=== PATIENT | female | born 1950 | race Caucasian/White ===

== ENCOUNTER 2018-06-09 22:08 | Emergency (ER) | payer OTHER, SELFPAY ==
[2018-06-09 22:24] VITALS: BP 130/84; PULSE 81; RESP 18; TEMP 36.8; O2SAT 98; BMI 33.6
--- NOTE | 2018-06-09 22:40 | DI.RAD.S_ITS ---
PROCEDURE: XR CHEST 2V INDICATIONS: Shortness of breath, cough, fever TECHNIQUE: 2 views of the chest were acquired. COMPARISON: [facility], , CHEST 2 VIEW, 12/27/2012, 16:58. FINDINGS: Surgical changes and devices: None. Lungs and pleura: No pleural effusions or pneumothorax. Lungs are clear. Mediastinum: Mediastinal contours are normal. Heart size is normal. Bones and chest wall: No suspicious bony abnormalities. Soft tissues appear unremarkable. IMPRESSION: No acute disease Dictated by: Matteo Anders M.D. on 06/10/2018 at 7:45 Approved by: Matteo Anders M.D. on 06/10/2018 at 7:46
[2018-06-09 23:00] LABS: Add Manual Diff / Slide Review NO; Basophils Percent Auto 0.1 % (0-2); Eosinophils Percent Auto 0.3 % (2-4); Hematocrit 43.8 % (36-46); Hemoglobin 14.9 g/dL (12.0-16.0); Mean Corpuscular HGB Conc 33.9 % (30-36); Mean Corpuscular Hemoglobin 29.5 PG (26-34); Mean Corpuscular Volume 86.8 fL (80-100); Monocytes Percent Auto 2.8 % (3-14); Neutrophils Absolute Auto 5200 /uL (3000-5900); Neutrophils Percent Auto 84.8 % (50-75); Platelet Count 155 X10^3/uL (150-400); Red Blood Cell Count 5.05 X10^6/uL (4.0-5.2); Red Cell Distribution Width 13.3 % (11.6-14.8); White Blood Cell Count 6.1 X10^3/uL (4.5-11.0)
[2018-06-09 23:12] LABS: Blood Urea Nitrogen 15 mg/dL (7-17); Calcium 9.4 mg/dL (8.4-10.2); Carbon Dioxide 27 mmol/L (22-32); Chloride 97 mmol/L (98-107); Estimated Glomerular Filt Rate > 60.0 mL/min (>60); Glucose 406 mg/dL (80-110); HEMOLYSIS < 15 (0-50); Potassium 4.5 mmol/L (3.4-5.1); Sodium 133 mmol/L (137-145)
[2018-06-09 23:37] LABS: Procalcitonin < 0.05 ng/mL (<0.5)
[2018-06-10 00:08] VITALS: BP 115/59; PULSE 81; O2SAT 99
--- NOTE | 2018-06-10 01:29 | ED_ITS ---
HPI - Wound/Laceration General Chief Complaint: Wound/Laceration Stated Complaint: LEG INFECTION,COUGH Time Seen by Provider: 06/09/18 22:15 Source: patient and family Mode of arrival: ambulatory Limitations: no limitations History of Present Illness HPI narrative: 67-year-old female smoker with history of diabetes presents to the emergency department with her daughter and a chief complaint ongoing left lower leg infection and feeling generally fatigued for quite some time.She states that she had been seen and evaluated for a wound on her left anterior leg in the absence of any specific or known injury. Her primary care provider put her on Bactrim and she admittedly had not really been taking it with much frequency. She has been however for the past few days and states that her leg looks much better. The swelling has decreased, the erythema has decreased and the wound has scabbed over. She had some fever and chills 3 or 4 days ago but none more recently. Additionally she had had some cough which is not productive of sputum. She denies nausea, vomiting or diarrhea. she admits to significant stress in her life as her daughter about 1 week ago and this has admittedly been throwing off her whole routine Onset (ago): day(s) Extremity Location: Left: lower leg [address]: home Patient tetanus UTD: Yes Context: accidental Associated symptoms: none Related Data Home Medications Medication Instructions Recorded Confirmed Atorvastatin Calcium (Lipitor) 40 mg PO Q DAY #0 03/16/10 Bupropion Hydrochloride 150 mg PO Q DAY #0 03/16/10 (Wellbutrin Sr) CHOLECALCIFEROL (VITAMIN D3) 800 iu Q DAY #0 03/16/10 (Vitamin D3) ESCITALOPRAM OXALATE (Lexapro) 20 mg PO Q DAY #0 03/16/10 HYDROCODONE/ACET 5/500 - BID #0 03/16/10 (Hydrocodon-Acetaminophen 5-500) INSULIN GLARGINE 10ML (LANTUS) 34 units Q DAY #0 03/16/10 INSULIN HUMAN LISPRO 10ML (HUMALOG) #0 03/16/10 LEVOTHYROXINE SODIUM (Synthroid) 100 mcg PO Q DAY #0 03/16/10 MULTIVITAMIN (Multivitamin 1 cap PO EVERY DAY #0 03/16/10 -) OLANZAPINE (ZYPREXA) 2.5 mg PO Q DAY #0 03/16/10 OMEPRAZOLE 20 mg PO Q DAY #0 03/16/10 SPIRONOLACTONE (Aldactone) 25 mg PO Q DAY #0 03/16/10 Trazodone Hydrochloride (Trazodone 100 mg PO HS #0 03/16/10 HCl) [COENZYME Q 10] Q DAY #0 03/16/10 [EVOXAC] 30 mg TID #0 03/16/10 [REQUIP] 3 mg Q DAY #0 03/16/10 morphine 15 mg PO Q6HP PRN #0 03/16/10 gabapentin [Neurontin] 600 mg PO TID #0 01/06/17 Review of Systems Review of Systems All systems reviewed & are unremarkable except as noted in HPI and below Constitutional Denies chills, Denies fever(s), Denies lethargy and Reports weakness Eyes Denies change in vision, Denies eye discharge, Denies irritation and Denies loss of vision ENT Ears, Nose, Mouth, and Throat: Denies change in voice, Denies neck pain and Denies sore throat Cardiovascular Denies chest pain, Denies irregular heart rhythm, Denies lightheadedness, Denies palpitations, Denies dyspnea, Denies dyspnea on exertion and Denies orthopnea Respiratory Reports cough, Denies dyspnea, Denies dyspnea on exertion and Denies wheezing Gastrointestinal Gastrointestinal: Denies abdominal pain, Denies change in bowel habits, Denies diarrhea, Denies nausea and Denies vomiting Genitourinary Denies hematuria, Denies flank pain, Denies urinary incontinence and Denies urinary urgency Musculoskeletal Denies neck pain Integumentary/Breasts Denies pruritus, Reports erythema, Denies rash, Reports skin swelling and Reports wounds Neurologic Denies confusion, Denies loss of vision and Reports weakness Psychiatric Denies anxiety, Denies confusion, Denies depression, Denies homicidal ideation and Denies suicidal ideation Endocrine Denies palpitations Hematologic/Lymphatic Denies easy bruising Allergic/Immunologic Denies wheezing [facility] Medical History Depression (Acute) Diabetes (Acute) GERD (gastroesophageal reflux disease) (Acute) Social History Smoking Status: Current every day smoker Exam Narrative Exam Narrative: GENERAL: 67-year-old female appears to be in no obvious or significant distress HEAD: Atraumatic. Normocephalic. No temporal or scalp tenderness. EYES: Pupils equal round and reactive. Extraocular motions intact. No scleral icterus. No injection or drainage. ENT: Nose without bleeding, purulent drainage or septal hematoma. Throat without erythema, tonsillar hypertrophy or exudate. Uvula midline. Airway patent. NECK: Trachea midline. No JVD or lymphadenopathy. Supple, nontender, no meningeal signs. CARDIOVASCULAR: Regular rate and rhythm without murmurs, gallops, or rubs. RESPIRATORY: Prolonged expiratory phase with decreased breath sounds bilaterally but no obvious rales, rhonchi or wheeze GASTROINTESTINAL: Abdomen soft, non-tender, nondistended. No hepato-splenomegaly , or palpable masses. No guarding. EXTREMITIES: Minimal erythema to left lower extremity with a 2 cm healing wound on the anterior thomas in the distal 3rd. It has scabbed over No clubbing , cyanosis, or edema. No joint tenderness, effusion, or edema noted. BACK: Nontender without deformity or crepitance. No flank tenderness. NEURO: AOx3. SKIN: No rash or erythema. Initial Vital Signs Initial Vital Signs: Vital Signs Temperature 98.2 F 06/09/18 22:24 Pulse Rate 81 06/09/18 22:24 Respiratory Rate 18 06/09/18 22:24 Blood Pressure 130/84 06/09/18 22:24 Pulse Oximetry 98 06/09/18 22:24 Course Orders Ordered: ED Orders 06/09/18 22:40 XR chest 2V Stat 06/09/18 22:51 Basic Metabolic Panel Stat Complete Blood Count AUTO DIFF Stat Procalcitonin Stat Vital Signs - 8 hr 06/09/18 22:24 06/10/18 00:08 Temperature 98.2 F Pulse Rate 81 81 Respiratory Rate 18 Blood Pressure 130/84 Blood Pressure [Right Arm] 115/59 L Pulse Oximetry 98 99 MDM - Wound/Laceration Differential Diagnosis Differential diagnosis: Likely abscess and abrasion Lab Data Attestation: I reviewed the patient's lab results. Result diagrams: 06/09/18 22:51 06/09/18 22:51 Lab Results 06/09/18 06/09/18 06/09/18 Range/Units 22:51 22:51 22:51 WBC 6.1 (4.5-11.0) X10^3/uL RBC 5.05 (4.0-5.2) X10^6/uL Hgb 14.9 (12.0-16.0) g/dL Hct 43.8 (36-46) % MCV 86.8 (80-100) fL MCH 29.5 (26-34) PG MCHC 33.9 (30-36) % RDW 13.3 (11.6-14.8) % Plt Count 155 (150-400) X10^3/uL Neut % (Auto) 84.8 H (50-75) % Lymph % (Auto) 12.0 L (25-40) % [place] % (Auto) 2.8 L (3-14) % Eos % (Auto) 0.3 L (2-4) % Baso % (Auto) 0.1 (0-2) % Neut # (Auto) 5200 (0998-5065) /uL Sodium 133 L (137-145) mmol/L Potassium 4.5 (3.4-5.1) mmol/L Chloride 97 L (98-107) mmol/L Carbon Dioxide 27 (22-32) mmol/L BUN 15 (7-17) mg/dL Creatinine 0.50 L (0.52-1.04) mg/dL Estimated GFR > 60.0 (>60) mL/min BUN/Creatinine Ratio 30.0 H (6-22) Glucose 406 H (80-110) mg/dL Calcium 9.4 (8.4-10.2) mg/dL Procalcitonin < 0.05 (<0.5) ng/mL MDM Narrative Medical decision making narrative: Patient has shown (reported) marked improvement of cellulitis. She has very minimal erythema and no induration or fluctuance. She's had no systemic findings such as fever or chills for the past few days. Though she has had cough she has no physical exam, imaging, or labs suggesting bacterial pneumonia. Discharge Plan Departure Patient Disposition: Home Clinical Impression: Upper respiratory infection, viral, Cellulitis of left leg Discharge Date/Time: 06/10/18 00:26 Interventions: ED Discharge Assessment Last Done: 06/10/18 00:25 Instructions: DI for Cellulitis -- Adult Activity Restrictions/Additional Instructions: *You have been diagnosed with [ viral upper respiratory infection and improving Left Leg cellulitis ] *What to do: *Take medications as directed *Follow up with your primary care provider in 2-3 days, call for an appointment. Let them know you were seen in the Emergency Department and that we ask that you be seen in follow up *Return to ER if you should have any new, worsening or concerning symptoms Prescriptions: No Action INSULIN GLARGINE 10ML (LANTUS) 34 units Q DAY Qty: 0 RF: 0 INSULIN HUMAN LISPRO 10ML (HUMALOG) Qty: 0 RF: 0 morphine 15 MG tablet 15 mg PO Q6HP PRNQty: 0 RF: 0 HYDROCODONE/ACET 5/500 - (Hydrocodon-Acetaminophen 5-500) BID Qty: 0 RF: 0 CHOLECALCIFEROL (VITAMIN D3) (Vitamin D3) 800 iu Q DAY Qty: 0 RF: 0 MULTIVITAMIN (Multivitamin -) 1 cap PO EVERY DAY Qty: 0 RF: 0 [EVOXAC] 30 mg TID Qty: 0 RF: 0 Atorvastatin Calcium (Lipitor) 40 mg PO Q DAY Qty: 0 RF: 0 LEVOTHYROXINE SODIUM (Synthroid) 100 mcg PO Q DAY Qty: 0 RF: 0 SPIRONOLACTONE (Aldactone) 25 mg PO Q DAY Qty: 0 RF: 0 Trazodone Hydrochloride (Trazodone HCl) 100 mg PO HS Qty: 0 RF: 0 [COENZYME Q 10] Q DAY Qty: 0 RF: 0 Bupropion Hydrochloride (Wellbutrin Sr) 150 mg PO Q DAY Qty: 0 RF: 0 ESCITALOPRAM OXALATE (Lexapro) 20 mg PO Q DAY Qty: 0 RF: 0 OLANZAPINE (ZYPREXA) 2.5 mg PO Q DAY Qty: 0 RF: 0 OMEPRAZOLE 20 mg PO Q DAY Qty: 0 RF: 0 [REQUIP] 3 mg Q DAY Qty: 0 RF: 0 gabapentin [Neurontin] 600 MG tablet 600 mg PO TID Qty: 0 RF: 0 Referrals: Karmen Avalos PA-C [Primary Care Provider] -
== END 2018-06-10 00:26 | disposition home or self-care (01) ==
PROVIDERS: Emergency Provider Emergency Medicine; Family Provider Physician Assistant; PCP Physician Assistant
DX: L03.116 Cellulitis of left lower limb (principal); J06.9 Acute upper respiratory infection, unspecified
CPT/HCPCS: 36415; 71046; 80048; 84145; 85025; 99283; 99284

== ENCOUNTER 2018-06-24 00:12 | Inpatient (IN) | payer OTHER, SELFPAY ==
[2018-06-24] VITALS (33 sets, daily range): BP systolic 78–134; BP diastolic 29–80; PULSE 67–127; RESP 14–27; TEMP 36.7–39.4; O2SAT 88–99; BMI 33.0; BMI 35.2
--- NOTE | 2018-06-24 | DI.US.S_ITS ---
PROCEDURE: US ABDOMEN COMPLETE INDICATIONS: elevated liver enzymes TECHNIQUE: Real-time scanning was performed of the abdominal and retroperitoneal organs, with image documentation. COMPARISON: [facility], [place], ABDOMEN/PELVIS WITH CONTRAST, 04/10/2009, 7:51. FINDINGS: Liver: The liver demonstrates normal size. The liver demonstrates generalized increased echogenicity. This decreases ultrasound sensitivity for detection of hepatic masses. Gallbladder: No findings of gallstones or sludge are seen. The gallbladder wall is not thickened, measuring 3 mm or less. No specific pericholecystic fluid is seen. The sonographic Mayorga sign is negative. Biliary ducts: Intrahepatic bile ducts are non-dilated. Extrahepatic bile duct caliber measures 7 mm. Normal is 6-7 mm or less in diameter, or 10 mm or less post-cholecystectomy. Pancreas: Visualized portions of the pancreas are sonographically normal. Spleen: Spleen is normal in size and homogeneous in echotexture. Kidneys: Kidneys are normal in size and echotexture. Right kidney measures 10.7 cm long; left kidney measures 10.3 cm long. No hydronephrosis or nephrolithiasis. No solid masses. The renal cortex measures within normal limits for thickness. Aorta: Not seen, obscured by overlying bowel gas. Iliacs: Not seen, obscured by overlying bowel gas. IVC: Not seen, obscured by overlying bowel gas. Miscellaneous: No free abdominal fluid. IMPRESSION: The liver demonstrates increased echogenicity. This finding is nonspecific, yet it is most commonly attributed to fatty infiltration. However, differential diagnosis includes cirrhosis and fibrosis in this patient. Limited study, without visualization of the aorta, IVC, or iliac arteries. Dictated by: Matt Richardson M.D. on 06/24/2018 at 11:19 Approved by: Matt Richardson M.D. on 06/24/2018 at 11:21
--- NOTE | 2018-06-24 00:20 | PC.NURSE ---
Attempted to reconcile meds pt unable to list meds states daughter will be bringing a med list in.
--- NOTE | 2018-06-24 00:38 | ED.GENADULT ---
HPI - General Adult General Chief complaint: Diabetic Problem Stated complaint: Low Blood Sugar Time Seen by Provider: 06/24/18 00:13 Source: patient, family (daughter) and old records reviewed Mode of arrival: EMS Limitations: no limitations History of Present Illness HPI narrative: This is a 67-year-old female comes to the emergency department for low blood sugar. Patient and her daughter stated they were checking it because she was not feeling well and she checked it about 6 or 8 times daily anyway. Patient states that she had started all of bathroom on the 2nd round for an infection in her left lower extremity. She states she has not had fevers but she started feeling nauseated and felt like she needed to throw up. She has some abdominal pain after the antibiotic. She has not had any rashes, no swelling or skin changes, no difficulty breathing or chest pain. No tightness in her throat. Patient states her leg was getting better after 1st round of antibiotics which were also Bactrim but then it has been returning. She just started the most recent dose in the last 24 hr. Patient id has not had any diarrhea or constipation. She has not had any new urinary symptoms. She has lost weight and has not been eating much recently and has been decreasing her insulin dose. Patient states that her daughter did pass away about a month ago. She also states she was started on Adderall recently she also give her morphine 2 normally takes about 8:00 a.m. at night. She takes some and a half to 15 mg by mouth. Related Data Home Medications Medication Instructions Recorded Confirmed Atorvastatin Calcium (Lipitor) 40 mg PO Q DAY #0 03/16/10 Bupropion Hydrochloride 150 mg PO Q DAY #0 03/16/10 (Wellbutrin Sr) CHOLECALCIFEROL (VITAMIN D3) 800 iu Q DAY #0 03/16/10 (Vitamin D3) ESCITALOPRAM OXALATE (Lexapro) 20 mg PO Q DAY #0 03/16/10 HYDROCODONE/ACET 5/500 - BID #0 03/16/10 (Hydrocodon-Acetaminophen 5-500) INSULIN GLARGINE 10ML (LANTUS) 34 units Q DAY #0 03/16/10 INSULIN HUMAN LISPRO 10ML (HUMALOG) #0 03/16/10 LEVOTHYROXINE SODIUM (Synthroid) 100 mcg PO Q DAY #0 03/16/10 MULTIVITAMIN (Multivitamin 1 cap PO EVERY DAY #0 03/16/10 -) OLANZAPINE (ZYPREXA) 2.5 mg PO Q DAY #0 03/16/10 OMEPRAZOLE 20 mg PO Q DAY #0 03/16/10 SPIRONOLACTONE (Aldactone) 25 mg PO Q DAY #0 03/16/10 Trazodone Hydrochloride (Trazodone 100 mg PO HS #0 03/16/10 HCl) [COENZYME Q 10] Q DAY #0 03/16/10 [EVOXAC] 30 mg TID #0 03/16/10 [REQUIP] 3 mg Q DAY #0 03/16/10 morphine 15 mg PO Q6HP PRN #0 03/16/10 gabapentin [Neurontin] 600 mg PO TID #0 01/06/17 Allergies Allergy/AdvReac Type Severity Reaction Status Date / Time No Known Drug Allergies Allergy Verified 06/24/18 00:29 Review of Systems Review of Systems All systems reviewed & are unremarkable except as noted in HPI and below Constitutional Reports chills, Reports fatigue, Denies fever(s), Reports poor appetite and Denies weakness Eyes Denies change in vision Cardiovascular Denies chest pain, Denies syncope, Denies irregular heart rhythm, Denies lightheadedness, Denies palpitations, Denies dyspnea, Denies dyspnea on exertion and Denies orthopnea Respiratory Denies chest congestion, Denies cough, Denies excessive phlegm production, Denies dyspnea, Denies dyspnea on exertion and Denies wheezing Gastrointestinal Gastrointestinal: Reports abdominal pain, Denies melena, Denies hematochezia, Denies change in bowel habits, Denies constipation, Denies diarrhea, Reports nausea and Denies vomiting Genitourinary Denies hematuria, Denies flank pain, Denies urinary incontinence, Denies urinary hesitancy and Denies urinary urgency Musculoskeletal Reports back pain Integumentary/Breasts Reports non-healing lesions (Left leg) and Reports rash Neurologic Reports as per HPI, Denies syncope and Denies weakness Endocrine Reports fatigue and Denies palpitations Allergic/Immunologic Denies wheezing PFSH Medical History Depression (Acute) Diabetes (Acute) Fibromyalgia (Acute) GERD (gastroesophageal reflux disease) (Acute) Surgical History H/O total hysterectomy (Acute) Social History Smoking Status: Current every day smoker Exam Narrative Exam Narrative: GENERAL: Alert and oriented x three, obese, well-appearing female in moderate distress. Patient is quite anxious. Patient shaking issues diaphoretic. HEENT: Head normocephalic, atraumatic, EOMI, pupils reactive, face symmetric, moist mucous membranes NECK: Supple, full range of motion CARDIOVASCULAR: Tachycardic but Regular rate and rhythm without murmurs, rubs or gallops. RESPIRATORY: Breath sounds equal bilaterally, no wheezes rales or rhonchi. ABDOMEN: Soft, nontender. Normoactive bowel sounds all 4 quadrants. No guarding or rebound, rigidity, no mass : No CVA tenderness EXTREMITIES: Normal range of motion, no clubbing, patient has trace edema bilaterally, patient's left lower extremity has erythema with some some hyperkeratotic skin in healing wounds on the right anterior thomas. The leg is warm to touch. There is no discharge or obvious oozing at this time. Patient has 2+ pulses bilaterally. Neurovascularly intact NEUROLOGICAL: Cranial nerves II through XII grossly intact. Moving all extremities SKIN: Warm, dry, no petechiae, see above Initial Vital Signs Initial Vital Signs: Vital Signs Temperature 98.1 F 06/24/18 00:29 Pulse Rate 127 H 06/24/18 00:29 Respiratory Rate 22 06/24/18 00:29 Blood Pressure 118/47 L 06/24/18 00:29 Pulse Oximetry 95 06/24/18 00:29 Scores qSOFA Altered Mental Status (GCS <15): No Respiratory rate greater than/equal to 22: Yes Systolic blood pressure less than or equal to 100: No (systolic 107) qSOFA Total: 1 0-1 Not High Risk 1-3 High risk Course Orders Ordered: ED Orders 06/24/18 00:25 EKG-12 Lead Stat 06/24/18 00:33 Complete Blood Count AUTO DIFF Stat Comprehensive Metabolic Panel Stat Lipase Stat Partial Thromboplastin Time Stat Procalcitonin Stat Prothrombin Time INR Stat 06/24/18 01:02 XR abdomen 1V Stat XR chest 1V Stat 06/24/18 01:10 Blood Culture Stat 06/24/18 01:15 Lactate (Lactic Acid) Stat Sodium Chloride (Normal Saline 0.9%) 2,912.07 mls @ 970.69 mls/hr 30 ml/kg infuse over 3 hr (2912.07 ml) IV CONT FRANCISCO JAVIER Last Admin: 06/24/18 02:22 Dose: 970.69 mls/hr Discontinued Medications Sodium Chloride (Normal Saline 0.9%) 500 mls @ 1,000 mls/hr IV BOLUS ONE Stop: 06/24/18 01:30 Last Infusion: 06/24/18 02:00 Dose: 1,000 mls/hr Admin: 06/24/18 01:08 Dose: 1,000 mls/hr Clindamycin Phosphate (Cleocin) 900 mg in 50 mls @ 50 mls/hr IV NOW ONE Stop: 06/24/18 02:51 Last Admin: 06/24/18 02:13 Dose: 50 mls/hr Ibuprofen (Advil) 800 mg PO NOW ONE Stop: 06/24/18 02:02 Last Admin: 06/24/18 02:08 Dose: 800 mg Lorazepam (Ativan) 0.5 mg IV NOW ONE Stop: 06/24/18 01:02 Last Admin: 06/24/18 01:08 Dose: 0.5 mg Morphine Sulfate (Morphine Sulfate) 4 mg IV NOW ONE Stop: 06/24/18 00:56 Last Admin: 06/24/18 00:57 Dose: 4 mg Ondansetron HCl (Zofran) 4 mg IV NOW ONE Stop: 06/24/18 00:31 Last Admin: 06/24/18 00:55 Dose: 4 mg Vital Signs - 8 hr 06/24/18 00:29 06/24/18 01:00 06/24/18 01:10 Temperature 98.1 F 98.1 F Pulse Rate 127 H 111 H 111 H Respiratory Rate 22 24 24 Blood Pressure 118/47 L 118/47 L Blood Pressure [Left Arm] 107/80 Pulse Oximetry 95 98 98 06/24/18 02:08 06/24/18 02:40 06/24/18 02:56 Temperature 103.0 F H 102.9 F H Pulse Rate 112 H Respiratory Rate 24 Blood Pressure Blood Pressure [Left Arm] 103/48 L Pulse Oximetry 93 Medical Decision Making Lab Data Lab results reviewed: Yes I reviewed the patient's lab results. Result diagrams: 06/24/18 00:33 06/24/18 00:33 Lab Results 06/24/18 06/24/18 06/24/18 Range/Units 00:33 00:33 00:33 WBC 3.1 L (4.5-11.0) X10^3/uL RBC 5.08 (4.0-5.2) X10^6/uL Hgb 14.8 (12.0-16.0) g/dL Hct 44.3 (36-46) % MCV 87.2 (80-100) fL MCH 29.1 (26-34) PG MCHC 33.4 (30-36) % RDW 13.3 (11.6-14.8) % Plt Count 277 (150-400) X10^3/uL Neut % (Auto) 85.2 H (50-75) % Lymph % (Auto) 13.8 L (25-40) % [place] % (Auto) 0.5 L (3-14) % Eos % (Auto) 0.4 L (2-4) % Baso % (Auto) 0.1 (0-2) % Neut # (Auto) 2700 L (4114-3741) /uL PT 11.1 (10.1-12.7) SECONDS INR 1.0 (0.9-1.3) APTT 26 L (26.4-36.2) SECONDS Sodium 144 (137-145) mmol/L Potassium 3.9 (3.4-5.1) mmol/L Chloride 101 (98-107) mmol/L Carbon Dioxide 32 (22-32) mmol/L BUN 13 (7-17) mg/dL Creatinine 0.60 (0.52-1.04) mg/dL Estimated GFR > 60.0 (>60) mL/min BUN/Creatinine Ratio 21.7 (6-22) Glucose 95 (80-110) mg/dL Lactate (0.7-2.1) mmol/L Calcium 9.0 (8.4-10.2) mg/dL Total Bilirubin 0.7 (0.2-1.3) mg/dL AST 386 H (14-36) IU/L ALT 146 H (9-52) IU/L Alkaline Phosphatase 124 (38-126) U/L Total Protein 6.8 (6.3-8.2) g/dL Albumin 3.8 (3.5-5.0) g/dL Globulin 3.0 (1.7-4.1) g/dL Albumin/Globulin Ratio 1.3 (1.0-2.8) Lipase 43 (23-300) U/L Procalcitonin (<0.5) ng/mL 06/24/18 06/24/18 Range/Units 00:33 01:15 WBC (4.5-11.0) X10^3/uL RBC (4.0-5.2) X10^6/uL Hgb (12.0-16.0) g/dL Hct (36-46) % MCV (80-100) fL MCH (26-34) PG MCHC (30-36) % RDW (11.6-14.8) % Plt Count (150-400) X10^3/uL Neut % (Auto) (50-75) % Lymph % (Auto) (25-40) % [place] % (Auto) (3-14) % Eos % (Auto) (2-4) % Baso % (Auto) (0-2) % Neut # (Auto) (2486-6670) /uL PT (10.1-12.7) SECONDS INR (0.9-1.3) APTT (26.4-36.2) SECONDS Sodium (137-145) mmol/L Potassium (3.4-5.1) mmol/L Chloride (98-107) mmol/L Carbon Dioxide (22-32) mmol/L BUN (7-17) mg/dL Creatinine (0.52-1.04) mg/dL Estimated GFR (>60) mL/min BUN/Creatinine Ratio (6-22) Glucose (80-110) mg/dL Lactate 2.9 H (0.7-2.1) mmol/L Calcium (8.4-10.2) mg/dL Total Bilirubin (0.2-1.3) mg/dL AST (14-36) IU/L ALT (9-52) IU/L Alkaline Phosphatase (38-126) U/L Total Protein (6.3-8.2) g/dL Albumin (3.5-5.0) g/dL Globulin (1.7-4.1) g/dL Albumin/Globulin Ratio (1.0-2.8) Lipase (23-300) U/L Procalcitonin 0.46 (<0.5) ng/mL Point of Care Testing Glucose POC 91 Point of care testing: Point of Care Testing Glucose POC 91 Imaging Data Chest x-ray: Attestation: I personally reviewed and interpreted this imaging study as follows: My impression: nap, no pneumonia or infiltrate noted. Patient CXR appears similar to prior. Abdominal x-ray: Radiologist's impression: no air fluid levels, patient has stool and air throughout, clips in place consistent w/ prior surgical hx. ECG Data Attestation: I personally reviewed and interpreted this ECG as follows: Interpretation: Sinus tachycardia with a rate of 130, P are 152, QRS of 83 and QTC of 466. Nonspecific T-wave changes. Patient is also quite shaky in the room shows difficult to get a clear EKG. Prior from 04/10/12 appears similar. MDM Narrative Medical decision making narrative: Recheck sugar is 92, patient is feeling quite nauseated and had zofran en route and in department with continued symptoms. Patient may also have some withdrawl symptoms she also has a cellulitis of her right leg and could be the cause of her tachycardia. Patient HR is improving but still elevated, labs show low WBC, elevated lft's at ast and ALT, and elevated lactate at 2.9. Patient has been describing chill, concern for worsneing cellulitis in leg and failed outpatient treatment and observe. Dr. Lugo accepts with plan for fluids and abx. Patient HR is improving with fluids. BP low. Discussed his low white count, her fever, lactate elevated. Her AST ALT are slightly elevated the patient was nontender on exam. Two 6 through set show any acute infiltrate. Abdominal x-ray shows some slightly enlarged bowel but no air-fluid levels and appears to have stool and fluid throughout. Patient does have a clear source of infection with the swelling, redness and chronic wound of her left lower extremity. She was started on clindamycin IV. Additional Information: Discharge Plan Departure Patient Disposition: Admitted As Inpatient Clinical Impression: Cellulitis of leg, Sepsis Referrals: Karmen Avalos PA-C [Primary Care Provider] - Admit Date/Time: 06/24/18 02:18 Admit Provider: Leonid Lugo
[2018-06-24 00:55] LABS: Prothrombin Time 11.1 SECONDS (10.1-12.7)
[2018-06-24] MEDS: ONDANSETRON 4 MG/2 ML INJ IV (00:55)
[2018-06-24 00:56] LABS: Add Manual Diff / Slide Review NO; Basophils Percent Auto 0.1 % (0-2); Eosinophils Percent Auto 0.4 % (2-4); Hematocrit 44.3 % (36-46); Hemoglobin 14.8 g/dL (12.0-16.0); Lymphocytes Percent Auto 13.8 % (25-40); Mean Corpuscular HGB Conc 33.4 % (30-36); Mean Corpuscular Hemoglobin 29.1 PG (26-34); Mean Corpuscular Volume 87.2 fL (80-100); Monocytes Percent Auto 0.5 % (3-14); Neutrophils Absolute Auto 2700 /uL (3000-5900); Neutrophils Percent Auto 85.2 % (50-75); Platelet Count 277 X10^3/uL (150-400); Red Blood Cell Count 5.08 X10^6/uL (4.0-5.2); Red Cell Distribution Width 13.3 % (11.6-14.8); White Blood Cell Count 3.1 X10^3/uL (4.5-11.0)
[2018-06-24] MEDS: MORPHINE 5 MG/ML INJ 4 MG IV (00:57)
[2018-06-24 00:58] LABS: PTT Partial Thromboplastin Tim 26 SECONDS (26.4-36.2)
[2018-06-24 00:59] LABS: Alanine Aminotransferase 146 IU/L (9-52); Albumin 3.8 g/dL (3.5-5.0); Albumin Globulin Ratio 1.3 (1.0-2.8); Alkaline Phosphatase 124 U/L (38-126); Aspartate Aminotransferase 386 IU/L (14-36); BUN Creatinine Ratio 21.7 (6-22); Bilirubin Total 0.7 mg/dL (0.2-1.3); Blood Urea Nitrogen 13 mg/dL (7-17); Carbon Dioxide 32 mmol/L (22-32); Chloride 101 mmol/L (98-107); Estimated Glomerular Filt Rate > 60.0 mL/min (>60); Glucose 95 mg/dL (80-110); HEMOLYSIS < 15 (0-50); Lipase 43 U/L (23-300); Potassium 3.9 mmol/L (3.4-5.1); Sodium 144 mmol/L (137-145); Total Protein 6.8 g/dL (6.3-8.2)
--- NOTE | 2018-06-24 01:02 | DI.RAD.S_ITS ---
PROCEDURE: XR ABDOMEN 1V INDICATIONS: hypoglycemia, nausea TECHNIQUE: One view of the abdomen acquired. COMPARISON: [facility], CT, ABDOMEN/PELVIS WITH CONTRAST, 04/10/2009, 7:51. FINDINGS: Surgical changes and devices: Surgical clips in the mid abdomen and left pelvis. Bowel: There is a large amount of stool in colon. Bowel gas pattern is nonobstructive. Soft tissues: Renal contour is obscured by stool. Visualized solid organ contours appear normal in size. Bones: No suspicious bony lesions. IMPRESSION: Large amount of stool in colon suggesting constipation. Dictated by: Madhavi Perrin M.D. on 06/24/2018 at 8:25 Approved by: Madhavi Perrin M.D. on 06/24/2018 at 8:26
--- NOTE | 2018-06-24 01:02 | DI.RAD.S_ITS ---
PROCEDURE: XR CHEST 1V INDICATIONS: hypoglycemia TECHNIQUE: One view of the chest was acquired. COMPARISON: [facility], , CHEST 2 VIEW, 12/27/2012, 16:58. [facility], , XR CHEST 2V, 06/09/2018, 22:30. FINDINGS: Surgical changes and devices: None. Lungs and pleura: No pleural effusions or pneumothorax. Lungs are clear. Mediastinum: Mediastinal contours appear normal. Heart size is normal. Bones and chest wall: No suspicious bony lesions. Overlying soft tissues appear unremarkable. IMPRESSION: No acute cardiopulmonary disease. Dictated by: Madhavi Perrin M.D. on 06/24/2018 at 8:26 Approved by: Madhavi Perrin M.D. on 06/24/2018 at 8:27
[2018-06-24] MEDS: LORazepam 2 MG/ML SYRINGE 0.5 MG IV (01:08)
[2018-06-24] MEDS: SODIUM CHLORIDE 0.9% 500 ML 1000 ML IV (01:08)
[2018-06-24 01:36] LABS: Lactate (Lactic Acid) 2.9 mmol/L (0.7-2.1)
[2018-06-24 01:55] LABS: Procalcitonin 0.46 ng/mL (<0.5)
[2018-06-24] MEDS: IBUPROFEN 400 MG TABLET 800 MG PO (02:08)
[2018-06-24] MEDS: CLINDAMYCIN 900 MG/50 ML PIGGYBACK 50 MG IV (02:13)
[2018-06-24] MEDS: SODIUM CHLORIDE 0.9% 970.69 ML IV ×2 (02:22→04:03)
[2018-06-24 05:22] LABS: Reflexed Lactate in 2 Hours Y
[2018-06-24 05:58] LABS: Lactate 2HR (Lactic Acid Rflx) 1.3 mmol/L (0.7-2.1)
--- NOTE | 2018-06-24 06:08 | PC.NURSE ---
0315: pt arrived via stretcher, A&OX3, LS: dim, desats to 84-86% RA, 2L NC 94%. LLE cellulitis scabbed and painful to touch. temp 103, removed all blankets except for top sheet, placed ice packs under her armpits and cold washcloth to her forehead. 0420: BP low, IVF infusing, temp improving 100.9, 0540: notfied Dr. Lugo regarding pt's vitals, VTO to transfer to the ICU and admin norepinephrine per protocol
--- NOTE | 2018-06-24 06:48 | PM.HP.1 ---
History of Present Illness Date Patient Seen: 06/24/18 Time Patient Seen: 06:30 Chief complaint: Low Blood Sugar Narrative: 67-year-old female presents with nausea fever and low blood sugars feeling lousy. She was seen by Karmen at the clinic in [place] on Thursday diagnosed with cellulitis started on some Bactrim. The patient had been treated for cellulitis in her left lower extremity a stumble of weeks ago and at that time she had a shallow ulcer on her left lower extremity that had some yellow-green drainage she was on antibiotics for a week at that time of Bactrim and these redness and swelling at that time improved she was seen in the ER on June 10 for viral respiratory infection at that time the leg reportedly looked good O but over the last several days the redness swelling and pain in the left lower extremity return and she was seen in the clinic on Thursday prescribed some Bactrim again and at that time her blood pressure was fine a blood sugar was fine when she got home however 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 Patient History Medical History Fibromyalgia (Acute) Meningioma (Acute) Restless leg syndrome (Acute) Sjogren's disease (Acute) Sleep apnea (Acute) Spinal stenosis, lumbar (Acute) Depression (Acute) Diabetes (Acute) Fibromyalgia (Acute) GERD (gastroesophageal reflux disease) (Acute) Surgical History H/O total hysterectomy (Acute) Family & Social History Social History: household members spouse Prior Living Arrangements House Safety & Behavioral: Feels Safe in Current No Environment Been Physically Hurt or No Threatened By a Person Suicidal Ideation Description None Suicide Plan Description No Plan Tobacco & Substance use: Tobacco type cigarettes Smoking Status Current every day smoker alcohol intake frequency a few times a month Substance Use Type does not use Meds Home Medications Medication Instructions Recorded Confirmed Type Atorvastatin Calcium (Lipitor) 40 mg PO Q DAY #0 03/16/10 06/24/18 History Bupropion Hydrochloride 150 mg PO Q DAY #0 03/16/10 06/24/18 History (Wellbutrin Sr) CHOLECALCIFEROL (VITAMIN D3) 800 iu Q DAY #0 03/16/10 06/24/18 History (Vitamin D3) ESCITALOPRAM OXALATE (Lexapro) 20 mg PO Q DAY #0 03/16/10 06/24/18 History HYDROCODONE/ACET 5/500 - BID #0 03/16/10 History (Hydrocodon-Acetaminophen 5-500) INSULIN GLARGINE 10ML (LANTUS) 34 units Q DAY #0 03/16/10 History INSULIN HUMAN LISPRO 10ML (HUMALOG) #0 03/16/10 History LEVOTHYROXINE SODIUM (Synthroid) 100 mcg PO Q DAY #0 03/16/10 06/24/18 History MULTIVITAMIN (Multivitamin 1 cap PO EVERY DAY #0 03/16/10 History -) OLANZAPINE (ZYPREXA) 2.5 mg PO Q DAY #0 03/16/10 06/24/18 History OMEPRAZOLE 20 mg PO Q DAY #0 03/16/10 06/24/18 History SPIRONOLACTONE (Aldactone) 25 mg PO Q DAY #0 03/16/10 06/24/18 History Trazodone Hydrochloride (Trazodone 100 mg PO HS #0 03/16/10 06/24/18 History HCl) [COENZYME Q 10] Q DAY #0 03/16/10 History [EVOXAC] 30 mg TID #0 03/16/10 06/24/18 History [REQUIP] 3 mg Q DAY #0 03/16/10 06/24/18 History morphine 15 mg PO Q6HP PRN #0 03/16/10 History gabapentin [Neurontin] 600 mg PO TID #0 01/06/17 History Allergies Allergy/AdvReac Type Severity Reaction Status Date / Time No Known Drug Allergies Allergy Verified 06/24/18 00:29 Review of Systems Constitutional Constitutional: Reports anorexia, Reports body ache(s), Reports chills and Reports malaise Eyes Eyes: Reports system reviewed; no additional complaints, except as documented ENT Ears, Nose, Mouth, and Throat: Yes system reviewed; no additional complaints, except as documented Cardiovascular Cardiovascular: Reports system reviewed; no additional complaints, except as documented Respiratory Respiratory: Reports system reviewed and no additional complaints, except as documented Gastrointestinal Gastrointestinal: Reports nausea Genitourinary Genitourinary: Reports system reviewed and no additional complaints, except as documented Musculoskeletal Musculoskeletal: Reports system reviewed; no additional complaints, except as documented Integumentary/Breasts Skin/Breast: Reports non-healing lesions, Reports erythema, Reports rash, Reports skin pain and Reports skin ulcer Neurologic Neurologic: Reports confusion Psychiatric Psychiatric: Reports system reviewed and no additional complaints, except as documented and Reports confusion Endocrine Endocrine: Reports system reviewed and no additional complaints, except as documented Hematologic/Lymphatic Hematologic/Lymphatic: Reports system reviewed and no additional complaints, except as documented Allergic/Immunologic Allergic/Immunologic: Reports system reviewed and no additional complaints, except as documented Exam Vital Signs (past 8 hours): - 06/24/18 00:29 06/24/18 01:00 06/24/18 01:10 Temperature 98.1 F 98.1 F Pulse Rate 127 H 111 H 111 H Respiratory Rate 22 24 24 Blood Pressure 118/47 L 118/47 L Blood Pressure [Left Arm] 107/80 Pulse Oximetry 95 98 98 06/24/18 02:08 06/24/18 02:40 06/24/18 02:56 Temperature 103.0 F H 102.9 F H Pulse Rate 112 H Respiratory Rate 24 Blood Pressure Blood Pressure [Left Arm] 103/48 L Pulse Oximetry 93 06/24/18 03:05 06/24/18 03:15 06/24/18 03:50 Temperature 102.9 F H 103.0 F H Pulse Rate 109 H 107 H Respiratory Rate 20 Blood Pressure 107/67 95/46 L Blood Pressure [Left Arm] Pulse Oximetry 93 06/24/18 04:00 06/24/18 04:20 06/24/18 05:25 Temperature Pulse Rate Respiratory Rate Blood Pressure 93/44 L 92/44 L 78/47 L Blood Pressure [Left Arm] Pulse Oximetry 06/24/18 05:30 06/24/18 05:50 06/24/18 06:40 Temperature 98.1 F 99.9 F H 99.6 F Pulse Rate 84 95 H Respiratory Rate 16 22 Blood Pressure 101/56 L 85/29 L Blood Pressure [Left Arm] Pulse Oximetry 92 89 L Oxygen Delivery Method Nasal Cannula Narrative Exam Narrative: She appeared quite uncomfortable in and distressed rather restless Oropharynx dry Neck is supple no JVD no bruit Lungs Clear to auscultation Heart tachycardic Abdomen mildly distended soft no sick no stent significant tenderness to palpation no organomegaly Lower extremities the left lower extremities with the edema from the ankle to the knee there is intense erythema from the foot up to the thomas area there is stasis dermatitis noted there is a scabbed over lesion on the lower extremity on the left also. Neuro exam she is awake she answers questions appropriately she seems a little slow in the uptake to questions however and no focal motor or sensory deficits Skin moist and warm Objective Labs Result Diagrams: 06/24/18 00:33 06/24/18 00:33 Labs: Laboratory Results - last 24 hr 06/24/18 06/24/18 06/24/18 00:33 00:33 00:33 WBC 3.1 L RBC 5.08 Hgb 14.8 Hct 44.3 MCV 87.2 MCH 29.1 MCHC 33.4 RDW 13.3 Plt Count 277 Neut % (Auto) 85.2 H Lymph % (Auto) 13.8 L [place] % (Auto) 0.5 L Eos % (Auto) 0.4 L Baso % (Auto) 0.1 Neut # (Auto) 2700 L PT 11.1 INR 1.0 APTT 26 L Sodium 144 Potassium 3.9 Chloride 101 Carbon Dioxide 32 BUN 13 Creatinine 0.60 Estimated GFR > 60.0 BUN/Creatinine Ratio 21.7 Glucose 95 Lactate Calcium 9.0 Total Bilirubin 0.7 AST 386 H ALT 146 H Alkaline Phosphatase 124 Total Protein 6.8 Albumin 3.8 Globulin 3.0 Albumin/Globulin Ratio 1.3 Lipase 43 Procalcitonin 06/24/18 06/24/18 06/24/18 00:33 01:15 05:38 WBC RBC Hgb Hct MCV MCH MCHC RDW Plt Count Neut % (Auto) Lymph % (Auto) [place] % (Auto) Eos % (Auto) Baso % (Auto) Neut # (Auto) PT INR APTT Sodium Potassium Chloride Carbon Dioxide BUN Creatinine Estimated GFR BUN/Creatinine Ratio Glucose Lactate 2.9 H 1.3 Calcium Total Bilirubin AST ALT Alkaline Phosphatase Total Protein Albumin Globulin Albumin/Globulin Ratio Lipase Procalcitonin 0.46 Assessment & Plan Plan: Assessment/Plan Narrative: 1.Cellulitis with sepsis. The patient came through the emergency room about 3:00 a.m. in the morning came to the medical floor and she was placed on IV fluids per sepsis protocol she had been mildly hypotensive in the emergency department with systolic pressure in the 90s. About 530 in the morning I received a call from nursing stating that the patient's blood pressure was persistently low with blood pressure systolic down the 70s despite aggressive fluid management over the previous few hours. At that point we have moved the patient to ICU started her on Levophed and continued her with aggressive IV fluid management. Her lactate level initially elevated at 2.9 did come down to 1.3. Procalcitonin level elevated. Plan to continue antibiotics and continue with aggressive fluid management 2. Diabetes she had load of hypoglycemia initially we will watch this closely hold her normal doses of NovoLog keep her on the Lantus and then give her as needed doses of NovoLog as needed 3. History of fibromyalgia she has been on hydrocodone and gabapentin and morphine will continue her oral morphine and gabapentin for now 4. History of hypertension on lisinopril that will be held along with the furosemide while she is septic 5. Hypothyroid plan to continue current medications 6. Code status he is full code 7. Depression continue current home medications
[2018-06-24] MEDS: NOREPINEPHRINE 4 MG in DEXTROSE 5% IN WATER 250 ML 30.48 ML IV (07:00)
[2018-06-24] MEDS: SODIUM CHLORIDE 0.9% 1,000 ML 200 ML IV ×4 (07:00→21:37)
--- NOTE | 2018-06-24 07:12 | PC.NURSE ---
[facility] ICU note: 0625: Pt arrived from acute care room 206. Alert, oriented X3, states she feels ill. Pt is flushed and temp is 99.6. IV in place in rt AC and NS started at 150cc/hr. Levophed drip started at 4mcg/min. B/P 110/38 (63). Dr. Lugo here, speaking to patient. 0655: Bah catheter placed. Urine is clear ne, about 200cc in bag. CBG 189. Pt is anxious and wants her daughter at bedside. Daughter is in acute care, and notified of mothers request. Pt sipping on water and tolerating well.
[2018-06-24] MEDS: MORPHINE ER 15 MG TABLET PO ×3 (09:02→21:30)
[2018-06-24] MEDS: INSULIN ASPART 100 UNIT/ML INSULN PEN SUBCUT ×4 (09:03→21:27)
[2018-06-24] MEDS: ENOXAPARIN 40 MG/0.4 ML SYRINGE SUBCUT (09:03)
[2018-06-24] MEDS: GABAPENTIN 600 MG TABLET 1200 MG PO ×3 (09:03→21:25)
[2018-06-24] MEDS: buPROPion SR 150 MG TAB PO ×2 (09:04→21:25)
[2018-06-24] MEDS: PANTOPRAZOLE 40 MG VIAL IV (09:04)
[2018-06-24 09:48] LABS: Bacteria Urine None Seen; WBC Urine None Seen (0-5/HPF)
[2018-06-24] MEDS: CEVIMELINE 1 EACH PO ×3 (09:49→21:26)
[2018-06-24] MEDS: ACETAMINOPHEN 325 MG TABLET 650 MG PO (09:50)
[2018-06-24] MEDS: ESCITALOPRAM 10 MG TABLET 40 MG PO (09:50)
--- NOTE | 2018-06-24 10:22 | DI.RAD.S_ITS ---
PROCEDURE: XR CHEST FOR PICC 1V INDICATIONS: PICC placement COMPARISON: None. FINDINGS: PICC was placed by the intravenous therapy team from the right side. Fluoroscopic spot film demonstrates tip of PICC in the SVC. IMPRESSION: Tip of PICC lies within the SVC. Dictated by: Madhavi Perrin M.D. on 06/24/2018 at 10:52 Approved by: Madhavi Perrin M.D. on 06/24/2018 at 10:52
[2018-06-24] MEDS: VANCOMYCIN 1,000 MG/200 ML FROZ.PIGGY 200 MG IV ×2 (10:48→18:12)
[2018-06-24 12:27] LABS: Appearance Urine UA CLEAR; Bilirubin Urine UA 1+ (NEGATIVE); Color Urine UA YELLOW; Glucose Urine UA 2+ g/dL (Normal); Ketones Urine UA TRACE (NEGATIVE); Leukocyte Esterase Urine UA NEGATIVE (NEGATIVE); Nitrite Urine UA NEGATIVE (Negative); Occult Blood Urine UA 3+ (Negative); Protein Urine UA 1+ (Negative)
[2018-06-24 12:30] LABS: RBC Urine 5-10/HPF (0-5/HPF); Transitional Epi Cells Urine 1-5/HPF (0-5/HPF)
[2018-06-24 12:31] LABS: Culture Indicated Urine Cult Not Indicated; Hyaline Casts Urine 1-5/LPF
[2018-06-24 14:25] LABS: Ictotest Urine Negative (Negative)
--- NOTE | 2018-06-24 15:27 | PC.NURSE ---
BP stable on 4 mcg/min IV levophed. TMAX 99.6. Only taking small amounts of clear liquids. Requesting to sleep and has refused turning all shift. Educated to risk for pressure ulcers and need for changing positions r/t pulmonary hygiene. She verbalizes understanding of this but continues to decline turning. At 1110 noted brief episode of bradycardia rate high 40s. Rhythm appears junctional. BP 149/78. Levophed decreased. Pt asymptomatic. No further episodes this shift. Will monitor.
[2018-06-24] MEDS: NOREPINEPHRINE 4 MG in DEXTROSE 5% IN WATER 250 ML 19.05 ML IV (18:04)
--- NOTE | 2018-06-24 18:29 | PC.NURSE ---
1745 - Pt sitting up in bed. Eating toast and soup. Denies lightheadedness, Denies pain. BP 92/34 Map 57, Levophed titrated up to 5mcg/min. Supportive family at bedside. Pt chatting, alert and oriented. Call light in reach.
[2018-06-24] MEDS: OLANZapine 2.5 MG TABLET PO (21:26)
[2018-06-24] MEDS: ATORVASTATIN 20 MG TABLET PO (21:26)
[2018-06-24] MEDS: INSULIN GLARGINE 100 UNIT/ML 3ML PEN 50 UNIT SUBCUT (21:28)
[2018-06-25] VITALS (20 sets, daily range): BP systolic 104–123; BP diastolic 44–59; PULSE 70–94; RESP 13–28; TEMP 36.4–38.3; O2SAT 90–99
[2018-06-25] MEDS: HYDROCODONE/ACET 5/325 TABLET 1 TAB PO (00:24)
[2018-06-25] MEDS: VANCOMYCIN 1,000 MG/200 ML FROZ.PIGGY 200 MG IV ×3 (02:18→18:15)
[2018-06-25] MEDS: SODIUM CHLORIDE 0.9% 1,000 ML 200 ML IV ×2 (02:31→10:07)
[2018-06-25] MEDS: MORPHINE ER 15 MG TABLET PO ×3 (04:30→21:07)
[2018-06-25 05:23] LABS: Hemoglobin 11.5 g/dL (12.0-16.0); Mean Corpuscular HGB Conc 33.8 % (30-36); Mean Corpuscular Hemoglobin 29.4 PG (26-34); Mean Corpuscular Volume 86.9 fL (80-100); Platelet Count 161 X10^3/uL (150-400); Red Blood Cell Count 3.91 X10^6/uL (4.0-5.2); Red Cell Distribution Width 13.7 % (11.6-14.8); White Blood Cell Count 5.9 X10^3/uL (4.5-11.0)
[2018-06-25 05:29] LABS: Alanine Aminotransferase 277 IU/L (9-52); Albumin 2.3 g/dL (3.5-5.0); Albumin Globulin Ratio 0.9 (1.0-2.8); Alkaline Phosphatase 86 U/L (38-126); Aspartate Aminotransferase 191 IU/L (14-36); BUN Creatinine Ratio 23.3 (6-22); Bilirubin Total 0.9 mg/dL (0.2-1.3); Blood Urea Nitrogen 14 mg/dL (7-17); Calcium 6.8 mg/dL (8.4-10.2); Carbon Dioxide 24 mmol/L (22-32); Chloride 105 mmol/L (98-107); Estimated Glomerular Filt Rate > 60.0 mL/min (>60); Globulin 2.5 g/dL (1.7-4.1); Glucose 265 mg/dL (80-110); HEMOLYSIS < 15 (0-50); Potassium 3.6 mmol/L (3.4-5.1); Sodium 135 mmol/L (137-145); Total Protein 4.8 g/dL (6.3-8.2)
[2018-06-25 05:47] LABS: Add Manual Diff / Slide Review YES
[2018-06-25] MEDS: PANTOPRAZOLE 20 MG TABLET PO (06:58)
[2018-06-25] MEDS: LEVOTHYROXINE 112 MCG TABLET PO (06:58)
--- NOTE | 2018-06-25 07:04 | PC.NURSE ---
NOC Shift: Pt remains AOx3 with periods of slight confusion when waking from sleep. Continues on home RTC pain meds w/adaquate pain relief. VSS, remains on Levophed gtt for SBP support and to keep MAP >65 currently weaned to 3mcg/min. Also having tempatures through shift TM 100.9. Bah. Remains ICU care.
[2018-06-25 07:33] LABS: Neutrophils Absolute Manual 4189 /uL (3000-5900); Total Cells Counted 100
[2018-06-25 07:34] LABS: RBC Morphology Normal Morphology; Smudge Cells 1+
--- NOTE | 2018-06-25 08:39 | PC.NURSE ---
Addendum entered by Christy Cabral R.N. 06/25/18 10:46: levophed weaned slowly. at this time, gtt at 0.5mcg/min with BP 102/42. pt had few bites breakfast. family at bedside. Original Note: pt reports right 2nd, 3rd, 4th fingers tingling and burning. right arm slightly more swollen compared to left. + radial pulse. B/L finger with decreased cap refill 4-5 sec. hands warm. pt reports fingers feel better after arm wrapped in warm blanket.
[2018-06-25] MEDS: GABAPENTIN 600 MG TABLET 1200 MG PO (08:54)
[2018-06-25] MEDS: ESCITALOPRAM 10 MG TABLET 40 MG PO (08:54)
[2018-06-25] MEDS: CEVIMELINE 1 EACH PO ×3 (08:54→21:08)
[2018-06-25] MEDS: ENOXAPARIN 40 MG/0.4 ML SYRINGE SUBCUT (08:54)
[2018-06-25] MEDS: INSULIN ASPART 100 UNIT/ML INSULN PEN SUBCUT ×2 (08:55→17:03)
[2018-06-25] MEDS: NOREPINEPHRINE 4 MG in DEXTROSE 5% IN WATER 250 ML 11.43 ML IV (10:06)
[2018-06-25] MEDS: buPROPion SR 150 MG TAB PO ×2 (10:07→21:09)
--- NOTE | 2018-06-25 10:46 | PM.PN.1 ---
Subjective Date Patient Seen: 06/25/18 Time Patient Seen: 10:46 Interval history: Much improved feeling better Exam Vital Signs (past 8 hours): - 06/25/18 03:00 06/25/18 04:00 06/25/18 04:30 Temperature 99.1 F 99.1 F Pulse Rate 88 89 Respiratory Rate 28 H 18 Blood Pressure 108/47 L 123/50 L Pulse Oximetry 93 97 06/25/18 05:00 06/25/18 06:00 06/25/18 06:57 Temperature 99.2 F Pulse Rate 70 76 Respiratory Rate 16 15 Blood Pressure 108/45 L 117/51 L Pulse Oximetry 99 97 06/25/18 07:45 06/25/18 09:06 06/25/18 10:00 Temperature 98.9 F 99.1 F Pulse Rate 73 83 86 Respiratory Rate 18 20 18 Blood Pressure 109/44 L 119/46 L 112/46 L Pulse Oximetry 98 98 93 Oxygen Delivery Method Room Air Oxygen Flow Rate 2 Narrative Exam Narrative: Resting quietly Oropharynx clear Neck is supple Lungs Clear to auscultation Heart regular rhythm Abdomen soft nontender Lower extremity the left lower extremity with erythema from just below the knee to the ankle and stasis dermatitis and the scabbed over lesion is still present much less tender and less red than yesterday Objective Labs Result Diagrams: 06/25/18 05:00 06/25/18 05:00 Labs: Laboratory Results - last 24 hr 06/24/18 06/25/18 06/25/18 08:15 05:00 05:00 WBC 5.9 D RBC 3.91 L Hgb 11.5 L Hct 34.0 L MCV 86.9 MCH 29.4 MCHC 33.8 RDW 13.7 Plt Count 161 Neut % (Auto) Not Reportable Lymph % (Auto) Not Reportable [place] % (Auto) Not Reportable Eos % (Auto) Not Reportable Baso % (Auto) Not Reportable Total Counted 100 Seg Neutrophils % 45.0 Band Neutrophils % 26.0 H Lymphocytes % (Manual) 15.0 L Monocytes % (Manual) 9.0 Eosinophils % (Manual) 4.0 Basophils % (Manual) 1.0 Neutrophils # (Manual) 4189 Smudge Cells 1+ H RBC Morphology Normal morphology Sodium 135 L Potassium 3.6 Chloride 105 Carbon Dioxide 24 BUN 14 Creatinine 0.60 Estimated GFR > 60.0 BUN/Creatinine Ratio 23.3 H Glucose 265 H D Calcium 6.8 L Total Bilirubin 0.9 AST 191 H ALT 277 H Alkaline Phosphatase 86 Total Protein 4.8 L Albumin 2.3 L Globulin 2.5 Albumin/Globulin Ratio 0.9 L Urine Color Yellow Urine Appearance Clear Urine pH 6.0 Ur Specific [place] 1.010 Urine Protein 1+ H Urine Glucose (UA) 2+ Urine Ketones Trace H Urine Occult Blood 3+ H Urine Nitrate Negative Urine Bilirubin 1+ H Urine Ictotest Negative Urine Urobilinogen 1.0 Ur Leukocyte Esterase Negative Urine RBC 5-10/hpf H Urine WBC None seen Ur Transition Epith Cell 1-5/hpf Urine Bacteria None seen Hyaline Casts 1-5/lpf Ur Culture Indicated? Cult not indicated Micro UA Comment Not Reportable Assessment & Plan Plan: Assessment/Plan Narrative: 1.Cellulitis with sepsis. Clinically improved white count is back up to normal now she is still requiring some aggressive fluid and pressors but has improved plan to wean the Levophed today wean down the fluids also continue antibiotics 2. Diabetes she had load of hypoglycemia initially we will watch this closely hold her normal doses of NovoLog keep her on the Lantus and then give her as needed doses of NovoLog as needed 3. History of fibromyalgia she has been on hydrocodone and gabapentin and morphine will continue her oral morphine and gabapentin for now 4. History of hypertension on lisinopril that will be held along with the furosemide while she is septic 5. Hypothyroid plan to continue current medications 6. Code status he is full code 7. Depression continue current home medications
[2018-06-25 12:05] LABS: Vancomycin Trough 11.4 ug/mL (10-20)
[2018-06-25 13:03] LABS: Hep C Virus Ab w/Reflex Quant NEGATIVE s/c (NEGATIVE)
--- NOTE | 2018-06-25 14:44 | CM.DANOTE ---
Discharge Planning/Care Management DCP/Assessment Met with patient and daughter/Anny: patient was feeling groggy during conversation but able to answer questions. Clinically patient is improving. Remains on IV abx and weaning levophed. Patient would benefit from a PT eval when medically appropriate. Patient resides with and Anny. Patient is independent in all ADLs but has not been taken proper care of herself since the of her daughter, roughly a month ago. Family states patient has only taken 2 showers in the last month and will only leave the house when her grandson (16 yr) calls and needs a ride. Patient reports she may need some OP MH resources. Patient currently sees Alexa Castillo in [place] for her psychiatric medication management. Patient states Dr. Castillo only treats her ADD. Discussed OP MH resources and [facility]. Patient has income of $1600/m for family of 2. She should qualify for some options through [employer]. This should be explored closer to discharge. Also discussed grief support groups held at . Another option could possible be HH with PT/[employer] [facility] if PT eval is complete and recommends additional support. Family's goal is for patient to discharge home with OP MH support. SW would need to follow up closer to discharge to determine the most appropriate course. Plan: Home when stable with supportive family. Patient would benefit from PT eval should MD determine it appropriate. SW to follow to rule out any HH needs and coordinate OP MH services. CM Discharge Assessment Start: 06/25/18 14:42 Freq: Status: Active Protocol: Document 06/25/18 14:42 (Rec: 06/25/18 14:44 [id number]) Discharge Planning Assessment Assigned [employer] LAURIE Rayo Advance Directives? Yes History Provided By Patient Family Member Medical Record Has Patient been admitted in last 30 No days? Prior Living Arrangements House Household Members spouse children Comment adult child/Anny Independent with ADL's Yes Is patient alert and oriented? Yes Caregiver for Another No Patient/Family Preference Home with Home Health Discharge Plan Home with Home Health Community Services Physical Therapy Occupational Therapy Social Work Whiteboard Updated in Patient Room with Yes name and ext. # of [employer] Review Status In Process Please Provide Date Initial DC 06/25/18 Assessment Was Performed
[2018-06-25] MEDS: ACETAMINOPHEN 325 MG TABLET 650 MG PO (17:07)
[2018-06-25] MEDS: ONDANSETRON 4 MG/2 ML INJ IV (18:25)
[2018-06-25] MEDS: SODIUM CHLORIDE 0.9% 1,000 ML 150 ML IV (20:41)
[2018-06-25] MEDS: ATORVASTATIN 20 MG TABLET PO (21:08)
[2018-06-25] MEDS: OLANZapine 2.5 MG TABLET PO (21:10)
[2018-06-25] MEDS: INSULIN GLARGINE 100 UNIT/ML 3ML PEN 50 UNIT SUBCUT (21:11)
[2018-06-25] MEDS: MAGNESIUM HYDROXIDE 30 ML UDC PO (21:11)
--- NOTE | 2018-06-25 21:38 | PC.NURSE ---
1824 - Dr. Lugo notified of c/o nausea as well as hx of constipation. Orders obtained. Zofran given. Pt remains drowsy. Awaits to light stimuli. 2099 - Discussed pt drowsiness. Pt states that she hasn't slept well, and that gabapentin makes her very tired. States that at home she only takes occasionally and that it is usually just at bedtime. Agreeable to hold gabapentin at this time. MS given as scheduled for complaints of generalized pain . VSS. Repositioned to adjust linen and for assessment. Call light in reach.
[2018-06-26] VITALS (16 sets, daily range): BP systolic 107–145; BP diastolic 41–73; PULSE 56–73; RESP 14–22; TEMP 36.3–37.2; O2SAT 94–97
[2018-06-26] MEDS: VANCOMYCIN 1,000 MG/200 ML FROZ.PIGGY 200 MG IV ×3 (02:17→18:46)
[2018-06-26] MEDS: MORPHINE ER 15 MG TABLET PO ×3 (03:40→20:12)
[2018-06-26] MEDS: SODIUM CHLORIDE 0.9% 1,000 ML 150 ML IV (04:23)
[2018-06-26] MEDS: HYDROCODONE/ACET 5/325 TABLET 1 TAB PO (05:11)
[2018-06-26] MEDS: LEVOTHYROXINE 112 MCG TABLET PO (05:12)
[2018-06-26] MEDS: PANTOPRAZOLE 20 MG TABLET PO (05:12)
[2018-06-26 05:20] LABS: Add Manual Diff / Slide Review NO; Basophils Percent Auto 0.3 % (0-2); Eosinophils Percent Auto 3.3 % (2-4); Hematocrit 34.6 % (36-46); Hemoglobin 11.6 g/dL (12.0-16.0); Lymphocytes Percent Auto 25.3 % (25-40); Mean Corpuscular HGB Conc 33.7 % (30-36); Mean Corpuscular Hemoglobin 29.1 PG (26-34); Mean Corpuscular Volume 86.5 fL (80-100); Monocytes Percent Auto 6.7 % (3-14); Neutrophils Absolute Auto 3300 /uL (3000-5900); Neutrophils Percent Auto 64.4 % (50-75); Platelet Count 130 X10^3/uL (150-400); Red Cell Distribution Width 13.5 % (11.6-14.8); White Blood Cell Count 5.1 X10^3/uL (4.5-11.0)
[2018-06-26 05:27] LABS: Alanine Aminotransferase 191 IU/L (9-52); Albumin 2.4 g/dL (3.5-5.0); Albumin Globulin Ratio 0.9 (1.0-2.8); Alkaline Phosphatase 85 U/L (38-126); Aspartate Aminotransferase 71 IU/L (14-36); Bilirubin Total 0.4 mg/dL (0.2-1.3); Blood Urea Nitrogen 9 mg/dL (7-17); Calcium 7.4 mg/dL (8.4-10.2); Carbon Dioxide 26 mmol/L (22-32); Chloride 106 mmol/L (98-107); Estimated Glomerular Filt Rate > 60.0 mL/min (>60); Globulin 2.6 g/dL (1.7-4.1); Glucose 125 mg/dL (80-110); HEMOLYSIS < 15 (0-50); Potassium 3.7 mmol/L (3.4-5.1); Sodium 137 mmol/L (137-145)
--- NOTE | 2018-06-26 07:07 | PC.NURSE ---
NOC Shift: Pt continues to be sleepy, wakes appropriately to confused at times. Continues to complain of severe headache, scheduled po pain meds and prn. VSS, SR tele. Levophed off yesterday, SBP stable. Afebrile thru shift. Continues to have generalized aches, pains needs to be encouraged to get up out of bed more often, wood needs to be D/C'd today to encourage mobility and for comfort. Pt complains of pressure, discomfort due to catheter even though it is patent. Taking po denies nausea this shift. Labs stable. Daughter sleeping at BS. ICU care.
[2018-06-26] MEDS: ACETAMINOPHEN 325 MG TABLET 650 MG PO (08:24)
--- NOTE | 2018-06-26 08:33 | PM.PN.1 ---
Subjective Date Patient Seen: 06/26/18 Time Patient Seen: 08:33 Interval history: She complains of nausea headache and weakness Exam Vital Signs (past 8 hours): - 06/26/18 01:00 06/26/18 02:00 06/26/18 02:04 Temperature Pulse Rate 70 67 67 Respiratory Rate 17 15 16 Blood Pressure 117/43 L 117/46 L 117/46 L Pulse Oximetry 95 96 95 06/26/18 03:00 06/26/18 04:00 06/26/18 05:00 Temperature 98.0 F Pulse Rate 68 73 72 Respiratory Rate 19 16 22 Blood Pressure 115/51 L 130/43 L 133/62 Pulse Oximetry 96 96 95 06/26/18 06:00 06/26/18 06:31 06/26/18 07:20 Temperature 97.4 F L Pulse Rate 65 63 64 Respiratory Rate 17 17 15 Blood Pressure 127/58 L 127/58 L 127/64 Pulse Oximetry 94 95 96 06/26/18 08:29 Temperature Pulse Rate 65 Respiratory Rate 20 Blood Pressure 124/60 Pulse Oximetry 95 Oxygen Delivery Method Nasal Cannula Oxygen Flow Rate 1 Narrative Exam Narrative: She is awake and alert she is conversant she appears in no acute distress she is off the Levophed Oropharynx clear low oral mucosa is dry lips were dry Neck is supple Lungs Clear to auscultation Heart regular rhythm Abdomen soft nontender Lower extremities the left lower extremity erythema much improved stasis dermatitis present Neuro exam unremarkable Skin moist and warm Objective Labs Result Diagrams: 06/26/18 05:00 06/26/18 05:00 Labs: Laboratory Results - last 24 hr 06/25/18 06/25/18 06/26/18 05:00 10:35 05:00 WBC 5.1 RBC 4.00 Hgb 11.6 L Hct 34.6 L MCV 86.5 MCH 29.1 MCHC 33.7 RDW 13.5 Plt Count 130 L Neut % (Auto) 64.4 Lymph % (Auto) 25.3 Treasure % (Auto) 6.7 Eos % (Auto) 3.3 Baso % (Auto) 0.3 Neut # (Auto) 3300 Sodium Potassium Chloride Carbon Dioxide BUN Creatinine Estimated GFR BUN/Creatinine Ratio Glucose Calcium Total Bilirubin AST ALT Alkaline Phosphatase Total Protein Albumin Globulin Albumin/Globulin Ratio Vancomycin Trough 11.4 Hepatitis C Antibody Negative 06/26/18 05:00 WBC RBC Hgb Hct MCV MCH MCHC RDW Plt Count Neut % (Auto) Lymph % (Auto) Treasure % (Auto) Eos % (Auto) Baso % (Auto) Neut # (Auto) Sodium 137 Potassium 3.7 Chloride 106 Carbon Dioxide 26 BUN 9 Creatinine 0.50 L Estimated GFR > 60.0 BUN/Creatinine Ratio 18.0 Glucose 125 H D Calcium 7.4 L Total Bilirubin 0.4 AST 71 H ALT 191 H Alkaline Phosphatase 85 Total Protein 5.0 L Albumin 2.4 L Globulin 2.6 Albumin/Globulin Ratio 0.9 L Vancomycin Trough Hepatitis C Antibody Assessment & Plan Plan: Assessment/Plan Narrative: 1.Cellulitis with severe sepsis. Hypotension has resolved she is now off Levophed plan to stop the fluids plan to continue treatment with the antibiotics. Physical therapy to consult 2. Diabetes continue monitoring blood sugar closely as needed insulin 3. History of fibromyalgia she has been on hydrocodone and gabapentin and morphine will continue her oral morphine and gabapentin for now 4. History of hypertension on lisinopril that will be held along with the furosemide while she is septic 5. Hypothyroid plan to continue current medications 6. Code status she is full code 7. Depression continue current home medications 8. Chronic narcotic use for fibromyalgia 9. Elevated liver enzymes somewhat improved. Hepatitis C antibody negative. Possibly from the sepsis but she also has some fatty liver infiltration on ultrasound
[2018-06-26] MEDS: GABAPENTIN 600 MG TABLET 1200 MG PO ×3 (08:38→20:14)
[2018-06-26] MEDS: CEVIMELINE 1 EACH PO ×3 (08:38→20:14)
[2018-06-26] MEDS: ESCITALOPRAM 10 MG TABLET 40 MG PO (08:38)
[2018-06-26] MEDS: ENOXAPARIN 40 MG/0.4 ML SYRINGE SUBCUT (08:41)
[2018-06-26] MEDS: buPROPion SR 150 MG TAB PO ×2 (08:41→20:13)
--- NOTE | 2018-06-26 10:34 | PC.NURSE ---
Pt is mostly sleeping and rating her pain at 6/10 when awake. Given tylenol for headache with some relief. Pt reports she feels too weak to walk around in room but has not attempted this activity today. Appears anxious about her condition (eg worried about low blood sugar, having a temp, generally feeling very weak without appetite) but given reassurance and advised that this was usual after having a systemic infection as she did. Daughter in room also giving reassurance. NOw floor care with IV saline locked. Cellulitus appears to be resolving no erythema reducing and well within demarkation.
--- NOTE | 2018-06-26 11:30 | PT.IIE ---
Current Diagnoses Sepsis, unspecified organism (06/24/18) Surgical History (Last Updated 06/24/18 @ 01:07 by Tarah Lowry DO) H/O total hysterectomy (Acute) Medical History (Last Updated 06/24/18 @ 06:56 by Leonid Lugo MD) Fibromyalgia (Acute) Meningioma (Acute) Restless leg syndrome (Acute) Sjogren's disease (Acute) Sleep apnea (Acute) Spinal stenosis, lumbar (Acute) Depression (Acute) Diabetes (Acute) Fibromyalgia (Acute) GERD (gastroesophageal reflux disease) (Acute) Physical Therapy Inpatient Evaluation/Re-Eval M1 PT/OT-IP Prior Functional Status Start: 06/26/18 13:01 Freq: NEEDED Status: Active Protocol: Document 06/26/18 11:30 AB (Rec: 06/26/18 13:22 AB [id number]) Medical Review Prior Functional Status Medical History Reviewed Yes Communication able to make needs known Mobility and Gait per pt's daughter: pt modified independent with mobility without AD Prior Functional Level (Other details) spouse does the house chores Social History Household Members spouse children Living Arrangements House Number of Stairs To Enter/Railing? 1 step entry; 1 step to get to rec room/laundry room Home Environment Standard Height Toilet Tub/Shower Employment Status Retired Additional Social History Comment pt sleeps on a lift chair/ recliner M2 PT-IP Current Condition Start: 06/26/18 13:01 Freq: NEEDED Status: Active Protocol: Document 06/26/18 11:30 AB (Rec: 06/26/18 13:22 AB [id number]) Physical Therapy Current Condition Current Condition Evaluation Date 06/26/18 Treatment Diagnosis sepsis; difficulty in walking Onset Date 06/24/18 M3 PT-IP Subjective Start: 06/26/18 13:01 Freq: NEEDED Status: Active Protocol: Document 06/26/18 11:30 AB (Rec: 06/26/18 13:22 AB [id number]) Subjective Physical Therapy Visit Type Type Initial Evaluation Visit Start Time 11:30 Visit Stop Time 11:53 Total Visit Minutes 23 Number of LEATHER CARTRIDGE BELT MAKER Visits 0 Physical Therapy Visit Comments Patient Comments c/o nausea and feeling sick Therapy Pain Assessment Pain When Pain Assessed At Rest Pain Present Pain Present Pain Reported Location Head Intensity 7 Scale Used c/o headache Pain Management Techniques Timing of Activity with Medications M4 PT-IP Mobility and Gait Start: 06/26/18 13:01 Freq: NEEDED Status: Active Protocol: Document 06/26/18 11:30 AB (Rec: 06/26/18 13:22 AB [id number]) PT-Bed Mobility Assessment Supine to Sit Supine to Sit Minimal Assistance PT-Transfer Assessment Sit to and From Stand Sit to and from Stand Minimal Assistance 1 Person Assistance Use of Upper Extremities Equipment Transfer Assistive Device Gait Belt Front Wheeled Walker Transfers Transfer Destination Chair Transfer Technique Stand Step Pivot Transfer Ability Level of Assist Minimal Assistance 1 Person Assistance Use of Upper Extremities Comments Mobility Comments pt agreed to stay up on chair. positioned pt with call light and table within reach. pt c/o nausea and nurse informed. BP: 127/69 Gait Assessment Gait Gait Assistance Required: Minimum Assistance Distance (Feet) 25 Able to Maintain Weight Bearing Status Yes During Gait Assistive Devices Assistive Device Gait Belt Front Wheeled Walker Orthotic/Prosthetic Devices or Brace: No Gait Deviations General Gait Pattern Decreased Stride Length Decreased Feet Clearance Factors Limiting Gait Function Factors Limiting Gait Function Decreased Activity Tolerance Decreased Strength Difficulty Following Directions Limited Range of Motion Pain Poor Balance Poor Safety Awareness Comments Gait Comments Pt with c/o headache and nausea. BP:127/69 pt also is sleepy and requires cues to keep eyes open. PT-Balance Assessment Sitting Balance and Reactions Static Sitting Balance Ability Good Dynamic Sitting Balance Ability Good Standing Balance and Reactions Static Standing Balance Ability Fair Dynamic Standing Balance Ability Fair Device Used FWW M5 PT-IP Objective Assessments Start: 06/26/18 13:01 Freq: NEEDED Status: Active Protocol: Document 06/26/18 11:30 AB (Rec: 06/26/18 13:22 AB [id number]) Orientation Orientation/Cognition Level of Alertness Lethargic Orientation Name Place Safety Awareness Decreased Safety Awareness Memory Description Short Term Impaired Form Maker Impaired Gross Range of Motion Lower Extremity ROM Assessment Within Functional Limits Strength Lower Extremity Strength Assessment Bilaterally Impaired Hip 4-/5 Knee 4-/5 Sensation Assessment Sensation Gross Sensation WNL Muscle Tone Muscle Tone WNL Yes M6 PT-IP Treatment Start: 06/26/18 13:01 Freq: NEEDED Status: Active Protocol: Document 06/26/18 11:30 AB (Rec: 06/26/18 13:22 AB [id number]) Physical Therapy Treatment Education Education Provided Safety M7 PT-IP Assessment and Plan Start: 06/26/18 13:01 Freq: NEEDED Status: Active Protocol: Document 06/26/18 11:30 AB (Rec: 06/26/18 13:22 AB [id number]) PT Summary Assessment and Plan Potential Rehabilitation Potential Fair Summary Impairments Pain ROM Strength Balance Coordination Sensation Tone Cognition Bed Mobility Transfers Gait Activity Tolerance Assessment Summary Pt requires 1 person min A with mobility but presents with decrease activity tolerance affecting mobility. d/c plan depending on progress but at this time will require SNF rehab. if going home will require 24/7 assist and homehealth PT. Goals Bed Mobility Goal Standby Assistance Transfer Goal Standby Assistance Front Wheeled Walker Gait Goal Standby Assistance Front Wheel Walker Gait Distance 150 Other Goals up/down 1 step using FWW SBA Days to Meet Goals 5 Frequency of Treatment Frequency Of Treatment Once a Day Treatment Plan Physical Therapy Treatment Plan Bed Mobility Training Transfer Training Gait Training Therapeutic Exercise Balance Retraining Post Op Education Discharge Planning Hot or Cold Pack Neuromuscular Re-ed Coordination Retraining Manual Therapy Other Recommendations and Next Treatment ambulation Focus Recommendations To Nursing Amount of Assist Needed 1 Person Assist Discharge Recommendations PT Discharge Recommendations Home with 24/7 Assist Home Health SNF Rehab Other Discharge Recommendations SNF vs home with 24/7 assist and home health PT
--- NOTE | 2018-06-26 11:30 | PT.IIE ---
Current Diagnoses Sepsis, unspecified organism (06/24/18) Surgical History (Last Updated 06/24/18 @ 01:07 by Tarah Lowry DO) H/O total hysterectomy (Acute) Medical History (Last Updated 06/24/18 @ 06:56 by Leonid Lugo MD) Fibromyalgia (Acute) Meningioma (Acute) Restless leg syndrome (Acute) Sjogren's disease (Acute) Sleep apnea (Acute) Spinal stenosis, lumbar (Acute) Depression (Acute) Diabetes (Acute) Fibromyalgia (Acute) GERD (gastroesophageal reflux disease) (Acute) Physical Therapy Inpatient Evaluation/Re-Eval M1 PT/OT-IP Prior Functional Status Start: 06/26/18 13:01 Freq: NEEDED Status: Active Protocol: Document 06/26/18 11:30 AB (Rec: 06/26/18 13:22 AB [id number]) Medical Review Prior Functional Status Medical History Reviewed Yes Communication able to make needs known Mobility and Gait per pt's daughter: pt modified independent with mobility without AD Prior Functional Level (Other details) spouse does the house chores Social History Household Members spouse children Living Arrangements House Number of Stairs To Enter/Railing? 1 step entry; 1 step to get to rec room/laundry room Home Environment Standard Height Toilet Tub/Shower Employment Status Retired Additional Social History Comment pt sleeps on a lift chair/ recliner M2 PT-IP Current Condition Start: 06/26/18 13:01 Freq: NEEDED Status: Active Protocol: Document 06/26/18 11:30 AB (Rec: 06/26/18 13:22 AB [id number]) Physical Therapy Current Condition Current Condition Evaluation Date 06/26/18 Treatment Diagnosis sepsis; difficulty in walking Onset Date 06/24/18 M3 PT-IP Subjective Start: 06/26/18 13:01 Freq: NEEDED Status: Active Protocol: Document 06/26/18 11:30 AB (Rec: 06/26/18 13:22 AB [id number]) Subjective Physical Therapy Visit Type Type Initial Evaluation Visit Start Time 11:30 Visit Stop Time 11:53 Total Visit Minutes 23 Number of FEEDER TENDER Visits 0 Physical Therapy Visit Comments Patient Comments c/o nausea and feeling sick Therapy Pain Assessment Pain When Pain Assessed At Rest Pain Present Pain Present Pain Reported Location Head Intensity 7 Scale Used c/o headache Pain Management Techniques Timing of Activity with Medications M4 PT-IP Mobility and Gait Start: 06/26/18 13:01 Freq: NEEDED Status: Active Protocol: Document 06/26/18 11:30 AB (Rec: 06/26/18 13:22 AB [id number]) PT-Bed Mobility Assessment Supine to Sit Supine to Sit Minimal Assistance PT-Transfer Assessment Sit to and From Stand Sit to and from Stand Minimal Assistance 1 Person Assistance Use of Upper Extremities Equipment Transfer Assistive Device Gait Belt Front Wheeled Walker Transfers Transfer Destination Chair Transfer Technique Stand Step Pivot Transfer Ability Level of Assist Minimal Assistance 1 Person Assistance Use of Upper Extremities Comments Mobility Comments pt agreed to stay up on chair. positioned pt with call light and table within reach. Gait Assessment Gait Gait Assistance Required: Minimum Assistance Distance (Feet) 25 Able to Maintain Weight Bearing Status Yes During Gait Assistive Devices Assistive Device Gait Belt Front Wheeled Walker Orthotic/Prosthetic Devices or Brace: No Gait Deviations General Gait Pattern Decreased Stride Length Decreased Feet Clearance Factors Limiting Gait Function Factors Limiting Gait Function Decreased Activity Tolerance Decreased Strength Difficulty Following Directions Limited Range of Motion Pain Poor Balance Poor Safety Awareness Comments Gait Comments Pt with c/o headache and nausea. BP:127/69 pt also is sleepy and requires cues to keep eyes open. PT-Balance Assessment Sitting Balance and Reactions Static Sitting Balance Ability Good Dynamic Sitting Balance Ability Good Standing Balance and Reactions Static Standing Balance Ability Fair Dynamic Standing Balance Ability Fair Device Used FWW M5 PT-IP Objective Assessments Start: 06/26/18 13:01 Freq: NEEDED Status: Active Protocol: Document 06/26/18 11:30 AB (Rec: 06/26/18 13:22 [id number]) Orientation Orientation/Cognition Level of Alertness Lethargic Orientation Name Place Safety Awareness Decreased Safety Awareness Memory Description Short Term Impaired Custodial Impaired Gross Range of Motion Lower Extremity ROM Assessment Within Functional Limits Strength Lower Extremity Strength Assessment Bilaterally Impaired Hip 4-/5 Knee 4-/5 Sensation Assessment Sensation Gross Sensation WNL Muscle Tone Muscle Tone WNL Yes M6 PT-IP Treatment Start: 06/26/18 13:01 Freq: NEEDED Status: Active Protocol: Document 06/26/18 11:30 AB (Rec: 06/26/18 13:22 AB [id number]) Physical Therapy Treatment Education Education Provided Safety M7 PT-IP Assessment and Plan Start: 06/26/18 13:01 Freq: NEEDED Status: Active Protocol: Document 06/26/18 11:30 AB (Rec: 06/26/18 13:22 AB [id number]) PT Summary Assessment and Plan Potential Rehabilitation Potential Fair Summary Impairments Pain ROM Strength Balance Coordination Sensation Tone Cognition Bed Mobility Transfers Gait Activity Tolerance Assessment Summary Pt requires 1 person min A with mobility but presents with decrease activity tolerance affecting mobility. d/c plan depending on progress but at this time will require SNF rehab. if going home will require 24/7 assist and homehealth PT. Goals Bed Mobility Goal Standby Assistance Transfer Goal Standby Assistance Front Wheeled Walker Gait Goal Standby Assistance Front Wheel Walker Gait Distance 150 Other Goals up/down 1 step using FWW SBA Days to Meet Goals 5 Frequency of Treatment Frequency Of Treatment Once a Day Treatment Plan Physical Therapy Treatment Plan Bed Mobility Training Transfer Training Gait Training Therapeutic Exercise Balance Retraining Post Op Education Discharge Planning Hot or Cold Pack Neuromuscular Re-ed Coordination Retraining Manual Therapy Other Recommendations and Next Treatment ambulation Focus Recommendations To Nursing Amount of Assist Needed 1 Person Assist Discharge Recommendations PT Discharge Recommendations Home with 24/7 Assist Home Health SNF Rehab Other Discharge Recommendations SNF vs home with 24/7 assist and home health PT
[2018-06-26] MEDS: ONDANSETRON 4 MG/2 ML INJ IV ×2 (12:03→20:24)
--- NOTE | 2018-06-26 15:02 | PC.NURSE ---
Pt has passed urine since wood removed. 100 cc. Needs encouragement to take in fluids.
[2018-06-26] MEDS: BISACODYL 10 MG SUPP PR (16:45)
--- NOTE | 2018-06-26 18:10 | PC.NURSE ---
carlie note Pt c/o feeling weak. Assisted pt up to [facility]. Pt had a few hard pellets of stool. Pt requested a suppository which was given. Suppository expelled almost immediately, so 2nd suppository inserted. Large amount of pellets felt in anal vault. pt c/o nausea when sitting up. Pt ate a few bites of apple sauce, but pt says everything tastes bad, even yahaira armani. Pt steady on feet when transferring from bed to [facility]. LLE thomas is mildly red, not hot, with scaly flakes of skin and one scab on mid thomas.
--- NOTE | 2018-06-26 18:54 | PC.NURSE ---
Pt to room 205 from ICU. Toileted by TELEPHONE SOLICITOR SUPERVISOR who reports pt had formed stool. Now resting quietly in bed with iv vancomycin infusing via right upper arm dual picc. Denies concerns or complaints.
[2018-06-26] MEDS: ATORVASTATIN 20 MG TABLET PO (20:13)
[2018-06-26] MEDS: OLANZapine 2.5 MG TABLET PO (20:16)
[2018-06-26] MEDS: INSULIN GLARGINE 100 UNIT/ML 3ML PEN 50 UNIT SUBCUT (20:18)
[2018-06-26] MEDS: SODIUM CHLORIDE 0.9% FLUSH 10 ML IV (20:24)
--- NOTE | 2018-06-26 23:11 | PC.NURSE ---
Pt states desires only 40 units Lantus insulin versus 50 units ordered. Blood glucose 121. Zofran administered for nausea following vancomycin infusion. Daughter is present and rooming in overnight.
[2018-06-27] MEDS: VANCOMYCIN 1,000 MG/200 ML FROZ.PIGGY 200 MG IV ×2 (01:59→09:16)
[2018-06-27 03:47] VITALS: BP 128/55; PULSE 70; RESP 16; TEMP 36.8; O2SAT 97
[2018-06-27] MEDS: MORPHINE ER 15 MG TABLET PO ×2 (04:13→12:08)
[2018-06-27] MEDS: LEVOTHYROXINE 112 MCG TABLET PO (06:02)
[2018-06-27] MEDS: PANTOPRAZOLE 20 MG TABLET PO (06:02)
[2018-06-27] MEDS: ACETAMINOPHEN 325 MG TABLET 650 MG PO (06:03)
[2018-06-27 07:35] VITALS: BP 121/55; PULSE 63; RESP 18; TEMP 36.9; O2SAT 94
[2018-06-27] MEDS: ENOXAPARIN 40 MG/0.4 ML SYRINGE SUBCUT (09:09)
[2018-06-27] MEDS: ESCITALOPRAM 10 MG TABLET 40 MG PO (09:10)
[2018-06-27] MEDS: CEVIMELINE 1 EACH PO ×2 (09:11→13:37)
[2018-06-27] MEDS: buPROPion SR 150 MG TAB PO (09:11)
[2018-06-27] MEDS: GABAPENTIN 600 MG TABLET 1200 MG PO (09:11)
[2018-06-27] MEDS: SODIUM CHLORIDE 0.9% FLUSH 10 ML IV (09:14)
[2018-06-27] MEDS: BISACODYL 10 MG SUPP PR (10:22)
--- NOTE | 2018-06-27 12:00 | PT.IPTN ---
Current Diagnoses Sepsis, unspecified organism (06/24/18) Physical Therapy Treatment Note M2 PT-IP Current Condition Start: 06/26/18 13:01 Freq: NEEDED Status: Active Protocol: Document 06/26/18 11:30 AB (Rec: 06/26/18 13:22 AB [id number]) Physical Therapy Current Condition Current Condition Evaluation Date 06/26/18 Treatment Diagnosis sepsis; difficulty in walking Onset Date 06/24/18 M3 PT-IP Subjective Start: 06/26/18 13:01 Freq: NEEDED Status: Active Protocol: Document 06/27/18 11:58 CLB (Rec: 06/27/18 12:00 CLB [id number]) Subjective Physical Therapy Visit Type Type Patient Unavailable Notes Checked on pt twice this morning, pt nauseous and wanted to wait until this afternoon. Will check with pt later today.
[2018-06-27] MEDS: FUROSEMIDE 40 MG/4 ML VIAL IV (13:36)
[2018-06-27] MEDS: POTASSIUM CHLORIDE 20 MEQ/15 ML UDC PO (13:36)
--- NOTE | 2018-06-27 13:37 | CM.DPC ---
DCP Discharge Home Per MD, pt is medically stable to d/c home with family today and no identified barriers to discharge. Per RN, plan is for family to car pick up driver pt this evening around 1700. SW met bedside with pt and Dtr, who was just leaving for work, and explained role and they confirmed they are agreeable with d/c plan for today. SW provided the resources left by previous SW for grief support, transportation, etc.. and Dtr was very appreciative. SW provided pt's Medicare Message and pt acknowledged understanding and gave verbal signature. Plan: Patient to d/c home today via family POV around 1700. LAURIE Reyna
[2018-06-27 14:45] VITALS: BP 136/58; PULSE 63; RESP 18; TEMP 36.7; O2SAT 94
--- NOTE | 2018-06-27 15:21 | PT.IPTN ---
Current Diagnoses Sepsis, unspecified organism (06/24/18) Physical Therapy Treatment Note M2 PT-IP Current Condition Start: 06/26/18 13:01 Freq: NEEDED Status: Active Protocol: Document 06/26/18 11:30 AB (Rec: 06/26/18 13:22 AB [id number]) Physical Therapy Current Condition Current Condition Evaluation Date 06/26/18 Treatment Diagnosis sepsis; difficulty in walking Onset Date 06/24/18 M3 PT-IP Subjective Start: 06/26/18 13:01 Freq: NEEDED Status: Active Protocol: Document 06/27/18 13:40 CLB (Rec: 06/27/18 15:21 CLB [id number]) Subjective Physical Therapy Visit Type Type Treatment Note Visit Start Time 13:40 Visit Stop Time 14:05 Total Visit Minutes 25 Number of ARTIFICIAL GLASS EYE MAKER Visits 1 Physical Therapy Visit Comments Patient Comments Pt c/o headache Therapy Pain Assessment Pain When Pain Assessed At Rest Pain Present Pain Present Denied Pain M4 PT-IP Mobility and Gait Start: 06/26/18 13:01 Freq: NEEDED Status: Active Protocol: Document 06/27/18 13:40 CLB (Rec: 06/27/18 15:21 CLB [id number]) PT-Bed Mobility Assessment Supine to Sit Supine to Sit Standby Assistance Sit to Supine Sit to Supine Standby Assistance Scooting Scooting to Edge of Bed Standby Assistance Scooting Up and Down in Bed Standby Assistance PT-Transfer Assessment Sit to and From Stand Sit to and from Stand Standby Assistance Equipment Transfer Assistive Device Gait Belt Front Wheeled Walker Transfers Transfer Destination Bed Transfer Ability Level of Assist Standby Assistance Comments Mobility Comments Pt improving with all mobility . Gait Assessment Gait Gait Assistance Required: Contact Guard Assist Distance (Feet) 50 Able to Maintain Weight Bearing Status Yes During Gait Assistive Devices Assistive Device Gait Belt Front Wheeled Walker Orthotic/Prosthetic Devices or Brace: No Gait Deviations General Gait Pattern Decreased Stride Length Decreased Feet Clearance Factors Limiting Gait Function Factors Limiting Gait Function Decreased Activity Tolerance Decreased Strength Limited Range of Motion Comments Gait Comments Pt improving with gait distance. Pt stood at sink to wash hands w/o LOB. Stair Climbing Assessment Evaluation Level of Assist On Stairs Contact Guard Assistance Devices Stair Climbing Assistive Devices Front Wheel Walker Technique/Endurance Stair Climbing Direction Ascend and Descend Stair Climbing Technique Step to Step Number of Steps Climbed 1 Query Text: Stair Climbing Set # Repetitions (reps) 2 Comments Stair Climbing Comments Pt successfully trialed staits CGA w/FWW. M5 PT-IP Objective Assessments Start: 06/26/18 13:01 Freq: NEEDED Status: Active Protocol: Document 06/26/18 11:30 AB (Rec: 06/26/18 13:22 AB [id number]) Orientation Orientation/Cognition Level of Alertness Lethargic Orientation Name Place Safety Awareness Decreased Safety Awareness Memory Description Short Term Impaired Head Of Advertising Impaired Gross Range of Motion Lower Extremity ROM Assessment Within Functional Limits Strength Lower Extremity Strength Assessment Bilaterally Impaired Hip 4-/5 Knee 4-/5 Sensation Assessment Sensation Gross Sensation WNL Muscle Tone Muscle Tone WNL Yes M6 PT-IP Treatment Start: 06/26/18 13:01 Freq: NEEDED Status: Active Protocol: Document 06/26/18 11:30 AB (Rec: 06/26/18 13:22 AB [id number]) Physical Therapy Treatment Education Education Provided Safety M7 PT-IP Assessment and Plan Start: 06/26/18 13:01 Freq: NEEDED Status: Active Protocol: Document 06/27/18 13:40 CLB (Rec: 06/27/18 15:21 CLB [id number]) PT Summary Assessment and Plan Summary Assessment Summary Pt improved with all mobility and gait. Pt able to trial stairs successfully w/FWW and CGA. Goals Bed Mobility Goal Standby Assistance Transfer Goal Standby Assistance Front Wheeled Walker Gait Goal Standby Assistance Front Wheel Walker Gait Distance 150 Other Goals up/down 1 step using FWW SBA Days to Meet Goals 5 Frequency of Treatment Frequency Of Treatment Once a Day Treatment Plan Physical Therapy Treatment Plan Bed Mobility Training Transfer Training Gait Training Therapeutic Exercise Balance Retraining Post Op Education Discharge Planning Hot or Cold Pack Neuromuscular Re-ed Coordination Retraining Manual Therapy Other Recommendations and Next Treatment ambulation Focus Recommendations To Nursing Amount of Assist Needed Standby Assistance Discharge Recommendations PT Discharge Recommendations Home with 24/7 Assist Home Health Other Discharge Recommendations SNF vs home with 24/7 assist and home health PT
[2018-06-27 15:59] VITALS: BP 138/64; PULSE 68; RESP 20; TEMP 36.6
--- NOTE | 2018-06-27 17:13 | PC.NURSE ---
Discharge instructions given to pt in written and verbal format. Pt has valuables in possession and left hospital via wheelchair with DUCT MAKER escort accompanied by extended family in stable condition. PICC line pulled by Zully castaneda RN. Dressing dry and intact to RUE.
--- NOTE | 2018-06-27 18:01 | P.DS_ITS ---
History of Present Illness Chief complaint: Low Blood Sugar Narrative: 67-year-old female presents with nausea fever and low blood sugars feeling lousy. She was seen by Karmen at the clinic in [place] on Thursday diagnosed with cellulitis started on some Bactrim. The patient had been treated for cellulitis in her left lower extremity a stumble of weeks ago and at that time she had a shallow ulcer on her left lower extremity that had some yellow-green drainage she was on antibiotics for a week at that time of Bactrim and these redness and swelling at that time improved she was seen in the ER on June 10 for viral respiratory infection at that time the leg reportedly looked good O but over the last several days the redness swelling and pain in the left lower extremity return and she was seen in the clinic on Thursday prescribed some Bactrim again and at that time her blood pressure was fine a blood sugar was fine when she got home however 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 Discharge Providers Date of admission: 06/24/18 02:18 Primary care physician: Karmen Avalos PA-C Consults: 06/26/18 08:31 Consult to Physical Therapy Evaluate & Treat Comment: weak Physician Instructions: Evaluate and Treat Discharge provider: William Gong MD Discharge Date: 06/27/18 Summary Discharge Diagnosis: 1. Left lower extremity cellulitis 2. Shock with severe sepsis, secondary to #1 3. Type 2 diabetes with hypoglycemia secondary to insulin 4. Chronic venous stasis of left lower extremity 5. Opioid dependence secondary to fibromyalgia diagnosis 6. Transaminitis, negative hepatitis-C antibody 7. Fatty liver disease on abdominal ultrasound 8. Volume overload due to fluid resuscitation for sepsis Hospital Course: Patient was admitted due to left lower extremity cellulitis associated with chronic venous stasis. She was started on IV vancomycin. Following admission blood pressure dropped with systolic in the 70s and she was moved to the ICU and started on Levophed. Sepsis state resolved with continued antibiotic and volume resuscitation. Blood cultures were negative. Appearance of left leg cellulitis is clearly improving but she does have significant chronic venous stasis inflammatory changes and scabs which likely need to be debrided. Also she had some issues with hypoglycemia which apparently has been occurring as outpatient. Patient is instructed to lower her Lantus by 3 or 4 units at a time if getting continued low blood sugar readings. Patient was noted to have elevation of liver enzymes with fatty liver on ultrasound. Hepatitis C antibody testing negative. Possibly liver enzymes were elevated as well due to sepsis. In terms of discharge, she is clinically stable, afebrile with improvement in cellulitis. She is being discharged on double strength Bactrim. She is advised to schedule appointment at [facility] to address the chronic stasis changes and need for debridement. Patient was noted to be volume overloaded with puffy upper extremities prior to discharge. She is up around 4.5 L in her fluid balance. She received 40 mg IV Lasix prior to discharge and advised to continue on her oral Lasix until she sees her PCP Karmen Avalos. The oral Lasix was recently started as an outpatient for her venous stasis. Status at Discharge Functional status at discharge: independent ambulation Time Spent with Patient Greater than 30 minutes Exam Vital Signs (past 8 hours): - 06/27/18 14:45 06/27/18 15:59 Temperature 98.0 F 97.9 F Pulse Rate 63 68 Respiratory Rate 18 20 Blood Pressure 136/58 L 138/64 Pulse Oximetry 94 Oxygen Delivery Method Room Air Oxygen Flow Rate 0 Objective Labs Result Diagrams: 06/26/18 05:00 06/26/18 05:00 Discharge Plan Discharge Plan Patient Disposition: Home Discharge Med Rec/Prescriptions Prescriptions: New sulfamethoxazole-trimethoprim [Bactrim DS] 800-160 mg tablet 1 tab PO BID Qty: 14 RF: 0 ondansetron HCl 4 mg tablet 4 mg PO TID PRN (Reason: nausea and vomiting) 5 Days Qty: 15 RF: 0 Continue morphine 15 MG tablet 15 mg PO Q8H Qty: 0 RF: 0 multivitamin Tablet 1 tab PO DAILY Qty: 0 RF: 0 cholecalciferol (vitamin D3) [Vitamin D3] 1,000 unit Tablet 1,000 unit PO DAILY Qty: 0 RF: 0 atorvastatin 20 mg Tablet 20 mg PO DAILY Qty: 0 RF: 0 levothyroxine 112 mcg Capsule 112 mcg PO DAILY Qty: 0 RF: 0 bupropion HCl 150 mg Tablet Sustained-Release 12 Hr 150 mg PO BID Qty: 0 RF: 0 olanzapine 2.5 mg Tablet 2.5 mg PO BEDTIME Qty: 0 RF: 0 omeprazole 20 mg Capsule,Delayed Release(Dr/Ec) 20 mg PO Q DAY Qty: 0 RF: 0 escitalopram oxalate [Lexapro] 20 mg Tablet 2 tab PO DAILY Qty: 0 RF: 0 cyclobenzaprine 10 mg Tablet 0.5 - 1 tab PO TID PRN (Reason: Muscle Spasm) RF: 0 cevimeline 30 mg Capsule 1 cap PO TID RF: 0 furosemide 20 mg Tablet 1 tab PO DAILY PRN (Reason: edema) RF: 0 lisinopril 2.5 mg Tablet 2.5 mg PO DAILY RF: 0 insulin aspart U-100 [Novolog Flexpen U-100 Insulin] 100 unit/mL Insulin Pen 4 - 6 unit SUBCUT AC RF: 0 hydrocodone-acetaminophen 5-325 mg Tablet 1 tab PO TID Qty: 0 RF: 0 Changed insulin glargine [Lantus Solostar U-100 Insulin] 100 unit/mL (3 mL) Insulin Pen 50 unit SUBCUT BEDTIME Qty: 0 RF: 0 gabapentin 600 mg Tablet 1,200 mg PO BEDTIME Qty: 0 RF: 0 Follow up/Referrals: Sergey Costa MD [Physician] - Karmen Avalos PA-C [Primary Care Provider] - Provider Discharge Instructions Diet: Regular Visit Report/Discharge Packet Instructions: DI for Cellulitis -- Adult Visit Report Forms: Stroke Signs & Symptoms Discharge Data Primary Care Provider: Karmen Avalos Attending Provider: Leonid Lugo Admit Date/Time: 06/24/18 02:18 Discharges patient from system. Discharge Date/Time: 06/27/18 17:12
== END 2018-06-27 17:12 | disposition home or self-care (01) | DRG 871 ==
LOC: ED 02:11 → AC 02:24 → ICU 07:18 → AC 06-27 12:23 → ICU 06-03 15:42
PROVIDERS: Admitting Provider Internal Medicine; Emergency Provider Emergency Medicine; Family Provider Physician Assistant; PCP Physician Assistant; Visit Provider Internal Medicine
DX: A41.9 Sepsis, unspecified organism (principal); R65.21 Severe sepsis with septic shock; L03.116 Cellulitis of left lower limb; F11.20 Opioid dependence, uncomplicated; M79.7 Fibromyalgia; E11.9 Type 2 diabetes mellitus without complications; K21.9 Gastro-esophageal reflux disease without esophagitis; F17.210 Nicotine dependence, cigarettes, uncomplicated; Z97.4 Presence of external hearing-aid; I10 Essential (primary) hypertension; E03.9 Hypothyroidism, unspecified; F32.9 Major depressive disorder, single episode, unspecified; I87.8 Other specified disorders of veins; E87.70 Fluid overload, unspecified
CPT/HCPCS: 36415; 36569; 36592; 71045; 74018; 76700; 80053; 80202; 81001; 82962; 83605; 83690; 84145; 85025; 85610; 85730; 86803; 87040; 87797; 93005; 94762; 96361; 96365; 96374; 97116; 97162; 97530; 99283; 99285; C9113; J1650; J1940; J2060; J2270; J2405; J3370

== ENCOUNTER 2018-06-27 21:17 | Emergency (ER) | payer OTHER, SELFPAY ==
[2018-06-24 16:22] VITALS: BMI 35.2
[2018-06-27 21:29] VITALS: BP 145/51; PULSE 90; RESP 16; TEMP 36.5; O2SAT 95; BMI 34.7
--- NOTE | 2018-06-27 21:31 | ED.WOUNDLAC ---
HPI - Wound/Laceration <KENYA Parmar - Last Filed: 06/27/18 21:54> General Chief Complaint: Recheck/Abnormal Lab/Rx Stated Complaint: Could not fill Antibiotics Time Seen by Provider: 06/27/18 21:30 Source: patient Mode of arrival: ambulatory Limitations: no limitations History of Present Illness HPI narrative: 67-year-old female with history of fibromyalgia is an everyday smoker here for complaint of eating to have antibiotics. She was recently released from the hospital today due to sepsis secondary to cellulitis to her left lower extremity. Antibiotics were sent to [facility] earlier today for her to pickle maker Septra. She states that she went to [facility] and [facility] said they did not have the prescription then [facility] close she was not able to fill her prescription today. She also had a prescription of Zofran that was prescribed to help with any nausea vomiting this was also not able to be filled. She denies any worsening symptoms of swelling or redness to her left lower extremity. She states that she will be able to pickle maker prescriptions Tomorrow. she has follow-up appointments with her primary care in the next few days. Related Data Home Medications Medication Instructions Recorded Confirmed atorvastatin 20 mg PO DAILY #0 03/16/10 06/24/18 bupropion HCl 150 mg PO BID #0 03/16/10 06/24/18 cholecalciferol (vitamin D3) 1,000 unit PO DAILY #0 03/16/10 06/24/18 [Vitamin D3] escitalopram oxalate [Lexapro] 2 tab PO DAILY #0 03/16/10 06/24/18 levothyroxine 112 mcg PO DAILY #0 03/16/10 06/24/18 morphine 15 mg PO Q8H #0 03/16/10 06/24/18 multivitamin 1 tab PO DAILY #0 03/16/10 06/24/18 olanzapine 2.5 mg PO BEDTIME #0 03/16/10 06/24/18 omeprazole 20 mg PO Q DAY #0 03/16/10 06/24/18 cevimeline 1 cap PO TID 06/24/18 06/24/18 cyclobenzaprine 0.5 - 1 tab PO TID PRN 06/24/18 06/24/18 furosemide 1 tab PO DAILY PRN 06/24/18 06/24/18 insulin aspart U-100 [Novolog 4 - 6 unit SUBCUT AC 06/24/18 06/24/18 Flexpen U-100 Insulin] lisinopril 2.5 mg PO DAILY 06/24/18 06/24/18 Previous Rx's Medication Instructions Recorded gabapentin 1,200 mg PO BEDTIME #0 tab 06/27/18 hydrocodone-acetaminophen 1 tab PO TID #0 tab 06/27/18 insulin glargine [Lantus Solostar 50 unit SUBCUT BEDTIME #0 ml 06/27/18 U-100 Insulin] ondansetron 4 mg PO TID PRN #10 tab 06/27/18 ondansetron HCl 4 mg PO TID PRN 5 Days #15 tab 06/27/18 sulfamethoxazole-trimethoprim 1 tab PO BID #14 tab 06/27/18 [Bactrim DS] Allergies Allergy/AdvReac Type Severity Reaction Status Date / Time No Known Drug Allergies Allergy Verified 06/24/18 00:29 Review of Systems <KENYA Parmar - Last Filed: 06/27/18 21:54> Review of Systems All systems reviewed & are unremarkable except as noted in HPI and below Constitutional Denies chills, Denies fever(s), Denies lethargy and Denies weakness Eyes Denies change in vision, Denies eye discharge, Denies irritation and Denies loss of vision ENT Ears, Nose, Mouth, and Throat: Denies change in voice, Denies neck pain and Denies sore throat Cardiovascular Denies chest pain, Denies irregular heart rhythm, Denies lightheadedness, Denies palpitations, Denies dyspnea, Denies dyspnea on exertion and Denies orthopnea Respiratory Denies cough, Denies dyspnea, Denies dyspnea on exertion and Denies wheezing Gastrointestinal Gastrointestinal: Denies abdominal pain, Denies change in bowel habits, Denies diarrhea, Denies nausea and Denies vomiting Genitourinary Denies hematuria, Denies flank pain, Denies urinary incontinence and Denies urinary urgency Musculoskeletal Denies neck pain Comments: Swelling and redness to left lower extremity better after admission for IV antibiotics Integumentary/Breasts Denies pruritus, Denies erythema, Denies rash and Denies wounds Neurologic Denies confusion, Denies loss of vision and Denies weakness Psychiatric Denies anxiety, Denies confusion, Denies depression, Denies homicidal ideation and Denies suicidal ideation Endocrine Denies palpitations Hematologic/Lymphatic Denies easy bruising Allergic/Immunologic Denies wheezing Exam <KENYA Parmar - Last Filed: 06/27/18 21:54> Initial Vital Signs Initial Vital Signs: Vital Signs Temperature 97.7 F 06/27/18 21:29 Pulse Rate 90 06/27/18 21:29 Respiratory Rate 16 06/27/18 21:29 Blood Pressure 145/51 H 06/27/18 21:29 Pulse Oximetry 95 06/27/18 21:29 Const General: cooperative and well developed Nutritional Appearance: well nourished Orientation: alert, awake, oriented x3 and not confused HENNE Mouth: oral mucosae normal and moist mucous membranes Eyes Conjunctivae: conjunctivae normal Sclera: sclerae normal Pupils: PERRL EOM: EOM intact bilaterally Resp Effort & Inspection: normal respiratory effort, able to speak in complete sentences, no respiratory distress and no use of accessory muscles Auscultation: clear to auscultation bilaterally, no rales, no rhonchi and no wheezes Cardio Rate: regular rate Rhythm: regular rhythm Heart Sounds: no click, no gallops, no murmurs and no rubs Pulses: normal peripheral pulses Skin General: no rashes or lesions noted, No jaundice and No petechiae Neuro General: alert, oriented x3, gait normal and no focal motor deficits Speech: speech normal Extrem Other: left lower extremity with +2 edema and slight erythema to the left lower extremity. Patient states this is improved greatly after admission and IV antibiotics. Distal sensation is intact. Distal cap refill less than 2 sec. Full range of motion distally. <Tarah Lowry DO - Last Filed: 06/27/18 22:47> Initial Vital Signs Initial Vital Signs: Vital Signs Temperature 97.7 F 06/27/18 21:29 Pulse Rate 90 06/27/18 21:29 Respiratory Rate 16 06/27/18 21:29 Blood Pressure 145/51 H 06/27/18 21:29 Pulse Oximetry 95 06/27/18 21:29 Course <KENYA Parmar - Last Filed: 06/27/18 21:54> Orders Ordered: Discontinued Medications Ondansetron HCl (Zofran Odt Prepack) 1 bottle MISC SEEINSTR ONE Stop: 06/27/18 21:41 Last Admin: 06/27/18 21:57 Dose: 1 bottle Trimethoprim/Sulfamethoxazole (Bactrim Ds) 1 tab PO NOW ONE Stop: 06/27/18 21:40 Last Admin: 06/27/18 21:57 Dose: 1 tab Vital Signs - 8 hr 06/27/18 21:29 06/27/18 22:10 Temperature 97.7 F Pulse Rate 90 62 Respiratory Rate 16 18 Blood Pressure 145/51 H 144/58 H Pulse Oximetry 95 98 <Tarah Lowry DO - Last Filed: 06/27/18 22:47> Orders Ordered: Discontinued Medications Ondansetron HCl (Zofran Odt Prepack) 1 bottle MISC SEEINSTR ONE Stop: 06/27/18 21:41 Last Admin: 06/27/18 21:57 Dose: 1 bottle Trimethoprim/Sulfamethoxazole (Bactrim Ds) 1 tab PO NOW ONE Stop: 06/27/18 21:40 Last Admin: 06/27/18 21:57 Dose: 1 tab Vital Signs - 8 hr 06/27/18 21:29 06/27/18 22:10 Temperature 97.7 F Pulse Rate 90 62 Respiratory Rate 16 18 Blood Pressure 145/51 H 144/58 H Pulse Oximetry 95 98 MDM - Wound/Laceration <KENYA Parmar - Last Filed: 06/27/18 21:54> MDM Narrative Medical decision making narrative: Patient was provided with evening dose of her Septra along with a dose pack to take home of her Zofran. Written prescription for 7 days of the septum was provided For her to fill tomorrow. Prescription from today was canceled to prevent confusion. follow up with primary care provider the next few days for re-evaluation. For any worsening symptoms return to the emergency room. Discharge Plan Departure Patient Disposition: Home Clinical Impression: Cellulitis of leg Discharge Date/Time: 06/27/18 22:11 Interventions: ED Discharge Assessment Last Done: 06/27/18 22:10 Instructions: DI for Cellulitis -- Adult Activity Restrictions/Additional Instructions: dose of septal was given tonight in the emergency room. Written prescription of the antibiotic is provided to be filled tomorrow for subsequent dosing. Prescription for Zofran is also provided to use as directed. Follow up with her primary care provider next couple days for re-evaluation. For any worsening symptoms return to the emergency room. Prescriptions: New ondansetron 4 mg tablet,disintegrating 4 mg PO TID PRN (Reason: nausea and vomiting) Qty: 10 RF: 0 sulfamethoxazole-trimethoprim [Bactrim DS] 800-160 mg tablet 1 tab PO BID Qty: 14 RF: 0 Discontinued sulfamethoxazole-trimethoprim [Bactrim DS] 800-160 mg tablet 1 tab PO BID Qty: 14 RF: 0 No Action morphine 15 MG tablet 15 mg PO Q8H Qty: 0 RF: 0 multivitamin Tablet 1 tab PO DAILY Qty: 0 RF: 0 cholecalciferol (vitamin D3) [Vitamin D3] 1,000 unit Tablet 1,000 unit PO DAILY Qty: 0 RF: 0 atorvastatin 20 mg Tablet 20 mg PO DAILY Qty: 0 RF: 0 levothyroxine 112 mcg Capsule 112 mcg PO DAILY Qty: 0 RF: 0 bupropion HCl 150 mg Tablet Sustained-Release 12 Hr 150 mg PO BID Qty: 0 RF: 0 olanzapine 2.5 mg Tablet 2.5 mg PO BEDTIME Qty: 0 RF: 0 omeprazole 20 mg Capsule,Delayed Release(Dr/Ec) 20 mg PO Q DAY Qty: 0 RF: 0 escitalopram oxalate [Lexapro] 20 mg Tablet 2 tab PO DAILY Qty: 0 RF: 0 cyclobenzaprine 10 mg Tablet 0.5 - 1 tab PO TID PRN (Reason: Muscle Spasm) RF: 0 cevimeline 30 mg Capsule 1 cap PO TID RF: 0 furosemide 20 mg Tablet 1 tab PO DAILY PRN (Reason: edema) RF: 0 lisinopril 2.5 mg Tablet 2.5 mg PO DAILY RF: 0 insulin aspart U-100 [Novolog Flexpen U-100 Insulin] 100 unit/mL Insulin Pen 4 - 6 unit SUBCUT AC RF: 0 hydrocodone-acetaminophen 5-325 mg Tablet 1 tab PO TID Qty: 0 RF: 0 insulin glargine [Lantus Solostar U-100 Insulin] 100 unit/mL (3 mL) Insulin Pen 50 unit SUBCUT BEDTIME Qty: 0 RF: 0 gabapentin 600 mg Tablet 1,200 mg PO BEDTIME Qty: 0 RF: 0 ondansetron HCl 4 mg tablet 4 mg PO TID PRN (Reason: nausea and vomiting) 5 Days Qty: 15 RF: 0 Referrals: Karmen Avalos PA-C [Primary Care Provider] - <Tarah Lowry DO - Last Filed: 06/27/18 22:47> Cosign ED Attending Cosignature Attestation: I was immediately available in the department for consultation. This documentation has been reviewed and I agree with assessment and plan. Supervised by Tarah Lowry DO
[2018-06-27] MEDS: TRIMETH/SULFA 160/800 (DS) TABLET 1 TAB PO (21:57)
[2018-06-27] MEDS: ONDANSETRON 4 MG ODT PREPACK 1 BOTTLE MISC (21:57)
[2018-06-27 22:10] VITALS: BP 144/58; PULSE 62; RESP 18; O2SAT 98
--- NOTE | 2018-06-27 23:54 | ED_ITS ---
HPI - Allergic Reaction General Chief complaint: Recheck/Abnormal Lab/Rx Stated complaint: Could not fill Antibiotics Time Seen by Provider: 06/27/18 21:30 Source: patient Mode of arrival: ambulatory Limitations: no limitations Related Data Home Medications Medication Instructions Recorded Confirmed atorvastatin 20 mg PO DAILY #0 03/16/10 06/24/18 bupropion HCl 150 mg PO BID #0 03/16/10 06/24/18 cholecalciferol (vitamin D3) 1,000 unit PO DAILY #0 03/16/10 06/24/18 [Vitamin D3] escitalopram oxalate [Lexapro] 2 tab PO DAILY #0 03/16/10 06/24/18 levothyroxine 112 mcg PO DAILY #0 03/16/10 06/24/18 morphine 15 mg PO Q8H #0 03/16/10 06/24/18 multivitamin 1 tab PO DAILY #0 03/16/10 06/24/18 olanzapine 2.5 mg PO BEDTIME #0 03/16/10 06/24/18 omeprazole 20 mg PO Q DAY #0 03/16/10 06/24/18 cevimeline 1 cap PO TID 06/24/18 06/24/18 cyclobenzaprine 0.5 - 1 tab PO TID PRN 06/24/18 06/24/18 furosemide 1 tab PO DAILY PRN 06/24/18 06/24/18 insulin aspart U-100 [Novolog 4 - 6 unit SUBCUT AC 06/24/18 06/24/18 Flexpen U-100 Insulin] lisinopril 2.5 mg PO DAILY 06/24/18 06/24/18 Previous Rx's Medication Instructions Recorded gabapentin 1,200 mg PO BEDTIME #0 tab 06/27/18 hydrocodone-acetaminophen 1 tab PO TID #0 tab 06/27/18 insulin glargine [Lantus Solostar 50 unit SUBCUT BEDTIME #0 ml 06/27/18 U-100 Insulin] ondansetron 4 mg PO TID PRN #10 tab 06/27/18 ondansetron HCl 4 mg PO TID PRN 5 Days #15 tab 06/27/18 sulfamethoxazole-trimethoprim 1 tab PO BID #14 tab 06/27/18 [Bactrim DS] Allergies Allergy/AdvReac Type Severity Reaction Status Date / Time No Known Drug Allergies Allergy Verified 06/24/18 00:29 Review of Systems Constitutional Denies weakness Eyes Denies loss of vision Neurologic Denies confusion, Denies loss of vision and Denies weakness Psychiatric Denies confusion [facility] Medical History Depression (Acute) Diabetes (Acute) Fibromyalgia (Acute) Fibromyalgia (Acute) GERD (gastroesophageal reflux disease) (Acute) Meningioma (Acute) Restless leg syndrome (Acute) Sjogren's disease (Acute) Sleep apnea (Acute) Spinal stenosis, lumbar (Acute) Surgical History H/O total hysterectomy (Acute) Social History household members: spouse and children Smoking Status: Current every day smoker Exam Initial Vital Signs Initial Vital Signs: Vital Signs Temperature 97.7 F 06/27/18 21:29 Pulse Rate 90 06/27/18 21:29 Respiratory Rate 16 06/27/18 21:29 Blood Pressure 145/51 H 06/27/18 21:29 Pulse Oximetry 95 06/27/18 21:29 Course Orders Ordered: Discontinued Medications Ondansetron HCl (Zofran Odt Prepack) 1 bottle MISC SEEINSTR ONE Stop: 06/27/18 21:41 Last Admin: 06/27/18 21:57 Dose: 1 bottle Trimethoprim/Sulfamethoxazole (Bactrim Ds) 1 tab PO NOW ONE Stop: 06/27/18 21:40 Last Admin: 06/27/18 21:57 Dose: 1 tab Vital Signs - 8 hr 06/27/18 21:29 06/27/18 22:10 Temperature 97.7 F Pulse Rate 90 62 Respiratory Rate 16 18 Blood Pressure 145/51 H 144/58 H Pulse Oximetry 95 98 Discharge Plan Departure Patient Disposition: Home Clinical Impression: Cellulitis of leg Discharge Date/Time: 06/27/18 22:11 Interventions: ED Discharge Assessment Last Done: 06/27/18 22:10 Instructions: DI for Cellulitis -- Adult Activity Restrictions/Additional Instructions: dose of septal was given tonight in the emergency room. Written prescription of the antibiotic is provided to be filled tomorrow for subsequent dosing. Prescription for Zofran is also provided to use as directed. Follow up with her primary care provider next couple days for re-evaluation. For any worsening symptoms return to the emergency room. Prescriptions: New ondansetron 4 mg tablet,disintegrating 4 mg PO TID PRN (Reason: nausea and vomiting) Qty: 10 RF: 0 sulfamethoxazole-trimethoprim [Bactrim DS] 800-160 mg tablet 1 tab PO BID Qty: 14 RF: 0 Discontinued sulfamethoxazole-trimethoprim [Bactrim DS] 800-160 mg tablet 1 tab PO BID Qty: 14 RF: 0 No Action morphine 15 MG tablet 15 mg PO Q8H Qty: 0 RF: 0 multivitamin Tablet 1 tab PO DAILY Qty: 0 RF: 0 cholecalciferol (vitamin D3) [Vitamin D3] 1,000 unit Tablet 1,000 unit PO DAILY Qty: 0 RF: 0 atorvastatin 20 mg Tablet 20 mg PO DAILY Qty: 0 RF: 0 levothyroxine 112 mcg Capsule 112 mcg PO DAILY Qty: 0 RF: 0 bupropion HCl 150 mg Tablet Sustained-Release 12 Hr 150 mg PO BID Qty: 0 RF: 0 olanzapine 2.5 mg Tablet 2.5 mg PO BEDTIME Qty: 0 RF: 0 omeprazole 20 mg Capsule,Delayed Release(Dr/Ec) 20 mg PO Q DAY Qty: 0 RF: 0 escitalopram oxalate [Lexapro] 20 mg Tablet 2 tab PO DAILY Qty: 0 RF: 0 cyclobenzaprine 10 mg Tablet 0.5 - 1 tab PO TID PRN (Reason: Muscle Spasm) RF: 0 cevimeline 30 mg Capsule 1 cap PO TID RF: 0 furosemide 20 mg Tablet 1 tab PO DAILY PRN (Reason: edema) RF: 0 lisinopril 2.5 mg Tablet 2.5 mg PO DAILY RF: 0 insulin aspart U-100 [Novolog Flexpen U-100 Insulin] 100 unit/mL Insulin Pen 4 - 6 unit SUBCUT AC RF: 0 hydrocodone-acetaminophen 5-325 mg Tablet 1 tab PO TID Qty: 0 RF: 0 insulin glargine [Lantus Solostar U-100 Insulin] 100 unit/mL (3 mL) Insulin Pen 50 unit SUBCUT BEDTIME Qty: 0 RF: 0 gabapentin 600 mg Tablet 1,200 mg PO BEDTIME Qty: 0 RF: 0 ondansetron HCl 4 mg tablet 4 mg PO TID PRN (Reason: nausea and vomiting) 5 Days Qty: 15 RF: 0 Referrals: Karmen Avalos PA-C [Primary Care Provider] -
== END 2018-06-27 22:11 | disposition home or self-care (01) ==
PROVIDERS: Emergency Provider Nurse Practitioner Family; Family Provider Physician Assistant; PCP Physician Assistant
DX: Z76.0 Encounter for issue of repeat prescription (principal)

== ENCOUNTER 2018-06-27 23:46 | Emergency (ER) | payer OTHER, SELFPAY ==
[2018-06-24 16:22] VITALS: BMI 35.2
[2018-06-27 23:56] VITALS: BP 157/65; PULSE 70; RESP 20; TEMP 36.8; O2SAT 98; BMI 34.3
--- NOTE | 2018-06-27 23:57 | ED_ITS ---
HPI - Allergic Reaction General Chief complaint: Allergic Reaction Stated complaint: possible allergic reaction Time Seen by Provider: 06/27/18 23:54 Source: patient and family (daughter) Mode of arrival: ambulatory Limitations: no limitations History of Present Illness HPI narrative: This is a 67-year-old female comes to the emergency department with complaint allergic reaction. Patient had Septra/Bactrim about an hour and a half ago, symptoms started about an hour ago. She feels sort of tight in her throat. She feels wheezy in her chest. She has not had any swelling of her lips or mouth that she is aware of. She feels nauseated. She did receive Zofran which she states was not helpful. Patient does not have any known medication allergies. She was just discharged this from the hospital for a sepsis and cellulitis of her left lower extremity. Patient was seen here in the emergency department because they were unable to fill her antibiotic prescription and were given the initial dose of antibiotics here. She has not had any for this evening. Patient has felt hot and chilled intermittently. She does not have any rashes skin changes. She has not had allergic reactions in the past. She has not had any vomiting. She has not had any diarrhea. Related Data Home Medications Medication Instructions Recorded Confirmed atorvastatin 20 mg PO DAILY #0 03/16/10 06/24/18 bupropion HCl 150 mg PO BID #0 03/16/10 06/24/18 cholecalciferol (vitamin D3) 1,000 unit PO DAILY #0 03/16/10 06/24/18 [Vitamin D3] escitalopram oxalate [Lexapro] 2 tab PO DAILY #0 03/16/10 06/24/18 levothyroxine 112 mcg PO DAILY #0 03/16/10 06/24/18 morphine 15 mg PO Q8H #0 03/16/10 06/24/18 multivitamin 1 tab PO DAILY #0 03/16/10 06/24/18 olanzapine 2.5 mg PO BEDTIME #0 03/16/10 06/24/18 omeprazole 20 mg PO Q DAY #0 03/16/10 06/24/18 cevimeline 1 cap PO TID 06/24/18 06/24/18 cyclobenzaprine 0.5 - 1 tab PO TID PRN 06/24/18 06/24/18 furosemide 1 tab PO DAILY PRN 06/24/18 06/24/18 insulin aspart U-100 [Novolog 4 - 6 unit SUBCUT AC 06/24/18 06/24/18 Flexpen U-100 Insulin] lisinopril 2.5 mg PO DAILY 06/24/18 06/24/18 Previous Rx's Medication Instructions Recorded gabapentin 1,200 mg PO BEDTIME #0 tab 06/27/18 hydrocodone-acetaminophen 1 tab PO TID #0 tab 06/27/18 insulin glargine [Lantus Solostar 50 unit SUBCUT BEDTIME #0 ml 06/27/18 U-100 Insulin] ondansetron 4 mg PO TID PRN #10 tab 06/27/18 ondansetron HCl 4 mg PO TID PRN 5 Days #15 tab 06/27/18 sulfamethoxazole-trimethoprim 1 tab PO BID #14 tab 06/27/18 [Bactrim DS] clindamycin HCl 300 mg PO QID #40 cap 06/28/18 Allergies Allergy/AdvReac Type Severity Reaction Status Date / Time No Known Drug Allergies Allergy Verified 06/24/18 00:29 Review of Systems Review of Systems All systems reviewed & are unremarkable except as noted in HPI and below Constitutional Reports chills, Denies fever(s) and Denies night sweats ENT Ears, Nose, Mouth, and Throat: Denies hoarseness, Denies lip swelling, Denies sore throat, Reports throat swelling and Denies tongue swelling Cardiovascular Denies chest pain, Denies syncope, Denies dyspnea and Denies dyspnea on exertion Respiratory Denies cough, Denies dyspnea, Denies dyspnea on exertion, Denies wheezing and Reports other (Chest feels tight) Gastrointestinal Gastrointestinal: Denies abdominal pain, Denies change in bowel habits, Denies diarrhea, Reports nausea and Denies vomiting Musculoskeletal Reports other (cellulitis, redness) Integumentary/Breasts Denies rash (no new rash, still has redness from infection) Neurologic Denies syncope Allergic/Immunologic Denies lip swelling, Reports throat swelling, Denies tongue swelling and Denies wheezing [facility] Medical History Depression (Acute) Diabetes (Acute) Fibromyalgia (Acute) Fibromyalgia (Acute) GERD (gastroesophageal reflux disease) (Acute) Meningioma (Acute) Restless leg syndrome (Acute) Sjogren's disease (Acute) Sleep apnea (Acute) Spinal stenosis, lumbar (Acute) Surgical History H/O total hysterectomy (Acute) Social History household members: spouse and children Smoking Status: Current every day smoker Exam Narrative Exam Narrative: GEN: well nourished, well appearing female, alert and oriented x 3, patient appears to be in mild distress. HEENT: Atraumatic, pupils are equal round reactive to light, extraocular movements are intact, nares are clear, TMs are clear with no fluid, there is no conjunctival pallor. Throat is clear without any exudates, erythema, tonsillar enlargement or uvular deviation, no swelling of lips or oropharynx, no hoarseness HEART: Regular rate and rhythm without murmur, clicks, rubs. LUNGS:Lungs clear to auscultation, no wheezes, rales, crackles, chest moves symmetrically, no tachypnea, speaks in full sentences. ABD:bowel sounds normal, soft, non-tender, no guarding, rebound, rigidity, no masses noted, no hepatosplenomegaly MSCL: Non-tender, no muscle atrophy,, full range of motion, normal gait, patient able to stand and walk to gurney without issue. NEURO:CN 2-12 intact, sensation normal. SKIN: erythema of left lower leg, patient has hyperkeratoic/scabbed changes to anterior thomas appears similar to when patient was seen for initial admission for sepsis/cellulitis. Patient has no other hives or skin changes. Initial Vital Signs Initial Vital Signs: Vital Signs Temperature 98.3 F 06/27/18 23:56 Pulse Rate 70 06/27/18 23:56 Respiratory Rate 20 06/27/18 23:56 Blood Pressure 157/65 H 06/27/18 23:56 Pulse Oximetry 98 06/27/18 23:56 Course Orders Ordered: ED Orders 06/28/18 00:50 Complete Blood Count AUTO DIFF Stat Discontinued Medications Diphenhydramine HCl (Benadryl) 50 mg IV NOW ONE Stop: 06/27/18 23:55 Last Admin: 06/28/18 00:04 Dose: 50 mg Famotidine (Pepcid) 20 mg in 50 mls @ 200 mls/hr IV NOW ONE Stop: 06/28/18 00:08 Last Infusion: 06/28/18 00:41 Dose: 0 mls/hr Admin: 06/28/18 00:04 Dose: 200 mls/hr Methylprednisolone (Solu-Medrol 125 Mg Vial) 125 mg IV NOW ONE Stop: 06/27/18 23:55 Last Admin: 06/28/18 00:03 Dose: 125 mg Vital Signs - 8 hr 06/27/18 23:56 06/28/18 00:40 06/28/18 01:39 Temperature 98.3 F 98.2 F Pulse Rate 70 75 Respiratory Rate 20 16 Blood Pressure 157/65 H 141/59 H Pulse Oximetry 98 97 MDM - Allergic Reaction Lab Data Result diagrams: 06/27/18 23:58 Lab Results 06/27/18 Range/Units 23:58 WBC 3.6 L (4.5-11.0) X10^3/uL RBC 4.57 (4.0-5.2) X10^6/uL Hgb 13.3 (12.0-16.0) g/dL Hct 39.4 (36-46) % MCV 86.1 (80-100) fL MCH 29.1 (26-34) PG MCHC 33.8 (30-36) % RDW 13.8 (11.6-14.8) % Plt Count 158 (150-400) X10^3/uL Neut % (Auto) 69.3 (50-75) % Lymph % (Auto) 28.2 (25-40) % [place] % (Auto) 1.2 L (3-14) % Eos % (Auto) 0.8 L (2-4) % Baso % (Auto) 0.5 (0-2) % Neut # (Auto) 2500 L (8593-8853) /uL Point of Care Testing Glucose POC 134 Urine Dip Bedside Urine Glucose Negative Bedside Urine Bilirubin - Negative Bedside Urine Ketone - Negative Urine Specific [place] 1.015 Bedside Urine Occult Blood - Negative Bedside Urine pH 6.0 Bedside Urine Protein - Negative Bedside Urine Urobilinogen - Negative Bedside Urine Nitrite - Negative Bedside Urine Leukocytes - Negative Esterase MDM Narrative Medical decision making narrative: Patient may be having a reaction to antibiotic. No changes on exam but patient feels tight in lung/throat. Solu- medrol and Benadryl given in ED. Re-evaluated several times no other changes. Patient received Solumedrol, pepcid and benadryl. Discussed and will change antibiotics for potential allergic reaction. POC glucose 130s. Patient still feels chilled, CBC repeated, wbc low but no neuts elevation. Vitals appropriate in ED. poc urine was checked as patient had some symptoms, negative. Her lower extremity looks improved from initial admission when I first saw her and she states is improved as well. Plan for different antibiotic for potential allergic reaction. Can continue benadryl. Will hold on steroid as this may worsen potential for infection. She has follow up with wound care and Karmen Avalos. Discharge Plan Departure Patient Disposition: Home Clinical Impression: Cellulitis of left leg, Allergic reaction Discharge Date/Time: 06/28/18 01:40 Interventions: ED Discharge Assessment Last Done: 06/28/18 01:39 Instructions: DI for Adverse Drug Reaction -- Allergic Activity Restrictions/Additional Instructions: Follow-up with primary care next 24-48 hours for recheck. Stop septra/Bactrim. Start new antibiotic tomorrow. You may continue your home medications. You may take benadryl 1-2 tablets every 6-8 hours for any recurrent symptoms. If you have swelling of your face, mouth, throat, hives, difficulty breathing or other new or concerning symptoms return to ER for recheck. Prescriptions: New clindamycin HCl 300 mg capsule 300 mg PO QID Qty: 40 RF: 0 No Action morphine 15 MG tablet 15 mg PO Q8H Qty: 0 RF: 0 multivitamin Tablet 1 tab PO DAILY Qty: 0 RF: 0 cholecalciferol (vitamin D3) [Vitamin D3] 1,000 unit Tablet 1,000 unit PO DAILY Qty: 0 RF: 0 atorvastatin 20 mg Tablet 20 mg PO DAILY Qty: 0 RF: 0 levothyroxine 112 mcg Capsule 112 mcg PO DAILY Qty: 0 RF: 0 bupropion HCl 150 mg Tablet Sustained-Release 12 Hr 150 mg PO BID Qty: 0 RF: 0 olanzapine 2.5 mg Tablet 2.5 mg PO BEDTIME Qty: 0 RF: 0 omeprazole 20 mg Capsule,Delayed Release(Dr/Ec) 20 mg PO Q DAY Qty: 0 RF: 0 escitalopram oxalate [Lexapro] 20 mg Tablet 2 tab PO DAILY Qty: 0 RF: 0 cyclobenzaprine 10 mg Tablet 0.5 - 1 tab PO TID PRN (Reason: Muscle Spasm) RF: 0 cevimeline 30 mg Capsule 1 cap PO TID RF: 0 furosemide 20 mg Tablet 1 tab PO DAILY PRN (Reason: edema) RF: 0 lisinopril 2.5 mg Tablet 2.5 mg PO DAILY RF: 0 insulin aspart U-100 [Novolog Flexpen U-100 Insulin] 100 unit/mL Insulin Pen 4 - 6 unit SUBCUT AC RF: 0 hydrocodone-acetaminophen 5-325 mg Tablet 1 tab PO TID Qty: 0 RF: 0 insulin glargine [Lantus Solostar U-100 Insulin] 100 unit/mL (3 mL) Insulin Pen 50 unit SUBCUT BEDTIME Qty: 0 RF: 0 gabapentin 600 mg Tablet 1,200 mg PO BEDTIME Qty: 0 RF: 0 ondansetron HCl 4 mg tablet 4 mg PO TID PRN (Reason: nausea and vomiting) 5 Days Qty: 15 RF: 0 ondansetron 4 mg tablet,disintegrating 4 mg PO TID PRN (Reason: nausea and vomiting) Qty: 10 RF: 0 sulfamethoxazole-trimethoprim [Bactrim DS] 800-160 mg tablet 1 tab PO BID Qty: 14 RF: 0 Referrals: Karmen Avalos PA-C [Primary Care Provider] -
[2018-06-28] MEDS: methylPREDNISolone 125 MG/2 ML VIAL IV (00:03)
[2018-06-28] MEDS: FAMOTIDINE 20 MG/50 ML PIGGYBACK 200 MG IV (00:04)
[2018-06-28] MEDS: diphenhydrAMINE 50 MG/ML VIAL IV (00:04)
[2018-06-28 00:40] VITALS: TEMP 36.8
[2018-06-28 00:58] LABS: Add Manual Diff / Slide Review NO; Basophils Percent Auto 0.5 % (0-2); Eosinophils Percent Auto 0.8 % (2-4); Hematocrit 39.4 % (36-46); Hemoglobin 13.3 g/dL (12.0-16.0); Lymphocytes Percent Auto 28.2 % (25-40); Mean Corpuscular HGB Conc 33.8 % (30-36); Mean Corpuscular Hemoglobin 29.1 PG (26-34); Mean Corpuscular Volume 86.1 fL (80-100); Monocytes Percent Auto 1.2 % (3-14); Neutrophils Absolute Auto 2500 /uL (3000-5900); Neutrophils Percent Auto 69.3 % (50-75); Platelet Count 158 X10^3/uL (150-400); Red Blood Cell Count 4.57 X10^6/uL (4.0-5.2); Red Cell Distribution Width 13.8 % (11.6-14.8); White Blood Cell Count 3.6 X10^3/uL (4.5-11.0)
[2018-06-28 01:39] VITALS: BP 141/59; PULSE 75; RESP 16; O2SAT 97
== END 2018-06-28 01:40 | disposition home or self-care (01) ==
PROVIDERS: Emergency Provider Emergency Medicine; Family Provider Physician Assistant; PCP Physician Assistant
DX: L03.116 Cellulitis of left lower limb (principal); T78.40XA Allergy, unspecified, initial encounter; Z76.0 Encounter for issue of repeat prescription
CPT/HCPCS: 36591; 81003; 82962; 85025; 96365; 96375; 99282; 99283; 99284; J1200; J2930

== ENCOUNTER → 2018-06-30 15:55 | Outpatient (CLI) | payer OTHER, SELFPAY ==
[2018-06-24 16:22] VITALS: BMI 35.2
== END ==
PROVIDERS: Family Provider Physician Assistant; PCP Physician Assistant; Visit Provider Family Medicine
DX: I87.2 Venous insufficiency (chronic) (peripheral) (principal); E11.9 Type 2 diabetes mellitus without complications
CPT/HCPCS: 99203; 99213

== ENCOUNTER 2018-08-07 00:28 | Emergency (ER) | payer OTHER, SELFPAY ==
[2018-06-24 16:22] VITALS: BMI 35.2
--- NOTE | 2018-08-07 00:33 | ED_ITS ---
HPI - General Adult General Chief complaint: Diabetic Problem Stated complaint: vomiting, diabetic blood sugar is low Time Seen by Provider: 08/07/18 00:31 Source: patient Mode of arrival: wheelchair Limitations: no limitations History of Present Illness HPI narrative: 68-year-old female here for evaluation of 2 episodes of vomiting and low blood sugar. She states the last time she took her insulin was prior to dinner last evening. She states that prior to arrival she vomited 2 times. States it took her blood pressure at home and it was low. Time my exam patient reporting some ?queasiness? but no nausea. Has not vomited here in the emergency department. Related Data Home Medications Medication Instructions Recorded Confirmed atorvastatin 20 mg PO DAILY #0 03/16/10 06/24/18 bupropion HCl 150 mg PO BID #0 03/16/10 06/24/18 cholecalciferol (vitamin D3) 1,000 unit PO DAILY #0 03/16/10 06/24/18 [Vitamin D3] escitalopram oxalate [Lexapro] 2 tab PO DAILY #0 03/16/10 06/24/18 levothyroxine 112 mcg PO DAILY #0 03/16/10 06/24/18 morphine 15 mg PO Q8H #0 03/16/10 06/24/18 multivitamin 1 tab PO DAILY #0 03/16/10 06/24/18 olanzapine 2.5 mg PO BEDTIME #0 03/16/10 06/24/18 omeprazole 20 mg PO Q DAY #0 03/16/10 06/24/18 cevimeline 1 cap PO TID 06/24/18 06/24/18 cyclobenzaprine 0.5 - 1 tab PO TID PRN 06/24/18 06/24/18 furosemide 1 tab PO DAILY PRN 06/24/18 06/24/18 insulin aspart U-100 [Novolog 4 - 6 unit SUBCUT AC 06/24/18 06/24/18 Flexpen U-100 Insulin] lisinopril 2.5 mg PO DAILY 06/24/18 06/24/18 Previous Rx's Medication Instructions Recorded gabapentin 1,200 mg PO BEDTIME #0 tab 06/27/18 hydrocodone-acetaminophen 1 tab PO TID #0 tab 06/27/18 insulin glargine [Lantus Solostar 50 unit SUBCUT BEDTIME #0 ml 06/27/18 U-100 Insulin] ondansetron 4 mg PO TID PRN #10 tab 06/27/18 sulfamethoxazole-trimethoprim 1 tab PO BID #14 tab 06/27/18 [Bactrim DS] clindamycin HCl 300 mg PO QID #40 cap 06/28/18 Allergies Allergy/AdvReac Type Severity Reaction Status Date / Time No Known Drug Allergies Allergy Verified 06/24/18 00:29 Review of Systems Constitutional Denies chills, Denies fever(s), Denies lethargy and Denies weakness Eyes Denies change in vision Cardiovascular Denies chest pain and Denies dyspnea Respiratory Denies dyspnea Gastrointestinal Gastrointestinal: Denies abdominal pain, Reports nausea and Reports vomiting Genitourinary Denies dysuria Musculoskeletal Denies myalgias and Denies arthralgias Integumentary/Breasts Denies rash Neurologic Denies weakness Hematologic/Lymphatic Denies easy bleeding and Denies easy bruising PFS Social History household members: spouse and children Smoking Status: Current every day smoker Exam Initial Vital Signs Initial Vital Signs: Vital Signs Pulse Rate 73 08/07/18 00:39 Respiratory Rate 18 08/07/18 00:39 Blood Pressure 119/62 08/07/18 00:39 Pulse Oximetry 100 08/07/18 00:39 Const General: cooperative, healthy appearing, comfortable, well developed, well groomed and No acute distress Orientation: alert, awake and oriented x3 HENMT Head: normal to inspection and normocephalic Resp Effort & Inspection: normal respiratory effort Auscultation: clear to auscultation bilaterally Cardio Rate: regular rate Rhythm: regular rhythm GI Inspection: non-distended Palpation: soft Skin Lesions: no lesions Rashes: no rashes Neuro General: alert, awake and oriented x3 Extrem General: normal to inspection and capillary refill normal Psych Appearance: grossly normal and well kempt Course Orders Ordered: ED Orders 08/07/18 00:47 Complete Blood Count AUTO DIFF Stat Comprehensive Metabolic Panel Stat Lipase Stat Vital Signs - 8 hr 08/07/18 00:39 08/07/18 03:15 Pulse Rate 73 84 Respiratory Rate 18 18 Blood Pressure 119/62 107/53 L Pulse Oximetry 100 98 Medical Decision Making Lab Data Lab results reviewed: Yes I reviewed the patient's lab results. Result diagrams: 08/07/18 00:47 08/07/18 00:47 Lab Results 08/07/18 08/07/18 Range/Units 00:47 00:47 WBC 6.3 (4.5-11.0) X10^3/uL RBC 5.03 (4.0-5.2) X10^6/uL Hgb 14.7 (12.0-16.0) g/dL Hct 43.6 (36-46) % MCV 86.9 (80-100) fL MCH 29.2 (26-34) PG MCHC 33.7 (30-36) % RDW 13.5 (11.6-14.8) % Plt Count 185 (150-400) X10^3/uL Neut % (Auto) 52.7 (50-75) % Lymph % (Auto) 34.5 (25-40) % [place] % (Auto) 7.5 (3-14) % Eos % (Auto) 5.1 H (2-4) % Baso % (Auto) 0.2 (0-2) % Neut # (Auto) 3300 (1973-4396) /uL Sodium 141 (137-145) mmol/L Potassium 3.8 (3.4-5.1) mmol/L Chloride 97 L (98-107) mmol/L Carbon Dioxide 34 H (22-32) mmol/L BUN 15 (7-17) mg/dL Creatinine 0.50 L (0.52-1.04) mg/dL Estimated GFR > 60.0 (>60) mL/min BUN/Creatinine Ratio 30.0 H (6-22) Glucose 51 L (80-110) mg/dL Calcium 9.8 (8.4-10.2) mg/dL Total Bilirubin 0.5 (0.2-1.3) mg/dL AST 39 H (14-36) IU/L ALT 38 (9-52) IU/L Alkaline Phosphatase 124 (38-126) U/L Total Protein 8.2 (6.3-8.2) g/dL Albumin 4.4 (3.5-5.0) g/dL Globulin 3.8 (1.7-4.1) g/dL Albumin/Globulin Ratio 1.2 (1.0-2.8) Lipase 46 (23-300) U/L Point of Care Testing Glucose POC 153 Point of care testing: Point of Care Testing Glucose POC 153 MDM Narrative Medical decision making narrative: Upon arrival patient's blood sugar was in the 40s. She was given juice and then crackers and peanut butter and milk. Patient was able to maintain her blood sugars greater than 100 for approximately an hour after eating here in the emergency department. She had no further vomiting episodes while she was here. She had no further complaints. Will discharge home. Patient was given return precautions. Discharge Plan Departure Patient Disposition: Home Clinical Impression: Hypoglycemia, Vomiting Discharge Date/Time: 08/07/18 03:15 Interventions: ED Discharge Assessment Last Done: 08/07/18 03:15 Instructions: DI for Hypoglycemia Activity Restrictions/Additional Instructions: I recommend that you check your blood sugars on a regular basis at home. Be sure to eat a balanced diet. Call your primary care doctor for a follow-up. Return to the emergency department for any new or worsening symptoms Prescriptions: No Action morphine 15 MG tablet 15 mg PO Q8H Qty: 0 RF: 0 multivitamin Tablet 1 tab PO DAILY Qty: 0 RF: 0 cholecalciferol (vitamin D3) [Vitamin D3] 1,000 unit Tablet 1,000 unit PO DAILY Qty: 0 RF: 0 atorvastatin 20 mg Tablet 20 mg PO DAILY Qty: 0 RF: 0 levothyroxine 112 mcg Capsule 112 mcg PO DAILY Qty: 0 RF: 0 bupropion HCl 150 mg Tablet Sustained-Release 12 Hr 150 mg PO BID Qty: 0 RF: 0 olanzapine 2.5 mg Tablet 2.5 mg PO BEDTIME Qty: 0 RF: 0 omeprazole 20 mg Capsule,Delayed Release(Dr/Ec) 20 mg PO Q DAY Qty: 0 RF: 0 escitalopram oxalate [Lexapro] 20 mg Tablet 2 tab PO DAILY Qty: 0 RF: 0 cyclobenzaprine 10 mg Tablet 0.5 - 1 tab PO TID PRN (Reason: Muscle Spasm) RF: 0 cevimeline 30 mg Capsule 1 cap PO TID RF: 0 furosemide 20 mg Tablet 1 tab PO DAILY PRN (Reason: edema) RF: 0 lisinopril 2.5 mg Tablet 2.5 mg PO DAILY RF: 0 insulin aspart U-100 [Novolog Flexpen U-100 Insulin] 100 unit/mL Insulin Pen 4 - 6 unit SUBCUT AC RF: 0 hydrocodone-acetaminophen 5-325 mg Tablet 1 tab PO TID Qty: 0 RF: 0 insulin glargine [Lantus Solostar U-100 Insulin] 100 unit/mL (3 mL) Insulin Pen 50 unit SUBCUT BEDTIME Qty: 0 RF: 0 gabapentin 600 mg Tablet 1,200 mg PO BEDTIME Qty: 0 RF: 0 ondansetron 4 mg tablet,disintegrating 4 mg PO TID PRN (Reason: nausea and vomiting) Qty: 10 RF: 0 sulfamethoxazole-trimethoprim [Bactrim DS] 800-160 mg tablet 1 tab PO BID Qty: 14 RF: 0 clindamycin HCl 300 mg capsule 300 mg PO QID Qty: 40 RF: 0
[2018-08-07 00:39] VITALS: BP 119/62; PULSE 73; RESP 18; O2SAT 100; BMI 29.7
[2018-08-07 00:58] LABS: Add Manual Diff / Slide Review NO; Basophils Percent Auto 0.2 % (0-2); Eosinophils Percent Auto 5.1 % (2-4); Hematocrit 43.6 % (36-46); Hemoglobin 14.7 g/dL (12.0-16.0); Lymphocytes Percent Auto 34.5 % (25-40); Mean Corpuscular HGB Conc 33.7 % (30-36); Mean Corpuscular Hemoglobin 29.2 PG (26-34); Mean Corpuscular Volume 86.9 fL (80-100); Monocytes Percent Auto 7.5 % (3-14); Neutrophils Absolute Auto 3300 /uL (1500-7000); Neutrophils Percent Auto 52.7 % (50-75); Platelet Count 185 X10^3/uL (150-400); Red Blood Cell Count 5.03 X10^6/uL (4.0-5.2); Red Cell Distribution Width 13.5 % (11.6-14.8); White Blood Cell Count 6.3 X10^3/uL (4.5-11.0)
[2018-08-07 01:15] LABS: Alanine Aminotransferase 38 IU/L (9-52); Albumin 4.4 g/dL (3.5-5.0); Albumin Globulin Ratio 1.2 (1.0-2.8); Alkaline Phosphatase 124 U/L (38-126); Bilirubin Total 0.5 mg/dL (0.2-1.3); Blood Urea Nitrogen 15 mg/dL (7-17); Calcium 9.8 mg/dL (8.4-10.2); Carbon Dioxide 34 mmol/L (22-32); Chloride 97 mmol/L (98-107); Estimated Glomerular Filt Rate > 60.0 mL/min (>60); Globulin 3.8 g/dL (1.7-4.1); Glucose 51 mg/dL (80-110); Lipase 46 U/L (23-300); Sodium 141 mmol/L (137-145); Total Protein 8.2 g/dL (6.3-8.2)
[2018-08-07 01:19] LABS: HEMOLYSIS 57 (0-50)
[2018-08-07 01:21] LABS: Potassium 3.8 mmol/L (3.4-5.1)
[2018-08-07 01:22] LABS: Aspartate Aminotransferase 39 IU/L (14-36)
[2018-08-07 03:15] VITALS: BP 107/53; PULSE 84; RESP 18; O2SAT 98
--- NOTE | 2018-08-07 04:58 | PC.NURSE ---
Pt reports feeling very cold and vomiting after eating at 0600 after she had administered short acting insulin
== END 2018-08-07 03:15 | disposition home or self-care (01) ==
PROVIDERS: Emergency Provider Emergency Medicine; Family Provider Physician Assistant; PCP Physician Assistant
DX: E16.2 Hypoglycemia, unspecified (principal); R11.10 Vomiting, unspecified
CPT/HCPCS: 36591; 80053; 82962; 83690; 85025; 99282; 99283

== ENCOUNTER 2018-08-13 20:52 | Emergency (ER) | payer OTHER, SELFPAY ==
[2018-06-24 16:22] VITALS: BMI 35.2
[2018-08-13 21:06] VITALS: BP 132/96; PULSE 76; RESP 14; TEMP 36.5; O2SAT 96
[2018-08-13 21:21] VITALS: BP 132/96; PULSE 74; RESP 14; O2SAT 95
--- NOTE | 2018-08-13 21:23 | PC.NURSE ---
Pt has multiple discolored wounds to left thomas. Has been admitted previously from sepsis from wounds. Reports wounds getting worse with new ones forming. Left leg is edematous. Pt reports leg is painful to touch.
--- NOTE | 2018-08-13 21:42 | ED_ITS ---
HPI - Extremity Problem General Chief complaint: Extremity Problem,Nontraumatic Stated complaint: sore on left leg is oozing, type 1 diabetic Time Seen by Provider: 08/13/18 20:59 Source: patient Mode of arrival: ambulatory Limitations: no limitations History of Present Illness HPI Narrative: Patient is a 68-year-old female who presents with left leg cellulitis. She was admitted in June with septic shock due to cellulitis. She has been off and on antibiotics since then. She says that over the last 2- 3 days she has noted increased redness in her left leg. She has also been going to wound care. She has not had fever or chills. She has no pain. But she has noted definite increased redness. Onset (ago): day(s) Location: left and lower extremity Relieving factors: nothing Exacerbating factors: nothing Related Data Home Medications Medication Instructions Recorded Confirmed atorvastatin 20 mg PO DAILY #0 03/16/10 06/24/18 bupropion HCl 150 mg PO BID #0 03/16/10 06/24/18 cholecalciferol (vitamin D3) 1,000 unit PO DAILY #0 03/16/10 06/24/18 [Vitamin D3] escitalopram oxalate [Lexapro] 2 tab PO DAILY #0 03/16/10 06/24/18 levothyroxine 112 mcg PO DAILY #0 03/16/10 06/24/18 morphine 15 mg PO Q8H #0 03/16/10 06/24/18 multivitamin 1 tab PO DAILY #0 03/16/10 06/24/18 olanzapine 2.5 mg PO BEDTIME #0 03/16/10 06/24/18 omeprazole 20 mg PO Q DAY #0 03/16/10 06/24/18 cevimeline 1 cap PO TID 06/24/18 06/24/18 cyclobenzaprine 0.5 - 1 tab PO TID PRN 06/24/18 06/24/18 furosemide 1 tab PO DAILY PRN 06/24/18 06/24/18 insulin aspart U-100 [Novolog 4 - 6 unit SUBCUT AC 06/24/18 06/24/18 Flexpen U-100 Insulin] lisinopril 2.5 mg PO DAILY 06/24/18 06/24/18 Previous Rx's Medication Instructions Recorded gabapentin 1,200 mg PO BEDTIME #0 tab 06/27/18 hydrocodone-acetaminophen 1 tab PO TID #0 tab 06/27/18 insulin glargine [Lantus Solostar 50 unit SUBCUT BEDTIME #0 ml 06/27/18 U-100 Insulin] ondansetron 4 mg PO TID PRN #10 tab 06/27/18 sulfamethoxazole-trimethoprim 1 tab PO BID #14 tab 06/27/18 [Bactrim DS] clindamycin HCl 300 mg PO QID #40 cap 06/28/18 cephalexin [Keflex] 500 mg PO TID #21 cap 08/13/18 Allergies Allergy/AdvReac Type Severity Reaction Status Date / Time No Known Drug Allergies Allergy Verified 08/13/18 21:06 Review of Systems Review of Systems All systems reviewed & are unremarkable except as noted in HPI and below Constitutional Denies chills, Denies fever(s), Denies lethargy and Denies weakness ENT Ears, Nose, Mouth, and Throat: Denies vertigo Cardiovascular Denies chest pain, Denies irregular heart rhythm, Denies lightheadedness, Denies palpitations, Denies dyspnea, Denies dyspnea on exertion and Denies orthopnea Respiratory Denies cough, Denies dyspnea, Denies dyspnea on exertion and Denies wheezing Gastrointestinal Gastrointestinal: Denies abdominal pain, Denies change in bowel habits, Denies diarrhea, Denies nausea and Denies vomiting Musculoskeletal Denies joint swelling and Denies muscle weakness Integumentary/Breasts Reports as per HPI Neurologic Denies confusion, Denies vertigo and Denies weakness Psychiatric Denies confusion Endocrine Denies palpitations Allergic/Immunologic Denies wheezing [facility] Medical History Depression (Acute) Diabetes (Acute) Fibromyalgia (Acute) Fibromyalgia (Acute) GERD (gastroesophageal reflux disease) (Acute) Meningioma (Acute) Restless leg syndrome (Acute) Sjogren's disease (Acute) Sleep apnea (Acute) Spinal stenosis, lumbar (Acute) Social History household members: spouse and children Smoking Status: Current every day smoker Exam Initial Vital Signs Initial Vital Signs: Vital Signs Temperature 97.7 F 08/13/18 21:06 Pulse Rate 76 08/13/18 21:06 Respiratory Rate 14 08/13/18 21:06 Blood Pressure 132/96 H 08/13/18 21:06 Pulse Oximetry 96 08/13/18 21:06 GENERAL: Alert elderly female no acute distress alert oriented x4 HEENT: Head atraumatic,EOMI, pupils reactive, face symmetric CARDIOVASCULAR: Regular rate and rhythm without murmurs, rubs or gallops. RESPIRATORY: Breath sounds equal bilaterally, no wheezes rales or rhonchi. ABDOMEN: Soft, nontender. Normoactive bowel sounds all 4 quadrants. No guarding or rebound. EXTREMITIES: Normal range of motion, no clubbing or edema. Neurovascularly intact NEUROLOGICAL: Alert and oriented x4.Normal gait and speech. Cranial nerves II through XII grossly intact. SKIN: Left leg healing wound but does have some surrounding mild erythema no gross pus or drainage no pain Course Orders Ordered: ED Orders 08/13/18 21:50 Complete Blood Count AUTO DIFF Stat Comprehensive Metabolic Panel Stat Lactate (Lactic Acid) Stat Procalcitonin Stat 08/13/18 22:08 Blood Culture Stat Discontinued Medications Ceftriaxone Sodium/Dextrose (Rocephin) 1 gm in 50 mls @ 100 mls/hr IV NOW ONE Stop: 08/13/18 22:56 Last Infusion: 08/13/18 23:01 Dose: 0 mls/hr Admin: 08/13/18 22:30 Dose: 100 mls/hr Vital Signs - 8 hr 08/13/18 21:06 08/13/18 21:21 08/13/18 22:43 Temperature 97.7 F Pulse Rate 76 74 80 Respiratory Rate 14 14 19 Blood Pressure 132/96 H Blood Pressure [Left Arm] 112/59 L Blood Pressure [Right Arm] 132/96 H Pulse Oximetry 96 95 96 08/13/18 23:01 Temperature Pulse Rate 75 Respiratory Rate 22 Blood Pressure 112/59 L Blood Pressure [Left Arm] Blood Pressure [Right Arm] Pulse Oximetry 96 MDM - Extremity (Nontraumatic) Lab Data Attestation: I reviewed the patient's lab results. Result diagrams: 08/13/18 21:50 08/13/18 21:50 Lab Results 08/13/18 08/13/18 08/13/18 Range/Units 21:50 21:50 21:50 WBC 4.3 L (4.5-11.0) X10^3/uL RBC 4.66 (4.0-5.2) X10^6/uL Hgb 13.7 (12.0-16.0) g/dL Hct 40.1 (36-46) % MCV 86.0 (80-100) fL MCH 29.3 (26-34) PG MCHC 34.1 (30-36) % RDW 13.5 (11.6-14.8) % Plt Count 217 (150-400) X10^3/uL Neut % (Auto) 44.5 L (50-75) % Lymph % (Auto) 43.2 H (25-40) % [place] % (Auto) 7.3 (3-14) % Eos % (Auto) 4.9 H (2-4) % Baso % (Auto) 0.1 (0-2) % Neut # (Auto) 1900 (3197-8208) /uL Sodium 137 (137-145) mmol/L Potassium 4.1 (3.4-5.1) mmol/L Chloride 97 L (98-107) mmol/L Carbon Dioxide 31 (22-32) mmol/L BUN 11 (7-17) mg/dL Creatinine 0.50 L (0.52-1.04) mg/dL Estimated GFR > 60.0 (>60) mL/min BUN/Creatinine Ratio 22.0 (6-22) Glucose 259 H D (80-110) mg/dL Lactate (0.7-2.1) mmol/L Calcium 9.4 (8.4-10.2) mg/dL Total Bilirubin 0.6 (0.2-1.3) mg/dL AST 23 (14-36) IU/L ALT 28 (9-52) IU/L Alkaline Phosphatase 105 (38-126) U/L Total Protein 7.1 (6.3-8.2) g/dL Albumin 3.9 (3.5-5.0) g/dL Globulin 3.2 (1.7-4.1) g/dL Albumin/Globulin Ratio 1.2 (1.0-2.8) Procalcitonin < 0.05 (<0.5) ng/mL 08/13/18 Range/Units 21:50 WBC (4.5-11.0) X10^3/uL RBC (4.0-5.2) X10^6/uL Hgb (12.0-16.0) g/dL Hct (36-46) % MCV (80-100) fL MCH (26-34) PG MCHC (30-36) % RDW (11.6-14.8) % Plt Count (150-400) X10^3/uL Neut % (Auto) (50-75) % Lymph % (Auto) (25-40) % [place] % (Auto) (3-14) % Eos % (Auto) (2-4) % Baso % (Auto) (0-2) % Neut # (Auto) (7590-3020) /uL Sodium (137-145) mmol/L Potassium (3.4-5.1) mmol/L Chloride (98-107) mmol/L Carbon Dioxide (22-32) mmol/L BUN (7-17) mg/dL Creatinine (0.52-1.04) mg/dL Estimated GFR (>60) mL/min BUN/Creatinine Ratio (6-22) Glucose (80-110) mg/dL Lactate 1.2 (0.7-2.1) mmol/L Calcium (8.4-10.2) mg/dL Total Bilirubin (0.2-1.3) mg/dL AST (14-36) IU/L ALT (9-52) IU/L Alkaline Phosphatase (38-126) U/L Total Protein (6.3-8.2) g/dL Albumin (3.5-5.0) g/dL Globulin (1.7-4.1) g/dL Albumin/Globulin Ratio (1.0-2.8) Procalcitonin (<0.5) ng/mL MDM Narrative Medical decision making narrative: Patient does not appear septic at this time. She has mild erythema. His she has previously been on Bactrim but had a reaction to it she has also been on clindamycin. At this time lytes try Keflex she is given 1 dose of Rocephin in the ED. No sign of DKA Discharge Plan Departure Patient Disposition: Home Clinical Impression: Cellulitis of left leg, Cellulitis of lower extremity Discharge Date/Time: 08/13/18 23:02 Interventions: ED Discharge Assessment Last Done: 08/13/18 23:01 Instructions: DI for Cellulitis -- Adult Activity Restrictions/Additional Instructions: *You have been diagnosed with left leg cellulitis *What to do: Monitor redness. At this time blood work is reassuring *Continue to take medications as directed: [facility] [place] -Keflex 500 mg 3 times a day for 7 days *Follow up with your primary care provider in 2-3 days *Return to ER if you should have increasing redness, fever, shakes, chills or any new, worsening or concerning symptoms Prescriptions: New cephalexin [Keflex] 500 mg capsule 500 mg PO TID Qty: 21 RF: 0 No Action morphine 15 MG tablet 15 mg PO Q8H Qty: 0 RF: 0 multivitamin Tablet 1 tab PO DAILY Qty: 0 RF: 0 cholecalciferol (vitamin D3) [Vitamin D3] 1,000 unit Tablet 1,000 unit PO DAILY Qty: 0 RF: 0 atorvastatin 20 mg Tablet 20 mg PO DAILY Qty: 0 RF: 0 levothyroxine 112 mcg Capsule 112 mcg PO DAILY Qty: 0 RF: 0 bupropion HCl 150 mg Tablet Sustained-Release 12 Hr 150 mg PO BID Qty: 0 RF: 0 olanzapine 2.5 mg Tablet 2.5 mg PO BEDTIME Qty: 0 RF: 0 omeprazole 20 mg Capsule,Delayed Release(Dr/Ec) 20 mg PO Q DAY Qty: 0 RF: 0 escitalopram oxalate [Lexapro] 20 mg Tablet 2 tab PO DAILY Qty: 0 RF: 0 cyclobenzaprine 10 mg Tablet 0.5 - 1 tab PO TID PRN (Reason: Muscle Spasm) RF: 0 cevimeline 30 mg Capsule 1 cap PO TID RF: 0 furosemide 20 mg Tablet 1 tab PO DAILY PRN (Reason: edema) RF: 0 lisinopril 2.5 mg Tablet 2.5 mg PO DAILY RF: 0 insulin aspart U-100 [Novolog Flexpen U-100 Insulin] 100 unit/mL Insulin Pen 4 - 6 unit SUBCUT AC RF: 0 hydrocodone-acetaminophen 5-325 mg Tablet 1 tab PO TID Qty: 0 RF: 0 insulin glargine [Lantus Solostar U-100 Insulin] 100 unit/mL (3 mL) Insulin Pen 50 unit SUBCUT BEDTIME Qty: 0 RF: 0 gabapentin 600 mg Tablet 1,200 mg PO BEDTIME Qty: 0 RF: 0 ondansetron 4 mg tablet,disintegrating 4 mg PO TID PRN (Reason: nausea and vomiting) Qty: 10 RF: 0 sulfamethoxazole-trimethoprim [Bactrim DS] 800-160 mg tablet 1 tab PO BID Qty: 14 RF: 0 clindamycin HCl 300 mg capsule 300 mg PO QID Qty: 40 RF: 0 Referrals: Karmen Avalos PA-C [Primary Care Provider] -
[2018-08-13 22:03] LABS: Add Manual Diff / Slide Review NO; Basophils Percent Auto 0.1 % (0-2); Eosinophils Percent Auto 4.9 % (2-4); Hematocrit 40.1 % (36-46); Hemoglobin 13.7 g/dL (12.0-16.0); Lymphocytes Percent Auto 43.2 % (25-40); Mean Corpuscular HGB Conc 34.1 % (30-36); Mean Corpuscular Hemoglobin 29.3 PG (26-34); Monocytes Percent Auto 7.3 % (3-14); Neutrophils Absolute Auto 1900 /uL (1500-7000); Neutrophils Percent Auto 44.5 % (50-75); Platelet Count 217 X10^3/uL (150-400); Red Blood Cell Count 4.66 X10^6/uL (4.0-5.2); Red Cell Distribution Width 13.5 % (11.6-14.8); White Blood Cell Count 4.3 X10^3/uL (4.5-11.0)
[2018-08-13 22:14] LABS: Alanine Aminotransferase 28 IU/L (9-52); Albumin 3.9 g/dL (3.5-5.0); Albumin Globulin Ratio 1.2 (1.0-2.8); Alkaline Phosphatase 105 U/L (38-126); Aspartate Aminotransferase 23 IU/L (14-36); Bilirubin Total 0.6 mg/dL (0.2-1.3); Blood Urea Nitrogen 11 mg/dL (7-17); Calcium 9.4 mg/dL (8.4-10.2); Carbon Dioxide 31 mmol/L (22-32); Chloride 97 mmol/L (98-107); Estimated Glomerular Filt Rate > 60.0 mL/min (>60); Globulin 3.2 g/dL (1.7-4.1); Glucose 259 mg/dL (80-110); HEMOLYSIS < 15 (0-50); Lactate (Lactic Acid) 1.2 mmol/L (0.7-2.1); Potassium 4.1 mmol/L (3.4-5.1); Sodium 137 mmol/L (137-145); Total Protein 7.1 g/dL (6.3-8.2)
[2018-08-13] MEDS: CEFTRIAXONE 1 GM/50 ML FROZ.PIGGY IV (22:30)
[2018-08-13 22:37] LABS: Procalcitonin < 0.05 ng/mL (<0.5)
[2018-08-13 22:43] VITALS: BP 112/59; PULSE 80; RESP 19; O2SAT 96
[2018-08-13 23:01] VITALS: BP 112/59; PULSE 75; RESP 22; O2SAT 96
== END 2018-08-13 23:02 | disposition home or self-care (01) ==
PROVIDERS: Emergency Provider Emergency Medicine; PCP Physician Assistant
DX: L03.116 Cellulitis of left lower limb (principal)
CPT/HCPCS: 36415; 36591; 80053; 83605; 84145; 85025; 87040; 96365; 99283; 99284

== ENCOUNTER 2018-08-28 00:14 | Emergency (ER) | payer OTHER, SELFPAY ==
[2018-06-24 16:22] VITALS: BMI 35.2
[2018-08-28 00:31] VITALS: BP 111/65; PULSE 86; RESP 19; TEMP 36.8; O2SAT 96; BMI 27.3
--- NOTE | 2018-08-28 00:35 | ED_ITS ---
HPI - Wound/Laceration General Chief Complaint: Wound/Laceration Stated Complaint: feels weird like she's getting sepsis again Time Seen by Provider: 08/28/18 00:19 Source: patient and family Mode of arrival: ambulatory Limitations: no limitations History of Present Illness HPI narrative: 68-year-old Daily smoker presents with multiple family members for evaluation of a recurrence of infection of her left lower extremity. She has had ongoing trouble since an initial scratch by CT for which she was seen June 09, 2018 here. She was admitted on 06/24/18 for sepsis, presumably due to cellulitis of her leg. She responded well to Bactrim. She has been seen by Wound Care for this. She was seen here on 08/13/18 for the same and had thorough evaluation and had normal labs. She had some oozing of her wound and was placed on Keflex. Admittedly it is looking better and there is less redness and no longer any drainage. She does feel like it is flairing up again. She denies nausea, vomiting, fever or chills. She's had no runny nose, sore throat, cough, chest pain, or SOB Related Data Home Medications Medication Instructions Recorded Confirmed atorvastatin 20 mg PO DAILY #0 03/16/10 06/24/18 bupropion HCl 150 mg PO BID #0 03/16/10 06/24/18 cholecalciferol (vitamin D3) 1,000 unit PO DAILY #0 03/16/10 06/24/18 [Vitamin D3] escitalopram oxalate [Lexapro] 2 tab PO DAILY #0 03/16/10 06/24/18 levothyroxine 112 mcg PO DAILY #0 03/16/10 06/24/18 morphine 15 mg PO Q8H #0 03/16/10 06/24/18 multivitamin 1 tab PO DAILY #0 03/16/10 06/24/18 olanzapine 2.5 mg PO BEDTIME #0 03/16/10 06/24/18 omeprazole 20 mg PO Q DAY #0 03/16/10 06/24/18 cevimeline 1 cap PO TID 06/24/18 06/24/18 cyclobenzaprine 0.5 - 1 tab PO TID PRN 06/24/18 06/24/18 furosemide 1 tab PO DAILY PRN 06/24/18 06/24/18 insulin aspart U-100 [Novolog 4 - 6 unit SUBCUT AC 06/24/18 06/24/18 Flexpen U-100 Insulin] lisinopril 2.5 mg PO DAILY 06/24/18 06/24/18 Previous Rx's Medication Instructions Recorded gabapentin 1,200 mg PO BEDTIME #0 tab 06/27/18 hydrocodone-acetaminophen 1 tab PO TID #0 tab 06/27/18 insulin glargine [Lantus Solostar 50 unit SUBCUT BEDTIME #0 ml 06/27/18 U-100 Insulin] ondansetron 4 mg PO TID PRN #10 tab 06/27/18 sulfamethoxazole-trimethoprim 1 tab PO BID #14 tab 06/27/18 [Bactrim DS] clindamycin HCl 300 mg PO QID #40 cap 06/28/18 cephalexin [Keflex] 500 mg PO TID #21 cap 08/13/18 doxycycline hyclate 100 mg PO BID #20 tab 08/28/18 Allergies Allergy/AdvReac Type Severity Reaction Status Date / Time No Known Drug Allergies Allergy Verified 08/13/18 21:06 Review of Systems Constitutional Denies chills, Denies fever(s), Denies lethargy and Denies weakness Eyes Denies change in vision, Denies eye discharge, Denies irritation and Denies loss of vision ENT Ears, Nose, Mouth, and Throat: Denies change in voice, Denies neck pain and Denies sore throat Cardiovascular Denies chest pain, Denies irregular heart rhythm, Denies lightheadedness, Denies palpitations, Denies dyspnea, Denies dyspnea on exertion and Denies orthopnea Respiratory Denies cough, Denies dyspnea, Denies dyspnea on exertion and Denies wheezing Gastrointestinal Gastrointestinal: Denies abdominal pain, Denies change in bowel habits, Denies diarrhea, Denies nausea and Denies vomiting Genitourinary Denies hematuria, Denies flank pain, Denies urinary incontinence and Denies urinary urgency Musculoskeletal Denies neck pain Integumentary/Breasts Denies pruritus, Reports erythema, Denies rash, Reports skin swelling, Reports sores and Reports wounds Neurologic Denies confusion, Denies loss of vision and Denies weakness Psychiatric Denies anxiety, Denies confusion, Denies depression, Denies homicidal ideation and Denies suicidal ideation Endocrine Denies palpitations Hematologic/Lymphatic Denies easy bruising Allergic/Immunologic Denies wheezing [facility] Medical History Depression (Acute) Diabetes (Acute) Fibromyalgia (Acute) Fibromyalgia (Acute) GERD (gastroesophageal reflux disease) (Acute) Meningioma (Acute) Restless leg syndrome (Acute) Sjogren's disease (Acute) Sleep apnea (Acute) Spinal stenosis, lumbar (Acute) Surgical History H/O total hysterectomy (Acute) Social History household members: spouse and children Smoking Status: Current every day smoker Exam Narrative Exam Narrative: GENERAL: 68F, pleasant, resting comfortably, no obvious significant distress. AOx3. GCS 15 HEAD: Atraumatic. Normocephalic. No temporal or scalp tenderness. EYES: Pupils equal round and reactive. Extraocular motions intact. No scleral icterus. No injection or drainage. ENT: Nose without bleeding, purulent drainage or septal hematoma. Throat without erythema, tonsillar hypertrophy or exudate. Uvula midline. Airway patent. NECK: Trachea midline. No JVD or lymphadenopathy. Supple, nontender, no meningeal signs. CARDIOVASCULAR: Regular rate and rhythm without murmurs, gallops, or rubs. RESPIRATORY: Clear to auscultation. Breath sounds equal bilaterally. No wheezes , rales, or rhonchi. GASTROINTESTINAL: Abdomen soft, non-tender, nondistended. No hepato-splenomegaly , or palpable masses. No guarding. EXTREMITIES: No clubbing, cyanosis, or edema. No joint tenderness, effusion, or edema noted. BACK: Nontender without deformity or crepitance. No flank tenderness. NEURO: AOx3. SKIN: mild anterior erythema, two healing 2cm scabs on anterior thomas. No fluctuance or induration. No circumferential involvement. Distal NV in tact Initial Vital Signs Initial Vital Signs: Vital Signs Temperature 98.3 F 08/28/18 00:31 Pulse Rate 86 08/28/18 00:31 Respiratory Rate 19 08/28/18 00:31 Blood Pressure 111/65 08/28/18 00:31 Pulse Oximetry 96 08/28/18 00:31 Course Orders Ordered: ED Orders 08/28/18 00:39 Basic Metabolic Panel Stat Bilirubin Total Stat C-Reactive Protein Quant Stat Complete Blood Count AUTO DIFF Stat Erythrocyte Sedimentation Rate Stat Partial Thromboplastin Time Stat Procalcitonin Stat Prothrombin Time INR Stat 08/28/18 00:45 Blood Culture Stat Lactate (Lactic Acid) Stat 08/28/18 01:29 Urine Microscopic Stat Discontinued Medications Doxycycline Hyclate (Vibramycin) 100 mg PO NOW ONE Stop: 08/28/18 01:28 Vital Signs - 8 hr 08/28/18 00:31 Temperature 98.3 F Pulse Rate 86 Respiratory Rate 19 Blood Pressure 111/65 Pulse Oximetry 96 MDM - Wound/Laceration Differential Diagnosis Differential diagnosis: Likely abscess, abrasion and other Medical Records Attestation: I reviewed the patient's medical records. Lab Data Attestation: I reviewed the patient's lab results. Result diagrams: 08/28/18 00:39 08/28/18 00:39 Lab Results 08/28/18 08/28/18 08/28/18 Range/Units 00:39 00:39 00:39 WBC 4.3 L (4.5-11.0) X10^3/uL RBC 4.76 (4.0-5.2) X10^6/uL Hgb 13.9 (12.0-16.0) g/dL Hct 41.2 (36-46) % MCV 86.5 (80-100) fL MCH 29.2 (26-34) PG MCHC 33.8 (30-36) % RDW 13.6 (11.6-14.8) % Plt Count 193 (150-400) X10^3/uL Neut % (Auto) 43.0 L (50-75) % Lymph % (Auto) 40.9 H (25-40) % [place] % (Auto) 9.8 (3-14) % Eos % (Auto) 6.0 H (2-4) % Baso % (Auto) 0.3 (0-2) % Neut # (Auto) 1800 (5075-2569) /uL Lymph # (Auto) 1800 (6734-5015) /uL [place] # (Auto) 400 (0-900) /uL Eos # (Auto) 300 (0-450) /uL Baso # (Auto) 0 (0-100) /uL ESR 11 (0-20) MM/HR PT 11.2 (10.1-12.7) SECONDS INR 1.0 (0.9-1.3) APTT 34 D (26.4-36.2) SECONDS Sodium 137 (137-145) mmol/L Potassium 4.6 (3.4-5.1) mmol/L Chloride 97 L (98-107) mmol/L Carbon Dioxide 31 (22-32) mmol/L BUN 18 H (7-17) mg/dL Creatinine 0.50 L (0.52-1.04) mg/dL Estimated GFR > 60.0 (>60) mL/min BUN/Creatinine Ratio 36.0 H (6-22) Glucose 233 H (80-110) mg/dL Lactate (0.7-2.1) mmol/L Calcium 9.3 (8.4-10.2) mg/dL Total Bilirubin 0.5 (0.2-1.3) mg/dL C-Reactive Protein < 0.5 (<1.0) mg/dL 08/28/18 Range/Units 00:45 WBC (4.5-11.0) X10^3/uL RBC (4.0-5.2) X10^6/uL Hgb (12.0-16.0) g/dL Hct (36-46) % MCV (80-100) fL MCH (26-34) PG MCHC (30-36) % RDW (11.6-14.8) % Plt Count (150-400) X10^3/uL Neut % (Auto) (50-75) % Lymph % (Auto) (25-40) % [place] % (Auto) (3-14) % Eos % (Auto) (2-4) % Baso % (Auto) (0-2) % Neut # (Auto) (6965-1896) /uL Lymph # (Auto) (6672-9734) /uL [place] # (Auto) (0-900) /uL Eos # (Auto) (0-450) /uL Baso # (Auto) (0-100) /uL ESR (0-20) MM/HR PT (10.1-12.7) SECONDS INR (0.9-1.3) APTT (26.4-36.2) SECONDS Sodium (137-145) mmol/L Potassium (3.4-5.1) mmol/L Chloride (98-107) mmol/L Carbon Dioxide (22-32) mmol/L BUN (7-17) mg/dL Creatinine (0.52-1.04) mg/dL Estimated GFR (>60) mL/min BUN/Creatinine Ratio (6-22) Glucose (80-110) mg/dL Lactate 1.0 (0.7-2.1) mmol/L Calcium (8.4-10.2) mg/dL Total Bilirubin (0.2-1.3) mg/dL C-Reactive Protein (<1.0) mg/dL Discharge Plan Departure Patient Disposition: Home Clinical Impression: Cellulitis of leg, Acute UTI Instructions: DI for Cellulitis -- Adult Activity Restrictions/Additional Instructions: *You have been diagnosed with [left leg cellulitis ] *What to do: *Take medications as directed: Prescription electronically transmitted to [facility] in [place] based on your prior preferences. *Follow up with your primary care provider in 2-3 days, call for an appointment. Let them know you were seen in the Emergency Department and that we ask that you be seen in follow up *Return to ER if you should have any new, worsening or concerning symptoms , such as [fever, chills, shortness of breath, vomiting, or other bothersome symptoms ] Prescriptions: New doxycycline hyclate 100 mg tablet 100 mg PO BID Qty: 20 RF: 0 No Action morphine 15 MG tablet 15 mg PO Q8H Qty: 0 RF: 0 multivitamin Tablet 1 tab PO DAILY Qty: 0 RF: 0 cholecalciferol (vitamin D3) [Vitamin D3] 1,000 unit Tablet 1,000 unit PO DAILY Qty: 0 RF: 0 atorvastatin 20 mg Tablet 20 mg PO DAILY Qty: 0 RF: 0 levothyroxine 112 mcg Capsule 112 mcg PO DAILY Qty: 0 RF: 0 bupropion HCl 150 mg Tablet Sustained-Release 12 Hr 150 mg PO BID Qty: 0 RF: 0 olanzapine 2.5 mg Tablet 2.5 mg PO BEDTIME Qty: 0 RF: 0 omeprazole 20 mg Capsule,Delayed Release(Dr/Ec) 20 mg PO Q DAY Qty: 0 RF: 0 escitalopram oxalate [Lexapro] 20 mg Tablet 2 tab PO DAILY Qty: 0 RF: 0 cyclobenzaprine 10 mg Tablet 0.5 - 1 tab PO TID PRN (Reason: Muscle Spasm) RF: 0 cevimeline 30 mg Capsule 1 cap PO TID RF: 0 furosemide 20 mg Tablet 1 tab PO DAILY PRN (Reason: edema) RF: 0 lisinopril 2.5 mg Tablet 2.5 mg PO DAILY RF: 0 insulin aspart U-100 [Novolog Flexpen U-100 Insulin] 100 unit/mL Insulin Pen 4 - 6 unit SUBCUT AC RF: 0 hydrocodone-acetaminophen 5-325 mg Tablet 1 tab PO TID Qty: 0 RF: 0 insulin glargine [Lantus Solostar U-100 Insulin] 100 unit/mL (3 mL) Insulin Pen 50 unit SUBCUT BEDTIME Qty: 0 RF: 0 gabapentin 600 mg Tablet 1,200 mg PO BEDTIME Qty: 0 RF: 0 ondansetron 4 mg tablet,disintegrating 4 mg PO TID PRN (Reason: nausea and vomiting) Qty: 10 RF: 0 sulfamethoxazole-trimethoprim [Bactrim DS] 800-160 mg tablet 1 tab PO BID Qty: 14 RF: 0 clindamycin HCl 300 mg capsule 300 mg PO QID Qty: 40 RF: 0 cephalexin [Keflex] 500 mg capsule 500 mg PO TID Qty: 21 RF: 0
[2018-08-28 01:00] LABS: Add Manual Diff / Slide Review NO; Basophils Absolute Auto 0 /uL (0-100); Basophils Percent Auto 0.3 % (0-2); Eosinophils Absolute Auto 300 /uL (0-450); Hematocrit 41.2 % (36-46); Hemoglobin 13.9 g/dL (12.0-16.0); Lymphocytes Absolute Auto 1800 /uL (1100-4500); Lymphocytes Percent Auto 40.9 % (25-40); Mean Corpuscular HGB Conc 33.8 % (30-36); Mean Corpuscular Hemoglobin 29.2 PG (26-34); Mean Corpuscular Volume 86.5 fL (80-100); Monocytes Absolute Auto 400 /uL (0-900); Monocytes Percent Auto 9.8 % (3-14); Neutrophils Absolute Auto 1800 /uL (1500-7000); Platelet Count 193 X10^3/uL (150-400); Red Blood Cell Count 4.76 X10^6/uL (4.0-5.2); Red Cell Distribution Width 13.6 % (11.6-14.8); White Blood Cell Count 4.3 X10^3/uL (4.5-11.0)
[2018-08-28 01:03] LABS: Prothrombin Time 11.2 SECONDS (10.1-12.7)
--- NOTE | 2018-08-28 01:03 | PC.NURSE ---
Asked pt if she would be able to provide urine specimen, explained reasoning for specimen, pt states she does not need to void at this time.
[2018-08-28 01:06] LABS: PTT Partial Thromboplastin Tim 34 SECONDS (26.4-36.2)
[2018-08-28 01:12] LABS: Bilirubin Total 0.5 mg/dL (0.2-1.3); Blood Urea Nitrogen 18 mg/dL (7-17); Calcium 9.3 mg/dL (8.4-10.2); Carbon Dioxide 31 mmol/L (22-32); Chloride 97 mmol/L (98-107); Estimated Glomerular Filt Rate > 60.0 mL/min (>60); Glucose 233 mg/dL (80-110); HEMOLYSIS < 15 (0-50); Potassium 4.6 mmol/L (3.4-5.1); Sodium 137 mmol/L (137-145)
[2018-08-28 01:14] LABS: C-Reactive Protein Quant < 0.5 mg/dL (<1.0)
[2018-08-28 01:27] LABS: Erythrocyte Sedimentation Rate 11 MM/HR (0-20)
[2018-08-28] MEDS: DOXYCYCLINE HYCLATE 100 MG TABLET PO (01:42)
[2018-08-28 01:45] LABS: Bacteria Urine None Seen; RBC Urine None Seen (0-5/HPF)
[2018-08-28 01:48] LABS: Amorphous Sediment Urine 2+; Squamous Epithelial Cell Urine 0-1 /HPF; WBC Urine 0-1/HPF (0-5/HPF)
[2018-08-28 01:50] LABS: Procalcitonin < 0.05 ng/mL (<0.5)
[2018-08-28 01:53] LABS: Culture Indicated Urine Specimen Cultured
[2018-08-28 02:12] VITALS: BP 105/62; PULSE 81; RESP 12; TEMP 36.7; O2SAT 97
--- NOTE | 2018-09-01 16:04 | PC.NURSE ---
follow up call. pt states unable to f/u with pcp so pt went to walk in clinic [facility] and states she is doing well checking her temperature twice a day to be sure.
== END 2018-08-28 02:10 | disposition home or self-care (01) ==
PROVIDERS: Emergency Provider Emergency Medicine; PCP Physician Assistant
DX: L03.116 Cellulitis of left lower limb (principal); N39.0 Urinary tract infection, site not specified
CPT/HCPCS: 36415; 80048; 81003; 81015; 82247; 83605; 84145; 85025; 85610; 85651; 85730; 86140; 87040; 87086; 99283

== ENCOUNTER → 2018-09-17 13:09 | Outpatient (CLI) | payer OTHER, SELFPAY ==
[2018-06-24 16:22] VITALS: BMI 35.2
--- NOTE | 2018-09-17 | DI.RAD.S_ITS ---
PROCEDURE: XR LUMBAR SPINE 2-3V INDICATIONS: ABNORMAL WEIGHT LOSS TECHNIQUE: 2 views of the lumbar spine were acquired. COMPARISON: None. FINDINGS: Bones: 5 [id number] vertebrae are present. There is normal bony alignment. No vertebral body compression fractures. No suspicious bony lesions. Trace osteophytosis and facet sclerosis is present within the lumbar spine. Soft tissues: Surgical clips are projected over the abdominal aorta. Overlying bowel gas pattern is normal. No suspicious soft tissue calcifications. IMPRESSION: Mild degenerative change. Dictated by: Muriel Crocker M.D. on 09/17/2018 at 14:04 Approved by: Muriel Crocker M.D. on 09/17/2018 at 14:04
--- NOTE | 2018-09-17 | DI.RAD.S_ITS ---
PROCEDURE: XR THORACIC SPINE 2V INDICATIONS: ABNORMAL WEIGHT LOSS TECHNIQUE: 2 views of the thoracic spine were acquired. COMPARISON: None. FINDINGS: Bones: No fractures or dislocations. No suspicious bony lesions. 12 pairs of ribs are noted, and appear intact where visualized. Soft tissues: No paravertebral stripe thickening. 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 Dictated by: Weston Paulson M.D. on 09/17/2018 at 13:49 Approved by: Weston Paulson M.D. on 09/17/2018 at 13:50
--- NOTE | 2018-09-17 | DI.CT.S_ITS ---
PROCEDURE: CT ABDOMEN PELVIS W CON INDICATIONS: ABNORMAL WEIGHT LOSS TECHNIQUE: After the administration of oral and intravenous contrast, 5 mm thick sections acquired from the diaphragms to the symphysis. 5 mm thick coronal and sagittal reformats were performed. For radiation dose reduction, the following was used: automated exposure control, adjustment of mA and/or kV according to patient size. COMPARISON: [facility], CT, ABDOMEN/PELVIS WITH CONTRAST, 04/10/2009, 7:51. FINDINGS: Image quality: Excellent. ABDOMEN: Lung bases: Lung bases are clear except for mild posterior atelectasis. Heart size is normal. Solid organs: Liver is normal in size and enhancement is intrahepatic and extrahepatic biliary distention with the common duct measuring up to 14 mm above the pancreatic head and duct measuring 1 cm within the pancreatic head, and the duct tapers to the ampulla area without definite malignant appearing mass with potential for distal common duct mass as the underlying cause. A calcified ductal stone is not seen.. Gallbladder appears hydropic, without calcified gallstones within. Pancreas enhances normally. Spleen is normal in size and enhancement. No adrenal nodules. Kidneys are normal in size and enhancement, without hydronephrosis. Peritoneum and bowel: Stomach, small bowel, and colon loops are normal in caliber and wall thickness. No free fluid or air. Nodes and vessels: No mesenteric adenopathy. A prominence of retroperitoneal nodes is noted at the axial level of the mid kidneys, with the largest node at the aortocaval space measuring up to 1.1 x 1.6 cm. Aorta and inferior vena cava are normal in caliber. Miscellaneous: No ventral hernias. Several surgical clips are noted at the right periaortic retroperitoneum. The pattern of mildly increased number of small lymph nodes is noted to extend inferiorly from the periaortic retroperitoneum of the abdomen into the superior left hemipelvis along the common iliac node chain. PELVIS: Genitourinary: Bladder wall thickness is normal. Prior hysterectomy. Miscellaneous: No inguinal hernias or deep pelvic adenopathy. There is, however, a 2 x 4.1 cm right groin enlarged node in an area previously normal. Several slightly prominent nodes are seen in the same area on the left but none on the left are enlarged to the degree of likelihood of malignant etiology. Bones: No suspicious bony lesions. No vertebral body compression fractures. IMPRESSION: Abnormal finding of significant intrahepatic and extrahepatic biliary distention. Etiology is uncertain but this is associated with a hydropic appearance of the gallbladder. This raises concern for presence of the distal common duct stone or mass. The pancreatic duct itself is not dilated. A definite pancreatic head mass is not seen. Therefore, MR cholangiogram is recommended to more thoroughly assess for distal common duct malignancy or calculus. 2. There is an increased number of small nodes in the periaortic retroperitoneum and several nodes that are just at the upper limits of normal. Early metastatic disease is considered less likely than reactive adenopathy in this clinical circumstance. 3. Abnormally enlarged right groin node, measuring up to 2.0 x 4.1 cm. This node had been normal in appearance in March of 2009. The study shows no additional site of lymph node enlargement of this degree but a note of this size may warrant surgical excisional biopsy. Dictated by: Weston Paulson M.D. on 09/17/2018 at 15:12 Approved by: Weston Paulson M.D. on 09/17/2018 at 15:31
== END ==
PROVIDERS: PCP Physician Assistant; Visit Provider Physician Assistant
DX: R63.4 Abnormal weight loss (principal); K83.8 Other specified diseases of biliary tract; K66.9 Disorder of peritoneum, unspecified; M51.34 Other intervertebral disc degeneration, thoracic region; M47.816 Spondylosis without myelopathy or radiculopathy, lumbar region
CPT/HCPCS: 72070; 72100; 74177; Q9967

== ENCOUNTER → 2018-09-21 13:29 | Outpatient (CLI) | payer OTHER, SELFPAY ==
[2018-06-24 16:22] VITALS: BMI 35.2
== END ==
PROVIDERS: PCP Physician Assistant; Visit Provider Physician Assistant
DX: R63.4 Abnormal weight loss (principal); R19.4 Change in bowel habit
CPT/HCPCS: 87177; 87205

== ENCOUNTER → 2018-09-23 06:48 | Outpatient (CLI) | payer OTHER, SELFPAY ==
[2018-06-24 16:22] VITALS: BMI 35.2
--- NOTE | 2018-09-23 | DI.MRI.S_ITS ---
PROCEDURE: MR ABDOMEN WO CON INDICATIONS: Other specified diseases of biliary tract,Abnormal TECHNIQUE: Coronal HASTE through the abdomen, axial 2-D FLASH in- and [id number], and breath-hold T2 FSE with fat saturation through the biliary system and pancreas. Oblique coronal and axial thin-slice HASTE, radial thick-slab HASTE centered on the extrahepatic bile ducts. Intravenous secretin: Not requested. COMPARISON: [facility], CT, CT ABDOMEN PELVIS W CON, 09/17/2018, 14:08. FINDINGS: Image quality: Excellent. Pancreas and biliary system: Intra- and extra-hepatic biliary ducts are moderately dilated, and the common hepatic duct has a maximal caliber of 1.2 cm. Within the common hepatic duct a 5 mm calculus is visualized, not currently obstructive. This is best seen centered on series 8 image 11. There is a small amount of sludge within the gallbladder lumen at the neck of the gallbladder, and several small calculi are present within the gallbladder lumen. Pancreas is normal in morphology, without adjacent soft tissue edema. Pancreatic duct is normal in caliber, without developmental anomalies. Gallbladder is free of mass or inflammation. Other solid organs: Liver is normal in size. Spleen is normal in size. No adrenal nodules. Both kidneys are normal in size, without hydronephrosis. Nodes and vessels: No retroperitoneal or mesenteric adenopathy by size criteria. Aorta and inferior vena cava are normal in size. Bowel and peritoneum: Unenhanced bowel loops are normal in caliber. No free fluid. Lung bases: No basal pleural effusions. Heart size is normal. Bones and soft tissues: No ventral hernias. Bone marrow is of normal overall signal. IMPRESSION: 1. The intra-and extrahepatic bile ducts are abnormally dilated, as was previously identified during CT scanning 09/17/18. The common hepatic duct measures up to 1.2 cm in maximal axial dimension, the gallbladder is not distended, and a malignant appearing mass lesion is not found. 2. Within the gallbladder lumen there is both sludge and small calculi, which by CT scanning were not identifiable and therefore not significantly calcified. Additionally, at least one common bile duct calculus is found measuring up to 5 mm, currently not obstructive. A definite distal common duct calculus is not seen. 3. Recommend gastroenterology consultation for consideration of endoscopic retrograde cholangiogram procedure. Please correlate with liver function tests. Acute pancreatitis at this time is not seen. Dictated by: Weston Paulson M.D. on 09/23/2018 at 11:08 Approved by: Weston Paulson M.D. on 09/23/2018 at 11:23
--- NOTE | 2018-09-23 | DI.CT.S_ITS ---
PROCEDURE: CT CHEST W CON INDICATIONS: Other specified diseases of biliary tract,Abnormal weight loss. Personal history of nicotine dependence. TECHNIQUE: After the administration of intravenous contrast, 5 mm thick sections acquired from the pulmonary apices to the posterior costophrenic angles. 7 mm thick coronal and sagittal MIP reformats were acquired. For radiation dose reduction, the following was used: automated exposure control, adjustment of mA and/or kV according to patient size. COMPARISON: [facility], CR, CHEST 2 VIEW, 12/27/2012, 16:58. [facility], CT, CT ABDOMEN PELVIS W CON, 09/17/2018, 14:08. FINDINGS: Image quality: Excellent. Lungs and pleura: No acute air space opacities. No pleural effusions or pneumothorax. Central and peripheral airways are patent and normal in caliber. Mediastinum: Heart size is normal. No pericardial effusion. Borderline prominent mediastinal lymph nodes are seen. There is a subcarinal lymph node seen that measures 18 x 9 mm. Several right paratracheal lymph nodes are seen, including a 13 by 8 mm lymph node and a 13 x 9 mm lymph node. No definitely enlarged perihilar lymph nodes are seen. Thoracic aorta and central pulmonary arteries are normal in size. Esophagus is normal in caliber. No hiatal hernia. Bones and chest wall: No suspicious bony lesions. Age-appropriate bony degenerative changes are seen. Mild dextroconvex scoliotic curvature is seen. No vertebral body compression fractures. No axillary or supraclavicular adenopathy by size criteria. Thyroid gland demonstrates no significant CT abnormality. Abdomen: Visualized upper abdominal solid organs appear normal. Upper abdominal bowel loops are normal in caliber. IMPRESSION: No pulmonary nodules or masses are seen. Borderline prominent mediastinal lymph nodes are seen. Differential diagnosis includes reactive nodes and neoplastic lymph nodes. Dictated by: Matt Richardson M.D. on 09/23/2018 at 8:05 Approved by: Matt Richardson M.D. on 09/23/2018 at 8:10
[2018-09-23 07:23] LABS: BUN Creatinine Ratio 26.7 (6-22); Blood Urea Nitrogen 16 mg/dL (7-17); Estimated Glomerular Filt Rate > 60.0 mL/min (>60)
== END ==
PROVIDERS: PCP Physician Assistant; Visit Provider Physician Assistant
DX: K83.8 Other specified diseases of biliary tract (principal); K80.70 Calculus of gallbladder and bile duct without cholecystitis without obstruction; R63.4 Abnormal weight loss; Z87.891 Personal history of nicotine dependence
CPT/HCPCS: 36415; 71260; 74181; 82565; 84520; Q9967

== ENCOUNTER 2018-10-16 19:18 | Emergency (ER) | payer OTHER, SELFPAY ==
[2018-06-24 16:22] VITALS: BMI 35.2
[2018-10-16 19:33] VITALS: BP 120/67; PULSE 77; RESP 18; TEMP 36.6; O2SAT 99
--- NOTE | 2018-10-16 20:21 | PC.NURSE ---
Pt has serous-like drainage coming from a spot on LLE, Pt has been receiving treatment for this for about 4 month.
--- NOTE | 2018-10-16 21:18 | ED_ITS ---
HPI - Skin/Abscess/Foreign Bdy <Azra Alfaro PA-C - Last Filed: 10/16/18 21:54> General Chief complaint: Skin/Abscess/Foreign Body Stated complaint: CELLULITIS OF LEFT LEG FLUID COMING OUT OF IT Time Seen by Provider: 10/16/18 20:57 Source: patient Mode of arrival: ambulatory Limitations: no limitations History of Present Illness HPI narrative: This 68-year-old female has chronic venous stasis swelling of both lower extremities, worse on the left. She states that she has had infection of this intermittently and last week was started on clindamycin 300 mg q.i.d. by her PCP (She states today is day 3). she states that she came in because she is noticing clear fluid weeping from the leg today. There is a yellow tinge on her socks as well. She states this is thin, nonodorous, she is not noticing any pus draining. She denies any new pain. She denies any new fever and states she is otherwise feeling well. Legs are not more swollen than usual. No respiratory symptoms. She states that her legs tend to be tender so she cannot tolerate compression stockings but she does have some mild ones at home that she can wear. Related Data Home Medications Medication Instructions Recorded Confirmed atorvastatin 20 mg PO DAILY #0 03/16/10 06/24/18 bupropion HCl 150 mg PO BID #0 03/16/10 06/24/18 cholecalciferol (vitamin D3) 1,000 unit PO DAILY #0 03/16/10 06/24/18 [Vitamin D3] escitalopram oxalate [Lexapro] 2 tab PO DAILY #0 03/16/10 06/24/18 levothyroxine 112 mcg PO DAILY #0 03/16/10 06/24/18 morphine 15 mg PO Q8H #0 03/16/10 06/24/18 multivitamin 1 tab PO DAILY #0 03/16/10 06/24/18 olanzapine 2.5 mg PO BEDTIME #0 03/16/10 06/24/18 omeprazole 20 mg PO Q DAY #0 03/16/10 06/24/18 cevimeline 1 cap PO TID 06/24/18 06/24/18 cyclobenzaprine 0.5 - 1 tab PO TID PRN 06/24/18 06/24/18 furosemide 1 tab PO DAILY PRN 06/24/18 06/24/18 insulin aspart U-100 [Novolog 4 - 6 unit SUBCUT AC 06/24/18 06/24/18 Flexpen U-100 Insulin] lisinopril 2.5 mg PO DAILY 06/24/18 06/24/18 Previous Rx's Medication Instructions Recorded gabapentin 1,200 mg PO BEDTIME #0 tab 06/27/18 hydrocodone-acetaminophen 1 tab PO TID #0 tab 06/27/18 insulin glargine [Lantus Solostar 50 unit SUBCUT BEDTIME #0 ml 06/27/18 U-100 Insulin] ondansetron 4 mg PO TID PRN #10 tab 06/27/18 sulfamethoxazole-trimethoprim 1 tab PO BID #14 tab 06/27/18 [Bactrim DS] clindamycin HCl 300 mg PO QID #40 cap 06/28/18 cephalexin [Keflex] 500 mg PO TID #21 cap 08/13/18 doxycycline hyclate 100 mg PO BID #20 tab 08/28/18 Allergies Allergy/AdvReac Type Severity Reaction Status Date / Time No Known Drug Allergies Allergy Verified 10/16/18 19:40 Review of Systems <Azra Alfaro PA-C - Last Filed: 10/16/18 21:54> Review of Systems ROS Unobtainable: All systems reviewed & are unremarkable except as noted in HPI and below PFSH <Azra Alfaro PA-C - Last Filed: 10/16/18 21:54> Medical History Fibromyalgia (Acute) Depression (Chronic) Diabetes (Chronic) Fibromyalgia (Chronic) GERD (gastroesophageal reflux disease) (Chronic) Hyperlipidemia (Chronic) Hypothyroidism (Chronic) Meningioma (Chronic) Restless leg syndrome (Chronic) Sjogren's disease (Chronic) Sleep apnea (Chronic) Spinal stenosis, lumbar (Chronic) Venous stasis dermatitis of both lower extremities (Chronic) Surgical History H/O total hysterectomy (Resolved) Social History household members: spouse and children Smoking Status: Current every day smoker Social History household members: spouse and children Smoking Status: Current every day smoker Exam <JAUN Hernandez Last Filed: 10/16/18 21:54> Narrative Exam Narrative: GENERAL APPEARANCE: Patient sitting comfortably, in no distress. NECK/THYROID: Neck supple LUNGS: Clear to auscultation bilaterally. HEART: Regular rate and rhythm without murmur, normal S1, S2, no S3 or S4. EXTREMITIES: No cyanosis, moderate bilateral lower extremity edema with venous stasis skin changes, more pronounced on the left . No calf tenderness NEUROLOGIC: Alert and oriented, normal speech and coordination. DERMATOLOGIC: venous stasis skin changes of bilateral lower extremities, more pronounced on the left. There is darker, patchy erythema on the left. There is some yellow crusting on the thomas, and multiple small areas of clear serous fluid draining. There is thin yellow fluid on her socks. Initial Vital Signs Initial Vital Signs: Vital Signs Temperature 97.8 F 10/16/18 19:33 Pulse Rate 77 10/16/18 19:33 Respiratory Rate 18 10/16/18 19:33 Blood Pressure 120/67 10/16/18 19:33 Pulse Oximetry 99 10/16/18 19:33 <Montana Jerome DO - Last Filed: 10/17/18 04:47> Initial Vital Signs Initial Vital Signs: Vital Signs Temperature 97.8 F 10/16/18 19:33 Pulse Rate 77 10/16/18 19:33 Respiratory Rate 18 10/16/18 19:33 Blood Pressure 120/67 10/16/18 19:33 Pulse Oximetry 99 10/16/18 19:33 Course <JAUN Hernandez Last Filed: 10/16/18 21:54> Vital Signs - 8 hr 10/16/18 21:33 Pulse Rate 72 Respiratory Rate 16 Blood Pressure [Right Arm] 99/64 Pulse Oximetry 98 <Montana Jerome DO - Last Filed: 10/17/18 04:47> Vital Signs - 8 hr 10/16/18 21:33 Pulse Rate 72 Respiratory Rate 16 Blood Pressure [Right Arm] 99/64 Pulse Oximetry 98 Discharge Plan Departure Patient Disposition: Home Clinical Impression: Venous stasis dermatitis of both lower extremities Cellulitis of leg Qualifiers: Laterality: left Qualified Code(s): L03.116 - Cellulitis of left lower limb Discharge Date/Time: 10/16/18 21:35 Interventions: ED Discharge Assessment Last Done: 10/16/18 21:39 Instructions: DI for Cellulitis -- Adult, DI for Edema Due to Venous Stasis Activity Restrictions/Additional Instructions: the weeping from your leg does not appear related to the infection (it is called serous fluid and does not look infectious, like pus). I believe this is from the pressure and swelling caused by your venous stasis causing the fluid to drain through little skin breaks. Please continue the antibiotic that ANGY samayoa prescribed for you. you can also use a little bit of the bacitracin that we gave you or other antibiotic on the crusty areas on your leg. We have placed a dressing tonight to help absorb the drainage. Please wear your light compression sock that you have at home at least during the day when you are up and about. Please elevate your legs above your heart as much as possible when you are sitting and resting. Return here as we talked about if you have new symptoms such as fever, acutely spreading or worsening redness or pain, or pus draining from your leg. Otherwise, follow up for recheck with ANGY Avalos next week Prescriptions: No Action morphine 15 MG tablet 15 mg PO Q8H Qty: 0 RF: 0 multivitamin Tablet 1 tab PO DAILY Qty: 0 RF: 0 cholecalciferol (vitamin D3) [Vitamin D3] 1,000 unit Tablet 1,000 unit PO DAILY Qty: 0 RF: 0 atorvastatin 20 mg Tablet 20 mg PO DAILY Qty: 0 RF: 0 levothyroxine 112 mcg Capsule 112 mcg PO DAILY Qty: 0 RF: 0 bupropion HCl 150 mg Tablet Sustained-Release 12 Hr 150 mg PO BID Qty: 0 RF: 0 olanzapine 2.5 mg Tablet 2.5 mg PO BEDTIME Qty: 0 RF: 0 omeprazole 20 mg Capsule,Delayed Release(Dr/Ec) 20 mg PO Q DAY Qty: 0 RF: 0 escitalopram oxalate [Lexapro] 20 mg Tablet 2 tab PO DAILY Qty: 0 RF: 0 cyclobenzaprine 10 mg Tablet 0.5 - 1 tab PO TID PRN (Reason: Muscle Spasm) RF: 0 cevimeline 30 mg Capsule 1 cap PO TID RF: 0 furosemide 20 mg Tablet 1 tab PO DAILY PRN (Reason: edema) RF: 0 lisinopril 2.5 mg Tablet 2.5 mg PO DAILY RF: 0 insulin aspart U-100 [Novolog Flexpen U-100 Insulin] 100 unit/mL Insulin Pen 4 - 6 unit SUBCUT AC RF: 0 hydrocodone-acetaminophen 5-325 mg Tablet 1 tab PO TID Qty: 0 RF: 0 insulin glargine [Lantus Solostar U-100 Insulin] 100 unit/mL (3 mL) Insulin Pen 50 unit SUBCUT BEDTIME Qty: 0 RF: 0 gabapentin 600 mg Tablet 1,200 mg PO BEDTIME Qty: 0 RF: 0 doxycycline hyclate 100 mg tablet 100 mg PO BID Qty: 20 RF: 0 ondansetron 4 mg tablet,disintegrating 4 mg PO TID PRN (Reason: nausea and vomiting) Qty: 10 RF: 0 sulfamethoxazole-trimethoprim [Bactrim DS] 800-160 mg tablet 1 tab PO BID Qty: 14 RF: 0 clindamycin HCl 300 mg capsule 300 mg PO QID Qty: 40 RF: 0 cephalexin [Keflex] 500 mg capsule 500 mg PO TID Qty: 21 RF: 0 Referrals: Karmen Avalos PA-C [Primary Care Provider] - <Montana Jerome DO - Last Filed: 10/17/18 04:47> Cosign ED Attending Zahra Attestation: I was immediately available in the department for consultation. Documentation has been reviewed. I agree with assessment and plan.
[2018-10-16 21:33] VITALS: BP 99/64; PULSE 72; RESP 16; O2SAT 98
== END 2018-10-16 21:35 | disposition home or self-care (01) ==
PROVIDERS: Emergency Provider Internal Medicine; PCP Physician Assistant
DX: I87.2 Venous insufficiency (chronic) (peripheral) (principal); L03.116 Cellulitis of left lower limb
CPT/HCPCS: 99282

== ENCOUNTER 2018-10-25 20:29 | Emergency (ER) | payer OTHER, SELFPAY ==
[2018-06-24 16:22] VITALS: BMI 35.2
[2018-10-25 20:32] VITALS: BP 132/58; PULSE 84; RESP 16; TEMP 36.6; O2SAT 99; BMI 27.7
--- NOTE | 2018-10-25 20:47 | ED.EXTPRO ---
HPI - Extremity Problem <Azra Alfaro PA-C - Last Filed: 10/25/18 22:24> General Chief complaint: Extremity Problem,Nontraumatic Stated complaint: CELLULITIS INFECTION Time Seen by Provider: 10/25/18 20:35 Source: patient and family Mode of arrival: ambulatory Limitations: no limitations History of Present Illness HPI Narrative: This 68-year-old female returns to ED secondary to concern for whether left lower extremity cellulitis might be worsening. She just finished a course of clindamycin and states that actually overall it has seemed better, redness has improved and not warm to touch, however it looked worse today after she got out of a warm shower and was concerned that it could be spreading again. She the states that she is worried about developing sepsis again. She has not had any fever and has otherwise been feeling well today. Apparently she talked to nurse at her PCP off who advised to come here in case she needed further testing but she was not seen at the office. She states that she is under significant stress after losing her daughter in May and then her mother last night the, but she does not feel acutely ill. She states that she is sad and has been tearful. She has not been feeling suicidal Related Data Home Medications Medication Instructions Recorded Confirmed atorvastatin 20 mg PO DAILY #0 03/16/10 06/24/18 bupropion HCl 150 mg PO BID #0 03/16/10 06/24/18 cholecalciferol (vitamin D3) 1,000 unit PO DAILY #0 03/16/10 06/24/18 [Vitamin D3] escitalopram oxalate [Lexapro] 2 tab PO DAILY #0 03/16/10 06/24/18 levothyroxine 112 mcg PO DAILY #0 03/16/10 06/24/18 morphine 15 mg PO Q8H #0 03/16/10 06/24/18 multivitamin 1 tab PO DAILY #0 03/16/10 06/24/18 olanzapine 2.5 mg PO BEDTIME #0 03/16/10 06/24/18 omeprazole 20 mg PO Q DAY #0 03/16/10 06/24/18 cevimeline 1 cap PO TID 06/24/18 06/24/18 cyclobenzaprine 0.5 - 1 tab PO TID PRN 11/08/18 11/08/18 furosemide 1 tab PO DAILY PRN 06/24/18 06/24/18 insulin aspart U-100 [Novolog 4 - 6 unit SUBCUT AC 06/24/18 06/24/18 Flexpen U-100 Insulin] lisinopril 2.5 mg PO DAILY 06/24/18 06/24/18 Previous Rx's Medication Instructions Recorded gabapentin 1,200 mg PO BEDTIME #0 tab 06/27/18 hydrocodone-acetaminophen 1 tab PO TID #0 tab 06/27/18 insulin glargine [Lantus Solostar 50 unit SUBCUT BEDTIME #0 ml 06/27/18 U-100 Insulin] ondansetron 4 mg PO TID PRN #10 tab 06/27/18 sulfamethoxazole-trimethoprim 1 tab PO BID #14 tab 06/27/18 [Bactrim DS] clindamycin HCl 300 mg PO QID #40 cap 06/28/18 cephalexin [Keflex] 500 mg PO TID #21 cap 08/13/18 doxycycline hyclate 100 mg PO BID #20 tab 08/28/18 doxycycline monohydrate 100 mg PO BID 7 Days #14 cap 10/25/18 Allergies Allergy/AdvReac Type Severity Reaction Status Date / Time No Known Drug Allergies Allergy Verified 10/16/18 19:40 Review of Systems <Azra Alfaro PA-C - Last Filed: 10/25/18 22:24> Review of Systems ROS Unobtainable: All systems reviewed & are unremarkable except as noted in HPI and below PFSH <Azra Alfaro PA-C - Last Filed: 10/25/18 22:24> Medical History Fibromyalgia (Acute) Depression (Chronic) Diabetes (Chronic) Fibromyalgia (Chronic) GERD (gastroesophageal reflux disease) (Chronic) Hyperlipidemia (Chronic) Hypothyroidism (Chronic) Meningioma (Chronic) Restless leg syndrome (Chronic) Sjogren's disease (Chronic) Sleep apnea (Chronic) Spinal stenosis, lumbar (Chronic) Venous stasis dermatitis of both lower extremities (Chronic) Surgical History H/O total hysterectomy (Resolved) Social History household members: spouse and children Smoking Status: Current every day smoker Social History household members: spouse and children Smoking Status: Current every day smoker Exam <Azra Alfaro PA-C - Last Filed: 10/25/18 22:24> Narrative Exam Narrative: GENERAL APPEARANCE: Patient sitting comfortably, in no distress. NECK/THYROID: Neck supple LUNGS: Clear to auscultation bilaterally. HEART: Regular rate and rhythm without murmur, normal S1, S2, no S3 or S4. EXTREMITIES: No cyanosis, mild bilateral lower extremity edema with venous stasis skin changes, more pronounced on the left . No calf tenderness NEUROLOGIC: Alert and oriented, normal speech and coordination. Sensation intact in the LEs. DERMATOLOGIC: venous stasis skin changes of bilateral lower extremities, more dusky on the left with central bluish venous discoloration. There is some yellow crusting on the thomas, no drainage or open areas. Moderate erythema extending proximal to the L. ankle and to the upper thomas, noncircumferential, minimally warm, nontender. Margins inked. Thickened, discolored toenails noted bilaterally Initial Vital Signs Initial Vital Signs: Vital Signs Temperature 97.9 F 10/25/18 20:32 Pulse Rate 84 10/25/18 20:32 Respiratory Rate 16 10/25/18 20:32 Blood Pressure 132/58 L 10/25/18 20:32 Pulse Oximetry 99 10/25/18 20:32 <Montana Jerome DO - Last Filed: 10/26/18 02:08> Initial Vital Signs Initial Vital Signs: Vital Signs Temperature 97.9 F 10/25/18 20:32 Pulse Rate 84 10/25/18 20:32 Respiratory Rate 16 10/25/18 20:32 Blood Pressure 132/58 L 10/25/18 20:32 Pulse Oximetry 99 10/25/18 20:32 Course <Azra Alfaro PA-C - Last Filed: 10/25/18 22:24> Orders Ordered: Discontinued Medications Doxycycline Hyclate (Vibramycin) 100 mg PO NOW ONE Stop: 10/25/18 21:10 Last Admin: 10/25/18 21:21 Dose: 100 mg Vital Signs - 8 hr 10/25/18 20:32 Temperature 97.9 F Pulse Rate 84 Respiratory Rate 16 Blood Pressure 132/58 L Pulse Oximetry 99 <Montana Jerome DO - Last Filed: 10/26/18 02:08> Orders Ordered: Discontinued Medications Doxycycline Hyclate (Vibramycin) 100 mg PO NOW ONE Stop: 10/25/18 21:10 Last Admin: 10/25/18 21:21 Dose: 100 mg Vital Signs - 8 hr 10/25/18 20:32 Temperature 97.9 F Pulse Rate 84 Respiratory Rate 16 Blood Pressure 132/58 L Pulse Oximetry 99 Discharge Plan Departure Patient Disposition: Home Clinical Impression: Cellulitis of leg Qualifiers: Laterality: left Qualified Code(s): L03.116 - Cellulitis of left lower limb Venous stasis dermatitis Qualifiers: Laterality: left Qualified Code(s): I87.2 - Venous insufficiency (chronic) (peripheral) Discharge Date/Time: 10/25/18 21:59 Interventions: ED Discharge Assessment Last Done: 10/25/18 21:59 Instructions: DI for Cellulitis -- Adult Activity Restrictions/Additional Instructions: I think that most of the redness and discoloration in your leg is due to the chronic venous stasis and congestion that we talked about. Your leg looks significantly improved from last time I saw you after the clindamycin. Since it looked a little worse this morning, we can try a different antibiotic, doxycycline for a few days and assessed your response. Please call tomorrow morning and schedule to see your PCP for follow-up later this week to recheck. You should be seen sooner if you have new symptoms such as fever, severe pain or rapidly spreading redness. I have sent the remainder of the doxycycline prescription to [facility] for you to chicken picker in the morning. I am sorry for your recent losses in your family and myself and the staff appreciate your kindness last week and today in our emergency department despite all of your stress Prescriptions: New doxycycline monohydrate 100 mg capsule 100 mg PO BID 7 Days Qty: 14 RF: 0 No Action morphine 15 MG tablet 15 mg PO Q8H Qty: 0 RF: 0 multivitamin Tablet 1 tab PO DAILY Qty: 0 RF: 0 cholecalciferol (vitamin D3) [Vitamin D3] 1,000 unit Tablet 1,000 unit PO DAILY Qty: 0 RF: 0 atorvastatin 20 mg Tablet 20 mg PO DAILY Qty: 0 RF: 0 levothyroxine 112 mcg Capsule 112 mcg PO DAILY Qty: 0 RF: 0 bupropion HCl 150 mg Tablet Sustained-Release 12 Hr 150 mg PO BID Qty: 0 RF: 0 olanzapine 2.5 mg Tablet 2.5 mg PO BEDTIME Qty: 0 RF: 0 omeprazole 20 mg Capsule,Delayed Release(Dr/Ec) 20 mg PO Q DAY Qty: 0 RF: 0 escitalopram oxalate [Lexapro] 20 mg Tablet 2 tab PO DAILY Qty: 0 RF: 0 cyclobenzaprine 10 mg Tablet 0.5 - 1 tab PO TID PRN (Reason: Muscle Spasm) RF: 0 cevimeline 30 mg Capsule 1 cap PO TID RF: 0 furosemide 20 mg Tablet 1 tab PO DAILY PRN (Reason: edema) RF: 0 lisinopril 2.5 mg Tablet 2.5 mg PO DAILY RF: 0 insulin aspart U-100 [Novolog Flexpen U-100 Insulin] 100 unit/mL Insulin Pen 4 - 6 unit SUBCUT AC RF: 0 hydrocodone-acetaminophen 5-325 mg Tablet 1 tab PO TID Qty: 0 RF: 0 insulin glargine [Lantus Solostar U-100 Insulin] 100 unit/mL (3 mL) Insulin Pen 50 unit SUBCUT BEDTIME Qty: 0 RF: 0 gabapentin 600 mg Tablet 1,200 mg PO BEDTIME Qty: 0 RF: 0 doxycycline hyclate 100 mg tablet 100 mg PO BID Qty: 20 RF: 0 ondansetron 4 mg tablet,disintegrating 4 mg PO TID PRN (Reason: nausea and vomiting) Qty: 10 RF: 0 sulfamethoxazole-trimethoprim [Bactrim DS] 800-160 mg tablet 1 tab PO BID Qty: 14 RF: 0 clindamycin HCl 300 mg capsule 300 mg PO QID Qty: 40 RF: 0 cephalexin [Keflex] 500 mg capsule 500 mg PO TID Qty: 21 RF: 0 Referrals: Karmen Avalos PA-C [Primary Care Provider] - <Montana Jerome DO - Last Filed: 10/26/18 02:08> Cosign ED Attending Zahra Attestation: I was immediately available in the department for consultation. Documentation has been reviewed. I agree with assessment and plan.
[2018-10-25] MEDS: DOXYCYCLINE HYCLATE 100 MG TABLET PO (21:21)
== END 2018-10-25 21:59 | disposition home or self-care (01) ==
PROVIDERS: Emergency Provider Internal Medicine; PCP Physician Assistant
DX: L03.116 Cellulitis of left lower limb (principal); I87.2 Venous insufficiency (chronic) (peripheral)
CPT/HCPCS: 99282; 99283

== ENCOUNTER 2018-12-26 20:32 | Emergency (ER) | payer OTHER, SELFPAY ==
[2018-06-24 16:22] VITALS: BMI 35.2
[2018-12-26 20:39] VITALS: BP 136/64; PULSE 83; RESP 16; TEMP 36.6; O2SAT 100; BMI 27.3
[2018-12-26 21:05] VITALS: BP 126/54; PULSE 82; RESP 16; O2SAT 100
--- NOTE | 2018-12-26 21:05 | ED.SKABFB ---
HPI - Skin/Abscess/Foreign Bdy General Chief complaint: Skin/Abscess/Foreign Body Stated complaint: states recent groin surgery, thinks infected Time Seen by Provider: 12/26/18 20:43 Source: patient Mode of arrival: ambulatory History of Present Illness HPI narrative: Patient is a 68-year-old female. She is a type 1 diabetic. Approximately 10 days ago had a right inguinal lymph node biopsy done by Dr. Leggett at [facility]. She states that the Steri-Strips that were on their recently fell off. States that since that she has had some drainage from the wound that is clear. She is also here for concerns of cellulitis in her left lower extremity. She has had cellulitis in the past. Related Data Home Medications Medication Instructions Recorded Confirmed atorvastatin 20 mg PO DAILY #0 03/16/10 06/24/18 bupropion HCl 150 mg PO BID #0 03/16/10 06/24/18 cholecalciferol (vitamin D3) 1,000 unit PO DAILY #0 03/16/10 06/24/18 [Vitamin D3] escitalopram oxalate [Lexapro] 2 tab PO DAILY #0 03/16/10 06/24/18 levothyroxine 112 mcg PO DAILY #0 03/16/10 06/24/18 morphine 15 mg PO Q8H #0 03/16/10 06/24/18 multivitamin 1 tab PO DAILY #0 03/16/10 06/24/18 olanzapine 2.5 mg PO BEDTIME #0 03/16/10 06/24/18 omeprazole 20 mg PO Q DAY #0 03/16/10 06/24/18 cevimeline 1 cap PO TID 06/24/18 06/24/18 cyclobenzaprine 0.5 - 1 tab PO TID PRN 06/24/18 06/24/18 furosemide 1 tab PO DAILY PRN 06/24/18 06/24/18 insulin aspart U-100 [Novolog 4 - 6 unit SUBCUT AC 06/24/18 06/24/18 Flexpen U-100 Insulin] lisinopril 2.5 mg PO DAILY 06/24/18 06/24/18 Previous Rx's Medication Instructions Recorded gabapentin 1,200 mg PO BEDTIME #0 tab 06/27/18 hydrocodone-acetaminophen 1 tab PO TID #0 tab 06/27/18 insulin glargine [Lantus Solostar 50 unit SUBCUT BEDTIME #0 ml 06/27/18 U-100 Insulin] ondansetron 4 mg PO TID PRN #10 tab 06/27/18 sulfamethoxazole-trimethoprim 1 tab PO BID #14 tab 06/27/18 [Bactrim DS] clindamycin HCl 300 mg PO QID #40 cap 06/28/18 cephalexin [Keflex] 500 mg PO TID #21 cap 08/13/18 doxycycline hyclate 100 mg PO BID #20 tab 08/28/18 doxycycline hyclate 100 mg PO BID 10 Days #20 tab 12/26/18 Allergies Allergy/AdvReac Type Severity Reaction Status Date / Time No Known Drug Allergies Allergy Verified 10/16/18 19:40 Review of Systems Constitutional Denies fatigue Cardiovascular Denies chest pain and Denies dyspnea Respiratory Denies dyspnea Gastrointestinal Gastrointestinal: Denies abdominal pain Musculoskeletal Denies myalgias and Denies arthralgias Integumentary/Breasts Comments: Drainage from the surgical arranged right inguinal area Redness and swelling to left lower extremity Neurologic Denies behavioral changes Psychiatric Denies behavioral changes Endocrine Denies fatigue Hematologic/Lymphatic Denies easy bleeding and Denies easy bruising [facility] Medical History Fibromyalgia (Acute) Depression (Chronic) Diabetes (Chronic) Fibromyalgia (Chronic) GERD (gastroesophageal reflux disease) (Chronic) Hyperlipidemia (Chronic) Hypothyroidism (Chronic) Meningioma (Chronic) Restless leg syndrome (Chronic) Sjogren's disease (Chronic) Sleep apnea (Chronic) Spinal stenosis, lumbar (Chronic) Venous stasis dermatitis of both lower extremities (Chronic) Social History household members: spouse and children Smoking Status: Current every day smoker Exam Initial Vital Signs Initial Vital Signs: Vital Signs Temperature 97.9 F 12/26/18 20:39 Pulse Rate 83 12/26/18 20:39 Respiratory Rate 16 12/26/18 20:39 Blood Pressure 136/64 12/26/18 20:39 Pulse Oximetry 100 12/26/18 20:39 Const General: cooperative, healthy appearing, comfortable, well developed, well groomed and No acute distress Orientation: alert, awake and oriented x3 HENMT Head: normal to inspection Resp Effort & Inspection: normal respiratory effort Cardio Rate: regular rate Pulses: dorsalis pedis present on the left Skin Other: Patient's right inguinal area is somewhat swollen compared to left. No surrounding erythema. The surgical incision looks well except for a 2 mm area right in the center that is draining clear fluid. Patient's left lower extremity swollen. Has a palm size area of dark redness to the front with some green drainage. She states this has been there for some time. She does have redness circumferential from the ankle to the knee. Neuro General: alert, awake and oriented x3 Extrem Other: No tenderness to palpation of the left ankle with left knee Psych Appearance: grossly normal and well kempt Course Orders Ordered: ED Orders 12/26/18 22:09 Wound Culture and Gram Stain Stat Vital Signs - 8 hr 12/26/18 20:39 12/26/18 21:05 12/26/18 22:28 Temperature 97.9 F 98.1 F Pulse Rate 83 82 75 Respiratory Rate 16 16 16 Blood Pressure 136/64 125/68 Blood Pressure [Left Arm] 126/54 L Pulse Oximetry 100 100 98 MDM - Skin/Abscess/Foreign Bdy MDM Narrative Medical decision making narrative: Who wound culture was obtained from the right inguinal area however the physical exam is not consistent with an infection. Is more consistent with a seroma or potentially lymphatic drainage since was a lymph node that was biopsied. I did discuss the case with the surgery resident at [facility] who agreed with no antibiotics and will pass the message on to Dr. Leggett. Patient was instructed to call Dr. Leggett office tomorrow for a follow-up. The left lower extremity redness has some appearance of a cellulitis. It is warm to the touch. Patient is not febrile. She is nontoxic appearing. This also could be venous stasis changes. Patient states she has been putting topical bacitracin on the area without any improvement. She states that 1 month ago it looked very similar to this and she completed a course of doxycycline and the redness vastly improved except for the dark area on the front of her thomas. I informed the patient that she needed to talk with her primary doctor about referrals to have peripheral vascular studies performed. Also discuss the possibility of getting in to see dermatology. We did discuss options and the patient opted to do another course of doxycycline so she was given a prescription for this. She was given return precautions. She expressed understanding and agreement with plan. Patient understands that a wound culture is pending at the time of her discharge. Discharge Plan Departure Patient Disposition: Home Clinical Impression: Dehiscence of surgical wound Qualifiers: Encounter type: initial encounter Qualified Code(s): T81.31XA - Disruption of external operation (surgical) wound, not elsewhere classified, initial encounter Cellulitis Qualifiers: Site of cellulitis: extremity Site of cellulitis of extremity: lower extremity Laterality: left Qualified Code(s): L03.116 - Cellulitis of left lower limb Discharge Date/Time: 12/26/18 22:28 Interventions: ED Discharge Assessment Last Done: 12/26/18 22:28 Instructions: Cellulitis Activity Restrictions/Additional Instructions: Take the antibiotics like we discussed. Also call your operative surgeon's office tomorrow to discuss the surgical wound. Also talked with your primary doctor about the indications to have vascular studies done of your leg return to the emergency department for any new or worsening symptoms Prescriptions: New doxycycline hyclate 100 mg tablet 100 mg PO BID 10 Days Qty: 20 RF: 0 No Action morphine 15 MG tablet 15 mg PO Q8H Qty: 0 RF: 0 multivitamin Tablet 1 tab PO DAILY Qty: 0 RF: 0 cholecalciferol (vitamin D3) [Vitamin D3] 1,000 unit Tablet 1,000 unit PO DAILY Qty: 0 RF: 0 atorvastatin 20 mg Tablet 20 mg PO DAILY Qty: 0 RF: 0 levothyroxine 112 mcg Capsule 112 mcg PO DAILY Qty: 0 RF: 0 bupropion HCl 150 mg Tablet Sustained-Release 12 Hr 150 mg PO BID Qty: 0 RF: 0 olanzapine 2.5 mg Tablet 2.5 mg PO BEDTIME Qty: 0 RF: 0 omeprazole 20 mg Capsule,Delayed Release(Dr/Ec) 20 mg PO Q DAY Qty: 0 RF: 0 escitalopram oxalate [Lexapro] 20 mg Tablet 2 tab PO DAILY Qty: 0 RF: 0 cyclobenzaprine 10 mg Tablet 0.5 - 1 tab PO TID PRN (Reason: Muscle Spasm) RF: 0 cevimeline 30 mg Capsule 1 cap PO TID RF: 0 furosemide 20 mg Tablet 1 tab PO DAILY PRN (Reason: edema) RF: 0 lisinopril 2.5 mg Tablet 2.5 mg PO DAILY RF: 0 insulin aspart U-100 [Novolog Flexpen U-100 Insulin] 100 unit/mL Insulin Pen 4 - 6 unit SUBCUT AC RF: 0 hydrocodone-acetaminophen 5-325 mg Tablet 1 tab PO TID Qty: 0 RF: 0 insulin glargine [Lantus Solostar U-100 Insulin] 100 unit/mL (3 mL) Insulin Pen 50 unit SUBCUT BEDTIME Qty: 0 RF: 0 gabapentin 600 mg Tablet 1,200 mg PO BEDTIME Qty: 0 RF: 0 doxycycline hyclate 100 mg tablet 100 mg PO BID Qty: 20 RF: 0 ondansetron 4 mg tablet,disintegrating 4 mg PO TID PRN (Reason: nausea and vomiting) Qty: 10 RF: 0 sulfamethoxazole-trimethoprim [Bactrim DS] 800-160 mg tablet 1 tab PO BID Qty: 14 RF: 0 clindamycin HCl 300 mg capsule 300 mg PO QID Qty: 40 RF: 0 cephalexin [Keflex] 500 mg capsule 500 mg PO TID Qty: 21 RF: 0 Referrals: Karmen Avalos PA-C [Primary Care Provider] -
[2018-12-26 22:28] VITALS: BP 125/68; PULSE 75; RESP 16; TEMP 36.7; O2SAT 98
== END 2018-12-26 22:28 | disposition home or self-care (01) ==
PROVIDERS: Emergency Provider Emergency Medicine; PCP Physician Assistant
DX: T81.31XA Disruption of external operation (surgical) wound, not elsewhere classified, initial encounter (principal); L03.116 Cellulitis of left lower limb
CPT/HCPCS: 87070; 87075; 87077; 87186; 87205; 99282; 99283

== ENCOUNTER 2019-01-01 07:33 | Emergency (ER) | payer OTHER, SELFPAY ==
[2018-06-24 16:22] VITALS: BMI 35.2
[2019-01-01 07:47] VITALS: BP 122/62; PULSE 86; RESP 18; TEMP 37.1; O2SAT 100; BMI 28.8
--- NOTE | 2019-01-01 08:16 | ED_ITS ---
HPI - Skin/Abscess/Foreign Bdy General Chief complaint: Skin/Abscess/Foreign Body Stated complaint: Lymph node removed, lymphatic fluid leaking Time Seen by Provider: 01/01/19 07:59 Source: patient Mode of arrival: ambulatory Limitations: no limitations History of Present Illness HPI narrative: Patient is 68-year-old female who had a lymph node removed at [facility] on December 16. She started having some leakage of her lymphatic fluid at the incision site she was seen by the surgeon last week who put in extra suture. She has now had having continuous drainage. The area surrounding is erythematous. Fluid draining is clear. She has not had a fever. She has actually been on doxycycline for about a week for some lower extremity cellulitis. Onset (ago): week(s) (1) Severity: mild Related Data Home Medications Medication Instructions Recorded Confirmed atorvastatin 20 mg PO DAILY #0 03/16/10 06/24/18 bupropion HCl 150 mg PO BID #0 03/16/10 06/24/18 cholecalciferol (vitamin D3) 1,000 unit PO DAILY #0 03/16/10 06/24/18 [Vitamin D3] escitalopram oxalate [Lexapro] 2 tab PO DAILY #0 03/16/10 06/24/18 levothyroxine 112 mcg PO DAILY #0 03/16/10 06/24/18 morphine 15 mg PO Q8H #0 03/16/10 06/24/18 multivitamin 1 tab PO DAILY #0 03/16/10 06/24/18 olanzapine 2.5 mg PO BEDTIME #0 03/16/10 06/24/18 omeprazole 20 mg PO Q DAY #0 03/16/10 06/24/18 cevimeline 1 cap PO TID 06/24/18 06/24/18 cyclobenzaprine 0.5 - 1 tab PO TID PRN 06/24/18 06/24/18 furosemide 1 tab PO DAILY PRN 06/24/18 06/24/18 insulin aspart U-100 [Novolog 4 - 6 unit SUBCUT AC 06/24/18 06/24/18 Flexpen U-100 Insulin] lisinopril 2.5 mg PO DAILY 06/24/18 06/24/18 Previous Rx's Medication Instructions Recorded gabapentin 1,200 mg PO BEDTIME #0 tab 06/27/18 hydrocodone-acetaminophen 1 tab PO TID #0 tab 06/27/18 insulin glargine [Lantus Solostar 50 unit SUBCUT BEDTIME #0 ml 06/27/18 U-100 Insulin] ondansetron 4 mg PO TID PRN #10 tab 06/27/18 sulfamethoxazole-trimethoprim 1 tab PO BID #14 tab 06/27/18 [Bactrim DS] clindamycin HCl 300 mg PO QID #40 cap 06/28/18 cephalexin [Keflex] 500 mg PO TID #21 cap 08/13/18 doxycycline hyclate 100 mg PO BID #20 tab 08/28/18 doxycycline hyclate 100 mg PO BID 10 Days #20 tab 12/26/18 sulfamethoxazole-trimethoprim 1 tab PO BID 7 Days #14 tab 01/01/19 [Bactrim DS] Allergies Allergy/AdvReac Type Severity Reaction Status Date / Time No Known Drug Allergies Allergy Verified 01/01/19 07:53 Review of Systems Review of Systems GENERAL: Denies chills, fatigue, malaise, fever, sweats, travel HEENT: Denies sinus pain, ear pain, sore throat, difficulty swallowing, neck pain RESPIRATORY: Denies dyspnea, cough, wheezing, hemoptysis, sputum. CARDIOVASCULAR: Denies chest pain, palpitations, orthopnea, edema GASTROINTESTINAL: Denies nausea, vomiting, abdominal pain, diarrhea, constipation, melena. : Denies dysuria, frequency, incontinence, hematuria, urinary retention, flank pain. MUSCULOSKELETAL: Denies weakness, joint pain, or bony pain SKIN: See HPI NEUROLOGIC: Denies weakness, dizziness, headache, numbness, change in speech, confusion PSYCHIATRIC: No concerning psychosocial issues. 12 point review of systems is negative except for those stated above and HPI PFSH Medical History Fibromyalgia (Acute) Depression (Chronic) Diabetes (Chronic) Fibromyalgia (Chronic) GERD (gastroesophageal reflux disease) (Chronic) Hyperlipidemia (Chronic) Hypothyroidism (Chronic) Meningioma (Chronic) Restless leg syndrome (Chronic) Sjogren's disease (Chronic) Sleep apnea (Chronic) Spinal stenosis, lumbar (Chronic) Venous stasis dermatitis of both lower extremities (Chronic) Surgical History H/O total hysterectomy (Resolved) Social History household members: spouse and children Smoking Status: Current every day smoker Social History household members: spouse and children Smoking Status: Current every day smoker Exam Initial Vital Signs Initial Vital Signs: Vital Signs Temperature 98.7 F 01/01/19 07:47 Pulse Rate 86 01/01/19 07:47 Respiratory Rate 18 01/01/19 07:47 Blood Pressure 122/62 01/01/19 07:47 Pulse Oximetry 100 01/01/19 07:47 GENERAL: Well-appearing, well-nourished and in no acute distress. CARDIOVASCULAR: peripheral pulses in tact, cap refill <2 sec RESPIRATORY: No respiratory distress, speaks in full sentences without difficulty EXTREMITIES: Normal range of motion, no clubbing or edema. Neurovascularly intact NEUROLOGICAL: Cranial nerves II through XII grossly intact. Normal gait and speech. SKIN: Right groin area almost incision site is actually healed there some buildup behind the incision site 1 sutures placed clear drainage from that suture site. Area is erythematous blanchable patient is afebrile Course Vital Signs - 8 hr 01/01/19 07:47 Temperature 98.7 F Pulse Rate 86 Respiratory Rate 18 Blood Pressure 122/62 Pulse Oximetry 100 MDM - Skin/Abscess/Foreign Bdy MDM Narrative Medical decision making narrative: I discussed case with Dr. Vidal, on-call for the [facility] surgery. She agreed nothing to do at this time. Recommend changing bandages. Due to the erythema recommended Bactrim. Patient should call office on Thursday to schedule follow-up appointment. Discharge Plan Departure Patient Disposition: Home Clinical Impression: Cellulitis Qualifiers: Site of cellulitis: other site Qualified Code(s): L03.818 - Cellulitis of other sites Discharge Date/Time: 01/01/19 09:17 Interventions: ED Discharge Assessment Last Done: 01/01/19 09:16 Instructions: DI for Cellulitis -- Adult Activity Restrictions/Additional Instructions: *You have been diagnosed with a cellulitis *What to do: Continue to change dressings been so to try to keep the area clean and dry. *Continue to take medications as directed Continue doxycycline Bactrim 1 pill twice a day for 7 days--sent to [facility] in [place] *Follow up with your primary care provider in 2-3 days, call the surgeon's off ice on Thursday to schedule appointment next week. I spoke with Dr. Vidal today *Return to ER if you should have fever, increased redness, increased pain or any new, worsening or concerning symptoms Prescriptions: New sulfamethoxazole-trimethoprim [Bactrim DS] 800-160 mg tablet 1 tab PO BID 7 Days Qty: 14 RF: 0 No Action morphine 15 MG tablet 15 mg PO Q8H Qty: 0 RF: 0 multivitamin Tablet 1 tab PO DAILY Qty: 0 RF: 0 cholecalciferol (vitamin D3) [Vitamin D3] 1,000 unit Tablet 1,000 unit PO DAILY Qty: 0 RF: 0 atorvastatin 20 mg Tablet 20 mg PO DAILY Qty: 0 RF: 0 levothyroxine 112 mcg Capsule 112 mcg PO DAILY Qty: 0 RF: 0 bupropion HCl 150 mg Tablet Sustained-Release 12 Hr 150 mg PO BID Qty: 0 RF: 0 olanzapine 2.5 mg Tablet 2.5 mg PO BEDTIME Qty: 0 RF: 0 omeprazole 20 mg Capsule,Delayed Release(Dr/Ec) 20 mg PO Q DAY Qty: 0 RF: 0 escitalopram oxalate [Lexapro] 20 mg Tablet 2 tab PO DAILY Qty: 0 RF: 0 cyclobenzaprine 10 mg Tablet 0.5 - 1 tab PO TID PRN (Reason: Muscle Spasm) RF: 0 cevimeline 30 mg Capsule 1 cap PO TID RF: 0 furosemide 20 mg Tablet 1 tab PO DAILY PRN (Reason: edema) RF: 0 lisinopril 2.5 mg Tablet 2.5 mg PO DAILY RF: 0 insulin aspart U-100 [Novolog Flexpen U-100 Insulin] 100 unit/mL Insulin Pen 4 - 6 unit SUBCUT AC RF: 0 hydrocodone-acetaminophen 5-325 mg Tablet 1 tab PO TID Qty: 0 RF: 0 insulin glargine [Lantus Solostar U-100 Insulin] 100 unit/mL (3 mL) Insulin Pen 50 unit SUBCUT BEDTIME Qty: 0 RF: 0 gabapentin 600 mg Tablet 1,200 mg PO BEDTIME Qty: 0 RF: 0 doxycycline hyclate 100 mg tablet 100 mg PO BID Qty: 20 RF: 0 doxycycline hyclate 100 mg tablet 100 mg PO BID 10 Days Qty: 20 RF: 0 ondansetron 4 mg tablet,disintegrating 4 mg PO TID PRN (Reason: nausea and vomiting) Qty: 10 RF: 0 sulfamethoxazole-trimethoprim [Bactrim DS] 800-160 mg tablet 1 tab PO BID Qty: 14 RF: 0 clindamycin HCl 300 mg capsule 300 mg PO QID Qty: 40 RF: 0 cephalexin [Keflex] 500 mg capsule 500 mg PO TID Qty: 21 RF: 0 Referrals: Moose Leggett MD [Non-Staff] - Brittany Warner MD [Primary Care Provider] -
--- NOTE | 2019-01-01 09:15 | PC.NURSE ---
right lower abdominal with one suture, incision site surrounding with redness and swelling.
== END 2019-01-01 09:17 | disposition home or self-care (01) ==
PROVIDERS: Emergency Provider Emergency Medicine; PCP Internal Medicine
DX: L03.90 Cellulitis, unspecified (principal)
CPT/HCPCS: 99282

== ENCOUNTER 2019-01-02 16:40 | Inpatient (IN) | payer OTHER, SELFPAY ==
[2018-06-24 16:22] VITALS: BMI 35.2
[2019-01-02] VITALS (9 sets, daily range): BP systolic 92–157; BP diastolic 39–77; PULSE 80–113; RESP 17–29; TEMP 37.7–39.6; O2SAT 90–100
--- NOTE | 2019-01-02 16:59 | DI.RAD.S_ITS ---
PROCEDURE: XR CHEST 1V INDICATIONS: fever TECHNIQUE: One view of the chest was acquired. COMPARISON: [facility], CT, CT CHEST W CON, 09/23/2018, 7:56. [facility], CR, XR CHEST FOR PICC 1V, 06/24/2018, 10:29. [facility], CR, XR CHEST 1V, 06/24/2018, 1:09. [facility], CR, XR CHEST 2V, 06/09/2018, 22:30. FINDINGS: Surgical changes and devices: None. Lungs and pleura: Mild interstitial prominence is seen. No focal infiltrates are seen. No pneumothorax or pleural effusions are seen. Mediastinum: Mediastinal contours appear normal. Heart size is normal. Bones and chest wall: Age-appropriate bony degenerative changes are seen. No suspicious bony lesions. Overlying soft tissues appear unremarkable. IMPRESSION: No focal infiltrates are seen. Mild generalized interstitial prominence is seen. This is similar to prior examinations and is felt most likely to be related to baseline parenchymal coarsening. Differential diagnosis includes pulmonary edema and a viral process, however. Dictated by: Matt Richardson M.D. on 01/02/2019 at 16:25 Approved by: Matt Richardson M.D. on 01/02/2019 at 16:27
--- NOTE | 2019-01-02 17:32 | DI.CT.S_ITS ---
PROCEDURE: CT ABDOMEN PELVIS W CON INDICATIONS: erythema and swelling extending from inc site, TECHNIQUE: After the administration of intravenous contrast, 5 mm thick sections acquired from the diaphragm to the symphysis. 5 mm coronal and sagittal reformats were acquired. For radiation dose reduction, the following was used: automated exposure control, adjustment of mA and/or kV according to patient size. COMPARISON: [facility], MR, MR ABDOMEN WO CON, 09/23/2018, 7:18. [facility], CT, CT ABDOMEN PELVIS W CON, 09/17/2018, 14:08. FINDINGS: Image quality: Excellent. ABDOMEN: Lung bases: Lung bases are clear. Heart size is normal. Solid organs: Liver is normal in size and enhancement. Gallbladder is distended. Gallbladder wall is prominent.. Biliary system is mildly dilated with mild intrahepatic biliary tree dilatation and common bile duct measuring up to 10 mm.. Pancreas enhances normally. Spleen is normal in size and enhancement. No adrenal nodules. Kidneys demonstrate normal size and enhancement, without hydronephrosis. Peritoneum and bowel: Bowel loops demonstrate normal wall thickness and caliber. No free fluid or air. Nodes and vessels: No retroperitoneal or mesenteric adenopathy by size criteria. Aorta and inferior vena cava are normal in size. Miscellaneous: No ventral hernias. PELVIS: Genitourinary: Bladder wall thickness is normal. Miscellaneous: No inguinal hernias. There is a 7.9 x 5.7 x 5.4 cm low-density fluid collection in the left groin reportedly in the region of recent surgical intervention likely represents seroma, however infected fluid collection/abscess can't be excluded by imaging alone. Enlarged bilateral inguinal lymph nodes are noted. Bones: No suspicious bony lesions. No vertebral body compression fractures. IMPRESSION: 1. 7.9 x 5.7 x 5.4 cm fluid collection in the right groin which could represent postsurgical seroma, however infected fluid collections as abscess can't be excluded by imaging alone. 2. Prominence of the gallbladder and gallbladder wall is massively changed compared to prior exams. If there is clinical concern for cholecystitis, recommend abdominal ultrasound for further evaluation. 3. Mild intra-and extrahepatic biliary tree dilatation not significantly changed compared to prior exams. Recommend correlation with laboratory data to exclude biliary obstruction. If there is clinical concern for obstruction, gastroenterology consultation is recommended. Dictated by: Elvira Henry MD, PhD on 01/02/2019 at 18:53 Approved by: Elvira Henry MD, PhD on 01/02/2019 at 19:02
[2019-01-02 17:36] LABS: Add Manual Diff / Slide Review NO; Basophils Absolute Auto 0 /uL (0-100); Basophils Percent Auto 0.1 % (0-2); Eosinophils Absolute Auto 0 /uL (0-450); Eosinophils Percent Auto 0.1 % (2-4); Hematocrit 39.6 % (36-46); Hemoglobin 13.1 g/dL (12.0-16.0); Lymphocytes Absolute Auto 300 /uL (1100-4500); Lymphocytes Percent Auto 12.2 % (25-40); Mean Corpuscular HGB Conc 33.1 % (30-36); Mean Corpuscular Hemoglobin 28.8 PG (26-34); Mean Corpuscular Volume 87.1 fL (80-100); Monocytes Absolute Auto 0 /uL (0-900); Monocytes Percent Auto 0.5 % (3-14); Neutrophils Absolute Auto 1900 /uL (1500-7000); Neutrophils Percent Auto 87.1 % (50-75); Platelet Count 172 X10^3/uL (150-400); Red Blood Cell Count 4.55 X10^6/uL (4.0-5.2); Red Cell Distribution Width 12.9 % (11.6-14.8); White Blood Cell Count 2.2 X10^3/uL (4.5-11.0)
[2019-01-02] MEDS: ONDANSETRON 4 MG/2 ML INJ IV (17:40)
[2019-01-02 17:43] LABS: Lactate (Lactic Acid) 2.9 mmol/L (0.7-2.1)
[2019-01-02 17:48] LABS: Alanine Aminotransferase 34 IU/L (9-52); Albumin 3.7 g/dL (3.5-5.0); Albumin Globulin Ratio 1.1 (1.0-2.8); Alkaline Phosphatase 133 U/L (38-126); Aspartate Aminotransferase 77 IU/L (14-36); Bilirubin Total 0.7 mg/dL (0.2-1.3); Blood Urea Nitrogen 14 mg/dL (7-17); Calcium 9.5 mg/dL (8.4-10.2); Carbon Dioxide 31 mmol/L (22-32); Chloride 99 mmol/L (98-107); Estimated Glomerular Filt Rate > 60.0 mL/min (>60); Globulin 3.3 g/dL (1.7-4.1); Glucose 111 mg/dL (80-110); HEMOLYSIS < 15 (0-50); Potassium 3.9 mmol/L (3.4-5.1); Sodium 138 mmol/L (137-145)
[2019-01-02] MEDS: PIPERACILLIN-TAZO 3.375 GM/50 ML FROZ.PIGGY IV (17:57)
[2019-01-02] MEDS: SODIUM CHLORIDE 0.9% 870 ML IV (18:01)
[2019-01-02 18:06] LABS: Procalcitonin 0.38 ng/mL (<0.5)
--- NOTE | 2019-01-02 18:32 | ED.FEVER ---
HPI - Fever <Tarah Alonzo, OPEN SOURCE DEVELOPER-BC - Last Filed: 01/02/19 22:46> General Chief Complaint: Fever Stated Complaint: fever, feels like she is freezing Time Seen by Provider: 01/02/19 17:04 Source: patient and family Mode of arrival: ambulatory Limitations: no limitations History of Present Illness HPI Narrative: The patient is a 68-year-old female type 1 diabetic with history of dehiscence of her surgical wound and cellulitis who presents with her for chief complaint of fever and chills. She presents today after being started on Bactrim at this facility yesterday. She complains of fever, chills, general malaise. She stated she started feeling slightly worse last night, but felt much worse today. She has had 1 dose of Bactrim. She has not followed up with her surgeon. She has appointment tomorrow. She denies any vomiting, but complains of nausea. Of note she has been on doxy for lower leg cellulitis. She is a brittle type 1 diabetic. Related Data Home Medications Medication Instructions Recorded Confirmed atorvastatin 20 mg PO DAILY #0 03/16/10 06/24/18 bupropion HCl 150 mg PO BID #0 03/16/10 06/24/18 cholecalciferol (vitamin D3) 1,000 unit PO DAILY #0 03/16/10 06/24/18 [Vitamin D3] escitalopram oxalate [Lexapro] 2 tab PO DAILY #0 03/16/10 06/24/18 levothyroxine 112 mcg PO DAILY #0 03/16/10 06/24/18 morphine 15 mg PO Q8H #0 03/16/10 06/24/18 multivitamin 1 tab PO DAILY #0 03/16/10 06/24/18 olanzapine 2.5 mg PO BEDTIME #0 03/16/10 06/24/18 omeprazole 20 mg PO Q DAY #0 03/16/10 06/24/18 cevimeline 1 cap PO TID 06/24/18 06/24/18 cyclobenzaprine 0.5 - 1 tab PO TID PRN 06/24/18 06/24/18 furosemide 1 tab PO DAILY PRN 06/24/18 06/24/18 insulin aspart U-100 [Novolog 4 - 6 unit SUBCUT AC 06/24/18 06/24/18 Flexpen U-100 Insulin] lisinopril 2.5 mg PO DAILY 06/24/18 06/24/18 Previous Rx's Medication Instructions Recorded gabapentin 1,200 mg PO BEDTIME #0 tab 06/27/18 hydrocodone-acetaminophen 1 tab PO TID #0 tab 06/27/18 insulin glargine [Lantus Solostar 50 unit SUBCUT BEDTIME #0 ml 06/27/18 U-100 Insulin] ondansetron 4 mg PO TID PRN #10 tab 06/27/18 sulfamethoxazole-trimethoprim 1 tab PO BID #14 tab 06/27/18 [Bactrim DS] clindamycin HCl 300 mg PO QID #40 cap 06/28/18 cephalexin [Keflex] 500 mg PO TID #21 cap 08/13/18 doxycycline hyclate 100 mg PO BID #20 tab 08/28/18 doxycycline hyclate 100 mg PO BID 10 Days #20 tab 12/26/18 sulfamethoxazole-trimethoprim 1 tab PO BID 7 Days #14 tab 01/01/19 [Bactrim DS] Allergies Allergy/AdvReac Type Severity Reaction Status Date / Time No Known Drug Allergies Allergy Verified 01/01/19 07:53 Review of Systems <CARON Elizabeth - Last Filed: 01/02/19 22:46> Review of Systems GENERAL: See HPI HEENT: Denies sinus pain, ear pain, sore throat, difficulty swallowing, dizziness. RESPIRATORY: Denies dyspnea, cough, wheezing, hemoptysis, sputum. CARDIOVASCULAR: Denies chest pain, palpitations, orthopnea, edema, GASTROINTESTINAL: Denies nausea, vomiting, abdominal pain, diarrhea, constipation, melena. : Denies dysuria, frequency, incontinence, hematuria, urinary retention. MUSCULOSKELETAL: denies weakness, joint pain, or bony pain SKIN: See HPI NEUROLOGIC: Denies weakness, headache, numbness, change in speech, confusion, seizures, incoordination. PSYCHIATRIC: No concerning psychosocial issues. 12 point review of systems is negative except for those stated above PFSH <CARON Elizabeth - Last Filed: 01/02/19 22:46> Medical History Fibromyalgia (Acute) Depression (Chronic) Diabetes (Chronic) Fibromyalgia (Chronic) GERD (gastroesophageal reflux disease) (Chronic) Hyperlipidemia (Chronic) Hypothyroidism (Chronic) Meningioma (Chronic) Restless leg syndrome (Chronic) Sjogren's disease (Chronic) Sleep apnea (Chronic) Spinal stenosis, lumbar (Chronic) Venous stasis dermatitis of both lower extremities (Chronic) Social History household members: spouse and children Smoking Status: Current every day smoker Exam <CARON Elizabeth - Last Filed: 01/02/19 22:46> Narrative Exam Narrative: GENERAL: Chronically ill-appearing lady lying on stretcher covered in blankets. Fatigue. HEAD: Atraumatic. Normocephalic. No temporal or scalp tenderness. EYES: Pupils equal round and reactive. Extraocular motions intact. No scleral icterus. No injection or drainage. ENT: Nose without bleeding, purulent drainage or septal hematoma. Throat without erythema, tonsillar hypertrophy or exudate. Uvula midline. Airway patent. NECK: Trachea midline. No JVD or lymphadenopathy. Supple, nontender, no meningeal signs. CARDIOVASCULAR: Tachycardic rate and regular rhythm RESPIRATORY: Clear to auscultation. Breath sounds equal bilaterally. No wheezes, rales, or rhonchi. No cough. No increased respiratory effort. No accessory muscle use. GASTROINTESTINAL: Abdomen soft, nondistended. No hepato-splenomegaly, or palpable masses. No guarding. Diffuse pain to palpation right lower quadrant towards inguinal area EXTREMITIES: No clubbing, cyanosis, or edema. No joint tenderness, effusion, or edema noted. BACK: Nontender without deformity or crepitance. No flank tenderness. NEURO: AOx3. SKIN: Right groin incision site has single suture in place, leaking fluid. Erythematous area stretching across the lower stomach which is warm to palpation. erythema also noted left lower leg. Initial Vital Signs Initial Vital Signs: Vital Signs Temperature 99.9 F H 01/02/19 16:55 Pulse Rate 113 H 01/02/19 16:55 Respiratory Rate 23 01/02/19 16:55 Blood Pressure 157/60 H 01/02/19 16:55 Pulse Oximetry 96 01/02/19 16:55 <Yuval Tomas DO - Last Filed: 01/02/19 23:52> Initial Vital Signs Initial Vital Signs: Vital Signs Temperature 99.9 F H 01/02/19 16:55 Pulse Rate 113 H 01/02/19 16:55 Respiratory Rate 23 01/02/19 16:55 Blood Pressure 157/60 H 01/02/19 16:55 Pulse Oximetry 96 01/02/19 16:55 Course <Tarah Alonzo, OPEN SOURCE DEVELOPER-BC - Last Filed: 01/02/19 22:46> Course Narrative: I checked on the patient several times throughout her stay in the emergency department. Orders Ordered: ED Orders 01/02/19 16:59 XR chest 1V Stat 01/02/19 17:25 Complete Blood Count AUTO DIFF Stat Comprehensive Metabolic Panel Stat Lactate (Lactic Acid) Stat Procalcitonin Stat 01/02/19 17:32 CT abdomen pelvis w con Stat 01/02/19 17:50 Blood Culture Stat 01/02/19 19:17 US abdomen limited Stat Dextrose (D50w) 12.5 gm IV PRN PRN PRN Reason: Hypoglycemia Last Admin: 01/02/19 22:19 Dose: 12.5 gm Admin: 01/02/19 19:12 Dose: 12.5 gm Piperacillin/Tazobactam/Dextrose (Zosyn) 3.375 gm in 50 mls @ 100 mls/hr IV Q8H FRANCISCO JAVIER Last Infusion: 01/02/19 19:13 Dose: 100 mls/hr Admin: 01/02/19 17:57 Dose: 100 mls/hr Discontinued Medications Acetaminophen (Tylenol) 975 mg PO NOW ONE Stop: 01/02/19 18:07 Last Admin: 01/02/19 18:50 Dose: 975 mg Dextrose (D50w) 25 gm IV NOW ONE Stop: 01/02/19 20:18 Last Admin: 01/02/19 20:18 Dose: Not Given Sodium Chloride (Normal Saline 0.9%) 2,610 mls @ 870 mls/hr 30 ml/kg infuse over 3 hr (2610 ml) IV NOW ONE Stop: 01/02/19 20:31 Last Infusion: 01/02/19 21:43 Dose: 0 mls/hr Admin: 01/02/19 18:01 Dose: 870 mls/hr Vancomycin HCl/Dextrose (Vancomycin) 1,500 mg in 300 mls @ 200 mls/hr IV NOW ONE Stop: 01/02/19 19:03 Last Infusion: 01/02/19 21:43 Dose: 0 mls/hr Admin: 01/02/19 19:12 Dose: 200 mls/hr Ondansetron HCl (Zofran) 4 mg IV NOW ONE Stop: 01/02/19 17:45 Last Admin: 01/02/19 17:40 Dose: 4 mg Vital Signs - 8 hr 01/02/19 16:55 01/02/19 17:22 01/02/19 17:58 Temperature 99.9 F H Pulse Rate 113 H 113 H 101 H Respiratory Rate 23 18 29 H Blood Pressure 157/60 H Blood Pressure [Right Arm] 130/74 119/77 Pulse Oximetry 96 94 90 L 01/02/19 18:50 01/02/19 19:32 01/02/19 20:38 Temperature 103.3 F H Pulse Rate 101 H 93 H Respiratory Rate 20 17 Blood Pressure Blood Pressure [Right Arm] 97/75 101/39 L Pulse Oximetry 93 90 L 01/02/19 21:19 01/02/19 22:55 Temperature Pulse Rate 87 84 Respiratory Rate 17 17 Blood Pressure Blood Pressure [Right Arm] 100/41 L 92/45 L Pulse Oximetry 96 97 <Yuval Tomas, DO - Last Filed: 01/02/19 23:52> Orders Ordered: ED Orders 01/02/19 16:59 XR chest 1V Stat 01/02/19 17:25 Complete Blood Count AUTO DIFF Stat Comprehensive Metabolic Panel Stat Lactate (Lactic Acid) Stat Procalcitonin Stat 01/02/19 17:32 CT abdomen pelvis w con Stat 01/02/19 17:50 Blood Culture Stat 01/02/19 19:17 US abdomen limited Stat Dextrose (D50w) 12.5 gm IV PRN PRN PRN Reason: Hypoglycemia Last Admin: 01/02/19 22:19 Dose: 12.5 gm Admin: 01/02/19 19:12 Dose: 12.5 gm Piperacillin/Tazobactam/Dextrose (Zosyn) 3.375 gm in 50 mls @ 100 mls/hr IV Q8H FRANCISCO JAVIER Last Infusion: 01/02/19 19:13 Dose: 100 mls/hr Admin: 01/02/19 17:57 Dose: 100 mls/hr Discontinued Medications Acetaminophen (Tylenol) 975 mg PO NOW ONE Stop: 01/02/19 18:07 Last Admin: 01/02/19 18:50 Dose: 975 mg Dextrose (D50w) 25 gm IV NOW ONE Stop: 01/02/19 20:18 Last Admin: 01/02/19 20:18 Dose: Not Given Sodium Chloride (Normal Saline 0.9%) 2,610 mls @ 870 mls/hr 30 ml/kg infuse over 3 hr (2610 ml) IV NOW ONE Stop: 01/02/19 20:31 Last Infusion: 01/02/19 21:43 Dose: 0 mls/hr Admin: 01/02/19 18:01 Dose: 870 mls/hr Vancomycin HCl/Dextrose (Vancomycin) 1,500 mg in 300 mls @ 200 mls/hr IV NOW ONE Stop: 01/02/19 19:03 Last Infusion: 01/02/19 21:43 Dose: 0 mls/hr Admin: 01/02/19 19:12 Dose: 200 mls/hr Ondansetron HCl (Zofran) 4 mg IV NOW ONE Stop: 01/02/19 17:45 Last Admin: 01/02/19 17:40 Dose: 4 mg Vital Signs - 8 hr 01/02/19 16:55 01/02/19 17:22 01/02/19 17:58 Temperature 99.9 F H Pulse Rate 113 H 113 H 101 H Respiratory Rate 23 18 29 H Blood Pressure 157/60 H Blood Pressure [Right Arm] 130/74 119/77 Pulse Oximetry 96 94 90 L 01/02/19 18:50 01/02/19 19:32 01/02/19 20:38 Temperature 103.3 F H Pulse Rate 101 H 93 H Respiratory Rate 20 17 Blood Pressure Blood Pressure [Right Arm] 97/75 101/39 L Pulse Oximetry 93 90 L 01/02/19 21:19 01/02/19 22:55 Temperature Pulse Rate 87 84 Respiratory Rate 17 17 Blood Pressure Blood Pressure [Right Arm] 100/41 L 92/45 L Pulse Oximetry 96 97 MDM - Fever <CARON Elizabeth - Last Filed: 01/02/19 22:46> Lab Data Result diagrams: 01/02/19 17:25 01/02/19 17:25 Lab Results 0501/02/19 01/02/19 Range/Units 17:25 17:25 17:25 WBC 2.2 L (4.5-11.0) X10^3/uL RBC 4.55 (4.0-5.2) X10^6/uL Hgb 13.1 (12.0-16.0) g/dL Hct 39.6 (36-46) % MCV 87.1 (80-100) fL MCH 28.8 (26-34) PG MCHC 33.1 (30-36) % RDW 12.9 (11.6-14.8) % Plt Count 172 (150-400) X10^3/uL Neut % (Auto) 87.1 H (50-75) % Lymph % (Auto) 12.2 L (25-40) % Terrell % (Auto) 0.5 L (3-14) % Eos % (Auto) 0.1 L (2-4) % Baso % (Auto) 0.1 (0-2) % Neut # (Auto) 1900 (5802-6405) /uL Lymph # (Auto) 300 L (8468-1591) /uL Terrell # (Auto) 0 (0-900) /uL Eos # (Auto) 0 (0-450) /uL Baso # (Auto) 0 (0-100) /uL Sodium 138 (137-145) mmol/L Potassium 3.9 (3.4-5.1) mmol/L Chloride 99 (98-107) mmol/L Carbon Dioxide 31 (22-32) mmol/L BUN 14 (7-17) mg/dL Creatinine 0.50 L (0.52-1.04) mg/dL Estimated GFR > 60.0 (>60) mL/min BUN/Creatinine Ratio 28.0 H (6-22) Glucose 111 H (80-110) mg/dL Lactate 2.9 H (0.7-2.1) mmol/L Calcium 9.5 (8.4-10.2) mg/dL Total Bilirubin 0.7 (0.2-1.3) mg/dL AST 77 H (14-36) IU/L ALT 34 (9-52) IU/L Alkaline Phosphatase 133 H (38-126) U/L Total Protein 7.0 (6.3-8.2) g/dL Albumin 3.7 (3.5-5.0) g/dL Globulin 3.3 (1.7-4.1) g/dL Albumin/Globulin Ratio 1.1 (1.0-2.8) Procalcitonin (<0.5) ng/mL 01/02/19 01/02/19 Range/Units 17:25 19:25 WBC (4.5-11.0) X10^3/uL RBC (4.0-5.2) X10^6/uL Hgb (12.0-16.0) g/dL Hct (36-46) % MCV (80-100) fL MCH (26-34) PG MCHC (30-36) % RDW (11.6-14.8) % Plt Count (150-400) X10^3/uL Neut % (Auto) (50-75) % Lymph % (Auto) (25-40) % Terrell % (Auto) (3-14) % Eos % (Auto) (2-4) % Baso % (Auto) (0-2) % Neut # (Auto) (7600-1240) /uL Lymph # (Auto) (1327-7625) /uL Terrell # (Auto) (0-900) /uL Eos # (Auto) (0-450) /uL Baso # (Auto) (0-100) /uL Sodium (137-145) mmol/L Potassium (3.4-5.1) mmol/L Chloride (98-107) mmol/L Carbon Dioxide (22-32) mmol/L BUN (7-17) mg/dL Creatinine (0.52-1.04) mg/dL Estimated GFR (>60) mL/min BUN/Creatinine Ratio (6-22) Glucose (80-110) mg/dL Lactate 1.8 (0.7-2.1) mmol/L Calcium (8.4-10.2) mg/dL Total Bilirubin (0.2-1.3) mg/dL AST (14-36) IU/L ALT (9-52) IU/L Alkaline Phosphatase (38-126) U/L Total Protein (6.3-8.2) g/dL Albumin (3.5-5.0) g/dL Globulin (1.7-4.1) g/dL Albumin/Globulin Ratio (1.0-2.8) Procalcitonin 0.38 (<0.5) ng/mL Point of Care Testing Glucose POC 122 Urine Dip Bedside Urine Glucose 250 mg/dl Bedside Urine Bilirubin - Negative Bedside Urine Ketone - Negative Urine Specific Kitzmiller 1.015 Bedside Urine Occult Blood - Negative Bedside Urine pH 7.0 Bedside Urine Protein - Negative Bedside Urine Urobilinogen +/- 1mg Bedside Urine Nitrite - Negative Bedside Urine Leukocytes - Negative Esterase Imaging Data US - abdomen: Radiologist's impression: Alissa Kirby 68 F [address] [address] Ultrasound Report Signed Patient: Alissa Kirby AMR#: [id number] : 1950cct:[id number] Age/Sex: 68 / FDate of Service: 01/02/19 Loc: ED Accession Number: [id number] Procedure: US abdomen limited Ordering Provider: Tarah Alonzo PROCEDURE: US ABDOMEN LIMITED INDICATIONS: RIGHT UPPER QUADRANT PAIN TECHNIQUE: Real-time focused scanning was performed of the abdomen, with image documentation. COMPARISON: [facility], US, US ABDOMEN COMPLETE, 06/24/2018, 10:47. FINDINGS: Liver size is not measured. Liver has a diffusely increased echotexture which typically represents fatty infiltration; however, finding is nonspecific and other etiologies including hepatic cirrhosis can have a similar appearance. Please correlate with clinical and laboratory findings. Multiple small gallstones noted in gallbladder. Gallbladder is distended. Gallbladder wall is at the upper limits of normal for thickness at 3.0 mm. No sonographic Mayorga sign. No pericholecystic fluid. Common bile duct is dilated at 9.5 mm. Intrahepatic ducts are mildly dilated. Pancreas is not well-visualized due to bowel gas and cannot be evaluated. IMPRESSION: 1. Echogenic liver. Finding typically represents fatty infiltration; however, finding is nonspecific and correlation with clinical and laboratory findings is recommended to exclude other etiologies including hepatic cirrhosis. 2. Gallstones with gallbladder wall at the upper limits of normal in thickness. Please correlate with clinical data to exclude early manifestation of cholecystitis. 3. Common bile duct dilatation and intrahepatic bile duct dilatation. Recommend correlation with laboratory data to exclude biliary obstruction. If there is clinical concern for delayed obstruction, recommend gastroenterology consultation. Dictated by: Elvira Henry MD, PhD on 01/02/2019 at 20:31 Approved by: Elvira Henry MD, PhD on 01/02/2019 at 20:35 CT scan - abdomen: Radiologist's impression: [address] [address] [address] Scan Report Signed Patient: Alissa Kirby AMR#: [id number] : 1Acct:[id number] Age/Sex: 68 / FDate of Service: 01/02/19 Loc: ED Accession Number: [id number] Procedure: CT abdomen pelvis w con Ordering Provider: Tarah Alonzo OPEN SOURCE DEVELOPER- PROCEDURE: CT ABDOMEN PELVIS W CON INDICATIONS: erythema and swelling extending from inc site, TECHNIQUE: After the administration of intravenous contrast, 5 mm thick sections acquired from the diaphragm to the symphysis. 5 mm coronal and sagittal reformats were acquired. For radiation dose reduction, the following was used: automated exposure control, adjustment of mA and/or kV according to patient size. COMPARISON: [facility], MR, MR ABDOMEN WO CON, 09/23/2018, 7:18. [facility], CT, CT ABDOMEN PELVIS W CON, 09/17/2018, 14:08. FINDINGS: Image quality: Excellent. ABDOMEN: Lung bases: Lung bases are clear. Heart size is normal. Solid organs: Liver is normal in size and enhancement. Gallbladder is distended. Gallbladder wall is prominent.. Biliary system is mildly dilated with mild intrahepatic biliary tree dilatation and common bile duct measuring up to 10 mm.. Pancreas enhances normally. Spleen is normal in size and enhancement. No adrenal nodules. Kidneys demonstrate normal size and enhancement, without hydronephrosis. Peritoneum and bowel: Bowel loops demonstrate normal wall thickness and caliber. No free fluid or air. Nodes and vessels: No retroperitoneal or mesenteric adenopathy by size criteria. Aorta and inferior vena cava are normal in size. Miscellaneous: No ventral hernias. PELVIS: Genitourinary: Bladder wall thickness is normal. Miscellaneous: No inguinal hernias. There is a 7.9 x 5.7 x 5.4 cm low-density fluid collection in the left groin reportedly in the region of recent surgical intervention likely represents seroma, however infected fluid collection/abscess can't be excluded by imaging alone. Enlarged bilateral inguinal lymph nodes are noted. Bones: No suspicious bony lesions. No vertebral body compression fractures. IMPRESSION: 1. 7.9 x 5.7 x 5.4 cm fluid collection in the right groin which could represent postsurgical seroma, however infected fluid collections as abscess can't be excluded by imaging alone. 2. Prominence of the gallbladder and gallbladder wall is massively changed compared to prior exams. If there is clinical concern for cholecystitis, recommend abdominal ultrasound for further evaluation. 3. Mild intra-and extrahepatic biliary tree dilatation not significantly changed compared to prior exams. Recommend correlation with laboratory data to exclude biliary obstruction. If there is clinical concern for obstruction, gastroenterology consultation is recommended. Dictated by: Elvira Henry MD, PhD on 01/02/2019 at 18:53 Approved by: Elvira Henry MD, PhD on 01/02/2019 at 19:02 [facility] Narrative Medical decision making narrative: The patient is a 68-year-old female who presents to the emergency department tachycardic with high fever. Fluids per sepsis protocol were ordered. She was given IV vancomycin and IV Zosyn. Her lactate was elevated, her procalcitonin was elevated. He given concern of a postoperative infection/abscess, I obtained a CT, which illustrate a likely abscess in her right inguinal area. I did have Dr. Ba evaluate the patient on arrival given that she saw the patient yesterday and her worrisome status. She did have some pain to palpation of right upper quadrant, so I did obtain an ultrasound of her gallbladder given her CT results and ultrasound illustrate gallbladder wall within upper limits normal. The patient appeared much more comfortable after fluids and antibiotics. She was visiting with her sisters and her exam room. The patient's blood sugar did decrease several times throughout her stay in the emergency department, but responded well to D 50. She has not had any insulin since last night. The patient stated her pain was much improved, and she was able to sleep. Given that the patient had her surgery at [facility], I contacted them to see if they had availability to transfer the patient. They stated they did not have beds available. I spoke with ANGY Salazar who was on-call for Dr. Leggett, to make him aware of the situation. He also stated that they do not have any beds. I spoke with Dr. Mckeon from [facility] to make her where the patient said that she could follow her on her admission at this facility. I spoke with our hospitalist KENYA who kindly accepted the patient for admission. At 10:30 p.m. she denied any needs his stated she was comfortable and in accordance with her planned admission. <Yuval Tomas, DO - Last Filed: 01/02/19 23:52> Lab Data Lab Results 01/02/19 01/02/19 01/02/19 Range/Units 17:25 17:25 17:25 WBC 2.2 L (4.5-11.0) X10^3/uL RBC 4.55 (4.0-5.2) X10^6/uL Hgb 13.1 (12.0-16.0) g/dL Hct 39.6 (36-46) % MCV 87.1 (80-100) fL MCH 28.8 (26-34) PG MCHC 33.1 (30-36) % RDW 12.9 (11.6-14.8) % Plt Count 172 (150-400) X10^3/uL Neut % (Auto) 87.1 H (50-75) % Lymph % (Auto) 12.2 L (25-40) % Terrell % (Auto) 0.5 L (3-14) % Eos % (Auto) 0.1 L (2-4) % Baso % (Auto) 0.1 (0-2) % Neut # (Auto) 1900 (7546-2113) /uL Lymph # (Auto) 300 L (0796-3484) /uL Terrell # (Auto) 0 (0-900) /uL Eos # (Auto) 0 (0-450) /uL Baso # (Auto) 0 (0-100) /uL Sodium 138 (137-145) mmol/L Potassium 3.9 (3.4-5.1) mmol/L Chloride 99 (98-107) mmol/L Carbon Dioxide 31 (22-32) mmol/L BUN 14 (7-17) mg/dL Creatinine 0.50 L (0.52-1.04) mg/dL Estimated GFR > 60.0 (>60) mL/min BUN/Creatinine Ratio 28.0 H (6-22) Glucose 111 H (80-110) mg/dL Lactate 2.9 H (0.7-2.1) mmol/L Calcium 9.5 (8.4-10.2) mg/dL Total Bilirubin 0.7 (0.2-1.3) mg/dL AST 77 H (14-36) IU/L ALT 34 (9-52) IU/L Alkaline Phosphatase 133 H (38-126) U/L Total Protein 7.0 (6.3-8.2) g/dL Albumin 3.7 (3.5-5.0) g/dL Globulin 3.3 (1.7-4.1) g/dL Albumin/Globulin Ratio 1.1 (1.0-2.8) Procalcitonin (<0.5) ng/mL 01/02/19 01/02/19 Range/Units 17:25 19:25 WBC (4.5-11.0) X10^3/uL RBC (4.0-5.2) X10^6/uL Hgb (12.0-16.0) g/dL Hct (36-46) % MCV (80-100) fL MCH (26-34) PG MCHC (30-36) % RDW (11.6-14.8) % Plt Count (150-400) X10^3/uL Neut % (Auto) (50-75) % Lymph % (Auto) (25-40) % Terrell % (Auto) (3-14) % Eos % (Auto) (2-4) % Baso % (Auto) (0-2) % Neut # (Auto) (1386-5663) /uL Lymph # (Auto) (2735-8042) /uL Terrell # (Auto) (0-900) /uL Eos # (Auto) (0-450) /uL Baso # (Auto) (0-100) /uL Sodium (137-145) mmol/L Potassium (3.4-5.1) mmol/L Chloride (98-107) mmol/L Carbon Dioxide (22-32) mmol/L BUN (7-17) mg/dL Creatinine (0.52-1.04) mg/dL Estimated GFR (>60) mL/min BUN/Creatinine Ratio (6-22) Glucose (80-110) mg/dL Lactate 1.8 (0.7-2.1) mmol/L Calcium (8.4-10.2) mg/dL Total Bilirubin (0.2-1.3) mg/dL AST (14-36) IU/L ALT (9-52) IU/L Alkaline Phosphatase (38-126) U/L Total Protein (6.3-8.2) g/dL Albumin (3.5-5.0) g/dL Globulin (1.7-4.1) g/dL Albumin/Globulin Ratio (1.0-2.8) Procalcitonin 0.38 (<0.5) ng/mL Point of Care Testing Glucose POC 122 Urine Dip Bedside Urine Glucose 250 mg/dl Bedside Urine Bilirubin - Negative Bedside Urine Ketone - Negative Urine Specific Kitzmiller 1.015 Bedside Urine Occult Blood - Negative Bedside Urine pH 7.0 Bedside Urine Protein - Negative Bedside Urine Urobilinogen +/- 1mg Bedside Urine Nitrite - Negative Bedside Urine Leukocytes - Negative Esterase Discharge Plan Departure Patient Disposition: Admitted As Inpatient Clinical Impression: Post-operative infection Qualifiers: Encounter type: initial encounter Postoperative infection type: sepsis Qualified Code(s): T81.44XA - Sepsis following a procedure, initial encounter Admit Date/Time: 01/02/19 22:37 Admit Provider: Andrea Ontiveros <Yuval Tomas DO - Last Filed: 01/02/19 23:52> Cosign ED Attending Cosignature Attestation: I was available for consultation during this patient's emergency department encounter
--- NOTE | 2019-01-02 18:36 | ED_ITS ---
HPI - Fever <Tarah Alonzo, WAG[employer] W[employer]ER-BC - Last Filed: 01/02/19 22:46> General Chief Complaint: Fever Stated Complaint: fever, feels like she is freezing Time Seen by Provider: 01/02/19 17:04 Source: patient and family Mode of arrival: ambulatory Limitations: no limitations History of Present Illness HPI Narrative: The patient is a 68-year-old female type 1 diabetic with history of dehiscence of her surgical wound and cellulitis who presents with her for chief complaint of fever and chills. She presents today after being started on Bactrim at this facility yesterday. She complains of fever, chills, general malaise. She stated she started feeling slightly worse last night, but felt much worse today. She has had 1 dose of Bactrim. She has not followed up with her surgeon. She has appointment tomorrow. She denies any vomiting, but complains of nausea. Of note she has been on doxy for lower leg cellulitis. She is a brittle type 1 diabetic. Related Data Home Medications Medication Instructions Recorded Confirmed atorvastatin 20 mg PO DAILY #0 03/16/10 06/24/18 bupropion HCl 150 mg PO BID #0 03/16/10 06/24/18 cholecalciferol (vitamin D3) 1,000 unit PO DAILY #0 03/16/10 06/24/18 [Vitamin D3] escitalopram oxalate [Lexapro] 2 tab PO DAILY #0 03/16/10 06/24/18 levothyroxine 112 mcg PO DAILY #0 03/16/10 06/24/18 morphine 15 mg PO Q8H #0 03/16/10 06/24/18 multivitamin 1 tab PO DAILY #0 03/16/10 06/24/18 olanzapine 2.5 mg PO BEDTIME #0 03/16/10 06/24/18 omeprazole 20 mg PO Q DAY #0 03/16/10 06/24/18 cevimeline 1 cap PO TID 06/24/18 06/24/18 cyclobenzaprine 0.5 - 1 tab PO TID PRN 06/24/18 06/24/18 furosemide 1 tab PO DAILY PRN 06/24/18 06/24/18 insulin aspart U-100 [Novolog 4 - 6 unit SUBCUT AC 06/24/18 06/24/18 Flexpen U-100 Insulin] lisinopril 2.5 mg PO DAILY 06/24/18 06/24/18 Previous Rx's Medication Instructions Recorded gabapentin 1,200 mg PO BEDTIME #0 tab 06/27/18 hydrocodone-acetaminophen 1 tab PO TID #0 tab 06/27/18 insulin glargine [Lantus Solostar 50 unit SUBCUT BEDTIME #0 ml 06/27/18 U-100 Insulin] ondansetron 4 mg PO TID PRN #10 tab 06/27/18 sulfamethoxazole-trimethoprim 1 tab PO BID #14 tab 06/27/18 [Bactrim DS] clindamycin HCl 300 mg PO QID #40 cap 06/28/18 cephalexin [Keflex] 500 mg PO TID #21 cap 08/13/18 doxycycline hyclate 100 mg PO BID #20 tab 08/28/18 doxycycline hyclate 100 mg PO BID 10 Days #20 tab 12/26/18 sulfamethoxazole-trimethoprim 1 tab PO BID 7 Days #14 tab 01/01/19 [Bactrim DS] Allergies Allergy/AdvReac Type Severity Reaction Status Date / Time No Known Drug Allergies Allergy Verified 01/01/19 07:53 Review of Systems <CARON Elizabeth - Last Filed: 01/02/19 22:46> Review of Systems GENERAL: See HPI HEENT: Denies sinus pain, ear pain, sore throat, difficulty swallowing, dizziness. RESPIRATORY: Denies dyspnea, cough, wheezing, hemoptysis, sputum. CARDIOVASCULAR: Denies chest pain, palpitations, orthopnea, edema, GASTROINTESTINAL: Denies nausea, vomiting, abdominal pain, diarrhea, constipation, melena. : Denies dysuria, frequency, incontinence, hematuria, urinary retention. MUSCULOSKELETAL: denies weakness, joint pain, or bony pain SKIN: See HPI NEUROLOGIC: Denies weakness, headache, numbness, change in speech, confusion, seizures, incoordination. PSYCHIATRIC: No concerning psychosocial issues. 12 point review of systems is negative except for those stated above PFSH <CARON Elizabeth - Last Filed: 01/02/19 22:46> Medical History Fibromyalgia (Acute) Depression (Chronic) Diabetes (Chronic) Fibromyalgia (Chronic) GERD (gastroesophageal reflux disease) (Chronic) Hyperlipidemia (Chronic) Hypothyroidism (Chronic) Meningioma (Chronic) Restless leg syndrome (Chronic) Sjogren's disease (Chronic) Sleep apnea (Chronic) Spinal stenosis, lumbar (Chronic) Venous stasis dermatitis of both lower extremities (Chronic) Social History household members: spouse and children Smoking Status: Current every day smoker Exam <CARON Elizabeth - Last Filed: 01/02/19 22:46> Narrative Exam Narrative: GENERAL: Chronically ill-appearing lady lying on stretcher covered in blankets. Fatigue. HEAD: Atraumatic. Normocephalic. No temporal or scalp tenderness. EYES: Pupils equal round and reactive. Extraocular motions intact. No scleral icterus. No injection or drainage. ENT: Nose without bleeding, purulent drainage or septal hematoma. Throat without erythema, tonsillar hypertrophy or exudate. Uvula midline. Airway patent. NECK: Trachea midline. No JVD or lymphadenopathy. Supple, nontender, no meningeal signs. CARDIOVASCULAR: Tachycardic rate and regular rhythm RESPIRATORY: Clear to auscultation. Breath sounds equal bilaterally. No wheezes, rales, or rhonchi. No cough. No increased respiratory effort. No accessory muscle use. GASTROINTESTINAL: Abdomen soft, nondistended. No hepato-splenomegaly, or palpable masses. No guarding. Diffuse pain to palpation right lower quadrant towards inguinal area EXTREMITIES: No clubbing, cyanosis, or edema. No joint tenderness, effusion, or edema noted. BACK: Nontender without deformity or crepitance. No flank tenderness. NEURO: AOx3. SKIN: Right groin incision site has single suture in place, leaking fluid. Erythematous area stretching across the lower stomach which is warm to palpation. erythema also noted left lower leg. Initial Vital Signs Initial Vital Signs: Vital Signs Temperature 99.9 F H 01/02/19 16:55 Pulse Rate 113 H 01/02/19 16:55 Respiratory Rate 23 01/02/19 16:55 Blood Pressure 157/60 H 01/02/19 16:55 Pulse Oximetry 96 01/02/19 16:55 <Yuval Tomas DO - Last Filed: 01/02/19 23:52> Initial Vital Signs Initial Vital Signs: Vital Signs Temperature 99.9 F H 01/02/19 16:55 Pulse Rate 113 H 01/02/19 16:55 Respiratory Rate 23 01/02/19 16:55 Blood Pressure 157/60 H 01/02/19 16:55 Pulse Oximetry 96 01/02/19 16:55 Course <Tarah Alonzo, [employer]BC - Last Filed: 01/02/19 22:46> Course Narrative: I checked on the patient several times throughout her stay in the emergency department. Orders Ordered: ED Orders 01/02/19 16:59 XR chest 1V Stat 01/02/19 17:25 Complete Blood Count AUTO DIFF Stat Comprehensive Metabolic Panel Stat Lactate (Lactic Acid) Stat Procalcitonin Stat 01/02/19 17:32 CT abdomen pelvis w con Stat 01/02/19 17:50 Blood Culture Stat 01/02/19 19:17 US abdomen limited Stat Dextrose (D50w) 12.5 gm IV PRN PRN PRN Reason: Hypoglycemia Last Admin: 01/02/19 22:19 Dose: 12.5 gm Admin: 01/02/19 19:12 Dose: 12.5 gm Piperacillin/Tazobactam/Dextrose (Zosyn) 3.375 gm in 50 mls @ 100 mls/hr IV Q8H FRANCISCO JAVIER Last Infusion: 01/02/19 19:13 Dose: 100 mls/hr Admin: 01/02/19 17:57 Dose: 100 mls/hr Discontinued Medications Acetaminophen (Tylenol) 975 mg PO NOW ONE Stop: 01/02/19 18:07 Last Admin: 01/02/19 18:50 Dose: 975 mg Dextrose (D50w) 25 gm IV NOW ONE Stop: 01/02/19 20:18 Last Admin: 01/02/19 20:18 Dose: Not Given Sodium Chloride (Normal Saline 0.9%) 2,610 mls @ 870 mls/hr 30 ml/kg infuse over 3 hr (2610 ml) IV NOW ONE Stop: 01/02/19 20:31 Last Infusion: 01/02/19 21:43 Dose: 0 mls/hr Admin: 01/02/19 18:01 Dose: 870 mls/hr Vancomycin HCl/Dextrose (Vancomycin) 1,500 mg in 300 mls @ 200 mls/hr IV NOW ONE Stop: 01/02/19 19:03 Last Infusion: 01/02/19 21:43 Dose: 0 mls/hr Admin: 01/02/19 19:12 Dose: 200 mls/hr Ondansetron HCl (Zofran) 4 mg IV NOW ONE Stop: 01/02/19 17:45 Last Admin: 01/02/19 17:40 Dose: 4 mg Vital Signs - 8 hr 01/02/19 16:55 01/02/19 17:22 01/02/19 17:58 Temperature 99.9 F H Pulse Rate 113 H 113 H 101 H Respiratory Rate 23 18 29 H Blood Pressure 157/60 H Blood Pressure [Right Arm] 130/74 119/77 Pulse Oximetry 96 94 90 L 01/02/19 18:50 01/02/19 19:32 01/02/19 20:38 Temperature 103.3 F H Pulse Rate 101 H 93 H Respiratory Rate 20 17 Blood Pressure Blood Pressure [Right Arm] 97/75 101/39 L Pulse Oximetry 93 90 L 01/02/19 21:19 01/02/19 22:55 Temperature Pulse Rate 87 84 Respiratory Rate 17 17 Blood Pressure Blood Pressure [Right Arm] 100/41 L 92/45 L Pulse Oximetry 96 97 <Yuval Tomas, DO - Last Filed: 01/02/19 23:52> Orders Ordered: ED Orders 01/02/19 16:59 XR chest 1V Stat 01/02/19 17:25 Complete Blood Count AUTO DIFF Stat Comprehensive Metabolic Panel Stat Lactate (Lactic Acid) Stat Procalcitonin Stat 01/02/19 17:32 CT abdomen pelvis w con Stat 01/02/19 17:50 Blood Culture Stat 01/02/19 19:17 US abdomen limited Stat Dextrose (D50w) 12.5 gm IV PRN PRN PRN Reason: Hypoglycemia Last Admin: 01/02/19 22:19 Dose: 12.5 gm Admin: 01/02/19 19:12 Dose: 12.5 gm Piperacillin/Tazobactam/Dextrose (Zosyn) 3.375 gm in 50 mls @ 100 mls/hr IV Q8H FRANCISCO JAVIER Last Infusion: 01/02/19 19:13 Dose: 100 mls/hr Admin: 01/02/19 17:57 Dose: 100 mls/hr Discontinued Medications Acetaminophen (Tylenol) 975 mg PO NOW ONE Stop: 01/02/19 18:07 Last Admin: 01/02/19 18:50 Dose: 975 mg Dextrose (D50w) 25 gm IV NOW ONE Stop: 01/02/19 20:18 Last Admin: 01/02/19 20:18 Dose: Not Given Sodium Chloride (Normal Saline 0.9%) 2,610 mls @ 870 mls/hr 30 ml/kg infuse over 3 hr (2610 ml) IV NOW ONE Stop: 01/02/19 20:31 Last Infusion: 01/02/19 21:43 Dose: 0 mls/hr Admin: 01/02/19 18:01 Dose: 870 mls/hr Vancomycin HCl/Dextrose (Vancomycin) 1,500 mg in 300 mls @ 200 mls/hr IV NOW ONE Stop: 01/02/19 19:03 Last Infusion: 01/02/19 21:43 Dose: 0 mls/hr Admin: 01/02/19 19:12 Dose: 200 mls/hr Ondansetron HCl (Zofran) 4 mg IV NOW ONE Stop: 01/02/19 17:45 Last Admin: 01/02/19 17:40 Dose: 4 mg Vital Signs - 8 hr 01/02/19 16:55 01/02/19 17:22 01/02/19 17:58 Temperature 99.9 F H Pulse Rate 113 H 113 H 101 H Respiratory Rate 23 18 29 H Blood Pressure 157/60 H Blood Pressure [Right Arm] 130/74 119/77 Pulse Oximetry 96 94 90 L 01/02/19 18:50 01/02/19 19:32 01/02/19 20:38 Temperature 103.3 F H Pulse Rate 101 H 93 H Respiratory Rate 20 17 Blood Pressure Blood Pressure [Right Arm] 97/75 101/39 L Pulse Oximetry 93 90 L 01/02/19 21:19 01/02/19 22:55 Temperature Pulse Rate 87 84 Respiratory Rate 17 17 Blood Pressure Blood Pressure [Right Arm] 100/41 L 92/45 L Pulse Oximetry 96 97 MDM - Fever <CARON Elizabeth - Last Filed: 01/02/19 22:46> Lab Data Result diagrams: 01/02/19 17:25 01/02/19 17:25 Lab Results 0501/02/19 01/02/19 Range/Units 17:25 17:25 17:25 WBC 2.2 L (4.5-11.0) X10^3/uL RBC 4.55 (4.0-5.2) X10^6/uL Hgb 13.1 (12.0-16.0) g/dL Hct 39.6 (36-46) % MCV 87.1 (80-100) fL MCH 28.8 (26-34) PG MCHC 33.1 (30-36) % RDW 12.9 (11.6-14.8) % Plt Count 172 (150-400) X10^3/uL Neut % (Auto) 87.1 H (50-75) % Lymph % (Auto) 12.2 L (25-40) % [place] % (Auto) 0.5 L (3-14) % Eos % (Auto) 0.1 L (2-4) % Baso % (Auto) 0.1 (0-2) % Neut # (Auto) 1900 (9909-1049) /uL Lymph # (Auto) 300 L (6713-7264) /uL [place] # (Auto) 0 (0-900) /uL Eos # (Auto) 0 (0-450) /uL Baso # (Auto) 0 (0-100) /uL Sodium 138 (137-145) mmol/L Potassium 3.9 (3.4-5.1) mmol/L Chloride 99 (98-107) mmol/L Carbon Dioxide 31 (22-32) mmol/L BUN 14 (7-17) mg/dL Creatinine 0.50 L (0.52-1.04) mg/dL Estimated GFR > 60.0 (>60) mL/min BUN/Creatinine Ratio 28.0 H (6-22) Glucose 111 H (80-110) mg/dL Lactate 2.9 H (0.7-2.1) mmol/L Calcium 9.5 (8.4-10.2) mg/dL Total Bilirubin 0.7 (0.2-1.3) mg/dL AST 77 H (14-36) IU/L ALT 34 (9-52) IU/L Alkaline Phosphatase 133 H (38-126) U/L Total Protein 7.0 (6.3-8.2) g/dL Albumin 3.7 (3.5-5.0) g/dL Globulin 3.3 (1.7-4.1) g/dL Albumin/Globulin Ratio 1.1 (1.0-2.8) Procalcitonin (<0.5) ng/mL 01/02/19 01/02/19 Range/Units 17:25 19:25 WBC (4.5-11.0) X10^3/uL RBC (4.0-5.2) X10^6/uL Hgb (12.0-16.0) g/dL Hct (36-46) % MCV (80-100) fL MCH (26-34) PG MCHC (30-36) % RDW (11.6-14.8) % Plt Count (150-400) X10^3/uL Neut % (Auto) (50-75) % Lymph % (Auto) (25-40) % [place] % (Auto) (3-14) % Eos % (Auto) (2-4) % Baso % (Auto) (0-2) % Neut # (Auto) (9893-1521) /uL Lymph # (Auto) (4001-4326) /uL [place] # (Auto) (0-900) /uL Eos # (Auto) (0-450) /uL Baso # (Auto) (0-100) /uL Sodium (137-145) mmol/L Potassium (3.4-5.1) mmol/L Chloride (98-107) mmol/L Carbon Dioxide (22-32) mmol/L BUN (7-17) mg/dL Creatinine (0.52-1.04) mg/dL Estimated GFR (>60) mL/min BUN/Creatinine Ratio (6-22) Glucose (80-110) mg/dL Lactate 1.8 (0.7-2.1) mmol/L Calcium (8.4-10.2) mg/dL Total Bilirubin (0.2-1.3) mg/dL AST (14-36) IU/L ALT (9-52) IU/L Alkaline Phosphatase (38-126) U/L Total Protein (6.3-8.2) g/dL Albumin (3.5-5.0) g/dL Globulin (1.7-4.1) g/dL Albumin/Globulin Ratio (1.0-2.8) Procalcitonin 0.38 (<0.5) ng/mL Point of Care Testing Glucose POC 122 Urine Dip Bedside Urine Glucose 250 mg/dl Bedside Urine Bilirubin - Negative Bedside Urine Ketone - Negative Urine Specific [place] 1.015 Bedside Urine Occult Blood - Negative Bedside Urine pH 7.0 Bedside Urine Protein - Negative Bedside Urine Urobilinogen +/- 1mg Bedside Urine Nitrite - Negative Bedside Urine Leukocytes - Negative Esterase Imaging Data US - abdomen: Radiologist's impression: Alissa Kirby 68 F [address] [address] Ultrasound Report Signed Patient: Alissa Kirby AMR#: [id number] : 1950cct:[id number] Age/Sex: 68 / FDate of Service: 01/02/19 Loc: ED Accession Number: [id number] Procedure: US abdomen limited Ordering Provider: Tarah Alonzo PROCEDURE: US ABDOMEN LIMITED INDICATIONS: RIGHT UPPER QUADRANT PAIN TECHNIQUE: Real-time focused scanning was performed of the abdomen, with image documentation. COMPARISON: [facility], US, US ABDOMEN COMPLETE, 06/24/2018, 10:47. FINDINGS: Liver size is not measured. Liver has a diffusely increased echotexture which typically represents fatty infiltration; however, finding is nonspecific and other etiologies including hepatic cirrhosis can have a similar appearance. Please correlate with clinical and laboratory findings. Multiple small gallstones noted in gallbladder. Gallbladder is distended. Gallbladder wall is at the upper limits of normal for thickness at 3.0 mm. No sonographic [place] sign. No pericholecystic fluid. Common bile duct is dilated at 9.5 mm. Intrahepatic ducts are mildly dilated. Pancreas is not well-visualized due to bowel gas and cannot be evaluated. IMPRESSION: 1. Echogenic liver. Finding typically represents fatty infiltration; however, finding is nonspecific and correlation with clinical and laboratory findings is recommended to exclude other etiologies including hepatic cirrhosis. 2. Gallstones with gallbladder wall at the upper limits of normal in thickness. Please correlate with clinical data to exclude early manifestation of cholecystitis. 3. Common bile duct dilatation and intrahepatic bile duct dilatation. Recommend correlation with laboratory data to exclude biliary obstruction. If there is clinical concern for delayed obstruction, recommend gastroenterology consultation. Dictated by: Elvira Henry MD, PhD on 01/02/2019 at 20:31 Approved by: Elvira Henry MD, PhD on 01/02/2019 at 20:35 CT scan - abdomen: Radiologist's impression: [address] [address] [address] Scan Report Signed Patient: Alissa Kirby AMR#: [id number] : 1Acct:[id number] Age/Sex: 68 / FDate of Service: 01/02/19 Loc: ED Accession Number: [id number] Procedure: CT abdomen pelvis w con Ordering Provider: Tarah Alonzo WAGON WASHER- PROCEDURE: CT ABDOMEN PELVIS W CON INDICATIONS: erythema and swelling extending from inc site, TECHNIQUE: After the administration of intravenous contrast, 5 mm thick sections acquired from the diaphragm to the symphysis. 5 mm coronal and sagittal reformats were acquired. For radiation dose reduction, the following was used: automated exposure control, adjustment of mA and/or kV according to patient size. COMPARISON: [facility], MR, MR ABDOMEN WO CON, 09/23/2018, 7:18. [facility], CT, CT ABDOMEN PELVIS W CON, 09/17/2018, 14:08. FINDINGS: Image quality: Excellent. ABDOMEN: Lung bases: Lung bases are clear. Heart size is normal. Solid organs: Liver is normal in size and enhancement. Gallbladder is distended. Gallbladder wall is prominent.. Biliary system is mildly dilated with mild intrahepatic biliary tree dilatation and common bile duct measuring up to 10 mm.. Pancreas enhances normally. Spleen is normal in size and enhancement. No adrenal nodules. Kidneys demonstrate normal size and enhancement, without hydronephrosis. Peritoneum and bowel: Bowel loops demonstrate normal wall thickness and caliber. No free fluid or air. Nodes and vessels: No retroperitoneal or mesenteric adenopathy by size [place]. Aorta and inferior vena cava are normal in size. Miscellaneous: No ventral hernias. PELVIS: Genitourinary: Bladder wall thickness is normal. Miscellaneous: No inguinal hernias. There is a 7.9 x 5.7 x 5.4 cm low-density fluid collection in the left groin reportedly in the region of recent surgical intervention likely represents seroma, however infected fluid collection/abscess can't be excluded by imaging alone. Enlarged bilateral inguinal lymph nodes are noted. Bones: No suspicious bony lesions. No vertebral body compression fractures. IMPRESSION: 1. 7.9 x 5.7 x 5.4 cm fluid collection in the right groin which could represent postsurgical seroma, however infected fluid collections as abscess can't be excluded by imaging alone. 2. Prominence of the gallbladder and gallbladder wall is massively changed compared to prior exams. If there is clinical concern for cholecystitis, recommend abdominal ultrasound for further evaluation. 3. Mild intra-and extrahepatic biliary tree dilatation not significantly changed compared to prior exams. Recommend correlation with laboratory data to exclude biliary obstruction. If there is clinical concern for obstruction, gastroenterology consultation is recommended. Dictated by: Elvira Henry MD, PhD on 01/02/2019 at 18:53 Approved by: Elvira Hnery MD, PhD on 01/02/2019 at 19:02 [facility] Narrative Medical decision making narrative: The patient is a 68-year-old female who presents to the emergency department tachycardic with high fever. Fluids per sepsis protocol were ordered. She was given IV vancomycin and IV Zosyn. Her lactate was elevated, her procalcitonin was elevated. He given concern of a postoperative infection/abscess, I obtained a CT, which illustrate a likely abscess in her right inguinal area. I did have Dr. Ba evaluate the patient on arrival given that she saw the patient yesterday and her worrisome status. She did have some pain to palpation of right upper quadrant, so I did obtain an ultrasound of her gallbladder given her CT results and ultrasound illustrate gallbladder wall within upper limits normal. The patient appeared much more comfortable after fluids and antibiotics. She was visiting with her sisters and her exam room. The patient's blood sugar did decrease several times throughout her stay in the emergency department, but responded well to D 50. She has not had any insulin since last night. The patient stated her pain was much improved, and she was able to sleep. Given that the patient had her surgery at [facility], I contacted them to see if they had availability to transfer the patient. They stated they did not have beds available. I spoke with ANGY Salazar who was on-call for Dr. Leggett, to make him aware of the situation. He also stated that they do not have any beds. I spoke with Dr. Mckeon from [facility] to make her where the patient said that she could follow her on her admission at this facility. I spoke with our hospitalist KENYA who kindly accepted the patient for admission. At 10:30 p.m. she denied any needs his stated she was comfortable and in accordance with her planned admission. <Yuval Genoveva, DO - Last Filed: 01/02/19 23:52> Lab Data Lab Results 01/02/19 01/02/19 01/02/19 Range/Units 17:25 17:25 17:25 WBC 2.2 L (4.5-11.0) X10^3/uL RBC 4.55 (4.0-5.2) X10^6/uL Hgb 13.1 (12.0-16.0) g/dL Hct 39.6 (36-46) % MCV 87.1 (80-100) fL MCH 28.8 (26-34) PG MCHC 33.1 (30-36) % RDW 12.9 (11.6-14.8) % Plt Count 172 (150-400) X10^3/uL Neut % (Auto) 87.1 H (50-75) % Lymph % (Auto) 12.2 L (25-40) % [place] % (Auto) 0.5 L (3-14) % Eos % (Auto) 0.1 L (2-4) % Baso % (Auto) 0.1 (0-2) % Neut # (Auto) 1900 (6240-9115) /uL Lymph # (Auto) 300 L (0953-5170) /uL [place] # (Auto) 0 (0-900) /uL Eos # (Auto) 0 (0-450) /uL Baso # (Auto) 0 (0-100) /uL Sodium 138 (137-145) mmol/L Potassium 3.9 (3.4-5.1) mmol/L Chloride 99 (98-107) mmol/L Carbon Dioxide 31 (22-32) mmol/L BUN 14 (7-17) mg/dL Creatinine 0.50 L (0.52-1.04) mg/dL Estimated GFR > 60.0 (>60) mL/min BUN/Creatinine Ratio 28.0 H (6-22) Glucose 111 H (80-110) mg/dL Lactate 2.9 H (0.7-2.1) mmol/L Calcium 9.5 (8.4-10.2) mg/dL Total Bilirubin 0.7 (0.2-1.3) mg/dL AST 77 H (14-36) IU/L ALT 34 (9-52) IU/L Alkaline Phosphatase 133 H (38-126) U/L Total Protein 7.0 (6.3-8.2) g/dL Albumin 3.7 (3.5-5.0) g/dL Globulin 3.3 (1.7-4.1) g/dL Albumin/Globulin Ratio 1.1 (1.0-2.8) Procalcitonin (<0.5) ng/mL 01/02/19 01/02/19 Range/Units 17:25 19:25 WBC (4.5-11.0) X10^3/uL RBC (4.0-5.2) X10^6/uL Hgb (12.0-16.0) g/dL Hct (36-46) % MCV (80-100) fL MCH (26-34) PG MCHC (30-36) % RDW (11.6-14.8) % Plt Count (150-400) X10^3/uL Neut % (Auto) (50-75) % Lymph % (Auto) (25-40) % [place] % (Auto) (3-14) % Eos % (Auto) (2-4) % Baso % (Auto) (0-2) % Neut # (Auto) (7512-1195) /uL Lymph # (Auto) (7751-9728) /uL [place] # (Auto) (0-900) /uL Eos # (Auto) (0-450) /uL Baso # (Auto) (0-100) /uL Sodium (137-145) mmol/L Potassium (3.4-5.1) mmol/L Chloride (98-107) mmol/L Carbon Dioxide (22-32) mmol/L BUN (7-17) mg/dL Creatinine (0.52-1.04) mg/dL Estimated GFR (>60) mL/min BUN/Creatinine Ratio (6-22) Glucose (80-110) mg/dL Lactate 1.8 (0.7-2.1) mmol/L Calcium (8.4-10.2) mg/dL Total Bilirubin (0.2-1.3) mg/dL AST (14-36) IU/L ALT (9-52) IU/L Alkaline Phosphatase (38-126) U/L Total Protein (6.3-8.2) g/dL Albumin (3.5-5.0) g/dL Globulin (1.7-4.1) g/dL Albumin/Globulin Ratio (1.0-2.8) Procalcitonin 0.38 (<0.5) ng/mL Point of Care Testing Glucose POC 122 Urine Dip Bedside Urine Glucose 250 mg/dl Bedside Urine Bilirubin - Negative Bedside Urine Ketone - Negative Urine Specific [place] 1.015 Bedside Urine Occult Blood - Negative Bedside Urine pH 7.0 Bedside Urine Protein - Negative Bedside Urine Urobilinogen +/- 1mg Bedside Urine Nitrite - Negative Bedside Urine Leukocytes - Negative Esterase Discharge Plan Departure Patient Disposition: Admitted As Inpatient Clinical Impression: Post-operative infection Qualifiers: Encounter type: initial encounter Postoperative infection type: sepsis Qual ified Code(s): T81.44XA - Sepsis following a procedure, initial encounter Admit Date/Time: 01/02/19 22:37 Admit Provider: Andrea Ontiveros <Yuval Tomas DO - Last Filed: 01/02/19 23:52> Cosign ED Attending Cosignature Attestation: I was available for consultation during this patient's emergency department encounter
[2019-01-02] MEDS: ACETAMINOPHEN 325 MG TABLET 975 MG PO (18:50)
[2019-01-02] MEDS: VANCOMYCIN 1,500 MG/300 ML FROZ.PIGGY 200 MG IV (19:12)
[2019-01-02] MEDS: DEXTROSE 50 % IN WATER 25 GM/50 ML SYRINGE IV ×2 (19:12→22:19)
--- NOTE | 2019-01-02 19:17 | DI.US.S_ITS ---
PROCEDURE: US ABDOMEN LIMITED INDICATIONS: RIGHT UPPER QUADRANT PAIN TECHNIQUE: Real-time focused scanning was performed of the abdomen, with image documentation. COMPARISON: [facility], US, US ABDOMEN COMPLETE, 06/24/2018, 10:47. FINDINGS: Liver size is not measured. Liver has a diffusely increased echotexture which typically represents fatty infiltration; however, finding is nonspecific and other etiologies including hepatic cirrhosis can have a similar appearance. Please correlate with clinical and laboratory findings. Multiple small gallstones noted in gallbladder. Gallbladder is distended. Gallbladder wall is at the upper limits of normal for thickness at 3.0 mm. No sonographic Mayorga sign. No pericholecystic fluid. Common bile duct is dilated at 9.5 mm. Intrahepatic ducts are mildly dilated. Pancreas is not well-visualized due to bowel gas and cannot be evaluated. IMPRESSION: 1. Echogenic liver. Finding typically represents fatty infiltration; however, finding is nonspecific and correlation with clinical and laboratory findings is recommended to exclude other etiologies including hepatic cirrhosis. 2. Gallstones with gallbladder wall at the upper limits of normal in thickness. Please correlate with clinical data to exclude early manifestation of cholecystitis. 3. Common bile duct dilatation and intrahepatic bile duct dilatation. Recommend correlation with laboratory data to exclude biliary obstruction. If there is clinical concern for delayed obstruction, recommend gastroenterology consultation. Dictated by: Elvira Henry MD, PhD on 01/02/2019 at 20:31 Approved by: Elvira Henry MD, PhD on 01/02/2019 at 20:35
[2019-01-02 19:30] LABS: Reflexed Lactate in 2 Hours Y
[2019-01-02 19:43] LABS: Lactate 2HR (Lactic Acid Rflx) 1.8 mmol/L (0.7-2.1)
[2019-01-03] VITALS (41 sets, daily range): BP systolic 87–126; BP diastolic 34–92; PULSE 70–96; RESP 13–85; TEMP 36.1–39.4; O2SAT 84–100; BMI 29.1
--- NOTE | 2019-01-03 | DI.RAD.S_ITS ---
PROCEDURE: XR CHOLANGIOGRAM OPERATIVE INDICATIONS: GALLBLADDER REMOVAL COMPARISON: None. FINDINGS: Biliary ducts: The surgeon injected contrast into the biliary ducts after cannulation of the cystic duct stump. Visualized intra- and extrahepatic bile ducts are mildly distended, without strictures. No intraluminal filling defects to suggest retained ductal stones or sludge. No evidence for iatrogenic ductal injury. Duodenum: Contrast flows promptly through the sphincter of Oddi into the duodenum, which appears normal in caliber. IMPRESSION: No evidence of retained calculi. Mild biliary ductal dilatation. Dictated by: Joss Mcdowell M.D. on 01/03/2019 at 18:23 Approved by: Joss Mcdowell M.D. on 01/03/2019 at 18:24
--- NOTE | 2019-01-03 | PATH_ITS ---
[facility] Accession Number: [id number] . 01 Material submitted: . gallbladder - GALLBLADDER AND CONTENTS . 02 Diagnosis: Gallbladder, Cholecystectomy: Chronic cholecystitis. Negative for dysplasia and malignancy. MRV/01/06/2019 . 02 Electronically signed: . Tri Madrid MD, Pathologist NPI- [id number] . 01 Gross description: . Received in formalin, labeled gallbladder and contents, is an opened gallbladder (length-10.7 cm, diameter-4.0 cm) with green smooth shiny serosa and a patent cystic duct. No lymph nodes are identified. The mucosa is albrecht-green smooth and flat. The wall is up to 0.1 cm thick. No nodules, masses or lesions are identified. The lumen is void of contents and no calculi are present or submitted separately. Section code: (A1) cystic duct resection margin and two serial sections from the body; (A2) two longitudinal sections from the fundus. ([id number]) /MRV . 02 Pathologist provided ICD-10: K81.1 . 02 CPT . 516355 Performed at: 01 [facility] [address] [place] [address], [place], [place] [id number] MD Cullen Mercado MD Phone: [phone] Performed at: 02 [facility] [address] [place], [place] [id number] MD Tri Madrid MD Phone: [phone]
--- NOTE | 2019-01-03 00:09 | P.CONS_ITS ---
History of Present Illness Date Patient Seen: 01/02/19 Time Patient Seen: 23:48 Chief complaint: fever, feels like she is freezing Narrative: 68yo F who came to the ED today after taking her first dose of Bactrim on an empty stomach and developing sudden abdominal pain and nausea with vomiting. She says she had had no abd issues previous to that and has been eating normally. This is her third visit to our ED this week, per notes, other times for cellulitis as well as a fluid collection in an incision from a recent inguinal lymph node biopsy done at [facility] a few weeks ago; she says she does not have cancer per path but she is not otherwise able to verbalize the findings. Surgery was called for concern for an abscess in this operative field. When seen a few days ago, the fluid collection was noted on physical exam but no evidence of infection was reported. She has been on abx for months for a chronic LLE cellulitis which is unchanged per pt. Since that visit, she saw her surgeon and had a single stitch placed for a small opening in the mostly healed incision. No fevers, chills, drainage, or pain the area at home. Currently, the area has blanching erythema and a palpable fluid collection but is not painful nor tense. In terms of her abdomen, it is soft and benign on exam. After pressing while talking with no response, I asked if she felt pain and she said yes, all over, no specific area. CT & US show gallstones and a somewhat thick wall but no specific sequelae of infection or inflammation. She has dilated hepatic ducts but this is similar to prior exams per report. Pt has findings consistent with sepsis given a high temp to 103, WBC of 2.2, and borderline hypotension. She is a brittle type I diabetic and reportedly has had low readings while here, check in room during my exam was 120. Pt is fairly somnolent and keeps closing her eyes; not baseline per her sisters who accompany her, and she has not had recent pain meds per RN. Patient says she is quite tired because she has not slept since yesterday nor eaten today. Pt notes that she lost her daughter this past fall and her mother a few months ago and says her health has suffered since; she thinks her immune system is reacting to the stress. [facility] Medical History Fibromyalgia (Acute) Depression (Chronic) Diabetes (Chronic) Fibromyalgia (Chronic) GERD (gastroesophageal reflux disease) (Chronic) Hyperlipidemia (Chronic) Hypothyroidism (Chronic) Meningioma (Chronic) Restless leg syndrome (Chronic) Sjogren's disease (Chronic) Sleep apnea (Chronic) Spinal stenosis, lumbar (Chronic) Venous stasis dermatitis of both lower extremities (Chronic) Surgical History H/O total hysterectomy (Resolved) Social History household members: spouse and children Smoking Status: Current every day smoker Social History household members: spouse and children Smoking Status: Current every day smoker Meds Home Medications Medication Instructions Recorded Confirmed Type atorvastatin 20 mg PO DAILY #0 03/16/10 06/24/18 History bupropion HCl 150 mg PO BID #0 03/16/10 06/24/18 History cholecalciferol (vitamin D3) 1,000 unit PO DAILY #0 03/16/10 06/24/18 History [Vitamin D3] escitalopram oxalate [Lexapro] 2 tab PO DAILY #0 03/16/10 06/24/18 History levothyroxine 112 mcg PO DAILY #0 03/16/10 06/24/18 History morphine 15 mg PO Q8H #0 03/16/10 06/24/18 History multivitamin 1 tab PO DAILY #0 03/16/10 06/24/18 History olanzapine 2.5 mg PO BEDTIME #0 03/16/10 06/24/18 History omeprazole 20 mg PO Q DAY #0 03/16/10 06/24/18 History cevimeline 1 cap PO TID 06/24/18 06/24/18 History cyclobenzaprine 0.5 - 1 tab PO TID PRN 06/24/18 06/24/18 History furosemide 1 tab PO DAILY PRN 06/24/18 06/24/18 History insulin aspart U-100 [Novolog 4 - 6 unit SUBCUT AC 06/24/18 06/24/18 History Flexpen U-100 Insulin] lisinopril 2.5 mg PO DAILY 06/24/18 06/24/18 History gabapentin 1,200 mg PO BEDTIME #0 tab 06/27/18 06/24/18 Rx hydrocodone-acetaminophen 1 tab PO TID #0 tab 06/27/18 06/24/18 Rx insulin glargine [Lantus Solostar 50 unit SUBCUT BEDTIME #0 ml 06/27/18 06/24/18 Rx U-100 Insulin] ondansetron 4 mg PO TID PRN #10 tab 06/27/18 Rx sulfamethoxazole-trimethoprim 1 tab PO BID #14 tab 06/27/18 Rx [Bactrim DS] clindamycin HCl 300 mg PO QID #40 cap 06/28/18 Rx cephalexin [Keflex] 500 mg PO TID #21 cap 08/13/18 Rx doxycycline hyclate 100 mg PO BID #20 tab 08/28/18 Rx doxycycline hyclate 100 mg PO BID 10 Days #20 tab 12/26/18 Rx sulfamethoxazole-trimethoprim 1 tab PO BID 7 Days #14 tab 01/01/19 Rx [Bactrim DS] Allergies Allergy/AdvReac Type Severity Reaction Status Date / Time No Known Drug Allergies Allergy Verified 01/01/19 07:53 Review of Systems Constitutional Constitutional: Reports as per HPI Exam Vital Signs (past 8 hours): - 01/02/19 16:55 01/02/19 17:22 01/02/19 17:58 Temperature 99.9 F H Pulse Rate 113 H 113 H 101 H Respiratory Rate 23 18 29 H Blood Pressure 157/60 H Blood Pressure [Right Arm] 130/74 119/77 Pulse Oximetry 96 94 90 L 01/02/19 18:50 01/02/19 19:32 01/02/19 20:38 Temperature 103.3 F H Pulse Rate 101 H 93 H Respiratory Rate 20 17 Blood Pressure Blood Pressure [Right Arm] 97/75 101/39 L Pulse Oximetry 93 90 L 01/02/19 21:19 01/02/19 22:55 Temperature Pulse Rate 87 84 Respiratory Rate 17 17 Blood Pressure Blood Pressure [Right Arm] 100/41 L 92/45 L Pulse Oximetry 96 97 Oxygen Delivery Method Room Air Narrative Exam Narrative: AO but variable historian, somnolent, NAD, overweight female of EOMI, MMM, no scleral icterus unlabored 2 LNC soft, nt/nd, when asked pt states she feels pain MAEW R ing inc well-healed save single stitch with clear drop of fluid, blanching erythema surrounding, palpable soft fluid collection; LLE with chronic cellulitis and vascular changes to anterior thomas, soft compartments, moving foot well, no specific increased pain, neuro intact Objective Labs Result Diagrams: 01/02/19 17:25 01/02/19 17:25 Labs: Laboratory Results - last 24 hr 01/02/19 01/02/19 01/02/19 17:25 17:25 17:25 WBC 2.2 L RBC 4.55 Hgb 13.1 Hct 39.6 MCV 87.1 MCH 28.8 MCHC 33.1 RDW 12.9 Plt Count 172 Neut % (Auto) 87.1 H Lymph % (Auto) 12.2 L Sargent % (Auto) 0.5 L Eos % (Auto) 0.1 L Baso % (Auto) 0.1 Neut # (Auto) 1900 Lymph # (Auto) 300 L Sargent # (Auto) 0 Eos # (Auto) 0 Baso # (Auto) 0 Sodium 138 Potassium 3.9 Chloride 99 Carbon Dioxide 31 BUN 14 Creatinine 0.50 L Estimated GFR > 60.0 BUN/Creatinine Ratio 28.0 H Glucose 111 H Lactate 2.9 H Calcium 9.5 Total Bilirubin 0.7 AST 77 H ALT 34 Alkaline Phosphatase 133 H Total Protein 7.0 Albumin 3.7 Globulin 3.3 Albumin/Globulin Ratio 1.1 Procalcitonin 01/02/19 01/02/19 17:25 19:25 WBC RBC Hgb Hct MCV MCH MCHC RDW Plt Count Neut % (Auto) Lymph % (Auto) Sargent % (Auto) Eos % (Auto) Baso % (Auto) Neut # (Auto) Lymph # (Auto) Sargent # (Auto) Eos # (Auto) Baso # (Auto) Sodium Potassium Chloride Carbon Dioxide BUN Creatinine Estimated GFR BUN/Creatinine Ratio Glucose Lactate 1.8 Calcium Total Bilirubin AST ALT Alkaline Phosphatase Total Protein Albumin Globulin Albumin/Globulin Ratio Procalcitonin 0.38 Assessment & Plan (1) Abdominal pain: Problem details: - started just after taking first dose of Bactrim on an empty stomach --> n/v, pain complaints- severe for this med but can cause abd pain - GB stones and thick wall with otherwise equivocal imaging findings for acute process & does not echogenic texture to liver likely fatty in nature, AST & AP minimally elevated but exam thoroughly unremarkable --> while exam may be diminished somewhat by her long-standing DM I and somnolence, I can illicit no response with deep palpation --> follow exam, recheck CMP in AM Current visit: Yes Status: Acute (2) Post-operative infection: Problem details: - cellulitis apparent in field but only seroma fluid drained when stitch removed and small opening gently probed --> abx Qualifiers: Encounter type: initial encounter Postoperative infection type: sepsis Qualified Code(s): T81.44XA - Sepsis following a procedure, initial encounter Current visit: Yes Status: Acute (3) Sepsis: Problem details: - despite two above, no clear etiology as her new cellulitis appears mild and her chronic seems unchanged, also her abd exam and findings are not suggestive of a severe intra-abdominal inflammatory or infectious process - UA POC neg, CXR with mild changes possibly viral origin but no related symptoms - being admitted for IV abx, IVF resuscitation, and close monitoring --> will follow for exams and any surgical needs Qualifiers: Sepsis type: Current visit: Yes Status: Acute Assessment & Plan narrative: ABD PAIN - started just after taking first dose of Bactrim on an empty stomach --> n/v, pain complaints- severe for this med but can cause abd pain - GB stones and thick wall with otherwise equivocal imaging findings for acute p rocess & does not echogenic texture to liver likely fatty in nature, AST & AP minimally elevated but exam thoroughly unremarkable --> while exam may be diminished somewhat by her long-standing DM I and somnolence, I can illicit no response with deep palpation --> follow exam, recheck CMP in AM POST-OP INFECTION/ CELLULITIS - started just after taking first dose of Bactrim on an empty stomach --> n/v, pain complaints- severe for this med but can cause abd pain - GB stones and thick wall with otherwise equivocal imaging findings for acute process & does not echogenic texture to liver likely fatty in nature, AST & AP minimally elevated but exam thoroughly unremarkable --> while exam may be diminished somewhat by her long-standing DM I and somnolence, I can illicit no response with deep palpation which makes organ inflammation sufficient to cause her septic picture unlikely --> follow exam, recheck CMP in AM SEPSIS - despite two above, no clear etiology as her new cellulitis appears mild and her chronic seems unchanged, also her abd exam and findings are not suggestive of a severe intra-abdominal inflammatory or infectious process - UA POC neg, CXR with mild changes possibly viral origin but no related symptoms - being admitted for IV abx, IVF resuscitation, and close monitoring --> will follow for exams and any surgical needs
--- NOTE | 2019-01-03 00:49 | P.HP_ITS ---
History of Present Illness Date Patient Seen: 01/03/19 Time Patient Seen: 00:10 Chief complaint: fever, feels like she is freezing Narrative: Alissa Kirby is a 68-year-old female patient with a history type 1 diabetes, meningioma, hypothyroidism, hyperlipidemia, hypothyroidism, Sjogren syndrome, fibromyalgia, venous stasis dermatitis presents to the emergency department for complaints abdominal pain and nausea vomiting following taking Bactrim prescribed for cellulitis. Patient underwent lymph node biopsy on 12/16/[address] Roberts and [facility]. She has since had multiple visits to the ER on 12/26/2018 for an open draining wound of clear fluid that was found to be swollen without erythema and chronic left lower extremity cellulitis for which the patient was started on doxycycline. Patient was apparently seen by her surgeon evaluated with placement of an additional suture. Patient subsequently was seen in the ER on 01/01/2019 when the wound began draining once more however now was swollen with erythema. The patient was discharged from the ER on Bactrim prompting the patient's return to the ER this evening due to adverse reaction to the medication. While in the ER the patient was found to be septic with a temperature spiking to 103, lactate of 2.9, white count low at 2.2 tachycardic at 113. She was found to have low blood sugars treated with glucose IV. The patient states that she has taken her Lantus per usual but has not eaten today. The patient states her sugars have been very erratic and hurts sisters were present during the encounter acknowledge the patient has had erratic eating habits and is not adherent to a diabetic diet including frequent conception a candy bars. The patient denies other complaints of recent illness and denies fevers or chills, nasal congestion or sore throat and does have a history Sjogren's. She denies shortness of breath or cough endorses a history of sleep apnea sleeping in a recliner. She is Had no chest pain or palpitations. She has had no abdominal pain prior to today which occurred right after taking Bactrim resulting in vomiting. She reports no constipation or diarrhea. She has no complaints of urgency frequency or hematuria. She does have a history of fibromyalgia which she describes as ?all over? as well as restless leg syndrome and bilateral lower extremity venous stasis with pedal edema. In the emergency department a CT was obtained finding of fluid pocket 7.9 x 5.7 x 5.4 in the right groin. It was also noted the patient had dilated gallbladder with gallstones, mildly dilated hepatic ducts, dilated common bile duct. Abdominal ultrasound findings hepatic echogenicity with CBD dilation and intrahepatic dilatation. There is no notation of obstruction. On CBC the patient has white count 2.2 with a hemoglobin of 13.1 and hematocrit of 39.6 with platelets of 172. She has elevated neutrophils at 87.1% with no bandemia. Her coags within normal limits. Her coag on arrival was 2.9 which improved to 1.8 with fluid resuscitation. Patient chemistries show electrolytes within normal range a BUN of 14 and creatinine is 0.5 with glucose of 111. She notably has a normal total bilirubin at 0.7 with an elevated AST of 77 and ALT of 34 and alkaline phosphatase elevated 133. The ER provider attempted to transfer the patient to [facility] for further care where surgery was done however no beds are available therefore the patient will be admitted at [facility]. Dr. Pham, general surgery was consulted. Dr. Pham recent came and saw the patient and evaluated the wound finding a seroma with no need for immediate surgical intervention. Patient History Medical History Fibromyalgia (Acute) Depression (Chronic) Diabetes (Chronic) Fibromyalgia (Chronic) GERD (gastroesophageal reflux disease) (Chronic) Hyperlipidemia (Chronic) Hypothyroidism (Chronic) Meningioma (Chronic) Restless leg syndrome (Chronic) Sjogren's disease (Chronic) Sleep apnea (Chronic) Spinal stenosis, lumbar (Chronic) Venous stasis dermatitis of both lower extremities (Chronic) Surgical History (Updated 01/03/19 @ 01:15 by KENYA Doty) History of lymph node biopsy (Acute) H/O total hysterectomy (Resolved) Social History household members: spouse and children Smoking Status: Current every day smoker alcohol intake: current Family & Social History Social History: household members spouse,children Tobacco & Substance use: Tobacco type cigarettes Smoking Status Current every day smoker alcohol intake frequency a few times a month Substance Use Type does not use Comment: The patient presently lives in a single family home with her . The patient has experienced loss of her daughter last fall and her mother in October of this year who of complications of ?twisted bowel?. Father is and had evolved psychiatric history. She has 4 sisters 1 of which was from renal cancer. She has 1 brother has hypertension. Smoking: The patient currently smokes 6-7 cigarettes per day for the last 4-5 years. Alcohol: The patient endorses occasional glass of red wine. Substance use: Patient denies recreation pharmaceuticals herbal or cannabis products. Advanced directive: In direct discussion with the patient she requests to be FULL CODE. She designates her to be her surrogate decision maker. Meds Home Medications Medication Instructions Recorded Confirmed Type escitalopram oxalate [Lexapro] 2 tab PO DAILY #0 03/16/10 01/03/19 History levothyroxine 112 mcg PO DAILY #0 03/16/10 01/03/19 History morphine 15 mg PO Q8H #0 03/16/10 01/03/19 History omeprazole 20 mg PO Q DAY #0 03/16/10 01/03/19 History Novolog Flexpen U-100 Insulin 4 - 6 unit SUBCUT AC 06/24/18 01/03/19 History cevimeline 1 cap PO TID 06/24/18 01/03/19 History furosemide 1 tab PO DAILY PRN 06/24/18 01/03/19 History lisinopril 2.5 mg PO DAILY 06/24/18 01/03/19 History hydrocodone-acetaminophen 1 tab PO TID #0 tab 06/27/18 01/03/19 Rx Lantus Solostar U-100 Insulin 30 unit SUBCUT BEDTIME 01/03/19 01/03/19 History atorvastatin 20 mg PO DAILY 01/03/19 01/03/19 History dextroamphetamine-amphetamine 30 mg PO TID 01/03/19 01/03/19 History Allergies Allergy/AdvReac Type Severity Reaction Status Date / Time No Known Drug Allergies Allergy Verified 01/01/19 07:53 Review of Systems Review of Systems All systems reviewed & are unremarkable except as noted in HPI and below Exam Vital Signs (past 8 hours): - 01/02/19 16:55 01/02/19 17:22 01/02/19 17:58 Temperature 99.9 F H Pulse Rate 113 H 113 H 101 H Respiratory Rate 23 18 29 H Blood Pressure 157/60 H Blood Pressure [Right Arm] 130/74 119/77 Pulse Oximetry 96 94 90 L 01/02/19 18:50 01/02/19 19:32 01/02/19 20:38 Temperature 103.3 F H Pulse Rate 101 H 93 H Respiratory Rate 20 17 Blood Pressure Blood Pressure [Right Arm] 97/75 101/39 L Pulse Oximetry 93 90 L 01/02/19 21:19 01/02/19 22:55 01/02/19 23:30 Temperature Pulse Rate 87 84 80 Respiratory Rate 17 17 22 Blood Pressure Blood Pressure [Right Arm] 100/41 L 92/45 L 102/45 L Pulse Oximetry 96 97 100 Oxygen Delivery Method Nasal Cannula Oxygen Flow Rate 2 Narrative Exam Narrative: GENERAL APPEARANCE: Somnolent, well developed, well nourished, in no acute distress. HEAD: Normocephalic, atraumatic, no scalp lesions. EYES: pupils equal, round, reactive to light and accommodation, sclera non- icteric, EOMs intact without nystagmus. EARS: normal external structures, no ear pain NOSE: sinuses non tender to percussion, no rhinorrhea. ORAL CAVITY: mucosa dry without lesions or exudate, palate normal, tongue in m idline. THROAT: normal, no erythema, no exudate, pharynx normal, uvula midline. NECK/THYROID: neck supple, no jugular venous distention, no carotid bruit, no thyromegaly, trachea midline. LYMPH NODES: no cervical or supraclavicular lymphadenopathy. SKIN: Dry, hot to touch, mildly flushed, scar tissue left anterior lower leg stronger but deep red nontender discoloration. HEART: regular rate and rhythm, S1-S2 without murmur, no rubs or gallops, brisk capillary refill, 1+ bilateral pedal edema. LUNGS: clear to auscultation bilaterally, no coarseness crackles or wheezing, no cough present. CHEST: Symmetrical movement, no accessory muscle use, no pain to AP and lateral compression. ABDOMEN: Soft, no distention, no epigastric or abdominal tenderness on palpation, no guarding or peritoneal signs, negative Mayorga sign, no organomegaly, no flank tenderness, active bowel tones. BACK: Normal curvature, nontender to palpation. EXTREMITIES: moves all extremities, strength is 5/5 and symmetrical, no joint pain on passive ROM. NEUROLOGIC: GCS variable from 14-15, responds to verbal stimulus to AAO x4, cranial nerves II-XII grossly intact , motor strength normal upper and lower extremities, sensory exam intact to light touch, hearing grossly normal to speech. PSYCH: alert, cooperative, cognitive function intact. Objective Labs Result Diagrams: 01/02/19 17:25 01/02/19 17:25 Labs: Laboratory Results - last 24 hr 01/02/19 01/02/19 01/02/19 17:25 17:25 17:25 WBC 2.2 L RBC 4.55 Hgb 13.1 Hct 39.6 MCV 87.1 MCH 28.8 MCHC 33.1 RDW 12.9 Plt Count 172 Neut % (Auto) 87.1 H Lymph % (Auto) 12.2 L [place]oll[place] % (Auto) 0.5 L Eos % (Auto) 0.1 L Baso % (Auto) 0.1 Neut # (Auto) 1900 Lymph # (Auto) 300 L [place] # (Auto) 0 Eos # (Auto) 0 Baso # (Auto) 0 Sodium 138 Potassium 3.9 Chloride 99 Carbon Dioxide 31 BUN 14 Creatinine 0.50 L Estimated GFR > 60.0 BUN/Creatinine Ratio 28.0 H Glucose 111 H Lactate 2.9 H Calcium 9.5 Total Bilirubin 0.7 AST 77 H ALT 34 Alkaline Phosphatase 133 H Total Protein 7.0 Albumin 3.7 Globulin 3.3 Albumin/Globulin Ratio 1.1 Procalcitonin 01/02/19 01/02/19 17:25 19:25 WBC RBC Hgb Hct MCV MCH MCHC RDW Plt Count Neut % (Auto) Lymph % (Auto) [place]oll[place] % (Auto) Eos % (Auto) Baso % (Auto) Neut # (Auto) Lymph # (Auto) [place] # (Auto) Eos # (Auto) Baso # (Auto) Sodium Potassium Chloride Carbon Dioxide BUN Creatinine Estimated GFR BUN/Creatinine Ratio Glucose Lactate 1.8 Calcium Total Bilirubin AST ALT Alkaline Phosphatase Total Protein Albumin Globulin Albumin/Globulin Ratio Procalcitonin 0.38 Assessment & Plan Assessment & Plan narrative: The patient presents the ER with concerns of wound infection found to be septic with a seroma with umer-incisional erythema and tenderness consistent with cellulitis. 1. Acute sepsis -patient with elevated temperature to 103, leukopenia at 2.2, lactic acid elevated at 2.9 and mean arterial pressure less than 60. -patient's temperature improved with Tylenol as well as lactic acid fluid resuscitation with improvement mean arterial pressure. -continue normal saline at 150 cc/hour -blood cultures have been drawn. Will obtain urinalysis. -will recheck chemistries, white count and procalcitonin. 2. Acute right groin cellulitis, present on admission -patient is immunosuppressed with long-term antibiotic use and type 1 diabetes. -redness and warmth around the right going incision site. -wound evaluation and irrigation by Dr. Pham found seroma with no purulent drainage, recommended medical management. -patient with marked fever and sepsis markers, continue vancomycin 1000 mg every 12 hours and Zosyn 3.75 g every 8 hours. 3. Chronic left lower leg cellulitis -patient with warmth and mild redness bilateral lower extremities left greater than right. -1+ bilateral lower extremity edema also left greater than right. -large area of healing scar tissue left lower extremity with surrounding non blanchable red discoloration not tender to palpation. -patient prescribed Bactrim which produced abdominal pain and vomiting immediately upon taking the 1st dose. -will treat as with antibiotics above. 4. Acute Elevated transaminases, present on admission. -patient with single episode of nausea vomiting no continuing abdominal pain, negative Mayorga sign. -elevated AST at 77, normal ALT at 34 and elevated alkaline phosphatase at 133 and normal total bili at 0.7. -CT finding of distended gallbladder with no umer cholestatic fluid, cholelithiasis, mildly dilated hepatic ducts, dilated common bile duct at 9.5 mm. -ultrasound finding of liver heterogenicity reconfirming common bile duct dilation and hepatic dilation. -the patient will be on Zosyn for cellulitis. -will monitor for progression of signs or symptoms. 5. Chronic Type 1 diabetes. -patient with hypoglycemia in the ER, patient reports not eating today. -patient currently treated with Lantus 30 mg once daily with correctional insulin at mealtime. -patient self reports highly variable blood sugars, sister's report nonc ompliance with diet frequently eating candy bars. -patient with no evidence of nephropathy, retinopathy or neuropathy however she does have fibromyalgia. -will hold Lantus at this time due to hypoglycemia -will provide food and check blood sugars every 2 hours x3 AC and HS glycemic checks -will cover with medium range sliding scale insulin and add Lantus back and when blood sugars stabilize. -will obtain hemoglobin A1c, dietitian consult. 6. Chronic pain, generalized, present on admission -patient with history of fibromyalgia describing pain as all over as well as history of spinal stenosis -patient is on chronic opioids -continue morphine 15 mg IR every 8 hours and [place] 5/325 every 8 hours as needed. 7. Chronic Depression, active -the patient has experienced recent loss of her daughter and mother. -patient presents as appropriate and responsive with no overt symptoms of depression -continue bupropion 150 mg extended release daily and Lexapro 40 mg daily. -unable to further reconcile medications. Patient's will bring current medication list tomorrow. 8. Chronic attention deficit disorder, active -patient's reports taking Adderall 30 mg 3 times daily. -patient also reports disturbed sleep patterns sleeping from 5 a.m. to noon daily. -will continue dextroamphetamine-amphetamine 30 mg 2 times daily at 0 800 and 1600. 9. Chronic Hyperlipidemia, active -continue atorvastatin 20 mg daily -will obtain lipid panel 10. Chronic Acquired Hypothyroidism, active -continue patient's levothyroxine 112 mg daily 11. Gastroesophageal reflux disorder, chronic, active -continue omeprazole 20 mg daily The patient is admitted to the hospital as an inpatient due to the severity symptoms in the risk for complications. The patient will be admitted as an inpatient with expected length of stay to be greater than 2 midnights. Scores GCS Munir coma scale eye opening: Spontaneous Munir coma scale verbal response: Orientated Munir coma scale motor response: Obey commands [employer] coma scale total score: 15 SOFA PaO2/FIO2: < 400 mmHg Platelets: >= 150 Bilirubin: < 1.2 mg/dL Hypotension: MAP < 70 mmHg [employer] Coma Scale: 13-14 Renal: < 1.2 mg/dL SOFA Score: 3
[2019-01-03] MEDS: SODIUM CHLORIDE 0.9% 1,000 ML 100 ML IV (01:41)
[2019-01-03] MEDS: PIPERACILLIN-TAZO 3.375 GM/50 ML FROZ.PIGGY IV ×4 (01:45→16:09)
[2019-01-03 02:07] LABS: Bacteria Urine None Seen; RBC Urine None Seen (0-5/HPF); WBC Urine None Seen (0-5/HPF)
[2019-01-03 02:08] LABS: Appearance Urine UA CLEAR; Bilirubin Urine UA NEGATIVE (NEGATIVE); Color Urine UA YELLOW; Glucose Urine UA NEGATIVE (Negative); Ketones Urine UA NEGATIVE (NEGATIVE); Leukocyte Esterase Urine UA NEGATIVE (NEGATIVE); Nitrite Urine UA NEGATIVE (Negative); Occult Blood Urine UA NEGATIVE (Negative); Protein Urine UA NEGATIVE (Negative); Specific Gravity Urine UA <=1.005 (1.000-1.035); Urobilinogen Urine UA 0.2 E.U./dL (0.2)
[2019-01-03 02:15] LABS: Culture Indicated Urine Cult Not Indicated; Squamous Epithelial Cell Urine 1-5 /HPF (0-5/HPF); Urine Comments Microscopic Normal
[2019-01-03] MEDS: MORPHINE ER 15 MG TABLET PO (02:26)
[2019-01-03] MEDS: ACETAMINOPHEN 325 MG TABLET 650 MG PO (02:28)
--- NOTE | 2019-01-03 02:34 | PC.NURSE ---
Pt arrived on unit at approx 0025. She had a fever of 100.2 at the time, her fever is now 103.0 LIP advised, 650 mg APAP po given. IVF NS at 100 mL running, ABOs given and MS 15mg given. Her undergarment was soaked with yellow sanguineous fluid as was a small dressing that was on the site. Pullup provided, sterile gauze placed on the incision. Pt voided 200 mL dark urine in bedpan, sample sent to lab. BP is 105/52. Pt able to sleep.
--- NOTE | 2019-01-03 03:44 | PC.NURSE ---
Pt's brought in Pt's home med Evoxac and strongly suggested pt have a dose. Contacted [facility] and [facility]les[place] and myself ID'd med and she auth dosing. Pt appreciative. Med in Pt locked med drawer.
[2019-01-03] MEDS: VANCOMYCIN 1,000 MG/200 ML FROZ.PIGGY 200 MG IV (04:40)
[2019-01-03] MEDS: PANTOPRAZOLE 20 MG TABLET PO (05:29)
--- NOTE | 2019-01-03 05:38 | PC.NURSE ---
Pt states she takes gabapentin and [place] 7.5/325 mg. to bring in med list this morning. One sister is a pharmacist.
[2019-01-03 05:46] LABS: Hemoglobin A1C% w Est Avg Glu 8.7 % (4.0-6.0)
[2019-01-03 05:49] LABS: BUN Creatinine Ratio 26.7 (6-22); Blood Urea Nitrogen 16 mg/dL (7-17); Calcium 8.1 mg/dL (8.4-10.2); Carbon Dioxide 27 mmol/L (22-32); Chloride 100 mmol/L (98-107); Cholesterol 109 mg/dL (140-199); Estimated Glomerular Filt Rate > 60.0 mL/min (>60); Glucose 134 mg/dL (80-110); HDL Cholesterol 39 mg/dL (40-60); HEMOLYSIS < 15 (0-50); LDL Cholesterol Calculated 57 mg/dL (<100); Potassium 3.6 mmol/L (3.4-5.1); Sodium 132 mmol/L (137-145); Triglycerides 65 mg/dL (35-150)
[2019-01-03 05:59] LABS: Procalcitonin 21.43 ng/mL (<0.5)
[2019-01-03 06:47] LABS: Add Manual Diff / Slide Review NO; Basophils Absolute Auto 0 /uL (0-100); Basophils Percent Auto 0.1 % (0-2); Eosinophils Absolute Auto 100 /uL (0-450); Eosinophils Percent Auto 1.9 % (2-4); Hematocrit 32.6 % (36-46); Hemoglobin 11.4 g/dL (12.0-16.0); Lymphocytes Absolute Auto 400 /uL (1100-4500); Lymphocytes Percent Auto 6.3 % (25-40); Mean Corpuscular Volume 85.7 fL (80-100); Monocytes Absolute Auto 400 /uL (0-900); Monocytes Percent Auto 6.7 % (3-14); Neutrophils Absolute Auto 5100 /uL (1500-7000); Platelet Count 143 X10^3/uL (150-400)
[2019-01-03] MEDS: LEVOTHYROXINE 112 MCG TABLET PO (08:54)
[2019-01-03] MEDS: ESCITALOPRAM 10 MG TABLET 40 MG PO (08:54)
[2019-01-03] MEDS: HEPARIN 5,000 UNIT/ML VIAL 5000 UNIT SUBCUT ×2 (08:55→20:47)
[2019-01-03] MEDS: ONDANSETRON 4 MG/2 ML INJ IV (08:55)
[2019-01-03] MEDS: MORPHINE 15 MG IR TABLET PO (09:39)
--- NOTE | 2019-01-03 09:48 | PC.NURSE ---
Addendum entered by Zuleyka Mederos R.N. 01/03/19 11:21: Pt c/o chest heaviness and shortness of breath, Dr Hooper aware, LS clear, sats on 97%. EKG ordered and patient going to be trasferred to the ICU. Addendum entered by Zuleyka Mederos R.N. 01/03/19 10:16: Py unable to void twice per bedpan. Dr Hooper aware, wood placed as ordered. Original Note: Pt hypotensive, 90/43 and 87/43, Dr Hooper informed and order for NS bolus taken.
[2019-01-03] MEDS: SODIUM CHLORIDE 0.9% 1,000 ML 1000 ML IV (09:53)
--- NOTE | 2019-01-03 12:19 | P.PN_ITS ---
Subjective Date Patient Seen: 01/03/19 Interval history: Alissa Kirby is a 68-year-old female patient with a a past medical history significant for diabetes mellitus type 1, hyperlipidemia, hypothyroidism, mening ioma, Sjogren syndrome, fibromyalgia, venous stasis dermatitis who presented for abrupt onset abdominal pain with nausea and vomiting thought to be related to Bactrim use. The patient is resting in bed and is rather somnolent. She arouses to stimulation. She endorses right upper quadrant burning pain. When her abdomen is palpated, however, it is not localized. She also complains of chest pre ssure. She continues to be hypotensive which is fluid responsive currently. Plan to transfer patient down to ICU for closer monitoring and possible vasopressor support. Bah catheter was placed for possible urinary retention. Discussed case with general surgery, Dr. Mckeon, who plans to take patient to OR for cholecystectomy. Exam Vital Signs (past 8 hours): - 01/03/19 04:31 01/03/19 05:50 01/03/19 07:35 Temperature 102.1 F H 100 F H 99.0 F Pulse Rate 96 H 81 Respiratory Rate 16 85 H 14 Blood Pressure 104/48 L 104/57 L 90/43 L Pulse Oximetry 94 94 94 01/03/19 09:00 01/03/19 09:14 01/03/19 10:42 Temperature Pulse Rate 79 Respiratory Rate Blood Pressure 87/43 L 92/63 Pulse Oximetry 96 01/03/19 10:52 01/03/19 11:50 Temperature 98.9 F Pulse Rate Respiratory Rate Blood Pressure 90/50 L Pulse Oximetry Oxygen Delivery Method Nasal Cannula Oxygen Flow Rate 1 Narrative Exam Narrative: General: Older female lying in bed and appears acutely ill, somnolent but easily arousable. HEENT: Normocephalic, atraumatic. External ears without defect. Pupils equal, round, and reactive to light. Anicteric sclerae, moist conjunctivae, and no lid lag. Neck: Supple with full range of motion. No jugular venous distension. No bruits. No lymphadenopathy or thyromegaly. Cardiovascular: Regular rate and rhythm without murmurs, rubs, or gallops appreciated. Pulmonary: Clear to auscultation bilaterally without crackles, wheezes, or rhonchi. Normal respiratory effort with no use of accessory muscles. Abdomen: Soft, diffusely tender, hypoactive bowel sounds, nondistended. No involuntary guarding or rebound. Extremities: No clubbing, cyanosis, or edema. Skin: Normal temperature, turgor, and texture; no rash, ulcers, or subcutaneous nodules appreciated. Neurological: Cranial nerves grossly intact. Psychiatric: Somnolent but easily arousable. Appears alert and oriented to person, place, and time. Objective Labs Result Diagrams: 01/03/19 05:11 01/03/19 05:11 Labs: Laboratory Results - last 24 hr 01/02/19 01/02/19 01/02/19 17:25 17:25 17:25 WBC 2.2 L RBC 4.55 Hgb 13.1 Hct 39.6 MCV 87.1 MCH 28.8 MCHC 33.1 RDW 12.9 Plt Count 172 Neut % (Auto) 87.1 H Lymph % (Auto) 12.2 L [place] % (Auto) 0.5 L Eos % (Auto) 0.1 L Baso % (Auto) 0.1 Neut # (Auto) 1900 Lymph # (Auto) 300 L [place] # (Auto) 0 Eos # (Auto) 0 Baso # (Auto) 0 Sodium 138 Potassium 3.9 Chloride 99 Carbon Dioxide 31 BUN 14 Creatinine 0.50 L Estimated GFR > 60.0 BUN/Creatinine Ratio 28.0 H Glucose 111 H Hemoglobin A1c Lactate 2.9 H Calcium 9.5 Total Bilirubin 0.7 AST 77 H ALT 34 Alkaline Phosphatase 133 H Total Protein 7.0 Albumin 3.7 Globulin 3.3 Albumin/Globulin Ratio 1.1 Triglycerides Cholesterol LDL Cholesterol, Calc HDL Cholesterol Procalcitonin Urine Color Urine Appearance Urine pH Ur Specific [place] Urine Protein Urine Glucose (UA) Urine Ketones Urine Occult Blood Urine Nitrate Urine Bilirubin Urine Urobilinogen Ur Leukocyte Esterase Urine RBC Urine WBC Ur Squamous Epith Cells Urine Bacteria Ur Culture Indicated? Micro UA Comment 01/02/19 01/02/19 01/03/19 17:25 19:25 01:55 WBC RBC Hgb Hct MCV MCH MCHC RDW Plt Count Neut % (Auto) Lymph % (Auto) [place] % (Auto) Eos % (Auto) Baso % (Auto) Neut # (Auto) Lymph # (Auto) [place] # (Auto) Eos # (Auto) Baso # (Auto) Sodium Potassium Chloride Carbon Dioxide BUN Creatinine Estimated GFR BUN/Creatinine Ratio Glucose Hemoglobin A1c Lactate 1.8 Calcium Total Bilirubin AST ALT Alkaline Phosphatase Total Protein Albumin Globulin Albumin/Globulin Ratio Triglycerides Cholesterol LDL Cholesterol, Calc HDL Cholesterol Procalcitonin 0.38 Urine Color Yellow Urine Appearance Clear Urine pH 5.0 Ur Specific [place] <=1.005 Urine Protein Negative Urine Glucose (UA) Negative Urine Ketones Negative Urine Occult Blood Negative Urine Nitrate Negative Urine Bilirubin Negative Urine Urobilinogen 0.2 Ur Leukocyte Esterase Negative Urine RBC None seen Urine WBC None seen Ur Squamous Epith Cells 1-5 /hpf Urine Bacteria None seen Ur Culture Indicated? Cult not indicated Micro UA Comment Microscopic normal 01/03/19 01/03/19 01/03/19 05:11 05:11 05:11 WBC RBC Hgb Hct MCV MCH MCHC RDW Plt Count Neut % (Auto) Lymph % (Auto) [place] % (Auto) Eos % (Auto) Baso % (Auto) Neut # (Auto) Lymph # (Auto) [place] # (Auto) Eos # (Auto) Baso # (Auto) Sodium 132 L Potassium 3.6 Chloride 100 Carbon Dioxide 27 BUN 16 Creatinine 0.60 Estimated GFR > 60.0 BUN/Creatinine Ratio 26.7 H Glucose 134 H Hemoglobin A1c 8.7 H Lactate Calcium 8.1 L Total Bilirubin AST ALT Alkaline Phosphatase Total Protein Albumin Globulin Albumin/Globulin Ratio Triglycerides 65 Cholesterol 109 L LDL Cholesterol, Calc 57 HDL Cholesterol 39 L Procalcitonin 21.43 H Urine Color Urine Appearance Urine pH Ur Specific [place] Urine Protein Urine Glucose (UA) Urine Ketones Urine Occult Blood Urine Nitrate Urine Bilirubin Urine Urobilinogen Ur Leukocyte Esterase Urine RBC Urine WBC Ur Squamous Epith Cells Urine Bacteria Ur Culture Indicated? Micro UA Comment 01/03/19 05:11 WBC 6.0 D RBC 3.80 L Hgb 11.4 L Hct 32.6 L MCV 85.7 MCH 30.0 MCHC 35.0 RDW 13.0 Plt Count 143 L Neut % (Auto) 85.0 H Lymph % (Auto) 6.3 L [place] % (Auto) 6.7 Eos % (Auto) 1.9 L Baso % (Auto) 0.1 Neut # (Auto) 5100 Lymph # (Auto) 400 L [place] # (Auto) 400 Eos # (Auto) 100 Baso # (Auto) 0 Sodium Potassium Chloride Carbon Dioxide BUN Creatinine Estimated GFR BUN/Creatinine Ratio Glucose Hemoglobin A1c Lactate Calcium Total Bilirubin AST ALT Alkaline Phosphatase Total Protein Albumin Globulin Albumin/Globulin Ratio Triglycerides Cholesterol LDL Cholesterol, Calc HDL Cholesterol Procalcitonin Urine Color Urine Appearance Urine pH Ur Specific [place] Urine Protein Urine Glucose (UA) Urine Ketones Urine Occult Blood Urine Nitrate Urine Bilirubin Urine Urobilinogen Ur Leukocyte Esterase Urine RBC Urine WBC Ur Squamous Epith Cells Urine Bacteria Ur Culture Indicated? Micro UA Comment Assessment & Plan Assessment & Plan narrative: Alissa Kirby is a 68-year-old female patient with a a past medical history significant for diabetes mellitus type 1, hyperlipidemia, hypothyroidism, meningioma, Sjogren syndrome, fibromyalgia, venous stasis dermatitis who presented for abrupt onset abdominal pain with nausea and vomiting thought to be related to Bactrim use. 1. Acute severe sepsis, present on admission. Active. -Sepsis criteria met including: Febrile (Temp 103F), leukopenia (WBC 2.2), hypotensive (BP 87/43) with lactic acidosis of 2.9 with source thought to be cholecystitis. -Early goal-directed therapy med including: Broad-spectrum antibiotics with vancomycin and Zosyn, as well as, IV fluid resuscitation. Continue to bolus as needed for blood pressure support. If patient becomes unresponsive to IV fluids will start Levophed gtt. Placed order for PICC line. 2. Acute cholecystitis, present on admission. Active. -Patient is immunosuppressed with long-term antibiotic use and type 1 diabetes. -Continue vancomycin with dosing per pharmacy and Zosyn 3.375 g every 8 hours. -Continue NS IV boluses to support blood pressure as needed. If patient becomes fluid unresponsive will plan to start Levophed. -Ordered blood cultures x2 pending. -UA clean and without infection. Placed Bah catheter for comfort. -WBC trending up from 2.2 now to 6.0. Procalcitonin trending up from 0.38 to to any 21.43. Continue to trend daily. -CT abdomen and pelvis with contrast demonstrated 7.9 x 5.7 x 5.4 cm fluid collection in the right groin which could represent postsurgical seroma and prominence of the gallbladder and gallbladder wall is massively changed compared to previous exam. -General surgery, Dr. Mckeon, has been consulted and plans to perform cholecystectomy today in the OR. 3. Acute right groin seroma with possible cellulitis, secondary to lymph node removal, status post I&D, present on admission. Active. -Patient has redness and warmth around the right groin incision site. -Wound evaluation and irrigation by Dr. Mckeon of general surgery who found seroma with no purulent drainage. Continue medical management with broad- spectrum antibiotics as above. 4. Chronic left leg cellulitis, present on admission. Active. -Presented with warmth and mild redness of bilateral lower extremities L>R that appears to be stasis dermatitis with possible early cellulitis of left leg. -Continue medical management with broad-spectrum antibiotics as above. 5. Diabetes mellitus type 1, chronic, present on admission. Stable. -Hemoglobin A1c 8.7%. -Patient reports highly variable blood sugars. Her sister's report noncompliance with diet with patient frequently eating candy bars. -Patient with no evidence of nephropathy, retinopathy or neuropathy, however, she does have fibromyalgia. -Held Lantus as patient was hypoglycemic in ED. Not eating. -Continue every 6 hour blood glucose checks and cover with low-dose correctional scale regular insulin every 6 hours while NPO. -Ordered dietitian consult. 6. Fibromyalgia and chronic pain, opiate dependent, present on admission. Stable. -Patient with history of fibromyalgia and spinal stenosis. -Held morphine IR 15 mg every 8 hours and [place] 5/325 every 8 hours as needed for pain as blood pressure is labile. 7. Depression, chronic, present on admission. Stable. -Patient recently lost both her daughter and mother but without overt symptoms of depression. -Held bupropion 150 mg extended release daily and Lexapro 40 mg daily for now. 8. ADD, chronic, present on admission. Stable. -Held Adderall 30 mg 3 times daily for now. 9. Hyperlipidemia, chronic, present on admission. Stable. -Held atorvastatin 20 mg daily for now. 10. Hypothyroidism, chronic, present on admission. Stable. -Continue levothyroxine 112 mg daily. 11. Gastroesophageal reflux disorder, chronic, present on admission. Stable. -Continue PPI. Disposition: Tenuous currently.
[2019-01-03] MEDS: SODIUM CHLORIDE 0.9% 1,000 ML 999 ML IV (12:36)
--- NOTE | 2019-01-03 13:00 | DI.RAD.S_ITS ---
PROCEDURE: XR CHEST FOR PICC 1V INDICATIONS: picc placement COMPARISON: [facility], CT, CT ABDOMEN PELVIS W CON, 01/02/2019, 18:14. [facility], CT, CT CHEST W CON, 09/23/2018, 7:56. [facility], CR, XR CHEST FOR PICC 1V, 06/24/2018, 10:29. [facility], CR, XR CHEST 1V, 01/02/2019, 17:05. FINDINGS: PICC was placed by the intravenous therapy team from the right side. Fluoroscopic spot film demonstrates tip of PICC in the superior vena cava. Bilateral interstitial infiltrates appears unchanged, consistent with pulmonary edema or pneumonia. There is hilar prominence bilaterally. IMPRESSION: Tip of PICC lies within the superior vena cava. Dictated by: Madhavi Perrin M.D. on 01/03/2019 at 14:34 Approved by: Madhavi Perrin M.D. on 01/03/2019 at 14:37
--- NOTE | 2019-01-03 13:01 | P.PN_ITS ---
Subjective Date Patient Seen: 01/03/19 Time Patient Seen: 10:28 Interval history: Pt states she 'feels so bad' but is still unable to verbalize anything specific although she told the medicine doctor she feels a 'burning pain' in her right upper abdomen. LFTs pending, lactate and WBC improved but procal significantly elevated now and pt becoming hypotensive despite ongoing resuscitation. Both areas of cellulitis stable and remain unimpressive as potential causes of her sepsis. When discussing her GB again, she recalls that she had 'sludge drained' a few months ago 'through my stomach.' She does not recall why nor did she follow up with GI or a surgeon. Exam Vital Signs (past 8 hours): - 01/03/19 05:50 01/03/19 07:35 01/03/19 09:00 Temperature 100 F H 99.0 F Pulse Rate 81 Respiratory Rate 85 H 14 Blood Pressure 104/57 L 90/43 L 87/43 L Pulse Oximetry 94 94 01/03/19 09:14 01/03/19 10:42 01/03/19 10:52 Temperature 98.9 F Pulse Rate 79 Respiratory Rate Blood Pressure 92/63 Pulse Oximetry 96 01/03/19 11:50 01/03/19 11:55 01/03/19 12:00 Temperature 99.3 F Pulse Rate 76 79 Respiratory Rate 23 22 Blood Pressure 90/50 L 99/49 L 112/92 H Pulse Oximetry 98 93 01/03/19 12:05 01/03/19 12:15 Temperature Pulse Rate 77 77 Respiratory Rate 21 22 Blood Pressure 103/50 L 101/47 L Pulse Oximetry 97 96 Oxygen Delivery Method Nasal Cannula Oxygen Flow Rate 2 Narrative Exam Narrative: AO but poor historian, uncomfortable, overweight female EOMI, MMM, no scleral icterus unlabored 2 LNC soft, nd, mild pain LUIS, no Mayorga's illicited MAEW R ing inc with blanching erythema surrounding, palpable soft fluid collection; LLE with chronic cellulitis and vascular stasis changes to anterior thomas, soft compartments, moving foot well, no specific increased pain, neuro intact Objective Labs Result Diagrams: 01/03/19 05:11 01/03/19 05:11 Labs: Laboratory Results - last 24 hr 01/02/19 01/02/19 01/02/19 17:25 17:25 17:25 WBC 2.2 L RBC 4.55 Hgb 13.1 Hct 39.6 MCV 87.1 MCH 28.8 MCHC 33.1 RDW 12.9 Plt Count 172 Neut % (Auto) 87.1 H Lymph % (Auto) 12.2 L [place] % (Auto) 0.5 L Eos % (Auto) 0.1 L Baso % (Auto) 0.1 Neut # (Auto) 1900 Lymph # (Auto) 300 L [place] # (Auto) 0 Eos # (Auto) 0 Baso # (Auto) 0 Sodium 138 Potassium 3.9 Chloride 99 Carbon Dioxide 31 BUN 14 Creatinine 0.50 L Estimated GFR > 60.0 BUN/Creatinine Ratio 28.0 H Glucose 111 H Hemoglobin A1c Lactate 2.9 H Calcium 9.5 Total Bilirubin 0.7 AST 77 H ALT 34 Alkaline Phosphatase 133 H Total Protein 7.0 Albumin 3.7 Globulin 3.3 Albumin/Globulin Ratio 1.1 Triglycerides Cholesterol LDL Cholesterol, Calc HDL Cholesterol Procalcitonin Urine Color Urine Appearance Urine pH Ur Specific [place] Urine Protein Urine Glucose (UA) Urine Ketones Urine Occult Blood Urine Nitrate Urine Bilirubin Urine Urobilinogen Ur Leukocyte Esterase Urine RBC Urine WBC Ur Squamous Epith Cells Urine Bacteria Ur Culture Indicated? Micro UA Comment 01/02/19 01/02/19 01/03/19 17:25 19:25 01:55 WBC RBC Hgb Hct MCV MCH MCHC RDW Plt Count Neut % (Auto) Lymph % (Auto) [place] % (Auto) Eos % (Auto) Baso % (Auto) Neut # (Auto) Lymph # (Auto) [place] # (Auto) Eos # (Auto) Baso # (Auto) Sodium Potassium Chloride Carbon Dioxide BUN Creatinine Estimated GFR BUN/Creatinine Ratio Glucose Hemoglobin A1c Lactate 1.8 Calcium Total Bilirubin AST ALT Alkaline Phosphatase Total Protein Albumin Globulin Albumin/Globulin Ratio Triglycerides Cholesterol LDL Cholesterol, Calc HDL Cholesterol Procalcitonin 0.38 Urine Color Yellow Urine Appearance Clear Urine pH 5.0 Ur Specific [place] <=1.005 Urine Protein Negative Urine Glucose (UA) Negative Urine Ketones Negative Urine Occult Blood Negative Urine Nitrate Negative Urine Bilirubin Negative Urine Urobilinogen 0.2 Ur Leukocyte Esterase Negative Urine RBC None seen Urine WBC None seen Ur Squamous Epith Cells 1-5 /hpf Urine Bacteria None seen Ur Culture Indicated? Cult not indicated Micro UA Comment Microscopic normal 01/03/19 01/03/19 01/03/19 05:11 05:11 05:11 WBC RBC Hgb Hct MCV MCH MCHC RDW Plt Count Neut % (Auto) Lymph % (Auto) [place] % (Auto) Eos % (Auto) Baso % (Auto) Neut # (Auto) Lymph # (Auto) [place] # (Auto) Eos # (Auto) Baso # (Auto) Sodium 132 L Potassium 3.6 Chloride 100 Carbon Dioxide 27 BUN 16 Creatinine 0.60 Estimated GFR > 60.0 BUN/Creatinine Ratio 26.7 H Glucose 134 H Hemoglobin A1c 8.7 H Lactate Calcium 8.1 L Total Bilirubin AST ALT Alkaline Phosphatase Total Protein Albumin Globulin Albumin/Globulin Ratio Triglycerides 65 Cholesterol 109 L LDL Cholesterol, Calc 57 HDL Cholesterol 39 L Procalcitonin 21.43 H Urine Color Urine Appearance Urine pH Ur Specific [place] Urine Protein Urine Glucose (UA) Urine Ketones Urine Occult Blood Urine Nitrate Urine Bilirubin Urine Urobilinogen Ur Leukocyte Esterase Urine RBC Urine WBC Ur Squamous Epith Cells Urine Bacteria Ur Culture Indicated? Micro UA Comment 01/03/19 05:11 WBC 6.0 D RBC 3.80 L Hgb 11.4 L Hct 32.6 L MCV 85.7 MCH 30.0 MCHC 35.0 RDW 13.0 Plt Count 143 L Neut % (Auto) 85.0 H Lymph % (Auto) 6.3 L [place] % (Auto) 6.7 Eos % (Auto) 1.9 L Baso % (Auto) 0.1 Neut # (Auto) 5100 Lymph # (Auto) 400 L [place] # (Auto) 400 Eos # (Auto) 100 Baso # (Auto) 0 Sodium Potassium Chloride Carbon Dioxide BUN Creatinine Estimated GFR BUN/Creatinine Ratio Glucose Hemoglobin A1c Lactate Calcium Total Bilirubin AST ALT Alkaline Phosphatase Total Protein Albumin Globulin Albumin/Globulin Ratio Triglycerides Cholesterol LDL Cholesterol, Calc HDL Cholesterol Procalcitonin Urine Color Urine Appearance Urine pH Ur Specific [place] Urine Protein Urine Glucose (UA) Urine Ketones Urine Occult Blood Urine Nitrate Urine Bilirubin Urine Urobilinogen Ur Leukocyte Esterase Urine RBC Urine WBC Ur Squamous Epith Cells Urine Bacteria Ur Culture Indicated? Micro UA Comment Assessment & Plan Assessment & Plan narrative: ABD PAIN - started just after taking first dose of Bactrim on an empty stomach - states pain to some providers but still unimpressive exam - GB stones and thick wall with otherwise equivocal imaging findings for acute process & does not echogenic texture to liver likely fatty in nature --> AST & AP minimally elevated on admission, repeat pending - is intriguing to note her ERCP for CBD blockage a few months ago and makes a biliary source more likely --> while exam may be diminished somewhat by her long-standing DM I and somnolence, I can illicit still minimal- only LUIS- pain response - given her worsening clinical picture, above findings, and lack of other identifiable source, I think most likely her GB is the source but at the very least requires evaluation in the OR with plan for removal --> discussed with pt and sisters who concur --> discussed with extension supervisor partner who evaluated patient and concurs POST-OP INFECTION/ CELLULITIS - erythema minimally improved today, still no pain or purulence - cont' abx for this and her chronic LLE cellulitis which is also unchanged and not impressive for a source for her toxic picture - discussed possibility of opening ing inc further in OR if intra-abdominal findings are unremarkable, otherwise would leave alone given her DM and likely poor healing
[2019-01-03 13:02] LABS: Alanine Aminotransferase 40 IU/L (9-52); Albumin 2.7 g/dL (3.5-5.0); Albumin Globulin Ratio 0.9 (1.0-2.8); Alkaline Phosphatase 101 U/L (38-126); Aspartate Aminotransferase 43 IU/L (14-36); BUN Creatinine Ratio 28.3 (6-22); Bilirubin Total 0.9 mg/dL (0.2-1.3); Blood Urea Nitrogen 17 mg/dL (7-17); Calcium 7.7 mg/dL (8.4-10.2); Carbon Dioxide 26 mmol/L (22-32); Chloride 100 mmol/L (98-107); Estimated Glomerular Filt Rate > 60.0 mL/min (>60); Globulin 2.9 g/dL (1.7-4.1); Glucose 138 mg/dL (80-110); HEMOLYSIS < 15 (0-50); Potassium 3.3 mmol/L (3.4-5.1); Sodium 133 mmol/L (137-145); Total Protein 5.6 g/dL (6.3-8.2)
[2019-01-03 13:04] LABS: Lactate (Lactic Acid) 1.1 mmol/L (0.7-2.1)
--- NOTE | 2019-01-03 13:11 | PC.NURSE ---
Addendum entered by Bethany Menon R.N. 01/03/19 14:56: Dr. Hooper updated on run of V tach and pt request for pain medication. No new orders at this time. Patient due to leave for surgery momentarily. Addendum entered by Bethany Menon R.N. 01/03/19 14:51: 7 beat run V tach noted on wool supplier at 1429. Message left for Dr. Hooper to report occurrence. Pt asymptomatic. Original Note: Transfer/Day Shift Note Transferred to room 106 from room 227 at 1150 by bed. Report received from Zuleyka WREN. Patient drowsy and diaphoretic but arouses easily to voice and is able to answer questions appropriately. Oxygen sats 94% on 2L NC, tachypneic in the 20s. Denies feeling short of breath and denies pain on arrival. Reports chest pressure - MD aware and EKG completed and troponin negative. CBG 161. MAP over 60 on arrival with 2nd 1L NS bolus infusing. No further boluses have been required, NS running at 125 ml/hr. DL PICC placed at bedside by Juliana WREN - verified via xray and both ports connected to IV. Pt reports pain on RUQ palpation. Intermittent nausea. Bah catheter in place and draining clear ne urine. NSR with rate in the 70s. Pt requesting morphine per home routine - call out to Dr. Hooper. Report given to Pallavi WREN in preparation for surgery. Consent is signed and with chart. Call light within reach. at bedside.
[2019-01-03 13:13] LABS: Troponin I < 0.012 ng/mL (0.01-0.034)
--- NOTE | 2019-01-03 13:20 | PM.PN.1 ---
Subjective Date Patient Seen: 01/03/19 Time Patient Seen: 13:21 Interval history: Pt admitted with sepsis - source initially unclear. This Am developed fluid responsive septic shock and was transfered to ICU. Continues on pip/linnette + vanco. Today now with RUQ sub costal margin pain seems progressive compared to Dr Mckeon's exam yesterday. Mild pain in LLE but pt clearly and persitently stating RUQ much worse of the two. Spoke to pt in room - LLE pretibial errythema appears identical to him as in weeks prior both in distribution and intensity. Area previously tender at home. Exam Vital Signs (past 8 hours): - 01/03/19 05:50 01/03/19 07:35 01/03/19 09:00 Temperature 100 F H 99.0 F Pulse Rate 81 Respiratory Rate 85 H 14 Blood Pressure 104/57 L 90/43 L 87/43 L Pulse Oximetry 94 94 01/03/19 09:14 01/03/19 10:42 01/03/19 10:52 Temperature 98.9 F Pulse Rate 79 Respiratory Rate Blood Pressure 92/63 Pulse Oximetry 96 01/03/19 11:50 01/03/19 11:55 01/03/19 12:00 Temperature 99.3 F Pulse Rate 76 79 Respiratory Rate 23 22 Blood Pressure 90/50 L 99/49 L 112/92 H Pulse Oximetry 98 93 01/03/19 12:05 01/03/19 12:15 Temperature Pulse Rate 77 77 Respiratory Rate 21 22 Blood Pressure 103/50 L 101/47 L Pulse Oximetry 97 96 Oxygen Delivery Method Nasal Cannula Oxygen Flow Rate 2 Narrative Exam Narrative: appears acutely ill, diaphoretic. tachypnic regular RRR , resonably strong radial pulse Abd soft, non distended, is tender along R costal margin to deep palpation, equivical romeo sign R groin - small opening draining serrous liquid, subtle nontender blanching errythema LLE - near entire pretibial area with wide, tender, errythema with central dry scale. Objective Labs Result Diagrams: 01/03/19 05:11 01/03/19 12:25 Labs: Laboratory Results - last 24 hr 01/02/19 01/02/19 01/02/19 17:25 17:25 17:25 WBC 2.2 L RBC 4.55 Hgb 13.1 Hct 39.6 MCV 87.1 MCH 28.8 MCHC 33.1 RDW 12.9 Plt Count 172 Neut % (Auto) 87.1 H Lymph % (Auto) 12.2 L [place] % (Auto) 0.5 L Eos % (Auto) 0.1 L Baso % (Auto) 0.1 Neut # (Auto) 1900 Lymph # (Auto) 300 L [place] # (Auto) 0 Eos # (Auto) 0 Baso # (Auto) 0 Sodium 138 Potassium 3.9 Chloride 99 Carbon Dioxide 31 BUN 14 Creatinine 0.50 L Estimated GFR > 60.0 BUN/Creatinine Ratio 28.0 H Glucose 111 H Hemoglobin A1c Lactate 2.9 H Calcium 9.5 Total Bilirubin 0.7 AST 77 H ALT 34 Alkaline Phosphatase 133 H Troponin I Total Protein 7.0 Albumin 3.7 Globulin 3.3 Albumin/Globulin Ratio 1.1 Triglycerides Cholesterol LDL Cholesterol, Calc HDL Cholesterol Procalcitonin Urine Color Urine Appearance Urine pH Ur Specific [place] Urine Protein Urine Glucose (UA) Urine Ketones Urine Occult Blood Urine Nitrate Urine Bilirubin Urine Urobilinogen Ur Leukocyte Esterase Urine RBC Urine WBC Ur Squamous Epith Cells Urine Bacteria Ur Culture Indicated? Micro UA Comment 01/02/19 01/02/19 01/03/19 17:25 19:25 01:55 WBC RBC Hgb Hct MCV MCH MCHC RDW Plt Count Neut % (Auto) Lymph % (Auto) [place] % (Auto) Eos % (Auto) Baso % (Auto) Neut # (Auto) Lymph # (Auto) [place] # (Auto) Eos # (Auto) Baso # (Auto) Sodium Potassium Chloride Carbon Dioxide BUN Creatinine Estimated GFR BUN/Creatinine Ratio Glucose Hemoglobin A1c Lactate 1.8 Calcium Total Bilirubin AST ALT Alkaline Phosphatase Troponin I Total Protein Albumin Globulin Albumin/Globulin Ratio Triglycerides Cholesterol LDL Cholesterol, Calc HDL Cholesterol Procalcitonin 0.38 Urine Color Yellow Urine Appearance Clear Urine pH 5.0 Ur Specific [place] <=1.005 Urine Protein Negative Urine Glucose (UA) Negative Urine Ketones Negative Urine Occult Blood Negative Urine Nitrate Negative Urine Bilirubin Negative Urine Urobilinogen 0.2 Ur Leukocyte Esterase Negative Urine RBC None seen Urine WBC None seen Ur Squamous Epith Cells 1-5 /hpf Urine Bacteria None seen Ur Culture Indicated? Cult not indicated Micro UA Comment Microscopic normal 01/03/19 01/03/19 01/03/19 05:11 05:11 05:11 WBC RBC Hgb Hct MCV MCH MCHC RDW Plt Count Neut % (Auto) Lymph % (Auto) [place] % (Auto) Eos % (Auto) Baso % (Auto) Neut # (Auto) Lymph # (Auto) [place] # (Auto) Eos # (Auto) Baso # (Auto) Sodium 132 L Potassium 3.6 Chloride 100 Carbon Dioxide 27 BUN 16 Creatinine 0.60 Estimated GFR > 60.0 BUN/Creatinine Ratio 26.7 H Glucose 134 H Hemoglobin A1c 8.7 H Lactate Calcium 8.1 L Total Bilirubin AST ALT Alkaline Phosphatase Troponin I Total Protein Albumin Globulin Albumin/Globulin Ratio Triglycerides 65 Cholesterol 109 L LDL Cholesterol, Calc 57 HDL Cholesterol 39 L Procalcitonin 21.43 H Urine Color Urine Appearance Urine pH Ur Specific [place] Urine Protein Urine Glucose (UA) Urine Ketones Urine Occult Blood Urine Nitrate Urine Bilirubin Urine Urobilinogen Ur Leukocyte Esterase Urine RBC Urine WBC Ur Squamous Epith Cells Urine Bacteria Ur Culture Indicated? Micro UA Comment 01/03/19 01/03/19 01/03/19 05:11 12:25 12:25 WBC 6.0 D RBC 3.80 L Hgb 11.4 L Hct 32.6 L MCV 85.7 MCH 30.0 MCHC 35.0 RDW 13.0 Plt Count 143 L Neut % (Auto) 85.0 H Lymph % (Auto) 6.3 L [place] % (Auto) 6.7 Eos % (Auto) 1.9 L Baso % (Auto) 0.1 Neut # (Auto) 5100 Lymph # (Auto) 400 L [place] # (Auto) 400 Eos # (Auto) 100 Baso # (Auto) 0 Sodium 133 L Potassium 3.3 L Chloride 100 Carbon Dioxide 26 BUN 17 Creatinine 0.60 Estimated GFR > 60.0 BUN/Creatinine Ratio 28.3 H Glucose 138 H Hemoglobin A1c Lactate Calcium 7.7 L Total Bilirubin 0.9 AST 43 H ALT 40 Alkaline Phosphatase 101 Troponin I < 0.012 Total Protein 5.6 L Albumin 2.7 L Globulin 2.9 Albumin/Globulin Ratio 0.9 L Triglycerides Cholesterol LDL Cholesterol, Calc HDL Cholesterol Procalcitonin Urine Color Urine Appearance Urine pH Ur Specific [place] Urine Protein Urine Glucose (UA) Urine Ketones Urine Occult Blood Urine Nitrate Urine Bilirubin Urine Urobilinogen Ur Leukocyte Esterase Urine RBC Urine WBC Ur Squamous Epith Cells Urine Bacteria Ur Culture Indicated? Micro UA Comment 01/03/19 12:25 WBC RBC Hgb Hct MCV MCH MCHC RDW Plt Count Neut % (Auto) Lymph % (Auto) [place] % (Auto) Eos % (Auto) Baso % (Auto) Neut # (Auto) Lymph # (Auto) [place] # (Auto) Eos # (Auto) Baso # (Auto) Sodium Potassium Chloride Carbon Dioxide BUN Creatinine Estimated GFR BUN/Creatinine Ratio Glucose Hemoglobin A1c Lactate 1.1 Calcium Total Bilirubin AST ALT Alkaline Phosphatase Troponin I Total Protein Albumin Globulin Albumin/Globulin Ratio Triglycerides Cholesterol LDL Cholesterol, Calc HDL Cholesterol Procalcitonin Urine Color Urine Appearance Urine pH Ur Specific [place] Urine Protein Urine Glucose (UA) Urine Ketones Urine Occult Blood Urine Nitrate Urine Bilirubin Urine Urobilinogen Ur Leukocyte Esterase Urine RBC Urine WBC Ur Squamous Epith Cells Urine Bacteria Ur Culture Indicated? Micro UA Comment Assessment & Plan Assessment & Plan narrative: 68 yo woman HD2 with fluid responsive septic shock and clinical decline since admission prompting transfer to ICU this am. Pt source is currently not definative but 3 potential sources are possible as below. 1) biliary tree, gallbladder Now developing RUQ pain and tenderness c/w acute calculous cholecystisis. On imaging GB is quite dialated with stones, wall thickness however is 3mm with CT showing a paucity of adjacent fat stranding. Prior history of what may have been choledolcolithiasis and ERCP. Biliary dilation is improved over imaging earlier this yr and T bili remains WNL. 2) R groin seroma cavity - mild blanching errythema is suspicious however, fluid remains clear and area generally non tender. 3) LLE pre tibial area with venous stasis dermatitis - appears stable per pt and family history, while tender it is significantly less so than RUQ Plan: Unfortunately available evidence does not point definitively to a clear source however given the clinical decline in last few hrs pt needs potential sources addressed. Propensity of data favors the gallbladder. Will start with lap ccy with IOC to ensure CBD is open and R/u cholangitis. If intraop GB not clearly infected with open up and wash out seroma cavity in case of infection and dress with wound vac vs WTD. Pt remains on good gram + coverage with vanco that to address potential cellulitis. - Urgent CCY with IOC - Possible seroma cavity washout - Risk discusssed including bleeding, infection, injury to adjacent structures such as bile ducts, need to convert to open, possible uninfected gallbladder. Repleating K
--- NOTE | 2019-01-03 13:22 | CM.DANOTE ---
Addendum entered by Frances Kaur 01/03/19 13:26: DCP/continued: Received notification from nursing staff that patient became SOB and it was determined that patient needs to transfer to ICU. Surgery anticipated today to remove gallbladder. CM team will follow closely. Original Note: DCP/Assessment: Reviewed chart. Patient is a 68yr old female admitted to [facility] with sepsis. PCP listed is Brittany Warner. Primary payor is [facility]. Met with patient and several family members at bedside. Patient resting in bed at time of visit with [address]. Patient reports that she resides with her spouse/Gene in [facility]. Patient indicates that she is completely I in all ADL's. Family agree. Two sisters Lisa and Daniella also at bedside. Notified patient that CM team would continue to follow if d/c needs were to arise. Patient and family appreciative. Patient currently with surgery consult. P: Anticipate home when stable. LAURIE Castanon Discharge Planning/Care Management CM Discharge Assessment Start: 01/03/19 13:20 Freq: Status: Active Protocol: Document 01/03/19 13:20 KJS (Rec: 01/03/19 13:22 S [id number]) Discharge Planning Assessment Assigned [employer]umber LAURIE Castanon Contact Information Jamey Kirby (spouse) Advance Directives? Yes History Provided By Patient Family Member Medical Record Prior Living Arrangements House Household Members spouse children Type of transporation used prior to Drives own vehicle admit Independent with ADL's Yes Is patient alert and oriented? Yes Caregiver for Another No Patient/Family Preference Home with Home Health Comment Pending hospitalization Discharge Plan Home Whiteboard Updated in Patient Room with Yes name and ext. # of [employer]ing Plumber Review Status In Process Next Review Type Continued Stay Review
[2019-01-03] MEDS: POTASSIUM CHLORIDE 60 MEQ in SODIUM CHLORIDE 0.9% 500 ML 88.333 ML IV (14:10)
[2019-01-03] MEDS: VANCOMYCIN 1,500 MG/300 ML FROZ.PIGGY 200 MG IV (16:00)
[2019-01-03] MEDS: BUPIVACAINE 0.25% W/ EPI (PF) 10 ML VIAL INJ (16:20)
[2019-01-03] MEDS: IOPAMIDOL 50 ML VIAL INJ (17:07)
--- NOTE | 2019-01-03 18:04 | P.OP_ITS ---
Operative Date/Time/Diagnoses Date of procedure: 01/03/19 Time of procedure: 18:01 Pre-op diagnosis: sepsis, cholecystitis Post-op diagnosis: other (Early acute cholecystitis with common bile duct obstruction ) Procedure & Clinicians Procedure: laproscopic cholecystectomy laproscopic IOC I and D of R groin seroma Same procedure as scheduled: Yes Indications: A 68-year-old woman with fluid responsive septic shock and history of choledocholithiasis several months ago s/p ERCP. Presented with sepsis with initally unclear source but with evolving RUQ pain. In addition pt had wound dehissence from R groin LN biopsy leaking serous fluid - questionable additional source. Surgeon: Mitchell Bradley Click Yes if Unassisted: Yes Anesthesia Type: General Operative Notes Findings: 1) Mild gallbladder inflammation but with signficant amount of sludge and gravel obstructing cystic duct. 2) IOC demonstrating - good retrograde flow to R and L biliary tree, 3cm cystic duct, initially no egress into the duodenum - with multiple attempts flushed obstructing presumed sludge into duodenum with then good egress of contrast. On final flush no filling defects. 3) Cloudy fluid in seroma cavity - cultured and flushed out Closure Type: primary Specimen(s): other (gallbladder and contents) Prosthetic devices, grafts, tissues, transplants, or devices: Wound vac to R groin Estimated Blood Loss (mL): 10 Blood products transfused: none Procedure in detail: Patient was brought to the operating room she is intubated without incident she was prepped and draped in usual sterile fashion and time- out was completed. Entry into the abdomen was performed using Veress needle technique. Small wheal of local anesthetic was raised at perkins's point at the midclavicular line on the left costal margin. A small stab incision was made at this site. A Veress needle was then advanced with a distinct click upon entering into the abdomen. The needle was aspirated there was no blood or succus, and there was a confirmatory saline drop test. The Veress needle was connected to insufflation tubing and initial insufflation pressures were low. The abdomen was then insufflated to 15 mm of mercury a small vertically oriented incision was placed just superior to the umbilical crown a 5 mm port was then advanced with direct Visiport technique through the layers of the abdominal wall until the dark space of the insufflated abdomen was entered. The trocar obturator was then removed and laparoscopic was introduced into the abdomen. The Veress needle insertion site was inspected there was no bleeding or injury a nd the Veress needle was removed without incident. Two 5 mm ports were then placed in the right upper quadrant additional 12 mm port placed in the epigastrium. The fundus of the gallbladder was grasped and retracted cephalad in the this exposed multiple adhesions between the duodenum and the wall of the body of the gallbladder as well as multiple omental adhesions. These were carefully stripped down with combination of blunt and hook cautery. Great care was taken to not encroach in anyway on the duodenum with the cautery. At this point the infundibulum of the gallbladder became visible this was grasped and retracted laterally the visceral peritoneum on the medial lateral aspects the gallbladder was then incised using hook cautery using blunt dissection we then began to dissect the adventitial tissue in the cystic triangle. This readily exposed a enlarged cystic duct at which a window was created behind. A prominent cystic artery was identified just posterior to the gallbladder lymph node as well a window was made behind the cystic artery which was identified to directly enter the gallbladder it was then clipped and divided without difficulty. Additional adventitial tissue was divided within the cystic triangle and the critical view of safety was obtained. Then proceeded to perform a cholangiogram. An additional 5 mm port was placed in the abdomen through this a cholangiogram catheter was brought through. A clip was placed at the junction of the cystic duct and the gallbladder and then a small ductotomy was made using laparoscopic mets. Using [place] graspers significant amount of biliary sludge and gravel was milked out of the cystic duct. A cholangiogram catheter was directed down into the duct multiple times to flush additional sludge and debris. With the difficultly cleared the cholangiogram catheter was placed into the cystic duct and clipped into place. With the C-arm brought over the patient's a cholangiogram was obtained with findings as above. Of note initially there was a cutoff of the flow within the distal common bile duct. After several attempts at flushing with greater greater pressure this was tacked we felt to release and a large bolus of contrast flushed into the duodenum. Subsequent flushes easily drain contrast into the duodenum. There were no filling defects at the end of the IOC. The C-arm was then removed the patient was repositioned the clip holding the cholangiogram catheter was removed 3 clips were placed on the distal cystic duct and the duct was fully transected. The gallbladder was then reflected off the gallbladder fossa without incident there was a small posterior cystic artery that was encountered clipped with a single clip and then divided.. The gallbladder was then placed in Endo-Catch bag and removed from the abdomen via the epigastric port site. The area was then copiously irrigated suctioned dry hemostasis was excellent. The epigastric port site was then closed using 2 trans fascial 0 Vicryl sutures placed with a suture Passer device. Ports were then withdrawn under direct visualization the abdomen was deinsufflated. Port sites were then irrigated out and closed with monofilament absorbable suture in a subcuticular fashion. An additional deep dermal layer of 2 0 Vicryl was used on the epigastric port. skin glue was then used as dressing At this point the groin which had been previously prepped on the right side was exposed. The skin at the prior previous incision was opened by cutting sutures. Culture swabs were introduced into the deep tissue spaces and sent. Fair amount of cloudy serous fluid was able to be expressed without difficulty. A black wound VAC sponge was then introduced several cm into the seroma pocket. Occlusive dressing and then a drainage tubing was applied in the typical VAC fashion. Patient tolerated the procedure well She was awakened and brought to PACU without incident Complications: none Condition: stable Disposition: ICU Plan for aftercare: PACU and then ICU
--- NOTE | 2019-01-03 18:05 | SUR.PHASEI ---
pt wound vac on and showing continous therpy at [address] Villarreal notifed of pt blood glucose reading in pacu. Received verbal order to give 4 units of Novolog SQ now.
[2019-01-03] MEDS: INSULIN ASPART 100 UNIT/ML 10ML VIAL SUBCUT (18:13)
--- NOTE | 2019-01-03 18:34 | SUR.PHASEI ---
Report called to HOLGER Cadena in ICU. Pt in stable condition, vss. pt resting in bed with eyes closed, easily arouses to voice when spoken to. pt appears comfortable at this time and denies any nausea.
--- NOTE | 2019-01-03 18:55 | SUR.PHASEI ---
pt transferred to icu in stable condition, vss. pt transferred on 3L nasal cannula, 02 remained above 95%. pt resting with eyes closed, easily arousable to voice when spoken to. family in room upon arrival to room. bedside report given to HOLGER Cadena and transferred care of pt to her at that time.
[2019-01-03] MEDS: LACTATED RINGERS 1,000 ML 100 ML IV (19:34)
[2019-01-03] MEDS: INSULIN ASPART 100 UNIT/ML INSULN PEN SUBCUT (19:36)
[2019-01-03] MEDS: MORPHINE 4 MG/ML INJ IV (19:42)
[2019-01-03] MEDS: GABAPENTIN 300 MG CAPSULE 900 MG PO (20:45)
[2019-01-03] MEDS: METHOCARBAMOL 500 MG TABLET PO (20:45)
[2019-01-03] MEDS: LACTOBACILLUS ACIDOPHILUS TABLET 1 EACH PO (20:47)
[2019-01-03] MEDS: ATORVASTATIN 20 MG TABLET PO (20:47)
--- NOTE | 2019-01-03 23:08 | PC.NURSE ---
carlie note pt taken to OR at 15:30. Pt returned from PACU at 18:40. pt has wound vac to right groin. O2 3 L with sats 100%. Decreased O2 to 2L with sats 98%. Pt given 4 mg IV morphine and pt then slept, was at normal pain level of 3. Then family came out of room and said pt was in extreme pain and needed more medicine. Talked to pt and she has 9/[address] Bradley and received new order.
[2019-01-04] VITALS (16 sets, daily range): BP systolic 92–120; BP diastolic 42–57; PULSE 58–79; RESP 12–20; TEMP 36.8–37.8; O2SAT 92–100
[2019-01-04] MEDS: ACETAMINOPHEN 325 MG TABLET 975 MG PO ×4 (00:11→20:42)
[2019-01-04] MEDS: PIPERACILLIN-TAZO 3.375 GM/50 ML FROZ.PIGGY IV ×3 (00:12→15:47)
[2019-01-04] MEDS: ONDANSETRON 4 MG/2 ML INJ IV (00:18)
[2019-01-04] MEDS: MORPHINE 4 MG/ML INJ IV ×5 (02:30→17:29)
[2019-01-04] MEDS: VANCOMYCIN 1,500 MG/300 ML FROZ.PIGGY 200 MG IV ×2 (04:47→20:40)
--- NOTE | 2019-01-04 05:09 | PC.NURSE ---
NOC note: Pt has been sleeping off and on, wakes to request pain medication for pain 7-03/26, PRN Morphine given as ordered. Pt has minimal output from wound vac. Bah in place with dark yellow urine, Pt currently on O2 at 1L NC, Sating 95%. BT x4 and hypoactive, pt reports passing flatus. ABD is tender to palpation, Lap sites intact with glue, no drainage, ULICES. Pt reported nausea at 0015, PRN Zofran given with good results. Temp was 100.1 at 0000 and down to 99.2 at 0230.
[2019-01-04] MEDS: LACTATED RINGERS 1,000 ML 100 ML IV ×2 (05:34→15:46)
[2019-01-04] MEDS: LEVOTHYROXINE 112 MCG TABLET PO (05:43)
[2019-01-04] MEDS: HEPARIN 5,000 UNIT/ML VIAL 5000 UNIT SUBCUT ×3 (05:43→22:08)
[2019-01-04] MEDS: INSULIN ASPART 100 UNIT/ML INSULN PEN SUBCUT ×4 (05:45→22:10)
[2019-01-04] MEDS: METHOCARBAMOL 500 MG TABLET PO ×3 (08:37→22:08)
[2019-01-04] MEDS: LACTOBACILLUS ACIDOPHILUS TABLET 1 EACH PO ×3 (08:37→17:29)
[2019-01-04] MEDS: PANTOPRAZOLE 40 MG VIAL 20 MG IV (08:39)
--- NOTE | 2019-01-04 08:40 | PM.PN.1 ---
Subjective Date Patient Seen: 01/04/19 Time Patient Seen: 08:40 Interval history: Fatigued this am, but overall feeling better after surgery. Main complaint is chronic shoulder/back pain Post surgical pain is managed overnight septic physiology resolved. HR now in 50s. No pressors or fluid boluses needed Exam Vital Signs (past 8 hours): - 01/04/19 01:13 01/04/19 02:04 01/04/19 03:06 Temperature Pulse Rate 75 79 77 Respiratory Rate 19 16 15 Blood Pressure 117/52 L 107/45 L Pulse Oximetry 99 96 96 01/04/19 04:06 01/04/19 05:45 01/04/19 06:09 Temperature 98.9 F Pulse Rate 64 68 69 Respiratory Rate 13 12 12 Blood Pressure 108/52 L 109/48 L 92/42 L Pulse Oximetry 96 96 95 01/04/19 07:34 Temperature 98.4 F Pulse Rate 58 L Respiratory Rate 13 Blood Pressure 97/46 L Pulse Oximetry 97 Oxygen Delivery Method Nasal Cannula Oxygen Flow Rate 1 Narrative Exam Narrative: NAD, skin now dry, looks well breathing confortably on 1L NC RRR strong radial pulse Abd - soft, minimally tender in RUQ, surgical sites CDI, non distended Mons pubis still with mild blanching errythema - wound vac in place draining seroma cavity on R Objective Labs Result Diagrams: 01/03/19 05:11 01/03/19 12:25 Labs: Laboratory Results - last 24 hr 01/03/19 01/03/19 01/03/19 12:25 12:25 12:25 Sodium 133 L Potassium 3.3 L Chloride 100 Carbon Dioxide 26 BUN 17 Creatinine 0.60 Estimated GFR > 60.0 BUN/Creatinine Ratio 28.3 H Glucose 138 H Lactate 1.1 Calcium 7.7 L Total Bilirubin 0.9 AST 43 H ALT 40 Alkaline Phosphatase 101 Troponin I < 0.012 Total Protein 5.6 L Albumin 2.7 L Globulin 2.9 Albumin/Globulin Ratio 0.9 L Nasal Screen MRSA (PCR) 01/03/19 12:44 Sodium Potassium Chloride Carbon Dioxide BUN Creatinine Estimated GFR BUN/Creatinine Ratio Glucose Lactate Calcium Total Bilirubin AST ALT Alkaline Phosphatase Troponin I Total Protein Albumin Globulin Albumin/Globulin Ratio Nasal Screen MRSA (PCR) Negative for mrsa Assessment & Plan Assessment & Plan narrative: 68 yo F POD1 s/p lap ccy with IOC and I and D of R groin seroma pocket 1) sepsis - now resolved Suspect biliary tree was primary source between occluded cystic and CBD ducts on IOC. Can deesculate abx starting tomorrow - now with source control 2) R groin seroma - awaiting cultures - MWF wound vac changes until closes 3) Post CCY OK to ADAT We will continue to follow with you
[2019-01-04 09:57] LABS: Add Manual Diff / Slide Review NO; Basophils Absolute Auto 0 /uL (0-100); Eosinophils Absolute Auto 300 /uL (0-450); Eosinophils Percent Auto 5.9 % (2-4); Hematocrit 31.9 % (36-46); Hemoglobin 10.7 g/dL (12.0-16.0); Lymphocytes Absolute Auto 1200 /uL (1100-4500); Lymphocytes Percent Auto 21.8 % (25-40); Mean Corpuscular HGB Conc 33.7 % (30-36); Mean Corpuscular Hemoglobin 29.6 PG (26-34); Mean Corpuscular Volume 87.8 fL (80-100); Monocytes Absolute Auto 300 /uL (0-900); Monocytes Percent Auto 5.4 % (3-14); Neutrophils Absolute Auto 3800 /uL (1500-7000); Neutrophils Percent Auto 66.9 % (50-75); Platelet Count 130 X10^3/uL (150-400); Red Blood Cell Count 3.63 X10^6/uL (4.0-5.2); Red Cell Distribution Width 13.1 % (11.6-14.8); White Blood Cell Count 5.6 X10^3/uL (4.5-11.0)
[2019-01-04 10:38] LABS: Alanine Aminotransferase 30 IU/L (9-52); Albumin 2.4 g/dL (3.5-5.0); Albumin Globulin Ratio 0.9 (1.0-2.8); Alkaline Phosphatase 84 U/L (38-126); Aspartate Aminotransferase 25 IU/L (14-36); Bilirubin Total 0.4 mg/dL (0.2-1.3); Blood Urea Nitrogen 16 mg/dL (7-17); Calcium 7.8 mg/dL (8.4-10.2); Carbon Dioxide 25 mmol/L (22-32); Chloride 103 mmol/L (98-107); Estimated Glomerular Filt Rate > 60.0 mL/min (>60); Globulin 2.7 g/dL (1.7-4.1); Glucose 142 mg/dL (80-110); HEMOLYSIS < 15 (0-50); Magnesium 1.6 mg/dL (1.6-2.3); Potassium 3.8 mmol/L (3.4-5.1); Sodium 132 mmol/L (137-145); Total Protein 5.1 g/dL (6.3-8.2)
[2019-01-04 10:53] LABS: Procalcitonin 9.56 ng/mL (<0.5)
--- NOTE | 2019-01-04 15:21 | DIET.PN ---
Noted diet consult for non-compliant DM type 1. Dx: sepsis, post op infection; wound dehiscence, DM1 Diet: Clear liq Pt sleeping a lot; medicated. Had wound vac placed yesterday. Will f/u when diet advances and pt more alert.
--- NOTE | 2019-01-04 18:07 | P.PN_ITS ---
Subjective Date Patient Seen: 01/04/19 Interval history: Alissa Kirby is a 68-year-old female patient with a a past medical history significant for diabetes mellitus type 1, hyperlipidemia, hypothyroidism, menin gioma, Sjogren syndrome, fibromyalgia, venous stasis dermatitis who presented for abrupt onset abdominal pain with nausea and vomiting thought to be related to Bactrim use. The patient is resting in bedside chair comfortably. She is rather somnolent but easily arousable. She requests that her morphine be restarted and IV morphine be stopped as it makes her rather sleepy. She endorses mild abdominal pain otherwise she has no complaints. She denies headache, chest pain, shortness of breath, nausea, vomiting, fever, chills, diarrhea or constipation. She has a Bah catheter in place with good urine output. Exam Vital Signs (past 8 hours): - 01/04/19 11:00 01/04/19 14:28 01/04/19 16:35 Temperature 98.3 F 98.5 F Pulse Rate 75 63 69 Respiratory Rate 13 12 12 Blood Pressure 106/50 L 119/49 L 118/53 L Pulse Oximetry 92 94 94 Oxygen Delivery Method Room Air Oxygen Flow Rate 1 Narrative Exam Narrative: General: Older female sitting in bedside chair, in no acute distress, somnolent but easily arousable, appropriately interactive. HEENT: Normocephalic, atraumatic. External ears without defect. Pupils equal, round, and reactive to light. Anicteric sclerae, moist conjunctivae, and no lid lag. Neck: Supple with full range of motion. No lymphadenopathy or thyromegaly. Cardiovascular: Regular rate and rhythm without murmurs, rubs, or gallops appreciated. Pulmonary: Clear to auscultation bilaterally without crackles, wheezes, or rhonchi. Normal respiratory effort with no use of accessory muscles. Abdomen: Soft, mild tenderness in right upper quadrant, bowel sounds present, nondistended. Laparoscopic insertion site with bandage in place C/D/I. Extremities: No clubbing, cyanosis, or edema. Skin: Normal temperature, turgor, and texture; no rash, ulcers, or subcutaneous nodules appreciated. Neurological: Cranial nerves grossly intact. Psychiatric: Somnolent but easily arousable. Appears alert and oriented to person, place, and time. Objective Labs Result Diagrams: 01/04/19 08:15 05/21/19 08:15 Labs: Laboratory Results - last 24 hr 01/04/19 01/04/19 01/04/19 08:15 08:15 08:15 WBC 5.6 RBC 3.63 L Hgb 10.7 L Hct 31.9 L MCV 87.8 MCH 29.6 MCHC 33.7 RDW 13.1 Plt Count 130 L Neut % (Auto) 66.9 Lymph % (Auto) 21.8 L [place] % (Auto) 5.4 Eos % (Auto) 5.9 H Baso % (Auto) 0.0 Neut # (Auto) 3800 Lymph # (Auto) 1200 [place] # (Auto) 300 Eos # (Auto) 300 Baso # (Auto) 0 Sodium 132 L Potassium 3.8 Chloride 103 Carbon Dioxide 25 BUN 16 Creatinine 0.50 L Estimated GFR > 60.0 BUN/Creatinine Ratio 32.0 H Glucose 142 H Calcium 7.8 L Magnesium 1.6 Total Bilirubin 0.4 AST 25 ALT 30 Alkaline Phosphatase 84 Total Protein 5.1 L Albumin 2.4 L Globulin 2.7 Albumin/Globulin Ratio 0.9 L Procalcitonin 9.56 H Assessment & Plan Assessment & Plan narrative: Alissa Kirby is a 68-year-old female patient with a a past medical history significant for diabetes mellitus type 1, hyperlipidemia, hypothyroidism, meningioma, Sjogren syndrome, fibromyalgia, venous stasis dermatitis who presented for abrupt onset abdominal pain with nausea and vomiting thought to be related to Bactrim use. 1. Acute severe sepsis, present on admission. Resolved. -Sepsis criteria met including: Febrile (Temp 103F), leukopenia (WBC 2.2), hy potensive (BP 87/43) with lactic acidosis of 2.9 with source thought to be cholecystitis. -Early goal-directed therapy med including: Broad-spectrum antibiotics with vancomycin and Zosyn, as well as, IV fluid resuscitation. Continue to bolus as needed for blood pressure support. If patient becomes unresponsive to IV fluids will start Levophed gtt. Placed order for PICC line. 2. Acute cholangitis, status post cholecystectomy and IOC, present on admission. Resolved. -Patient is immunosuppressed with long-term antibiotic use and type 1 diabetes. -Continue vancomycin with dosing per pharmacy and Zosyn 3.375 g every 8 hours. Plan to deescalate antibiotics tomorrow. -Continue LR 100 mL/hr. -Blood cultures x2 have no growth to date. -UA clean and without infection. Placed Bah catheter for comfort. -WBC 5.6 and stable. Procalcitonin peaked at 21.43 and now trending down at 9.56. Continue to trend daily. -CT abdomen and pelvis with contrast demonstrated 7.9 x 5.7 x 5.4 cm fluid sivan ection in the right groin which could represent postsurgical seroma and prominence of the gallbladder and gallbladder wall is massively changed compared to previous exam. -General surgery, Dr. Bradley, was consulted and performed cholecystectomy with intraoperative cholangiogram and clearance of cystic and CBD duct. Continue postoperative management per surgery. Advance diet as tolerated. 3. Acute right groin seroma status post I&D with wound VAC in place, secondary to lymph node removal, status post I&D, present on admission. Active. -Patient recently had an enlarged lymph node removed then developed a seroma. Lymph node pathology was benign. -Now status post I&D of seroma pocket with wound VAC in place. Wound culture pending. Continue medical management with broad-spectrum antibiotics as above. 4. Chronic left leg cellulitis, present on admission. Active. -Presented with warmth and mild redness of bilateral lower extremities L>R that appears to be stasis dermatitis with possible early cellulitis of left leg. -Continue medical management with broad-spectrum antibiotics as above. 5. Diabetes mellitus type 1, chronic, present on admission. Stable. -Hemoglobin A1c 8.7%. -Patient reports highly variable blood sugars. Her sister's report noncompliance with diet with patient frequently eating candy bars. -Patient with no evidence of nephropathy, retinopathy or neuropathy, however, she does have fibromyalgia. -Held Lantus initially as the patient was mildly hypoglycemic due to no PO intake. Restarted Lantus at half normal dose 15 units daily at bedtime. -Continue ACHS blood glucose checks and low-dose correctional scale insulin. -Ordered dietitian consult. 6. Fibromyalgia and chronic pain, opiate dependent, present on admission. Stable. -Patient with history of fibromyalgia and spinal stenosis. -Restarted home morphine IR 15 mg every 8 hours and will titrate up as needed. Discontinued IV morphine as patient was significantly somnolent. 7. Depression, chronic, present on admission. Stable. -Patient recently lost both her daughter and mother but without overt symptoms of depression. -Restart bupropion 150 mg extended release daily and Lexapro 40 mg daily tomorrow. 8. ADD, chronic, present on admission. Stable. -Restart Adderall 30 mg 3 times daily tomorrow. 9. Hyperlipidemia, chronic, present on admission. Stable. -restart atorvastatin 20 mg daily tomorrow. 10. Hypothyroidism, chronic, present on admission. Stable. -Continue levothyroxine 112 mg daily. 11. Gastroesophageal reflux disorder, chronic, present on admission. Stable. -Continue PPI. Disposition: Patient likely to discharge home and several days after recovered from acute cholecystectomy and I&D of seroma.
[2019-01-04] MEDS: ATORVASTATIN 20 MG TABLET PO (21:42)
[2019-01-04] MEDS: GABAPENTIN 300 MG CAPSULE 900 MG PO (21:43)
[2019-01-04] MEDS: MORPHINE IR 15 MG TABLET PO (22:07)
[2019-01-04] MEDS: INSULIN GLARGINE 100 UNIT/ML 3ML PEN 15 UNIT SUBCUT (22:21)
[2019-01-05] MEDS: ACETAMINOPHEN 325 MG TABLET 975 MG PO ×3 (00:24→12:23)
[2019-01-05] MEDS: PIPERACILLIN-TAZO 3.375 GM/50 ML FROZ.PIGGY IV ×4 (00:25→23:53)
[2019-01-05 00:30] VITALS: BP 149/62; PULSE 75; RESP 19; TEMP 36; O2SAT 96
[2019-01-05] MEDS: LACTATED RINGERS 1,000 ML 100 ML IV (04:22)
[2019-01-05 04:25] VITALS: BP 115/52; PULSE 62; RESP 18; TEMP 36.7; O2SAT 97
[2019-01-05 05:04] LABS: Add Manual Diff / Slide Review NO; Basophils Absolute Auto 0 /uL (0-100); Basophils Percent Auto 0.1 % (0-2); Eosinophils Absolute Auto 200 /uL (0-450); Eosinophils Percent Auto 4.5 % (2-4); Hemoglobin 10.8 g/dL (12.0-16.0); Lymphocytes Absolute Auto 1400 /uL (1100-4500); Mean Corpuscular HGB Conc 33.8 % (30-36); Mean Corpuscular Hemoglobin 29.6 PG (26-34); Mean Corpuscular Volume 87.5 fL (80-100); Monocytes Absolute Auto 200 /uL (0-900); Monocytes Percent Auto 5.2 % (3-14); Neutrophils Absolute Auto 2800 /uL (1500-7000); Neutrophils Percent Auto 59.2 % (50-75); Platelet Count 140 X10^3/uL (150-400); Red Blood Cell Count 3.65 X10^6/uL (4.0-5.2); Red Cell Distribution Width 13.2 % (11.6-14.8); White Blood Cell Count 4.7 X10^3/uL (4.5-11.0)
[2019-01-05 05:14] LABS: Alanine Aminotransferase 23 IU/L (9-52); Albumin 2.4 g/dL (3.5-5.0); Albumin Globulin Ratio 0.9 (1.0-2.8); Alkaline Phosphatase 76 U/L (38-126); Aspartate Aminotransferase 16 IU/L (14-36); Bilirubin Total 0.4 mg/dL (0.2-1.3); Blood Urea Nitrogen 13 mg/dL (7-17); Calcium 7.8 mg/dL (8.4-10.2); Carbon Dioxide 19 mmol/L (22-32); Chloride 102 mmol/L (98-107); Estimated Glomerular Filt Rate > 60.0 mL/min (>60); Globulin 2.7 g/dL (1.7-4.1); Glucose 206 mg/dL (80-110); HEMOLYSIS < 15 (0-50); Magnesium 1.7 mg/dL (1.6-2.3); Potassium 3.8 mmol/L (3.4-5.1); Sodium 130 mmol/L (137-145); Total Protein 5.1 g/dL (6.3-8.2)
[2019-01-05 05:17] LABS: Vancomycin Trough 14.7 ug/mL (10-20)
[2019-01-05] MEDS: VANCOMYCIN TROUGH 1 REQUEST MISC (05:32)
[2019-01-05] MEDS: VANCOMYCIN 1,500 MG/300 ML FROZ.PIGGY 200 MG IV (05:37)
[2019-01-05 05:41] LABS: Procalcitonin 5.89 ng/mL (<0.5)
[2019-01-05] MEDS: HEPARIN 5,000 UNIT/ML VIAL 5000 UNIT SUBCUT ×3 (06:11→20:44)
[2019-01-05] MEDS: LEVOTHYROXINE 112 MCG TABLET PO (06:11)
[2019-01-05 07:20] VITALS: BP 122/59; PULSE 69; RESP 18; TEMP 37.2; O2SAT 94
--- NOTE | 2019-01-05 07:38 | PM.PN.1 ---
Subjective Date Patient Seen: 01/05/19 Interval history: Alissa Kirby is a 68-year-old female patient with a past medical history significant for diabetes mellitus type 1, hyperlipidemia, hypothyroidism, meningioma, Sjogren syndrome, fibromyalgia, venous stasis dermatitis who presented for abrupt onset abdominal pain with nausea and vomiting. The patient is resting in bed comfortably but looks mildly uncomfortable. She endorses nausea after taking PO pain medication with only a couple bites of yogurt. Surgery plans to advance diet as tolerated. She has no other complaints and denies headache, chest pain, shortness of breath, fever, chills, diarrhea or constipation. She endorses mild abdominal pain in RUQ related to surgery but mostly with movement. She has a Bah catheter in place with good urine output. She has not yet had a BM since admission. Encouraged her to get up and ambulate with PT today. Exam Vital Signs (past 8 hours): - 01/05/19 00:30 01/05/19 04:25 01/05/19 07:20 Temperature 96.8 F L 98.1 F 99 F Pulse Rate 75 62 69 Respiratory Rate 19 18 18 Blood Pressure 149/62 H 115/52 L 122/59 L Pulse Oximetry 96 97 94 Oxygen Delivery Method Room Air Oxygen Flow Rate 1 Narrative Exam Narrative: General: Older female sitting in bedside chair, in no acute distress, somnolent but easily arousable, appropriately interactive. HEENT: Normocephalic, atraumatic. External ears without defect. Pupils equal, round, and reactive to light. Anicteric sclerae, moist conjunctivae, and no lid lag. Neck: Supple with full range of motion. No lymphadenopathy or thyromegaly. Cardiovascular: Regular rate and rhythm without murmurs, rubs, or gallops appreciated. Pulmonary: Clear to auscultation bilaterally without crackles, wheezes, or rhonchi. Normal respiratory effort with no use of accessory muscles. Abdomen: Soft, mild tenderness in right upper quadrant, bowel sounds present, nondistended. Laparoscopic insertion sites with bandages in place C/D/I. Right groin with wound vac in place draining serous fluid. Extremities: No clubbing, cyanosis, or edema. Mild stasis dermatitis on bilateral lower extremities. Skin: Normal temperature, turgor, and texture; no rash, ulcers, or subcutaneous nodules appreciated. Neurological: Cranial nerves grossly intact. Psychiatric: Somnolent but easily arousable. Appears alert and oriented to person, place, and time. Objective Labs Result Diagrams: 01/05/19 04:45 01/05/19 04:45 Labs: Laboratory Results - last 24 hr 01/04/19 01/04/19 01/04/19 08:15 08:15 08:15 WBC 5.6 RBC 3.63 L Hgb 10.7 L Hct 31.9 L MCV 87.8 MCH 29.6 MCHC 33.7 RDW 13.1 Plt Count 130 L Neut % (Auto) 66.9 Lymph % (Auto) 21.8 L [place] % (Auto) 5.4 Eos % (Auto) 5.9 H Baso % (Auto) 0.0 Neut # (Auto) 3800 Lymph # (Auto) 1200 [place] # (Auto) 300 Eos # (Auto) 300 Baso # (Auto) 0 Sodium 132 L Potassium 3.8 Chloride 103 Carbon Dioxide 25 BUN 16 Creatinine 0.50 L Estimated GFR > 60.0 BUN/Creatinine Ratio 32.0 H Glucose 142 H Calcium 7.8 L Magnesium 1.6 Total Bilirubin 0.4 AST 25 ALT 30 Alkaline Phosphatase 84 Total Protein 5.1 L Albumin 2.4 L Globulin 2.7 Albumin/Globulin Ratio 0.9 L Procalcitonin 9.56 H Vancomycin Trough 01/05/19 01/05/19 01/05/19 04:45 04:45 04:45 WBC 4.7 RBC 3.65 L Hgb 10.8 L Hct 32.0 L MCV 87.5 MCH 29.6 MCHC 33.8 RDW 13.2 Plt Count 140 L Neut % (Auto) 59.2 Lymph % (Auto) 31.0 [place] % (Auto) 5.2 Eos % (Auto) 4.5 H Baso % (Auto) 0.1 Neut # (Auto) 2800 Lymph # (Auto) 1400 [place] # (Auto) 200 Eos # (Auto) 200 Baso # (Auto) 0 Sodium 130 L Potassium 3.8 Chloride 102 Carbon Dioxide 19 L BUN 13 Creatinine 0.50 L Estimated GFR > 60.0 BUN/Creatinine Ratio 26.0 H Glucose 206 H Calcium 7.8 L Magnesium 1.7 Total Bilirubin 0.4 AST 16 ALT 23 Alkaline Phosphatase 76 Total Protein 5.1 L Albumin 2.4 L Globulin 2.7 Albumin/Globulin Ratio 0.9 L Procalcitonin 5.89 H Vancomycin Trough 01/05/19 04:45 WBC RBC Hgb Hct MCV MCH MCHC RDW Plt Count Neut % (Auto) Lymph % (Auto) [place] % (Auto) Eos % (Auto) Baso % (Auto) Neut # (Auto) Lymph # (Auto) [place] # (Auto) Eos # (Auto) Baso # (Auto) Sodium Potassium Chloride Carbon Dioxide BUN Creatinine Estimated GFR BUN/Creatinine Ratio Glucose Calcium Magnesium Total Bilirubin AST ALT Alkaline Phosphatase Total Protein Albumin Globulin Albumin/Globulin Ratio Procalcitonin Vancomycin Trough 14.7 Assessment & Plan Assessment & Plan narrative: Alissa Kirby is a 68-year-old female patient with a past medical history significant for diabetes mellitus type 1, hyperlipidemia, hypothyroidism, meningioma, Sjogren syndrome, fibromyalgia, venous stasis dermatitis who presented for abrupt onset abdominal pain with nausea and vomiting. 1. Acute severe sepsis, present on admission. Resolved. -Sepsis criteria met including: Febrile (Temp 103F), leukopenia (WBC 2.2), hypotensive (BP 87/43) with lactic acidosis of 2.9 with source thought to be cholecystitis. -Early goal-directed therapy med including: Broad-spectrum antibiotics with vancomycin and Zosyn, as well as, IV fluid resuscitation. Continued to bolus as needed for blood pressure support. Placed order for PICC line. 2. Acute cholangitis, status post cholecystectomy and IOC, present on admission. Resolved. -Patient is immunosuppressed with long-term antibiotic use and type 1 diabetes. -Discontinued vancomycin. Continue Zosyn 3.375 g every 8 hours for continue broad-spectrum coverage. Patient's seroma wound previously growing stenotrophomonas sensitive to levofloxacin and Bactrim. -Discontinue LR 100 mL/hr as the patient was starting to develop upper extremity edema. -Blood cultures x2 have no growth to date. -UA clean and without infection. Placed Bah catheter for comfort. -WBC 5.6 and stable. Procalcitonin peaked at 21.43 and now trending down at 9.56. Continue to trend daily. -CT abdomen and pelvis with contrast demonstrated 7.9 x 5.7 x 5.4 cm fluid collection in the right groin which could represent postsurgical seroma and prominence of the gallbladder and gallbladder wall is massively changed compared to previous exam. -General surgery, Dr. Bradley, was consulted and performed cholecystectomy with intraoperative cholangiogram and clearance of cystic and CBD duct. Continue postoperative management per surgery. Advance diet as tolerated. 3. Acute right groin seroma, status post I&D with wound VAC in place, secondary to previous enlarged lymph node removal, present on admission. Active. -Patient recently had an enlarged lymph node removed then developed a seroma. Lymph node pathology was benign. Wound culture after developing seroma grew stenotrophomonas sensitive to Bactrim and levofloxacin. -Now status post I&D of seroma pocket with wound VAC in place. Wound culture preliminarily has no growth. Continue medical management with broad-spectrum antibiotics as above. 4. Chronic left leg cellulitis, present on admission. Active. -Presented with warmth and mild redness of bilateral lower extremities L>R that appears to be stasis dermatitis with possible early cellulitis of left leg. -Continue medical management with broad-spectrum antibiotics as above. 5. Diabetes mellitus type 1, chronic, present on admission. Stable. -Hemoglobin A1c 8.7%. -Patient reports highly variable blood sugars. Her sister's report noncompliance with diet with patient frequently eating candy bars. -Patient with no evidence of nephropathy, retinopathy or neuropathy, however, she does have fibromyalgia. -Held Lantus initially as the patient was mildly hypoglycemic due to no PO intake. Restarted Lantus at half normal dose 15 units daily at bedtime. -Continue [facility] blood glucose checks and low-dose correctional scale insulin. -Ordered dietitian consult. 6. Fibromyalgia and chronic pain, opiate dependent, present on admission. Stable. -Patient with history of fibromyalgia and spinal stenosis. -Restarted home morphine ER 15 mg every 8 hours and will titrate up as needed. Ordered morphine 2 mg IV every 4 hours as needed for breakthrough. 7. Depression, chronic, present on admission. Stable. -Patient recently lost both her daughter and mother but without overt symptoms of depression. -Restart bupropion 150 mg extended release daily and Lexapro 40 mg daily tomorrow. 8. ADD, chronic, present on admission. Stable. -Restart Adderall 30 mg 3 times daily tomorrow. 9. Hyperlipidemia, chronic, present on admission. Stable. -restart atorvastatin 20 mg daily tomorrow. 10. Hypothyroidism, chronic, present on admission. Stable. -Continue levothyroxine 112 mg daily. 11. Gastroesophageal reflux disorder, chronic, present on admission. Stable. -Continue PPI. Disposition: Patient likely to discharge home and several days after she has recovered from acute cholecystectomy and I&D of seroma.
--- NOTE | 2019-01-05 08:05 | CM.DPC ---
DCP Cont: Per MD, pt making medical progress and not quite stable for d/c yet today but likely another couple days. Per RN, pt had wound vac placed with minimal output and currently on 1L of oxygen. Plan: SW to continue to follow to determine if plan of home at d/c is still reasonable when closer to d/c. SW to follow for any further identified needs. LAURIE Reyna
[2019-01-05] MEDS: MORPHINE IR 15 MG TABLET PO (08:26)
[2019-01-05] MEDS: INSULIN ASPART 100 UNIT/ML INSULN PEN SUBCUT ×4 (08:28→20:42)
[2019-01-05] MEDS: LACTOBACILLUS ACIDOPHILUS TABLET 1 EACH PO ×3 (08:31→17:20)
[2019-01-05] MEDS: LISINOPRIL 5 MG TABLET 2.5 MG PO (08:33)
[2019-01-05] MEDS: ESCITALOPRAM 10 MG TABLET 40 MG PO (08:33)
[2019-01-05] MEDS: METHOCARBAMOL 500 MG TABLET PO ×4 (08:35→20:44)
[2019-01-05] MEDS: PANTOPRAZOLE 40 MG VIAL 20 MG IV (08:37)
[2019-01-05] MEDS: ONDANSETRON 4 MG/2 ML INJ IV (09:07)
[2019-01-05 11:30] VITALS: BP 121/54; PULSE 65; RESP 17; TEMP 36.3; O2SAT 94
[2019-01-05] MEDS: MORPHINE 2 MG/ML INJ IV ×2 (13:00→23:53)
[2019-01-05] MEDS: MORPHINE ER 15 MG TABLET PO ×2 (14:33→22:25)
--- NOTE | 2019-01-05 14:38 | DIET.PN ---
Visited pt today. No appetite; eating poorly. States she's had DM diet education before, just has difficulty following r/t a big sweet tooth. Dx: post op wound infection, DM1 Diet: Full liquid Assessment: Does not appear to be a good time for DM ed. Providing adequate nutrition to promote wound healing is priority. Intervention: Provided brief review of carb foods; effect on bg and need for high protein diet for wound healing. Plan: Adding Ensure Enlive BID to meals (very high david, very high protein - also high carb: 44g/8oz). When Po intake improves may consider Glucerna as supplement, depending on bg control. Adding beneprotein to food items.
--- NOTE | 2019-01-05 15:20 | PM.PN.1 ---
Subjective Date Patient Seen: 01/05/19 Time Patient Seen: 08:00 Interval history: doing well post op, minimal abdominal pain, tolerating diet Exam Vital Signs (past 8 hours): - 01/05/19 11:30 Temperature 97.4 F L Pulse Rate 65 Respiratory Rate 17 Blood Pressure 121/54 L Pulse Oximetry 94 Oxygen Delivery Method Room Air Oxygen Flow Rate 1 Narrative Exam Narrative: NAD abd soft nontender non distende Wounds CDI wound vac in place draining serrous material Objective Labs Result Diagrams: 01/05/19 04:45 01/05/19 04:45 Labs: Laboratory Results - last 24 hr 01/05/19 01/05/19 01/05/19 04:45 04:45 04:45 WBC 4.7 RBC 3.65 L Hgb 10.8 L Hct 32.0 L MCV 87.5 MCH 29.6 MCHC 33.8 RDW 13.2 Plt Count 140 L Neut % (Auto) 59.2 Lymph % (Auto) 31.0 [place] % (Auto) 5.2 Eos % (Auto) 4.5 H Baso % (Auto) 0.1 Neut # (Auto) 2800 Lymph # (Auto) 1400 [place] # (Auto) 200 Eos # (Auto) 200 Baso # (Auto) 0 Sodium 130 L Potassium 3.8 Chloride 102 Carbon Dioxide 19 L BUN 13 Creatinine 0.50 L Estimated GFR > 60.0 BUN/Creatinine Ratio 26.0 H Glucose 206 H Calcium 7.8 L Magnesium 1.7 Total Bilirubin 0.4 AST 16 ALT 23 Alkaline Phosphatase 76 Total Protein 5.1 L Albumin 2.4 L Globulin 2.7 Albumin/Globulin Ratio 0.9 L Procalcitonin 5.89 H Vancomycin Trough 01/05/19 04:45 WBC RBC Hgb Hct MCV MCH MCHC RDW Plt Count Neut % (Auto) Lymph % (Auto) [place] % (Auto) Eos % (Auto) Baso % (Auto) Neut # (Auto) Lymph # (Auto) [place] # (Auto) Eos # (Auto) Baso # (Auto) Sodium Potassium Chloride Carbon Dioxide BUN Creatinine Estimated GFR BUN/Creatinine Ratio Glucose Calcium Magnesium Total Bilirubin AST ALT Alkaline Phosphatase Total Protein Albumin Globulin Albumin/Globulin Ratio Procalcitonin Vancomycin Trough 14.7 Assessment & Plan Assessment & Plan narrative: 68 yo woman with sepsis of biliary source now well 1) S/p lap zoe and IOC OK for general diet Follow up with Dr Bradley 2 weeks post op in clinic, will review pathology then 2) open seroma cavity - MWF wound vac changes per wound care until no longer draining General surgery will sign off
--- NOTE | 2019-01-05 16:18 | PT.IIE ---
Current Diagnoses Sepsis, unspecified organism (01/02/19) Unspecified abdominal pain (01/02/19) Sepsis following a procedure, initial encounter (01/02/19) Surgery Performed Operation Date: 01/03/19 16:00 Actual Procedures p Laparoscopic Cholecystectomy with Intraoperative Cholangiograms - Mitchell Bradley MD s Incision and Drainage Right groin seroma - Mitchell Bradley MD Surgical History (Last Updated 01/03/19 @ 01:15 by KENYA Doty) History of lymph node biopsy (Acute) H/O total hysterectomy (Resolved) Medical History (Last Reviewed 01/03/19 @ 01:14 by KENYA Doty) Fibromyalgia (Acute) Depression (Chronic) Diabetes (Chronic) Fibromyalgia (Chronic) GERD (gastroesophageal reflux disease) (Chronic) Hyperlipidemia (Chronic) Hypothyroidism (Chronic) Meningioma (Chronic) Restless leg syndrome (Chronic) Sjogren's disease (Chronic) Sleep apnea (Chronic) Spinal stenosis, lumbar (Chronic) Venous stasis dermatitis of both lower extremities (Chronic) Physical Therapy Inpatient Evaluation/Re-Eval M1 PT/OT-IP Prior Functional Status Start: 01/05/19 17:48 Freq: NEEDED Status: Active Protocol: Document 01/05/19 16:18 AB (Rec: 01/05/19 17:56 AB [id number]) Medical Review Prior Functional Status Medical History Reviewed Yes Communication able to make needs known Mobility and Gait pt stated that she is modified independent with all mobilities and ambulation without AD Social History Household Members spouse Living Arrangements House Number of Floors (Floors) One Floor Number of Stairs To Enter/Railing? 1 step to enter Home Environment Standard Height Toilet Tub/Shower Home Equipment Lift Recliner Grab Bars In Shower Additional Social History Comment pt sleeps on a lift chair M2 PT-IP Current Condition Start: 01/05/19 17:48 Freq: NEEDED Status: Active Protocol: Document 01/05/19 16:18 AB (Rec: 01/05/19 17:56 AB [id number]) Physical Therapy Current Condition Current Condition Evaluation Date 01/05/19 Treatment Diagnosis sepsis; difficulty in walking Onset Date 01/02/19 Precautions Other Precautions wound vac M3 PT-IP Subjective Start: 01/05/19 17:48 Freq: NEEDED Status: Active Protocol: Document 01/05/19 16:18 AB (Rec: 01/05/19 17:56 AB [id number]) Subjective Physical Therapy Visit Type Type Initial Evaluation Visit Start Time 16:18 Visit Stop Time 16:45 Total Visit Minutes 27 Number of PROGRAM LEAD Visits 0 Physical Therapy Visit Comments Patient Comments pt agreeable to do PT Therapy Pain Assessment Pain When Pain Assessed At Rest Pain Present Pain Present Pain Reported Location Right Upper Abdomen Intensity 4 Scale Used Numeric (1 - 10) Pain Management Techniques Timing of Activity with Medications M4 PT-IP Mobility and Gait Start: 01/05/19 17:48 Freq: NEEDED Status: Active Protocol: Document 01/05/19 16:18 AB (Rec: 01/05/19 17:56 AB [id number]) PT-Transfer Assessment Sit to and From Stand Sit to and from Stand Minimal Assistance 1 Person Assistance Use of Upper Extremities Equipment Transfer Assistive Device Gait Belt Front Wheeled Walker Orthotic/Prosthetic Devices or Brace: No Comments Mobility Comments bed mobility not assessed: pt uses a lift chair to sleep on Gait Assessment Gait Gait Assistance Required: Minimum Assistance Distance (Feet) 2 Able to Maintain Weight Bearing Status Yes During Gait Assistive Devices Assistive Device Gait Belt Front Wheeled Walker Orthotic/Prosthetic Devices or Brace: No Gait Deviations General Gait Pattern Decreased Stride Length Decreased Feet Clearance Factors Limiting Gait Function Factors Limiting Gait Function Decreased Activity Tolerance Decreased Strength Pain Poor Balance PT-Balance Assessment Sitting Balance and Reactions Static Sitting Balance Ability Good Dynamic Sitting Balance Ability Good Standing Balance and Reactions Static Standing Balance Ability Fair Dynamic Standing Balance Ability Fair Device Used FWW M5 PT-IP Objective Assessments Start: 01/05/19 17:48 Freq: NEEDED Status: Active Protocol: Document 01/05/19 16:18 AB (Rec: 01/05/19 17:56 AB [id number]) Orientation Orientation/Cognition Level of Alertness Alert Orientation Name Place Situation Language Function Ability No Deficits Noted Safety Awareness Decreased Safety Awareness Gross Range of Motion Lower Extremity ROM Assessment Within Functional Limits Strength Lower Extremity Strength Assessment Bilaterally Impaired Hip 4-/5 Knee 4-/5 Muscle Tone Muscle Tone WNL Yes M6 PT-IP Treatment Start: 01/05/19 17:48 Freq: NEEDED Status: Active Protocol: Document 01/05/19 16:18 AB (Rec: 01/05/19 17:56 AB [id number]) Physical Therapy Treatment Education Education Provided Safety M7 PT-IP Assessment and Plan Start: 01/05/19 17:48 Freq: NEEDED Status: Active Protocol: Document 01/05/19 16:18 AB (Rec: 01/05/19 17:56 AB [id number]) PT Summary Assessment and Plan Potential Rehabilitation Potential Good Status of Condition at Evaluation Evolving Summary Impairments Pain ROM Strength Balance Coordination Bed Mobility Transfers Gait Activity Tolerance Assessment Summary pt requiring min A with mobility and unable to tolerate much activity; pt was only able to ambulate ~ 2 ft using FWW and has to sit down. stated that she is tired and weak. pt will require SNF rehab to improve overall strength to progress with functional independence. Goals Transfer Goal Independent Gait Goal Standby Assistance Gait Distance 150 Other Goals up/down 1 step CGA Days to Meet Goals 5 Frequency of Treatment Frequency Of Treatment Once a Day Treatment Plan Physical Therapy Treatment Plan Bed Mobility Training Transfer Training Gait Training Therapeutic Exercise Balance Retraining Discharge Planning Hot or Cold Pack Neuromuscular Re-ed Coordination Retraining Manual Therapy Other Recommendations and Next Treatment ambulation Focus Recommendations To Nursing Amount of Assist Needed 1 Person Assist Discharge Recommendations PT Discharge Recommendations SNF Rehab Equipment Needed for Home Before FWW if pt is going home Discharge
[2019-01-05 16:20] VITALS: BP 120/58; PULSE 60; RESP 16; TEMP 36.8; O2SAT 95
--- NOTE | 2019-01-05 17:42 | PC.NURSE ---
Wound Ostomy Nurse Consult Note Alissa awake in bed trying to eat her lunch but was taking a break. She states she doesn't feel well today and has pain. She is not sick to her stomach, but states she generally doesn't feel well and her incision hurts. I told her I was here to change her [employer] wound vac today. With the help of two nursing students and her nurse I changed her wound vac. We measured and took photos. The right groin surgical wound measures 4.1 x 0.6x 4.6cm. The wound base is beefy red with granulation tissue and no slough. The wound edges are attached without redness or induration. There was approx 100cc of serosanguenous drainage in the canister. I clean the wound with normal saline and pat dry. I placed a drape umer-wound then one long piece of black foam. I also cut one piece of black foam as a button for the track pad. The wound vac is set at 125mmHg continuous. The canister was also changed. Alissa tolerated the procedure well. I also spoke to Alyce from Care Management. She states that Alissa will most likely be going home with a I wound vac. I told Alyce that I would speak to the surgical team to discuss discharge wound management and wound vac care. I would like to follow Alissa at the wound care center to help manage her wound with Dr. Stubbs, Pneumatic Tool Operator of the wound care center and we would also be able to manage her wound vac. If the surgical team would like us here at the wound care center to manage her wound and wound vac care I can place an order for a home vac form the wound clinic and then place this activac on her before discharge. Please note that the wound care center is closed on Thursday, January 11 for the holiday. As per protocol [facility] wound vac should be changed every Thursday, Thursday and Thursday for patient that do not have home health services or or not in a facility. I will follow up with the surgical team and Care Management tomorrow.
[2019-01-05 20:00] VITALS: BP 125/52; PULSE 57; RESP 18; TEMP 36.1; O2SAT 96
[2019-01-05] MEDS: ATORVASTATIN 20 MG TABLET PO (20:38)
[2019-01-05] MEDS: DOCUSATE 100 MG CAPSULE PO (20:39)
[2019-01-05] MEDS: GABAPENTIN 300 MG CAPSULE 900 MG PO (20:40)
[2019-01-05] MEDS: INSULIN GLARGINE 100 UNIT/ML 3ML PEN 15 UNIT SUBCUT (20:43)
[2019-01-05] MEDS: SODIUM CHLORIDE 0.9% FLUSH 10 ML IV (20:44)
[2019-01-06] VITALS (7 sets, daily range): BP systolic 121–141; BP diastolic 45–61; PULSE 59–72; RESP 16–18; TEMP 36.5–37.2; O2SAT 93–98
[2019-01-06] MEDS: LEVOTHYROXINE 112 MCG TABLET PO (05:31)
[2019-01-06] MEDS: HEPARIN 5,000 UNIT/ML VIAL 5000 UNIT SUBCUT ×3 (05:31→21:06)
[2019-01-06] MEDS: MORPHINE ER 15 MG TABLET PO ×3 (05:47→21:08)
[2019-01-06 05:59] LABS: Add Manual Diff / Slide Review NO; Basophils Absolute Auto 0 /uL (0-100); Basophils Percent Auto 0.5 % (0-2); Eosinophils Absolute Auto 200 /uL (0-450); Eosinophils Percent Auto 4.2 % (2-4); Hematocrit 33.4 % (36-46); Hemoglobin 11.2 g/dL (12.0-16.0); Lymphocytes Absolute Auto 1700 /uL (1100-4500); Lymphocytes Percent Auto 38.5 % (25-40); Mean Corpuscular HGB Conc 33.6 % (30-36); Mean Corpuscular Hemoglobin 29.2 PG (26-34); Mean Corpuscular Volume 86.8 fL (80-100); Monocytes Absolute Auto 300 /uL (0-900); Monocytes Percent Auto 6.3 % (3-14); Neutrophils Absolute Auto 2200 /uL (1500-7000); Neutrophils Percent Auto 50.5 % (50-75); Platelet Count 177 X10^3/uL (150-400); Red Blood Cell Count 3.85 X10^6/uL (4.0-5.2); Red Cell Distribution Width 13.1 % (11.6-14.8); White Blood Cell Count 4.4 X10^3/uL (4.5-11.0)
[2019-01-06 06:12] LABS: Alanine Aminotransferase 21 IU/L (9-52); Albumin 2.4 g/dL (3.5-5.0); Albumin Globulin Ratio 0.9 (1.0-2.8); Alkaline Phosphatase 73 U/L (38-126); Aspartate Aminotransferase 12 IU/L (14-36); Bilirubin Total 0.4 mg/dL (0.2-1.3); Blood Urea Nitrogen 10 mg/dL (7-17); Calcium 7.9 mg/dL (8.4-10.2); Carbon Dioxide 20 mmol/L (22-32); Chloride 103 mmol/L (98-107); Estimated Glomerular Filt Rate > 60.0 mL/min (>60); Globulin 2.8 g/dL (1.7-4.1); Glucose 249 mg/dL (80-110); HEMOLYSIS < 15 (0-50); Magnesium 1.7 mg/dL (1.6-2.3); Potassium 3.6 mmol/L (3.4-5.1); Sodium 134 mmol/L (137-145); Total Protein 5.2 g/dL (6.3-8.2)
[2019-01-06 06:47] LABS: Procalcitonin 3.61 ng/mL (<0.5)
[2019-01-06] MEDS: SODIUM CHLORIDE 0.9% FLUSH 10 ML IV ×3 (08:37→21:05)
[2019-01-06] MEDS: DOCUSATE 100 MG CAPSULE PO ×2 (08:37→21:00)
[2019-01-06] MEDS: LISINOPRIL 5 MG TABLET 2.5 MG PO (08:37)
[2019-01-06] MEDS: LACTOBACILLUS ACIDOPHILUS TABLET 1 EACH PO ×3 (08:37→16:41)
[2019-01-06] MEDS: METHOCARBAMOL 500 MG TABLET PO ×3 (08:38→21:05)
[2019-01-06] MEDS: ESCITALOPRAM 10 MG TABLET 40 MG PO (08:38)
[2019-01-06] MEDS: INSULIN ASPART 100 UNIT/ML INSULN PEN SUBCUT ×4 (08:39→21:03)
[2019-01-06] MEDS: POLYETHYLENE GLYCOL 3350 17 GM POWD.PACK PO (08:40)
[2019-01-06] MEDS: PIPERACILLIN-TAZO 3.375 GM/50 ML FROZ.PIGGY IV ×3 (08:40→23:38)
[2019-01-06] MEDS: PANTOPRAZOLE 40 MG VIAL 20 MG IV (09:03)
--- NOTE | 2019-01-06 09:53 | PM.PN.1 ---
Subjective Date Patient Seen: 01/06/19 Interval history: Alissa Kirby is a 68-year-old female patient with a past medical history significant for diabetes mellitus type 1, hyperlipidemia, hypothyroidism, meningioma, Sjogren syndrome, fibromyalgia, venous stasis dermatitis who presented for abrupt onset abdominal pain with nausea and vomiting. The patient is resting in bed comfortably but looks mildly uncomfortable. She endorses more abdominal pain especially in right upper quadrant and subjective fever. Objectively patient has been afebrile. On exam, she is diffusely tender especially over liver bed. She also endorses intermittent brief nausea after taking PO pain medications or eating food. Continue to advance diet as tolerated. She reports fatigue likely related to narcotics. Otherwise she has no complaints, and denies headache, chest pain, shortness of breath, fever, chills, diarrhea or constipation. Plan today is to ambulate patient as much as tolerated, be judicious with narcotics, Lasix 20 mg IV x 1 for mild diuresis and then remove Bah. She has not yet had a BM since admission and a bowel regimen has been implemented. Continue PT/OT. Exam Vital Signs (past 8 hours): - 01/06/19 05:40 01/06/19 07:50 Temperature 98.7 F 99.0 F Pulse Rate 59 L 67 Respiratory Rate 16 16 Blood Pressure 122/45 L 121/51 L Pulse Oximetry 93 94 Oxygen Delivery Method Room Air Oxygen Flow Rate 0 Narrative Exam Narrative: General: Older female sitting in bedside chair, in no acute distress, somnolent but easily arousable, appropriately interactive. HEENT: Normocephalic, atraumatic. External ears without defect. Pupils equal, round, and reactive to light. Anicteric sclerae, moist conjunctivae, and no lid lag. Neck: Supple with full range of motion. No lymphadenopathy or thyromegaly. Cardiovascular: Regular rate and rhythm without murmurs, rubs, or gallops appreciated. Pulmonary: Clear to auscultation bilaterally without crackles, wheezes, or rhonchi. Normal respiratory effort with no use of accessory muscles. Abdomen: Soft, diffusely tender with moderate tenderness to palpation over right upper quadrant, bowel sounds present, non-distended. Laparoscopic insertion sites appear to be healing well. Right groin with wound vac in place draining serous fluid. Extremities: No clubbing, cyanosis, or edema. Mild stasis dermatitis on bilateral lower extremities. Skin: Normal temperature, turgor, and texture; no rash, ulcers, or subcutaneous nodules appreciated. Neurological: Cranial nerves grossly intact. Psychiatric: Somnolent but easily arousable. Appears alert and oriented to person, place, and time. Objective Labs Result Diagrams: 01/06/19 05:30 01/06/19 05:30 Labs: Laboratory Results - last 24 hr 01/06/19 01/06/19 01/06/19 05:30 05:30 05:30 WBC 4.4 L RBC 3.85 L Hgb 11.2 L Hct 33.4 L MCV 86.8 MCH 29.2 MCHC 33.6 RDW 13.1 Plt Count 177 Neut % (Auto) 50.5 Lymph % (Auto) 38.5 [place] % (Auto) 6.3 Eos % (Auto) 4.2 H Baso % (Auto) 0.5 Neut # (Auto) 2200 Lymph # (Auto) 1700 [place] # (Auto) 300 Eos # (Auto) 200 Baso # (Auto) 0 Sodium 134 L Potassium 3.6 Chloride 103 Carbon Dioxide 20 L BUN 10 Creatinine 0.50 L Estimated GFR > 60.0 BUN/Creatinine Ratio 20.0 Glucose 249 H Calcium 7.9 L Magnesium 1.7 Total Bilirubin 0.4 AST 12 L ALT 21 Alkaline Phosphatase 73 Total Protein 5.2 L Albumin 2.4 L Globulin 2.8 Albumin/Globulin Ratio 0.9 L Procalcitonin 3.61 H Assessment & Plan Assessment & Plan narrative: Alissa Kirby is a 68-year-old female patient with a past medical history significant for diabetes mellitus type 1, hyperlipidemia, hypothyroidism, meningioma, Sjogren syndrome, fibromyalgia, venous stasis dermatitis who presented for abrupt onset abdominal pain with nausea and vomiting. 1. Acute severe sepsis, present on admission. Resolved. -Sepsis criteria met including: Febrile (Temp 103F), leukopenia (WBC 2.2), hypotensive (BP 87/43) with lactic acidosis of 2.9 with source thought to be cholecystitis. -Early goal-directed therapy med including: Broad-spectrum antibiotics with vancomycin and Zosyn, as well as, IV fluid resuscitation. Continued to bolus as needed for blood pressure support. Placed order for PICC line. 2. Acute cholangitis, status post cholecystectomy and IOC, present on admission. Resolving. -Patient is immunosuppressed with long-term antibiotic use and type 1 diabetes. -Discontinued vancomycin. Continue Zosyn 3.375 g every 8 hours for continue broad-spectrum coverage. Patient's seroma wound previously growing stenotrophomonas sensitive to levofloxacin and Bactrim. -Discontinue LR 100 mL/hr as the patient was starting to develop upper extremity edema. -Blood cultures x2 have no growth to date. -UA clean and without infection. Placed Bah catheter for comfort. -WBC 5.6 and stable. Procalcitonin peaked at 21.43 and now trending down at 3.61. Continue to trend daily. -CT abdomen and pelvis with contrast demonstrated 7.9 x 5.7 x 5.4 cm fluid collection in the right groin which could represent postsurgical seroma and prominence of the gallbladder and gallbladder wall is massively changed compared to previous exam. -Continue home morphine ER 15 mg every 8 hours and will titrate up as needed. Ordered morphine 2 mg IV every 4 hours as needed for breakthrough. -General surgery, Dr. Bradley, was consulted and performed cholecystectomy with intraoperative cholangiogram and clearance of cystic and CBD duct. Continue postoperative management per surgery. Advance diet as tolerated. 3. Acute right groin seroma, status post I&D with wound VAC in place, secondary to previous enlarged lymph node removal, present on admission. Active. -Patient recently had an enlarged lymph node removed then developed a seroma. Lymph node pathology was benign. Wound culture after developing seroma grew stenotrophomonas sensitive to Bactrim and levofloxacin. -Now status post I&D of seroma pocket with wound VAC in place. Wound culture preliminarily growing staph species. Continue medical management with broad-spectrum antibiotics as above. 4. Chronic left leg cellulitis, present on admission. Active. -Presented with warmth and mild redness of bilateral lower extremities L>R that appears to be stasis dermatitis with possible early cellulitis of left leg. -Continue medical management with broad-spectrum antibiotics as above. 5. Diabetes mellitus type 1, chronic, present on admission. Stable. -Hemoglobin A1c 8.7%. -Patient reports highly variable blood sugars. Her sister's report noncompliance with diet with patient frequently eating candy bars. -Patient with no evidence of nephropathy, retinopathy or neuropathy, however, she does have fibromyalgia. -continue home Lantus 30 units daily at bedtime. -Continue ACHS blood glucose checks and low-dose correctional scale insulin. -Ordered dietitian consult. 6. Fibromyalgia and chronic pain, opiate dependent, present on admission. Stable. -Patient with history of fibromyalgia and spinal stenosis. -Continue home morphine ER 15 mg every 8 hours and will titrate up as needed. Ordered morphine 2 mg IV every 4 hours as needed for breakthrough. 7. Depression, chronic, present on admission. Stable. -Patient recently lost both her daughter and mother but without overt symptoms of depression. -Continue bupropion 150 mg extended release daily and Lexapro 40 mg daily tomorrow. 8. ADD, chronic, present on admission. Stable. -Discontinued Adderall 30 mg 3 times daily at patients request. 9. Hyperlipidemia, chronic, present on admission. Stable. -Continue atorvastatin 20 mg daily tomorrow. 10. Hypothyroidism, chronic, present on admission. Stable. -Continue levothyroxine 112 mg daily. 11. Gastroesophageal reflux disorder, chronic, present on admission. Stable. -Continue PPI. Disposition: Patient likely to discharge home and several days once she has recovered from acute cholecystectomy and I&D of seroma.
--- NOTE | 2019-01-06 10:36 | PT.IPTN ---
Current Diagnoses Sepsis, unspecified organism (01/02/19) Unspecified abdominal pain (01/02/19) Sepsis following a procedure, initial encounter (01/02/19) Surgery Performed Operation Date: 01/03/19 16:00 Actual Procedures p Laparoscopic Cholecystectomy with Intraoperative Cholangiograms - Mitchell Bradley MD s Incision and Drainage Right groin seroma - Mitchell Bradley MD Physical Therapy Treatment Note M2 PT-IP Current Condition Start: 01/05/19 17:48 Freq: NEEDED Status: Active Protocol: Document 01/05/19 16:18 AB (Rec: 01/05/19 17:56 AB [id number]) Physical Therapy Current Condition Current Condition Evaluation Date 01/05/19 Treatment Diagnosis sepsis; difficulty in walking Onset Date 01/02/19 Precautions Other Precautions wound vac M3 PT-IP Subjective Start: 01/05/19 17:48 Freq: NEEDED Status: Active Protocol: Document 01/06/19 10:36 AB (Rec: 01/06/19 11:36 AB [id number]) Subjective Physical Therapy Visit Type Type Treatment Note Visit Start Time 10:36 Visit Stop Time 10:52 Total Visit Minutes 21 Number of CARPET FINISHING SUPERVISOR Visits 0 Physical Therapy Visit Comments Patient Comments pt agreeable to do PT Therapy Pain Assessment Pain When Pain Assessed During Mobility Pain Present Pain Present Pain Reported Location Right Upper Abdomen Intensity 4 Scale Used Numeric (1 - 10) Pain Management Techniques Re-positioning Timing of Activity with Medications M4 PT-IP Mobility and Gait Start: 01/05/19 17:48 Freq: NEEDED Status: Active Protocol: Document 01/06/19 10:36 AB (Rec: 01/06/19 11:36 AB [id number]) PT-Bed Mobility Assessment Rolling Type of Rolling Log Rolling Level of Assist Minimal Assistance Supine to Sit Supine to Sit Moderate Assistance PT-Transfer Assessment Sit to and From Stand Sit to and from Stand Minimal Assistance Use of Upper Extremities Equipment Transfer Assistive Device Bed Rail Front Wheeled Walker Orthotic/Prosthetic Devices or Brace: No Transfers Transfer Destination Chair Transfer Technique pt ambulated using FWW Transfer Ability Level of Assist Minimal Assistance Comments Mobility Comments pt ambulated to the chair ~ 5 ft using FWW min A and cues. pt refused to do more ambulation afterwards. educated pt on importance of mobilizing and agreed to ask nurses to do more ambulation in room later on. M5 PT-IP Objective Assessments Start: 01/05/19 17:48 Freq: NEEDED Status: Active Protocol: Document 01/05/19 16:18 AB (Rec: 01/05/19 17:56 AB [id number]) Orientation Orientation/Cognition Level of Alertness Alert Orientation Name Place Situation Language Function Ability No Deficits Noted Safety Awareness Decreased Safety Awareness Gross Range of Motion Lower Extremity ROM Assessment Within Functional Limits Strength Lower Extremity Strength Assessment Bilaterally Impaired Hip 4-/5 Knee 4-/5 Muscle Tone Muscle Tone WNL Yes M6 PT-IP Treatment Start: 01/05/19 17:48 Freq: NEEDED Status: Active Protocol: Document 01/05/19 16:18 AB (Rec: 01/05/19 17:56 AB [id number]) Physical Therapy Treatment Education Education Provided Safety M7 PT-IP Assessment and Plan Start: 01/05/19 17:48 Freq: NEEDED Status: Active Protocol: Document 01/06/19 10:36 AB (Rec: 01/06/19 11:36 AB [id number]) PT Summary Assessment and Plan Potential Rehabilitation Potential Good Summary Impairments Pain ROM Strength Balance Cognition Bed Mobility Transfers Gait Activity Tolerance Progress Towards Goals Slow Progress due to Activity Tolerance Assessment Summary pt continues to have decrease activity tolerance and unable to ambulate much today. pt will require SNF rehab to improve overall strength and mobility. Goals Bed Mobility Goal Standby Assistance Transfer Goal Independent Gait Goal Standby Assistance Gait Distance 150 Other Goals up/down 1 step CGA Days to Meet Goals 5 Frequency of Treatment Frequency Of Treatment Once a Day Treatment Plan Physical Therapy Treatment Plan Bed Mobility Training Transfer Training Gait Training Therapeutic Exercise Balance Retraining Discharge Planning Hot or Cold Pack Neuromuscular Re-ed Coordination Retraining Manual Therapy Other Recommendations and Next Treatment ambulation Focus Recommendations To Nursing Amount of Assist Needed 1 Person Assist Discharge Recommendations PT Discharge Recommendations SNF Rehab Equipment Needed for Home Before FWW if pt is going home Discharge
[2019-01-06] MEDS: FUROSEMIDE 20 MG/2 ML VIAL IV (11:04)
[2019-01-06] MEDS: ACETAMINOPHEN 325 MG TABLET 975 MG PO (12:05)
--- NOTE | 2019-01-06 13:40 | PC.NURSE ---
Wound Nurse Consult Note Spoke with Dr. Bradley this afternoon regarding [employer]CI wound vac and discharge. He would like patient to be discharged with a [employer]CI wound vac and he would like [facility] for follow up and manage patients wound and wound vac. I also spoke with Ms. Kofi Montenegro's nurse today. Lan states patient has not been moving well today and is very sleepy and feels that patient may not be discharged tomorrow. I have left a message with Care Management and will await a return call to help coordinate care.
--- NOTE | 2019-01-06 13:54 | DIET.PN ---
Appetite continues to be poor. Did drink all Ensure Enlive last night. Reports ate very little other than that. This morning ate oatmeal and still feels full from that at lunchtime. Cbg yesterday: 230's, 259 highest today: 270, 342 @1100 Meds include: Novolog SSI, Lantus Assessment: PO intake inadequate. Blood glucose higher than previous level before lunch today. Doubt food is cause of increased bg as pt ate only 45g of carb at breakfast. Basal insulin just started and may take a few days to see full effect. Intervention: Send 4oz portions of Enlive to spread out in smaller CHO doses; continue to fortify meals with protein.
[2019-01-06] MEDS: BISACODYL 10 MG SUPP PR (14:15)
--- NOTE | 2019-01-06 14:19 | OT.IP.EVAL ---
Current Diagnoses Sepsis, unspecified organism (01/02/19) Unspecified abdominal pain (01/02/19) Sepsis following a procedure, initial encounter (01/02/19) Surgery Performed Operation Date: 01/03/19 16:00 Actual Procedures p Laparoscopic Cholecystectomy with Intraoperative Cholangiograms - Mitchell Bradley MD s Incision and Drainage Right groin seroma - Mitchell Bradley MD Past Medical History (Last Reviewed 01/03/19 @ 01:14 by KENYA Doty) Fibromyalgia (Acute) Depression (Chronic) Diabetes (Chronic) Fibromyalgia (Chronic) GERD (gastroesophageal reflux disease) (Chronic) Hyperlipidemia (Chronic) Hypothyroidism (Chronic) Meningioma (Chronic) Restless leg syndrome (Chronic) Sjogren's disease (Chronic) Sleep apnea (Chronic) Spinal stenosis, lumbar (Chronic) Venous stasis dermatitis of both lower extremities (Chronic) Surgical History (Last Updated 01/03/19 @ 01:15 by KENYA Doty) History of lymph node biopsy (Acute) H/O total hysterectomy (Resolved) Occupational Therapy Inpatient Evaluation/Re-Eval M1 PT/OT-IP Prior Functional Status Start: 01/05/19 17:48 Freq: NEEDED Status: Active Protocol: Document 01/06/19 14:19 PJ (Rec: 01/06/19 14:56 PJ [id number]) Medical Review Prior Functional Status Medical History Reviewed Yes Diet/Fluid Consistency Regular Communication WNL Mobility and Gait Pt stated that she is independent with all mobility and ambulated without AD. Activities of Daily Living and IADL's Pt states she was independent with all self care including standing shower in tub shower combo. She prefers to have help with shower, but has had no one to assist her for past 6 months since her daughter . Pt states she does almost all the cooking at home and her laundry. Her does all shopping. and nephew do all the cleaning. Pt drives when feeling well but states she doesn't go out much. Prior Functional Level (Other details) is retired and nephew does not work. Social History Household Members spouse family (nephew) Living Arrangements House Number of Floors (Floors) One Floor Number of Stairs To Enter/Railing? One 6 step to enter, no rail Home Environment Standard Height Toilet Tub/Shower Home Equipment Lift Recliner Grab Bars In Shower Employment Status Retired Additional Social History Comment Pt lives with and nephew. She sleeps in a lift chair due to fibromyalgia discomfort. Pt does not use lift feature of chair to arise . M2 OT-IP Current Condition Start: 01/06/19 14:31 Freq: Status: Active Protocol: Document 01/06/19 14:19 PJM (Rec: 01/06/19 14:56 PJ [id number]) Occupational Therapy Current Condition Current Condition Evaluation Date 01/06/19 Treatment Diagnosis decreased self care, mobility w/dx of sepsis, s/p lap zoe, I&D R groin Diagnosis Onset Date 01/03/19 Post Operative Precautions Other Precautions laparoscopic abdominal sx, R groin wound vac M3 OT- IP Subjective and Pain Start: 01/06/19 14:31 Freq: Status: Active Protocol: Document 01/06/19 14:19 PJM (Rec: 01/06/19 14:56 PJ [id number]) OT- Subjective Occupational Therapy Visit Type Type Initial Evaluation Visit Start Time 13:38 Visit Stop Time 14:19 Total Visit Minutes 41 Occupational Therapy Visit Comments Patient Comments I don't think I am strong enough to go home. I can't walk or take care of myself. Patient/Caregiver Goals to get stronger, to go home, be able to cook OT Pain Assessment Pain When Pain Assessed After Treatment Pain Present Pain Present Pain Reported Location Right Upper Abdomen Intensity 8 Description Aching Acute M4 OT- IP ADL's Start: 01/06/19 14:31 Freq: Status: Active Protocol: Document 01/06/19 14:19 PJ (Rec: 01/06/19 14:56 [facility] [id number]) OT HAY-Zuvq-[place] General Evaluation Self-Feeding Ability Independent OT ADL-Grooming General Evaluation Grooming Ability Standby Assistance Areas Needing Assistance Face Washing Comments OT Grooming Comments after set up in chair OT ADL-Oral Care General Eval Oral Care Ability Standby Assistance Devices Oral Care Devices Toothbrush Comments Oral Care Comments after set up in chair OT ADL-Dressing General Eval Upper Body Dressing Ability Standby Assistance Lower Body Dressing Ability Maximum Assistance Areas Needing Assistance Underpants/Brief Pants/Shorts Socks Shoes Comments OT Dressing Comments Pt unable to reach feet due to abdominal pain; provided education re: use of hearing aid dispenser, sock aid, stocking babar as pt supposed to be wearing compression hose daily, pt wears slip on sandals OT ADL-Toileting Comments OT Toileting Comments did not occur this session; wood removed just prior to this session OT ADL-Bathing Comments OT Bathing Comments to be assessed as activity tolerance improves M5 OT- IP IADL's Start: 01/06/19 14:31 Freq: Status: Active Protocol: Document 01/06/19 14:19 PJM (Rec: 01/06/19 14:56 [facility] [id number]) OT-Instrumental Activities of Daily Living Deficits IADL Deficits Identified Deficits Home Safety Awareness Awareness of Need for Assistance at Home Good Awareness Ability to Problem Solve Emergency Able to Problem Solve Situations Medication Management Medication Management No Deficits Identified Money Management Money Management No Deficits Identified Meal Preparation Meal Preparation Comments Pt lacks sufficient endurance or standing tolerance to do any meal prep at present [employer]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 family assists with coat fitter, except she does her own laundry, pt currently lacks sufficient endurance/ mobility needed for coat fitter Driving Driving Comments family can assist until pt able M6 OT- IP Functional Cognition Start: 01/06/19 14:31 Freq: Status: Active Protocol: Document 01/06/19 14:19 PJM (Rec: 01/06/19 14:56 [facility] [id number]) Cognitive Factors Limiting Selfcare Function Cognitive Ability Level of Alertness Alert Patient Orientation Name Month Date Year Place Situation Attention Span Ability Capable of Focused Attention Capable of Sustained Attention Ability to Follow Commands Able to Follow One Step Commands Cognitive Comments Cognitive Assessment Comments Pt requesting to have information written down for her re: recommended home equipment. Pt alert oriented and asking appropriate questions about adapted ADLS this session. OT- Vision and Hearing OT- Hearing Assessment OT- Hearing Assessment WFL OT- Vision Assessment Visual Acuity WFL Glasses For Reading Vision Assessment Comments Pt s/p cataract sx, denies any recent vision changes M7 OT- IP Mobility and Balance Start: 01/06/19 14:31 Freq: Status: Active Protocol: Document 01/06/19 14:19 PJM (Rec: 01/06/19 14:56 [facility] [id number]) OT- Bed Mobility Assessment Rolling Level of Assistance Standby Assistance Sit to Supine Sit to Supine Assist Minimal Assistance Scooting Scooting to Edge of Bed Standby Assistance OT-Transfer Assessment Sit to and From Stand Sit to and from Stand Minimal Assistance Transfers Transfer Ability Standby Assistance Technique Transfer Destination Chair Transfer Technique Stand Step Pivot Devices Transfer Assistive Devices Gait Belt Front Wheeled Walker Comments Mobility Comments min assist from low chair when fatigued OT- Gait Assessment Comments Gait Ability Comments see P.T. notes OT- Balance Assessment Sitting Balance and Reactions Static Sitting Balance Ability Good Standing Balance and Reactions Static Standing Balance Ability Good Comments Other Balance Tests/Deviations/Treatment with FWW : M8 OT- IP Objective Assessments Start: 01/06/19 14:31 Freq: Status: Active Protocol: Document 01/06/19 14:19 PJM (Rec: 01/06/19 14:56 PJ [id number]) OT Gross Range of Motion Upper Extremity Range of Motion Assessment Within Functional Limits OT Strength Upper Extremity Strength Assessment Within Functional Limits OT- Coordination Assessment Comments Coordination Comments BUE WFL OT-Muscle Tone Assessment Muscle Tone WNL Yes OT Sensation Assessment Comments Summary Comments pt denies deficits Edema Edema Absent M9 OT- IP Assessment and Plan Start: 01/06/19 14:31 Freq: Status: Active Protocol: Document 01/06/19 14:19 PJM (Rec: 01/06/19 14:56 PJ [id number]) OT Summary Assessment and Plan Potential Rehabilitation Potential Good Analytic Complexity at Evaluation Low Summary OT Impairments Pain Strength Balance Functional Mobility Grooming Dressing Toileting Bathing Toilet Transfers Shower Transfers Assessment Summary Pt is a 68 yr old female admitted with sepsis, now s/p lap zoe and I&D of R groin seroma which was not healing well after recent biopsy. Pt now has wound vac in place in R groin. Pt has multiple co-morbidities that affect healing. See H& P for further details. Pt currently has significant performance deficits in activity tolerance and has only walked 5 ft with P.T. She has deficits in all functional mobility/transfers, standing tolerance for grooming and IADL tasks such as meal prep, lower body dressing, bathing and toileting. Pt is far below her baseline level of function which is independent with all self care, standing shower, meal prep for family and laundry. Recommend SNF at d/c for further subacute rehab prior to return home. Goals Grooming Goal Standby Assistance Dressing Goal Standby Assistance Housekeeping Assistant Sock Aid Toileting Goal Independent Bathing Goal Standby Assistance Grab Bars Hand Held Shower Sprayer Long Handled Sponge or [place] Toilet Transfer Goal Standby Assistance Shower Transfer Goal Standby Assistance Tub/Shower Combination Patient/Caregiver Education Goal Demonstrate Post-Op Precautions Demonstrate Energy Conservation and Pacing Caregiver Independent Assisting Patient OT-Other Goals Grooming to be done standing at sink 5 min with no loss of balance. Days to Meet Goals 5 Frequency of Treatment Frequency Of Treatment Once a Day Treatment Plan OT Treatment Plan ADL Training Functional Mobility Patient/Family Education Discharge Planning Discharge Recommendations OT Discharge Recommendations Home with Assistance Home Equipment Needs hearing aid dispenser, stocking babar, tub seat, long bath sponge, hand held shower hose
--- NOTE | 2019-01-06 15:10 | PC.NURSE ---
Wound Consult Note Spoke with Kate, Care Management about patients need for [employer] wound vac and [facility] follow up. I placed an order on [employer] for an Activac for home use. I propose that once this is approved then it can be placed on Thursday in house by me and then the patient can come down to the wound care center on Thursday for a wound care visit. Since per protocol the [employer] wound vac's are usually changed every this would keep her on the this schedule OR she can be discharge home with Home Health, and they can change her [employer] wound vac on Thursday and we could put her on a Thursday, , Thursday schedule, having Home Health change the dressing over the weekends. I have also informed the [employer] rep, Jennifer Brown to look for the Activac order.
[2019-01-06] MEDS: ATORVASTATIN 20 MG TABLET PO (21:01)
[2019-01-06] MEDS: GABAPENTIN 300 MG CAPSULE 900 MG PO (21:01)
[2019-01-06] MEDS: INSULIN GLARGINE 100 UNIT/ML 3ML PEN 30 UNIT SUBCUT (21:04)
[2019-01-06] MEDS: MORPHINE 2 MG/ML INJ IV (23:01)
[2019-01-07 05:32] VITALS: BP 127/47; PULSE 61; RESP 18; TEMP 36.7; O2SAT 95
[2019-01-07] MEDS: HEPARIN 5,000 UNIT/ML VIAL 5000 UNIT SUBCUT ×3 (05:34→21:44)
[2019-01-07] MEDS: LEVOTHYROXINE 112 MCG TABLET PO (05:34)
[2019-01-07] MEDS: MORPHINE ER 15 MG TABLET PO ×3 (05:35→21:43)
[2019-01-07 06:23] LABS: Add Manual Diff / Slide Review NO; Basophils Absolute Auto 0 /uL (0-100); Basophils Percent Auto 0.2 % (0-2); Eosinophils Absolute Auto 200 /uL (0-450); Eosinophils Percent Auto 3.9 % (2-4); Hematocrit 33.4 % (36-46); Hemoglobin 11.3 g/dL (12.0-16.0); Lymphocytes Absolute Auto 1800 /uL (1100-4500); Mean Corpuscular Hemoglobin 29.1 PG (26-34); Mean Corpuscular Volume 85.6 fL (80-100); Monocytes Absolute Auto 400 /uL (0-900); Monocytes Percent Auto 8.7 % (3-14); Neutrophils Absolute Auto 1700 /uL (1500-7000); Neutrophils Percent Auto 42.2 % (50-75); Platelet Count 194 X10^3/uL (150-400); Red Cell Distribution Width 13.1 % (11.6-14.8); White Blood Cell Count 4.1 X10^3/uL (4.5-11.0)
[2019-01-07 06:24] LABS: Blood Urea Nitrogen 8 mg/dL (7-17); Calcium 8.1 mg/dL (8.4-10.2); Carbon Dioxide 24 mmol/L (22-32); Chloride 101 mmol/L (98-107); Estimated Glomerular Filt Rate > 60.0 mL/min (>60); Glucose 214 mg/dL (80-110); HEMOLYSIS < 15 (0-50); Magnesium 1.8 mg/dL (1.6-2.3); Potassium 3.1 mmol/L (3.4-5.1); Sodium 133 mmol/L (137-145)
[2019-01-07 06:48] LABS: Procalcitonin 1.85 ng/mL (<0.5)
--- NOTE | 2019-01-07 07:50 | PM.PN.1 ---
Subjective Date Patient Seen: 01/07/19 Time Patient Seen: 07:51 Interval history: Follow-up on Severe sepsis due to acute cholecystitis/Cholangitis, status post cholecystectomy and IOC. Patient seen at bedside. She is doing well this morning. Her appetite is back, and pension would like to eat something. She denies any nausea or vomiting. Patient is afebrile. She still completing use to have right upper quadrant and epigastric tenderness and discomfort, but states it is improving as opposed to yesterday. Patient is ambulating with physical therapy. She is also passing gas, but has not had a bowel movement. Exam Vital Signs (past 8 hours): - 01/07/19 05:32 Temperature 98.0 F Pulse Rate 61 Respiratory Rate 18 Blood Pressure 127/47 L Pulse Oximetry 95 Oxygen Delivery Method Room Air Oxygen Flow Rate 0 Narrative Exam Narrative: General: No acute distress, AAO x3, lying comfortably in bed HEENT: Normocephalic, atraumatic, PERRLA and EOMI bilaterally Neck: Supple, no lymphadenopathy Cardiovascular: Regular rate rhythm, no murmurs or gallops Respiratory: Clear to auscultation bilaterally, no wheezes or crackles GI: Positive bowel sounds in all 4 quadrants, diffuse tenderness in the right upper quadrant as well as epigastric region. No guarding. Laparoscopic incision wounds present, healing well : Right groin wound VAC in place, draining serous fluid Extremities: No clubbing, cyanosis, or edema. Persistent mild stasis dermatitis in lower extremities bilaterally Skin: Stasis dermatitis as above. Otherwise, no bruising or other lesions Neuro: No focal deficits, AAO x3 Psychiatric: Mood is appropriate, patient is able to make her own decisions Objective Labs Result Diagrams: 01/07/19 05:30 01/07/19 05:30 Labs: Laboratory Results - last 24 hr 01/07/19 01/07/19 01/07/19 05:30 05:30 05:30 WBC 4.1 L RBC 3.90 L Hgb 11.3 L Hct 33.4 L MCV 85.6 MCH 29.1 MCHC 34.0 RDW 13.1 Plt Count 194 Neut % (Auto) 42.2 L Lymph % (Auto) 45.0 H [place] % (Auto) 8.7 Eos % (Auto) 3.9 Baso % (Auto) 0.2 Neut # (Auto) 1700 Lymph # (Auto) 1800 [place] # (Auto) 400 Eos # (Auto) 200 Baso # (Auto) 0 Sodium 133 L Potassium 3.1 L Chloride 101 Carbon Dioxide 24 BUN 8 Creatinine 0.50 L Estimated GFR > 60.0 BUN/Creatinine Ratio 16.0 Glucose 214 H Calcium 8.1 L Magnesium 1.8 Procalcitonin 1.85 H Assessment & Plan Assessment & Plan narrative: 68yo F with PMH of diabetes mellitus type 1, hyperlipidemia, hypothyroidism, meningioma, Sjogren syndrome, fibromyalgia, venous stasis dermatitis who presented with abrupt onset abdominal pain, nausea and vomiting. Was found to be in severe sepsis due to cholecytsitis/cholangitis. Now S/p cholecystectomy and IOS. Sepsis resolved. 1. Acute severe sepsis, present on admission. Resolved. -Patient is no longer febrile and is hemodynamically stable. -WBC now down 4.3, and procalc is porperly trending down to 1.85 -Continue Zosyn at this time but switch to Cipro/Flagyl PO on discharge to complete 10-14day course of therapy -Continue to monitor procalc until normalized 2. Acute cholangitis/cholecystitis, present on admission. Resolving. -status post cholecystectomy and IOC, with resolution of duct obstruction as per surgery. Surgery now signed off -Blood cultures x2 have no growth to date -WBC now stable and procalc continues to trend down -CT abdomen and pelvis with contrast demonstrated 7.9 x 5.7 x 5.4 cm fluid collection in the right groin which could represent postsurgical seroma and prominence of the gallbladder and gallbladder wall is massively changed compared to previous exam. -Continue home morphine ER 15 mg every 8 hours and will titrate up as needed. Ordered morphine 2 mg IV every 4 hours as needed for breakthrough. -Continue Zosyn at this time. Deescalate to Cipro/Flagyl PO once patient is stable for discharge to complete 10-14 day course therapy -Diet as tolerated 3. Acute right groin seroma, secondary to previous enlarged lymph node removal, present on admission. Active, Improving -status post I&D with wound VAC placement -Wound culture PREVIOUSLY, after developing seroma, grew stenotrophomonas sensitive to Bactrim and levofloxacin. HOWEVER, this time around seroma microbiology came back as Staph Epi that is resistant to most of antibicterial regimens -Will start patient on Doxycycline 100mg PO BID x7 days, as cultures are sensitive to it 4. Chronic left leg cellulitis, present on admission. Improving -Continue Zosyn and Doxycycline at this time -Monitor for improvement 5. Diabetes mellitus type 1, chronic, present on admission. Stable. -Hemoglobin A1c 8.7%. -Patient reports highly variable blood sugars. Her sisters report noncompliance with diet with patient frequently eating candy bars. -Patient with no evidence of nephropathy, retinopathy or neuropathy, however, she does have fibromyalgia. -continue home Lantus 30 units daily at bedtime. -Continue ACHS blood glucose checks and low-dose correctional scale insulin. -Ordered dietitian consult. 6. Fibromyalgia and chronic pain, opiate dependent, present on admission. Stable. -Patient with history of fibromyalgia and spinal stenosis. -Continue home morphine ER 15 mg every 8 hours and will titrate up as needed. Ordered morphine 2 mg IV every 4 hours as needed for breakthrough. 7. Depression, chronic, present on admission. Stable. -Patient recently lost both her daughters and mother but without overt symptoms of depression. -Continue bupropion 150 mg extended release daily and Lexapro 40 mg daily tomorrow. 8. ADD, chronic, present on admission. Stable. -Discontinued Adderall 30 mg 3 times daily at patients request. 9. Hyperlipidemia, chronic, present on admission. Stable. -Continue atorvastatin 20 mg daily tomorrow. 10. Hypothyroidism, chronic, present on admission. Stable. -Continue levothyroxine 112 mg daily. 11. Gastroesophageal reflux disorder, chronic, present on admission. Stable. -Continue PPI. Disposition: Patient is improving. Will verify rehab appropriateness, as patient is intereste. Added on Doxy for treatment of staph epi seroma.
[2019-01-07 07:54] VITALS: BP 124/55; PULSE 56; RESP 16; TEMP 36.4; O2SAT 94
[2019-01-07] MEDS: LACTOBACILLUS ACIDOPHILUS TABLET 1 EACH PO ×3 (07:58→16:53)
[2019-01-07] MEDS: DOCUSATE 100 MG CAPSULE PO ×2 (07:59→21:44)
[2019-01-07] MEDS: PIPERACILLIN-TAZO 3.375 GM/50 ML FROZ.PIGGY IV ×2 (07:59→16:51)
[2019-01-07] MEDS: ESCITALOPRAM 10 MG TABLET 40 MG PO (08:00)
[2019-01-07] MEDS: LISINOPRIL 5 MG TABLET 2.5 MG PO (08:00)
[2019-01-07] MEDS: METHOCARBAMOL 500 MG TABLET PO ×4 (08:01→21:44)
[2019-01-07] MEDS: PANTOPRAZOLE 40 MG VIAL 20 MG IV (08:01)
[2019-01-07] MEDS: SODIUM CHLORIDE 0.9% FLUSH 10 ML IV (08:01)
[2019-01-07] MEDS: INSULIN ASPART 100 UNIT/ML INSULN PEN SUBCUT ×4 (08:02→21:42)
[2019-01-07] MEDS: ONDANSETRON 4 MG/2 ML INJ IV (08:15)
[2019-01-07] MEDS: POTASSIUM CHLORIDE 60 MEQ in SODIUM CHLORIDE 0.9% 500 ML 88.333 ML IV (08:21)
--- NOTE | 2019-01-07 09:48 | OT.IP.TRT ---
Current Diagnoses Sepsis, unspecified organism (01/02/19) Unspecified abdominal pain (01/02/19) Sepsis following a procedure, initial encounter (01/02/19) Surgery Performed Operation Date: 01/03/19 16:00 Actual Procedures p Laparoscopic Cholecystectomy with Intraoperative Cholangiograms - Mitchell Bradley MD s Incision and Drainage Right groin seroma - Mitchell Bradley MD Occupational Therapy Treatment Note M2 OT-IP Current Condition Start: 01/06/19 14:31 Freq: Status: Active Protocol: Document 01/06/19 14:19 PJM (Rec: 01/06/19 14:56 PJM [id number]) Occupational Therapy Current Condition Current Condition Evaluation Date 01/06/19 Treatment Diagnosis decreased self care, mobility w/dx of sepsis, s/p lap zoe, I&D R groin Diagnosis Onset Date 01/03/19 Post Operative Precautions Other Precautions laparoscopic abdominal sx, R groin wound vac M3 OT- IP Subjective and Pain Start: 01/06/19 14:31 Freq: Status: Active Protocol: Document 01/07/19 09:48 PJM (Rec: 01/07/19 12:17 PJM [id number]) OT- Subjective Occupational Therapy Visit Type Type Treatment Note Visit Start Time 08:58 Visit Stop Time 09:48 Total Visit Minutes 50 Notes Pt's daughter here for second half of session and reports pt 's spends large majority of time in motor home on property and sleeps in motor home. Nephew sleeps on couch in house but is not helpful to pt. Occupational Therapy Visit Comments Patient Comments I am so tired. Patient/Caregiver Goals to feel better, get some sleep OT Pain Assessment Pain When Pain Assessed After Treatment Pain Present Pain Present Pain Reported FLACC Pain Scale Face No particular expression Legs Normal position; relaxed Activity Quiet, moves easily Cry No cry (awake or asleep) Consolability Reassurable with touch FLACC Total 1 M4 OT- IP ADL's Start: 01/06/19 14:31 Freq: Status: Active Protocol: Document 01/07/19 09:48 PJM (Rec: 01/07/19 12:17 PJM [id number]) OT ENK-Bnpi-Ozzscds General Evaluation Self-Feeding Ability Independent Comments OT Self-Feeding Comments My appetite is back. I am looking forward to my oatmeal. OT ADL-Dressing Comments OT Dressing Comments Provided education to pt's daughter re: stocking babar for compression hose, environmental services associate for lower body dressing. Pt wears slip on sandals. Pt decline to practice LB dressing today due to wanting to eat breakfast. OT ADL-Toileting General Evaluation Toileting Ability Standby Assistance Areas Needing Assistance Perform Perineal Hygiene Devices Toileting Assistive Devices Commode Comments OT Toileting Comments Pt needed much verbal encouragement to attempt umer care after urination as she prefers FAMILY DAY CARE PROVIDER to do this. Pt eventually completed pericare with SBA in standing. Provided education to pt's daughter re : equipt options to make toilet higher at home OT ADL-Bathing Bathing Type Bathing Type Shower Comments OT Bathing Comments pt declines to sponge bath this AM due to fatigue but would like to have hair washed today M7 OT- IP Mobility and Balance Start: 01/06/19 14:31 Freq: Status: Active Protocol: Document 01/07/19 09:48 PJM (Rec: 01/07/19 12:17 PJ [id number]) OT- Bed Mobility Assessment Rolling Type of Rolling Roll to Right Level of Assistance Standby Assistance Supine to Sit Supine to Sit Assist Standby Assistance Scooting Scooting to Edge of Bed Standby Assistance OT-Transfer Assessment Sit to and From Stand Sit to and from Stand Contact Guard Assistance Transfers Transfer Ability Contact Guard Assistance Technique Transfer Destination Bedside Commode Chair Transfer Technique Stand Step Pivot Devices Transfer Assistive Devices Gait Belt Front Wheeled Walker OT- Gait Assessment Gait Gait Assistance Required: Contact Guard Assist Distance (Feet) 3 Assistive Devices Assistive Device Gait Belt Front Wheeled Walker Comments Gait Ability Comments No loss of balance noted diwht sit to stand or ambulation 3 feet from commoe to chair OT- Balance Assessment Sitting Balance and Reactions Static Sitting Balance Ability Good Standing Balance and Reactions Static Standing Balance Ability Good Dynamic Standing Balance Ability Good Comments Other Balance Tests/Deviations/Treatment during umer care M9 OT- IP Assessment and Plan Start: 01/06/19 14:31 Freq: Status: Active Protocol: Document 01/07/19 09:48 PJM (Rec: 01/07/19 12:17 [email or web address] [id number]) OT Summary Assessment and Plan Summary OT Impairments Strength Functional Mobility Dressing Toileting Bathing Toilet Transfers Shower Transfers Progress Towards Goals Slow Progress due to Activity Tolerance Assessment Summary Pt needs much encouragement to increase activity level and participation in basic self care tasks. Per daughter, pt will not have much support from or nephew at home , so pt needs to be independent with household mobility, toilet transfers, self care and light meal prep prior to returning home. Recommend SNF at d/c for further subacute rehab prior to return home. Discharge Recommendations OT Discharge Recommendations SNF Rehab Home Equipment Needs environmental services associate, stocking babar, tub seat, long bath sponge, hand held shower hose, toilet riser
[2019-01-07] MEDS: DOXYCYCLINE HYCLATE 100 MG TABLET PO ×2 (10:22→21:44)
[2019-01-07 11:00] VITALS: BP 134/52; PULSE 57; RESP 16; TEMP 36.5; O2SAT 98
[2019-01-07] MEDS: ACETAMINOPHEN 325 MG TABLET 975 MG PO (11:24)
--- NOTE | 2019-01-07 11:29 | PT.IPTN ---
Current Diagnoses Sepsis, unspecified organism (01/02/19) Unspecified abdominal pain (01/02/19) Sepsis following a procedure, initial encounter (01/02/19) Surgery Performed Operation Date: 01/03/19 16:00 Actual Procedures p Laparoscopic Cholecystectomy with Intraoperative Cholangiograms - Mitchell Bradley MD s Incision and Drainage Right groin seroma - Mitchell Bradley MD Physical Therapy Treatment Note M2 PT-IP Current Condition Start: 01/05/19 17:48 Freq: NEEDED Status: Active Protocol: Document 01/05/19 16:18 AB (Rec: 01/05/19 17:56 AB [id number]) Physical Therapy Current Condition Current Condition Evaluation Date 01/05/19 Treatment Diagnosis sepsis; difficulty in walking Onset Date 01/02/19 Precautions Other Precautions wound vac M3 PT-IP Subjective Start: 01/05/19 17:48 Freq: NEEDED Status: Active Protocol: Document 01/07/19 11:18 SA (Rec: 01/07/19 11:29 SA [id number]) Subjective Physical Therapy Visit Type Type Treatment Note Visit Start Time 10:12 Visit Stop Time 10:40 Total Visit Minutes 28 Notes Pt up in chair with daughter present. Number of SENIOR PHP SOFTWARE DEVELOPER Visits 1 Physical Therapy Visit Comments Patient Comments Agreeable to PT. Therapy Pain Assessment Pain When Pain Assessed During Mobility Pain Present Pain Present Pain Reported Location Right Upper Abdomen Intensity 4 Scale Used Numeric (1 - 10) Pain Management Techniques Re-positioning Timing of Activity with Medications M4 PT-IP Mobility and Gait Start: 01/05/19 17:48 Freq: NEEDED Status: Active Protocol: Document 01/07/19 11:18 SA (Rec: 01/07/19 11:29 SA [id number]) PT-Transfer Assessment Sit to and From Stand Sit to and from Stand Contact Guard Assistance Minimal Assistance 1 Person Assistance Equipment Transfer Assistive Device Gait Belt Front Wheeled Walker Orthotic/Prosthetic Devices or Brace: No Transfers Transfer Destination Chair Transfer Technique Stand Step Pivot Transfer Ability Level of Assist Contact Guard Assistance 1 Person Assistance Comments Mobility Comments Completed sit to stands from chair with Min -A progressing to CGA with cues for technique . Pt moves slowly and gaurded, needs encouragement for optimal participation and tends to be self limiting. Gait Assessment Gait Gait Assistance Required: Contact Guard Assist 1 Person Assist Distance (Feet) 10 Able to Maintain Weight Bearing Status Yes During Gait Assistive Devices Assistive Device Gait Belt Front Wheeled Walker Orthotic/Prosthetic Devices or Brace: No Gait Deviations General Gait Pattern Decreased Stride Length Decreased Feet Clearance Factors Limiting Gait Function Factors Limiting Gait Function Decreased Activity Tolerance Decreased Strength Pain Poor Balance Comments Gait Comments Pt reports exhaustion at four feet of ambulation but able to walk six more feet with encouragement, uses FWW safely and cues for upright posture and PLB to help manage pain. Pt is focused on pain and fatigue and limits activity. PT-Balance Assessment Sitting Balance and Reactions Static Sitting Balance Ability Good Dynamic Sitting Balance Ability Good M5 PT-IP Objective Assessments Start: 01/05/19 17:48 Freq: NEEDED Status: Active Protocol: Document 01/05/19 16:18 AB (Rec: 01/05/19 17:56 AB [id number]) Orientation Orientation/Cognition Level of Alertness Alert Orientation Name Place Situation Language Function Ability No Deficits Noted Safety Awareness Decreased Safety Awareness Gross Range of Motion Lower Extremity ROM Assessment Within Functional Limits Strength Lower Extremity Strength Assessment Bilaterally Impaired Hip 4-/5 Knee 4-/5 Muscle Tone Muscle Tone WNL Yes M6 PT-IP Treatment Start: 01/05/19 17:48 Freq: NEEDED Status: Active Protocol: Document 01/07/19 11:18 SA (Rec: 01/07/19 11:29 SA [id number]) Physical Therapy Treatment Exercises Exercises Ankle Pumps Gluteal Sets Quad Sets Education Education Provided Precautions Safety Other Treatments Other Treatment Performed Review of log roll technique for in/out of bed to limit abdominal irritation. M7 PT-IP Assessment and Plan Start: 01/05/19 17:48 Freq: NEEDED Status: Active Protocol: Document 01/07/19 11:18 SA (Rec: 01/07/19 11:29 [id number]) PT Summary Assessment and Plan Summary Impairments Pain ROM Strength Balance Cognition Bed Mobility Transfers Gait Activity Tolerance Progress Towards Goals Slow Progress due to Activity Tolerance Assessment Summary Pt with difficulty initiating activity and requires encouragement to mobilize. CGA with txs and gait with use of FWW. Pt does not have much help at home, and nephew are unable to provide much assistance and daughter has multimedia journalist job and does not live with her. Frequency of Treatment Frequency Of Treatment Once a Day Treatment Plan Physical Therapy Treatment Plan Bed Mobility Training Transfer Training Gait Training Therapeutic Exercise Balance Retraining Discharge Planning Hot or Cold Pack Neuromuscular Re-ed Coordination Retraining Manual Therapy Recommendations To Nursing Amount of Assist Needed 1 Person Assist Discharge Recommendations PT Discharge Recommendations SNF Rehab Equipment Needed for Home Before FWW if pt is going home Discharge
--- NOTE | 2019-01-07 14:11 | CM.DPC ---
DCP Cont: Faxed all clinicals to [facility] for them to review as a new referral at fax # [phone]. Faxed all clinicals to [place] to request an authorization for a SNF stay to fax # [phone]. Both confirmations scanned in. Shaila Anthony, Shanice Bpo Specialist
--- NOTE | 2019-01-07 15:06 | CM.DPNOTE ---
Working on this DCP yesterday and today: Spoke w/Alea Moscoso yesterday, Ostomy nurse. She explained she would place the order for a home wound vac which is expected to be available for pt next week. According to Alea, home health would be helpful if pt agreeable to decrease the times she has to travel into the wound care center. Pt needs the wound vac changed x3 weekly. Spoke w/OT Nallely this morning re: DCP options. PT/OT recommending SNF. Pt would benefit from ongoing skilled therapies to encourage movement and continue to work on strengthening. Nallely spoke w/pt and her dtr Anny today and pt's spouse lives in his trailer parked right outside of their home, he will not be available to assist pt w/any needs. Dtr works time clock mechanic. Met w/pt and her dtr Anny. Pt explained that she likes the system her and she have arranged and she admits he is not the care giving type and will not assist once she is home. Pt has no one else to assist, dtr works time clock mechanic. Pt and dtr agree pt would need to be much more independent in order to DC home w/home health. Reviewed SNF options w/ [place]; [facility] and [facility]. Explained SNF auth request process through [place]. Pt requests referral to [facility]. This RECRUITMENT OFFICER strongly encouraged pt and dtr to consider the possibility that if [place] denies SNF auth request, either paying privately for SNF vs Home w/ Home Health needs to be considered. Both pt and dtr seem to understand but dtr remains assertive that pt needs SNF. Requested that Shaila [facility] fax referral to [facility] for review and [place] to initiate request for SNF auth request. LM for Alea Danis; wound vac at SNF might be needed, although, no SNF or SNF auth has been secured yet. Tri Bennett RECRUITMENT OFFICER
[2019-01-07 16:00] VITALS: BP 148/60; PULSE 64; RESP 18; TEMP 36.5; O2SAT 96
--- NOTE | 2019-01-07 17:21 | PC.NURSE ---
Wound Ostomy Nurse Note Reviewed Tri, Sewing Inspector note and also spoke with her regarding discharging with a [employer] wound vac to [facility]. [facility] does work with [employer] wound vac as some facilities do not work with the [employer] wound vac but other brands. I called [facility] to have them deliver a home wound Vac to Alissa in the hospital to room 106 as she maybe transferred to a SNF this weekend. The original plan was to have the [employer] wound vac delivered to the wound care center and then I would bring it up and place it on the patient. Now the plane is to have the wound vac delivered to the patients room and placed before discharge to the SNF. I called Jennifer her nurse to relay the message regarding the home vac.
[2019-01-07 21:00] VITALS: BP 142/74; PULSE 61; RESP 20; TEMP 36.7; O2SAT 95
[2019-01-07] MEDS: MORPHINE 2 MG/ML INJ IV (21:03)
[2019-01-07] MEDS: INSULIN GLARGINE 100 UNIT/ML 3ML PEN 30 UNIT SUBCUT (21:42)
[2019-01-07] MEDS: GABAPENTIN 300 MG CAPSULE 900 MG PO (21:44)
[2019-01-07] MEDS: ATORVASTATIN 20 MG TABLET PO (21:44)
[2019-01-08 00:10] VITALS: BP 142/67; PULSE 61; RESP 18; TEMP 36.6; O2SAT 97
[2019-01-08] MEDS: PIPERACILLIN-TAZO 3.375 GM/50 ML FROZ.PIGGY IV (00:49)
[2019-01-08 04:40] VITALS: BP 123/53; PULSE 56; RESP 16; TEMP 36.4; O2SAT 93
[2019-01-08] MEDS: MORPHINE ER 15 MG TABLET PO ×3 (05:49→21:24)
[2019-01-08] MEDS: HEPARIN 5,000 UNIT/ML VIAL 5000 UNIT SUBCUT ×3 (05:49→21:29)
[2019-01-08] MEDS: LEVOTHYROXINE 112 MCG TABLET PO (05:49)
[2019-01-08 06:39] LABS: Add Manual Diff / Slide Review NO; Basophils Absolute Auto 0 /uL (0-100); Basophils Percent Auto 0.1 % (0-2); Eosinophils Absolute Auto 200 /uL (0-450); Eosinophils Percent Auto 5.3 % (2-4); Hematocrit 33.3 % (36-46); Hemoglobin 11.4 g/dL (12.0-16.0); Lymphocytes Absolute Auto 1900 /uL (1100-4500); Mean Corpuscular HGB Conc 34.3 % (30-36); Mean Corpuscular Hemoglobin 29.4 PG (26-34); Mean Corpuscular Volume 85.8 fL (80-100); Monocytes Absolute Auto 400 /uL (0-900); Monocytes Percent Auto 9.6 % (3-14); Neutrophils Absolute Auto 1400 /uL (1500-7000); Platelet Count 201 X10^3/uL (150-400); Red Blood Cell Count 3.88 X10^6/uL (4.0-5.2); White Blood Cell Count 3.9 X10^3/uL (4.5-11.0)
[2019-01-08 06:41] LABS: BUN Creatinine Ratio 12.5 (6-22); Blood Urea Nitrogen 5 mg/dL (7-17); Calcium 8.4 mg/dL (8.4-10.2); Carbon Dioxide 32 mmol/L (22-32); Chloride 101 mmol/L (98-107); Estimated Glomerular Filt Rate > 60.0 mL/min (>60); Glucose 102 mg/dL (80-110); HEMOLYSIS < 15 (0-50); Potassium 3.1 mmol/L (3.4-5.1); Sodium 136 mmol/L (137-145)
[2019-01-08 07:22] LABS: Magnesium 1.7 mg/dL (1.6-2.3)
[2019-01-08 07:40] LABS: Procalcitonin 1.03 ng/mL (<0.5)
--- NOTE | 2019-01-08 07:54 | PM.PN.1 ---
Subjective Date Patient Seen: 01/08/19 Time Patient Seen: 07:54 Interval history: Follow-up on acute cholecystitis/cholangitis, status post cholecystectomy and IOC Patient seen at bedside. She is doing well. Patient had a little bit of nausea yesterday morning, which prevented her from having full breakfast. However, patient was able to tolerate p.o. diet all throughout the day thereafter. She was able to work with Physical therapy, who recommended SNF. Otherwise, no other overnight/day events. Patient's abdominal pain is improving. She had bowel movement on 522, however is requesting suppository this morning. Exam Vital Signs (past 8 hours): - 01/08/19 00:10 01/08/19 04:40 Temperature 97.8 F 97.5 F L Pulse Rate 61 56 L Respiratory Rate 18 16 Blood Pressure 142/67 H 123/53 L Pulse Oximetry 97 93 Oxygen Delivery Method Room Air Oxygen Flow Rate 0 Narrative Exam Narrative: General: No acute distress, AAO x3, lying comfortably in bed HEENT: Normocephalic, atraumatic, PERRLA and EOMI bilaterally Neck: Supple, no lymphadenopathy Cardiovascular: Regular rate rhythm, no murmurs or gallops Respiratory: Clear to auscultation bilaterally, no wheezes or crackles GI: Positive bowel sounds in all 4 quadrants, diffuse tenderness in the right upper quadrant as well as epigastric region. No guarding. Laparoscopic incision wounds present, healing well : Right groin wound VAC in place Extremities: No clubbing, cyanosis, or edema. Persistent mild stasis dermatitis in lower extremities BL. No evidence of cellulitis at this time Skin: Stasis dermatitis as above. Otherwise, no bruising or other lesions Neuro: No focal deficits, AAO x3 Psychiatric: Mood is appropriate, patient is able to make her own decisions Objective Labs Result Diagrams: 01/08/19 06:00 01/08/19 06:00 Labs: Laboratory Results - last 24 hr 01/08/19 01/08/19 01/08/19 06:00 06:00 06:00 WBC 3.9 L RBC 3.88 L Hgb 11.4 L Hct 33.3 L MCV 85.8 MCH 29.4 MCHC 34.3 RDW 13.0 Plt Count 201 Neut % (Auto) 36.0 L Lymph % (Auto) 49.0 H [place] % (Auto) 9.6 Eos % (Auto) 5.3 H Baso % (Auto) 0.1 Neut # (Auto) 1400 L Lymph # (Auto) 1900 [place] # (Auto) 400 Eos # (Auto) 200 Baso # (Auto) 0 Sodium 136 L Potassium 3.1 L Chloride 101 Carbon Dioxide 32 BUN 5 L Creatinine 0.40 L Estimated GFR > 60.0 BUN/Creatinine Ratio 12.5 Glucose 102 D Calcium 8.4 Magnesium Procalcitonin 1.03 H 01/08/19 06:05 WBC RBC Hgb Hct MCV MCH MCHC RDW Plt Count Neut % (Auto) Lymph % (Auto) [place] % (Auto) Eos % (Auto) Baso % (Auto) Neut # (Auto) Lymph # (Auto) [place] # (Auto) Eos # (Auto) Baso # (Auto) Sodium Potassium Chloride Carbon Dioxide BUN Creatinine Estimated GFR BUN/Creatinine Ratio Glucose Calcium Magnesium 1.7 Procalcitonin Assessment & Plan Assessment & Plan narrative: 68yo F with PMH of diabetes mellitus type 1, hyperlipidemia, hypothyroidism, meningioma, Sjogren syndrome, fibromyalgia, venous stasis dermatitis who presented with abrupt onset abdominal pain, nausea and vomiting. Was found to be in severe sepsis due to cholecytsitis/cholangitis. Now S/p cholecystectomy and IOS. Sepsis resolved. 1. Acute severe sepsis, present on admission. Resolved. -Likely due to CHolecystitis/Cholangitis -Patient is no longer febrile and is hemodynamically stable. -WBC now down 4.3, and procalc is porperly trending down to 1.03 -switch to Cipro/Flagyl PO for 6 more days to complete 10 day course therapy -Continue to monitor procalc until normalized 2. Acute cholangitis/cholecystitis, present on admission. Resolving. -status post cholecystectomy and IOC, with resolution of duct obstruction as per surgery. Surgery now signed off -Blood cultures x2 have no growth to date -WBC now stable and procalc continues to trend down -CT abdomen and pelvis with contrast demonstrated 7.9 x 5.7 x 5.4 cm fluid collection in the right groin which could represent postsurgical seroma and prominence of the gallbladder and gallbladder wall is massively changed compared to previous exam. -Continue home morphine ER 15 mg every 8 hours. -Deescalate antibiotics to Cipro/Flagyl PO for 6 more days to complete the 10 day course therapy -Diet as tolerated 3. Acute right groin seroma, secondary to previous enlarged lymph node removal, present on admission. Active, Improving -status post I&D with wound VAC placement -Wound culture PREVIOUSLY, after developing seroma, grew stenotrophomonas sensitive to Bactrim and levofloxacin. HOWEVER, this time around seroma microbiology came back as Staph Epi that is resistant to most of antibicterial regimens -Continue Doxycycline 100mg PO BID x 6 more days, as cultures are sensitive to it 4. Chronic left leg cellulitis, present on admission. Resolved -Patient is currently on Doxycycline for R inguinal seroma 5. Diabetes mellitus type 1, chronic, present on admission. Stable. -Hemoglobin A1c 8.7%. -Patient reports highly variable blood sugars. Her sisters report noncompliance with diet with patient frequently eating candy bars. -Patient with no evidence of nephropathy, retinopathy or neuropathy, however, she does have fibromyalgia. -continue home Lantus 30 units daily at bedtime. -Continue ACHS blood glucose checks and low-dose correctional scale insulin. -Ordered dietitian consult. 6. Fibromyalgia and chronic pain, opiate dependent, present on admission. Stable. -Patient with history of fibromyalgia and spinal stenosis. -Continue home morphine ER 15 mg every 8 hours. Patient has not used any more of PRN medications 7. Depression, chronic, present on admission. Stable. -Patient recently lost both her daughters and mother but without overt symptoms of depression. -Continue bupropion 150 mg extended release daily and Lexapro 40 mg daily tomorrow. 8. ADD, chronic, present on admission. Stable. -Discontinued Adderall 30 mg 3 times daily at patients request. 9. Hyperlipidemia, chronic, present on admission. Stable. -Continue atorvastatin 20 mg daily tomorrow. 10. Hypothyroidism, chronic, present on admission. Stable. -Continue levothyroxine 112 mg daily. 11. Gastroesophageal reflux disorder, chronic, present on admission. Stable. -Continue PPI. Disposition: Patient is improving. Pending discharge to Rehab
[2019-01-08 08:23] VITALS: BP 123/56; PULSE 55; RESP 18; TEMP 36.5; O2SAT 96
[2019-01-08] MEDS: POTASSIUM CHLORIDE 40 MEQ in SODIUM CHLORIDE 0.9% 500 ML 130 ML IV (09:24)
[2019-01-08] MEDS: metroNIDAZOLE 500 MG TABLET PO ×3 (09:24→21:28)
[2019-01-08] MEDS: CIPROFLOXACIN 500 MG TABLET PO ×2 (09:24→21:26)
[2019-01-08] MEDS: DOCUSATE 100 MG CAPSULE PO ×2 (09:25→21:26)
[2019-01-08] MEDS: DOXYCYCLINE HYCLATE 100 MG TABLET PO ×2 (09:25→21:26)
[2019-01-08] MEDS: ESCITALOPRAM 10 MG TABLET 40 MG PO (09:25)
[2019-01-08] MEDS: LACTOBACILLUS ACIDOPHILUS TABLET 1 EACH PO ×3 (09:25→17:37)
[2019-01-08] MEDS: SODIUM CHLORIDE 0.9% FLUSH 10 ML IV ×2 (09:26→22:34)
[2019-01-08] MEDS: PANTOPRAZOLE 40 MG VIAL 20 MG IV (09:26)
[2019-01-08] MEDS: LISINOPRIL 5 MG TABLET 2.5 MG PO (09:26)
[2019-01-08] MEDS: METHOCARBAMOL 500 MG TABLET PO ×4 (09:27→21:27)
--- NOTE | 2019-01-08 11:15 | PT.IPTN ---
Current Diagnoses Sepsis, unspecified organism (01/02/19) Unspecified abdominal pain (01/02/19) Sepsis following a procedure, initial encounter (01/02/19) Surgery Performed Operation Date: 01/03/19 16:00 Actual Procedures p Laparoscopic Cholecystectomy with Intraoperative Cholangiograms - Mitchell Bradley MD s Incision and Drainage Right groin seroma - Mitchell Bradley MD Physical Therapy Treatment Note M2 PT-IP Current Condition Start: 01/05/19 17:48 Freq: NEEDED Status: Active Protocol: Document 01/05/19 16:18 AB (Rec: 01/05/19 17:56 AB [id number]) Physical Therapy Current Condition Current Condition Evaluation Date 01/05/19 Treatment Diagnosis sepsis; difficulty in walking Onset Date 01/02/19 Precautions Other Precautions wound vac M3 PT-IP Subjective Start: 01/05/19 17:48 Freq: NEEDED Status: Active Protocol: Document 01/08/19 11:15 RCC (Rec: 01/08/19 12:05 RCC [email or web address]) Subjective Physical Therapy Visit Type Type Treatment Note Visit Start Time 11:15 Visit Stop Time 11:45 Total Visit Minutes 20 Notes 11:15-11:25, pt on BSC until 11:35 then ambulated 11:35-11: 45 Number of BREAKFAST SERVER Visits 0 Physical Therapy Visit Comments Patient Comments pt states that she still is feeling slow to wake up M4 PT-IP Mobility and Gait Start: 01/05/19 17:48 Freq: NEEDED Status: Active Protocol: Document 01/08/19 11:15 RCC (Rec: 01/08/19 12:05 RCC [id number]) PT-Bed Mobility Assessment Supine to Sit Supine to Sit Contact Guard Assistance 1 Person Assistance Head of Bed Elevated Scooting Scooting to Edge of Bed Standby Assistance PT-Transfer Assessment Sit to and From Stand Sit to and from Stand Contact Guard Assistance 1 Person Assistance Equipment Transfer Assistive Device Gait Belt Front Wheeled Walker Transfers Transfer Destination Chair Bedside Commode Transfer Technique Stand Step Pivot Transfer Ability Level of Assist Contact Guard Assistance Gait Assessment Gait Gait Assistance Required: Contact Guard Assist Distance (Feet) 15 Assistive Devices Assistive Device Gait Belt 4 Wheeled Walker Gait Deviations General Gait Pattern Decreased Stride Length Decreased Feet Clearance Flexed Trunk Factors Limiting Gait Function Factors Limiting Gait Function Decreased Activity Tolerance Decreased Strength Pain Comments Gait Comments Pt reporting fatigue in BLEs after gait. O2 saturation 98% on RA and HR 67 bpm after gait . M5 PT-IP Objective Assessments Start: 01/05/19 17:48 Freq: NEEDED Status: Active Protocol: Document 01/05/19 16:18 AB (Rec: 01/05/19 17:56 AB [id number]) Orientation Orientation/Cognition Level of Alertness Alert Orientation Name Place Situation Language Function Ability No Deficits Noted Safety Awareness Decreased Safety Awareness Gross Range of Motion Lower Extremity ROM Assessment Within Functional Limits Strength Lower Extremity Strength Assessment Bilaterally Impaired Hip 4-/5 Knee 4-/5 Muscle Tone Muscle Tone WNL Yes M6 PT-IP Treatment Start: 01/05/19 17:48 Freq: NEEDED Status: Active Protocol: Document 01/08/19 11:15 RCC (Rec: 01/08/19 12:05 RCC [email or web address]) Physical Therapy Treatment Exercises Exercises Ankle Pumps Gluteal Sets Quad Sets Education Education Provided Precautions Safety M7 PT-IP Assessment and Plan Start: 01/05/19 17:48 Freq: NEEDED Status: Active Protocol: Document 01/08/19 11:15 RCC (Rec: 01/08/19 12:05 RCC [email or web address]) PT Summary Assessment and Plan Summary Assessment Summary Pt still very limited with her tolerance to gait, fatigued after 15 ft with FWW and CGA. Pt at this time is safe to transfer with nursing, but not yet able to ambulate safe household distances and well below her prior level of function. Goals Bed Mobility Goal Standby Assistance Transfer Goal Independent Gait Goal Standby Assistance Gait Distance 150 Other Goals up/down 1 step CGA Days to Meet Goals 5 Frequency of Treatment Frequency Of Treatment Once a Day Treatment Plan Other Recommendations and Next Treatment cont. gait training, Focus transitional movements, standing balance Recommendations To Nursing Amount of Assist Needed 1 Person Assist Discharge Recommendations PT Discharge Recommendations SNF Rehab Equipment Needed for Home Before FWW if pt is going home Discharge
[2019-01-08] MEDS: INSULIN ASPART 100 UNIT/ML INSULN PEN SUBCUT ×2 (12:47→17:01)
[2019-01-08 15:30] VITALS: BP 146/72; PULSE 59; RESP 20; TEMP 36.8; O2SAT 97
--- NOTE | 2019-01-08 15:54 | CM.DPNOTE ---
DCP coordination cont.: Spoke amador/Steffen Leach CM P# [phone] ([facility] w/e number), pt has met criteria for SNF auth. Explained that SNF was likely [facility] and pt would be ready Thursday at the earliest. Then spoke w/Arely at [facility], they can accept pt Thursday, updated that [facility] auth is now in place. faxed med list and PASRR per request. The barrier at this time to DC Thursday is [employer] wound vac needs to be delivered to pt's room before DC to [facility]. [facility] does not have an extra wound vac available to pt. Attempted to reach [employer] rep Jennifer Brown P# [phone], had to LM. Unable to place call to [employer] today to chk on delivery date of pt's wound vac for SNF DC. Also unable to update pt and family re: [facility] auth approval and [facility] acceptance. Following closely for coordination of safe DCP. PASRR completed. LAURIE Linares
--- NOTE | 2019-01-08 18:30 | PC.NURSE ---
Addendum entered by Myesha Uribe R.N. 01/08/19 23:43: Pt requests nina hose be removed. This was done. LLE with slight erythema and large area of dark brown crusty lesions. No open areas and no drainage. Pt inquires of this engineering writer what will be done to treat this condition. States applies neosporin daily at home. Encouraged pt to discuss with MD during rounds 01/09. Nothing acute to address at this time. BL calf scd's replaced. Zofran for nausea as pt states multiple hs meds cause this. Daughter rooming in. Original Note: Pt in room 224 and report obtained from TOXICS PROGRAM OFFICER @ beginning of shift. 1400 meds given late after obtaining from pharmacy s/p pt's transfer from ICU. Pt admits to abdominal pain 01/24. Given scheduled narcotics as ordered. Multiple family members present in pt's room. Shreya has completed and dual lumen PICC line flushed with heparin as per protocol. Pt denies nausea. Taking diet well. One assist to commode to void. Wound vac intact and functional to right groin.
[2019-01-08] MEDS: ATORVASTATIN 20 MG TABLET PO (21:25)
[2019-01-08] MEDS: GABAPENTIN 300 MG CAPSULE 900 MG PO (21:27)
[2019-01-08] MEDS: INSULIN GLARGINE 100 UNIT/ML 3ML PEN 30 UNIT SUBCUT (21:43)
[2019-01-08] MEDS: ONDANSETRON 4 MG/2 ML INJ IV (22:34)
[2019-01-09] VITALS: BP 149/75; PULSE 68; RESP 18; TEMP 37; O2SAT 97
[2019-01-09] MEDS: MORPHINE ER 15 MG TABLET PO ×2 (05:30→13:44)
[2019-01-09] MEDS: LEVOTHYROXINE 112 MCG TABLET PO (05:30)
[2019-01-09] MEDS: HEPARIN 5,000 UNIT/ML VIAL 5000 UNIT SUBCUT (05:31)
[2019-01-09 06:03] LABS: Hemoglobin 11.5 g/dL (12.0-16.0); Mean Corpuscular Hemoglobin 29.1 PG (26-34); Mean Corpuscular Volume 85.6 fL (80-100); Platelet Count 212 X10^3/uL (150-400); Red Blood Cell Count 3.97 X10^6/uL (4.0-5.2); White Blood Cell Count 4.4 X10^3/uL (4.5-11.0)
[2019-01-09 06:16] LABS: Add Manual Diff / Slide Review YES
[2019-01-09 06:18] LABS: Blood Urea Nitrogen 6 mg/dL (7-17); Calcium 8.2 mg/dL (8.4-10.2); Carbon Dioxide 33 mmol/L (22-32); Chloride 97 mmol/L (98-107); Estimated Glomerular Filt Rate > 60.0 mL/min (>60); Glucose 223 mg/dL (80-110); HEMOLYSIS < 15 (0-50); Potassium 3.7 mmol/L (3.4-5.1); Sodium 134 mmol/L (137-145)
[2019-01-09 07:55] VITALS: BP 129/61; PULSE 58; RESP 16; TEMP 36.6; O2SAT 92
[2019-01-09] MEDS: INSULIN ASPART 100 UNIT/ML INSULN PEN SUBCUT ×2 (08:15→12:46)
[2019-01-09 08:28] LABS: Neutrophils Absolute Manual 1628 /uL (3000-5900); Polychromasia 1+; Total Cells Counted 100
[2019-01-09] MEDS: SODIUM CHLORIDE 0.9% FLUSH 10 ML IV (08:51)
[2019-01-09] MEDS: PANTOPRAZOLE 40 MG VIAL 20 MG IV (08:51)
[2019-01-09] MEDS: LACTOBACILLUS ACIDOPHILUS TABLET 1 EACH PO ×2 (08:52→12:45)
[2019-01-09] MEDS: METHOCARBAMOL 500 MG TABLET PO ×2 (08:52→12:45)
[2019-01-09] MEDS: DOXYCYCLINE HYCLATE 100 MG TABLET PO (08:52)
[2019-01-09] MEDS: CIPROFLOXACIN 500 MG TABLET PO (08:52)
[2019-01-09] MEDS: LISINOPRIL 5 MG TABLET 2.5 MG PO (08:52)
[2019-01-09] MEDS: metroNIDAZOLE 500 MG TABLET PO ×2 (08:52→13:44)
[2019-01-09] MEDS: ESCITALOPRAM 10 MG TABLET 40 MG PO (08:52)
[2019-01-09] MEDS: DOCUSATE 100 MG CAPSULE PO (08:52)
--- NOTE | 2019-01-09 10:18 | CM.DPC ---
Addendum entered by LAURIE Reyna 01/09/19 15:57: ADD: Per computer operations supervisor, transport now bedside for pt 1430 but no wound vac. YAZMIN called [facility] who states now theres a note stating wound vac not available and to be delivered on Thursday. YAZMIN states pt has d/c orders and going to SNF so [facility] states they are placing an Urgent order and wound vac will be delivered this evening to [facility]. YAZMIN called Diana at [facility] and updated and they are agreeable to pt's vac being clamped and sent with wound vac delivered to their facility this evening. Diana states med rec and d/c summary are not congruent with some missing doses and needs clarification from MD. YAZMIN paged and left msg for MD without return call and YAZMIN updated computer operations supervisor with changes needed and she will help to get changes from MD and provide to [facility]. Return call from [facility] [employer] route driver stating he had left a msg earlier today with info that vac not available until and apologized that YAZMIN did not get his message. [employer] aware of Urgent order for vac and states not in [facility] but may be pulled from somewhere else unknown to him. Plan: Patient discharged via w/c van to [facility] with [facility] wound vac to be delivered this evening. computer operations supervisor helping to contact MD to clarify med rec doses for [facility]. BF Addendum entered by LAURIE Reyna 01/09/19 14:04: ADD: YAZMIN called and faxed [facility] the pt's d/c summary for review and alerting them that she will be going to [facility] today. BF Addendum entered by LAURIE Reyna 01/09/19 12:26: ADD: YAZMIN called [facility] back and finally was able to confirm that they processed the Wound Vac Order and ETA is around 1420 today to pt's room. YAZMIN called [facility] and updated on wound vac delivery and they scheduled transport for pt around 1445. YAZMIN met bedside with MD, pt, sister Lisa, and Dtr Anny and discussed that pt is medically stable for d/c and there is an accepting SNF available to accept pt today. Pt discussed her concern with wanting to stay in [place] and MD and SW discussed possible options of [facility] and then transferring if pt does not like the care etc.. Pt and family feel that SNF at [facility] is a safer option than home to sister's house with wound vac needs and pt is agreeable to d/c to [facility] today after wound vac delivered and placed and pt's Dtr Anny and sister plan to be closely involved and visiting pt at [facility]. YAZMIN provided family with the admissions phone number for [facility] in case they want to try to coordinate transfer from [facility] in the future. YAZMIN faxed pt's d/c summary, PASRR, med rec and scripts to [facility] to review. Plan: Patient to d/c to [facility] with [facility] home wound vac today at 1500. LARUIE Reyna Original Note: DCP SNF and Wound Vac: Per , pt medically stable for d/c today pending wound vac delivery. YAZMIN called [facility] Irene Rajwinder and she confirms that they can accept the pt today and are hoping she can be discharged today due to the holiday tomorrow but since they did not order the wound vac they do not have any information on delivery date and time. YAZMIN called [facility] (since pt has [facility] and Wound RN Alea Moscoso had previously contacted [facility] on Thu01/07/19 with order for home vac to be delivered to hospital and placed prior to d/c to [facility]) and they have a note stating Alea called with the order on Thursday but pt's address and did not match their records and therefore no wound vac delivery at this time and new orders needed. [facility] states if the wound vac orders are faxed this morning then wound vac could be delivered within 4 hours and they will accept the [employer] order form and clinicals faxed to [phone]. signed the [facility] order script form and helped complete the form for wound vac and supplies and YAZMIN called [facility] back to inquire if delivery address and site type were supposed to be [facility], [facility], or pt's home address and [facility] states since wound vac to be delivered to hospital and [facility] address and information should be placed on the order with SNF to call them after d/c with the change in delivery address. YAZMIN faxed wound vac order and clinicals along with pic of the wound to [facility] to review. SW met bedside with pt and adult Dtr and explained role and discussed SNF after wound vac delivered and pt still agreeable with the plan but states that now here preference would be to stay in town and d/c to [facility] rather than [facility]. SW called [facility] and they confirm that currently they are full and already have admits over the next couple days and cannot accept the pt if she discharges in the next couple days. SW updated pt and she is understanding. SW also confirmed that [facility] are not contracted with [facility] and [facility] is the only option at this time locally. Plan: SW to follow closely with [facility] to determine if home vac can be delivered to room today with d/c to [facility] after delivery. PASRR done. Alyce Lozano MSW
[2019-01-09 10:34] VITALS: BP 131/70; PULSE 58; RESP 20; TEMP 36.7; O2SAT 95
--- NOTE | 2019-01-09 11:15 | PT.IPTN ---
Current Diagnoses Sepsis, unspecified organism (01/02/19) Unspecified abdominal pain (01/02/19) Sepsis following a procedure, initial encounter (01/02/19) Surgery Performed Operation Date: 01/03/19 16:00 Actual Procedures p Laparoscopic Cholecystectomy with Intraoperative Cholangiograms - Mitchell Bradley MD s Incision and Drainage Right groin seroma - Mitchell Bradley MD Physical Therapy Treatment Note M2 PT-IP Current Condition Start: 01/05/19 17:48 Freq: NEEDED Status: Active Protocol: Document 01/05/19 16:18 AB (Rec: 01/05/19 17:56 AB [id number]) Physical Therapy Current Condition Current Condition Evaluation Date 01/05/19 Treatment Diagnosis sepsis; difficulty in walking Onset Date 01/02/19 Precautions Other Precautions wound vac M3 PT-IP Subjective Start: 01/05/19 17:48 Freq: NEEDED Status: Active Protocol: Document 01/09/19 10:52 CLB (Rec: 01/09/19 11:37 CLB [id number]) Subjective Physical Therapy Visit Type Type Treatment Note Visit Start Time 10:52 Visit Stop Time 11:15 Total Visit Minutes 23 Notes Pt's daughter and sister present during tx. Number of SUPERVISOR RECEIVING AND PROCESSING Visits 1 Physical Therapy Visit Comments Patient Comments Pt agreeable to participate with therapy. Therapy Pain Assessment Pain When Pain Assessed At Rest Pain Present Pain Present Pain Reported Location Right Upper Abdomen Intensity 6 Scale Used Numeric (1 - 10) Pain Management Techniques Re-positioning Timing of Activity with Medications M4 PT-IP Mobility and Gait Start: 01/05/19 17:48 Freq: NEEDED Status: Active Protocol: Document 01/09/19 10:52 CLB (Rec: 01/09/19 11:37 CLB [id number]) PT-Bed Mobility Assessment Supine to Sit Supine to Sit Contact Guard Assistance 1 Person Assistance Head of Bed Elevated Scooting Scooting to Edge of Bed Standby Assistance PT-Transfer Assessment Sit to and From Stand Sit to and from Stand Contact Guard Assistance 1 Person Assistance Equipment Transfer Assistive Device Gait Belt Front Wheeled Walker Transfers Transfer Destination Bed Transfer Technique Stand Step Pivot Transfer Ability Level of Assist Contact Guard Assistance Gait Assessment Gait Gait Assistance Required: Contact Guard Assist Distance (Feet) 40 Assistive Devices Assistive Device Gait Belt Front Wheeled Walker Gait Deviations General Gait Pattern Decreased Stride Length Decreased Feet Clearance Flexed Trunk Factors Limiting Gait Function Factors Limiting Gait Function Decreased Activity Tolerance Decreased Strength Pain Comments Gait Comments Pt able to increase ambulation distance with slow pace but good balance and safety awareness. M5 PT-IP Objective Assessments Start: 01/05/19 17:48 Freq: NEEDED Status: Active Protocol: Document 01/05/19 16:18 AB (Rec: 01/05/19 17:56 AB [id number]) Orientation Orientation/Cognition Level of Alertness Alert Orientation Name Place Situation Language Function Ability No Deficits Noted Safety Awareness Decreased Safety Awareness Gross Range of Motion Lower Extremity ROM Assessment Within Functional Limits Strength Lower Extremity Strength Assessment Bilaterally Impaired Hip 4-/5 Knee 4-/5 Muscle Tone Muscle Tone WNL Yes M6 PT-IP Treatment Start: 01/05/19 17:48 Freq: NEEDED Status: Active Protocol: Document 01/09/19 10:52 CLB (Rec: 01/09/19 11:37 CLB [id number]) Physical Therapy Treatment Exercises Exercises Ankle Pumps Gluteal Sets Quad Sets Education Education Provided Precautions Safety M7 PT-IP Assessment and Plan Start: 01/05/19 17:48 Freq: NEEDED Status: Active Protocol: Document 01/09/19 10:52 CLB (Rec: 01/09/19 11:37 CLB [id number]) PT Summary Assessment and Plan Summary Progress Towards Goals Slow Progress due to Activity Tolerance Assessment Summary Pt with increased ambulation to ~40ft in room. Pt required assist with wound vac. Pt ambulates slowly but with good balance and safety awareness. Goals Bed Mobility Goal Standby Assistance Transfer Goal Independent Gait Goal Standby Assistance Gait Distance 150 Other Goals up/down 1 step CGA Days to Meet Goals 5 Frequency of Treatment Frequency Of Treatment Once a Day Treatment Plan Other Recommendations and Next Treatment cont. gait training, Focus transitional movements, standing balance Recommendations To Nursing Amount of Assist Needed 1 Person Assist Discharge Recommendations PT Discharge Recommendations SNF Rehab Equipment Needed for Home Before FWW if pt is going home Discharge
--- NOTE | 2019-01-09 13:09 | PM.DS.1 ---
History of Present Illness Date Patient Seen: 01/09/19 Chief complaint: fever, feels like she is freezing Narrative: Alissa Kirby is a 68-year-old female patient with a history type 1 diabetes, meningioma, hypothyroidism, hyperlipidemia, hypothyroidism, Sjogren syndrome, fibromyalgia, venous stasis dermatitis presents to the emergency department for complaints abdominal pain and nausea vomiting following taking Bactrim prescribed for cellulitis. Patient underwent lymph node biopsy on 12/16/[address] Roberts and [facility]. She has since had multiple visits to the ER on 12/26/2018 for an open draining wound of clear fluid that was found to be swollen without erythema and chronic left lower extremity cellulitis for which the patient was started on doxycycline. Patient was apparently seen by her surgeon evaluated with placement of an additional suture. Patient subsequently was seen in the ER on 01/01/2019 when the wound began draining once more however now was swollen with erythema. The patient was discharged from the ER on Bactrim prompting the patient's return to the ER this evening due to adverse reaction to the medication. While in the ER the patient was found to be septic with a temperature spiking to 103, lactate of 2.9, white count low at 2.2 tachycardic at 113. She was found to have low blood sugars treated with glucose IV. The patient states that she has taken her Lantus per usual but has not eaten today. The patient states her sugars have been very erratic and hurts sisters were present during the encounter acknowledge the patient has had erratic eating habits and is not adherent to a diabetic diet including frequent conception a candy bars. The patient denies other complaints of recent illness and denies fevers or chills, nasal congestion or sore throat and does have a history Sjogren's. She denies shortness of breath or cough endorses a history of sleep apnea sleeping in a recliner. She is Had no chest pain or palpitations. She has had no abdominal pain prior to today which occurred right after taking Bactrim resulting in vomiting. She reports no constipation or diarrhea. She has no complaints of urgency frequency or hematuria. She does have a history of fibromyalgia which she describes as ?all over? as well as restless leg syndrome and bilateral lower extremity venous stasis with pedal edema. In the emergency department a CT was obtained finding of fluid pocket 7.9 x 5.7 x 5.4 in the right groin. It was also noted the patient had dilated gallbladder with gallstones, mildly dilated hepatic ducts, dilated common bile duct. Abdominal ultrasound findings hepatic echogenicity with CBD dilation and intrahepatic dilatation. There is no notation of obstruction. On CBC the patient has white count 2.2 with a hemoglobin of 13.1 and hematocrit of 39.6 with platelets of 172. She has elevated neutrophils at 87.1% with no bandemia. Her coags within normal limits. Her coag on arrival was 2.9 which improved to 1.8 with fluid resuscitation. Patient chemistries show electrolytes within normal range a BUN of 14 and creatinine is 0.5 with glucose of 111. She notably has a normal total bilirubin at 0.7 with an elevated AST of 77 and ALT of 34 and alkaline phosphatase elevated 133. The ER provider attempted to transfer the patient to [facility] for further care where surgery was done however no beds are available therefore the patient will be admitted at [facility]. Dr. Pham, general surgery was consulted. Dr. Pham recent came and saw the patient and evaluated the wound finding a seroma with no need for immediate surgical intervention. Discharge Providers Date of admission: 01/02/19 22:37 Discharge Date: 01/09/19 Primary care physician: Brittany Warner MD Consults: 01/03/19 00:11 Consult to Dietitian, Adult Routine Comment: Reason For Exam: Non compliet Type 1 Diabetic Consult to Respiratory Therapy Evaluate & Treat Comment: KELLIE not on CPAP, oxygen therapy Physician Instructions: Evaluate and treat 01/03/19 00:12 Consult to General Surgery Routine Comment: Consulting Provider: Kesha Mckeon Reason for consultation: Wound infection, cholelithiasis Has provider been notified: Yes 01/03/19 18:46 Consult to Wound Care Routine Comment: Wound vac to seroma pocket MWF(M done by surgery) Consulting Provider: [facility] 01/05/19 09:58 Consult to Physical Therapy Evaluate & Treat Comment: Physician Instructions: Evaluate and Treat 01/06/19 09:49 Consult to Occupational Therapy Evaluate & Treat Comment: Physician Instructions: Evaluate and treat Discharge provider: Stacey Gaston MD Summary Discharge Diagnosis: 1. Sepsis, present on admission 2. Acute cholangitis 3. Status post cholecystectomy, with IOC, and ascending cholangitis 4. Left groin seroma with wound VAC in place 5. Type 1 diabetes 6. Stasis dermatitis 7. Sjogren syndrome 8. Hypothyroid 9. Hyperlipidemia 10. History of meningioma 11. ADD 12. Depression 13. Gastroesophageal reflux disease Hospital Course: Patient is a 68-year-old female who was admitted to the hospital who was found to have severe sepsis. The patient was ultimately found to have cholangitis, and underwent cholecystectomy. She also was found have a left groin seroma which was I&D and resulted in a wound VAC placed. After definitive surgery her sepsis improved. She was treated with IV Zosyn and IV vancomycin for a total of 7 days. Her diet was advanced. The patient had no further nausea vomiting or diarrhea. She had no more hypotension or fevers. Patient felt she was unable to return home and based on the assessment of PT and OT it was recommended that she follow up at [facility] for ongoing care. The patient was agreeable to transfer to [facility] for rehabilitation. At the time of discharge she was significantly improved and deemed appropriate for transfer to the [place] [facility]. Status at Discharge Cognitive/behavioral status at discharge: oriented Functional status at discharge: independent ambulation Overall status at discharge: patient is not back to baseline Time Spent with Patient Less than 30 minutes Exam Vital Signs (past 8 hours): - 01/09/19 07:55 01/09/19 10:34 Temperature 97.9 F 98.1 F Pulse Rate 58 L 58 L Respiratory Rate 16 20 Blood Pressure 129/61 131/70 Pulse Oximetry 92 95 Oxygen Delivery Method Room Air Oxygen Flow Rate 0 Narrative Exam Narrative: Pleasant female resting in bed Lungs: Clear to auscultation Cardiac exam: Regular rate and rhythm normal S1-S2 Abdomen: Soft, multiple laparoscopic surgical sites identified. No evidence of erythema or warmth. There is a wound VAC placed over the right groin Extremities: Left leg with stasis dermatitis Objective Labs Result Diagrams: 01/09/19 05:30 01/09/19 05:30 Labs: Laboratory Results - last 24 hr 01/09/19 01/09/19 01/09/19 05:30 05:30 05:30 WBC 4.4 L RBC 3.97 L Hgb 11.5 L Hct 34.0 L MCV 85.6 MCH 29.1 MCHC 34.0 RDW 13.0 Plt Count 212 Neut % (Auto) Not Reportable Lymph % (Auto) Not Reportable [place] % (Auto) Not Reportable Eos % (Auto) Not Reportable Baso % (Auto) Not Reportable Lymph # (Auto) Not Reportable [place] # (Auto) Not Reportable Baso # (Auto) Not Reportable Total Counted 100 Seg Neutrophils % 32.0 L Band Neutrophils % 5.0 Lymphocytes % (Manual) 32.0 Atypical Lymphs % 13.0 H Monocytes % (Manual) 8.0 Eosinophils % (Manual) 9.0 H Metamyelocytes % 1.0 H Neutrophils # (Manual) 1628 L RBC Morphology See below Polychromasia 1+ H Sodium 134 L Potassium 3.7 Chloride 97 L Carbon Dioxide 33 H BUN 6 L Creatinine 0.40 L Estimated GFR > 60.0 BUN/Creatinine Ratio 15.0 Glucose 223 H D Calcium 8.2 L Procalcitonin 0.50 Discharge Plan Discharge Plan Discharge Problem: Post-operative infection Patient Disposition: SNF Transfer to: [facility] Transportation: Ambulance I certify the postop hospital [facility] care is medically necessary on a continuing basis for any conditions for which he/ she received care during this hospitalization.: Yes The receiving facility has agreed to accept transfer and provide medical treatment.: Yes Discharge Med Rec/Prescriptions Prescriptions: New morphine [MS Contin] 15 mg tablet extended release 15 mg PO Q8H Qty: 30 RF: 0 Continued levothyroxine 112 mcg Capsule 112 mcg PO DAILY Qty: 0 RF: 0 omeprazole 20 mg Capsule,Delayed Release(Dr/Ec) 20 mg PO Q DAY Qty: 0 RF: 0 escitalopram oxalate [Lexapro] 20 mg Tablet 2 tab PO DAILY Qty: 0 RF: 0 cevimeline 30 mg Capsule 1 cap PO TID RF: 0 furosemide 20 mg Tablet 1 tab PO DAILY PRN (Reason: edema) RF: 0 lisinopril 2.5 mg Tablet 2.5 mg PO DAILY RF: 0 Novolog Flexpen U-100 Insulin 100 unit/mL Insulin Pen 4 - 6 unit SUBCUT AC RF: 0 hydrocodone-acetaminophen 5-325 mg Tablet 1 tab PO TID Qty: 0 RF: 0 Lantus Solostar U-100 Insulin 100 unit/mL (3 mL) insulin pen 30 unit SUBCUT BEDTIME RF: 0 dextroamphetamine-amphetamine 30 mg Tablet 30 mg PO TID RF: 0 atorvastatin 20 mg Tablet 20 mg PO DAILY RF: 0 morphine [MS Contin] 15 mg Tablet Extended Release 15 mg PO Q8H RF: 0 Follow up/Referrals: Brittany Warner MD [Primary Care Provider] - Provider Discharge Instructions Diet: Low-sodium and Low-cholesterol Liquid consistency: Normal/Thin Food texture: Regular Activity: aS tolerated Skin/Wound/Dressing Care Report to your healthcare provider any signs of infection, such as:: chills, fever, increased pain, unusual drainage and unusual redness Dressing: Wound VAC to the right groin Other wound treatment: Wound VAC to the right groin [facility] Reason for rehabilitation: Post-operative therapy and Recovery r/t decondition Rehab type: Physical therapy and Occupational therapy Discharge Data Primary Care Provider: Brittany Warner Attending Provider: Andrea Ontiveros Admit Date/Time: 01/02/19 22:37
--- NOTE | 2019-01-09 13:16 | P.DS_ITS ---
History of Present Illness Date Patient Seen: 01/09/19 Chief complaint: fever, feels like she is freezing Narrative: Alissa Kirby is a 68-year-old female patient with a history type 1 diabetes, meningioma, hypothyroidism, hyperlipidemia, hypothyroidism, Sjogren syndrome, fibromyalgia, venous stasis dermatitis presents to the emergency department for complaints abdominal pain and nausea vomiting following taking Bactrim prescribed for cellulitis. Patient underwent lymph node biopsy on 12/16/[address] Roberts and [facility]. She has since had multiple visits to the ER on 12/26/2018 for an open draining wound of clear fluid that was found to be swollen without erythema and chronic left lower extremity cellulitis for which the patient was started on doxycycline. Patient was apparently seen by her surgeon evaluated with placement of an additional suture. Patient subsequently was seen in the ER on 01/01/2019 when the wound began draining once more however now was swollen with erythema. The patient was discharged from the ER on Bactrim prompting the patient's return to the ER this evening due to adverse reaction to the medication. While in the ER the patient was found to be septic with a temperature spiking to 103, lactate of 2.9, white count low at 2.2 tachycardic at 113. She was found to have low blood sugars treated with glucose IV. The patient states that she has taken her Lantus per usual but has not eaten today. The patient states her sugars have been very erratic and hurts sisters were present during the encounter acknowledge the patient has had erratic eating habits and is not adherent to a diabetic diet including frequent conception a candy bars. The patient denies other complaints of recent illness and denies fevers or chills, nasal congestion or sore throat and does have a history Sjogren's. She denies shortness of breath or cough endorses a history of sleep apnea sleeping in a recliner. She is Had no chest pain or palpitations. She has had no abdominal pain prior to today which occurred right after taking Bactrim resulting in vomiting. She reports no constipation or diarrhea. She has no complaints of urgency frequency or hematuria. She does have a history of fibromyalgia which she describes as ?all over? as well as restless leg syndrome and bilateral lower extremity venous stasis with pedal edema. In the emergency department a CT was obtained finding of fluid pocket 7.9 x 5.7 x 5.4 in the right groin. It was also noted the patient had dilated gallbladder with gallstones, mildly dilated hepatic ducts, dilated common bile duct. Abdominal ultrasound findings hepatic echogenicity with CBD dilation and intrahepatic dilatation. There is no notation of obstruction. On CBC the patient has white count 2.2 with a hemoglobin of 13.1 and hematocrit of 39.6 with platelets of 172. She has elevated neutrophils at 87.1% with no bandemia. Her coags within normal limits. Her coag on arrival was 2.9 which improved to 1.8 with fluid resuscitation. Patient chemistries show electrolytes within normal range a BUN of 14 and creatinine is 0.5 with glucose of 111. She notably has a normal total bilirubin at 0.7 with an elevated AST of 77 and ALT of 34 and alkaline phosphatase elevated 133. The ER provider attempted to transfer the patient to [facility] for further care where surgery was done however no beds are available therefore the patient will be admitted at [facility]. Dr. Pham, general surgery was consulted. Dr. Pham recent came and saw the patient and evaluated the wound finding a seroma with no need for i mmediate surgical intervention. Discharge Providers Date of admission: 01/02/19 22:37 Discharge Date: 01/09/19 Primary care physician: Brittany Warner MD Consults: 01/03/19 00:11 Consult to Dietitian, Adult Routine Comment: Reason For Exam: Non compliet Type 1 Diabetic Consult to Respiratory Therapy Evaluate & Treat Comment: KELLIE not on CPAP, oxygen therapy Physician Instructions: Evaluate and treat 01/03/19 00:12 Consult to General Surgery Routine Comment: Consulting Provider: Kesha Mckeon Reason for consultation: Wound infection, cholelithiasis Has provider been notified: Yes 01/03/19 18:46 Consult to Wound Care Routine Comment: Wound vac to seroma pocket MWF(M done by surgery) Consulting Provider: [facility] 01/05/19 09:58 Consult to Physical Therapy Evaluate & Treat Comment: Physician Instructions: Evaluate and Treat 01/06/19 09:49 Consult to Occupational Therapy Evaluate & Treat Comment: Physician Instructions: Evaluate and treat Discharge provider: Stacey Gaston MD Summary Discharge Diagnosis: 1. Sepsis, present on admission 2. Acute cholangitis 3. Status post cholecystectomy, with IOC, and ascending cholangitis 4. Left groin seroma with wound VAC in place 5. Type 1 diabetes 6. Stasis dermatitis 7. Sjogren syndrome 8. Hypothyroid 9. Hyperlipidemia 10. History of meningioma 11. ADD 12. Depression 13. Gastroesophageal reflux disease Hospital Course: Patient is a 68-year-old female who was admitted to the hospital who was found to have severe sepsis. The patient was ultimately found to have cholangitis, and underwent cholecystectomy. She also was found have a left groin seroma which was I&D and resulted in a wound VAC placed. After definitive surgery her sepsis improved. She was treated with IV Zosyn and IV vancomycin for a total of 7 days. Her diet was advanced. The patient had no further nausea vomiting or diarrhea. She had no more hypotension or fevers. Patient felt she was unable to return home and based on the assessment of PT and OT it was recommended that she follow up at the intermediate unit for ongoing care. The patient was agreeable to transfer to [facility] for rehabilitation. At the time of discharge she was significantly improved and deemed appropriate for transfer to the intermediate facility. Status at Discharge Cognitive/behavioral status at discharge: oriented Functional status at discharge: independent ambulation Overall status at discharge: patient is not back to baseline Time Spent with Patient Less than 30 minutes Exam Vital Signs (past 8 hours): - 01/09/19 07:55 01/09/19 10:34 Temperature 97.9 F 98.1 F Pulse Rate 58 L 58 L Respiratory Rate 16 20 Blood Pressure 129/61 131/70 Pulse Oximetry 92 95 Oxygen Delivery Method Room Air Oxygen Flow Rate 0 Narrative Exam Narrative: Pleasant female resting in bed Lungs: Clear to auscultation Cardiac exam: Regular rate and rhythm normal S1-S2 Abdomen: Soft, multiple laparoscopic surgical sites identified. No evidence of erythema or warmth. There is a wound VAC placed over the right groin Extremities: Left leg with stasis dermatitis Objective Labs Result Diagrams: 01/09/19 05:30 01/09/19 05:30 Labs: Laboratory Results - last 24 hr 01/09/19 01/09/19 01/09/19 05:30 05:30 05:30 WBC 4.4 L RBC 3.97 L Hgb 11.5 L Hct 34.0 L MCV 85.6 MCH 29.1 MCHC 34.0 RDW 13.0 Plt Count 212 Neut % (Auto) Not Reportable Lymph % (Auto) Not Reportable [place] % (Auto) Not Reportable Eos % (Auto) Not Reportable Baso % (Auto) Not Reportable Lymph # (Auto) Not Reportable [place] # (Auto) Not Reportable Baso # (Auto) Not Reportable Total Counted 100 Seg Neutrophils % 32.0 L Band Neutrophils % 5.0 Lymphocytes % (Manual) 32.0 Atypical Lymphs % 13.0 H Monocytes % (Manual) 8.0 Eosinophils % (Manual) 9.0 H Metamyelocytes % 1.0 H Neutrophils # (Manual) 1628 L RBC Morphology See below Polychromasia 1+ H Sodium 134 L Potassium 3.7 Chloride 97 L Carbon Dioxide 33 H BUN 6 L Creatinine 0.40 L Estimated GFR > 60.0 BUN/Creatinine Ratio 15.0 Glucose 223 H D Calcium 8.2 L Procalcitonin 0.50 Discharge Plan Discharge Plan Discharge Problem: Post-operative infection Patient Disposition: SNF Transfer to: [facility] Transportation: Ambulance I certify the postop hospital intermediate care is medically necessary on a continuing basis for any conditions for which he/ she received care during this hospitalization.: Yes The receiving facility has agreed to accept transfer and provide medical treatment.: Yes Discharge Med Rec/Prescriptions Prescriptions: New morphine [MS Contin] 15 mg tablet extended release 15 mg PO Q8H Qty: 30 RF: 0 Continued levothyroxine 112 mcg Capsule 112 mcg PO DAILY Qty: 0 RF: 0 omeprazole 20 mg Capsule,Delayed Release(Dr/Ec) 20 mg PO Q DAY Qty: 0 RF: 0 escitalopram oxalate [Lexapro] 20 mg Tablet 2 tab PO DAILY Qty: 0 RF: 0 cevimeline 30 mg Capsule 1 cap PO TID RF: 0 furosemide 20 mg Tablet 1 tab PO DAILY PRN (Reason: edema) RF: 0 lisinopril 2.5 mg Tablet 2.5 mg PO DAILY RF: 0 Novolog Flexpen U-100 Insulin 100 unit/mL Insulin Pen 4 - 6 unit SUBCUT AC RF: 0 hydrocodone-acetaminophen 5-325 mg Tablet 1 tab PO TID Qty: 0 RF: 0 Lantus Solostar U-100 Insulin 100 unit/mL (3 mL) insulin pen 30 unit SUBCUT BEDTIME RF: 0 dextroamphetamine-amphetamine 30 mg Tablet 30 mg PO TID RF: 0 atorvastatin 20 mg Tablet 20 mg PO DAILY RF: 0 morphine [MS Contin] 15 mg Tablet Extended Release 15 mg PO Q8H RF: 0 Follow up/Referrals: Brittany Warner MD [Primary Care Provider] - Provider Discharge Instructions Diet: Low-sodium and Low-cholesterol Liquid consistency: Normal/Thin Food texture: Regular Activity: aS tolerated Skin/Wound/Dressing Care Report to your healthcare provider any signs of infection, such as:: chills, fever, increased pain, unusual drainage and unusual redness Dressing: Wound VAC to the right groin Other wound treatment: Wound VAC to the right groin [facility] Reason for rehabilitation: Post-operative therapy and Recovery r/t decondition Rehab type: Physical therapy and Occupational therapy Discharge Data Primary Care Provider: Brittany Warner Attending Provider: Andrea Ontiveros Admit Date/Time: 01/02/19 22:37
--- NOTE | 2019-01-09 13:59 | PC.NURSE ---
Discharge Report called to [facility], spoke with Pau. awaiting outpt wound vac delivery and transfer. d/c packet assembled and ready.
--- NOTE | 2019-01-09 14:57 | PC.NURSE ---
COORDINATOR NOTE/WOUND VAC: PER TIMA IN CM, WOUND VAC WILL NOT ARRIVE FOR 4 HRS. [facility] ARE OKAY WITH THE WOUND VAC BEING DELIVERED TO [facility], AT THAT TIME. PLAN TO CLAMP WOUND VAC WITH DRAINAGE CASSETTE IN PLACE, BUT DISCONNECTED FROM THE MACHINE, AND SEND PATIENT WITH [facility] INTACT. THEY CAN RECONNECT IT WHEN IT THE NEW VAC ARRIVES. PER TIMA IN CM, [facility] IS OKAY WITH THIS PLAN. TIMA STATES SHE CALLED [facility] AND THEY ARE SENDING IT TO [facility].
--- NOTE | 2019-01-09 15:29 | PC.NURSE ---
Assumed care at 1415 to cover during patient's discharge. Paperwork and report previously completed by off going RN Kate Mejia Per coordinator change in plans as wound vac not arriving here to [facility] in time, wound vac dressing and canister in place (clamped), and wound vac equipment to be delivered this evening at facility. Patient picked up via wheelchair by transport with all belongings.
== END 2019-01-09 15:15 | DRG 853 ==
LOC: ED 16:48 → AC 22:37 → ICU 01-03 11:59 → AC 01-08 14:52
PROVIDERS: Internal Medicine; Surgery; Admitting Provider Nurse Practitioner Adult Health; Emergency Provider Nurse Practitioner Family; PCP Internal Medicine; Visit Provider Nurse Practitioner Adult Health
PROC: 0FT44ZZ Resection of Gallbladder, Percutaneous Endoscopic Approach (ICD-10-PCS; CPT 47562; principal; 2019-01-03 16:00)
PROC: 0FT44ZZ Resection of Gallbladder, Percutaneous Endoscopic Approach (ICD-10-PCS; 2019-01-03 16:00)
DX: A41.9 Sepsis, unspecified organism (principal); R65.21 Severe sepsis with septic shock; K83.1 Obstruction of bile duct; T81.49XA Infection following a procedure, other surgical site, initial encounter; L03.314 Cellulitis of groin; L76.34 Postprocedural seroma of skin and subcutaneous tissue following other procedure; T81.31XA Disruption of external operation (surgical) wound, not elsewhere classified, initial encounter; K81.0 Acute cholecystitis; I95.9 Hypotension, unspecified; M79.7 Fibromyalgia; F32.9 Major depressive disorder, single episode, unspecified; E03.9 Hypothyroidism, unspecified; E78.5 Hyperlipidemia, unspecified; G25.81 Restless legs syndrome; F17.210 Nicotine dependence, cigarettes, uncomplicated; M35.00 Sjogren syndrome, unspecified; K21.9 Gastro-esophageal reflux disease without esophagitis; Z79.4 Long term (current) use of insulin; G89.29 Other chronic pain; F98.8 Other specified behavioral and emotional disorders with onset usually occurring in childhood and adolescence; E10.9 Type 1 diabetes mellitus without complications; Z79.899 Other long term (current) drug therapy; I87.2 Venous insufficiency (chronic) (peripheral)
CPT/HCPCS: 10140; 36415; 36569; 36591; 36592; 47562; 71045; 74177; 74300; 76705; 80048; 80053; 80061; 80202; 81001; 81003; 82962; 83036; 83605; 83735; 84145; 84484; 85025; 87040; 87070; 87075; 87077; 87147; 87186; 87205; 87797; 93005; 93010; 94762; 96365; 96366; 96367; 96375; 97110; 97116; 97162; 97165; 97530; 97535; 99232; 99282; 99284; 99285; 99406; C9113; J0330; J1170; J1642; J1644; J1940; J2270; J2405; J2543; J2704; J3010; J3370; J3480; Q9967

== ENCOUNTER 2019-01-09 22:45 | Emergency (ER) | payer OTHER, SELFPAY ==
[2019-01-03 00:45] VITALS: BMI 29.1
--- NOTE | 2019-01-09 22:53 | ED.RECABL ---
HPI - Recheck/Abnormal Lab/Rx General Chief Complaint: Recheck/Abnormal Lab/Rx Stated Complaint: wound is draining Time Seen by Provider: 01/09/19 22:47 Source: patient and family Mode of arrival: wheelchair Limitations: no limitations History of Present Illness HPI narrative: 68F nonsmoker is here with two family members and the chief complaint of drainage from a recently placed wound Vac. She feels fine and at baseline otherwise. She denies pain, fever or chills. She had been admitted here for the past week after an admission diagnosis of severe sepsis relating to cholecystitis. She had a wound vac placed to help a recently biopsied lymph node in her groin. She was discharged today to a local assisted facility and was unable to get a new wound vac. This evening she left her SNF to come here to see if she may get another wound vac. complaint: wound re-check Initial visit (ago): day(s) Initial visit for: other Returns today for: wound recheck Symptoms since prior visit: no new symptoms Associated symptoms: none Related Data Home Medications Medication Instructions Recorded Confirmed escitalopram oxalate [Lexapro] 2 tab PO DAILY #0 03/16/10 01/03/19 levothyroxine 112 mcg PO DAILY #0 03/16/10 01/03/19 omeprazole 20 mg PO Q DAY #0 03/16/10 01/03/19 Novolog Flexpen U-100 Insulin 4 - 6 unit SUBCUT AC 06/24/18 01/03/19 cevimeline 1 cap PO TID 06/24/18 01/03/19 furosemide 1 tab PO DAILY PRN 06/24/18 01/03/19 lisinopril 2.5 mg PO DAILY 06/24/18 01/03/19 Lantus Solostar U-100 Insulin 30 unit SUBCUT BEDTIME 01/03/19 01/03/19 atorvastatin 20 mg PO DAILY 01/03/19 01/03/19 dextroamphetamine-amphetamine 30 mg PO TID 01/03/19 01/03/19 morphine [MS Contin] 15 mg PO Q8H 01/05/19 01/05/19 Previous Rx's Medication Instructions Recorded hydrocodone-acetaminophen 1 tab PO TID #0 tab 06/27/18 morphine [MS Contin] 15 mg PO Q8H #30 tab 01/09/19 Allergies Allergy/AdvReac Type Severity Reaction Status Date / Time No Known Drug Allergies Allergy Verified 01/01/19 07:53 Review of Systems Constitutional Denies chills, Denies fever(s), Denies lethargy and Denies weakness Eyes Denies change in vision, Denies eye discharge, Denies irritation and Denies loss of vision ENT Ears, Nose, Mouth, and Throat: Denies change in voice, Denies neck pain and Denies sore throat Cardiovascular Denies chest pain, Denies irregular heart rhythm, Denies lightheadedness, Denies palpitations, Denies dyspnea, Denies dyspnea on exertion and Denies orthopnea Respiratory Denies cough, Denies dyspnea, Denies dyspnea on exertion and Denies wheezing Gastrointestinal Gastrointestinal: Denies abdominal pain, Denies change in bowel habits, Denies diarrhea, Denies nausea and Denies vomiting Genitourinary Denies hematuria, Denies flank pain, Denies urinary incontinence and Denies urinary urgency Musculoskeletal Denies neck pain Integumentary/Breasts Denies pruritus, Denies erythema, Denies rash and Reports wounds Neurologic Denies confusion, Denies loss of vision and Denies weakness Psychiatric Denies anxiety, Denies confusion, Denies depression, Denies homicidal ideation and Denies suicidal ideation Endocrine Denies palpitations Hematologic/Lymphatic Denies easy bruising Allergic/Immunologic Denies wheezing PFSH Medical History Fibromyalgia (Acute) Depression (Chronic) Diabetes (Chronic) Fibromyalgia (Chronic) GERD (gastroesophageal reflux disease) (Chronic) Hyperlipidemia (Chronic) Hypothyroidism (Chronic) Meningioma (Chronic) Restless leg syndrome (Chronic) Sjogren's disease (Chronic) Sleep apnea (Chronic) Spinal stenosis, lumbar (Chronic) Venous stasis dermatitis of both lower extremities (Chronic) Surgical History History of lymph node biopsy (Acute) H/O total hysterectomy (Resolved) Social History household members: spouse and family Smoking Status: Current every day smoker alcohol intake: current Social History household members: spouse and family Smoking Status: Current every day smoker alcohol intake: current Exam Narrative Exam Narrative: GEN: AOx3 and in mild distress EYES: Pupils are equal, round, and reactive to light and accommodation. Extraoccular muscles are intact bilaterally. There is no subconjunctival hemorrhage or exudate. CHEST: Lungs are clear to auscultation bilaterally and free of wheezes, rales, or rhonchi. Heart rate is regular rhythm, there are no murmurs, clicks, rubs, or gallops. There is no chest wall tenderness. ABD: Wound Vac in groin in place, no drainage noted. No pain. No redness. No induration or fluctuance. Abdomen is soft and nontender. There is no guarding or rebound. Bowel sounds are normal in all 4 quadrants. There is no mass or organomegaly. EXT: Full painless ROM of all extremities with no loss of sensation or strength. SKIN: Warm, pink, and dry. No erythema or rash Initial Vital Signs Initial Vital Signs: Vital Signs Temperature 97.4 F L 01/09/19 23:05 Pulse Rate 65 01/09/19 23:05 Respiratory Rate 16 01/09/19 23:05 Blood Pressure 173/77 H 01/09/19 23:05 Pulse Oximetry 100 01/09/19 23:05 Course Consultations Consultation #1: call to Dr. Foster (Gen Surg) regarding next appropriate steps and he agrees to come see patient and family whom have now had their questions answered to their apparent satisfaction Vital Signs - 8 hr 01/09/19 23:05 01/09/19 23:25 01/10/19 00:55 Temperature 97.4 F L 97.5 F L Pulse Rate 65 60 65 Respiratory Rate 16 16 Blood Pressure 173/77 H 164/58 H Blood Pressure [Left Arm] 173/77 H Pulse Oximetry 100 97 97 MDM - Recheck/Abnormal Lab/Rx Differential Diagnosis Likely encounter for wound recheck Discharge Plan Departure Patient Disposition: Home Clinical Impression: Encounter for wound re-check Discharge Date/Time: 01/10/19 01:00 Interventions: ED Discharge Assessment Last Done: 01/10/19 00:55 Instructions: How to Care for a Surgical Wound Activity Restrictions/Additional Instructions: *You have been diagnosed with [surgical wound drainage] *What to do: *continue to take medications as directed *Follow up with your primary care provider in 2-3 days, call for an appointment. Let them know you were seen in the Emergency Department and that we ask that you be seen in follow up *Return to ER if you should have any new, worsening or concerning symptoms Prescriptions: No Action levothyroxine 112 mcg Capsule 112 mcg PO DAILY Qty: 0 RF: 0 omeprazole 20 mg Capsule,Delayed Release(Dr/Ec) 20 mg PO Q DAY Qty: 0 RF: 0 escitalopram oxalate [Lexapro] 20 mg Tablet 2 tab PO DAILY Qty: 0 RF: 0 cevimeline 30 mg Capsule 1 cap PO TID RF: 0 furosemide 20 mg Tablet 1 tab PO DAILY PRN (Reason: edema) RF: 0 lisinopril 2.5 mg Tablet 2.5 mg PO DAILY RF: 0 Novolog Flexpen U-100 Insulin 100 unit/mL Insulin Pen 4 - 6 unit SUBCUT AC RF: 0 hydrocodone-acetaminophen 5-325 mg Tablet 1 tab PO TID Qty: 0 RF: 0 Lantus Solostar U-100 Insulin 100 unit/mL (3 mL) insulin pen 30 unit SUBCUT BEDTIME RF: 0 dextroamphetamine-amphetamine 30 mg Tablet 30 mg PO TID RF: 0 atorvastatin 20 mg Tablet 20 mg PO DAILY RF: 0 morphine [MS Contin] 15 mg Tablet Extended Release 15 mg PO Q8H RF: 0 morphine [MS Contin] 15 mg tablet extended release 15 mg PO Q8H Qty: 30 RF: 0 Referrals: Brittany Warner MD [Primary Care Provider] -
[2019-01-09 23:05] VITALS: BP 173/77; PULSE 65; RESP 16; TEMP 36.3; O2SAT 100
[2019-01-09 23:25] VITALS: BP 173/77; PULSE 60; O2SAT 97
--- NOTE | 2019-01-10 00:03 | PC.NURSE ---
Op Site dressing applied to reinforce and seal existing wound vac dressing.
--- NOTE | 2019-01-10 00:21 | PC.NURSE ---
Dr Foster, surgeon, now at bedside.
[2019-01-10 00:55] VITALS: BP 164/58; PULSE 65; RESP 16; TEMP 36.4; O2SAT 97
--- NOTE | 2019-01-10 00:59 | PC.NURSE ---
Pt assisted to bathroom x 2 via WC. Pt able to transfer from to bed and WC to toilet with stand-by assist and steady gait.
== END 2019-01-10 01:00 | disposition home or self-care (01) ==
PROVIDERS: Emergency Provider Emergency Medicine; PCP Internal Medicine
DX: R10.9 Unspecified abdominal pain (principal); Z51.89 Encounter for other specified aftercare
CPT/HCPCS: 99282; 99283

== ENCOUNTER 2019-01-23 04:20 | Emergency (ER) | payer OTHER, SELFPAY ==
[2019-01-03 00:45] VITALS: BMI 29.1
[2019-01-23 04:20] VITALS: BP 133/91; PULSE 92; RESP 16; TEMP 36.5; O2SAT 97; BMI 25.8
--- NOTE | 2019-01-23 04:29 | ED_ITS ---
HPI - General Adult General Chief complaint: Recheck/Abnormal Lab/Rx Stated complaint: Wound vac is broken Time Seen by Provider: 01/23/19 04:20 Source: patient Mode of arrival: ambulatory Limitations: no limitations History of Present Illness HPI narrative: 68-year-old female here for evaluation of concerns for her wound VAC not operating properly. She has a wound VAC in place secondary to a surgical wound complication. Patient states the wound VAC is beeping. She states she cannot get the plug to stay in order to discharge the battery. Related Data Home Medications Medication Instructions Recorded Confirmed escitalopram oxalate [Lexapro] 2 tab PO DAILY #0 03/16/10 01/03/19 levothyroxine 112 mcg PO DAILY #0 03/16/10 01/03/19 omeprazole 20 mg PO Q DAY #0 03/16/10 01/03/19 Novolog Flexpen U-100 Insulin 4 - 6 unit SUBCUT AC 06/24/18 01/03/19 cevimeline 1 cap PO TID 06/24/18 01/03/19 furosemide 1 tab PO DAILY PRN 06/24/18 01/03/19 lisinopril 2.5 mg PO DAILY 06/24/18 01/03/19 Lantus Solostar U-100 Insulin 30 unit SUBCUT BEDTIME 01/03/19 01/03/19 atorvastatin 20 mg PO DAILY 01/03/19 01/03/19 dextroamphetamine-amphetamine 30 mg PO TID 01/03/19 01/03/19 morphine [MS Contin] 15 mg PO Q8H 01/05/19 01/05/19 Previous Rx's Medication Instructions Recorded hydrocodone-acetaminophen 1 tab PO TID #0 tab 06/27/18 morphine [MS Contin] 15 mg PO Q8H #30 tab 01/09/19 Allergies Allergy/AdvReac Type Severity Reaction Status Date / Time No Known Drug Allergies Allergy Verified 01/01/19 07:53 Review of Systems Constitutional Denies fever(s) Gastrointestinal Gastrointestinal: Denies abdominal pain Integumentary/Breasts Comments: Wound to right groin Neurologic Denies behavioral changes Psychiatric Denies behavioral changes [facility] Medical History Fibromyalgia (Acute) Depression (Chronic) Diabetes (Chronic) Fibromyalgia (Chronic) GERD (gastroesophageal reflux disease) (Chronic) Hyperlipidemia (Chronic) Hypothyroidism (Chronic) Meningioma (Chronic) Restless leg syndrome (Chronic) Sjogren's disease (Chronic) Sleep apnea (Chronic) Spinal stenosis, lumbar (Chronic) Venous stasis dermatitis of both lower extremities (Chronic) Social History household members: spouse and family Smoking Status: Former smoker alcohol intake: current Exam Initial Vital Signs Initial Vital Signs: Vital Signs Temperature 97.7 F 01/23/19 04:20 Pulse Rate 92 H 01/23/19 04:20 Respiratory Rate 16 01/23/19 04:20 Blood Pressure 133/91 H 01/23/19 04:20 Pulse Oximetry 97 01/23/19 04:20 Const General: cooperative, comfortable and well developed Orientation: alert and awake HENMT Head: normal to inspection and normocephalic Resp Effort & Inspection: normal respiratory effort Cardio Rate: regular rate Skin Other: Patient with a wound in the right lower quadrant. The skin over the area appears to be irritated from the wound VAC covering however no redness concerning for infection. Neuro General: alert and awake Course Vital Signs - 8 hr 01/23/19 04:20 Temperature 97.7 F Pulse Rate 92 H Respiratory Rate 16 Blood Pressure 133/91 H Pulse Oximetry 97 Medical Decision Making MDM Narrative Medical decision making narrative: We were able to get the better record appropriately placed into the wound VAC which stop the beeping. The wound VAC however is not providing suction most likely secondary to problems with the material used to hold the wound VAC on the skin. We do not have access to this here in the emergency department. The wound VAC was removed. The wound actually looks very well. Informed the patient that she will have to contact the wound Care company tomorrow to have them come out and reapply. She was given gauze in case that wound starts to drain. Discharge Plan Departure Patient Disposition: Home Clinical Impression: Encounter for wound re-check Activity Restrictions/Additional Instructions: On Thursday you need to contact the wound Care company that is managing the wound VAC to come out and provide you with more materials. You can also contact the surgery department for further evaluation. Prescriptions: No Action levothyroxine 112 mcg Capsule 112 mcg PO DAILY Qty: 0 RF: 0 omeprazole 20 mg Capsule,Delayed Release(Dr/Ec) 20 mg PO Q DAY Qty: 0 RF: 0 escitalopram oxalate [Lexapro] 20 mg Tablet 2 tab PO DAILY Qty: 0 RF: 0 cevimeline 30 mg Capsule 1 cap PO TID RF: 0 furosemide 20 mg Tablet 1 tab PO DAILY PRN (Reason: edema) RF: 0 lisinopril 2.5 mg Tablet 2.5 mg PO DAILY RF: 0 Novolog Flexpen U-100 Insulin 100 unit/mL Insulin Pen 4 - 6 unit SUBCUT AC RF: 0 hydrocodone-acetaminophen 5-325 mg Tablet 1 tab PO TID Qty: 0 RF: 0 Lantus Solostar U-100 Insulin 100 unit/mL (3 mL) insulin pen 30 unit SUBCUT BEDTIME RF: 0 dextroamphetamine-amphetamine 30 mg Tablet 30 mg PO TID RF: 0 atorvastatin 20 mg Tablet 20 mg PO DAILY RF: 0 morphine [MS Contin] 15 mg Tablet Extended Release 15 mg PO Q8H RF: 0 morphine [MS Contin] 15 mg tablet extended release 15 mg PO Q8H Qty: 30 RF: 0 Referrals: Brittany Warner MD [Primary Care Provider] -
== END 2019-01-23 05:08 | disposition home or self-care (01) ==
PROVIDERS: Emergency Provider Emergency Medicine; PCP Internal Medicine
DX: T85.9XXA Unspecified complication of internal prosthetic device, implant and graft, initial encounter (principal)
CPT/HCPCS: 99282

== ENCOUNTER → 2019-02-04 15:58 | Outpatient (CLI) | payer OTHER, SELFPAY ==
[2019-01-03 00:45] VITALS: BMI 29.1
--- NOTE | 2019-02-04 16:01 | DI.RAD.S_ITS ---
PROCEDURE: XR KNEE RT 3V INDICATIONS: RIGHT KNEE PAIN TECHNIQUE: 3 views of the knee were acquired. COMPARISON: None. FINDINGS: Bones: Mild tricompartment osteoarthritis is seen. No fractures or dislocations. No suspicious bony lesions. Soft tissues: No joint effusion. No suspicious soft tissue calcifications. IMPRESSION: Mild tricompartmental osteoarthritis. No fracture or dislocation. No significant joint effusion. Dictated by: Chalino Avina M.D. on 02/04/2019 at 16:39 Approved by: Chalino Avina M.D. on 02/04/2019 at 16:40
== END ==
PROVIDERS: PCP Internal Medicine; Visit Provider Internal Medicine
DX: M25.561 Pain in right knee (principal); M17.11 Unilateral primary osteoarthritis, right knee; E10.9 Type 1 diabetes mellitus without complications
CPT/HCPCS: 73562

== ENCOUNTER → 2019-02-16 16:10 | Outpatient (CLI) | payer OTHER, SELFPAY ==
[2019-01-03 00:45] VITALS: BMI 29.1
[2019-02-16 18:36] LABS: BUN Creatinine Ratio 26.7 (6-22); Blood Urea Nitrogen 16 mg/dL (7-17); Calcium 9.2 mg/dL (8.4-10.2); Carbon Dioxide 38 mmol/L (22-32); Chloride 96 mmol/L (98-107); Estimated Glomerular Filt Rate > 60.0 mL/min (>60); Glucose 138 mg/dL (80-110); HEMOLYSIS < 15 (0-50); Potassium 5.1 mmol/L (3.4-5.1); Sodium 140 mmol/L (137-145)
== END ==
PROVIDERS: Family Provider Internal Medicine; PCP Internal Medicine; Visit Provider Student in an Organized Health Care Education/Training Program
DX: R60.0 Localized edema (principal)
CPT/HCPCS: 36415; 80048

== ENCOUNTER 2019-03-22 16:30 | Inpatient (IN) | payer OTHER, SELFPAY ==
[2019-01-03 00:45] VITALS: BMI 29.1
[2019-03-22] VITALS (23 sets, daily range): BP systolic 83–163; BP diastolic 30–110; PULSE 87–137; RESP 19–30; TEMP 37.8–39.7; O2SAT 89–97; BMI 27.5; BMI 28.0
--- NOTE | 2019-03-22 16:39 | ED.FEVER ---
HPI - Fever General Chief Complaint: Fever Stated Complaint: FREEZING LEGS ACHE LIKE CRAZY Time Seen by Provider: 03/22/19 16:30 Source: patient Mode of arrival: ambulatory Limitations: no limitations History of Present Illness HPI Narrative: 68-year-old female here for fairly sudden onset of fevers, rigors, lower extremity tingling and pain. Patient thinks that she has cellulitis or left lower extremity. She states that this has been going on since the end of last year. She states that it ?comes and goes ?she states that her urine is dark. Denies any shortness of breath or chest pain. No other skin changes. Has not tried anything for symptoms prior to arrival. Related Data Home Medications Medication Instructions Recorded Confirmed escitalopram oxalate [Lexapro] 40 mg PO DAILY #0 03/16/10 03/22/19 omeprazole 20 mg PO DAILY #0 03/16/10 03/22/19 Novolog Flexpen U-100 Insulin 4 - 6 unit SUBCUT AC 06/24/18 01/03/19 cevimeline 30 mg PO TID 06/24/18 03/22/19 lisinopril 2.5 mg PO DAILY 06/24/18 03/22/19 Lantus Solostar U-100 Insulin 30 unit SUBCUT BEDTIME 01/03/19 01/03/19 atorvastatin 20 mg PO DAILY 01/03/19 03/22/19 dextroamphetamine-amphetamine 45 mg PO BID 01/03/19 03/22/19 alprazolam 0.5 mg PO DAILY 03/22/19 03/22/19 bupropion HCl 150 mg PO QAM 03/22/19 03/22/19 dextroamphetamine-amphetamine 30 mg PO DAILY 03/22/19 03/22/19 furosemide 40 mg PO DAILY 03/22/19 03/22/19 levothyroxine 112 mcg PO DAILY 03/22/19 03/22/19 potassium chloride 10 meq PO DAILY 03/22/19 03/22/19 Previous Rx's Medication Instructions Recorded hydrocodone-acetaminophen 1 tab PO TID #0 tab 06/27/18 morphine [MS Contin] 15 mg PO Q8H #30 tab 01/09/19 Allergies Allergy/AdvReac Type Severity Reaction Status Date / Time sulfamethoxazole Allergy Verified 03/22/19 16:37 [From Bactrim] trimethoprim [From Bactrim] Allergy Verified 03/22/19 16:37 Review of Systems Constitutional Reports chills, Reports fatigue, Reports fever(s) and Reports weakness ENT Ears, Nose, Mouth, and Throat: Denies throat swelling Cardiovascular Reports chest pain, Denies edema and Reports dyspnea Respiratory Denies cough, Reports dyspnea and Denies wheezing Gastrointestinal Gastrointestinal: Denies abdominal pain, Denies nausea and Denies vomiting Genitourinary Comments: Dark colored urine Musculoskeletal Comments: Bilateral leg pain Integumentary/Breasts Comments: Red changes to left lower extremity Neurologic Reports weakness Comments: Shaking to bilateral lower legs Endocrine Reports fatigue Hematologic/Lymphatic Denies easy bleeding and Denies easy bruising Allergic/Immunologic Denies urticaria, Denies throat swelling and Denies wheezing [facility] Medical History Fibromyalgia (Acute) Depression (Chronic) Diabetes (Chronic) Fibromyalgia (Chronic) GERD (gastroesophageal reflux disease) (Chronic) Hyperlipidemia (Chronic) Hypothyroidism (Chronic) Meningioma (Chronic) Restless leg syndrome (Chronic) Sjogren's disease (Chronic) Sleep apnea (Chronic) Spinal stenosis, lumbar (Chronic) Venous stasis dermatitis of both lower extremities (Chronic) Surgical History History of cholecystectomy (Resolved) History of lymph node biopsy (Acute) H/O total hysterectomy (Resolved) Social History household members: spouse and family Smoking Status: Former smoker alcohol intake: current Social History household members: spouse and family Smoking Status: Former smoker alcohol intake: current Exam Initial Vital Signs Initial Vital Signs: Vital Signs Temperature 101.0 F H 03/22/19 16:35 Pulse Rate 117 H 03/22/19 16:35 Respiratory Rate 24 03/22/19 16:35 Blood Pressure 143/110 H 03/22/19 16:35 Pulse Oximetry 97 03/22/19 16:35 Const General: cooperative, No comfortable (Uncomfortable) and well developed Orientation: alert, awake and oriented x3 HENMT Head: normal to inspection and normocephalic Eyes Pupils: PERRL Resp Effort & Inspection: not labored and tachypneic Auscultation: clear to auscultation bilaterally Cardio Rate: tachycardic Rhythm: regular rhythm Pulses: radial pulses present GI Palpation: soft, No firm and No tender Back/Spine/Pelvis Back: No CVA tenderness Skin Other: Right lower quadrant wound is well-healed. Patient does have redness to her left lower extremity that is not draining. Appears to be venous stasis changes. Neuro General: alert, awake and oriented x3 Cognition: normal cognition Speech: speech normal Sensory Exam: no sensory deficits noted Extrem General: normal to inspection, capillary refill normal and No edema Psych Appearance: grossly normal and well kempt Scores GCS [place] coma scale eye opening: Spontaneous [place] coma scale verbal response: Orientated [place] coma scale motor response: Obey commands [place] coma scale total score: 15 Course Orders Ordered: ED Orders 03/22/19 16:38 XR chest 1V Stat EKG-12 Lead Stat 03/22/19 16:50 Complete Blood Count AUTO DIFF Stat Comprehensive Metabolic Panel Stat Ketones (Beta-Hydroxybutyrate) Stat Lactate (Lactic Acid) Stat Lipase Stat Magnesium Stat Partial Thromboplastin Time Stat Phosphorous Stat Procalcitonin Stat Prothrombin Time INR Stat 03/22/19 17:07 Blood Culture Stat 03/22/19 17:30 Urinalysis and Microscopic Stat 03/22/19 17:47 Arterial Blood Gas Stat 03/23/19 05:00 Complete Blood Count AUTO DIFF Routine Comprehensive Metabolic Panel Routine Procalcitonin Routine Acetaminophen (Tylenol) 650 mg PO Q6HR PRN PRN Reason: As Needed for Fever/Mild Pain Hydrocodone Bitart/Acetaminophen ([place] 5/325) 1 tab PO Q8H PRN PRN Reason: Pain, Moderate (4-6) Alprazolam (Xanax) 0.5 mg PO DAILY [facility] Atorvastatin Calcium (Lipitor) 20 mg PO DAILY [facility] Bisacodyl (Dulcolax) 10 mg PO DAILY PRN PRN Reason: Constipation Bupropion HCl (Wellbutrin Xl) 150 mg PO DAILY [facility] Dextrose (D50w) 25 gm IV PRN PRN; Protocol PRN Reason: Hypoglycemia Enoxaparin Sodium (Lovenox) 40 mg SUBCUT DAILY [facility] Escitalopram Oxalate (Lexapro) 40 mg PO DAILY [facility] Fentanyl (Sublimaze) 25 mcg IV Q1HR PRN PRN Reason: Pain, Severe (7-10) Sodium Chloride (Normal Saline 0.9%) 2,463 mls @ 821 mls/hr 30 ml/kg infuse over 3 hr (2463 ml) IV NOW ONE Stop: 03/22/19 20:46 Last Infusion: 03/22/19 18:46 Dose: 821 mls/hr Admin: 03/22/19 17:50 Dose: 821 mls/hr Ceftriaxone Sodium/Dextrose (Rocephin) 1 gm in 50 mls @ 100 mls/hr IV Q24H [facility]CO JAVIER Magnesium Sulfate (Magnesium Sulfate) 2 gm in 50 mls @ 25 mls/hr IV NOW ONE Stop: 03/22/19 20:30 Piperacillin/Tazobactam/Dextrose (Zosyn) 4.5 gm in 100 mls @ 200 mls/hr IV Q6H FRANCISCO JAVIER Sodium Chloride (Normal Saline 0.9%) 1,000 mls @ 150 mls/hr IV CONT [facility]ANCISCO JAVIER Insulin Aspart (Novolog Flexpen) 4 unit SUBCUT AC FRANCISCO JAVIER Insulin Aspart (Novolog Flexpen) 0 unit SUBCUT ACHS FRANCISCO JAVIER; Protocol Insulin Glargine (Lantus Solostar (Pen)) 20 unit SUBCUT BEDTIME FRANCISCO JAVIER Levothyroxine Sodium (Synthroid) 112 mcg PO DAILY [facility]ANCISCO JAVIER Morphine Sulfate (Ms Contin) 15 mg PO Q8H [facility]ANCISCO JAVIER Ondansetron HCl (Zofran) 4 mg IV Q4HR PRN PRN Reason: Nausea And Vomiting Pantoprazole Sodium (Protonix) 20 mg PO DAILY [facility]CO JAVIER Discontinued Medications Acetaminophen (Tylenol) 975 mg PO NOW ONE Stop: 03/22/19 16:42 Last Admin: 03/22/19 16:54 Dose: Not Given Acetaminophen (Tylenol) 975 mg PO NOW ONE Stop: 03/22/19 16:56 Last Admin: 03/22/19 17:04 Dose: 975 mg Sodium Chloride (Normal Saline 0.9%) 1,000 mls @ 1,000 mls/hr IV BOLUS ONE Stop: 03/22/19 17:37 Last Infusion: 03/22/19 17:49 Dose: 0 mls/hr Admin: 03/22/19 17:04 Dose: 1,000 mls/hr Ceftriaxone Sodium/Dextrose (Rocephin) 1 gm in 50 mls @ 100 mls/hr IV NOW ONE Stop: 03/22/19 17:10 Last Infusion: 03/22/19 17:35 Dose: 0 mls/hr Admin: 03/22/19 17:04 Dose: 100 mls/hr Vancomycin HCl (Vancomycin) 1,000 mg in 200 mls @ 200 mls/hr IV NOW ONE Stop: 03/22/19 18:21 Last Infusion: 03/22/19 18:46 Dose: 0 mls/hr Admin: 03/22/19 17:36 Dose: 200 mls/hr Piperacillin/Tazobactam/Dextrose (Zosyn) 4.5 gm in 100 mls @ 200 mls/hr IV NOW ONE Stop: 03/22/19 18:30 Ketorolac Tromethamine (Toradol) 15 mg IV NOW ONE Stop: 03/22/19 17:23 Last Admin: 03/22/19 17:25 Dose: 15 mg Morphine Sulfate (Morphine) 4 mg IV NOW ONE Stop: 03/22/19 17:12 Last Admin: 03/22/19 17:13 Dose: 4 mg Morphine Sulfate (Morphine) 4 mg IV NOW ONE Stop: 03/22/19 17:32 Last Admin: 03/22/19 17:37 Dose: 4 mg Ondansetron HCl (Zofran) 4 mg IV NOW ONE Stop: 03/22/19 17:33 Last Admin: 03/22/19 17:36 Dose: 4 mg Vancomycin HCl (Vancomycin Per Pharmacy) 1 request MIS NOW ONE Stop: 03/22/19 18:27 Vital Signs - 8 hr 03/22/19 16:35 03/22/19 17:00 03/22/19 17:04 Temperature 101.0 F H 101 F H Pulse Rate 117 H 116 H Respiratory Rate 24 22 Blood Pressure 143/110 H Blood Pressure [Left Arm] 163/81 H Pulse Oximetry 97 93 03/22/19 17:05 03/22/19 17:13 03/22/19 17:15 Temperature 101 F H Pulse Rate 135 H 132 H Respiratory Rate 24 25 H Blood Pressure Blood Pressure [Left Arm] 161/78 H 132/64 Pulse Oximetry 94 92 03/22/19 17:25 03/22/19 17:30 03/22/19 17:45 Temperature 103.1 F H Pulse Rate 137 H 127 H Respiratory Rate 26 H 29 H Blood Pressure Blood Pressure [Left Arm] 108/52 L 89/44 L Pulse Oximetry 94 91 03/22/19 17:50 03/22/19 17:55 03/22/19 17:57 Temperature 102.9 F H 102.9 F H Pulse Rate 118 H Respiratory Rate 30 H Blood Pressure Blood Pressure [Left Arm] 96/42 L Pulse Oximetry 89 L 03/22/19 18:00 03/22/19 18:14 03/22/19 18:48 Temperature 103.1 F H Pulse Rate 111 H 109 H Respiratory Rate 26 H 25 H Blood Pressure 91/47 L Blood Pressure [Left Arm] 95/50 L Pulse Oximetry 93 91 03/22/19 18:55 Temperature 103.5 F H Pulse Rate 107 H Respiratory Rate 22 Blood Pressure 85/39 L Blood Pressure [Left Arm] Pulse Oximetry 92 MDM - Fever Lab Data Attestation: I reviewed the patient's lab results. Result diagrams: 03/22/19 16:50 03/22/19 16:50 Lab Results 03/22/19 03/22/19 03/22/19 Range/Units 16:50 16:50 16:50 WBC 1.2 L* (4.5-11.0) X10^3/uL RBC 4.69 (4.0-5.2) X10^6/uL Hgb 13.6 (12.0-16.0) g/dL Hct 40.9 (36-46) % MCV 87.1 (80-100) fL MCH 29.0 (26-34) PG MCHC 33.3 (30-36) % RDW 13.3 (11.6-14.8) % Plt Count 194 (150-400) X10^3/uL Neut % (Auto) Not Reportable Lymph % (Auto) Not Reportable [place] % (Auto) Not Reportable Eos % (Auto) Not Reportable Baso % (Auto) Not Reportable Lymph # (Auto) Not Reportable [place] # (Auto) Not Reportable Baso # (Auto) Not Reportable Total Counted 50 Seg Neutrophils % 52.0 (38-70) % Band Neutrophils % 18.0 H (3-7) % Lymphocytes % (Manual) 30.0 (25-45) % Neutrophils # (Manual) 840 L (8003-1610) /uL RBC Morphology Normal morphology PT 10.3 (10.1-12.7) SECONDS INR 0.9 (0.9-1.3) APTT 26 L D (26.4-36.2) SECONDS ABG pH (7.35-7.45) ABG pCO2 (35-45) mmHg ABG pO2 (80-100) mmHg ABG HCO3 (22-26) mmol/L ABG Total CO2 (21-31) mmol/L ABG O2 Saturation (95-100) % ABG Base Excess (-2-2) mmol/L FiO2 Sodium (137-145) mmol/L Potassium (3.4-5.1) mmol/L Chloride (98-107) mmol/L Carbon Dioxide (22-32) mmol/L BUN (7-17) mg/dL Creatinine (0.52-1.04) mg/dL Estimated GFR (>60) mL/min BUN/Creatinine Ratio (6-22) Glucose (80-110) mg/dL Lactate (0.7-2.1) mmol/L Calcium (8.4-10.2) mg/dL Phosphorus (2.8-4.1) mg/dL Magnesium (1.6-2.3) mg/dL Total Bilirubin (0.2-1.3) mg/dL AST (14-36) IU/L ALT (9-52) IU/L Alkaline Phosphatase (38-126) U/L Total Protein (6.3-8.2) g/dL Albumin (3.5-5.0) g/dL Globulin (1.7-4.1) g/dL Albumin/Globulin Ratio (1.0-2.8) Lipase (23-300) U/L Procalcitonin 0.18 (<0.5) ng/mL Urine Color Urine Appearance Urine pH (4.5-8.0) Ur Specific [place] (1.000-1.035) Urine Protein (Negative) Urine Glucose (UA) (Negative) g/dL Urine Ketones (NEGATIVE) Urine Occult Blood (Negative) Urine Nitrate (Negative) Urine Bilirubin (NEGATIVE) Urine Urobilinogen (0.2) E.U./dL Ur Leukocyte Esterase (NEGATIVE) Urine RBC (0-5/HPF) Urine WBC (0-5/HPF) Urine Bacteria (None) Ur Culture Indicated? Micro UA Comment Ketones (<0.27) mmol/L 03/22/19 03/22/19 03/22/19 Range/Units 16:50 16:50 16:50 WBC (4.5-11.0) X10^3/uL RBC (4.0-5.2) X10^6/uL Hgb (12.0-16.0) g/dL Hct (36-46) % MCV (80-100) fL MCH (26-34) PG MCHC (30-36) % RDW (11.6-14.8) % Plt Count (150-400) X10^3/uL Neut % (Auto) Lymph % (Auto) [place] % (Auto) Eos % (Auto) Baso % (Auto) Lymph # (Auto) [place] # (Auto) Baso # (Auto) Total Counted Seg Neutrophils % (38-70) % Band Neutrophils % (3-7) % Lymphocytes % (Manual) (25-45) % Neutrophils # (Manual) (4329-9631) /uL RBC Morphology PT (10.1-12.7) SECONDS INR (0.9-1.3) APTT (26.4-36.2) SECONDS ABG pH (7.35-7.45) ABG pCO2 (35-45) mmHg ABG pO2 (80-100) mmHg ABG HCO3 (22-26) mmol/L ABG Total CO2 (21-31) mmol/L ABG O2 Saturation (95-100) % ABG Base Excess (-2-2) mmol/L FiO2 Sodium 140 (137-145) mmol/L Potassium 5.2 H (3.4-5.1) mmol/L Chloride 99 (98-107) mmol/L Carbon Dioxide 33 H (22-32) mmol/L BUN 18 H (7-17) mg/dL Creatinine 0.50 L (0.52-1.04) mg/dL Estimated GFR > 60.0 (>60) mL/min BUN/Creatinine Ratio 36.0 H (6-22) Glucose 113 H (80-110) mg/dL Lactate 3.3 H (0.7-2.1) mmol/L Calcium 9.4 (8.4-10.2) mg/dL Phosphorus 4.5 H (2.8-4.1) mg/dL Magnesium 1.4 L (1.6-2.3) mg/dL Total Bilirubin 1.0 (0.2-1.3) mg/dL AST 131 H (14-36) IU/L ALT 43 (9-52) IU/L Alkaline Phosphatase 98 (38-126) U/L Total Protein 7.8 (6.3-8.2) g/dL Albumin 4.1 (3.5-5.0) g/dL Globulin 3.7 (1.7-4.1) g/dL Albumin/Globulin Ratio 1.1 (1.0-2.8) Lipase 29 (23-300) U/L Procalcitonin (<0.5) ng/mL Urine Color Urine Appearance Urine pH (4.5-8.0) Ur Specific [place] (1.000-1.035) Urine Protein (Negative) Urine Glucose (UA) (Negative) g/dL Urine Ketones (NEGATIVE) Urine Occult Blood (Negative) Urine Nitrate (Negative) Urine Bilirubin (NEGATIVE) Urine Urobilinogen (0.2) E.U./dL Ur Leukocyte Esterase (NEGATIVE) Urine RBC (0-5/HPF) Urine WBC (0-5/HPF) Urine Bacteria (None) Ur Culture Indicated? Micro UA Comment Ketones 0.13 (<0.27) mmol/L 03/22/19 03/22/19 Range/Units 17:30 17:47 WBC (4.5-11.0) X10^3/uL RBC (4.0-5.2) X10^6/uL Hgb (12.0-16.0) g/dL Hct (36-46) % MCV (80-100) fL MCH (26-34) PG MCHC (30-36) % RDW (11.6-14.8) % Plt Count (150-400) X10^3/uL Neut % (Auto) Lymph % (Auto) [place] % (Auto) Eos % (Auto) Baso % (Auto) Lymph # (Auto) [place] # (Auto) Baso # (Auto) Total Counted Seg Neutrophils % (38-70) % Band Neutrophils % (3-7) % Lymphocytes % (Manual) (25-45) % Neutrophils # (Manual) (4617-2882) /uL RBC Morphology PT (10.1-12.7) SECONDS INR (0.9-1.3) APTT (26.4-36.2) SECONDS ABG pH 7.41 (7.35-7.45) ABG pCO2 44.2 (35-45) mmHg ABG pO2 43 L* (80-100) mmHg ABG HCO3 28 H (22-26) mmol/L ABG Total CO2 30 (21-31) mmol/L ABG O2 Saturation 79 L* (95-100) % ABG Base Excess 4.0 H (-2-2) mmol/L FiO2 21 Sodium (137-145) mmol/L Potassium (3.4-5.1) mmol/L Chloride (98-107) mmol/L Carbon Dioxide (22-32) mmol/L BUN (7-17) mg/dL Creatinine (0.52-1.04) mg/dL Estimated GFR (>60) mL/min BUN/Creatinine Ratio (6-22) Glucose (80-110) mg/dL Lactate (0.7-2.1) mmol/L Calcium (8.4-10.2) mg/dL Phosphorus (2.8-4.1) mg/dL Magnesium (1.6-2.3) mg/dL Total Bilirubin (0.2-1.3) mg/dL AST (14-36) IU/L ALT (9-52) IU/L Alkaline Phosphatase (38-126) U/L Total Protein (6.3-8.2) g/dL Albumin (3.5-5.0) g/dL Globulin (1.7-4.1) g/dL Albumin/Globulin Ratio (1.0-2.8) Lipase (23-300) U/L Procalcitonin (<0.5) ng/mL Urine Color Yellow Urine Appearance Clear Urine pH 7.0 (4.5-8.0) Ur Specific [place] 1.010 (1.000-1.035) Urine Protein Negative (Negative) Urine Glucose (UA) Negative (Negative) g/dL Urine Ketones Negative (NEGATIVE) Urine Occult Blood Negative (Negative) Urine Nitrate Negative (Negative) Urine Bilirubin Negative (NEGATIVE) Urine Urobilinogen 0.2 (0.2) E.U./dL Ur Leukocyte Esterase Negative (NEGATIVE) Urine RBC None seen (0-5/HPF) Urine WBC None seen (0-5/HPF) Urine Bacteria None seen (None) Ur Culture Indicated? Cult not indicated Micro UA Comment Microscopic normal Ketones (<0.27) mmol/L Point of Care Testing Glucose POC 140 Imaging Data Chest x-ray: Radiologist's impression: [address] [address] XRay Report Signed Patient: Alissa Kirby AMR#: [id number] : [id number]:[id number] Age/Sex: 68 / FDate of Service: 03/22/19 Loc: ED Accession Number: [id number] Procedure: XR chest 1V Ordering Provider: Yuval Tomas D.O. PROCEDURE: XR CHEST 1V INDICATIONS: suspected sepsis TECHNIQUE: One view of the chest was acquired. COMPARISON: [facility], AARON, XR CHEST FOR PICC 1V, 01/03/2019, 13:04. FINDINGS: Surgical changes and devices: None. Lungs and pleura: Mild diffusely coarse interstitial markings. Lungs are otherwise clear. No pleural effusions or pneumothorax. Mediastinum: Mediastinal contours appear normal. Heart size is normal. Bones and chest wall: No suspicious bony lesions. Overlying soft tissues appear unremarkable. IMPRESSION: No focal consolidation. Diffusely coarse interstitial markings are chronic. Dictated by: Cary Talley M.D. on 03/22/2019 at 17:31 Approved by: Cary Talley M.D. on 03/22/2019 at 17:39 ECG Data Attestation: I personally reviewed and interpreted this ECG as follows: Prior ECG tracings: not available for review Interpretation: Atrial flutter Ventricular rate of 140 Normal axis Normal QRS Nonspecific ST T wave changes MDM Narrative Medical decision making narrative: Patient arrive febrile, riders, tachycardic. She was unable to urinate at bedside commode so a Bah was placed with return of 600 cc urine. Chest x-ray shows no signs of infection. Urine does not show signs of infection. She does have redness in her left lower extremity which could be the cause of her symptoms however this does appear to be more chronic venous stasis changes. She has no signs of meningitis. Her abdomen is soft. No other skin changes. Patient denies IV drug use. Low suspicion for endocarditis. The patient was given antibiotics here in the emergency department. Fluids per sepsis protocol. Blood cultures were obtained. Discussed the case with Dr. Gong with internal medicine who accepts the patient for further evaluation and treatment. Unsure the exact etiology of her fever today. She does have leukopenia however does not have risk for this. Is not currently on chemotherapy. No other immunosuppression. Patient is not in DKA. EKG shows atrial flutter. Will hold on any rate control medication and treat the fever and the underlying sepsis. Discussed admission with the patient her at bedside. They expressed understanding and agreement. Critical Care Time Critical Care Time: Yes Total Critical Care Time: 30 Attestation: The high probability of a clinically significant, sudden or life threatening deterioration of the cardiovascular/immunologic system(s) required my full and direct attention, intervention and personal management. The aggregate critical care time was 30 minutes. This time is in addition to time spent performing reported procedures but includes the following: [] Data Review and interpretation [] Patient assessment and monitoring of vital signs [] Documentation [] Medication orders and management Discharge Plan Departure Patient Disposition: Admitted As Inpatient Clinical Impression: Fever of unknown origin Sepsis Qualifiers: Sepsis type: sepsis due to unspecified organism Sepsis acute organ dysfunction status: unspecified Qualified Code(s): A41.9 - Sepsis, unspecified organism Leukopenia Qualifiers: Leukopenia type: unspecified Qualified Code(s): D72.819 - Decreased white blood cell count, unspecified Discharge Date/Time: 03/22/19 18:40 Interventions: ED Discharge Assessment Last Done: 03/22/19 18:48 Admit Date/Time: 03/22/19 18:30 Admit Provider: William Gong
[2019-03-22] MEDS: SODIUM CHLORIDE 0.9% 1,000 ML 1000 ML IV (17:04)
[2019-03-22] MEDS: CEFTRIAXONE 1 GM/50 ML FROZ.PIGGY IV (17:04)
[2019-03-22] MEDS: ACETAMINOPHEN 325 MG TABLET 975 MG PO (17:04)
[2019-03-22] MEDS: MORPHINE 4 MG/ML INJ IV ×2 (17:13→17:37)
[2019-03-22 17:14] LABS: Hematocrit 40.9 % (36-46); Hemoglobin 13.6 g/dL (12.0-16.0); Mean Corpuscular HGB Conc 33.3 % (30-36); Mean Corpuscular Volume 87.1 fL (80-100); Platelet Count 194 X10^3/uL (150-400); Red Blood Cell Count 4.69 X10^6/uL (4.0-5.2); Red Cell Distribution Width 13.3 % (11.6-14.8)
[2019-03-22 17:15] LABS: Add Manual Diff / Slide Review YES
[2019-03-22 17:17] LABS: White Blood Cell Count 1.2 X10^3/uL (4.5-11.0)
[2019-03-22 17:18] LABS: INR 0.9 (0.9-1.3); Prothrombin Time 10.3 SECONDS (10.1-12.7)
[2019-03-22 17:21] LABS: PTT Partial Thromboplastin Tim 26 SECONDS (26.4-36.2)
[2019-03-22 17:24] LABS: Alanine Aminotransferase 43 IU/L (9-52); Albumin 4.1 g/dL (3.5-5.0); Albumin Globulin Ratio 1.1 (1.0-2.8); Alkaline Phosphatase 98 U/L (38-126); Aspartate Aminotransferase 131 IU/L (14-36); Blood Urea Nitrogen 18 mg/dL (7-17); Calcium 9.4 mg/dL (8.4-10.2); Carbon Dioxide 33 mmol/L (22-32); Chloride 99 mmol/L (98-107); Estimated Glomerular Filt Rate > 60.0 mL/min (>60); Globulin 3.7 g/dL (1.7-4.1); Glucose 113 mg/dL (80-110); Lipase 29 U/L (23-300); Magnesium 1.4 mg/dL (1.6-2.3); Phosphorous 4.5 mg/dL (2.8-4.1); Potassium 5.2 mmol/L (3.4-5.1); Sodium 140 mmol/L (137-145); Total Protein 7.8 g/dL (6.3-8.2)
[2019-03-22 17:25] LABS: HEMOLYSIS 140 (0-50); Lactate (Lactic Acid) 3.3 mmol/L (0.7-2.1)
[2019-03-22] MEDS: KETOROLAC 60 MG/2 ML VIAL 15 MG IV (17:25)
[2019-03-22 17:26] LABS: Ketones (Beta-Hydroxybutyrate) 0.13 mmol/L (<0.27)
[2019-03-22 17:34] LABS: Neutrophils Absolute Manual 840 /uL (3000-5900); RBC Morphology Normal Morphology; Total Cells Counted 50
[2019-03-22] MEDS: ONDANSETRON 4 MG/2 ML INJ IV (17:36)
[2019-03-22] MEDS: VANCOMYCIN 1,000 MG/200 ML PIGGYBACK 200 MG IV (17:36)
[2019-03-22 17:38] LABS: Bacteria Urine None Seen; RBC Urine None Seen (0-5/HPF); WBC Urine None Seen (0-5/HPF)
[2019-03-22 17:40] LABS: Appearance Urine UA CLEAR; Bilirubin Urine UA NEGATIVE (NEGATIVE); Color Urine UA YELLOW; Glucose Urine UA NEGATIVE (Negative); Ketones Urine UA NEGATIVE (NEGATIVE); Leukocyte Esterase Urine UA NEGATIVE (NEGATIVE); Nitrite Urine UA NEGATIVE (Negative); Occult Blood Urine UA NEGATIVE (Negative); Protein Urine UA NEGATIVE (Negative); Urobilinogen Urine UA 0.2 E.U./dL (0.2)
[2019-03-22 17:46] LABS: Procalcitonin 0.18 ng/mL (<0.5)
[2019-03-22 17:48] LABS: Culture Indicated Urine Cult Not Indicated; Urine Comments Microscopic Normal
[2019-03-22] MEDS: SODIUM CHLORIDE 0.9% 821 ML IV (17:50)
--- NOTE | 2019-03-22 18:01 | PC.NURSE ---
Summary note: Patient arrived to ED in wheelchair unable to sit still or transfer independently. Spouse present. States her legs hurt 03/26, sudden onset 2 hours prior to arrival. Pt is type 1 diabetic with previous history of sepsis. Pt brought into ED immediately and staff attempted to get her in a hospital gown and placed on cardiac monitoring, but patient refused due to being too cold. Pt kept stating she had to go to the bathroom immediately. Helped her onto commode, but she could not go. Took over 20 minutes to get patient onto stretcher in order to begin care. Bah placed at bedside secondary to 500+ mL of retained urine in the bladder. Patient able to lay still after placement of Bah and pain analgesia administered.
[2019-03-22 18:09] LABS: HCO3 ABG 28 mmol/L (22-26); PCO2 ABG 44.2 mmHg (35-45); PO2 ABG 43 mmHg (80-100); TCO2 ABG 30 mmol/L (21-31); pH ABG 7.41 (7.35-7.45)
[2019-03-22 18:11] LABS: Oxygen Saturation ABG 79 % (95-100)
[2019-03-22 18:12] LABS: Fractionated Inspired Oxygen 21
--- NOTE | 2019-03-22 18:42 | PM.HP.1 ---
History of Present Illness Date Patient Seen: 03/22/19 Time Patient Seen: 18:10 Chief complaint: FREEZING LEGS ACHE LIKE CRAZY Narrative: Patient is a 68-year-old female with history of type 1 diabetes, fibromyalgia, venous stasis dermatitis, Sjogren syndrome presented to the emergency department due to acutely not feeling well. Earlier this afternoon she had sudden onset of rigors, weakness and fever. Temp was up to 103.1? in the ER. She was also tachycardic with heart rate in the 130s, initially hypertensive but dropped her BP to 90's systolic, respiratory rate 25-30, and room air pulse ox 89%. Also noted in atrial flutter rhythm with RVR and nonspecific ST and T-wave changes on EKG. She had labs and blood cultures drawn. She was resuscitated with normal saline 30 milliliters/kilogram and initiated wide-spectrum antibiotics. Labs notable for leukopenia with total WBC 1.2, lactate elevated at 3.3, magnesium low 1.4, potassium high 5.2 with creatinine 0.5, glucose 113, AST elevated 131 with normal bilirubin, procalcitonin 0.18. Urinalysis normal. Chest x-ray without infiltrate. Venous blood gas with pH 7.41. She did have 600 cc urinary retention and Bah catheter placed in the ER. Patient denies headache, sinus pain, sore throat, cough, abdominal pain, or urinary pain. She has had nausea without vomiting. She complained to her of a few raised but not painful bumps above her elbow. She has chronic venous stasis of the left lower leg but has not noticed significant change in appearance of the skin. In December of this year she was admitted with sepsis due to acute cholangitis and had her gallbladder removed. She also had a right-sided seroma as a result of lymph node biopsy which was incised and drained and subsequently healed with wound VAC. Patient History Medical History (Updated 03/22/19 @ 18:02 by Yuval Tomas DO) Fibromyalgia (Acute) Depression (Chronic) Diabetes (Chronic) Fibromyalgia (Chronic) GERD (gastroesophageal reflux disease) (Chronic) Hyperlipidemia (Chronic) Hypothyroidism (Chronic) Meningioma (Chronic) Restless leg syndrome (Chronic) Sjogren's disease (Chronic) Sleep apnea (Chronic) Spinal stenosis, lumbar (Chronic) Venous stasis dermatitis of both lower extremities (Chronic) Surgical History (Updated 03/22/19 @ 18:52 by William Gong MD) History of cholecystectomy (Resolved) History of lymph node biopsy (Acute) H/O total hysterectomy (Resolved) Social History household members: spouse and family Smoking Status: Former smoker alcohol intake: current Family & Social History Social History: household members spouse,family Safety & Behavioral: Feels Safe in Current Yes Environment Tobacco & Substance use: Tobacco type cigarettes Smoking Status Former smoker alcohol intake current alcohol intake frequency a few times a month Substance Use Type does not use Meds Home Medications Medication Instructions Recorded Confirmed Type escitalopram oxalate [Lexapro] 40 mg PO DAILY #0 03/16/10 03/22/19 History omeprazole 20 mg PO DAILY #0 03/16/10 03/22/19 History Novolog Flexpen U-100 Insulin 4 - 6 unit SUBCUT AC 06/24/18 01/03/19 History cevimeline 30 mg PO TID 06/24/18 03/22/19 History lisinopril 2.5 mg PO DAILY 06/24/18 03/22/19 History hydrocodone-acetaminophen 1 tab PO TID #0 tab 06/27/18 03/22/19 Rx Lantus Solostar U-100 Insulin 30 unit SUBCUT BEDTIME 01/03/19 01/03/19 History atorvastatin 20 mg PO DAILY 01/03/19 03/22/19 History dextroamphetamine-amphetamine 45 mg PO BID 01/03/19 03/22/19 History morphine [MS Contin] 15 mg PO Q8H #30 tab 01/09/19 03/22/19 Rx alprazolam 0.5 mg PO DAILY 03/22/19 03/22/19 History bupropion HCl 150 mg PO QAM 03/22/19 03/22/19 History dextroamphetamine-amphetamine 30 mg PO DAILY 03/22/19 03/22/19 History furosemide 40 mg PO DAILY 03/22/19 03/22/19 History levothyroxine 112 mcg PO DAILY 03/22/19 03/22/19 History potassium chloride 10 meq PO DAILY 03/22/19 03/22/19 History Allergies Allergy/AdvReac Type Severity Reaction Status Date / Time sulfamethoxazole Allergy Verified 03/22/19 16:37 [From Bactrim] trimethoprim [From Bactrim] Allergy Verified 03/22/19 16:37 Review of Systems Review of Systems All systems reviewed & are unremarkable except as noted in HPI and below Exam Vital Signs (past 8 hours): - 03/22/19 16:35 03/22/19 17:00 03/22/19 17:04 Temperature 101.0 F H 101 F H Pulse Rate 117 H 116 H Respiratory Rate 24 22 Blood Pressure 143/110 H Blood Pressure [Left Arm] 163/81 H Pulse Oximetry 97 93 03/22/19 17:05 03/22/19 17:13 03/22/19 17:15 Temperature 101 F H Pulse Rate 135 H 132 H Respiratory Rate 24 25 H Blood Pressure Blood Pressure [Left Arm] 161/78 H 132/64 Pulse Oximetry 94 92 03/22/19 17:25 03/22/19 17:30 03/22/19 17:45 Temperature 103.1 F H Pulse Rate 137 H 127 H Respiratory Rate 26 H 29 H Blood Pressure Blood Pressure [Left Arm] 108/52 L 89/44 L Pulse Oximetry 94 91 03/22/19 17:50 03/22/19 17:55 03/22/19 17:57 Temperature 102.9 F H 102.9 F H Pulse Rate 118 H Respiratory Rate 30 H Blood Pressure Blood Pressure [Left Arm] 96/42 L Pulse Oximetry 89 L 03/22/19 18:00 03/22/19 18:14 Temperature 103.1 F H Pulse Rate 111 H Respiratory Rate 26 H Blood Pressure Blood Pressure [Left Arm] 95/50 L Pulse Oximetry 93 Oxygen Delivery Method Nasal Cannula Oxygen Flow Rate 2 Narrative Exam Narrative: GENERAL: Lethargic female who has difficulty keeping eyes open and communicating HEAD: Atraumatic. Normocephalic. EYES: Pupils equal, round and reactive. Extraocular motions intact. No scleral icterus. No conjunctiva injection or drainage. OROPHARYNX: Very dry oral mucosa NECK: Trachea midline. No lymphadenopathy. CARDIOVASCULAR: Tachycardic, regular rhythm, no murmur or rub RESPIRATORY: Clear to auscultation bilaterally. GASTROINTESTINAL: Abdomen nondistended, soft, diffusely tender only to deep palpation without guarding or rebound, no liver or spleen enlargement, no abdominal mass EXTREMITIES: Chronic venous stasis changes of the left lower extremity, without any obvious new erythema, without drainage. There are a few very subtle bumps above the left elbow which are not tender and not erythematous. NEUROLOGICAL: Nonfocal Skin: No rash, no petechiae Objective Labs Result Diagrams: 03/22/19 16:50 03/22/19 16:50 Labs: Laboratory Results - last 24 hr 03/22/19 03/22/19 03/22/19 16:50 16:50 16:50 WBC 1.2 L* RBC 4.69 Hgb 13.6 Hct 40.9 MCV 87.1 MCH 29.0 MCHC 33.3 RDW 13.3 Plt Count 194 Neut % (Auto) Not Reportable Lymph % (Auto) Not Reportable [place] % (Auto) Not Reportable Eos % (Auto) Not Reportable Baso % (Auto) Not Reportable Lymph # (Auto) Not Reportable [place] # (Auto) Not Reportable Baso # (Auto) Not Reportable Total Counted 50 Seg Neutrophils % 52.0 Band Neutrophils % 18.0 H Lymphocytes % (Manual) 30.0 Neutrophils # (Manual) 840 L RBC Morphology Normal morphology PT 10.3 INR 0.9 APTT 26 L D ABG pH ABG pCO2 ABG pO2 ABG HCO3 ABG Total CO2 ABG O2 Saturation ABG Base Excess FiO2 Sodium Potassium Chloride Carbon Dioxide BUN Creatinine Estimated GFR BUN/Creatinine Ratio Glucose Lactate Calcium Phosphorus Magnesium Total Bilirubin AST ALT Alkaline Phosphatase Total Protein Albumin Globulin Albumin/Globulin Ratio Lipase Procalcitonin 0.18 Urine Color Urine Appearance Urine pH Ur Specific [place] Urine Protein Urine Glucose (UA) Urine Ketones Urine Occult Blood Urine Nitrate Urine Bilirubin Urine Urobilinogen Ur Leukocyte Esterase Urine RBC Urine WBC Urine Bacteria Ur Culture Indicated? Micro UA Comment Ketones 03/22/19 03/22/19 03/22/19 16:50 16:50 16:50 WBC RBC Hgb Hct MCV MCH MCHC RDW Plt Count Neut % (Auto) Lymph % (Auto) [place] % (Auto) Eos % (Auto) Baso % (Auto) Lymph # (Auto) [place] # (Auto) Baso # (Auto) Total Counted Seg Neutrophils % Band Neutrophils % Lymphocytes % (Manual) Neutrophils # (Manual) RBC Morphology PT INR APTT ABG pH ABG pCO2 ABG pO2 ABG HCO3 ABG Total CO2 ABG O2 Saturation ABG Base Excess FiO2 Sodium 140 Potassium 5.2 H Chloride 99 Carbon Dioxide 33 H BUN 18 H Creatinine 0.50 L Estimated GFR > 60.0 BUN/Creatinine Ratio 36.0 H Glucose 113 H Lactate 3.3 H Calcium 9.4 Phosphorus 4.5 H Magnesium 1.4 L Total Bilirubin 1.0 AST 131 H ALT 43 Alkaline Phosphatase 98 Total Protein 7.8 Albumin 4.1 Globulin 3.7 Albumin/Globulin Ratio 1.1 Lipase 29 Procalcitonin Urine Color Urine Appearance Urine pH Ur Specific [place] Urine Protein Urine Glucose (UA) Urine Ketones Urine Occult Blood Urine Nitrate Urine Bilirubin Urine Urobilinogen Ur Leukocyte Esterase Urine RBC Urine WBC Urine Bacteria Ur Culture Indicated? Micro UA Comment Ketones 0.13 03/22/19 03/22/19 17:30 17:47 WBC RBC Hgb Hct MCV MCH MCHC RDW Plt Count Neut % (Auto) Lymph % (Auto) [place] % (Auto) Eos % (Auto) Baso % (Auto) Lymph # (Auto) [place] # (Auto) Baso # (Auto) Total Counted Seg Neutrophils % Band Neutrophils % Lymphocytes % (Manual) Neutrophils # (Manual) RBC Morphology PT INR APTT ABG pH 7.41 ABG pCO2 44.2 ABG pO2 43 L* ABG HCO3 28 H ABG Total CO2 30 ABG O2 Saturation 79 L* ABG Base Excess 4.0 H FiO2 21 Sodium Potassium Chloride Carbon Dioxide BUN Creatinine Estimated GFR BUN/Creatinine Ratio Glucose Lactate Calcium Phosphorus Magnesium Total Bilirubin AST ALT Alkaline Phosphatase Total Protein Albumin Globulin Albumin/Globulin Ratio Lipase Procalcitonin Urine Color Yellow Urine Appearance Clear Urine pH 7.0 Ur Specific [place] 1.010 Urine Protein Negative Urine Glucose (UA) Negative Urine Ketones Negative Urine Occult Blood Negative Urine Nitrate Negative Urine Bilirubin Negative Urine Urobilinogen 0.2 Ur Leukocyte Esterase Negative Urine RBC None seen Urine WBC None seen Urine Bacteria None seen Ur Culture Indicated? Cult not indicated Micro UA Comment Microscopic normal Ketones Assessment & Plan Assessment & Plan narrative: 1. Severe sepsis -patient presenting with classic signs of sepsis with fever, rigors, tachycardia, hypotension, tachypnea, hypoxia, leukopenia, lactic acidosis -etiology not evident on exam although patient has chronic venous stasis which may be a source of Staph bacteremia, chest x-ray normal, urinalysis normal -treatment: Volume resuscitation 30 milliliters/kilogram in ED, broad-spectrum antibiotic vancomycin, Zosyn, Rocephin pending blood culture results -repeat 4 hour lactic acid level pending -fabricem. Labs: CBC, CMP, repeat procalcitonin 2. Acute transaminitis, likely associated with sepsis -AST 131, normal ALT, normal bilirubin -abdominal exam is fairly benign -repeat LFTs in a.m. and consider abdominal ultrasound for worsening values 3. Acute urinary retention -600 cc urinary retention in the ER -maintain Bah catheter and remove per nurse protocol 4. Hypomagnesemia -magnesium sulfate 2 g IV -repeat magnesium level in a.m. 5. Atrial flutter with RVR -correct magnesium deficiency -treat sepsis 6. Type 1 diabetes -glucose 113 on admission -ordered Lantus 20 units HS (reduced from her routine 30 units), NovoLog 4 units t.i.d. with meals, NovoLog low-dose sliding scale 7. Hypothyroidism -continue routine thyroid replacement 8. Chronic pain, opioid dependency, benzo dependence -continue patient's routine morphine ER and hydrocodone, continue her routine alprazolam q.a.m., continue antidepressants -fentanyl 25 mcg as needed for increased pain and patient may not be able to take routine pain meds due to nausea Patient is critically ill requiring management in intensive care unit due to severe sepsis. Total critical care floor management time of 1 hour during today's encounter.
[2019-03-22] MEDS: PIPERACILLIN-TAZO 4.5 GM/100 ML FROZ.PIGGY IV ×2 (19:02→23:50)
[2019-03-22 19:05] LABS: Reflexed Lactate in 2 Hours Y
--- NOTE | 2019-03-22 19:34 | PC.NURSE ---
Addendum entered by Aye Edgar R.N. 03/22/19 21:46: 2130 - NS bolus initiated in ER complete. BP 88/41 Map 58, HR 94, Temp 100.2, 93% on 3L. NS now infusing at 150cc/hr. Urine output approximately 175cc since 1899. BLOOD AND PLASMA LABORATORY ASSISTANT, Rebeca, notified of above. Reviewed lactate lab results and current IVF orders. No new orders obtained. Pt sister at bedside, reports hx of recent lymphectomy and cholecystectomy all incision sites closed without erythema. Original Note: 184 - Pt to room from ER. Transfer via sliderboard. Bolus infusing, per GEOGRAPHY DEPARTMENT CHAIR, 1st unit. Zosyn infusion initiated. Pt skin red, flushed and hot to touch. Temp 103.5. One bath blanket in place. Additional blankets removed. Pt drowsy, dozing with conversation but awakens to light stimuli. Pt , Gene, assist with admission questions. Pt oriented to room and routine. Bed alarm on.
[2019-03-22 19:36] LABS: Lactate 2HR (Lactic Acid Rflx) 1.7 mmol/L (0.7-2.1)
[2019-03-22] MEDS: MAGNESIUM SULFATE 2 GM/50 ML PIGGYBACK IV (19:39)
[2019-03-22] MEDS: MORPHINE ER 15 MG TABLET PO (20:36)
[2019-03-22] MEDS: SODIUM CHLORIDE 0.9% 1,000 ML 150 ML IV (21:24)
[2019-03-22] MEDS: INSULIN GLARGINE 100 UNIT/ML 3ML PEN 20 UNIT SUBCUT (21:39)
[2019-03-22] MEDS: INSULIN ASPART 100 UNIT/ML INSULN PEN SUBCUT (21:39)
[2019-03-22 23:02] LABS: Hematocrit 34.7 % (36-46); Hemoglobin 11.8 g/dL (12.0-16.0); Mean Corpuscular HGB Conc 34.1 % (30-36); Mean Corpuscular Hemoglobin 29.4 PG (26-34); Mean Corpuscular Volume 86.1 fL (80-100); Platelet Count 127 X10^3/uL (150-400); Red Blood Cell Count 4.03 X10^6/uL (4.0-5.2); Red Cell Distribution Width 13.3 % (11.6-14.8)
[2019-03-22 23:02] LABS: Alanine Aminotransferase 304 IU/L (9-52); Albumin 2.8 g/dL (3.5-5.0); Alkaline Phosphatase 121 U/L (38-126); Aspartate Aminotransferase 654 IU/L (14-36); BUN Creatinine Ratio 27.1 (6-22); Bilirubin Total 0.8 mg/dL (0.2-1.3); Blood Urea Nitrogen 19 mg/dL (7-17); Calcium 7.8 mg/dL (8.4-10.2); Carbon Dioxide 29 mmol/L (22-32); Chloride 104 mmol/L (98-107); Estimated Glomerular Filt Rate > 60.0 mL/min (>60); Globulin 2.9 g/dL (1.7-4.1); Glucose 199 mg/dL (80-110); HEMOLYSIS < 15 (0-50); Potassium 3.7 mmol/L (3.4-5.1); Sodium 136 mmol/L (137-145); Total Protein 5.7 g/dL (6.3-8.2)
[2019-03-22 23:04] LABS: White Blood Cell Count 1.9 X10^3/uL (4.5-11.0)
[2019-03-22] MEDS: NOREPINEPHRINE 4 MG in DEXTROSE 5% IN WATER 250 ML 30.48 ML IV (23:24)
[2019-03-22 23:34] LABS: Neutrophils Absolute Manual 1558 /uL (3000-5900); RBC Morphology Normal Morphology; Total Cells Counted 100
[2019-03-22] MEDS: ACETAMINOPHEN 325 MG TABLET 650 MG PO (23:48)
[2019-03-23] VITALS (22 sets, daily range): BP systolic 83–126; BP diastolic 41–66; PULSE 65–90; RESP 13–24; TEMP 36.6–38.6; O2SAT 90–98
--- NOTE | 2019-03-23 | DI.RAD.S_ITS ---
PROCEDURE: XR CHEST 1V INDICATIONS: PICC line placement TECHNIQUE: One view of the chest was acquired. COMPARISON: [facility], CR, XR CHEST 1V, 03/22/2019, 16:57. [facility], CR, XR CHEST FOR PICC 1V, 01/03/2019, 13:04. FINDINGS: Surgical changes and devices: PICC line from right sided approach extends into the distal SVC at the atrial caval junction Lungs and pleura: Lungs are abnormal with interstitial prominence similar to that present 01/03/19 but new from the comparison study 03/22/19 one day ago.. No pleural effusions or pneumothorax. Mediastinum: Mediastinal contours appear normal. Heart size is normal. Bones and chest wall: No suspicious bony lesions. Overlying soft tissues appear unremarkable. IMPRESSION: PICC line in normal position. Reduced inspiratory volume. Interstitial prominence through the lung parenchyma diffusely may reflect acute cardiogenic pulmonary edema but acute alveolar edema with any etiology would produce this appearance. Cardiomegaly currently is not found. Dictated by: Weston Paulson M.D. on 03/23/2019 at 8:32 Approved by: Weston Paulson M.D. on 03/23/2019 at 8:34
--- NOTE | 2019-03-23 01:55 | PC.NURSE ---
Addendum entered by Louisa Lindquist R.N. 03/23/19 04:37: 0415-Levophed gtt titrated off, BP 121/53, MAP has been > 65 since 0130, see vital trends. Temp 101.3, ice pack to back of neck, extra blanket removed. Scheduled MS Contin given, Vancomycin complete. Original Note: 0100-Double lumen Piccline has been placed, patient tolerated well, Levophed gtt currently infusing at 4mcg/min, NS @ 150ml/hr, Zosyn infused. Patient is drowsy but rouses easily, oriented x3 and follows directions. PO Tylenol given for T 100.1. See vital trends and assessments.
[2019-03-23] MEDS: VANCOMYCIN 1,250 MG in SODIUM CHLORIDE 0.9% 250 ML IV ×3 (02:09→17:19)
[2019-03-23] MEDS: SODIUM CHLORIDE 0.9% 1,000 ML 150 ML IV (04:05)
[2019-03-23] MEDS: MORPHINE ER 15 MG TABLET PO ×3 (04:05→21:23)
[2019-03-23 05:34] LABS: Hematocrit 34.2 % (36-46); Hemoglobin 11.7 g/dL (12.0-16.0); Mean Corpuscular HGB Conc 34.1 % (30-36); Mean Corpuscular Hemoglobin 29.3 PG (26-34); Mean Corpuscular Volume 85.8 fL (80-100); Platelet Count 127 X10^3/uL (150-400); Red Blood Cell Count 3.99 X10^6/uL (4.0-5.2); Red Cell Distribution Width 13.3 % (11.6-14.8); White Blood Cell Count 2.7 X10^3/uL (4.5-11.0)
[2019-03-23 05:38] LABS: Add Manual Diff / Slide Review YES
[2019-03-23] MEDS: PIPERACILLIN-TAZO 4.5 GM/100 ML FROZ.PIGGY IV ×3 (06:05→18:24)
[2019-03-23] MEDS: HYDROCODONE/ACET 5/325 TABLET 1 TAB PO ×2 (06:05→16:24)
[2019-03-23] MEDS: LEVOTHYROXINE 112 MCG TABLET PO (06:05)
[2019-03-23 06:08] LABS: Procalcitonin 37.27 ng/mL (<0.5)
[2019-03-23 06:10] LABS: Alanine Aminotransferase 436 IU/L (9-52); Albumin 2.8 g/dL (3.5-5.0); Alkaline Phosphatase 129 U/L (38-126); Aspartate Aminotransferase 695 IU/L (14-36); BUN Creatinine Ratio 36.7 (6-22); Blood Urea Nitrogen 22 mg/dL (7-17); Calcium 7.6 mg/dL (8.4-10.2); Carbon Dioxide 28 mmol/L (22-32); Chloride 102 mmol/L (98-107); Estimated Glomerular Filt Rate > 60.0 mL/min (>60); Globulin 2.9 g/dL (1.7-4.1); Glucose 227 mg/dL (80-110); HEMOLYSIS < 15 (0-50); Potassium 3.7 mmol/L (3.4-5.1); Sodium 135 mmol/L (137-145); Total Protein 5.7 g/dL (6.3-8.2)
[2019-03-23 06:18] LABS: Neutrophils Absolute Manual 1863 /uL (3000-5900); RBC Morphology Normal Morphology; Total Cells Counted 100
[2019-03-23] MEDS: INSULIN ASPART 100 UNIT/ML INSULN PEN SUBCUT ×2 (08:57)
[2019-03-23] MEDS: PANTOPRAZOLE 20 MG TABLET PO (08:59)
[2019-03-23] MEDS: ATORVASTATIN 20 MG TABLET PO (08:59)
[2019-03-23] MEDS: ALPRAZolam 0.25 MG TABLET 0.5 MG PO (08:59)
[2019-03-23] MEDS: ENOXAPARIN 40 MG/0.4 ML SYRINGE SUBCUT (08:59)
[2019-03-23] MEDS: ESCITALOPRAM 10 MG TABLET 40 MG PO (08:59)
[2019-03-23] MEDS: buPROPion XL 150 MG TAB PO (08:59)
--- NOTE | 2019-03-23 09:04 | CM.DANOTE ---
DCP: Case received, EMR reviewed and met with patient. Introduces self and role. , Jamey, was at bedside. Was able to obtain some baseline information regarding health and living situation from patient. DCP assessment completed with information currently available. Patient is a 68 year old female who admitted yesterday afternoon to the care of the hospitalist team. PCP: Dr. Warner. Payer: confirmed: [facility]. Patient came to the hospital secondary to fever and weakness. She currently holds diagnosis of Sepsis, acute transminitis, as well as urinary retention. Patient was here recently for gall bladder removal, and was discharged with home health. She also has history of type 1 Diabetes, A-flutter. Met with patient in her room. Her , Jamey, was at bedside. Patient stated that she is independent at home. She resides with her in [place], as well as her daughter, Anny Abbasi. She did confirm that when she was recently here, she had home health at discharge approximately last December. P: DCP to continue to follow and be available for any resources that patient may need. Rosamaria Shelby RN/Pattern Painter
[2019-03-23] MEDS: SODIUM CHLORIDE 0.9% 1,000 ML 1000 ML IV (09:15)
--- NOTE | 2019-03-23 11:33 | PM.PN.1 ---
Subjective Date Patient Seen: 03/23/19 Interval history: The patient is a 68-year-old female who was admitted through the emergency department for 1 day history of fever and rigors. Patient was found to have severe sepsis in the emergency room. She was placed on empiric antibiotics, given 30 cc/kilogram of IV fluids, and admitted to the ICU. The patient became hypotensive last evening. She was placed on pressors for about 4 hours and then tapered off this morning she was somewhat hypotensive with a blood pressure of 88 systolic. She received another bolus of fluid with improvement of her pressure. The patient reports feeling tired. She denies any abdominal pain, nausea, vomiting, shortness of breath or chest pain. Exam Vital Signs (past 8 hours): - 03/23/19 04:15 03/23/19 05:00 03/23/19 06:16 Temperature 101.3 F H 99.7 F H Pulse Rate 74 78 70 Respiratory Rate 19 17 17 Blood Pressure 124/58 L 115/56 L 108/44 L Pulse Oximetry 92 96 98 03/23/19 07:03 03/23/19 08:04 03/23/19 09:00 Temperature 98.8 F Pulse Rate 72 73 70 Respiratory Rate 17 17 19 Blood Pressure 104/46 L 95/51 L 83/66 L Pulse Oximetry 98 98 96 03/23/19 10:00 03/23/19 11:00 Temperature Pulse Rate 65 73 Respiratory Rate 14 16 Blood Pressure 99/53 L 88/43 L Pulse Oximetry 93 93 Oxygen Delivery Method Nasal Cannula Oxygen Flow Rate 0 Narrative Exam Narrative: Ill-appearing female itching of her chest Lungs: Decreased breath sounds with occasional scattered crackle Cardiac exam: Regular rate and rhythm normal S1-S2 with a 2/6 systolic ejection murmur Abdomen: Soft, mild tenderness in the right upper quadrant, no palpable masses, no board-like rigidity, no rebound tenderness Extremity: 1+ edema, the right 2 he groin shows a well-healed surgical incision site, the left leg shows chronic venous stasis changes but no cellulitis noted Objective Labs Result Diagrams: 03/23/19 05:15 03/23/19 05:15 Labs: Laboratory Results - last 24 hr 03/22/19 03/22/19 03/22/19 10:43 16:50 16:50 WBC 1.2 L* RBC 4.69 Hgb 13.6 Hct 40.9 MCV 87.1 MCH 29.0 MCHC 33.3 RDW 13.3 Plt Count 194 Neut % (Auto) Not Reportable Lymph % (Auto) Not Reportable [place] % (Auto) Not Reportable Eos % (Auto) Not Reportable Baso % (Auto) Not Reportable Lymph # (Auto) Not Reportable [place] # (Auto) Not Reportable Baso # (Auto) Not Reportable Total Counted 50 Seg Neutrophils % 52.0 Band Neutrophils % 18.0 H Lymphocytes % (Manual) 30.0 Atypical Lymphs % Monocytes % (Manual) Eosinophils % (Manual) Neutrophils # (Manual) 840 L RBC Morphology Normal morphology PT 10.3 INR 0.9 APTT 26 L D ABG pH ABG pCO2 ABG pO2 ABG HCO3 ABG Total CO2 ABG O2 Saturation ABG Base Excess FiO2 Sodium 136 L Potassium 3.7 Chloride 104 Carbon Dioxide 29 BUN 19 H Creatinine 0.70 Estimated GFR > 60.0 BUN/Creatinine Ratio 27.1 H Glucose 199 H Lactate Calcium 7.8 L Phosphorus Magnesium Total Bilirubin 0.8 AST 654 H ALT 304 H Alkaline Phosphatase 121 Total Protein 5.7 L Albumin 2.8 L Globulin 2.9 Albumin/Globulin Ratio 1.0 Lipase Procalcitonin Urine Color Urine Appearance Urine pH Ur Specific [place] Urine Protein Urine Glucose (UA) Urine Ketones Urine Occult Blood Urine Nitrate Urine Bilirubin Urine Urobilinogen Ur Leukocyte Esterase Urine RBC Urine WBC Urine Bacteria Ur Culture Indicated? Micro UA Comment Nasal Screen MRSA (PCR) Ketones 03/22/19 03/22/19 03/22/19 16:50 16:50 16:50 WBC RBC Hgb Hct MCV MCH MCHC RDW Plt Count Neut % (Auto) Lymph % (Auto) [place] % (Auto) Eos % (Auto) Baso % (Auto) Lymph # (Auto) [place] # (Auto) Baso # (Auto) Total Counted Seg Neutrophils % Band Neutrophils % Lymphocytes % (Manual) Atypical Lymphs % Monocytes % (Manual) Eosinophils % (Manual) Neutrophils # (Manual) RBC Morphology PT INR APTT ABG pH ABG pCO2 ABG pO2 ABG HCO3 ABG Total CO2 ABG O2 Saturation ABG Base Excess FiO2 Sodium 140 Potassium 5.2 H D Chloride 99 Carbon Dioxide 33 H BUN 18 H Creatinine 0.50 L Estimated GFR > 60.0 BUN/Creatinine Ratio 36.0 H Glucose 113 H Lactate 3.3 H Calcium 9.4 Phosphorus Magnesium Total Bilirubin 1.0 AST 131 H ALT 43 Alkaline Phosphatase 98 Total Protein 7.8 Albumin 4.1 Globulin 3.7 Albumin/Globulin Ratio 1.1 Lipase 29 Procalcitonin 0.18 Urine Color Urine Appearance Urine pH Ur Specific [place] Urine Protein Urine Glucose (UA) Urine Ketones Urine Occult Blood Urine Nitrate Urine Bilirubin Urine Urobilinogen Ur Leukocyte Esterase Urine RBC Urine WBC Urine Bacteria Ur Culture Indicated? Micro UA Comment Nasal Screen MRSA (PCR) Ketones 03/22/19 03/22/19 03/22/19 16:50 17:30 17:47 WBC RBC Hgb Hct MCV MCH MCHC RDW Plt Count Neut % (Auto) Lymph % (Auto) [place] % (Auto) Eos % (Auto) Baso % (Auto) Lymph # (Auto) [place] # (Auto) Baso # (Auto) Total Counted Seg Neutrophils % Band Neutrophils % Lymphocytes % (Manual) Atypical Lymphs % Monocytes % (Manual) Eosinophils % (Manual) Neutrophils # (Manual) RBC Morphology PT INR APTT ABG pH 7.41 ABG pCO2 44.2 ABG pO2 43 L* ABG HCO3 28 H ABG Total CO2 30 ABG O2 Saturation 79 L* ABG Base Excess 4.0 H FiO2 21 Sodium Potassium Chloride Carbon Dioxide BUN Creatinine Estimated GFR BUN/Creatinine Ratio Glucose Lactate Calcium Phosphorus 4.5 H Magnesium 1.4 L Total Bilirubin AST ALT Alkaline Phosphatase Total Protein Albumin Globulin Albumin/Globulin Ratio Lipase Procalcitonin Urine Color Yellow Urine Appearance Clear Urine pH 7.0 Ur Specific [place] 1.010 Urine Protein Negative Urine Glucose (UA) Negative Urine Ketones Negative Urine Occult Blood Negative Urine Nitrate Negative Urine Bilirubin Negative Urine Urobilinogen 0.2 Ur Leukocyte Esterase Negative Urine RBC None seen Urine WBC None seen Urine Bacteria None seen Ur Culture Indicated? Cult not indicated Micro UA Comment Microscopic normal Nasal Screen MRSA (PCR) Ketones 0.13 03/22/19 03/22/19 03/22/19 18:50 19:23 22:43 WBC 1.9 L* D RBC 4.03 Hgb 11.8 L Hct 34.7 L MCV 86.1 MCH 29.4 MCHC 34.1 RDW 13.3 Plt Count 127 L Neut % (Auto) Lymph % (Auto) [place] % (Auto) Eos % (Auto) Baso % (Auto) Lymph # (Auto) [place] # (Auto) Baso # (Auto) Total Counted 100 Seg Neutrophils % 66.0 Band Neutrophils % 16.0 H Lymphocytes % (Manual) 4.0 L Atypical Lymphs % 1.0 H Monocytes % (Manual) 9.0 Eosinophils % (Manual) 4.0 Neutrophils # (Manual) 1558 L RBC Morphology Normal morphology PT INR APTT ABG pH ABG pCO2 ABG pO2 ABG HCO3 ABG Total CO2 ABG O2 Saturation ABG Base Excess FiO2 Sodium Potassium Chloride Carbon Dioxide BUN Creatinine Estimated GFR BUN/Creatinine Ratio Glucose Lactate 1.7 Calcium Phosphorus Magnesium Total Bilirubin AST ALT Alkaline Phosphatase Total Protein Albumin Globulin Albumin/Globulin Ratio Lipase Procalcitonin Urine Color Urine Appearance Urine pH Ur Specific [place] Urine Protein Urine Glucose (UA) Urine Ketones Urine Occult Blood Urine Nitrate Urine Bilirubin Urine Urobilinogen Ur Leukocyte Esterase Urine RBC Urine WBC Urine Bacteria Ur Culture Indicated? Micro UA Comment Nasal Screen MRSA (PCR) Negative for mrsa Ketones 03/22/19 03/23/19 03/23/19 22:43 05:15 05:15 WBC 2.7 L RBC 3.99 L Hgb 11.7 L Hct 34.2 L MCV 85.8 MCH 29.3 MCHC 34.1 RDW 13.3 Plt Count 127 L Neut % (Auto) Not Reportable Lymph % (Auto) Not Reportable [place] % (Auto) Not Reportable Eos % (Auto) Not Reportable Baso % (Auto) Not Reportable Lymph # (Auto) Not Reportable [place] # (Auto) Not Reportable Baso # (Auto) Not Reportable Total Counted 100 Seg Neutrophils % 48.0 Band Neutrophils % 21.0 H Lymphocytes % (Manual) 17.0 L D Atypical Lymphs % Monocytes % (Manual) 6.0 Eosinophils % (Manual) 8.0 H Neutrophils # (Manual) 1863 L RBC Morphology Normal morphology PT INR APTT ABG pH ABG pCO2 ABG pO2 ABG HCO3 ABG Total CO2 ABG O2 Saturation ABG Base Excess FiO2 Sodium Potassium Chloride Carbon Dioxide BUN Creatinine Estimated GFR BUN/Creatinine Ratio Glucose Lactate Calcium Phosphorus Magnesium 2.0 Total Bilirubin AST ALT Alkaline Phosphatase Total Protein Albumin Globulin Albumin/Globulin Ratio Lipase Procalcitonin 37.27 H Urine Color Urine Appearance Urine pH Ur Specific [place] Urine Protein Urine Glucose (UA) Urine Ketones Urine Occult Blood Urine Nitrate Urine Bilirubin Urine Urobilinogen Ur Leukocyte Esterase Urine RBC Urine WBC Urine Bacteria Ur Culture Indicated? Micro UA Comment Nasal Screen MRSA (PCR) Ketones 03/23/19 03/23/19 05:15 05:15 WBC RBC Hgb Hct MCV MCH MCHC RDW Plt Count Neut % (Auto) Lymph % (Auto) [place] % (Auto) Eos % (Auto) Baso % (Auto) Lymph # (Auto) [place] # (Auto) Baso # (Auto) Total Counted Seg Neutrophils % Band Neutrophils % Lymphocytes % (Manual) Atypical Lymphs % Monocytes % (Manual) Eosinophils % (Manual) Neutrophils # (Manual) RBC Morphology PT INR APTT ABG pH ABG pCO2 ABG pO2 ABG HCO3 ABG Total CO2 ABG O2 Saturation ABG Base Excess FiO2 Sodium 135 L Potassium 3.7 D Chloride 102 Carbon Dioxide 28 BUN 22 H Creatinine 0.60 Estimated GFR > 60.0 BUN/Creatinine Ratio 36.7 H Glucose 227 H D Lactate Calcium 7.6 L Phosphorus Magnesium 2.0 Total Bilirubin 1.0 AST 695 H ALT 436 H Alkaline Phosphatase 129 H Total Protein 5.7 L Albumin 2.8 L Globulin 2.9 Albumin/Globulin Ratio 1.0 Lipase Procalcitonin Urine Color Urine Appearance Urine pH Ur Specific [place] Urine Protein Urine Glucose (UA) Urine Ketones Urine Occult Blood Urine Nitrate Urine Bilirubin Urine Urobilinogen Ur Leukocyte Esterase Urine RBC Urine WBC Urine Bacteria Ur Culture Indicated? Micro UA Comment Nasal Screen MRSA (PCR) Ketones Assessment & Plan Assessment & Plan narrative: 1. Septic shock etiology unclear, patient did require IV pressors last evening, she continues to require IV fluids. Her LFTs are markedly elevated. The patient had a recent cholecystectomy and May, she did require intra operative cholangiogram. Given the patient's continued sepsis, fever, hypotension will obtain CT of the chest abdomen and pelvis. May need MRCP following this depending on the results plans are to rule out intra-abdominal infection, versus pneumonia, versus other etiology. Will repeat blood cultures as well. Will continue Zosyn, and vanco but discontinue ceftriaxone 2. Type 1 diabetes, continue insulin 3. Sjogren syndrome, continue usual home medication 4. Hyperlipidemia will continue statin 5. GERD,Continue PPI 6. Hypothyroid, continue L-thyroxine Will continue to monitor the patient closely given her continued hypotension, fever, and abnormal laboratory studies. Quality VTE Deep Vein Thrombosis/Pulmonary Embolism Present on Admission: No
[2019-03-23] MEDS: SODIUM CHLORIDE 0.9% 1,000 ML 250 ML IV (11:35)
[2019-03-23] MEDS: ONDANSETRON 4 MG/2 ML INJ IV ×3 (12:20→20:53)
[2019-03-23 12:58] LABS: B Type Natriuretic Peptide 112 (<100)
--- NOTE | 2019-03-23 13:03 | DI.CT.S_ITS ---
PROCEDURE: CT CHEST ABD PEL W CON INDICATIONS: sepsis, ruQ pain s/p choly TECHNIQUE: After the administration of oral and intravenous contrast, 5 mm thick sections acquired from the lung apices to the symphysis. 5 mm coronal and sagittal reformats were performed, with additional 7 mm coronal MIP reformats through the lungs. For radiation dose reduction, the following was used: automated exposure control, adjustment of mA and/or kV according to patient size. COMPARISON: [facility], CR, XR CHEST 1V, 03/23/2019, 0:37. FINDINGS: Image quality: Excellent. CHEST: Lungs and pleura: There is bilateral pneumonia present posteriorly with adjacent small to moderate pleural effusions greater on the left than the right. No cavitary pneumonia or underlying neoplasm is found. No pleural effusions or pneumothorax. Central and peripheral airways appear patent and normal in caliber. Mediastinum: Heart size is normal. No pericardial effusion. No mediastinal or hilar adenopathy by size criteria. Thoracic aorta and central pulmonary arteries are normal in size. Esophagus is normal in caliber. No hiatal hernia. A PICC line from right sided approach extends normally into the distal SVC. Chest wall: No axillary or supraclavicular adenopathy by size criteria. Thyroid gland appears normal where well seen.. ABDOMEN: Solid organs: Liver is normal in size and enhancement. There is mild periportal edema, a nonspecific finding that can be seen in the setting of sepsis Gallbladder appears previously resected without operative complication found. Biliary system is non dilated. Pancreas enhances normally. Spleen is normal in size and enhancement. No adrenal nodules. Kidneys demonstrate normal size and enhancement, without hydronephrosis. Peritoneum and bowel: Bowel loops demonstrate normal wall thickness and caliber. No free fluid or air. Nodes and vessels: No retroperitoneal or mesenteric adenopathy by size criteria. Aorta and inferior vena cava are normal in size. Miscellaneous: No ventral hernias. PELVIS: Genitourinary: Bladder wall thickness is difficult to accurately assess due to complete emptying of the bladder lumen by a Bah catheter in place. Miscellaneous: No inguinal hernias or adenopathy. Bones: No suspicious bony lesions. No vertebral body compression fractures. IMPRESSION: Through the chest abdomen and pelvis no abscess is seen. No urinary tract stone or obstruction is found. No biliary obstruction is suspected. Note is made of bilateral pneumonia, left greater than right, with bilateral associated pleural effusions that appear [id number] in size greater on the left than the right. Dictated by: Weston Paulson M.D. on 03/23/2019 at 13:15 Approved by: Weston Paulson M.D. on 03/23/2019 at 13:19
--- NOTE | 2019-03-23 14:49 | PC.NURSE ---
Day Shift Note Pt drowsy on AM assessment but oriented x3 and able to answer questions appropriately and make needs known. Reports feeling very weak and tired. Denies pain, does take morphine ER scheduled for chronic leg pain. Oxygens ats sats 98% on 2L NC, weaned to RA with sats now 93-96%. BP trending down to 80s/50s - 1L NS given at 0915 per MD order with good effect - see VS trends. CT scan done at 1215 - pt nauseated after ingesting contract with unmeasured emesis in CT room (appeared to be 50-75ml). Zofran administered and pt now denies nausea. BP now in the upper 80s/40s, pt denies any dizziness. MD updated - no new orders at this time. NS 100 ml/hr at this time. Bah catheter draining clear ne urine with 325 ml - MD aware. Call light within reach using appropriately to make needs known. Bed alarm.
[2019-03-23 16:14] LABS: Adenovirus Not Detected (Not Detect); Coronavirus 229E Not Detected (Not Detect); Coronavirus HKU1 Not Detected (Not Detect); Coronavirus NL 63 Not Detected (Not Detect); Coronavirus OC43 Not Detected (Not Detect); Human Metapneumovirus Not Detected (Not Detect); Human Rhinovirus/Enterovirus Not Detected (Not Detect); Influenza A Not Detected (Not Detect); Influenza B Not Detected (Not Detect); Parainfluenza Virus 1 Not Detected (Not Detect); Parainfluenza Virus 2 Not Detected (Not Detect)
[2019-03-23 16:15] LABS: Bordetella pertussis Not Detected (Not Detect); Chlamydophila pneumoniae Not Detected (Not Detect); Mycoplasma pneumoniae Not Detected (Not Detect); Parainfluenza Virus 3 Not Detected (Not Detect); Parainfluenza Virus 4 Not Detected (Not Detect); Respiratory Syncytial Virus Not Detected (Not Detect)
--- NOTE | 2019-03-23 17:26 | PC.NURSE ---
Addendum entered by Aye Edgar R.N. 03/23/19 23:23: 2300 - Pt with additional episode of emesis, only mostly dry heaves. Increased anxiety and agitation. I don't want to do this all night. DAWSON Jose notified of persistent N/V. Addendum entered by Aye Edgar R.N. 03/23/19 21:38: 2100 - Pt continues to c/o nausea. Zofran given. BG 170. Reviewed nausea and medication list with DAWSON Jose, Order obtained to reduce HS lantus dose. Notified of current VS. Pt resting with eyes closed, but responsive to light stimuli and appropriate. Reinforced treatment plan, Pt reports anxiety r/t dx, stating that she had a friend of pneumonia. Essentially, she drowned, I don't want to drown. Pt denies feeling SOB, denies chest pain or lightheadedness. Generalized pain reported as well as persistent nausea. Reassurance provided. Warm blanket provided temp 98.4. Call light in reach. Addendum entered by Aye Edgar R.N. 03/23/19 20:10: 2000 - Assessment of pt and encouraged repositioning. Pt again became nauseated with minimal stimulation and movement. 75cc emesis. Map continues to be >60, BP 96/45 Map 66. DAWSON Jose, notified of persistent nausea and emesis despite medication at 1715. Pt declines to reposition at this time. Addendum entered by Aye Edgar R.N. 03/23/19 18:40: 1630 - Pt sitting in semi-fowlers. States that nausea has resolved, however when encouraged to reposition pt state, oh, now I may throw up again. Pt declines reposition at this time. Abx infusing. Call light in reach. Original Note: 1715 - Dinner tray provided to pt. Sitting up in bed pt states I just don't have an appetite. Followed by I am going to be sick. 125cc emesis. Zofran given. Dr. Gaston notified of MAP>60 while awake and <60 with sleep. Review I and O, O2 sats, I.S. and oxygen needs. ABX infusing. Insulin held r/t nausea, emesis and no meal intake. Call light in reach. Supportive at bedside.
[2019-03-23] MEDS: MECLIZINE HCL 12.5 MG TABLET 25 MG PO (20:22)
[2019-03-23] MEDS: SODIUM CHLORIDE 0.9% FLUSH 10 ML IV (20:44)
[2019-03-23] MEDS: SODIUM CHLORIDE 0.9% 1,000 ML 100 ML IV (20:45)
[2019-03-23] MEDS: INSULIN GLARGINE 100 UNIT/ML 3ML PEN 20 UNIT SUBCUT (21:43)
[2019-03-24] VITALS (15 sets, daily range): BP systolic 108–141; BP diastolic 47–66; PULSE 54–75; RESP 15–20; TEMP 36.6–36.9; O2SAT 95–99
[2019-03-24] MEDS: PIPERACILLIN-TAZO 4.5 GM/100 ML FROZ.PIGGY IV ×4 (00:30→18:14)
[2019-03-24] MEDS: ONDANSETRON 4 MG/2 ML INJ IV ×2 (00:38→08:04)
[2019-03-24] MEDS: HYDROCODONE/ACET 5/325 TABLET 1 TAB PO ×3 (00:38→17:01)
[2019-03-24] MEDS: BISACODYL 5 MG TABLET 10 MG PO (00:38)
--- NOTE | 2019-03-24 02:15 | PC.NURSE ---
Addendum entered by Louisa Lindquist R.N. 03/24/19 06:20: 0615-Up to BS with walker and SBA, large hard BM with much flatus, c/o mild nausea without emesis. VSS, SpO2 99% on RA when back to bed. Original Note: 0100-Patient has been anxious, restless, and impulsive, c/o nausea with 50ml bile emesis. Also c/o chronic pain all over and burning in throat after vomitting, no blood noted. SR, BP 108/49, afebrile, no dyspnea, SpO2 97% on 1L, RR 17. IV Zofran given prior to PO Vicodin and PO Dulcolax per her request.
[2019-03-24 02:27] LABS: Vancomycin Trough 16.5 ug/mL (10-20)
[2019-03-24] MEDS: VANCOMYCIN TROUGH 1 REQUEST MISC (02:30)
[2019-03-24] MEDS: VANCOMYCIN 1,250 MG in SODIUM CHLORIDE 0.9% 250 ML IV ×2 (02:31→09:07)
[2019-03-24] MEDS: MORPHINE ER 15 MG TABLET PO ×3 (03:32→20:36)
[2019-03-24] MEDS: MECLIZINE HCL 12.5 MG TABLET 25 MG PO (03:32)
[2019-03-24 05:41] LABS: Add Manual Diff / Slide Review NO; Basophils Absolute Auto 0 /uL (0-100); Basophils Percent Auto 0.2 % (0-2); Eosinophils Absolute Auto 200 /uL (0-450); Eosinophils Percent Auto 6.6 % (2-4); Hematocrit 32.7 % (36-46); Hemoglobin 11.2 g/dL (12.0-16.0); Lymphocytes Absolute Auto 700 /uL (1100-4500); Lymphocytes Percent Auto 17.8 % (25-40); Mean Corpuscular HGB Conc 34.1 % (30-36); Mean Corpuscular Hemoglobin 29.4 PG (26-34); Mean Corpuscular Volume 86.3 fL (80-100); Monocytes Absolute Auto 200 /uL (0-900); Monocytes Percent Auto 5.3 % (3-14); Neutrophils Absolute Auto 2600 /uL (1500-7000); Neutrophils Percent Auto 70.1 % (50-75); Platelet Count 88 X10^3/uL (150-400); Red Blood Cell Count 3.79 X10^6/uL (4.0-5.2); Red Cell Distribution Width 13.3 % (11.6-14.8); White Blood Cell Count 3.8 X10^3/uL (4.5-11.0)
[2019-03-24 05:48] LABS: INR 1.1 (0.9-1.3); Prothrombin Time 13.2 SECONDS (10.1-12.7)
[2019-03-24 05:56] LABS: Alanine Aminotransferase 253 IU/L (9-52); Albumin 2.6 g/dL (3.5-5.0); Albumin Globulin Ratio 0.8 (1.0-2.8); Alkaline Phosphatase 118 U/L (38-126); Aspartate Aminotransferase 183 IU/L (14-36); BUN Creatinine Ratio 52.5 (6-22); Bilirubin Total 0.5 mg/dL (0.2-1.3); Blood Urea Nitrogen 21 mg/dL (7-17); Calcium 7.6 mg/dL (8.4-10.2); Carbon Dioxide 25 mmol/L (22-32); Chloride 102 mmol/L (98-107); Estimated Glomerular Filt Rate > 60.0 mL/min (>60); Globulin 3.1 g/dL (1.7-4.1); Glucose 123 mg/dL (80-110); HEMOLYSIS < 15 (0-50); Magnesium 1.9 mg/dL (1.6-2.3); Potassium 3.4 mmol/L (3.4-5.1); Sodium 133 mmol/L (137-145); Total Protein 5.7 g/dL (6.3-8.2)
[2019-03-24 06:13] LABS: B Type Natriuretic Peptide 146 (<100)
--- NOTE | 2019-03-24 06:14 | DI.RAD.S_ITS ---
PROCEDURE: XR CHEST 1V INDICATIONS: pneumonia TECHNIQUE: One view of the chest was acquired. COMPARISON: [facility], CR, XR CHEST 1V, 03/23/2019, 0:37. CXR 03/22/2019, CT chest 09/23/2018. FINDINGS: Surgical changes and devices: Right-sided PICC line with the catheter tip terminating at the lower third of the SVC in satisfactory position. Lungs and pleura: Mild diffuse increased interstitial markings bilaterally. Mild hazy opacity in the suprahilar regions that is similar to the prior exam. Probable trace left pleural effusion. No pneumothorax. Mediastinum: Mediastinal contours appear normal. Heart size is within normal limits. Bones and chest wall: No suspicious bony lesions. Overlying soft tissues appear unremarkable. IMPRESSION: 1. Similar diffuse increased interstitial markings bilaterally. Favor mild fluid overload/CHF. Mild suprahilar opacity may represent superimposed pneumonia or atelectasis. 2. Recently placed right PICC is in the expected position. No pneumothorax. Dictated by: Chris Sanchez M.D. on 03/24/2019 at 7:28 Approved by: Chris Sanchez M.D. on 03/24/2019 at 7:33
[2019-03-24] MEDS: SODIUM CHLORIDE 0.9% 1,000 ML 100 ML IV (06:45)
[2019-03-24] MEDS: ALPRAZolam 0.25 MG TABLET 0.5 MG PO (08:03)
[2019-03-24] MEDS: buPROPion XL 150 MG TAB PO (08:04)
[2019-03-24] MEDS: ESCITALOPRAM 10 MG TABLET 40 MG PO (08:04)
[2019-03-24] MEDS: ATORVASTATIN 20 MG TABLET PO (08:04)
[2019-03-24] MEDS: SODIUM CHLORIDE 0.9% FLUSH 10 ML IV ×2 (08:04→20:49)
[2019-03-24] MEDS: PANTOPRAZOLE 20 MG TABLET PO (08:04)
[2019-03-24] MEDS: LEVOTHYROXINE 112 MCG TABLET PO (08:04)
--- NOTE | 2019-03-24 10:20 | PM.PN.1 ---
Subjective Date Patient Seen: 03/24/19 Interval history: Patient reports nausea today. She also reports feeling very tired. She specifically requests not to go to the floor. The patient wants to know if her morphine has been scheduled as at home 15 mg 3 times daily which I reassured her and has been. She reports minimal shortness of breath. Blood pressure is improved. She has excellent urine output. Overall she clinically is improving although feels very fatigued since admission. Exam Vital Signs (past 8 hours): - 03/24/19 03:00 03/24/19 04:00 03/24/19 05:00 Temperature Pulse Rate 70 64 71 Respiratory Rate 17 16 15 Blood Pressure 115/47 L 126/56 L 112/49 L Pulse Oximetry 03/24/19 06:00 03/24/19 07:05 03/24/19 08:00 Temperature 98.1 F Pulse Rate 72 56 L 54 L Respiratory Rate 17 20 Blood Pressure 121/61 119/60 118/62 Pulse Oximetry 97 95 03/24/19 08:20 03/24/19 10:10 Temperature Pulse Rate 58 L Respiratory Rate 18 Blood Pressure Pulse Oximetry 96 96 Oxygen Delivery Method Room Air Oxygen Flow Rate 0 Narrative Exam Narrative: Ill-appearing female resting comfortably Lungs: Decreased breath sounds with crackles at the right base occasional scattered crackles in the left base Cardiac exam regular rate and rhythm normal S1-S2 with a 2/6 systolic ejection murmur Abdomen: Soft and nontender nondistended without hepatosplenomegaly Extremities: Left leg with dry healed venous stasis changes. No evidence of erythema or cellulitis per 1+ edema on the Objective Labs Result Diagrams: 03/24/19 05:15 03/24/19 05:15 Labs: Laboratory Results - last 24 hr 03/23/19 03/23/19 03/24/19 05:15 14:30 01:20 WBC RBC Hgb Hct MCV MCH MCHC RDW Plt Count Neut % (Auto) Lymph % (Auto) [place] % (Auto) Eos % (Auto) Baso % (Auto) Neut # (Auto) Lymph # (Auto) [place] # (Auto) Eos # (Auto) Baso # (Auto) PT INR Sodium Potassium Chloride Carbon Dioxide BUN Creatinine Estimated GFR BUN/Creatinine Ratio Glucose Calcium Magnesium Total Bilirubin AST ALT Alkaline Phosphatase B-Natriuretic Peptide 112 H Total Protein Albumin Globulin Albumin/Globulin Ratio Vancomycin Trough 16.5 Chlamy pneumoniae PCR Not detected Adenovirus (PCR) Not detected B.parapertussis DNA PCR Not detected Coronavirus OC43 (PCR) Not detected Coronavirus HKU1 (PCR) Not detected Coronavirus 229E (PCR) Not detected Coronavirus NL63 (PCR) Not detected Human Metapneumovir PCR Not detected Influenza Type A (PCR) Not detected Influenza Type B (PCR) Not detected M. pneumoniae (PCR) Not detected Parainfluenza 1 (PCR) Not detected Parainfluenza 2 (PCR) Not detected Parainfluenza 3 (PCR) Not detected Parainfluenza 4 (PCR) Not detected RSV (PCR) Not detected Entero/Rhino (PCR) Not detected 03/24/19 03/24/19 03/24/19 05:15 05:15 05:15 WBC 3.8 L RBC 3.79 L Hgb 11.2 L Hct 32.7 L MCV 86.3 MCH 29.4 MCHC 34.1 RDW 13.3 Plt Count 88 L Neut % (Auto) 70.1 Lymph % (Auto) 17.8 L [place] % (Auto) 5.3 Eos % (Auto) 6.6 H Baso % (Auto) 0.2 Neut # (Auto) 2600 Lymph # (Auto) 700 L [place] # (Auto) 200 Eos # (Auto) 200 Baso # (Auto) 0 PT 13.2 H INR 1.1 Sodium 133 L Potassium 3.4 Chloride 102 Carbon Dioxide 25 BUN 21 H Creatinine 0.40 L Estimated GFR > 60.0 BUN/Creatinine Ratio 52.5 H Glucose 123 H D Calcium 7.6 L Magnesium 1.9 Total Bilirubin 0.5 AST 183 H ALT 253 H Alkaline Phosphatase 118 B-Natriuretic Peptide 146 H Total Protein 5.7 L Albumin 2.6 L Globulin 3.1 Albumin/Globulin Ratio 0.8 L Vancomycin Trough Chlamy pneumoniae PCR Adenovirus (PCR) B.parapertussis DNA PCR Coronavirus OC43 (PCR) Coronavirus HKU1 (PCR) Coronavirus 229E (PCR) Coronavirus NL63 (PCR) Human Metapneumovir PCR Influenza Type A (PCR) Influenza Type B (PCR) M. pneumoniae (PCR) Parainfluenza 1 (PCR) Parainfluenza 2 (PCR) Parainfluenza 3 (PCR) Parainfluenza 4 (PCR) RSV (PCR) Entero/Rhino (PCR) Assessment & Plan Assessment & Plan narrative: 1. 68-year-old female admitted to the hospital with septic shock. Sepsis secondary to bilateral pneumonia. Patient required extensive IV hydration in addition to the norepinephrine for blood pressure support. She has been successfully tapered off the norepinephrine and now will be discontinued from her IV fluids. Her blood pressure has improved. Her urine output is improved. The patient will continue on IV Zosyn and vancomycin will be discontinued at this time. Will repeat her procalcitonin to ensure improvement. 2. Bilateral pneumonia, continue antibiotics as above. Patient is not hypoxic IV fluids to be discontinued today. 3. Type 2 diabetes continue basal bolus insulin therapy 4. Hyponatremia, likely related to free water resuscitation with IV hydration. Will continue to follow closely 5. Thrombocytopenia, etiology unclear, will hold Lovenox at this time and recheck. 6. Fibromyalgia, chronic, continue usual home regimen 7. Hypothyroidism continue L-thyroxine 8. Sjogren's syndrome, continue usual home regimen 9. GERD, continue PPI 10. Venous stasis ulceration no evidence of infection will continue to monitor Quality VTE Deep Vein Thrombosis/Pulmonary Embolism Present on Admission: No
--- NOTE | 2019-03-24 12:10 | PT.IIE ---
Current Diagnoses Sepsis, unspecified organism (03/22/19) Surgical History (Last Reviewed 03/22/19 @ 19:04 by Yuval Tomas DO) History of cholecystectomy (Resolved) History of lymph node biopsy (Acute) H/O total hysterectomy (Resolved) Medical History (Last Reviewed 03/22/19 @ 19:04 by Yuval Tomas DO) Fibromyalgia (Acute) Depression (Chronic) Diabetes (Chronic) Fibromyalgia (Chronic) GERD (gastroesophageal reflux disease) (Chronic) Hyperlipidemia (Chronic) Hypothyroidism (Chronic) Meningioma (Chronic) Restless leg syndrome (Chronic) Sjogren's disease (Chronic) Sleep apnea (Chronic) Spinal stenosis, lumbar (Chronic) Venous stasis dermatitis of both lower extremities (Chronic) Physical Therapy Inpatient Evaluation/Re-Eval M1 PT/OT-IP Prior Functional Status Start: 03/24/19 11:50 Freq: NEEDED Status: Active Protocol: Document 03/24/19 11:25 HH (Rec: 03/24/19 12:10 [email or web address]) Medical Review Prior Functional Status Medical History Reviewed Yes Communication No deficits noted. Able to make needs known Mobility and Gait Pt's states pt was independent at home and community without using AD. She did go to rehab in SNF for 2 weeks after her last hospitalization in December. Pt was able to drive as well. Activities of Daily Living and IADL's Pt was independent for ADLs and IADLs. Pt;s does most of the grocery shopping. Social History Household Members spouse family Living Arrangements House Number of Floors (Floors) One Floor Number of Stairs To Enter/Railing? 1 DEMETRICE without rails Home Environment Standard Height Toilet Tub/Shower Home Equipment Front Wheel Walker Employment Status Retired Additional Social History Comment Pt lives with her Jamey in [place]. Her Dtr Anny lives close by. Gene states pt usually sleep in a adjustable bed that allows her for changin positions and better bed mobility. Pt was hospitalized in December for gall bladder removal and sepsis. She was transferred to SNF for rehab for 2 weeks and was able to return to PLOF. M2 PT-IP Current Condition Start: 03/24/19 11:50 Freq: NEEDED Status: Active Protocol: Document 03/24/19 11:25 HH (Rec: 03/24/19 12:10 [email or web address]) Physical Therapy Current Condition Current Condition Evaluation Date 03/24/19 Treatment Diagnosis Severe sepsis, B PNA, UTI, generalized muscle weakness Onset Date 03/22/19 Weight Bearing Status Weight Bearing Status Weight Bear as Tolerated M3 PT-IP Subjective Start: 03/24/19 11:50 Freq: NEEDED Status: Active Protocol: Document 03/24/19 11:25 (Rec: 03/24/19 12:10 [email or web address]) Subjective Physical Therapy Visit Type Type Initial Evaluation Visit Start Time 11:25 Visit Stop Time 11:50 Total Visit Minutes 25 Notes Gene at bedside. Pt has been using BSC for toileting. Number of CLEANER CARPET AND UPHOLSTERY Visits 0 Physical Therapy Visit Comments Patient Comments I feel very weak Patient Goals To get stronger and return to home. Therapy Pain Assessment Pain When Pain Assessed At Rest Pain Present Pain Present Pain Reported Location generalized Intensity 6 Scale Used Anders-Vernon (Faces) Description Aching M4 PT-IP Mobility and Gait Start: 03/24/19 11:50 Freq: NEEDED Status: Active Protocol: Document 03/24/19 11:25 (Rec: 03/24/19 12:10 [email or web address]) PT-Bed Mobility Assessment Rolling Type of Rolling Roll to Right Level of Assist Contact Guard Assistance Supine to Sit Supine to Sit Minimal Assistance Head of Bed Elevated Bedrails Scooting Scooting to Edge of Bed Contact Guard Assistance PT-Transfer Assessment Sit to and From Stand Sit to and from Stand Minimal Assistance 1 Person Assistance Equipment Transfer Assistive Device Gait Belt Front Wheeled Walker Orthotic/Prosthetic Devices or Brace: No Transfers Transfer Destination Bed Chair Transfer Technique Stand Step Pivot Transfer Ability Level of Assist Minimal Assistance 1 Person Assistance Use of Upper Extremities Comments Mobility Comments Pt appears very drowsy in bed upon assessment. Stated I am very weak and my whole body aches. My legs are very restless. BP in supine = 121/ 59 , post transfer= 126/53. Pt was able to roll to R and sat at EOB with side push up from elevated HOB (40 degrees) but required min A on shoulders. She then stood up and stand step pivot herself with small steps to the right side and sat down on bedside chair with FWW with CGA- min A. She did call out for generalized pain and weakness during transfers but demonstrated a safe transfer. Pt fell back to sleep immediately and placed call light within reach. Gait Assessment Comments Gait Comments did not amb due to significant weakness PT-Balance Assessment Sitting Balance and Reactions Static Sitting Balance Ability Good Dynamic Sitting Balance Ability Good Standing Balance and Reactions Static Standing Balance Ability Good Dynamic Standing Balance Ability Good Device Used fWW M5 PT-IP Objective Assessments Start: 03/24/19 11:50 Freq: NEEDED Status: Active Protocol: Document 03/24/19 11:25 (Rec: 03/24/19 12:10 [email or web address]) Orientation Orientation/Cognition Level of Alertness Alert Orientation Name Age Birthday Month Date Year Day of Week Place Situation Language Function Ability No Deficits Noted Safety Awareness Understands Safety Issues Memory Description No Deficits Noted Comments Pt appears very drowsy but able to respond appropriately with questions Gross Range of Motion Upper Extremity ROM Assessment Within Functional Limits Lower Extremity ROM Assessment Within Functional Limits Strength Upper Extremity Strength Assessment Bilaterally Impaired Lower Extremity Strength Assessment Bilaterally Impaired Comments Strength Comments B UEs and LEs = 3+/5 Coordination Assessment Gross Coordination Gross Coordination WNL Sensation Assessment Sensation Gross Sensation WNL Muscle Tone Muscle Tone WNL Yes M6 PT-IP Treatment Start: 03/24/19 11:50 Freq: NEEDED Status: Active Protocol: Document 03/24/19 11:25 HH (Rec: 03/24/19 12:10 [email or web address]) Physical Therapy Treatment Education Education Provided Safety M7 PT-IP Assessment and Plan Start: 03/24/19 11:50 Freq: NEEDED Status: Active Protocol: Document 03/24/19 11:25 (Rec: 03/24/19 12:10 [email or web address]) PT Summary Assessment and Plan Potential Rehabilitation Potential Good Status of Condition at Evaluation Evolving Summary Impairments Pain Strength Balance Bed Mobility Transfers Gait Activity Tolerance Assessment Summary Pt is a mod complexity with dx of severe sepsis, UTI and B PNA. Upon assessment, pt's VS were stable but she appeared very drowsy and called out for generalized pain multiple times. She transferred from bed to bedside chair with min A and FWW but then returned to sleep immediately after she sat down. Pt currently is evolving medically and appears very weak due to aforementioned dx. She is far from her baseline at this point and will cont need therapy to improve her functional mobility and strength prior to d/c. Will cont assess her mobility status, but recommend short term rehab at SNF at this point. Goals Bed Mobility Goal Standby Assistance Transfer Goal Standby Assistance Front Wheeled Walker Gait Goal Standby Assistance Front Wheel Walker Gait Distance 50 Other Goals 1 DEMETRICE without rails Days to Meet Goals 10 Frequency of Treatment Frequency Of Treatment Once a Day Treatment Plan Physical Therapy Treatment Plan Bed Mobility Training Transfer Training Gait Training Therapeutic Exercise Balance Retraining Discharge Planning Hot or Cold Pack Other Recommendations and Next Treatment bed mob, transfer and gait Focus training as brianna Recommendations To Nursing Amount of Assist Needed 1 Person Assist Discharge Recommendations PT Discharge Recommendations SNF Rehab Other Discharge Recommendations Will cont assess her mobility status, but recommend short term rehab at SNF at this point. Equipment Needed for Home Before pt;s is unsure if pt Discharge has a FWW at home. FWW if pt goes home
[2019-03-24 12:20] LABS: Add Manual Diff / Slide Review NO; Basophils Absolute Auto 0 /uL (0-100); Basophils Percent Auto 0.1 % (0-2); Eosinophils Absolute Auto 300 /uL (0-450); Eosinophils Percent Auto 7.2 % (2-4); Hematocrit 32.3 % (36-46); Hemoglobin 11.1 g/dL (12.0-16.0); Lymphocytes Absolute Auto 1100 /uL (1100-4500); Lymphocytes Percent Auto 22.8 % (25-40); Mean Corpuscular HGB Conc 34.4 % (30-36); Mean Corpuscular Hemoglobin 29.4 PG (26-34); Mean Corpuscular Volume 85.5 fL (80-100); Monocytes Absolute Auto 200 /uL (0-900); Monocytes Percent Auto 4.5 % (3-14); Neutrophils Absolute Auto 3100 /uL (1500-7000); Neutrophils Percent Auto 65.4 % (50-75); Platelet Count 102 X10^3/uL (150-400); Red Blood Cell Count 3.78 X10^6/uL (4.0-5.2); Red Cell Distribution Width 13.4 % (11.6-14.8); White Blood Cell Count 4.8 X10^3/uL (4.5-11.0)
--- NOTE | 2019-03-24 12:25 | OT.IP.TRT ---
Current Diagnoses Sepsis, unspecified organism (03/22/19) Occupational Therapy Treatment Note M3 OT- IP Subjective and Pain Start: 03/24/19 13:07 Freq: Status: Active Protocol: Document 03/24/19 12:25 PJ (Rec: 03/24/19 13:09 PJ [id number]) OT- Subjective Occupational Therapy Visit Type Type Administrative Note Visit Start Time 12:25 Notes OT referral received. Initial assessment attempted but pt very drowsy and declined assessment today due to fatigue. Pt agreed to OT evaluation tomorrow. No charge .
[2019-03-24] MEDS: INSULIN GLARGINE 100 UNIT/ML 3ML PEN 20 UNIT SUBCUT (20:40)
--- NOTE | 2019-03-24 21:13 | PC.NURSE ---
2100- Patient states she does not have the urge to void. Patient attempted to void but was able to produce only 100cc. Patient bladder scanned but only has 1-3ml. Rebeca notified no orders recieved. Will monitor.
[2019-03-25] VITALS (7 sets, daily range): BP systolic 133–145; BP diastolic 54–72; PULSE 53–64; RESP 16–19; TEMP 36.6–37.5; O2SAT 94–99
[2019-03-25] MEDS: PIPERACILLIN-TAZO 4.5 GM/100 ML FROZ.PIGGY IV ×4 (00:29→18:26)
[2019-03-25] MEDS: HYDROCODONE/ACET 5/325 TABLET 1 TAB PO ×2 (01:05→16:56)
[2019-03-25] MEDS: MORPHINE ER 15 MG TABLET PO ×3 (03:59→20:36)
--- NOTE | 2019-03-25 05:10 | PC.NURSE ---
Pt stated Oh, I feel shaky, check my blood sugar , checked glucose as am labs were drawn and it was 108 at which point pt states Oh I need something with sugar, that's too low. Tried to talk her into glucerna or clear boost as it had protein, she stated Oh, I know I won't like it. She took a sip and said she didn't like it and asked for pudding. Pudding given.
[2019-03-25 05:19] LABS: Add Manual Diff / Slide Review NO; Basophils Absolute Auto 0 /uL (0-100); Basophils Percent Auto 0.2 % (0-2); Eosinophils Absolute Auto 300 /uL (0-450); Eosinophils Percent Auto 6.9 % (2-4); Hematocrit 31.8 % (36-46); Lymphocytes Absolute Auto 1500 /uL (1100-4500); Lymphocytes Percent Auto 35.1 % (25-40); Mean Corpuscular HGB Conc 34.5 % (30-36); Mean Corpuscular Hemoglobin 29.4 PG (26-34); Mean Corpuscular Volume 85.2 fL (80-100); Monocytes Absolute Auto 200 /uL (0-900); Monocytes Percent Auto 5.1 % (3-14); Neutrophils Absolute Auto 2200 /uL (1500-7000); Neutrophils Percent Auto 52.7 % (50-75); Platelet Count 100 X10^3/uL (150-400); Red Blood Cell Count 3.73 X10^6/uL (4.0-5.2); Red Cell Distribution Width 13.6 % (11.6-14.8); White Blood Cell Count 4.2 X10^3/uL (4.5-11.0)
[2019-03-25 05:26] LABS: Blood Urea Nitrogen 16 mg/dL (7-17); Calcium 7.9 mg/dL (8.4-10.2); Carbon Dioxide 26 mmol/L (22-32); Chloride 102 mmol/L (98-107); Estimated Glomerular Filt Rate > 60.0 mL/min (>60); Glucose 106 mg/dL (80-110); HEMOLYSIS < 15 (0-50); Sodium 134 mmol/L (137-145)
--- NOTE | 2019-03-25 08:02 | P.PN_ITS ---
Subjective Date Patient Seen: 03/25/19 Interval history: Alissa Kirby is a 68-year-old female patient with a past medical history significant for diabetes mellitus type 1, hyperlipidemia, hypothyroidism, menin gioma, Sjogren syndrome, fibromyalgia, venous stasis dermatitis who presented for septic shock secondary to bilateral pneumonia. The patient is resting in bed comfortably and in no acute distress. She endorses fatigue and overall malaise. She reports her cough has significantly improved and is no longer expect rating much sputum. She denies headache, rhinitis, sore throat, shortness of breath, chest pain, abdominal pain, nausea, vomiting, fever, chills, dysuria, diarrhea or constipation. She is voiding and eliminating without difficulty. She is up ambulating with assistance. Ordered PT and OT as patient has generalized weakness. Exam Vital Signs (past 8 hours): - 03/25/19 00:43 03/25/19 04:00 Temperature 98.5 F 97.8 F Pulse Rate 64 53 L Respiratory Rate 16 16 Blood Pressure 136/54 L 133/56 L Pulse Oximetry 94 95 Oxygen Delivery Method Room Air Oxygen Flow Rate 0 Narrative Exam Narrative: General: Older female sitting in bed and in no acute distress, appears older than stated age and chronically ill, appropriately interactive. HEENT: Normocephalic, atraumatic. External ears without defect. Pupils equal, round, and reactive to light. Anicteric sclerae, moist conjunctivae, and no lid lag. Oropharynx free of erythema and cobble stoning with moist mucosa. Neck: Supple with full range of motion. No lymphadenopathy or thyromegaly. Cardiovascular: Regular rate and rhythm without murmurs, rubs, or gallops appreciated. Pulmonary: Clear to auscultation bilaterally with occasional scattered rhonchi. No crackles or wheeze. Normal respiratory effort with no use of accessory muscles. Abdomen: Soft, bowel sounds present, nontender, nondistended. No hepatosplenomegaly or masses appreciated. Extremities: No clubbing, cyanosis, or edema. Skin: Normal temperature, turgor, and texture; no rash, ulcers, or subcutaneous nodules appreciated. Neurological: Cranial nerves grossly intact. Generalized weakness present. Psychiatric: Depressed mood and flat affect. Appears alert and oriented to person, place, and time. Objective Labs Result Diagrams: 03/25/19 04:50 03/25/19 04:50 Labs: Laboratory Results - last 24 hr 03/24/19 03/24/19 03/25/19 12:10 12:10 04:50 WBC 4.8 4.2 L RBC 3.78 L 3.73 L Hgb 11.1 L 11.0 L Hct 32.3 L 31.8 L MCV 85.5 85.2 MCH 29.4 29.4 MCHC 34.4 34.5 RDW 13.4 13.6 Plt Count 102 L 100 L Neut % (Auto) 65.4 52.7 Lymph % (Auto) 22.8 L 35.1 [place] % (Auto) 4.5 5.1 Eos % (Auto) 7.2 H 6.9 H Baso % (Auto) 0.1 0.2 Neut # (Auto) 3100 2200 Lymph # (Auto) 1100 1500 [place] # (Auto) 200 200 Eos # (Auto) 300 300 Baso # (Auto) 0 0 Sodium Potassium Chloride Carbon Dioxide BUN Creatinine Estimated GFR BUN/Creatinine Ratio Glucose Calcium Procalcitonin 17.80 H 03/25/19 04:50 WBC RBC Hgb Hct MCV MCH MCHC RDW Plt Count Neut % (Auto) Lymph % (Auto) [place] % (Auto) Eos % (Auto) Baso % (Auto) Neut # (Auto) Lymph # (Auto) [place] # (Auto) Eos # (Auto) Baso # (Auto) Sodium 134 L Potassium 3.0 L Chloride 102 Carbon Dioxide 26 BUN 16 Creatinine 0.40 L Estimated GFR > 60.0 BUN/Creatinine Ratio 40.0 H Glucose 106 Calcium 7.9 L Procalcitonin Assessment & Plan Assessment & Plan narrative: Alissa Kirby is a 68-year-old female patient with a past medical history significant for diabetes mellitus type 1, hyperlipidemia, hypothyroidism, mening ioma, Sjogren syndrome, fibromyalgia, venous stasis dermatitis who presented for septic shock secondary to bilateral pneumonia. 1. Septic shock, present on admission. Resolved. -Patient presented febrile (Temp 101? F), tachycardic (HR 116), tachypneic (RR 26), leukopenic (WBC 1.9), procalcitonin 37.27, lactic acidosis 3.3, with organ dysfunction of hypotension (BP 83/36) which became unresponsive to IV fluids and Levophed was initiated for septic shock. Source bilateral bacterial community- acquired pneumonia. -Early goal-directed therapy met including: IV fluid hydration and broad-spectr um antibiotics. -Continued to trend lactic acid every 2 hours until under 2.0. 2. Bilateral bacterial community-acquired pneumonia, present on admission. Resolving. -CTA chest demonstrated bibasilar pneumonia L>R with bilateral pleural effusions. No PE. -Patient required extensive IV fluid hydration in addition to the norepinephrine for blood pressure support. Both of which have been discontinued/tapered off. -Ordered complete pneumonia workup including: Respiratory viral PCR negative. Strep pneumoniae and Legionella urine antigens, pending. Sputum culture not yet obtained. Blood culture x2 has no growth to date. -Continue to monitor WBC and PCT daily. If patient is on correct antibiotic therapy PCT should reduce by approx. half every 24 hrs. -Continue Zosyn 4.5 g every 6 hours and will consider switching to oral equivalent once infectious markers significantly decreased. -Ordered PT and OT evaluation and treatment, pending. 3. Acute hyponatremia, present on admission. Resolving. -Likely related to sepsis with dehydration and hypovolemia, as well as, free water received with significant IV fluid resuscitation. -Continue to monitor sodium level closely. 4. Thrombocytopenia, present on admission. Improving. -Likely secondary to sepsis and somewhat dilutional due to IV fluid resuscitation. -Lovenox initially was held. Continue Lovenox 40 mg daily for DVT prophylaxis. Do not believe this is related to MELIZA Ab from lovenox use but will monitor trend closely. -Continue to monitor platelets closely. 5. Diabetes mellitus type I, chronic, present on admission. Stable. -Previous Hemoglobin A1c 8.7% 01/02. Repeat hemoglobin A1c, pending. -Patient reports highly variable blood sugars. Her sister's report noncompliance with diet with patient frequently eating candy bars. -Patient with no evidence of nephropathy, retinopathy or neuropathy, however, she does have fibromyalgia. -Continue Lantus at lower dose than home regimen of 20 units daily at bedtime and nutritional insulin 4-6 units three times daily with meals. -Continue [facility] blood glucose checks and low-dose correctional scale insulin. 6. Fibromyalgia and chronic pain with opiate dependence, present on admission. Stable. -Patient with history of fibromyalgia and spinal stenosis. -Continue home morphine ER 15 mg every 8 hours as needed and hydrocodone 5-325 mg three times daily as needed for breakthrough pain. 7. Hyperlipidemia, chronic, present on admission. Stable. -Continue atorvastatin 20 mg daily. 8. Hypothyroidism, chronic, present on admission. Stable. -Ordered TSH with free T4 reflex, pending. -Continue levothyroxine 112 mg daily. 9. Sjogren's syndrome, chronic, present on admission. Stable. -Continue usual home cevimeline 30 mg three times daily to increase salivation. 10. Gastroesophageal reflux disorder, chronic, present on admission. Stable. -Continue protonix 20 mg daily. 11. Depression, chronic, present on admission. Stable. -Patient recently lost both her daughter and mother but without overt symptoms of depression. -Continue bupropion 150 mg extended release daily and escitalopram 40 mg daily. 12. Left lower extremity venous stasis without ulceration or evidence of infection, present on admission. Stable. -Patient presented with dry, hemosiderin deposited skin without open ulceration or wound. -Continue to monitor closely. Disposition: Patient likely to discharge in 1-2 days depending upon improvement with treatment of pneumonia and improvement in mobility. Quality VTE Deep Vein Thrombosis/Pulmonary Embolism Present on Admission: No
[2019-03-25 08:16] LABS: Magnesium 1.8 mg/dL (1.6-2.3)
[2019-03-25 08:36] LABS: Procalcitonin 12.36 ng/mL (<0.5)
[2019-03-25] MEDS: POTASSIUM CHLORIDE 60 MEQ in SODIUM CHLORIDE 0.9% 500 ML 88.333 ML IV (08:59)
[2019-03-25] MEDS: SODIUM CHLORIDE 0.9% FLUSH 10 ML IV (09:00)
[2019-03-25] MEDS: PANTOPRAZOLE 20 MG TABLET PO (09:06)
[2019-03-25] MEDS: ACETAMINOPHEN 325 MG TABLET 650 MG PO (09:06)
[2019-03-25] MEDS: ESCITALOPRAM 10 MG TABLET 40 MG PO (09:07)
[2019-03-25] MEDS: LEVOTHYROXINE 112 MCG TABLET PO (09:07)
[2019-03-25] MEDS: ATORVASTATIN 20 MG TABLET PO (09:07)
[2019-03-25] MEDS: buPROPion XL 150 MG TAB PO (09:07)
[2019-03-25] MEDS: ALPRAZolam 0.25 MG TABLET 0.5 MG PO (09:07)
[2019-03-25] MEDS: ENOXAPARIN 40 MG/0.4 ML SYRINGE SUBCUT (09:32)
--- NOTE | 2019-03-25 11:18 | PT.IPTN ---
Current Diagnoses Sepsis, unspecified organism (03/22/19) Physical Therapy Treatment Note M2 PT-IP Current Condition Start: 03/24/19 11:50 Freq: NEEDED Status: Active Protocol: Document 03/24/19 11:25 HH (Rec: 03/24/19 12:10 [email or web address]) Physical Therapy Current Condition Current Condition Evaluation Date 03/24/19 Treatment Diagnosis Severe sepsis, B PNA, UTI, generalized muscle weakness Onset Date 03/22/19 Weight Bearing Status Weight Bearing Status Weight Bear as Tolerated M3 PT-IP Subjective Start: 03/24/19 11:50 Freq: NEEDED Status: Active Protocol: Document 03/25/19 11:10 HH (Rec: 03/25/19 11:18 [id number]) Subjective Physical Therapy Visit Type Type Treatment Note Visit Start Time 10:45 Visit Stop Time 11:00 Total Visit Minutes 15 Notes Gene at bedside. Pt has been getting up to bathroom with FWW 1pa. Per RN, pt cont to be very drowsy. Number of CLEARING HAND Visits 0 Physical Therapy Visit Comments Patient Comments I am very sleepy today. Therapy Pain Assessment Pain When Pain Assessed At Rest Pain Present Pain Present Pain Reported Location generalized Intensity 4 Scale Used Anders-Vernon (Faces) Description Aching M4 PT-IP Mobility and Gait Start: 03/24/19 11:50 Freq: NEEDED Status: Active Protocol: Document 03/25/19 11:10 HH (Rec: 03/25/19 11:18 [id number]) PT-Transfer Assessment Sit to and From Stand Sit to and from Stand Minimal Assistance 1 Person Assistance Equipment Transfer Assistive Device Gait Belt Front Wheeled Walker Orthotic/Prosthetic Devices or Brace: No Transfers Transfer Destination Chair Transfer Technique Stand Step Pivot Transfer Ability Level of Assist Minimal Assistance 1 Person Assistance Use of Upper Extremities Comments Mobility Comments Pt up in chair upon assessment . Pt cont to be very drowsy. Educated pt regarding risks of getting DVT from prolonged bed bound. Pt was able to stand up with min A and FWW. Required cues to push off through chair armrest. Gait Assessment Gait Gait Assistance Required: Contact Guard Assist 1 Person Assist Distance (Feet) 7 Able to Maintain Weight Bearing Status Yes During Gait Assistive Devices Assistive Device Gait Belt Front Wheeled Walker Orthotic/Prosthetic Devices or Brace: No Gait Deviations General Gait Pattern Decreased Stride Length Decreased Feet Clearance Flexed Trunk Factors Limiting Gait Function Factors Limiting Gait Function Decreased Activity Tolerance Decreased Strength Pain Poor Balance Poor Safety Awareness Comments Gait Comments pt amb with FWW up to room door and returned to chair. Pt c/o B leg weakness, fatigue and pain during mobility. M5 PT-IP Objective Assessments Start: 03/24/19 11:50 Freq: NEEDED Status: Active Protocol: Document 03/24/19 11:25 (Rec: 03/24/19 12:10 [email or web address]) Orientation Orientation/Cognition Level of Alertness Alert Orientation Name Age Birthday Month Date Year Day of Week Place Situation Language Function Ability No Deficits Noted Safety Awareness Understands Safety Issues Memory Description No Deficits Noted Comments Pt appears very drowsy but able to respond appropriately with questions Gross Range of Motion Upper Extremity ROM Assessment Within Functional Limits Lower Extremity ROM Assessment Within Functional Limits Strength Upper Extremity Strength Assessment Bilaterally Impaired Lower Extremity Strength Assessment Bilaterally Impaired Comments Strength Comments B UEs and LEs = 3+/5 Coordination Assessment Gross Coordination Gross Coordination WNL Sensation Assessment Sensation Gross Sensation WNL Muscle Tone Muscle Tone WNL Yes M6 PT-IP Treatment Start: 03/24/19 11:50 Freq: NEEDED Status: Active Protocol: Document 03/24/19 11:25 (Rec: 03/24/19 12:10 [email or web address]) Physical Therapy Treatment Education Education Provided Safety M7 PT-IP Assessment and Plan Start: 03/24/19 11:50 Freq: NEEDED Status: Active Protocol: Document 03/25/19 11:10 (Rec: 03/25/19 11:18 [id number]) PT Summary Assessment and Plan Potential Rehabilitation Potential Good Status of Condition at Evaluation Evolving Summary Impairments Pain Strength Balance Bed Mobility Transfers Gait Activity Tolerance Assessment Summary Pt showed slight improvements in overall mobility but cont appears very drowsy and weak. Educated pt regarding risks of DVT or other complications from being bed/ chair bound. At this point, SNF would still be an ideal option for her to improve mobility. Goals Bed Mobility Goal Standby Assistance Transfer Goal Standby Assistance Front Wheeled Walker Gait Goal Standby Assistance Front Wheel Walker Gait Distance 50 Other Goals 1 DEMETRICE without rails Days to Meet Goals 10 Frequency of Treatment Frequency Of Treatment Once a Day Treatment Plan Physical Therapy Treatment Plan Bed Mobility Training Transfer Training Gait Training Therapeutic Exercise Balance Retraining Discharge Planning Hot or Cold Pack Other Recommendations and Next Treatment bed mob, transfer and gait Focus training as brianna Recommendations To Nursing Amount of Assist Needed 1 Person Assist Discharge Recommendations PT Discharge Recommendations SNF Rehab Other Discharge Recommendations Will cont assess her mobility status, but recommend short term rehab at SNF at this point. Equipment Needed for Home Before pt;s is unsure if pt Discharge has a FWW at home. FWW if pt goes home
[2019-03-25] MEDS: INSULIN ASPART 100 UNIT/ML INSULN PEN SUBCUT ×4 (12:42→16:54)
--- NOTE | 2019-03-25 12:53 | PC.NURSE ---
Pt is noted to be excessively drowsy. Dr. Hooper rounded and requested staff try to keep pt awake to regulate sleep/wake cycle. Pt states that she is unable to keep her eyes open and would like to rest. She further reports that her normal sleep schedule is [id number]. She easily awakens to verbal stimuli. She reports feeling generally weak/sick but moving all extremities independently to command with equal weakness. Was able to walk a few steps with fww/gait belt during physical therapy. Declines showering/hygiene care. Using call light appropriately.
--- NOTE | 2019-03-25 17:12 | OT.IP.TRT ---
Current Diagnoses Sepsis, unspecified organism (03/22/19) Occupational Therapy Treatment Note M3 OT- IP Subjective and Pain Start: 03/24/19 13:07 Freq: Status: Active Protocol: Document 03/25/19 17:08 [facility] (Rec: 03/25/19 17:12 [facility] [id number]) OT- Subjective Occupational Therapy Visit Type Type Administrative Note Notes Talked to pt for OT needs, pt states already able to do most ADL needs and able to shower today with only assist from nursing to wash her back. Pt already has all lower body adaptive equipment from last hospital visit. Therefore discharge OT orders as pt's family to be able to assist for ADl needs if needed. PT to continue to follow pt for mobility needs.
[2019-03-25] MEDS: INSULIN GLARGINE 100 UNIT/ML 3ML PEN 20 UNIT SUBCUT (20:39)
[2019-03-26] MEDS: PIPERACILLIN-TAZO 4.5 GM/100 ML FROZ.PIGGY IV ×3 (00:11→12:21)
[2019-03-26] MEDS: ACETAMINOPHEN 325 MG TABLET 650 MG PO (01:48)
[2019-03-26] MEDS: MORPHINE ER 15 MG TABLET PO ×2 (03:44→12:21)
[2019-03-26 06:17] LABS: Add Manual Diff / Slide Review NO; Basophils Absolute Auto 0 /uL (0-100); Basophils Percent Auto 0.3 % (0-2); Eosinophils Absolute Auto 200 /uL (0-450); Eosinophils Percent Auto 6.5 % (2-4); Lymphocytes Absolute Auto 1400 /uL (1100-4500); Lymphocytes Percent Auto 39.2 % (25-40); Mean Corpuscular HGB Conc 34.4 % (30-36); Mean Corpuscular Hemoglobin 29.3 PG (26-34); Mean Corpuscular Volume 85.2 fL (80-100); Monocytes Absolute Auto 200 /uL (0-900); Monocytes Percent Auto 6.6 % (3-14); Neutrophils Absolute Auto 1700 /uL (1500-7000); Neutrophils Percent Auto 47.4 % (50-75); Platelet Count 121 X10^3/uL (150-400); Red Blood Cell Count 3.76 X10^6/uL (4.0-5.2); Red Cell Distribution Width 13.5 % (11.6-14.8); White Blood Cell Count 3.6 X10^3/uL (4.5-11.0)
[2019-03-26 06:28] LABS: Alanine Aminotransferase 114 IU/L (9-52); Albumin 2.6 g/dL (3.5-5.0); Albumin Globulin Ratio 0.9 (1.0-2.8); Alkaline Phosphatase 87 U/L (38-126); Aspartate Aminotransferase 32 IU/L (14-36); Bilirubin Total 0.3 mg/dL (0.2-1.3); Blood Urea Nitrogen 10 mg/dL (7-17); Calcium 8.3 mg/dL (8.4-10.2); Carbon Dioxide 28 mmol/L (22-32); Chloride 103 mmol/L (98-107); Estimated Glomerular Filt Rate > 60.0 mL/min (>60); Glucose 105 mg/dL (80-110); HEMOLYSIS < 15 (0-50); Magnesium 1.7 mg/dL (1.6-2.3); Potassium 3.4 mmol/L (3.4-5.1); Sodium 137 mmol/L (137-145); Total Protein 5.6 g/dL (6.3-8.2)
[2019-03-26 06:35] LABS: Hemoglobin A1C% w Est Avg Glu 8.8 % (4.0-6.0)
[2019-03-26 06:41] LABS: Procalcitonin 5.35 ng/mL (<0.5)
[2019-03-26 06:54] LABS: TSH w/ Reflex to FT4 8.82 uIU/mL (0.47-4.68)
[2019-03-26 07:22] LABS: Free T4, Direct Thyroxine 0.98 ng/dL (0.78-2.19)
[2019-03-26 08:00] VITALS: BP 137/68; PULSE 54; RESP 16; TEMP 36.1; O2SAT 95
[2019-03-26] MEDS: HYDROCODONE/ACET 5/325 TABLET 1 TAB PO (08:02)
[2019-03-26 08:15] VITALS: O2SAT 95
[2019-03-26] MEDS: POTASSIUM CHLORIDE 10 MEQ TAB 40 MEQ PO (09:24)
[2019-03-26] MEDS: LEVOTHYROXINE 125 MCG TABLET PO (09:24)
[2019-03-26] MEDS: ALPRAZolam 0.25 MG TABLET 0.5 MG PO (09:24)
[2019-03-26] MEDS: buPROPion XL 150 MG TAB PO (09:25)
[2019-03-26] MEDS: ATORVASTATIN 20 MG TABLET PO (09:25)
[2019-03-26] MEDS: ENOXAPARIN 40 MG/0.4 ML SYRINGE SUBCUT (09:25)
[2019-03-26] MEDS: SODIUM CHLORIDE 0.9% FLUSH 10 ML IV (09:26)
[2019-03-26] MEDS: PANTOPRAZOLE 20 MG TABLET PO (09:26)
[2019-03-26] MEDS: ESCITALOPRAM 10 MG TABLET 40 MG PO (09:26)
[2019-03-26] MEDS: MAGNESIUM CHLORIDE 64 MG TABLET 128 MG PO (09:27)
--- NOTE | 2019-03-26 09:53 | CM.DPC ---
Addendum entered by Lindsay Buchanan LPN 03/26/19 12:19: Dr. Hooper has now highly recommended to pt and that they consider PT at home. This is now added to the orders and Face/Face document. Will include the PT/OT notes with the referral information. Addendum entered by Lindsay Buchanan LPN 03/26/19 11:51: Just received update from Dr. Hooper after she was updated on the PT session of this morning by KELLEE Martinez. She stated that pt has no skilled needs for a snf setting, she seemed to be doing markedly better today and was stable for the d/c to home today with HH as per prior discussion. Will now proceed with the [facility] referral process and follow prn. Addendum entered by Lindsay Buchanan LPN 03/26/19 10:08: Case discussed in Team Rounds. Updated team on earlier discusssion this morning with pt and her . Dr. Hooper states KELLEE Martinez is to see pt today and if she recommends snf that is what I will recommend. Will be following. Will not proceed with referral to [facility] until d/c plan is sorted out. Dr. Hooper has signed the Face/Face document in case of HH decision. Addendum entered by Lindsay Buchanan LPN 03/26/19 10:07: PRINCESS#2 presented to pt and Jamey and Jamey signed it at 0915. Original Note: DCP: continued: Spoke with Dr. Hooper this morning, 0800. She stated that she planned to d/c pt today, the dc order was in place and that HH was an option if pt would not accept a snf . Payer: [facility]. Had been updated yesterday afternoon by OT Kamryn who noted that pt had done very well in afternoon session and per OT was cleared for the home setting. Met then with pt and her Gene (Gurpreet Kirby) after being warned by HOLGER Irwin that Dr. Hooper had not yet told pt she would be discharged today. Introduced self and role. Pt was found sitting up in bed, looking very alert. She said she planned to go home at time of d/c, she would consider HH if Dr. Hooper wished this. She had [facility] RN in December in followup to wound vac treatment but they were no longer seeing her. She wishes to use this agency again. She did not wish to consider any therapy at home; is aware that she can request this when the HH RN sees her and if more disciplines are recommended. Both she and her confirm that he is retired and can provide any needed support. Pt does admit to being homebound, going out only to medical appointments. Pt is hopeful that she will be going today. She and her are waiting to see the physician. Will follow prn.
--- NOTE | 2019-03-26 11:30 | PT.IPTN ---
Current Diagnoses Sepsis, unspecified organism (03/22/19) Physical Therapy Treatment Note M2 PT-IP Current Condition Start: 03/24/19 11:50 Freq: NEEDED Status: Active Protocol: Document 03/24/19 11:25 HH (Rec: 03/24/19 12:10 HH [email or web address]) Physical Therapy Current Condition Current Condition Evaluation Date 03/24/19 Treatment Diagnosis Severe sepsis, B PNA, UTI, generalized muscle weakness Onset Date 03/22/19 Weight Bearing Status Weight Bearing Status Weight Bear as Tolerated M3 PT-IP Subjective Start: 03/24/19 11:50 Freq: NEEDED Status: Active Protocol: Document 03/26/19 11:30 GGD (Rec: 03/26/19 12:09 GGD [id number]) Subjective Physical Therapy Visit Type Type Treatment Note Visit Start Time 11:15 Visit Stop Time 11:31 Total Visit Minutes [address] HELPER Visits 1 Physical Therapy Visit Comments Patient Comments Pt willing to work with [employer] , she states that she is worried about going home. M4 PT-IP Mobility and Gait Start: 03/24/19 11:50 Freq: NEEDED Status: Active Protocol: Document 03/26/19 11:30 GGD (Rec: 03/26/19 12:09 GGD [id number]) PT-Bed Mobility Assessment Supine to Sit Supine to Sit Independent Head of Bed Elevated Sit to Supine Sit to Supine Independent Head of Bed Elevated Scooting Scooting to Edge of Bed Standby Assistance PT-Transfer Assessment Sit to and From Stand Sit to and from Stand Standby Assistance Use of Upper Extremities Equipment Transfer Assistive Device Gait Belt Front Wheeled Walker Orthotic/Prosthetic Devices or Brace: No Transfers Transfer Destination Bed Transfer Ability Level of Assist Standby Assistance Use of Upper Extremities Gait Assessment Gait Gait Assistance Required: Standby Assistance Contact Guard Assist Distance (Feet) 100 Able to Maintain Weight Bearing Status Yes During Gait Assistive Devices Assistive Device None Gait Belt Front Wheeled Walker Orthotic/Prosthetic Devices or Brace: No Gait Deviations General Gait Pattern Decreased Stride Length Decreased Feet Clearance Factors Limiting Gait Function Factors Limiting Gait Function Abnormal Tonal Influences Decreased Strength Pain Poor Safety Awareness Comments Gait Comments Pt ambulated 50 feet with FWW with SBA and then 50 feet without AD with CGA. Stair Climbing Assessment Evaluation Level of Assist On Stairs Standby Assistance Devices Stair Climbing Assistive Devices Right Railing Technique/Endurance Stair Climbing Direction Ascend and Descend Stair Climbing Technique Step to Step Number of Steps Climbed 1 Stair Climbing Set # Repetitions (reps) 1 M5 PT-IP Objective Assessments Start: 03/24/19 11:50 Freq: NEEDED Status: Active Protocol: Document 03/24/19 11:25 (Rec: 03/24/19 12:10 [email or web address]) Orientation Orientation/Cognition Level of Alertness Alert Orientation Name Age Birthday Month Date Year Day of Week Place Situation Language Function Ability No Deficits Noted Safety Awareness Understands Safety Issues Memory Description No Deficits Noted Comments Pt appears very drowsy but able to respond appropriately with questions Gross Range of Motion Upper Extremity ROM Assessment Within Functional Limits Lower Extremity ROM Assessment Within Functional Limits Strength Upper Extremity Strength Assessment Bilaterally Impaired Lower Extremity Strength Assessment Bilaterally Impaired Comments Strength Comments B UEs and LEs = 3+/5 Coordination Assessment Gross Coordination Gross Coordination WNL Sensation Assessment Sensation Gross Sensation WNL Muscle Tone Muscle Tone WNL Yes M6 PT-IP Treatment Start: 03/24/19 11:50 Freq: NEEDED Status: Active Protocol: Document 03/24/19 11:25 (Rec: 03/24/19 12:10 [email or web address]) Physical Therapy Treatment Education Education Provided Safety M7 PT-IP Assessment and Plan Start: 03/24/19 11:50 Freq: NEEDED Status: Active Protocol: Document 03/26/19 11:30 GGD (Rec: 03/26/19 12:09 GGD [id number]) PT Summary Assessment and Plan Summary Assessment Summary Pt improving with mobility. She was able to progress gait. She had improved stability with gait with FWW vs without AD. She was safe and stable with stair mobility. She did fatigue quickly with activity. She is safe for home D/C when medically stable with FWW. Frequency of Treatment Frequency Of Treatment Once a Day Treatment Plan Physical Therapy Treatment Plan Bed Mobility Training Transfer Training Gait Training Therapeutic Exercise Balance Retraining Discharge Planning Hot or Cold Pack Recommendations To Nursing Amount of Assist Needed 1 Person Assist Discharge Recommendations PT Discharge Recommendations Home with Assistance Home Health Equipment Needed for Home Before FWW Discharge
--- NOTE | 2019-03-26 12:32 | P.DS_ITS ---
History of Present Illness Date Patient Seen: 03/22/19 Chief complaint: FREEZING LEGS ACHE LIKE CRAZY Narrative: Written by Dr. Gong: Patient is a 68-year-old female with history of type 1 diabetes, fibromyalgia, venous stasis dermatitis, Sjogren syndrome presented to the emergency department due to acutely not feeling well. Earlier this afternoon she had sudden onset of rigors, weakness and fever. Temp was up to 103.1? in the ER. She was also tachycardic with heart rate in the 130s, initially hypertensive but dropped her BP to 90's systolic, respiratory rate 25-30, and room air pulse ox 89%. Also noted in atrial flutter rhythm with RVR and nonspecific ST and T-wave changes on EKG. She had labs and blood cultures drawn. She was resuscitated with normal saline 30 milliliters/kilogram and initiated wide-spectrum antibiotics. Labs notable for leukopenia with total WBC 1.2, lactate elevated at 3.3, magnesium low 1.4, potassium high 5.2 with creatinine 0.5, glucose 113, AST elevated 131 with normal bilirubin, procalcitonin 0.18. Urinalysis normal. Chest x-ray without infiltrate. Venous blood gas with pH 7.41. She did have 600 cc urinary retention and Bah catheter placed in the ER. Patient denies headache, sinus pain, sore throat, cough, abdominal pain, or urinary pain. She has had nausea without vomiting. She complained to her of a few raised but not painful bumps above her elbow. She has chronic venous stasis of the left lower leg but has not noticed significant change in appearance of the skin. In December of this year she was admitted with sepsis due to acute cholangitis and had her gallbladder removed. She also had a right-sided seroma as a result of lymph node biopsy which was incised and drained and subsequently healed with wound VAC. Discharge Providers Date of admission: 03/22/19 18:30 Discharge Date: 03/26/19 Primary care physician: Brittany Warner MD Consults: 03/23/19 01:33 Consult to Respiratory Therapy Evaluate & Treat Comment: Physician Instructions: Evaluate and treat 03/24/19 10:31 Consult to Occupational Therapy Evaluate & Treat Comment: Physician Instructions: Evaluate and treat Consult to Physical Therapy Evaluate & Treat Comment: Physician Instructions: Evaluate and Treat 03/26/19 11:55 Consult to Physical Therapy Evaluate & Treat Comment: FWW for home use. Physician Instructions: Evaluate and Treat 03/26/19 12:06 Consult to Home Health Routine Comment: Reason For Exam: WENDY RN at dc Discharge provider: Lucy Hooper DO Summary Discharge Diagnosis: 1. Septic shock, present on admission. Resolved. 2. Bilateral bacterial community-acquired pneumonia, present on admission. Resolving. 3. Acute hypoxemic respiratory failure, present on admission. Resolved. 4. Acute hyponatremia, present on admission. Resolved. 5. Acute thrombocytopenia, present on admission. Resolving. 6. Acute ischemic transaminitis, secondary to hypoperfusion from septic shock, present on admission. Resolving. 7. Diabetes mellitus type I, chronic, present on admission. Stable. 8. Fibromyalgia and chronic pain with opiate dependence, present on admission. Stable. 9. Depression, chronic, present on admission. Active. 10. Hypothyroidism, chronic, present on admission. Stable. 11. Sjogren's syndrome, chronic, present on admission. Stable. 12. Gastroesophageal reflux disorder, chronic, present on admission. Stable. 13. Hyperlipidemia, chronic, present on admission. Stable. 14. Left lower extremity venous stasis without ulceration or evidence of infection, present on admission. Stable. Hospital Course: Alissa Kirby is a 68-year-old female patient with a past medical history significant for diabetes mellitus type 1, hyperlipidemia, hypothyroidism, meningioma, Sjogren syndrome, fibromyalgia, venous stasis dermatitis who presented for septic shock secondary to bilateral pneumonia. 1. Septic shock, present on admission. Resolved. -Patient presented febrile (Temp 101? F), tachycardic (HR 116), tachypneic (RR 26), leukopenic (WBC 1.9), procalcitonin 37.27, lactic acidosis 3.3, with organ dysfunction of hypotension (BP 83/36) which became unresponsive to IV fluids and Levophed was initiated for septic shock. Source bilateral bacterial community- acquired pneumonia. -Early goal-directed therapy met including: IV fluid hydration and broad- spectrum antibiotics. -Continued to trend lactic acid every 2 hours until under 2.0. 2. Bilateral bacterial community-acquired pneumonia, present on admission. Resolving. -CTA chest demonstrated bibasilar pneumonia L>R with bilateral pleural effusions. No PE. -Patient required extensive IV fluid hydration in addition to the norepinephrine for blood pressure support. Both of which have been discontinued/tapered off. -Ordered complete pneumonia workup including: Respiratory viral PCR negative. Strep pneumoniae and Legionella urine antigens, pending aas these are send outs. Sputum culture not obtained. Blood culture x2 has no growth to date. -Continued to monitor WBC which is close to normal and PCT which is trending do wn to normal. -Continued Zosyn 4.5 g every 6 hours. Discharged on Augmentin twice daily for 6 additional days to complete 10 day course of antibiotics total. -Continued PT evaluation and treatment. Discharge home with forward wheeled walker and home health for physical therapy and nursing needs. 3. Acute hypoxemic respiratory failure, present on admission. Resolved. -Initially ABG demonstrated pH 7.41, pCO2 44.2, PO2 43, HC03 28, SpO2 79% on FiO2 0.21. -Consulted respiratory therapy for evaluation and treatment. Continued supplemental oxygen to keep oxygen saturations 88-92%. No longer required oxygen from 02/20/19. -Treated underlying cause as above. 4. Acute hyponatremia, present on admission. Resolved. -Likely related to sepsis with dehydration and hypovolemia, as well as, free water received with significant IV fluid resuscitation. -Continued to monitor sodium level closely. Sodium level 137 at discharge. 5. Acute thrombocytopenia, present on admission. Resolving. -Secondary to sepsis and infectious process, as well as, dilutional due to significant IV fluid resuscitation. -Lovenox initially was held. Continued Lovenox 40 mg daily for DVT prophylaxis. This was not associated to MELIZA Ab from lovenox use as timing and trend do not coincide. -Continued to monitor platelets closely. 6. Acute ischemic transaminitis, secondary to hypoperfusion from septic shock, present on admission. Resolving. -Initial ALT 304 and AST 654. LFTs trended down and normalized. -Continued to optimize liver perfusion. 7. Diabetes mellitus type I, chronic, present on admission. Stable. -Hemoglobin A1c 8.8% indicative of poor glycemic control. -Patient reports highly variable blood sugars. Her sister's report noncompliance with diet with patient frequently eating candy bars. -Patient with no evidence of nephropathy, retinopathy or neuropathy, however, she does have fibromyalgia. -Continued Lantus at lower dose than home regimen of 20 units daily at bedtime and nutritional insulin 4-6 units three times daily with meals. -Continued [facility] blood glucose checks and low-dose correctional scale insulin. -Recommended outpatient referral to Endocrinology, diabetic education, and dietitian per PCP. 8. Fibromyalgia and chronic pain with opiate dependence, present on admission. Stable. -Patient with history of fibromyalgia and spinal stenosis. -Continued home morphine ER 15 mg every 8 hours as needed and hydrocodone 5-325 mg three times daily as needed for breakthrough pain. 9. Depression, chronic, present on admission. Active. -Patient recently lost her daughter, mother, and father. Additionally she has had several hospitalizations for cellulitis, ascending cholangitis and now pneumonia. Patient admits to depressed mood, hypersomnolence, lack of energy and motivation. -Continued bupropion 150 mg extended release daily and escitalopram 40 mg daily. Highly recommended counseling and possibly grief support group through [facility]. 10. Hypothyroidism, chronic, present on admission. Stable. -TSH elevated at 8.82, and free T4 normal at 0.98 indicative of subclinical hypothyroidism. -Increased levothyroxine from 112 mcg to 125 mcg daily. Recommended repeat thyroid function test in 4-6 weeks per PCP. 11. Sjogren's syndrome, chronic, present on admission. Stable. -Continued usual home cevimeline 30 mg three times daily to increase salivation. 12. Gastroesophageal reflux disorder, chronic, present on admission. Stable. -Continued protonix 20 mg daily. 13. Hyperlipidemia, chronic, present on admission. Stable. -Continued atorvastatin 20 mg daily. 14. Left lower extremity venous stasis without ulceration or evidence of infection, present on admission. Stable. -Patient presented with dry, hemosiderin deposited skin on left lower leg without open ulceration or wound. -Placed compression stocking on left leg. -Continued to monitor closely. Exam Vital Signs (past 8 hours): - 03/26/19 08:00 03/26/19 08:15 Temperature 97.0 F L Pulse Rate 54 L Respiratory Rate 16 Blood Pressure 137/68 Pulse Oximetry 95 95 Oxygen Delivery Method Room Air Oxygen Flow Rate 0 Narrative Exam Narrative: General: Older female sitting in bed and in no acute distress, appears older than stated age and chronically ill, appropriately interactive. HEENT: Normocephalic, atraumatic. External ears without defect. Pupils equal, round, and reactive to light. Anicteric sclerae, moist conjunctivae, and no lid lag. Oropharynx free of erythema and cobble stoning with moist mucosa. Neck: Supple with full range of motion. No lymphadenopathy or thyromegaly. Cardiovascular: Regular rate and rhythm without murmurs, rubs, or gallops appreciated. Pulmonary: Diminished throughout but clear to auscultation bilaterally. No rhonchi, crackles or wheeze. Normal respiratory effort with no use of ac cessory muscles. Abdomen: Soft, bowel sounds present, nontender, nondistended. No hepatosplenomegaly or masses appreciated. Extremities: No clubbing, cyanosis, or edema. Skin: Normal temperature, turgor, and texture; no rash, ulcers, or subcutaneous nodules appreciated. Neurological: Cranial nerves grossly intact. Generalized weakness present. Psychiatric: Depressed mood and flat affect. Appears alert and oriented to person, place, and time. Objective Labs Result Diagrams: 03/26/19 05:50 03/26/19 05:50 Labs: Laboratory Results - last 24 hr 03/26/19 03/26/19 03/26/19 05:50 05:50 05:50 WBC 3.6 L RBC 3.76 L Hgb 11.0 L Hct 32.0 L MCV 85.2 MCH 29.3 MCHC 34.4 RDW 13.5 Plt Count 121 L Neut % (Auto) 47.4 L Lymph % (Auto) 39.2 Towner % (Auto) 6.6 Eos % (Auto) 6.5 H Baso % (Auto) 0.3 Neut # (Auto) 1700 Lymph # (Auto) 1400 Towner # (Auto) 200 Eos # (Auto) 200 Baso # (Auto) 0 Sodium 137 Potassium 3.4 Chloride 103 Carbon Dioxide 28 BUN 10 Creatinine 0.40 L Estimated GFR > 60.0 BUN/Creatinine Ratio 25.0 H Glucose 105 Hemoglobin A1c Calcium 8.3 L Magnesium 1.7 Total Bilirubin 0.3 AST 32 ALT 114 H Alkaline Phosphatase 87 Total Protein 5.6 L Albumin 2.6 L Globulin 3.0 Albumin/Globulin Ratio 0.9 L Procalcitonin 5.35 H TSH Free T4 03/26/19 03/26/19 05:50 05:50 WBC RBC Hgb Hct MCV MCH MCHC RDW Plt Count Neut % (Auto) Lymph % (Auto) Towner % (Auto) Eos % (Auto) Baso % (Auto) Neut # (Auto) Lymph # (Auto) Towner # (Auto) Eos # (Auto) Baso # (Auto) Sodium Potassium Chloride Carbon Dioxide BUN Creatinine Estimated GFR BUN/Creatinine Ratio Glucose Hemoglobin A1c 8.8 H Calcium Magnesium Total Bilirubin AST ALT Alkaline Phosphatase Total Protein Albumin Globulin Albumin/Globulin Ratio Procalcitonin TSH 8.82 H Free T4 0.98 Discharge Plan Discharge Plan Patient Disposition: Home Health Service Transfer to: [facility] Discharge comment: You are being discharged home with home health for physical therapy and nursing needs. You were prescribed Augmentin twice daily for 6 additional days to complete a total 10 day course of antibiotics. Please follow- up with your PCP, Dr. Warner, in the next 3-5 days regarding your hospitalization. Your thyroid hormone has been increased from 112 mcg to 125 mcg daily 30 minutes to 1 hour before breakfast. Please have your thyroid function checked in 4-6 weeks by your PCP. Your diabetes needs to be under better control so that you are not as prone to infections and I highly recommend referral to Endocrinology, diabetic education, and dietitian. I highly recommend counseling regarding your grief around your recent loss of your daughter, mother and father, as well as, your depression. You may contact [facility] at [phone] regarding a grief support group if available. Discharge Med Rec/Prescriptions Prescriptions: New amoxicillin-pot clavulanate [Augmentin] 875-125 mg tablet 1 tab PO BID Qty: 12 RF: 0 levothyroxine 125 mcg capsule 125 mcg PO DAILY Qty: 30 RF: 0 Continued omeprazole 20 mg Capsule,Delayed Release(Dr/Ec) 20 mg PO DAILY Qty: 0 RF: 0 escitalopram oxalate [Lexapro] 20 mg Tablet 40 mg PO DAILY Qty: 0 RF: 0 cevimeline 30 mg Capsule 30 mg PO TID RF: 0 lisinopril 2.5 mg Tablet 2.5 mg PO DAILY RF: 0 Novolog Flexpen U-100 Insulin 100 unit/mL Insulin Pen 4 - 6 unit SUBCUT AC RF: 0 hydrocodone-acetaminophen 5-325 mg Tablet 1 tab PO TID Qty: 0 RF: 0 Lantus Solostar U-100 Insulin 100 unit/mL (3 mL) insulin pen 30 unit SUBCUT BEDTIME RF: 0 atorvastatin 20 mg Tablet 20 mg PO DAILY RF: 0 morphine [MS Contin] 15 mg tablet extended release 15 mg PO Q8H Qty: 30 RF: 0 furosemide 40 mg Tablet 40 mg PO DAILY RF: 0 potassium chloride 10 mEq Capsule, Extended Release 10 meq PO DAILY RF: 0 bupropion HCl 150 mg Tablet Extended Release 24 Hr 150 mg PO QAM RF: 0 Changed alprazolam 0.5 mg tablet 0.5 mg PO BEDTIME Qty: 0 RF: 0 Follow up/Referrals: Brittany Warner MD [Primary Care Provider] - 1 Week (Call on Thursday to make follow- up appointment.) Provider Discharge Instructions Diet: Diet as Tolerated, Carb-consistent/Diabetic, Low-fat, Low-sodium and Low- cholesterol Activity: Activity as tolerated with walker and physical therapy Visit Report/Discharge Packet Instructions: DI for Pneumonia -- Adult, DI for Sepsis -- Adult, Amoxicillin/Clavulanate Potassium (By mouth) Discharge Data Primary Care Provider: Brittany Warner Attending Provider: William Gong Admit Date/Time: 03/22/19 18:30 Discharges patient from system. Discharge Date/Time: 03/26/19 14:00 Quality VTE Deep Vein Thrombosis/Pulmonary Embolism Present on Admission: No
[2019-03-28 20:46] LABS: Strep pneumoniae Ag, Urine NOT DETECTED (NOT DETECTED)
== END 2019-03-26 14:00 | disposition home health service (06) | DRG 871 ==
LOC: ED 18:28 → ICU 03-23 07:42
PROVIDERS: Internal Medicine; Nurse Practitioner Gerontology; Admitting Provider Internal Medicine; Emergency Provider Emergency Medicine; Family Provider Internal Medicine; PCP Internal Medicine; Visit Provider Internal Medicine
DX: A41.9 Sepsis, unspecified organism (principal); R65.21 Severe sepsis with septic shock; J18.9 Pneumonia, unspecified organism; J96.01 Acute respiratory failure with hypoxia; I48.92 Unspecified atrial flutter; E87.1 Hypo-osmolality and hyponatremia; E83.42 Hypomagnesemia; D69.6 Thrombocytopenia, unspecified; R33.9 Retention of urine, unspecified; E10.9 Type 1 diabetes mellitus without complications; M79.7 Fibromyalgia; F32.9 Major depressive disorder, single episode, unspecified; E03.9 Hypothyroidism, unspecified; K21.9 Gastro-esophageal reflux disease without esophagitis; E78.5 Hyperlipidemia, unspecified; M35.00 Sjogren syndrome, unspecified; Z87.891 Personal history of nicotine dependence; G89.29 Other chronic pain
CPT/HCPCS: 36415; 36569; 36591; 36592; 36600; 51701; 51798; 71045; 71260; 74177; 80048; 80053; 80202; 81001; 82009; 82805; 82962; 83036; 83605; 83690; 83735; 83880; 84100; 84145; 84439; 84443; 85025; 85610; 85730; 87040; 87449; 87633; 87797; 93005; 94667; 96365; 96367; 96375; 97116; 97162; 97530; 99285; 99291; 99406; J1642; J1650; J1885; J2270; J2405; J2543; J3480; Q9967

== ENCOUNTER 2019-04-24 22:18 | Emergency (ER) | payer OTHER, SELFPAY ==
[2019-03-22 19:09] VITALS: BMI 28.0
[2019-04-24 22:35] VITALS: BP 107/61; PULSE 79; RESP 16; TEMP 36.8; O2SAT 96; BMI 26.6
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
== END 2019-04-24 23:13 | disposition left against medical advice (07) ==
PROVIDERS: Emergency Provider Emergency Medicine; Family Provider Internal Medicine; PCP Internal Medicine
DX: M54.9 Dorsalgia, unspecified (principal)
CPT/HCPCS: 99282

== ENCOUNTER 2019-04-25 17:45 | Emergency (ER) | payer OTHER, SELFPAY ==
[2019-03-22 19:09] VITALS: BMI 28.0
[2019-04-25 17:47] VITALS: BP 119/69; PULSE 84; RESP 20; TEMP 36.7; O2SAT 97
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
[2019-04-25 18:49] VITALS: BP 119/54; PULSE 70; RESP 18; O2SAT 99
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
[2019-04-25 19:25] VITALS: BP 112/52; PULSE 78; RESP 15; O2SAT 99
[2019-04-25 20:30] VITALS: BP 124/63; PULSE 78; RESP 16; O2SAT 99
== END 2019-04-25 20:35 | disposition home or self-care (01) ==
PROVIDERS: Emergency Provider Emergency Medicine; Family Provider Internal Medicine; PCP Internal Medicine
DX: S16.1XXA Strain of muscle, fascia and tendon at neck level, initial encounter (principal); M54.6 Pain in thoracic spine; L03.116 Cellulitis of left lower limb; V49.59XA Passenger injured in collision with other motor vehicles in traffic accident, initial encounter
CPT/HCPCS: 72072; 99283

== ENCOUNTER 2019-04-28 13:45 | Emergency (ER) | payer OTHER, SELFPAY ==
[2019-03-22 19:09] VITALS: BMI 28.0
[2019-04-28 13:58] VITALS: BP 110/93; PULSE 74; RESP 18; TEMP 36.8; O2SAT 96; BMI 26.6
[2019-04-28] MEDS: ONDANSETRON 4 MG ODT SL (15:01)
--- NOTE | 2019-04-28 15:05 | ED.EXTPRO ---
HPI - Extremity Problem General Chief complaint: Extremity Problem,Nontraumatic Stated complaint: infection in groin, feeling terrible, Diabetic T1 Time Seen by Provider: 04/28/19 14:34 Source: patient Mode of arrival: ambulatory Limitations: no limitations History of Present Illness HPI Narrative: Patient comes emergency department complaining of an infection of the skin her right inguinal area. She denies fevers or chills. She just noticed the redness today. Patient states she has been nauseated and occasionally vomiting since starting doxycycline for cellulitis about a week ago. She states her cellulitis is slowly improving however. The patient is a type 1 diabetic, and denies any other issues with her diabetes recently. No other complaints this time. Related Data Home Medications Medication Instructions Recorded Confirmed escitalopram oxalate [Lexapro] 40 mg PO DAILY #0 03/16/10 03/22/19 omeprazole 20 mg PO DAILY #0 03/16/10 03/22/19 Novolog Flexpen U-100 Insulin 4 - 6 unit SUBCUT AC 06/24/18 03/23/19 cevimeline 30 mg PO TID 06/24/18 03/22/19 lisinopril 2.5 mg PO DAILY 06/24/18 03/22/19 Lantus Solostar U-100 Insulin 30 unit SUBCUT BEDTIME 01/03/19 03/23/19 atorvastatin 20 mg PO DAILY 01/03/19 03/22/19 bupropion HCl 150 mg PO QAM 03/22/19 03/22/19 furosemide 40 mg PO DAILY 03/22/19 03/22/19 potassium chloride 10 meq PO DAILY 03/22/19 03/22/19 Previous Rx's Medication Instructions Recorded hydrocodone-acetaminophen 1 tab PO TID #0 tab 06/27/18 morphine [MS Contin] 15 mg PO Q8H #30 tab 01/09/19 alprazolam 0.5 mg PO BEDTIME #0 tab 03/26/19 amoxicillin-pot clavulanate 1 tab PO BID #12 tab 03/26/19 [Augmentin] levothyroxine 125 mcg PO DAILY #30 cap 03/26/19 cyclobenzaprine 10 mg PO TID PRN #10 tab 04/25/19 doxycycline hyclate 100 mg PO BID #20 tab 04/25/19 fluconazole [Diflucan] 150 mg PO DAILY 2 Days #2 tab 04/28/19 nystatin 1 applictn TOP TID #30 gram 04/28/19 ondansetron 4 mg PO Q6H PRN #20 tab 04/28/19 Allergies Allergy/AdvReac Type Severity Reaction Status Date / Time sulfamethoxazole Allergy Verified 04/28/19 13:58 [From Bactrim] trimethoprim [From Bactrim] Allergy Verified 04/28/19 13:58 Review of Systems Review of Systems ROS Unobtainable: All systems reviewed & are unremarkable except as noted in HPI and below Constitutional Constitutional: Denies chills, Denies fatigue, Denies fever(s), Denies frequent falls, Denies lethargy and Denies weakness Eyes Eyes: Denies change in vision, Denies eye discharge, Denies irritation and Denies loss of vision ENT Ears, Nose, Mouth, and Throat: Denies change in voice, Denies dizziness, Denies neck pain, Denies sore throat and Denies throat swelling Cardiovascular Cardiovascular: Denies chest pain, Denies irregular heart rhythm, Denies lightheadedness, Denies palpitations, Denies dyspnea, Denies dyspnea on exertion and Denies orthopnea Respiratory Respiratory: Denies cough, Denies dyspnea, Denies dyspnea on exertion and Denies wheezing Gastrointestinal Gastrointestinal: Denies abdominal pain, Denies change in bowel habits, Denies diarrhea, Reports nausea and Reports vomiting Genitourinary Genitourinary: Denies hematuria, Denies flank pain, Denies urinary incontinence and Denies urinary urgency Musculoskeletal Musculoskeletal: Denies back pain, Denies muscle weakness, Denies neck pain, Denies numbness and Denies tingling Integumentary/Breasts Skin/Breast: Denies pruritus, Denies erythema, Reports rash and Denies wounds Neurologic Neurologic: Denies behavioral changes, Denies confusion, Denies dizziness, Denies frequent falls, Denies loss of vision, Denies numbness, Denies tingling and Denies weakness Psychiatric Psychiatric: Denies anxiety, Denies behavioral changes, Denies confusion, Denies depression, Denies homicidal ideation and Denies suicidal ideation Endocrine Endocrine: Denies fatigue, Denies flushing and Denies palpitations Hematologic/Lymphatic Hematologic/Lymphatic: Denies easy bruising Allergic/Immunologic Allergic/Immunologic: Denies urticaria, Denies throat swelling and Denies wheezing PFSH Medical History Depression (Chronic) Diabetes (Chronic) Fibromyalgia (Acute) Fibromyalgia (Chronic) GERD (gastroesophageal reflux disease) (Chronic) Hyperlipidemia (Chronic) Hypothyroidism (Chronic) Meningioma (Chronic) Restless leg syndrome (Chronic) Sjogren's disease (Chronic) Sleep apnea (Chronic) Spinal stenosis, lumbar (Chronic) Venous stasis dermatitis of both lower extremities (Chronic) Surgical History H/O total hysterectomy (Resolved) History of cholecystectomy (Resolved) History of lymph node biopsy (Acute) Social History household members: spouse and family Smoking Status: Current every day smoker alcohol intake: current Social History household members: spouse and family Smoking Status: Current every day smoker alcohol intake: current Exam Initial Vital Signs Initial Vital Signs: Vital Signs Temperature 98.2 F 04/28/19 13:58 Pulse Rate 74 04/28/19 13:58 Respiratory Rate 18 04/28/19 13:58 Blood Pressure 110/93 H 04/28/19 13:58 Pulse Oximetry 96 04/28/19 13:58 Const General: cooperative and well developed Nutritional Appearance: well nourished Orientation: alert, awake, oriented x3 and not confused [facility] Head: normocephalic and atraumatic Ears: external ears normal Nose: external nose normal and No nasal discharge Face and sinus: face symmetric and No dry mucous membranes Mouth: oral mucosae normal and moist mucous membranes Teeth and gingiva: dentition normal Eyes General: appearance normal, both eyes and all related structures Eyelids: eyelids normal Conjunctivae: conjunctivae normal Sclera: sclerae normal Pupils: PERRL EOM: EOM intact bilaterally Neck Neck: normal visual inspection, trachea midline, No lymphadenopathy, No midline deformity and No JVD Lymphatic: No lymphedema Chest Chest: normal inspection of the chest Resp Effort & Inspection: normal respiratory effort, able to speak in complete sentences, no respiratory distress and no use of accessory muscles Auscultation: clear to auscultation bilaterally, no rales, no rhonchi and no wheezes Cardio Rate: regular rate Rhythm: regular rhythm Heart Sounds: no click, no gallops, no murmurs and no rubs Pulses: normal peripheral pulses GI Inspection: non-distended Palpation: soft, no hepatosplenomegaly, No guarding, No pulsatile mass and No tender Auscultation: normal bowel sounds Back/Spine/Pelvis Back: No CVA tenderness Cervical Spine: cervical ROM normal and No pain with cervical ROM Thoracic/Lumbar Spine: thoracic and lumbar spine normal to inspection Skin General: No jaundice and No petechiae Other: Patient has an approximately 6 x 8 cm patch of intense erythema with satellite lesions along the inguinal fold, involving her small pannus. Neuro General: alert, oriented x3, gait normal and no focal motor deficits Speech: speech normal Extrem General: full ROM, no clubbing, cyanosis or edema, no pedal edema and no calf tenderness Psych Appearance: well kempt Mental Status: mental status grossly normal Attitude: cooperative Thought Content: normal and suicidality Judgment: judgment good Course Course Course Narrative: I discussed with the patient that her rash appears consistent with Reina. I will give her prescription for anti candidal powder, as well as for Zofran for her nausea. We have discussed home management of the symptoms, as well as the usual indications for return. Orders Ordered: Discontinued Medications Ondansetron HCl (Zofran Odt) 4 mg SL NOW ONE Stop: 04/28/19 14:54 Last Admin: 04/28/19 15:01 Dose: 4 mg Documented by: JOSEPH Vital Signs Vital signs: Vital Signs - 8 hr 04/28/19 13:58 Temperature 98.2 F Pulse Rate 74 Respiratory Rate 18 Blood Pressure 110/93 H Pulse Oximetry 96 MDM - Extremity (Nontraumatic) Medical Records Attestation: I reviewed the patient's medical records. Lab Data Labs: Urine Dip Bedside Urine Glucose 100 mg/dl Bedside Urine Bilirubin - Negative Bedside Urine Ketone - Negative Urine Specific [place] 1.010 Bedside Urine Occult Blood - Negative Bedside Urine pH 6.5 Bedside Urine Protein - Negative Bedside Urine Urobilinogen - Negative Bedside Urine Nitrite - Negative Bedside Urine Leukocytes - Negative Esterase Discharge Plan Departure Patient Disposition: Home Clinical Impression: Candidal dermatitis, Nausea Discharge Date/Time: 04/28/19 15:36 Instructions: Yeast Infection-Skin Activity Restrictions/Additional Instructions: Your prescriptions have been electronically transmitted to [facility]. Prescriptions: New ondansetron 4 mg tablet,disintegrating 4 mg PO Q6H PRN (Reason: nausea and vomiting) Qty: 20 RF: 0 fluconazole [Diflucan] 150 mg tablet 150 mg PO DAILY 2 Days Qty: 2 RF: 0 nystatin 100,000 unit/gram powder 1 applictn TOP TID Qty: 30 RF: 0 No Action omeprazole 20 mg Capsule,Delayed Release(Dr/Ec) 20 mg PO DAILY Qty: 0 RF: 0 escitalopram oxalate [Lexapro] 20 mg Tablet 40 mg PO DAILY Qty: 0 RF: 0 cevimeline 30 mg Capsule 30 mg PO TID RF: 0 lisinopril 2.5 mg Tablet 2.5 mg PO DAILY RF: 0 Novolog Flexpen U-100 Insulin 100 unit/mL Insulin Pen 4 - 6 unit SUBCUT AC RF: 0 hydrocodone-acetaminophen 5-325 mg Tablet 1 tab PO TID Qty: 0 RF: 0 Lantus Solostar U-100 Insulin 100 unit/mL (3 mL) insulin pen 30 unit SUBCUT BEDTIME RF: 0 atorvastatin 20 mg Tablet 20 mg PO DAILY RF: 0 morphine [MS Contin] 15 mg tablet extended release 15 mg PO Q8H Qty: 30 RF: 0 cyclobenzaprine 10 mg tablet 10 mg PO TID PRN (Reason: muscle spasm) Qty: 10 RF: 0 doxycycline hyclate 100 mg tablet 100 mg PO BID Qty: 20 RF: 0 furosemide 40 mg Tablet 40 mg PO DAILY RF: 0 potassium chloride 10 mEq Capsule, Extended Release 10 meq PO DAILY RF: 0 bupropion HCl 150 mg Tablet Extended Release 24 Hr 150 mg PO QAM RF: 0 alprazolam 0.5 mg tablet 0.5 mg PO BEDTIME Qty: 0 RF: 0 amoxicillin-pot clavulanate [Augmentin] 875-125 mg tablet 1 tab PO BID Qty: 12 RF: 0 levothyroxine 125 mcg capsule 125 mcg PO DAILY Qty: 30 RF: 0 Referrals: Brittany Warner MD [Primary Care Provider] -
--- NOTE | 2019-04-28 15:35 | PC.NURSE ---
Pt has well healed scar from surgical excision of lymph node in the right groin. Redness/rash begins to the right of the scar and is itchy in nature.
[2019-04-28 15:36] VITALS: BP 139/63; PULSE 80; RESP 16; O2SAT 95
== END 2019-04-28 15:36 | disposition home or self-care (01) ==
PROVIDERS: Emergency Provider Emergency Medicine; PCP Internal Medicine
DX: B37.2 Candidiasis of skin and nail (principal); R11.0 Nausea
CPT/HCPCS: 81003; 99282; 99283

== ENCOUNTER → 2019-05-20 15:08 | Outpatient (CLI) | payer OTHER, SELFPAY ==
[2019-03-22 19:09] VITALS: BMI 28.0
--- NOTE | 2019-05-20 | DI.US.S_ITS ---
PROCEDURE: US PERIPH VENOUS LOW EXTREM BI INDICATIONS: EDEMA TECHNIQUE: Real-time imaging, as well as color and pulse Doppler interrogation, were performed of the deep veins of both legs from the inguinal ligament to the popliteal fossa. COMPARISON: None. FINDINGS: Right: The common femoral, femoral and popliteal veins are normally compressible, and free of intraluminal thrombus. Color and pulse Doppler demonstrate normal phasic intravascular flow. There is normal augmentation response to distal compression maneuver. Left: The common femoral, femoral and popliteal veins are normally compressible, and free of intraluminal thrombus. Color and pulse Doppler demonstrate normal phasic intravascular flow. There is normal augmentation response to distal compression maneuver. Multiple prominent benign-appearing lymph nodes are present in the left groin. The largest lymph node is 3.1 x 1.6 x 1.7 cm. It has a benign fatty hilum. IMPRESSION: No evidence DVT, bilateral lower extremities. Dictated by: Shawn Rowe M.D. on 05/20/2019 at 16:24 Approved by: Shawn Rowe M.D. on 05/20/2019 at 16:25
== END ==
PROVIDERS: PCP Internal Medicine; Visit Provider Internal Medicine
DX: R60.9 Edema, unspecified (principal); R59.0 Localized enlarged lymph nodes
CPT/HCPCS: 93970

== ENCOUNTER 2019-05-29 02:47 | Emergency (ER) | payer OTHER, SELFPAY ==
[2019-03-22 19:09] VITALS: BMI 28.0
[2019-05-29 02:57] VITALS: BP 104/65; PULSE 80; RESP 16; TEMP 36.7; O2SAT 97; BMI 26.3
--- NOTE | 2019-05-29 03:13 | ED_ITS ---
HPI - Skin/Abscess/Foreign Bdy General Chief complaint: Skin/Abscess/Foreign Body Stated complaint: cellulitis/drainage left leg itchiness/pain Time Seen by Provider: 05/29/19 03:00 Source: patient Mode of arrival: Ambulatory History of Present Illness HPI narrative: Patient is a 68-year-old female with history of type 1 diabetes, fibromyalgia, chronic venous stasis,Sjogrens syndrome presenting with left lower leg rash. She has had cellulitis of the left leg in the past and has required a wound VAC as well. She says over the last 3-5 days she has noticed increased redness and drainage from that leg. She actually was seen by her PCP yesterday she was prescribed for medication which she says never got to [facility] including 1 antibiotic. She says tonight it is worse. She denies fevers sweats or chills. complaint: rash Onset (ago): day(s) Location: LLE Severity: mild Related Data Home Medications Medication Instructions Recorded Confirmed escitalopram oxalate [Lexapro] 40 mg PO DAILY #0 03/16/10 03/22/19 omeprazole 20 mg PO DAILY #0 03/16/10 03/22/19 Novolog Flexpen U-100 Insulin 4 - 6 unit SUBCUT AC 06/24/18 03/23/19 cevimeline 30 mg PO TID 06/24/18 03/22/19 lisinopril 2.5 mg PO DAILY 06/24/18 03/22/19 Lantus Solostar U-100 Insulin 30 unit SUBCUT BEDTIME 01/03/19 03/23/19 atorvastatin 20 mg PO DAILY 01/03/19 03/22/19 bupropion HCl 150 mg PO QAM 03/22/19 03/22/19 furosemide 40 mg PO DAILY 03/22/19 03/22/19 potassium chloride 10 meq PO DAILY 03/22/19 03/22/19 Previous Rx's Medication Instructions Recorded hydrocodone-acetaminophen 1 tab PO TID #0 tab 06/27/18 morphine [MS Contin] 15 mg PO Q8H #30 tab 01/09/19 alprazolam 0.5 mg PO BEDTIME #0 tab 03/26/19 amoxicillin-pot clavulanate 1 tab PO BID #12 tab 03/26/19 [Augmentin] levothyroxine 125 mcg PO DAILY #30 cap 03/26/19 cyclobenzaprine 10 mg PO TID PRN #10 tab 04/25/19 doxycycline hyclate 100 mg PO BID #20 tab 04/25/19 fluconazole [Diflucan] 150 mg PO DAILY 2 Days #2 tab 04/28/19 nystatin 1 applictn TOP TID #30 gram 04/28/19 ondansetron 4 mg PO Q6H PRN #20 tab 04/28/19 cephalexin [Keflex] 500 mg PO TID #21 cap 05/29/19 Allergies Allergy/AdvReac Type Severity Reaction Status Date / Time sulfamethoxazole Allergy Verified 04/28/19 13:58 [From Bactrim] trimethoprim [From Bactrim] Allergy Verified 04/28/19 13:58 Review of Systems Review of Systems Narrative: GENERAL: Denies chills, fatigue, malaise, fever, sweats, travel HEENT: Denies sinus pain, ear pain, sore throat, difficulty swallowing, neck pain RESPIRATORY: Denies dyspnea, cough, wheezing, hemoptysis, sputum. CARDIOVASCULAR: Denies chest pain, palpitations, orthopnea, edema GASTROINTESTINAL: Denies nausea, vomiting, abdominal pain, diarrhea, constipation, melena. : Denies dysuria, frequency, incontinence, hematuria, urinary retention, flank pain. MUSCULOSKELETAL: Denies weakness, joint pain, or bony pain SKIN: See H NEUROLOGIC: Denies weakness, dizziness, headache, numbness, change in speech, confusion PSYCHIATRIC: No concerning psychosocial issues. 12 point review of systems is negative except for those stated above and HPI Patient History Medical/Surgical History Medical History Depression (Chronic) Diabetes (Chronic) Fibromyalgia (Acute) Fibromyalgia (Chronic) GERD (gastroesophageal reflux disease) (Chronic) Hyperlipidemia (Chronic) Hypothyroidism (Chronic) Meningioma (Chronic) Restless leg syndrome (Chronic) Sjogren's disease (Chronic) Sleep apnea (Chronic) Spinal stenosis, lumbar (Chronic) Venous stasis dermatitis of both lower extremities (Chronic) Surgical History H/O total hysterectomy (Resolved) History of cholecystectomy (Resolved) History of lymph node biopsy (Acute) Social History household members: spouse and family Smoking Status: Current every day smoker alcohol intake: current Family/Social History Social History household members: spouse and family Smoking Status: Current every day smoker alcohol intake: current alcohol intake frequency: 0-2 drinks per day Substance Use Type: does not use Exam Initial Vital Signs Initial Vital Signs: Vital Signs Temperature 98.1 F 05/29/19 02:57 Pulse Rate 80 05/29/19 02:57 Respiratory Rate 16 05/29/19 02:57 Blood Pressure 104/65 05/29/19 02:57 Pulse Oximetry 97 05/29/19 02:57 GENERAL: Well-appearing, well-nourished and in no acute distress. HEENT: Head atraumatic,EOMI, pupils reactive, face symmetric, moist mucous membranes CARDIOVASCULAR: Regular rate and rhythm without murmurs, rubs or gallops. RESPIRATORY: Breath sounds equal bilaterally, no wheezes rales or rhonchi. ABDOMEN: Soft, nontender. Normoactive bowel sounds all 4 quadrants. No guarding or rebound. EXTREMITIES: Normal range of motion, no clubbing or edema. Neurovascularly intact NEUROLOGICAL: Alert and oriented x4.Normal gait and speech. Cranial nerves II through XII grossly intact. SKIN: Left lower leg chronic wound is noted she does some mild drainage from it. However she has multiple scratches superior this wound up to the knee. She has blanchable erythema of the lower leg. Course Orders Ordered: ED Orders 05/29/19 03:16 Basic Metabolic Panel Stat Complete Blood Count AUTO DIFF Stat Procalcitonin Stat Discontinued Medications Cefazolin Sodium (Keflex 250 Mg Prepack) 1 bottle [facility] Stop: 05/29/19 03:44 Last Admin: 05/29/19 03:59 Dose: 500 mg Documented by: ANANYA Vital Signs Vital signs: Vital Signs - 8 hr 05/29/19 02:57 05/29/19 04:20 Temperature 98.1 F 98.1 F Pulse Rate 80 81 Respiratory Rate 16 16 Blood Pressure 104/65 113/48 L Pulse Oximetry 97 98 MDM - Skin/Abscess/Foreign Bdy Lab Data Attestation: I reviewed the patient's lab results. Result diagrams: 05/29/19 03:16 05/29/19 03:16 Labs: Lab Results 05/29/19 05/29/19 05/29/19 Range/Units 03:16 03:16 03:16 WBC 4.9 (4.5-11.0) X10^3/uL RBC 4.16 (4.0-5.2) X10^6/uL Hgb 12.1 (12.0-16.0) g/dL Hct 35.2 L (36-46) % MCV 84.8 (80-100) fL MCH 29.1 (26-34) PG MCHC 34.4 (30-36) % RDW 13.5 (11.6-14.8) % Plt Count 178 (150-400) X10^3/uL Neut % (Auto) 37.0 L (50-75) % Lymph % (Auto) 42.9 H (25-40) % [place] % (Auto) 10.8 (3-14) % Eos % (Auto) 9.2 H (2-4) % Baso % (Auto) 0.1 (0-2) % Neut # (Auto) 1800 (3356-8083) /uL Lymph # (Auto) 2100 (5072-0064) /uL [place] # (Auto) 500 (0-900) /uL Eos # (Auto) 500 H (0-450) /uL Baso # (Auto) 0 (0-100) /uL Sodium 137 (137-145) mmol/L Potassium 3.8 (3.4-5.1) mmol/L Chloride 96 L (98-107) mmol/L Carbon Dioxide 34 H (22-32) mmol/L BUN 16 (7-17) mg/dL Creatinine 0.50 L (0.52-1.04) mg/dL Estimated GFR > 60.0 (>60) mL/min BUN/Creatinine Ratio 32.0 H (6-22) Glucose 212 H (80-110) mg/dL Calcium 9.4 (8.4-10.2) mg/dL Procalcitonin < 0.05 (<0.5) ng/mL MDM Narrative Medical decision making narrative: Patient does have erythema on her legs she overall clinically looks well. She states that she was previously placed on doxycycline multiple times but states the last time it did not work. She is allergic temp back drawn no known history of MRSA. At this time will start with Keflex. I did tell her that her antibiotic may need to be changed if her symptoms and rash are worsening. She overall does not appear septic. Discharge Plan Departure Patient Disposition: Home Clinical Impression: Cellulitis of leg Qualifiers: Laterality: left Qualified Code(s): L03.116 - Cellulitis of left lower limb Discharge Date/Time: 05/29/19 04:19 Instructions: DI for Cellulitis -- Adult Activity Restrictions/Additional Instructions: *You have been diagnosed with cellulitis left leg *What to do: Monitor redness *Continue to take medications as directed Keflex 500 mg 3 times a day x 7 days *Follow up with your primary care provider in 2-3 days *Return to ER if you should have increasing redness, increasing drainage or any new, worsening or concerning symptoms Prescriptions: New cephalexin [Keflex] 500 mg capsule 500 mg PO TID Qty: 21 RF: 0 No Action omeprazole 20 mg Capsule,Delayed Release(Dr/Ec) 20 mg PO DAILY Qty: 0 RF: 0 escitalopram oxalate [Lexapro] 20 mg Tablet 40 mg PO DAILY Qty: 0 RF: 0 cevimeline 30 mg Capsule 30 mg PO TID RF: 0 lisinopril 2.5 mg Tablet 2.5 mg PO DAILY RF: 0 Novolog Flexpen U-100 Insulin 100 unit/mL Insulin Pen 4 - 6 unit SUBCUT AC RF: 0 hydrocodone-acetaminophen 5-325 mg Tablet 1 tab PO TID Qty: 0 RF: 0 Lantus Solostar U-100 Insulin 100 unit/mL (3 mL) insulin pen 30 unit SUBCUT BEDTIME RF: 0 atorvastatin 20 mg Tablet 20 mg PO DAILY RF: 0 morphine [MS Contin] 15 mg tablet extended release 15 mg PO Q8H Qty: 30 RF: 0 cyclobenzaprine 10 mg tablet 10 mg PO TID PRN (Reason: muscle spasm) Qty: 10 RF: 0 doxycycline hyclate 100 mg tablet 100 mg PO BID Qty: 20 RF: 0 ondansetron 4 mg tablet,disintegrating 4 mg PO Q6H PRN (Reason: nausea and vomiting) Qty: 20 RF: 0 fluconazole [Diflucan] 150 mg tablet 150 mg PO DAILY 2 Days Qty: 2 RF: 0 nystatin 100,000 unit/gram powder 1 applictn TOP TID Qty: 30 RF: 0 furosemide 40 mg Tablet 40 mg PO DAILY RF: 0 potassium chloride 10 mEq Capsule, Extended Release 10 meq PO DAILY RF: 0 bupropion HCl 150 mg Tablet Extended Release 24 Hr 150 mg PO QAM RF: 0 alprazolam 0.5 mg tablet 0.5 mg PO BEDTIME Qty: 0 RF: 0 amoxicillin-pot clavulanate [Augmentin] 875-125 mg tablet 1 tab PO BID Qty: 12 RF: 0 levothyroxine 125 mcg capsule 125 mcg PO DAILY Qty: 30 RF: 0 Referrals: Brittany Warner MD [Primary Care Provider] -
[2019-05-29 03:37] LABS: Add Manual Diff / Slide Review NO; Basophils Absolute Auto 0 /uL (0-100); Basophils Percent Auto 0.1 % (0-2); Eosinophils Absolute Auto 500 /uL (0-450); Eosinophils Percent Auto 9.2 % (2-4); Hematocrit 35.2 % (36-46); Hemoglobin 12.1 g/dL (12.0-16.0); Lymphocytes Absolute Auto 2100 /uL (1100-4500); Lymphocytes Percent Auto 42.9 % (25-40); Mean Corpuscular HGB Conc 34.4 % (30-36); Mean Corpuscular Hemoglobin 29.1 PG (26-34); Mean Corpuscular Volume 84.8 fL (80-100); Monocytes Absolute Auto 500 /uL (0-900); Monocytes Percent Auto 10.8 % (3-14); Neutrophils Absolute Auto 1800 /uL (1500-7000); Platelet Count 178 X10^3/uL (150-400); Red Blood Cell Count 4.16 X10^6/uL (4.0-5.2); Red Cell Distribution Width 13.5 % (11.6-14.8); White Blood Cell Count 4.9 X10^3/uL (4.5-11.0)
[2019-05-29 03:38] LABS: Blood Urea Nitrogen 16 mg/dL (7-17); Calcium 9.4 mg/dL (8.4-10.2); Carbon Dioxide 34 mmol/L (22-32); Chloride 96 mmol/L (98-107); Estimated Glomerular Filt Rate > 60.0 mL/min (>60); Glucose 212 mg/dL (80-110); HEMOLYSIS < 15 (0-50); Potassium 3.8 mmol/L (3.4-5.1); Sodium 137 mmol/L (137-145)
[2019-05-29 03:55] LABS: Procalcitonin < 0.05 ng/mL (<0.5)
[2019-05-29] MEDS: cephALEXin 250 MG PREPACK 1 BOTTLE MISC (03:59)
[2019-05-29 04:20] VITALS: BP 113/48; PULSE 81; RESP 16; TEMP 36.7; O2SAT 98
== END 2019-05-29 04:19 | disposition home or self-care (01) ==
PROVIDERS: Emergency Provider Emergency Medicine; PCP Internal Medicine
DX: L03.116 Cellulitis of left lower limb (principal); E10.8 Type 1 diabetes mellitus with unspecified complications
CPT/HCPCS: 36415; 80048; 84145; 85025; 99282; 99283

== ENCOUNTER 2019-06-04 08:23 | Emergency (ER) | payer OTHER, SELFPAY ==
[2019-03-22 19:09] VITALS: BMI 28.0
[2019-06-04 08:36] VITALS: BP 132/65; PULSE 83; RESP 13; TEMP 36.6; O2SAT 98
--- NOTE | 2019-06-04 08:51 | ED_ITS ---
HPI - Skin/Abscess/Foreign Bdy General Chief complaint: Skin/Abscess/Foreign Body Stated complaint: cellulitis on left leg Time Seen by Provider: 06/04/19 08:34 Source: patient Mode of arrival: Ambulatory Limitations: no limitations History of Present Illness HPI narrative: Patient is a 68-year-old female who presents with left leg cellulitis. I saw and evaluated her myself on 05/29/2019 at which time she was placed on Keflex. She says previously she was on doxycycline, not sure when that was. She says she was evaluated by her PCP this week who started her on an antifungal she is not sure what that is she says it has gotten worse. She has more blisters she denies any fevers numbness or tingling. MD complaint: rash Location: LLE Related Data Home Medications Medication Instructions Recorded Confirmed escitalopram oxalate [Lexapro] 40 mg PO DAILY #0 03/16/10 03/22/19 omeprazole 20 mg PO DAILY #0 03/16/10 03/22/19 Novolog Flexpen U-100 Insulin 4 - 6 unit SUBCUT AC 06/24/18 03/23/19 cevimeline 30 mg PO TID 06/24/18 03/22/19 lisinopril 2.5 mg PO DAILY 06/24/18 03/22/19 Lantus Solostar U-100 Insulin 30 unit SUBCUT BEDTIME 01/03/19 03/23/19 atorvastatin 20 mg PO DAILY 01/03/19 03/22/19 bupropion HCl 150 mg PO QAM 03/22/19 03/22/19 furosemide 40 mg PO DAILY 03/22/19 03/22/19 potassium chloride 10 meq PO DAILY 03/22/19 03/22/19 Previous Rx's Medication Instructions Recorded hydrocodone-acetaminophen 1 tab PO TID #0 tab 06/27/18 morphine [MS Contin] 15 mg PO Q8H #30 tab 01/09/19 alprazolam 0.5 mg PO BEDTIME #0 tab 03/26/19 amoxicillin-pot clavulanate 1 tab PO BID #12 tab 03/26/19 [Augmentin] levothyroxine 125 mcg PO DAILY #30 cap 03/26/19 cyclobenzaprine 10 mg PO TID PRN #10 tab 04/25/19 doxycycline hyclate 100 mg PO BID #20 tab 04/25/19 nystatin 1 applictn TOP TID #30 gram 04/28/19 ondansetron 4 mg PO Q6H PRN #20 tab 04/28/19 cephalexin [Keflex] 500 mg PO TID #21 cap 05/29/19 clindamycin HCl 300 mg PO QID #30 cap 06/04/19 Allergies Allergy/AdvReac Type Severity Reaction Status Date / Time sulfamethoxazole Allergy Verified 04/28/19 13:58 [From Bactrim] trimethoprim [From Bactrim] Allergy Verified 04/28/19 13:58 Review of Systems Review of Systems Narrative: GENERAL: Denies chills, fatigue, malaise, fever, sweats, travel HEENT: Denies sinus pain, ear pain, sore throat, difficulty swallowing, neck pain RESPIRATORY: Denies dyspnea, cough, wheezing, hemoptysis, sputum. CARDIOVASCULAR: Denies chest pain, palpitations, orthopnea, edema GASTROINTESTINAL: Denies nausea, vomiting, abdominal pain, diarrhea, constipation, melena. : Denies dysuria, frequency, incontinence, hematuria, urinary retention, flank pain. MUSCULOSKELETAL: Denies weakness, joint pain, or bony pain SKIN: See HPI NEUROLOGIC: Denies weakness, dizziness, headache, numbness, change in speech, confusion PSYCHIATRIC: No concerning psychosocial issues. 12 point review of systems is negative except for those stated above and HPI Patient History Medical History Depression (Chronic) Diabetes (Chronic) Fibromyalgia (Acute) Fibromyalgia (Chronic) GERD (gastroesophageal reflux disease) (Chronic) Hyperlipidemia (Chronic) Hypothyroidism (Chronic) Meningioma (Chronic) Restless leg syndrome (Chronic) Sjogren's disease (Chronic) Sleep apnea (Chronic) Spinal stenosis, lumbar (Chronic) Venous stasis dermatitis of both lower extremities (Chronic) Surgical History H/O total hysterectomy (Resolved) History of cholecystectomy (Resolved) History of lymph node biopsy (Acute) Social History household members: spouse and family Smoking Status: Current every day smoker alcohol intake: current Social History household members: spouse and family Smoking Status: Current every day smoker alcohol intake: current alcohol intake frequency: 0-2 drinks per day Substance Use Type: does not use Exam Initial Vital Signs Initial Vital Signs: Vital Signs Temperature 98 F 06/04/19 08:36 Pulse Rate 83 06/04/19 08:36 Respiratory Rate 13 06/04/19 08:36 Blood Pressure 132/65 06/04/19 08:36 Pulse Oximetry 98 06/04/19 08:36 GENERAL: Well-appearing, well-nourished and in no acute distress. HEENT: Head atraumatic,EOMI, pupils reactive, face symmetric CARDIOVASCULAR: Regular rate and rhythm without murmurs, rubs or gallops. RESPIRATORY: Breath sounds equal bilaterally, no wheezes rales or rhonchi. ABDOMEN: Soft, nontender. Normoactive bowel sounds all 4 quadrants. No guarding or rebound. EXTREMITIES: Normal range of motion, no clubbing or edema. Neurovascularly intact NEUROLOGICAL: Alert and oriented x4.Normal gait and speech. Cranial nerves II through XII grossly intact. SKIN: Left leg chronic dark wound noted surrounding blanching with erythroderma she is noted to have blisters which were not there previously. Overall no significant draining blanchable looks very similar to when I saw I previously erythema does not go beyond the knee Course Orders Ordered: ED Orders 06/04/19 08:55 Blood Culture Stat 06/04/19 09:02 Basic Metabolic Panel Stat Complete Blood Count AUTO DIFF Stat Lactate (Lactic Acid) Stat Procalcitonin Stat Vital Signs Vital signs: Vital Signs - 8 hr 06/04/19 08:36 06/04/19 11:23 Temperature 98 F Pulse Rate 83 74 Respiratory Rate 13 12 Blood Pressure 132/65 Blood Pressure [Right Arm] 102/53 L Pulse Oximetry 98 96 MDM - Skin/Abscess/Foreign Bdy Lab Data Attestation: I reviewed the patient's lab results. Result diagrams: 06/04/19 09:02 06/04/19 09:02 Labs: Lab Results 06/04/19 06/04/19 06/04/19 Range/Units 09:02 09:02 09:02 WBC 4.6 (4.5-11.0) X10^3/uL RBC 4.09 (4.0-5.2) X10^6/uL Hgb 12.0 (12.0-16.0) g/dL Hct 34.9 L (36-46) % MCV 85.3 (80-100) fL MCH 29.3 (26-34) PG MCHC 34.3 (30-36) % RDW 13.5 (11.6-14.8) % Plt Count 175 (150-400) X10^3/uL Neut % (Auto) 32.7 L (50-75) % Lymph % (Auto) 50.1 H (25-40) % [place] % (Auto) 8.5 (3-14) % Eos % (Auto) 8.6 H (2-4) % Baso % (Auto) 0.1 (0-2) % Neut # (Auto) 1500 (1351-8376) /uL Lymph # (Auto) 2300 (4743-3228) /uL [place] # (Auto) 400 (0-900) /uL Eos # (Auto) 400 (0-450) /uL Baso # (Auto) 0 (0-100) /uL Sodium 134 L (137-145) mmol/L Potassium 3.9 (3.4-5.1) mmol/L Chloride 93 L (98-107) mmol/L Carbon Dioxide 33 H (22-32) mmol/L BUN 18 H (7-17) mg/dL Creatinine 0.50 L (0.52-1.04) mg/dL Estimated GFR > 60.0 (>60) mL/min BUN/Creatinine Ratio 36.0 H (6-22) Glucose 324 H D (80-110) mg/dL Lactate (0.7-2.1) mmol/L Calcium 9.1 (8.4-10.2) mg/dL Procalcitonin < 0.05 (<0.5) ng/mL 06/04/19 Range/Units 09:02 WBC (4.5-11.0) X10^3/uL RBC (4.0-5.2) X10^6/uL Hgb (12.0-16.0) g/dL Hct (36-46) % MCV (80-100) fL MCH (26-34) PG MCHC (30-36) % RDW (11.6-14.8) % Plt Count (150-400) X10^3/uL Neut % (Auto) (50-75) % Lymph % (Auto) (25-40) % [place] % (Auto) (3-14) % Eos % (Auto) (2-4) % Baso % (Auto) (0-2) % Neut # (Auto) (4115-6762) /uL Lymph # (Auto) (2053-3365) /uL [place] # (Auto) (0-900) /uL Eos # (Auto) (0-450) /uL Baso # (Auto) (0-100) /uL Sodium (137-145) mmol/L Potassium (3.4-5.1) mmol/L Chloride (98-107) mmol/L Carbon Dioxide (22-32) mmol/L BUN (7-17) mg/dL Creatinine (0.52-1.04) mg/dL Estimated GFR (>60) mL/min BUN/Creatinine Ratio (6-22) Glucose (80-110) mg/dL Lactate 0.9 (0.7-2.1) mmol/L Calcium (8.4-10.2) mg/dL Procalcitonin (<0.5) ng/mL MDM Narrative Medical decision making narrative: Blood work is overall similar and reassuring. No leukocytosis negative procalcitonin. Not convinced it is bacterial. Patient is states that she was previously on doxycycline and now Keflex she overall appears well. I talked with her and her about admission versus going home. At this time patient does not want to stay in the hospital. We will try some clindamycin to see if that helps however recommend outpatient follow-up Discharge Plan Departure Patient Disposition: Home Clinical Impression: Cellulitis of leg Qualifiers: Laterality: left Qualified Code(s): L03.116 - Cellulitis of left lower limb Discharge Date/Time: 06/04/19 11:31 Instructions: DI for Cellulitis -- Adult Activity Restrictions/Additional Instructions: *You have been diagnosed with left leg cellulitis *What to do: Blood work overall looks okay. Antibiotics may not help this infection. *Continue to take medications as directed Stop taking Keflex Start taking clindamycin 300 mg 4 times a day for 7 days-->SENT TO [facility] IN [place] *Follow up with your primary care provider in 2-3 days *Return to ER if you should have increasing redness, increasing drainage, increasing blister, fever, weakness, confusion or any new, worsening or concerning symptoms Prescriptions: New clindamycin HCl 300 mg capsule 300 mg PO QID Qty: 30 RF: 0 No Action omeprazole 20 mg Capsule,Delayed Release(Dr/Ec) 20 mg PO DAILY Qty: 0 RF: 0 escitalopram oxalate [Lexapro] 20 mg Tablet 40 mg PO DAILY Qty: 0 RF: 0 cevimeline 30 mg Capsule 30 mg PO TID RF: 0 lisinopril 2.5 mg Tablet 2.5 mg PO DAILY RF: 0 Novolog Flexpen U-100 Insulin 100 unit/mL Insulin Pen 4 - 6 unit SUBCUT AC RF: 0 hydrocodone-acetaminophen 5-325 mg Tablet 1 tab PO TID Qty: 0 RF: 0 Lantus Solostar U-100 Insulin 100 unit/mL (3 mL) insulin pen 30 unit SUBCUT BEDTIME RF: 0 atorvastatin 20 mg Tablet 20 mg PO DAILY RF: 0 morphine [MS Contin] 15 mg tablet extended release 15 mg PO Q8H Qty: 30 RF: 0 cyclobenzaprine 10 mg tablet 10 mg PO TID PRN (Reason: muscle spasm) Qty: 10 RF: 0 doxycycline hyclate 100 mg tablet 100 mg PO BID Qty: 20 RF: 0 ondansetron 4 mg tablet,disintegrating 4 mg PO Q6H PRN (Reason: nausea and vomiting) Qty: 20 RF: 0 nystatin 100,000 unit/gram powder 1 applictn TOP TID Qty: 30 RF: 0 cephalexin [Keflex] 500 mg capsule 500 mg PO TID Qty: 21 RF: 0 furosemide 40 mg Tablet 40 mg PO DAILY RF: 0 potassium chloride 10 mEq Capsule, Extended Release 10 meq PO DAILY RF: 0 bupropion HCl 150 mg Tablet Extended Release 24 Hr 150 mg PO QAM RF: 0 alprazolam 0.5 mg tablet 0.5 mg PO BEDTIME Qty: 0 RF: 0 amoxicillin-pot clavulanate [Augmentin] 875-125 mg tablet 1 tab PO BID Qty: 12 RF: 0 levothyroxine 125 mcg capsule 125 mcg PO DAILY Qty: 30 RF: 0 Referrals: Brittany Warner MD [Primary Care Provider] -
[2019-06-04 09:31] LABS: Add Manual Diff / Slide Review NO; Basophils Absolute Auto 0 /uL (0-100); Basophils Percent Auto 0.1 % (0-2); Eosinophils Absolute Auto 400 /uL (0-450); Eosinophils Percent Auto 8.6 % (2-4); Hematocrit 34.9 % (36-46); Lymphocytes Absolute Auto 2300 /uL (1100-4500); Lymphocytes Percent Auto 50.1 % (25-40); Mean Corpuscular HGB Conc 34.3 % (30-36); Mean Corpuscular Hemoglobin 29.3 PG (26-34); Mean Corpuscular Volume 85.3 fL (80-100); Monocytes Absolute Auto 400 /uL (0-900); Monocytes Percent Auto 8.5 % (3-14); Neutrophils Absolute Auto 1500 /uL (1500-7000); Neutrophils Percent Auto 32.7 % (50-75); Platelet Count 175 X10^3/uL (150-400); Red Blood Cell Count 4.09 X10^6/uL (4.0-5.2); Red Cell Distribution Width 13.5 % (11.6-14.8); White Blood Cell Count 4.6 X10^3/uL (4.5-11.0)
[2019-06-04 09:35] LABS: Blood Urea Nitrogen 18 mg/dL (7-17); Calcium 9.1 mg/dL (8.4-10.2); Carbon Dioxide 33 mmol/L (22-32); Chloride 93 mmol/L (98-107); Estimated Glomerular Filt Rate > 60.0 mL/min (>60); Glucose 324 mg/dL (80-110); HEMOLYSIS < 15 (0-50); Potassium 3.9 mmol/L (3.4-5.1); Sodium 134 mmol/L (137-145)
[2019-06-04 09:36] LABS: Lactate (Lactic Acid) 0.9 mmol/L (0.7-2.1)
[2019-06-04 10:05] LABS: Procalcitonin < 0.05 ng/mL (<0.5)
[2019-06-04 11:23] VITALS: BP 102/53; PULSE 74; RESP 12; O2SAT 96
== END 2019-06-04 11:31 | disposition home or self-care (01) ==
PROVIDERS: Emergency Provider Emergency Medicine; PCP Internal Medicine
DX: L03.116 Cellulitis of left lower limb (principal)
CPT/HCPCS: 36415; 80048; 83605; 84145; 85025; 87040; 99282; 99283

== ENCOUNTER → 2019-07-01 14:03 | Outpatient (CLI) | payer OTHER, SELFPAY ==
[2019-03-22 19:09] VITALS: BMI 28.0
--- NOTE | 2019-07-01 | DI.CT.S_ITS ---
PROCEDURE: CT CHEST W CON INDICATIONS: Localized enlarged lymph nodes TECHNIQUE: After the administration of intravenous contrast, 5 mm thick sections acquired from the pulmonary apices to the posterior costophrenic angles. 1 mm axial lung, 5 mm thick coronal and sagittal reformats and 7 mm axial MIP were acquired. For radiation dose reduction, the following was used: automated exposure control, adjustment of mA and/or kV according to patient size. COMPARISON: [facility], CT, CT CHEST W CON, 09/23/2018, 7:56. FINDINGS: Image quality: Excellent. Lungs and pleura: No acute air space opacities. Mild biapical scarring is present. No pleural effusions or pneumothorax. Central and peripheral airways are patent and normal in caliber. Mediastinum: Heart size is normal. No pericardial effusion. Subcarinal adenopathy has increased, currently measuring 15 mm short axis of the Prevacid previously measuring 10 mm short axis. Pretracheal adenopathy has increased, previously measuring 8 mm short axis, currently measuring 12 mm short axis. Mildly prominent bilateral hilar lymph nodes are present, measuring less than 10 mm short axis, as before. Thoracic aorta and central pulmonary arteries are normal in size. Esophagus is normal in caliber. No hiatal hernia. Bones and chest wall: No suspicious bony lesions. No vertebral body compression fractures. No axillary or supraclavicular adenopathy by size criteria. Thyroid gland is within normal limits. Abdomen: Visualized upper abdominal solid organs appear normal. Upper abdominal bowel loops are normal in caliber. IMPRESSION: 1. Increased mediastinal adenopathy. Differential considerations include reactive adenopathy versus metastatic disease versus lymphoma. PET/CT examination may be helpful for further assessment. Dictated by: Joss Mcdowell M.D. on 07/01/2019 at 16:08 Approved by: Joss Mcdowell M.D. on 07/01/2019 at 16:12
[2019-07-01 14:45] LABS: Hemoglobin 12.6 g/dL (12.0-16.0); Mean Corpuscular Hemoglobin 29.1 PG (26-34); Mean Corpuscular Volume 85.7 fL (80-100); Platelet Count 180 X10^3/uL (150-400); Red Blood Cell Count 4.32 X10^6/uL (4.0-5.2); Red Cell Distribution Width 13.6 % (11.6-14.8); White Blood Cell Count 4.8 X10^3/uL (4.5-11.0)
[2019-07-01 14:57] LABS: Alanine Aminotransferase 22 IU/L (<35); Albumin 4.1 g/dL (3.5-5.0); Albumin Globulin Ratio 1.1 (1.0-2.8); Alkaline Phosphatase 58 U/L (38-126); Aspartate Aminotransferase 28 IU/L (14-36); BUN Creatinine Ratio 26.7 (6-22); Bilirubin Total 0.3 mg/dL (0.2-1.3); Blood Urea Nitrogen 16 mg/dL (7-17); Calcium 9.6 mg/dL (8.4-10.2); Carbon Dioxide 36 mmol/L (22-32); Chloride 97 mmol/L (98-107); Estimated Glomerular Filt Rate > 60.0 mL/min (>60); Globulin 3.6 g/dL (1.7-4.1); Glucose 259 mg/dL (80-110); HEMOLYSIS 15 (0-50); Sodium 139 mmol/L (137-145); Total Protein 7.7 g/dL (6.3-8.2)
[2019-07-01 15:01] LABS: Rheumatoid Factor < 8.6 IU/mL (<12.0)
[2019-07-01 15:12] LABS: Neutrophils Absolute Manual 2640 /uL (3000-5900); RBC Morphology Normal Morphology; Total Cells Counted 100
[2019-07-05 13:11] LABS: Serotype 3 <0.3; Serotype 4 <0.3; Serotype 8 <0.3
[2019-07-05 14:58] LABS: Complement C3 144 mg/dL (83-193)
[2019-07-05 15:04] LABS: Immunoglobulin A 138 mg/dL (20-320); Immunoglobulin G, Quantitative 1781 mg/dL (600-1540); Immunoglobulin M, Quantitative 157 mg/dL (50-300)
[2019-07-06 01:01] LABS: DNA (DS) Antibody <1 IU/mL
[2019-07-06 08:46] LABS: IgG Subclass 1 853 mg/dL (382-929); IgG Subclass 2 212 mg/dL (241-700); IgG Subclass 3 45 mg/dL (22-178); IgG Subclass 4 465.7 mg/dL (4.0-86.0); IgG Total 1596 mg/dL (600-1540)
== END ==
PROVIDERS: Family Provider Internal Medicine; PCP Internal Medicine; Visit Provider Internal Medicine
DX: R59.0 Localized enlarged lymph nodes (principal); D84.9 Immunodeficiency, unspecified
CPT/HCPCS: 36415; 71260; 80053; 82784; 82787; 83516; 85025; 86160; 86225; 86235; 86317; 86360; 86430; Q9967

== ENCOUNTER → 2019-09-09 12:45 | Outpatient (CLI) | payer OTHER, SELFPAY ==
[2019-03-22 19:09] VITALS: BMI 28.0
--- NOTE | 2019-09-09 | DI.MRI.S_ITS ---
PROCEDURE: MR HEAD/BRAIN WO/W CON INDICATIONS: Dizziness and giddiness TECHNIQUE: Noncontrast axial T1 spin echo, axial T2 fast spin echo, sagittal and axial FLAIR, coronal T2 fast spin echo, axial gradient echo, axial diffusion and ADC through the brain. After the administration of contrast, axial and coronal T1 spin echo with fat saturation through the brain. COMPARISON: [facility], MR, BRAIN W&W/O CONTRAST, 11/20/2005, 13:48. [facility] , MR, BRAIN W&W/O CONTRAST, 11/28/2006, 13:07. [facility], MR, BRAIN W&WO CONTRAST, 11/27/2015, 15:19. [facility], MR, BRAIN W&W/O CONTRAST, 12/03/2007, 13:06. FINDINGS: Image quality: Diagnostic CSF spaces: Basal cisterns are patent. No extra-axial fluid collections. Ventricles are normal in size and shape. Brain: There is again seen an enhancing extra-axial mass along the anterior aspect of right frontal lobe medially, with a broad attachment to dura. This lesion demonstrates susceptibility artifact, which is consistent with calcification. There is mild to moderate heterogeneous enhancement seen. This lesion measures 10 x 8 mm in greatest axial dimension, with a craniocaudal extent of 9 mm. No midline shift. There is cerebral volume loss for age. There is periventricular white matter chronic small vessel ischemic change. The brainstem appears normal. Diffusion-weighted images demonstrate no acute ischemic insults. No chronic ischemic insults. Normal intravascular flow voids are present. Skull and face: Calvarial marrow is normal in signal. Orbits appear normal. Note is made of bilateral lens replacements. Sinuses: Mild mucosal thickening is seen within the maxillary sinuses, with mild to moderate mucosal thickening seen elsewhere. The left maxillary sinus is small in size and which is best demonstrated on coronal images, as on series 9 image 5. The frontal sinuses are poorly developed. There is mild right-sided and mild to moderate left-sided mass air cell fluid seen. IMPRESSION: No significant change since 2005 of the enhancing extra-axial mass along the medial aspect of the right frontal lobe, which is attributed to a meningioma. No additional masses or areas of abnormal enhancement can be seen. Abnormally small left maxillary sinus. Please correlate with prior injury versus chronic sinusitis at this site. Dictated by: Matt Richardson M.D. on 09/09/2019 at 12:50 Approved by: Matt Richardson M.D. on 09/09/2019 at 12:57
--- NOTE | 2019-09-09 | DI.US.S_ITS ---
PROCEDURE: US PERIPH VENOUS LOW EXTREM LT INDICATIONS: CELLULITIS TECHNIQUE: Real-time imaging, as well as color and pulse Doppler interrogation, were performed of the lower extremity deep veins from the inguinal ligament to the popliteal fossa. COMPARISON: None. FINDINGS: The common femoral, femoral and popliteal veins are normally compressible, and free of intraluminal thrombus. Color and pulse Doppler demonstrate normal phasic intraluminal flow. There is normal augmentation response to distal compression maneuver. IMPRESSION: No evidence of deep venous thrombosis. Dictated by: Matteo Anders M.D. on 09/09/2019 at 15:30 Approved by: Matteo Anders M.D. on 09/09/2019 at 15:31
== END ==
PROVIDERS: Family Provider Internal Medicine; PCP Internal Medicine; Visit Provider Internal Medicine
DX: R42 Dizziness and giddiness (principal); D32.0 Benign neoplasm of cerebral meninges; L03.116 Cellulitis of left lower limb
CPT/HCPCS: 70553; 93971

== ENCOUNTER → 2019-09-21 18:39 | Outpatient (ROUT) | payer OTHER, SELFPAY ==
[2019-03-22 19:09] VITALS: BMI 28.0
[2019-09-21 18:55] LABS: UR Morphine/Opiate cutoff 300 Positive (Negative); Ur Creatinine Normal (Normal); Ur Specific Gravity Normal (Normal); Urine Amphetamines Positive (Negative); Urine Cocaine Negative (Negative); Urine Methamphetamines Negative (Negative); Urine Phencyclidine Negative (Negative); Urine Tetrahydrocannabinol Negative (Negative); Urine pH Normal (Normal)
[2019-09-21 18:56] LABS: Urine Barbiturates Negative (Negative); Urine Benzodiazepines Negative (Negative); Urine MDMA Negative (Negative); Urine Methadone Negative (Negative); Urine Oxycodone Negative (Negative); Urine Tricyclic Antidepressant Positive (Negative)
== END ==
PROVIDERS: Family Provider Internal Medicine; PCP Internal Medicine; Visit Provider Internal Medicine
DX: G89.4 Chronic pain syndrome (principal)
CPT/HCPCS: 80305

== ENCOUNTER → 2019-10-14 15:41 | Outpatient (CLI) | payer OTHER, SELFPAY ==
[2019-03-22 19:09] VITALS: BMI 28.0
--- NOTE | 2019-10-14 | DI.CT.S_ITS ---
PROCEDURE: CT SINUS SCREEN WO CON INDICATIONS: WHIPLASH INJURY TO NECK TECHNIQUE: Noncontrast 3.0 mm axial images acquired from the frontal sinuses to the mid-sella, with coronal and sagittal reformats. For radiation dose reduction, the following was used: automated exposure control, adjustment of mA and/or kV according to patient size. COMPARISON: [facility], MR, MR CERVICAL SPINE WO CON, 10/14/2019, 16:37. FINDINGS: Image quality: Excellent. Maxillary Sinuses: The left maxillary sinus is small in size, with thickened dong laterally and posteriorly. Mild to moderate mucosal thickening is seen within the left maxillary sinus. Mild mucosal thickening is seen within the right maxillary sinus. Portions of the medial dong of the maxillary sinuses are demineralized. Ethmoid Air Cells: No bony remodeling or destruction. At least moderate mucosal thickening is seen within the ethmoid air cells. Sphenoid Sinuses: No bony remodeling or destruction. There is mild mucosal thickening within the sphenoid sinuses. Frontal Sinuses: The frontal sinuses are poorly developed. Mild mucosal thickening is seen inferiorly and medially. Ostiomeatal Complexes: The ostiomeatal complexes are constitutionally narrowed and are further narrowed by soft tissue thickening. The uncinate processes are demineralized. Miscellaneous: Visualized intra-orbital contents are normal. 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 Mild to moderate leftward nasal septal deviation is seen. IMPRESSION: Chronic left maxillary sinus disease, with remodeling change and decreased size of the left maxillary sinus. The ostiomeatal complexes are highly narrowed by soft tissue thickening, with demineralization of the uncinate processes. Milder sinus disease is seen elsewhere. Dictated by: Matt Richardson M.D. on 10/14/2019 at 16:23 Approved by: Matt Richardson M.D. on 10/14/2019 at 16:27
--- NOTE | 2019-10-14 | DI.MRI.S_ITS ---
PROCEDURE: MR CERVICAL SPINE WO CON INDICATIONS: WHIPLASH INJURY TO NECK. Neck pain TECHNIQUE: Noncontrast sagittal T1 spin echo and T2 fast spin echo, sagittal STIR, foraminal oblique sagittal T2 fast spin echo, and axial gradient echo or T2 fast spin echo through the cervical spine. COMPARISON: None. FINDINGS: Image quality: Excellent. Alignment and Curvature: There is normal bony alignment. Bone Marrow: Marrow demonstrates normal overall signal. Spinal Cord: Visualized spinal cord has normal size and signal. No cerebellar tonsillar herniation. Paraspinous Soft Tissues: No paravertebral masses. Prevertebral soft tissues are normal in thickness. C2-C3: No canal stenosis or foraminal stenosis. C3-C4: Mild disc bulge. No canal stenosis. Bilateral facet hypertrophy. Mild bilateral foraminal stenosis. C4-C5: Mild disc bulge. Facet and ligament hypertrophy. Moderate canal stenosis. Moderate bilateral foraminal stenosis with mild flattening deformity on the exiting bilateral C5 nerve roots. C5-C6: Moderate chronic disc height loss. Diffuse disc bulge, eccentric to the left, with flattening on the left ventral cord and moderate canal stenosis. Bilateral uncovertebral joint hypertrophy. Mild right foraminal narrowing. A small left foraminal disc protrusion contributes to severe left foraminal narrowing and impingement on the left C6 nerve. C6-C7: Mild disc bulge. No canal stenosis or significant foraminal stenosis. C7-T1: No canal stenosis or foraminal stenosis. IMPRESSION: 1. Moderate canal stenosis at C4-C5 and C5-C6. 2. A small left foraminal disc protrusion at C5-C6 contributes to severe left foraminal narrowing. Question: Does this patient have a left C6 radiculopathy? 3. Moderate bilateral foraminal stenosis at C4-C5. Dictated by: Shawn Rowe M.D. on 10/14/2019 at 17:05 Approved by: Shawn Rowe M.D. on 10/14/2019 at 17:13
--- NOTE | 2019-10-14 | DI.RAD.S_ITS ---
PROCEDURE: XR HIP W PEL IF DONE LT 2V INDICATIONS: LEFT GROIN PAIN TECHNIQUE: AP pelvis with lateral view(s) of the left hip(s). COMPARISON: None. FINDINGS: Bones: No fractures or dislocations. Pelvic ring appears intact. No suspicious bony lesions. Mild arthritic changes each hip, symmetric. Soft tissues: The visualized bowel gas pattern is normal. No suspicious soft tissue calcifications. IMPRESSION: Mild symmetric hip joint osteoarthritis, no trauma. Source of asymmetric left-sided predominant pain is not found. Dictated by: Weston Paulson M.D. on 10/14/2019 at 16:36 Approved by: Weston Paulson M.D. on 10/14/2019 at 16:50
== END ==
PROVIDERS: Family Provider Internal Medicine; PCP Internal Medicine; Referring Provider Internal Medicine; Visit Provider Internal Medicine
DX: J32.8 Other chronic sinusitis (principal); S13.4XXA Sprain of ligaments of cervical spine, initial encounter; M48.02 Spinal stenosis, cervical region; M50.222 Other cervical disc displacement at C5-C6 level; M16.0 Bilateral primary osteoarthritis of hip; L30.9 Dermatitis, unspecified; R10.32 Left lower quadrant pain
CPT/HCPCS: 70486; 72141; 73502

== ENCOUNTER 2019-12-25 18:36 | Emergency (ER) | payer OTHER, SELFPAY ==
[2019-03-22 19:09] VITALS: BMI 28.0
[2019-12-25 18:51] VITALS: BP 102/52; PULSE 76; RESP 16; TEMP 36.7; BMI 28.8
[2019-12-25 20:06] VITALS: BP 127/60; PULSE 69; RESP 18; TEMP 36.7; O2SAT 94
--- NOTE | 2019-12-25 20:09 | PC.NURSE ---
Pt reports chronic LLE cellulitis. Extremity is read, scaly, dried yellow exudate. Pt reports open wounds to posterior side of leg that she noticed this morning, I think I scratched myself in my sleep. Pt is well-appearing.
--- NOTE | 2019-12-25 20:27 | ED.SKABFB ---
HPI - Skin/Abscess/Foreign Bdy General Chief complaint: Skin/Abscess/Foreign Body Stated complaint: Cellulitis In Lower Left Leg Time Seen by Provider: 12/25/19 20:13 Source: patient Mode of arrival: Ambulatory Limitations: no limitations History of Present Illness HPI narrative: Patient is a 69-year-old female here for evaluation which she thinks is cellulitis in her left lower extremity. Patient states that she has had this for an extended period of time. She has seen her primary doctor. Has seen vascular surgery 1 time which she states she has had ultrasounds of her lower extremities and was told that everything was ?normal? she states that several weeks/months ago she was seen by her primary doctor. Was given a prescription for Keflex. She states shortly afterwards she was switched to ?penicillin ?she states that she was on this ?penicillin ?for approximately 1 month. She finished the course of that approximately 2 weeks ago. She states she did not feel like her lower extremity was getting better so she started the Keflex that she had been given a prescription for several weeks ago. She states she has completed the course of that. She denies any fevers. She does state that her left lower extremities oozing. She does have swelling in her lower extremities with this is not new. Has not seen Dermatology. Has not followed up with her primary doctor since she completed the course of the ?penicillin ?. Related Data Home Medications Medication Instructions Recorded Confirmed escitalopram oxalate [Lexapro] 40 mg PO DAILY #0 03/16/10 03/22/19 omeprazole 20 mg PO DAILY #0 03/16/10 03/22/19 Novolog Flexpen U-100 Insulin 4 - 6 unit SUBCUT AC 06/24/18 03/23/19 cevimeline 30 mg PO TID 06/24/18 03/22/19 lisinopril 2.5 mg PO DAILY 06/24/18 03/22/19 Lantus Solostar U-100 Insulin 30 unit SUBCUT BEDTIME 01/03/19 03/23/19 atorvastatin 20 mg PO DAILY 01/03/19 03/22/19 bupropion HCl 150 mg PO QAM 03/22/19 03/22/19 furosemide 40 mg PO DAILY 03/22/19 03/22/19 potassium chloride 10 meq PO DAILY 03/22/19 03/22/19 Previous Rx's Medication Instructions Recorded hydrocodone-acetaminophen 1 tab PO TID #0 tab 06/27/18 morphine [MS Contin] 15 mg PO Q8H #30 tab 01/09/19 alprazolam 0.5 mg PO BEDTIME #0 tab 03/26/19 amoxicillin-pot clavulanate 1 tab PO BID #12 tab 03/26/19 [Augmentin] levothyroxine 125 mcg PO DAILY #30 cap 03/26/19 cyclobenzaprine 10 mg PO TID PRN #10 tab 04/25/19 doxycycline hyclate 100 mg PO BID #20 tab 04/25/19 nystatin 1 applictn TOP TID #30 gram 04/28/19 ondansetron 4 mg PO Q6H PRN #20 tab 04/28/19 cephalexin [Keflex] 500 mg PO TID #21 cap 05/29/19 clindamycin HCl 300 mg PO QID #30 cap 06/04/19 doxycycline hyclate 100 mg PO BID 7 Days #14 tab 12/25/19 Allergies Allergy/AdvReac Type Severity Reaction Status Date / Time sulfamethoxazole Allergy Verified 04/28/19 13:58 [From Bactrim] trimethoprim [From Bactrim] Allergy Verified 04/28/19 13:58 Review of Systems Constitutional Constitutional: Denies fever(s) and Denies headache(s) ENT Ears, Nose, Mouth, and Throat: Denies headache(s) Cardiovascular Cardiovascular: Denies chest pain and Denies dyspnea Respiratory Respiratory: Denies dyspnea Gastrointestinal Gastrointestinal: Denies abdominal pain and Denies change in stool character Musculoskeletal Musculoskeletal: Denies back pain, Denies myalgias and Denies arthralgias Integumentary/Breasts Skin/Breast: Reports dry skin, Reports pruritus, Reports lesions, Reports new lesions, Reports rash, Reports skin swelling and Denies skin ulcer Neurologic Neurologic: Denies behavioral changes and Denies headache(s) Psychiatric Psychiatric: Denies behavioral changes Hematologic/Lymphatic Hematologic/Lymphatic: Denies easy bleeding and Denies easy bruising Patient History Medical History Depression (Chronic) Diabetes (Chronic) Fibromyalgia (Acute) Fibromyalgia (Chronic) GERD (gastroesophageal reflux disease) (Chronic) Hyperlipidemia (Chronic) Hypothyroidism (Chronic) Meningioma (Chronic) Restless leg syndrome (Chronic) Sjogren's disease (Chronic) Sleep apnea (Chronic) Spinal stenosis, lumbar (Chronic) Venous stasis dermatitis of both lower extremities (Chronic) Social History household members: spouse and family Smoking Status: Current every day smoker alcohol intake: current Smoking Status: Current every day smoker alcohol intake frequency: 0-2 drinks per day Substance Use Type: does not use Exam Initial Vital Signs Initial Vital Signs: Vital Signs Temperature 98.0 F 12/25/19 18:51 Pulse Rate 76 12/25/19 18:51 Respiratory Rate 16 12/25/19 18:51 Blood Pressure 102/52 L 12/25/19 18:51 Const General: cooperative, comfortable and well developed Limitations: mental status not altered HENMT Head: normal to inspection and normocephalic Resp Effort & Inspection: normal respiratory effort Cardio Rate: regular rate Skin Other: Patient does have bilateral lower extremity swelling however her left lower extremity from just distal to her ankle up to just distal to her knee is red. Is circumferential. Does have yellow crusting. There is no ulcerations. No draining. Is slightly warm to the touch compared to the right. Patient reports only minimal tenderness to palpation in this area. Extrem General: capillary refill normal and edema Psych Appearance: grossly normal and well kempt Scores GCS Munir coma scale eye opening: Spontaneous Alderson coma scale verbal response: Orientated Alderson coma scale motor response: Obey commands Alderson coma scale total score: 15 Course Orders Ordered: Discontinued Medications Doxycycline Hyclate (Vibramycin) 100 mg PO NOW ONE Stop: 12/25/19 20:28 Last Admin: 12/25/19 20:39 Dose: 100 mg Documented by: TIANNA Vital Signs Vital signs: Vital Signs - 8 hr 12/25/19 18:51 12/25/19 20:06 Temperature 98.0 F 98.0 F Pulse Rate 76 69 Respiratory Rate 16 18 Blood Pressure 102/52 L Blood Pressure [Left Arm] 127/60 Pulse Oximetry 94 MDM - Skin/Abscess/Foreign Bdy MDM Narrative Medical decision making narrative: Had a long discussion with the patient regarding her symptoms. I did inform her that I do have some concern that potentially her lower extremity symptoms are venous stasis changes versus dermatitis and potentially less likely cellulitis. We also discussed the potentially she has peripheral vascular disease. Informed her that she should talk with her primary doctor about following up with vascular surgery and potentially even Dermatology. She does have crusting in the area and it is somewhat warm compared to the other side so I will attempt a course of doxycycline however I told the patient that after she has been through an extended course of which she describes as ?penicillin ?then also course of Keflex and if the doxycycline that were going to give her today does not improve her symptoms that this is most likely not a cellulitis in that she should follow-up with the specialist as described above. Patient expressed understanding and agreement. Discharge Plan Departure Patient Disposition: Home Clinical Impression: Cellulitis of leg Qualifiers: Laterality: left Qualified Code(s): L03.116 - Cellulitis of left lower limb Discharge Date/Time: 12/25/19 20:44 Instructions: DI for Cellulitis -- Adult Activity Restrictions/Additional Instructions: Recommend you take the antibiotics as directed. I do recommend you talk with your primary provider about a follow-up with Dermatology and also keeping your appointment with vascular surgery. Return to the emergency department for any new or worsening symptoms Prescriptions: New doxycycline hyclate 100 mg tablet 100 mg PO BID 7 Days Qty: 14 RF: 0 No Action omeprazole 20 mg Capsule,Delayed Release(Dr/Ec) 20 mg PO DAILY Qty: 0 RF: 0 escitalopram oxalate [Lexapro] 20 mg Tablet 40 mg PO DAILY Qty: 0 RF: 0 cevimeline 30 mg Capsule 30 mg PO TID RF: 0 lisinopril 2.5 mg Tablet 2.5 mg PO DAILY RF: 0 Novolog Flexpen U-100 Insulin 100 unit/mL Insulin Pen 4 - 6 unit SUBCUT AC RF: 0 hydrocodone-acetaminophen 5-325 mg Tablet 1 tab PO TID Qty: 0 RF: 0 Lantus Solostar U-100 Insulin 100 unit/mL (3 mL) insulin pen 30 unit SUBCUT BEDTIME RF: 0 atorvastatin 20 mg Tablet 20 mg PO DAILY RF: 0 morphine [MS Contin] 15 mg tablet extended release 15 mg PO Q8H Qty: 30 RF: 0 cyclobenzaprine 10 mg tablet 10 mg PO TID PRN (Reason: muscle spasm) Qty: 10 RF: 0 doxycycline hyclate 100 mg tablet 100 mg PO BID Qty: 20 RF: 0 ondansetron 4 mg tablet,disintegrating 4 mg PO Q6H PRN (Reason: nausea and vomiting) Qty: 20 RF: 0 nystatin 100,000 unit/gram powder 1 applictn TOP TID Qty: 30 RF: 0 cephalexin [Keflex] 500 mg capsule 500 mg PO TID Qty: 21 RF: 0 furosemide 40 mg Tablet 40 mg PO DAILY RF: 0 potassium chloride 10 mEq Capsule, Extended Release 10 meq PO DAILY RF: 0 bupropion HCl 150 mg Tablet Extended Release 24 Hr 150 mg PO QAM RF: 0 alprazolam 0.5 mg tablet 0.5 mg PO BEDTIME Qty: 0 RF: 0 amoxicillin-pot clavulanate [Augmentin] 875-125 mg tablet 1 tab PO BID Qty: 12 RF: 0 levothyroxine 125 mcg capsule 125 mcg PO DAILY Qty: 30 RF: 0 clindamycin HCl 300 mg capsule 300 mg PO QID Qty: 30 RF: 0 Referrals: Brittany Warner MD [Primary Care Provider] -
[2019-12-25] MEDS: DOXYCYCLINE HYCLATE 100 MG TABLET PO (20:39)
== END 2019-12-25 20:44 | disposition home or self-care (01) ==
PROVIDERS: Emergency Provider Emergency Medicine; Family Provider Internal Medicine; PCP Internal Medicine
DX: L03.116 Cellulitis of left lower limb (principal)
CPT/HCPCS: 99283

== ENCOUNTER → 2020-01-20 20:47 | Outpatient (ROUT) | payer OTHER, SELFPAY ==
[2019-03-22 19:09] VITALS: BMI 28.0
== END ==
PROVIDERS: Family Provider Internal Medicine; PCP Internal Medicine; Visit Provider Internal Medicine
DX: L03.116 Cellulitis of left lower limb (principal)
CPT/HCPCS: 87070; 87075; 87077; 87102; 87147; 87205

== ENCOUNTER 2020-02-08 20:40 | Inpatient (IN) | payer OTHER, SELFPAY ==
[2019-03-22 19:09] VITALS: BMI 28.0
[2020-02-08 20:51] VITALS: BP 160/67; PULSE 108; RESP 22; TEMP 39.6; O2SAT 96
[2020-02-08] MEDS: SODIUM CHLORIDE 0.9% 1,000 ML 1000 ML IV ×2 (20:55→22:10)
--- NOTE | 2020-02-08 20:56 | ED_ITS ---
HPI - General Adult General Chief complaint: Fever Stated complaint: Leg pain Time Seen by Provider: 02/08/20 20:45 Source: patient and EMS Mode of arrival: EMS Limitations: no limitations History of Present Illness HPI narrative: Patient is a 69-year-old female. I have evaluated her in the emergency department the past for similar issues for which she arrives for today. My last evaluation of her was for concern of potential lower extremity cellulitis. I did have some concern about cellulitis verses a venous stasis/for for artery disease changes. When I saw her last we did start her on a dose of doxycycline. She states she completed the course of this antibiotic and did report that her symptoms improved somewhat. Yesterday she followed up with her primary doctor because the left lower extremity was becoming more red and painful. Patient was started on Bactrim. Patient does have an allergy to Bact rim. She states that her allergies that her chest ?closes up ?when asked about why they started on Bactrim patient states they had a discussion of the risks and benefits incision was to start her on this medication. She took the 1st dose of this medication earlier today. This evening patient started to feel worse. Fevers. Worsening pain in her left lower extremity and also her right lower extremity. Related Data Home Medications Medication Instructions Recorded Confirmed escitalopram oxalate [Lexapro] 40 mg PO DAILY #0 03/16/10 02/09/20 omeprazole 20 mg PO DAILY #0 03/16/10 02/09/20 cevimeline 30 mg PO TID 06/24/18 03/22/19 insulin aspart U-100 [Novolog 4 - 6 unit SUBCUT AC 06/24/18 02/09/20 Flexpen U-100 Insulin] lisinopril 2.5 mg PO DAILY 06/24/18 02/09/20 Lantus Solostar U-100 Insulin 30 unit SUBCUT BEDTIME 01/03/19 02/09/20 atorvastatin 20 mg PO DAILY 01/03/19 02/09/20 bupropion HCl 150 mg PO QAM 03/22/19 02/09/20 furosemide 40 mg PO DAILY 03/22/19 02/09/20 potassium chloride 10 meq PO DAILY 03/22/19 02/09/20 Previous Rx's Medication Instructions Recorded hydrocodone-acetaminophen 1 tab PO TID #0 tab 06/27/18 morphine [MS Contin] 15 mg PO Q8H #30 tab 01/09/19 alprazolam 0.5 mg PO BEDTIME #0 tab 03/26/19 levothyroxine 125 mcg PO DAILY #30 cap 03/26/19 cyclobenzaprine 10 mg PO TID PRN #10 tab 04/25/19 ondansetron 4 mg PO Q6H PRN #20 tab 04/28/19 Allergies Allergy/AdvReac Type Severity Reaction Status Date / Time sulfamethoxazole Allergy Verified 04/28/19 13:58 [From Bactrim] trimethoprim [From Bactrim] Allergy Verified 04/28/19 13:58 Review of Systems Constitutional Constitutional: Reports chills, Reports fatigue and Reports fever(s) Cardiovascular Cardiovascular: Denies chest pain and Denies dyspnea Respiratory Respiratory: Denies dyspnea Gastrointestinal Gastrointestinal: Denies abdominal pain and Denies vomiting Genitourinary Genitourinary: Denies dysuria Genitourinary: Denies dysuria Musculoskeletal Comments: Left leg pain, right leg pain Integumentary/Breasts Skin/Breast: Reports lesions, Reports rash and Reports sores Neurologic Neurologic: Denies behavioral changes Psychiatric Psychiatric: Denies behavioral changes Endocrine Endocrine: Reports fatigue Hematologic/Lymphatic Hematologic/Lymphatic: Denies easy bleeding and Denies easy bruising Allergic/Immunologic Allergic/Immunologic: Denies urticaria Patient History Medical History Depression (Chronic) Diabetes (Chronic) Fibromyalgia (Acute) Fibromyalgia (Chronic) GERD (gastroesophageal reflux disease) (Chronic) Hyperlipidemia (Chronic) Hypothyroidism (Chronic) Meningioma (Chronic) Restless leg syndrome (Chronic) Sjogren's disease (Chronic) Sleep apnea (Chronic) Spinal stenosis, lumbar (Chronic) Venous stasis dermatitis of both lower extremities (Chronic) Surgical History H/O total hysterectomy (Resolved) History of cholecystectomy (Resolved) History of lymph node biopsy (Acute) Family History Mother Bowel obstruction Father Psychiatric disorder Brother Hypertension Sister Cancer Social History household members: spouse and family Smoking Status: Current some day smoker alcohol intake: never Smoking Status: Current every day smoker alcohol intake frequency: 0-2 drinks per day Substance Use Type: does not use Exam Initial Vital Signs Initial Vital Signs: Vital Signs Temperature 103.2 F H 02/08/20 20:51 Pulse Rate 108 H 02/08/20 20:51 Respiratory Rate 22 02/08/20 20:51 Blood Pressure 160/67 H 02/08/20 20:51 Pulse Oximetry 96 02/08/20 20:51 Const General: No comfortable (Comfortable) and well developed Limitations: mental status not altered HENAR Head: normal to inspection and normocephalic Resp Effort & Inspection: normal respiratory effort Auscultation: clear to auscultation bilaterally Cardio Rate: tachycardic Rhythm: regular rhythm GI Inspection: non-distended Palpation: soft Skin Other: Patient with red warm skin left lower extremity from her toes to just distal to the knee. There are small ulcerations on the anterior portion with crusting. Minimal redness right lower extremity. Neuro General: patient alert and patient awake Cognition: normal cognition Speech: speech normal Extrem General: normal to inspection and capillary refill normal Psych Appearance: grossly normal Scores GCS [place] coma scale eye opening: Spontaneous [place] coma scale verbal response: Orientated [place] coma scale motor response: Obey commands [place] coma scale total score: 15 Course Orders Ordered: ED Orders 02/08/20 20:45 C-Reactive Protein Quant Stat Complete Blood Count AUTO DIFF Stat Comprehensive Metabolic Panel Stat Erythrocyte Sedimentation Rate Stat Lactate (Lactic Acid) Stat Lipase Stat Magnesium Stat Phosphorous Stat Procalcitonin Stat Thyroid Stimulating Hormone Stat 02/08/20 20:50 Blood Culture Stat 02/08/20 20:58 EKG-12 Lead Stat 02/08/20 20:59 Urinalysis and Microscopic Stat Acetaminophen (Tylenol) 650 mg PO Q4HR PRN PRN Reason: Fever/Mild Pain (1-3) Atorvastatin Calcium (Lipitor) 20 mg PO BEDTIME FRANCISCO JAVIER Bisacodyl (Dulcolax) 10 mg GA DAILY PRN PRN Reason: Constipation Bupropion HCl (Wellbutrin Xl) 150 mg PO DAILY FRANCISCO JAVIER Dextrose (D50w) 25 gm IV PRN PRN; Protocol PRN Reason: Hypoglycemia Docusate Sodium (Colace) 100 mg PO BID PRN PRN Reason: Constipation Enoxaparin Sodium (Lovenox) 40 mg SUBCUT DAILY FRANCISCO JAVIER Escitalopram Oxalate (Lexapro) 40 mg PO DAILY [facility] Sodium Chloride (Normal Saline 0.9%) 1,000 mls @ 150 mls/hr IV CONT FRANCISCO JAVIER Last Admin: 02/09/20 01:14 Dose: 150 mls/hr Documented by: OBDULIA Ceftriaxone Sodium/Dextrose (Rocephin) 2 gm in 50 mls @ 100 mls/hr IV Q24H FRANCISCO JAVIER Vancomycin HCl 1,250 mg/ (Sodium Chloride) 250 mls @ 250 mls/hr IV Q8H FRANCISCO JAVIER Insulin Aspart (Novolog Flexpen) 0 unit SUBCUT ACHS FRANCISCO JAVIER; Protocol Insulin Glargine (Lantus Solostar (Pen)) 30 unit SUBCUT BEDTIME FRANCISCO JAVIER Levothyroxine Sodium (Synthroid) 125 mcg PO 0600 FRANCISCO JAVIER Naloxone HCl (Narcan) 0.2 mg IV Q2MIN PRN PRN Reason: Opiate Reversal Oxycodone HCl (Percolone) 5 mg PO Q6HR PRN PRN Reason: Pain, Moderate (4-6) Pantoprazole Sodium (Protonix) 20 mg PO 0600 [facility] Promethazine HCl (Phenadoz) 12.5 mg GA Q6HR PRN PRN Reason: Nausea And Vomiting Vancomycin HCl (Vancomycin Per Pharmacy) 1 request MISC NOW ONE Stop: 02/08/20 23:24 Vancomycin HCl (Vancomycin Trough) 1 request MISC NOW ONE Stop: 02/09/20 23:31 Discontinued Medications Acetaminophen (Tylenol) 650 mg PO NOW ONE Stop: 02/08/20 21:38 Last Admin: 02/08/20 21:43 Dose: 650 mg Documented by: SEBASTIÁN Sodium Chloride (Normal Saline 0.9%) 1,000 mls @ 1,000 mls/hr IV BOLUS ONE Stop: 02/08/20 21:56 Last Infusion: 02/08/20 22:17 Dose: 0 mls/hr Documented by: Admin: 02/08/20 20:55 Dose: 1,000 mls/hr Documented by: AMY Famotidine (Pepcid) 20 mg in 50 mls @ 200 mls/hr IV NOW ONE Stop: 02/08/20 21:33 Last Infusion: 02/08/20 22:00 Dose: 0 mls/hr Documented by: Admin: 02/08/20 21:27 Dose: 200 mls/hr Documented by: AMY Vancomycin HCl (Vancomycin) 1,000 mg in 200 mls @ 200 mls/hr IV NOW ONE Stop: 02/08/20 22:19 Last Admin: 02/08/20 23:06 Dose: 200 mls/hr Documented by: GINA Ceftriaxone Sodium/Dextrose (Rocephin) 1 gm in 50 mls @ 100 mls/hr IV NOW ONE Stop: 02/08/20 21:50 Last Infusion: 02/08/20 22:26 Dose: 0 mls/hr Documented by: Admin: 02/08/20 21:27 Dose: 100 mls/hr Documented by: AMY Sodium Chloride (Normal Saline 0.9%) 1,000 mls @ 1,000 mls/hr IV BOLUS ONE Stop: 02/08/20 22:59 Last Infusion: 02/09/20 00:51 Dose: 0 mls/hr Documented by: Infusion: 02/08/20 22:35 Dose: 1,000 mls/hr Documented by: Admin: 02/08/20 22:10 Dose: 1,000 mls/hr Documented by: AMY Vancomycin HCl/Dextrose (Vancomycin) 500 mg in 100 mls @ 150 mls/hr IV Q12H FRANCISCO JAVIER Sodium Chloride (Normal Saline 0.9%) 500 mls @ 500 mls/hr IV BOLUS ONE Stop: 02/09/20 00:45 Last Infusion: 02/09/20 00:49 Dose: 999 mls/hr Documented by: Admin: 02/09/20 00:41 Dose: 500 mls/hr Documented by: OBDULIA Magnesium Sulfate (Magnesium Sulfate) 2 gm in 50 mls @ 25 mls/hr IV NOW ONE Stop: 02/09/20 02:40 Last Admin: 02/09/20 01:29 Dose: 25 mls/hr Documented by: OBDULIA Cosigned by: AURORA Ketorolac Tromethamine (Toradol) 30 mg IV NOW ONE Stop: 02/08/20 21:58 Last Admin: 02/08/20 22:30 Dose: 30 mg Documented by: AMY Lorazepam (Ativan) 1 mg IV NOW ONE Stop: 02/08/20 21:20 Last Admin: 02/08/20 21:27 Dose: 1 mg Documented by: MMCFARL Potassium Chloride (Klor-Con M20) 40 meq PO NOW ONE Stop: 02/09/20 00:42 Last Admin: 02/09/20 01:30 Dose: 40 meq Documented by: OBDULIA Vital Signs Vital signs: Vital Signs - 8 hr 02/08/20 20:51 02/08/20 21:15 02/08/20 21:43 Temperature 103.2 F H 103 F H Pulse Rate 108 H 104 H Respiratory Rate 22 28 H Blood Pressure 160/67 H Blood Pressure [Right Arm] 129/61 Pulse Oximetry 96 93 02/08/20 22:00 Temperature Pulse Rate 102 H Respiratory Rate 30 H Blood Pressure Blood Pressure [Right Arm] 127/61 Pulse Oximetry 96 Medical Decision Making Medical Records Medical records reviewed: Yes I reviewed the patient's medical records. Lab Data Lab results reviewed: Yes I reviewed the patient's lab results. Result diagrams: 02/08/20 20:45 02/08/20 20:45 Labs: Lab Results 02/08/20 02/08/20 02/08/20 Range/Units 20:45 20:45 20:45 WBC 2.0 L (4.5-11.0) X10^3/uL RBC 4.29 (4.0-5.2) X10^6/uL Hgb 12.5 (12.0-16.0) g/dL Hct 36.0 (36-46) % MCV 83.9 (80-100) fL MCH 29.2 (26-34) PG MCHC 34.8 (30-36) % RDW 13.2 (11.6-14.8) % Plt Count 209 (150-400) X10^3/uL Neut % (Auto) 84.8 H (50-75) % Lymph % (Auto) 14.3 L (25-40) % [place] % (Auto) 0.7 L (3-14) % Eos % (Auto) 0.1 L (2-4) % Baso % (Auto) 0.1 (0-2) % Neut # (Auto) 1700 (0137-9214) /uL Lymph # (Auto) 300 L (9026-6838) /uL [place] # (Auto) 0 (0-900) /uL Eos # (Auto) 0 (0-450) /uL Baso # (Auto) 0 (0-100) /uL ESR (0-20) MM/HR Sodium 136 L (137-145) mmol/L Potassium 3.8 (3.4-5.1) mmol/L Chloride 99 (98-107) mmol/L Carbon Dioxide 32 (22-32) mmol/L BUN 13 (7-17) mg/dL Creatinine 0.52 (0.52-1.04) mg/dL Estimated GFR > 60.0 (>60) mL/min BUN/Creatinine Ratio 25.0 H (6-22) Glucose 170 H (80-110) mg/dL Lactate 2.2 H (0.7-2.1) mmol/L Calcium 9.4 (8.4-10.2) mg/dL Phosphorus (2.8-4.1) mg/dL Magnesium (1.6-2.3) mg/dL Total Bilirubin 0.7 (0.2-1.3) mg/dL AST 40 H (14-36) IU/L ALT 16 (<35) IU/L Alkaline Phosphatase 90 (38-126) U/L C-Reactive Protein 0.6 (<1.0) mg/dL Total Protein 7.6 (6.3-8.2) g/dL Albumin 3.8 (3.5-5.0) g/dL Globulin 3.8 (1.7-4.1) g/dL Albumin/Globulin Ratio 1.0 (1.0-2.8) Lipase 32 (23-300) U/L Procalcitonin (<0.5) ng/mL TSH (0.47-4.68) uIU/mL 02/08/20 02/08/20 02/08/20 Range/Units 20:45 20:45 20:45 WBC (4.5-11.0) X10^3/uL RBC (4.0-5.2) X10^6/uL Hgb (12.0-16.0) g/dL Hct (36-46) % MCV (80-100) fL MCH (26-34) PG MCHC (30-36) % RDW (11.6-14.8) % Plt Count (150-400) X10^3/uL Neut % (Auto) (50-75) % Lymph % (Auto) (25-40) % [place] % (Auto) (3-14) % Eos % (Auto) (2-4) % Baso % (Auto) (0-2) % Neut # (Auto) (6488-7734) /uL Lymph # (Auto) (2311-4374) /uL [place] # (Auto) (0-900) /uL Eos # (Auto) (0-450) /uL Baso # (Auto) (0-100) /uL ESR (0-20) MM/HR Sodium (137-145) mmol/L Potassium (3.4-5.1) mmol/L Chloride (98-107) mmol/L Carbon Dioxide (22-32) mmol/L BUN (7-17) mg/dL Creatinine (0.52-1.04) mg/dL Estimated GFR (>60) mL/min BUN/Creatinine Ratio (6-22) Glucose (80-110) mg/dL Lactate (0.7-2.1) mmol/L Calcium (8.4-10.2) mg/dL Phosphorus 3.3 (2.8-4.1) mg/dL Magnesium 1.5 L (1.6-2.3) mg/dL Total Bilirubin (0.2-1.3) mg/dL AST (14-36) IU/L ALT (<35) IU/L Alkaline Phosphatase (38-126) U/L C-Reactive Protein (<1.0) mg/dL Total Protein (6.3-8.2) g/dL Albumin (3.5-5.0) g/dL Globulin (1.7-4.1) g/dL Albumin/Globulin Ratio (1.0-2.8) Lipase (23-300) U/L Procalcitonin 0.13 (<0.5) ng/mL TSH 0.568 (0.47-4.68) uIU/mL 02/08/20 Range/Units 20:45 WBC (4.5-11.0) X10^3/uL RBC (4.0-5.2) X10^6/uL Hgb (12.0-16.0) g/dL Hct (36-46) % MCV (80-100) fL MCH (26-34) PG MCHC (30-36) % RDW (11.6-14.8) % Plt Count (150-400) X10^3/uL Neut % (Auto) (50-75) % Lymph % (Auto) (25-40) % [place] % (Auto) (3-14) % Eos % (Auto) (2-4) % Baso % (Auto) (0-2) % Neut # (Auto) (0923-3383) /uL Lymph # (Auto) (4751-4011) /uL [place] # (Auto) (0-900) /uL Eos # (Auto) (0-450) /uL Baso # (Auto) (0-100) /uL ESR 31 H (0-20) MM/HR Sodium (137-145) mmol/L Potassium (3.4-5.1) mmol/L Chloride (98-107) mmol/L Carbon Dioxide (22-32) mmol/L BUN (7-17) mg/dL Creatinine (0.52-1.04) mg/dL Estimated GFR (>60) mL/min BUN/Creatinine Ratio (6-22) Glucose (80-110) mg/dL Lactate (0.7-2.1) mmol/L Calcium (8.4-10.2) mg/dL Phosphorus (2.8-4.1) mg/dL Magnesium (1.6-2.3) mg/dL Total Bilirubin (0.2-1.3) mg/dL AST (14-36) IU/L ALT (<35) IU/L Alkaline Phosphatase (38-126) U/L C-Reactive Protein (<1.0) mg/dL Total Protein (6.3-8.2) g/dL Albumin (3.5-5.0) g/dL Globulin (1.7-4.1) g/dL Albumin/Globulin Ratio (1.0-2.8) Lipase (23-300) U/L Procalcitonin (<0.5) ng/mL TSH (0.47-4.68) uIU/mL MDM Narrative Medical decision making narrative: Patient arrived febrile and tachycardic. Does have leukopenia which is not new for her. Has not been hypotensive. Evaluation of her lower extremities concerning for cellulitis especially given the rest of her clinical presentation. She was started on vancomycin and Rocephin. I do not feel that the patient's symptoms are an anaphylactic reaction. She is in no respiratory distress. Will hold on steroids. She did take some Benadryl earlier today. Patient obviously very anxious. Discussed the case with DAWSON Ontiveros the [facility] provider who will admit for further evaluation and treatment. Discharge Plan Departure Patient Disposition: Admitted As Inpatient Clinical Impression: Cellulitis Qualifiers: Site of cellulitis: extremity Site of cellulitis of extremity: lower extremity Laterality: left Qualified Code(s): L03.116 - Cellulitis of left lower limb Discharge Date/Time: 02/08/20 22:35 Admit Date/Time: 02/08/20 22:19 Admit Provider: Andrea Ontiveros
[2020-02-08 21:09] LABS: Add Manual Diff / Slide Review NO; Basophils Absolute Auto 0 /uL (0-100); Basophils Percent Auto 0.1 % (0-2); Eosinophils Absolute Auto 0 /uL (0-450); Eosinophils Percent Auto 0.1 % (2-4); Hemoglobin 12.5 g/dL (12.0-16.0); Lymphocytes Absolute Auto 300 /uL (1100-4500); Lymphocytes Percent Auto 14.3 % (25-40); Mean Corpuscular HGB Conc 34.8 % (30-36); Mean Corpuscular Hemoglobin 29.2 PG (26-34); Mean Corpuscular Volume 83.9 fL (80-100); Monocytes Absolute Auto 0 /uL (0-900); Monocytes Percent Auto 0.7 % (3-14); Neutrophils Absolute Auto 1700 /uL (1500-7000); Neutrophils Percent Auto 84.8 % (50-75); Platelet Count 209 X10^3/uL (150-400); Red Blood Cell Count 4.29 X10^6/uL (4.0-5.2); Red Cell Distribution Width 13.2 % (11.6-14.8)
[2020-02-08 21:12] LABS: Lactate (Lactic Acid) 2.2 mmol/L (0.7-2.1)
[2020-02-08 21:13] LABS: Magnesium 1.5 mg/dL (1.6-2.3); Phosphorous 3.3 mg/dL (2.8-4.1)
[2020-02-08 21:15] VITALS: BP 129/61; PULSE 104; RESP 28; O2SAT 93
[2020-02-08 21:18] LABS: Alanine Aminotransferase 16 IU/L (<35); Albumin 3.8 g/dL (3.5-5.0); Alkaline Phosphatase 90 U/L (38-126); Aspartate Aminotransferase 40 IU/L (14-36); Bilirubin Total 0.7 mg/dL (0.2-1.3); Blood Urea Nitrogen 13 mg/dL (7-17); C-Reactive Protein Quant 0.6 mg/dL (<1.0); Calcium 9.4 mg/dL (8.4-10.2); Carbon Dioxide 32 mmol/L (22-32); Chloride 99 mmol/L (98-107); Estimated Glomerular Filt Rate > 60.0 mL/min (>60); Globulin 3.8 g/dL (1.7-4.1); Glucose 170 mg/dL (80-110); HEMOLYSIS < 15 (0-50); Lipase 32 U/L (23-300); Potassium 3.8 mmol/L (3.4-5.1); Sodium 136 mmol/L (137-145); Total Protein 7.6 g/dL (6.3-8.2)
[2020-02-08 21:26] LABS: Erythrocyte Sedimentation Rate 31 MM/HR (0-20)
[2020-02-08] MEDS: CEFTRIAXONE 1 GM/50 ML FROZ.PIGGY IV (21:27)
[2020-02-08] MEDS: LORazepam 2 MG/ML INJ 1 MG IV (21:27)
[2020-02-08] MEDS: FAMOTIDINE 20 MG/50 ML PIGGYBACK 200 MG IV (21:27)
[2020-02-08 21:31] LABS: Procalcitonin 0.13 ng/mL (<0.5)
[2020-02-08 21:43] VITALS: TEMP 39.4
[2020-02-08] MEDS: ACETAMINOPHEN 325 MG TABLET 650 MG PO (21:43)
[2020-02-08 21:47] LABS: Thyroid Stimulating Hormone 0.568 uIU/mL (0.47-4.68)
[2020-02-08 22:00] VITALS: BP 127/61; PULSE 102; RESP 30; O2SAT 96
--- NOTE | 2020-02-08 22:00 | PC.NURSE ---
Patient has warm red skin distal to knee of left lower extremity that radiats toward toes with crusting sores worse than RLE. RLE has redness noted. Pt reports saw here PCP yesterday, started on bactrim for cellulitus but reports she has an allergy to bactrim that causes her chest to close up. Pt has hx of cellulitis and sepsis. verses a venous stasis/for for artery disease changes. When I saw her last we did start her on a dose of doxycycline. She states she completed the course of this antibiotic and did report that her symptoms improved somewhat. Pain and redness worsening tonight.
--- NOTE | 2020-02-08 22:13 | PC.NURSE ---
Addendum entered by Tracy Randolph R.N. 02/08/20 22:29: Pt agreed to reattempt collection of coronavirus nasal swab, sent to lab. Original Note: Attempted to collect Coronavirus nasal swab specimen, pt unable to tolerate and hit swab away from nose stating she doesn't have virus and to take that out of my nose, Dr. Tomas aware.
[2020-02-08] MEDS: KETOROLAC 60 MG/2 ML VIAL 30 MG IV (22:30)
[2020-02-08 22:35] VITALS: TEMP 38.1
[2020-02-08 22:43] VITALS: BMI 12.9
[2020-02-08 22:57] VITALS: BP 92/43; PULSE 99; RESP 20; TEMP 38; O2SAT 91
[2020-02-08 23:01] LABS: Reflexed Lactate in 2 Hours Y
[2020-02-08] MEDS: VANCOMYCIN 1,000 MG/200 ML PIGGYBACK 200 MG IV (23:06)
--- NOTE | 2020-02-08 23:06 | PM.HP.1 ---
History of Present Illness History of Present Illness Chief complaint: Leg pain Narrative: Ms. Alissa Kirby is a 68-year-old female patient with a history type 1 diabetes mellitus, meningioma, atrial flutter, hypertension, hypothyroidism, hyperlipidemia, Sjogren syndrome, GERD, fibromyalgia, venous stasis dermatitis and depression who presents to the emergency department for complaints of fever and worsening cellulitis. The patient reports developing cellulitis of both lower extremities with wounds developing on the left lower leg since May 2019 the patient has had for emergency room visits and has followed up with her primary care provider Dr. Brittany Warner. Over the course of over since 8 months the patient has been treated with Keflex, Augmentin, penicillin, clindamycin and doxycycline with minimal or no improvement. A few days ago the patient was seen by Dr. Warner and had requested to try another course of Bactrim to which the patient has had a previous untoward reaction. The patient states she took 1 tablet of Bactrim he began to feel quite ill with a high fever up to 103.5, orthostatic dizziness, weakness and malaise. The patient's daughter brought her to the ER for evaluation. Prior to today's episode the patient has been at her baseline mentation and function. She has had no other fevers or chills she has had no known COVID-19 exposures has been isolating. She denies falls, trauma, head injury neck or back pain. Denies chest pain or palpitations, shortness of breath cough or wheezing. She has no abdominal pain and denies nausea vomiting. She reports no difficulty with bowel movements or diarrhea and denies urgency, frequency, burning or hematuria. Upon arrival to the ER patient has a temperature 103.2?, tachycardic at 108, hypertensive 160/67, respiratory rate of 22 saturating 96% on room air. No imaging is obtained, laboratory analysis finds a white count of 2.0, hemoglobin 12 5, hematocrit 36.0 and platelets 209. She has mild increase in neutrophils 84.8, lactic acid of 2.2, he has are 31, CRP of 0.6, procalcitonin of 0.3. On electrolytes she has a potassium of 3.8 and magnesium 1.5, BUN of 13 and creatinine 0.52. Her nonfasting glucose is 170. Or liver functions all within normal range and she has a TSH of 0.568. COVID-19 screening is ordered. In the ER the patient received Tylenol for fever, famotidine, Toradol, vancomycin 1 g IV and ceftriaxone 2 g IV, 2 L normal saline and lorazepam for anxiety. The patient is admitted to the medicine service for severe sepsis with bilateral lower extremity cellulitis failing outpatient treatment. Patient History Medical History Depression (Chronic) Diabetes (Chronic) Fibromyalgia (Acute) Fibromyalgia (Chronic) GERD (gastroesophageal reflux disease) (Chronic) Hyperlipidemia (Chronic) Hypothyroidism (Chronic) Meningioma (Chronic) Restless leg syndrome (Chronic) Sjogren's disease (Chronic) Sleep apnea (Chronic) Spinal stenosis, lumbar (Chronic) Venous stasis dermatitis of both lower extremities (Chronic) Surgical History H/O total hysterectomy (Resolved) History of cholecystectomy (Resolved) History of lymph node biopsy (Acute) Family & Social History Family History (Updated 02/08/20 @ 23:31 by KENYA Doty) Mother Bowel obstruction Father Psychiatric disorder Brother Hypertension Sister Cancer Social History: household members spouse,family Prior Living Arrangements House Safety & Behavioral: Feels Safe in Current Yes Environment Been Physically Hurt or No Threatened By a Person Suicidal Ideation Description None Suicide Plan Description No Plan Tobacco & Substance use: Tobacco type cigarettes Smoking Status Current some day smoker alcohol intake never alcohol intake frequency 0-2 drinks per day Substance Use Type does not use Meds Home Medications and Allergies Home Medications Medication Instructions Recorded Confirmed Type escitalopram oxalate [Lexapro] 40 mg PO DAILY #0 03/16/10 02/09/20 History omeprazole 20 mg PO DAILY #0 03/16/10 02/09/20 History cevimeline 30 mg PO TID 06/24/18 03/22/19 History insulin aspart U-100 [Novolog 4 - 6 unit SUBCUT AC 06/24/18 02/09/20 History Flexpen U-100 Insulin] lisinopril 2.5 mg PO DAILY 06/24/18 02/09/20 History hydrocodone-acetaminophen 1 tab PO TID #0 tab 06/27/18 03/22/19 Rx Lantus Solostar U-100 Insulin 30 unit SUBCUT BEDTIME 01/03/19 02/09/20 History atorvastatin 20 mg PO DAILY 01/03/19 02/09/20 History morphine [MS Contin] 15 mg PO Q8H #30 tab 01/09/19 02/09/20 Rx bupropion HCl 150 mg PO QAM 03/22/19 02/09/20 History furosemide 40 mg PO DAILY 03/22/19 02/09/20 History potassium chloride 10 meq PO DAILY 03/22/19 02/09/20 History alprazolam 0.5 mg PO BEDTIME #0 tab 03/26/19 02/09/20 Rx levothyroxine 125 mcg PO DAILY #30 cap 03/26/19 02/09/20 Rx cyclobenzaprine 10 mg PO TID PRN #10 tab 04/25/19 Rx ondansetron 4 mg PO Q6H PRN #20 tab 04/28/19 02/09/20 Rx Allergies Allergy/AdvReac Type Severity Reaction Status Date / Time sulfamethoxazole Allergy Verified 04/28/19 13:58 [From Bactrim] trimethoprim [From Bactrim] Allergy Verified 04/28/19 13:58 Review of Systems Review of Systems ROS: Yes All systems reviewed with the patient and are negative except as otherwise documented Exam Vital Signs (past 8 hours): - 02/08/20 20:51 02/08/20 21:15 02/08/20 21:43 Temperature 103.2 F H 103 F H Pulse Rate 108 H 104 H Respiratory Rate 22 28 H Blood Pressure 160/67 H Blood Pressure [Right Arm] 129/61 Pulse Oximetry 96 93 02/08/20 22:00 02/08/20 22:57 Temperature 100.4 F H Pulse Rate 102 H 99 H Respiratory Rate 30 H 20 Blood Pressure 92/43 L Blood Pressure [Right Arm] 127/61 Pulse Oximetry 96 91 Oxygen Delivery Method Nasal Cannula Oxygen Flow Rate 2 Narrative Exam Narrative: GENERAL APPEARANCE: well developed, well nourished, in no acute distress. HEENT: Normocephalic, PERRLA, conjunctiva clear, EOMs intact without nystagmus, no sinus tenderness to percussion, no rhinorrhea, mucous membranes are moist and pink without lesions or exudate. NECK/THYROID: neck supple, no JVD, no carotid bruit, no thyromegaly, trachea midline. LYMPH NODES: no cervical or supraclavicular lymphadenopathy. SKIN: [place], warm and dry, redness from ankle to tibial tuberosity, warmth anterior lower leg bilaterally with zabala scarring/venous stasis skin changes left anterior lower leg with dry wound anterior lower leg. HEART: regular rate and rhythm, S1-S2, 1/6 systolic murmur loudest left upper sternal border, no rubs or gallops, brisk capillary refill, 1+ bilateral lower extremity edema LUNGS: clear to auscultation bilaterally, no coarseness crackles or wheezing, no cough present CHEST: Symmetrical movement, no accessory muscle use, good tidal volume. ABDOMEN: Soft, no distention, no abdominal tenderness, no organomegaly, no flank or suprapubic tenderness, active bowel tones. BACK: Normal curvature, nontender to palpation, no CVA tenderness on percussion EXTREMITIES: Restless legs, moves all extremities, strength is 5/5 and symmetrical, no calf tenderness negative Jennifer sign. NEUROLOGIC: Neurologic exam asked by Ativan administered in the ER, patient falls asleep while asking questions, requires multiple requests to complete tasks, GCS 13, no focal neurologic deficits as able to identify, cranial nerves II-XII grossly intact, sensation intact to light touch PSYCH: Lethargic difficult to keep awake. Objective Labs Result Diagrams: 02/08/20 20:45 02/08/20 20:45 Labs: Laboratory Results - last 24 hr 02/08/20 02/08/20 02/08/20 20:45 20:45 20:45 WBC 2.0 L RBC 4.29 Hgb 12.5 Hct 36.0 MCV 83.9 MCH 29.2 MCHC 34.8 RDW 13.2 Plt Count 209 Neut % (Auto) 84.8 H Lymph % (Auto) 14.3 L [place] % (Auto) 0.7 L Eos % (Auto) 0.1 L Baso % (Auto) 0.1 Neut # (Auto) 1700 Lymph # (Auto) 300 L [place] # (Auto) 0 Eos # (Auto) 0 Baso # (Auto) 0 ESR Sodium 136 L Potassium 3.8 Chloride 99 Carbon Dioxide 32 BUN 13 Creatinine 0.52 Estimated GFR > 60.0 BUN/Creatinine Ratio 25.0 H Glucose 170 H Lactate 2.2 H Calcium 9.4 Phosphorus Magnesium Total Bilirubin 0.7 AST 40 H ALT 16 Alkaline Phosphatase 90 C-Reactive Protein 0.6 Total Protein 7.6 Albumin 3.8 Globulin 3.8 Albumin/Globulin Ratio 1.0 Lipase 32 Procalcitonin TSH COVID-19 PCR 02/08/20 02/08/20 02/08/20 20:45 20:45 20:45 WBC RBC Hgb Hct MCV MCH MCHC RDW Plt Count Neut % (Auto) Lymph % (Auto) [place] % (Auto) Eos % (Auto) Baso % (Auto) Neut # (Auto) Lymph # (Auto) [place] # (Auto) Eos # (Auto) Baso # (Auto) ESR Sodium Potassium Chloride Carbon Dioxide BUN Creatinine Estimated GFR BUN/Creatinine Ratio Glucose Lactate Calcium Phosphorus 3.3 Magnesium 1.5 L Total Bilirubin AST ALT Alkaline Phosphatase C-Reactive Protein Total Protein Albumin Globulin Albumin/Globulin Ratio Lipase Procalcitonin 0.13 TSH 0.568 COVID-19 PCR 02/08/20 02/08/20 20:45 22:25 WBC RBC Hgb Hct MCV MCH MCHC RDW Plt Count Neut % (Auto) Lymph % (Auto) [place] % (Auto) Eos % (Auto) Baso % (Auto) Neut # (Auto) Lymph # (Auto) [place] # (Auto) Eos # (Auto) Baso # (Auto) ESR 31 H Sodium Potassium Chloride Carbon Dioxide BUN Creatinine Estimated GFR BUN/Creatinine Ratio Glucose Lactate Calcium Phosphorus Magnesium Total Bilirubin AST ALT Alkaline Phosphatase C-Reactive Protein Total Protein Albumin Globulin Albumin/Globulin Ratio Lipase Procalcitonin TSH COVID-19 PCR Cancelled Assessment & Plan Assessment & Plan narrative: This is a 69-year-old female who presents to the ER with worsening cellulitis of bilateral lower extremities failing outpatient treatment. 1. Severe sepsis affecting cardiovascular pulmonary immune systems, present on admission, active -patient presenting with signs of sepsis with fever, tachycardia, tachypnea, leukopenia, lactic acidosis and developing hypotension. -sepsis related to bilateral lower extremity cellulitis which is treated as discussed below -treatment: Volume resuscitation 30 milliliters/kilogram in ED, broad-spectrum antibiotic vancomycin and Rocephin, pending urine and blood culture results -repeat 4 hour lactic acid has improved to 1.0 -repeat CBC, CMP and procalcitonin in the morning. 2. Bilateral lower extremity venous stasis cellulitis, present on admission, active. -patient has been treated on outpatient basis with Keflex, Augmentin, clindamycin, doxycycline, Bactrim and penicillin since May of 2019 without significant improvement. No evidence of C difficile colitis following multiple antibiotic exposures -bilateral lower leg tenderness, redness and warmth with venous stasis skin changes and dry crusted wound on the left anterior lower leg. -ordered IV broad-spectrum antibiotic vancomycin and Rocephin. -will follow CBC and procalcitonin. 3. Hypomagnesemia, acute, present on admission, active. -magnesium admission labs is 1.5, magnesium sulfate 2 g IV -repeat magnesium level in the morning 4. Paroxysmal atrial flutter, chronic, in sinus rhythm, stable -patient is in sinus rhythm with a ventricular rate of 90 on telemetry. -correct magnesium and potassium deficiency to prevent recurrence -treat underlying sepsis sepsis 5. Type 1 diabetes without complication, stable. -glucose level on admission labs is 170. -will continue the patient's home regimen of Lantus 30 mg at bedtime. -fingersticks a.c. and HS with a medium carbohydrate diet. -correctional insulin low-dose range -will obtain hemoglobin A1c, tract blood sugars and add parental insulin as needed. 6. Hypothyroidism, chronic, stable. -TSH on admission is 0.568 -continue home regimen of levothyroxine 125 mcg daily 7. Chronic pain, opioid dependency, benzo dependence, chronic, stable. -ordered oxycodone 5 mg every 4 hours as needed for pain, continue alprazolam 0.5 mg at bedtime. -continue antidepressants Lexapro 40 mg daily and bupropion 150 mg daily. 8. Dyslipidemia, chronic, stable. -will continue home regimen of atorvastatin 20 mg daily Isolation: None VTE prophylaxis: Enoxaparin, no SCDs or Silverio hose related to bilateral cellulitis IVF: Normal saline at 150 cc/hour Diet: Medium constant carbohydrate Code status: FULL CODE, the is too sedated at present to designate surrogate decision maker, patient's daughter Anny Wells is her designated emergency contact. The patient is admitted to the hospital due to the severity of her symptoms requiring IV antibiotics after failing outpatient treatment. The patient is admitted as an inpatient with expected length of stay to be greater than 2 midnights. COVID-19 COVID-19 status: Negative Result date/Date tested (Pos, Neg/Pending): 02/08/20 Scores GCS [place] coma scale eye opening: To sound [place] coma scale verbal response: Confused [place] coma scale motor response: Obey commands [place] coma scale total score: 13 Quality VTE Deep Vein Thrombosis/Pulmonary Embolism Present on Admission: No
[2020-02-08 23:30] LABS: COVID19 -Nasal RAPID Negative (Negative)
[2020-02-09] VITALS (9 sets, daily range): BP systolic 96–123; BP diastolic 45–56; PULSE 60–93; RESP 15–22; TEMP 36.4–38.3; O2SAT 95–99; BMI 28.6
[2020-02-09] MEDS: SODIUM CHLORIDE 0.9% 500 ML IV (00:41)
[2020-02-09] MEDS: SODIUM CHLORIDE 0.9% 1,000 ML 150 ML IV ×3 (01:14→16:29)
[2020-02-09] MEDS: MAGNESIUM SULFATE 2 GM/50 ML PIGGYBACK IV (01:29)
[2020-02-09] MEDS: POTASSIUM CHLORIDE 20 MEQ TAB 40 MEQ PO (01:30)
--- NOTE | 2020-02-09 02:00 | PC.NURSE ---
Admitted to room 220, pt. too sleepy was not able to orient her to her room . Daughter Anny rooming in & involved with pt's. care.Instructed daughter to call for any assistance when pt. is awake. Anny also reported that her mom had history of multiple falls at home. Fall precaution implemented, will cont. POC & monitor.
[2020-02-09] MEDS: ACETAMINOPHEN 325 MG TABLET 650 MG PO (04:15)
--- NOTE | 2020-02-09 04:40 | PC.NURSE ---
Temp. 100.9 650 mg. of Tylenol admin. PO. Pt. still very sleepy, but able to follow commands. Swallowed her pills without any problem, no coughing noted. Will cont. POC & monitor.
[2020-02-09 05:27] LABS: Add Manual Diff / Slide Review NO; Basophils Absolute Auto 0 /uL (0-100); Basophils Percent Auto 0.1 % (0-2); Eosinophils Absolute Auto 0 /uL (0-450); Eosinophils Percent Auto 0.6 % (2-4); Hematocrit 32.3 % (36-46); Hemoglobin 11.5 g/dL (12.0-16.0); Lymphocytes Absolute Auto 200 /uL (1100-4500); Lymphocytes Percent Auto 4.9 % (25-40); Mean Corpuscular HGB Conc 35.8 % (30-36); Mean Corpuscular Hemoglobin 30.4 PG (26-34); Mean Corpuscular Volume 84.9 fL (80-100); Monocytes Absolute Auto 300 /uL (0-900); Monocytes Percent Auto 6.8 % (3-14); Neutrophils Absolute Auto 4100 /uL (1500-7000); Neutrophils Percent Auto 87.6 % (50-75); Platelet Count 180 X10^3/uL (150-400); Red Cell Distribution Width 12.8 % (11.6-14.8); White Blood Cell Count 4.7 X10^3/uL (4.5-11.0)
[2020-02-09 05:36] LABS: Alanine Aminotransferase 73 IU/L (<35); Albumin Globulin Ratio 0.9 (1.0-2.8); Alkaline Phosphatase 102 U/L (38-126); Aspartate Aminotransferase 168 IU/L (14-36); BUN Creatinine Ratio 24.1 (6-22); Bilirubin Total 0.5 mg/dL (0.2-1.3); Blood Urea Nitrogen 14 mg/dL (7-17); Carbon Dioxide 25 mmol/L (22-32); Chloride 103 mmol/L (98-107); Estimated Glomerular Filt Rate > 60.0 mL/min (>60); Globulin 3.3 g/dL (1.7-4.1); Glucose 291 mg/dL (80-110); HEMOLYSIS < 15 (0-50); Magnesium 2.2 mg/dL (1.6-2.3); Potassium 3.9 mmol/L (3.4-5.1); Sodium 134 mmol/L (137-145); Total Protein 6.3 g/dL (6.3-8.2)
[2020-02-09 05:50] LABS: Procalcitonin 0.13 ng/mL (<0.5)
[2020-02-09] MEDS: PANTOPRAZOLE 20 MG TABLET PO (06:37)
[2020-02-09] MEDS: INSULIN GLARGINE 100 UNIT/ML 3ML PEN 10 UNIT SUBCUT (06:40)
--- NOTE | 2020-02-09 07:36 | DI.RAD.S_ITS ---
PROCEDURE: XR CHEST 1V INDICATIONS: fever TECHNIQUE: One view of the chest was acquired. COMPARISON: [facility], CR, XR CHEST 1V, 03/24/2019, 5:31. [facility], CR, XR CHEST 1V, 03/23/2019, 0:37. FINDINGS: Surgical changes and devices: None. Lungs and pleura: Lungs are abnormal with generalized interstitial prominence as has been previously the case. There also is focal stranding at the left lung base suspicious for pneumonia, best seen laterally.. No pleural effusions or pneumothorax. Mediastinum: Mediastinal contours appear normal. Heart size is normal. Bones and chest wall: No suspicious bony lesions. Overlying soft tissues appear unremarkable. IMPRESSION: Chronic interstitial prominence perhaps reflecting prior smoking history. What appears to be mild or early pneumonia the left lung base is superimposed, and for this reason followup to confirm resolution of abnormalities in that area is recommended to insure that mass lesion is not also present. Dictated by: Weston Paulson M.D. on 02/09/2020 at 10:28 Approved by: Weston Paulson M.D. on 02/09/2020 at 10:30
[2020-02-09] MEDS: buPROPion XL 150 MG TAB PO (08:03)
[2020-02-09] MEDS: ENOXAPARIN 40 MG/0.4 ML SYRINGE SUBCUT (08:03)
[2020-02-09] MEDS: INSULIN ASPART 100 UNIT/ML INSULN PEN SUBCUT ×4 (08:04→22:50)
[2020-02-09] MEDS: VANCOMYCIN 1,250 MG in SODIUM CHLORIDE 0.9% 250 ML IV ×2 (08:04→23:09)
[2020-02-09] MEDS: SODIUM CHLORIDE 0.9% FLUSH 10 ML IV (08:07)
[2020-02-09] MEDS: LEVOTHYROXINE 125 MCG TABLET PO (08:12)
[2020-02-09] MEDS: ESCITALOPRAM 10 MG TABLET 40 MG PO (08:12)
[2020-02-09] MEDS: MORPHINE ER 15 MG TABLET PO ×2 (09:32→17:09)
[2020-02-09] MEDS: CYCLOBENZAPRINE 10 MG TABLET PO ×2 (11:58→23:00)
--- NOTE | 2020-02-09 12:43 | PT-IP ANOTE ---
attempted PT eval but pt refused to move. stated that she only wants to sleep. pt is confused and also agitated. stated that she does not want to go home and does not want to get better, she justed wanted to sleep. attempted to move pt for positioning in bed but pt becomes more agitated. will continue to f/u.
--- NOTE | 2020-02-09 12:49 | OT.IPNOTE ---
Attempted OT eval with PT. Pt refusing to get up even though feels that her bladder is full. Pt states just wanting to sleep and does not want to go home. Pt not initiating to help with positioning in bed or wanting to wash her face after set-up of wash cloth. Pt's O2 in bed 88-89% on RA , nursing aware and put O2 on back on pt . To attempt OT eval tomorrow.
--- NOTE | 2020-02-09 13:15 | PC.NURSE ---
Pt unable to void per bedpan and unable to get up to bsc even with assist from PT/OT. Bladder scanned Pt with a result of 17mls. Notified Dr. Esqueda of the amount - no further orders at this time.
--- NOTE | 2020-02-09 13:50 | CM.IDA ---
Initial DCP Assessment Note: Patient is a 69 yo female, resident of [facility]. Presents w/suspected sepsis w/chronic cellulitis and BLE wounds PCP: Brittany Warner Payer: [employer] Reviewed chart. According to HOLGER Johnson, patient has been difficult to arouse/keep awake since being admitted. She complains of pain when awake but tends to fall back asleep quickly. RN and Dr Esqueda suspect patient has been getting too much of her morphine administered at home which might be why sepsis was suspected upon admission. This INTERACTIVE MULTIMEDIA DESIGNER requested by Dr Esqueda and HOLGER Johnson to assist in confronting patient's spouse Gurpreet after he administered patient's home morphine to her in room.. after being instructed to not administer any home medication. HOLGER Johnson had already given patient her scheduled narcotics. Met w/patient and spouse at bedside; also present was HOLGER Johnson, Dr Esqueda and Sliver Lap Machine Tender Jann. Dr Esqueda and this INTERACTIVE MULTIMEDIA DESIGNER facilitated conversation w/spouse about the gravity of his actions this morning: providing home prescribed narcotics to patient, did not consult nursing. Reiterated that [facility] policy requires all medications be dispensed/witnessed by nursing, questions/concerns about medication should be reviewed w/nursing staff. Spouse states I am very hard of hearing, I did not hear the nurse later states So you're giving me the boot and I don't need to hear any more of this bullshit . Patient asks that her stay and staff reiterate above. Patient understands that she can have her dtr Anny at bedside if she would like. Patient refused therapies today. This INTERACTIVE MULTIMEDIA DESIGNER hopes to meet w/patient and dtr this afternoon to complete full DCP assessment. LAURIE Linares Discharge Planning/Care Management CM Discharge Assessment Start: 02/09/20 12:46 Freq: Status: Active Protocol: Document 02/09/20 12:48 RAVIN (Rec: 02/09/20 13:50 RAVIN [id number]) Discharge Planning Assessment Assigned Cd Technician LAURIE Barnes DPOA/Assigned Designee Name Spouse Gurpreet Kirby Anny Wells dtr Contact Information spouse: [phone], dtr: [phone] Advance Directives? Yes History Provided By Patient,Family Member,Medical Record Prior Living Arrangements House Household Members spouse,family Type of transporation used prior to Relies on Others admit Independent with ADL's No Is patient alert and oriented? Dementia suspected, need to assess further Comment Home w/ family and HH vs SNF. INTERACTIVE MULTIMEDIA DESIGNER consult to assess for DC needs and to discuss safety in the home environment w/ patient, APS report needed (?) staff suspect spouse is over dosing narcotics at home Additional Comment Pending further assessment of needs
--- NOTE | 2020-02-09 14:12 | PC.NURSE ---
1000-Pt c/o pain to her back and legs. Daughter states that Pt takes Morphine ER 15mg TID. Notified Dr. Esqueda that Pt takes Morphine TID chronically as well as breakthrough meds. Morphine ordered and given to Pt at 1032. Pt's daughter notified this RN that Pt's Spouse was here and went down to the car to get pain meds out of Pt's purse to give to Pt. Reminded Pt that she had just been given Morphine and that she was not to take outside meds. Pt agreed. Observed Pt's Spouse enter the room and notified him that the Pt had just received her Morphine and was not to be given any outside meds. Pt held up his newspaper to indicate that he had nothing else in his hands and agreed that he would not give her anything. Daughter reports that when Dr. Esqueda left the room the Pt immediately asked for pain meds from her Spouse and he gave her a dose of Morphine. Notified Dr. Esqueda and Jann RN Coordinator and Kate ROSAW of what occurred and we then met with the Pt and Spouse and the Spouse was asked to leave and not return during Pt's hospital stay. Pt stated she didn't want Spouse to leave but agreed that her daughter who had stayed the night and been here all day was her one allotted visitor. Pt's Spouse stated this was bullshit but agreed to leave. PT/OT ordered for Pt and Pt refused to get up with them. Pt's bladder was scanned with a result of 17mls and Dr. Esqueda was notified of the results. No further orders.
--- NOTE | 2020-02-09 16:10 | P.PN_ITS ---
Subjective Subjective Date Patient Seen: 02/09/20 Time Patient Seen: 11:00 Interval history: Ms. Alissa Kirby is a 68-year-old female patient with a history type 1 diabetes mellitus, meningioma, atrial flutter, hypertension, hypothyroidism, hyperlipidemia, Sjogren syndrome, GERD, fibromyalgia, venous stasis dermatitis and depression who presents to the emergency department for complaints of fever and worsening cellulitis. She was admitted for sepsis presumed secondary to cellulitis. She was previously admitted for again sepsis where she was found to have pneumonia. She had a chest x-ray which showed possible developing pneumonia, but this may be residual from her previous disease. Her procalcitonin was negative. She has defervesced today from a T-ma x of a 103? in the emergency room. Her COVID-19 testing was negative. Patient was complaining of pain, and her home medications had not been restarted. Her was in the room and had the patient's home morphine with him. And started giving her home medications despite the nurses telling him not to do that. He was asked to leave and will not be allowed to visit the patient. Patient's daughter has expressed concern that patient is being over medicated at home. Social work was consulted and appreciate their hard work. Exam Vital Signs (past 8 hours): - 02/09/20 12:00 Temperature 98.8 F Pulse Rate 60 Respiratory Rate 17 Blood Pressure 96/45 L Pulse Oximetry 96 Oxygen Delivery Method Nasal Cannula Oxygen Flow Rate 0 Narrative Exam Narrative: GENERAL APPEARANCE: well developed, well nourished, in no acute distress. HEENT: Normocephalic, PERRLA, conjunctiva clear, EOMs intact without nystagmus, no sinus tenderness to percussion, no rhinorrhea, mucous membranes are moist and pink without lesions or exudate. NECK/THYROID: neck supple, no JVD, no carotid bruit, no thyromegaly, trachea midline. LYMPH NODES: no cervical or supraclavicular lymphadenopathy. SKIN: [place], warm and dry, redness from ankle to tibial tuberosity, warmth anterior lower leg bilaterally with zabala scarring/venous stasis skin changes left anterior lower leg with dry wound anterior lower leg. HEART: regular rate and rhythm, S1-S2, 1/6 systolic murmur loudest left upper sternal border, no rubs or gallops, brisk capillary refill, 1+ bilateral lower extremity edema LUNGS: clear to auscultation bilaterally, no coarseness crackles or wheezing, no cough present CHEST: Symmetrical movement, no accessory muscle use, good tidal volume. ABDOMEN: Soft, no distention, no abdominal tenderness, no organomegaly, no flank or suprapubic tenderness, active bowel tones. BACK: Normal curvature, nontender to palpation, no CVA tenderness on percussion EXTREMITIES: Restless legs, moves all extremities, strength is 5/5 and s ymmetrical, no calf tenderness negative Jennifer sign. NEUROLOGIC: Alert and oriented x3, no focal neurologic deficits as able to identify, cranial nerves II-XII grossly intact, sensation intact to light touch. PSYCH: Intermittently anxious, intermittently calm. When a providers in the room she cries out in pain and asked for pain medication, but when walking by her room throughout the day she is generally common mostly asleep. Objective Labs Result Diagrams: 02/09/20 05:05 02/09/20 05:05 Labs: Laboratory Results - last 24 hr 02/08/20 02/08/20 02/08/20 20:45 20:45 20:45 WBC 2.0 L RBC 4.29 Hgb 12.5 Hct 36.0 MCV 83.9 MCH 29.2 MCHC 34.8 RDW 13.2 Plt Count 209 Neut % (Auto) 84.8 H Lymph % (Auto) 14.3 L [place] % (Auto) 0.7 L Eos % (Auto) 0.1 L Baso % (Auto) 0.1 Neut # (Auto) 1700 Lymph # (Auto) 300 L [place] # (Auto) 0 Eos # (Auto) 0 Baso # (Auto) 0 ESR Sodium 136 L Potassium 3.8 Chloride 99 Carbon Dioxide 32 BUN 13 Creatinine 0.52 Estimated GFR > 60.0 BUN/Creatinine Ratio 25.0 H Glucose 170 H Hemoglobin A1c Lactate 2.2 H Calcium 9.4 Phosphorus Magnesium Total Bilirubin 0.7 AST 40 H ALT 16 Alkaline Phosphatase 90 C-Reactive Protein 0.6 Total Protein 7.6 Albumin 3.8 Globulin 3.8 Albumin/Globulin Ratio 1.0 Lipase 32 Procalcitonin TSH COVID-19 PCR 02/08/20 02/08/20 02/08/20 20:45 20:45 20:45 WBC RBC Hgb Hct MCV MCH MCHC RDW Plt Count Neut % (Auto) Lymph % (Auto) [place] % (Auto) Eos % (Auto) Baso % (Auto) Neut # (Auto) Lymph # (Auto) [place] # (Auto) Eos # (Auto) Baso # (Auto) ESR Sodium Potassium Chloride Carbon Dioxide BUN Creatinine Estimated GFR BUN/Creatinine Ratio Glucose Hemoglobin A1c Lactate Calcium Phosphorus 3.3 Magnesium 1.5 L Total Bilirubin AST ALT Alkaline Phosphatase C-Reactive Protein Total Protein Albumin Globulin Albumin/Globulin Ratio Lipase Procalcitonin 0.13 TSH 0.568 COVID-19 PCR 02/08/20 02/08/20 02/08/20 20:45 22:25 22:25 WBC RBC Hgb Hct MCV MCH MCHC RDW Plt Count Neut % (Auto) Lymph % (Auto) [place] % (Auto) Eos % (Auto) Baso % (Auto) Neut # (Auto) Lymph # (Auto) [place] # (Auto) Eos # (Auto) Baso # (Auto) ESR 31 H Sodium Potassium Chloride Carbon Dioxide BUN Creatinine Estimated GFR BUN/Creatinine Ratio Glucose Hemoglobin A1c Lactate Calcium Phosphorus Magnesium Total Bilirubin AST ALT Alkaline Phosphatase C-Reactive Protein Total Protein Albumin Globulin Albumin/Globulin Ratio Lipase Procalcitonin TSH COVID-19 PCR Cancelled Negative 02/08/20 02/09/20 02/09/20 23:15 05:05 05:05 WBC 4.7 D RBC 3.80 L Hgb 11.5 L Hct 32.3 L MCV 84.9 MCH 30.4 MCHC 35.8 RDW 12.8 Plt Count 180 Neut % (Auto) 87.6 H Lymph % (Auto) 4.9 L [place] % (Auto) 6.8 Eos % (Auto) 0.6 L Baso % (Auto) 0.1 Neut # (Auto) 4100 Lymph # (Auto) 200 L [place] # (Auto) 300 Eos # (Auto) 0 Baso # (Auto) 0 ESR Sodium Potassium Chloride Carbon Dioxide BUN Creatinine Estimated GFR BUN/Creatinine Ratio Glucose Hemoglobin A1c Lactate 1.0 Calcium Phosphorus Magnesium Total Bilirubin AST ALT Alkaline Phosphatase C-Reactive Protein Total Protein Albumin Globulin Albumin/Globulin Ratio Lipase Procalcitonin 0.13 TSH COVID-19 PCR 02/09/20 02/09/20 05:05 05:05 WBC RBC Hgb Hct MCV MCH MCHC RDW Plt Count Neut % (Auto) Lymph % (Auto) [place] % (Auto) Eos % (Auto) Baso % (Auto) Neut # (Auto) Lymph # (Auto) [place] # (Auto) Eos # (Auto) Baso # (Auto) ESR Sodium 134 L Potassium 3.9 Chloride 103 Carbon Dioxide 25 BUN 14 Creatinine 0.58 Estimated GFR > 60.0 BUN/Creatinine Ratio 24.1 H Glucose 291 H D Hemoglobin A1c 9.0 H Lactate Calcium 8.0 L Phosphorus Magnesium 2.2 Total Bilirubin 0.5 AST 168 H ALT 73 H Alkaline Phosphatase 102 C-Reactive Protein Total Protein 6.3 Albumin 3.0 L Globulin 3.3 Albumin/Globulin Ratio 0.9 L Lipase Procalcitonin TSH COVID-19 PCR Assessment & Plan Assessment & Plan narrative: Ms. Alissa Kirby is a 68-year-old female patient with a history type 1 diabetes mellitus, meningioma, atrial flutter, hy pertension, hypothyroidism, hyperlipidemia, Sjogren syndrome, GERD, fibromyalgia, venous stasis dermatitis and depression who presents to the emergency department for complaints of fever and worsening cellulitis. 1. Severe sepsis affecting cardiovascular pulmonary immune systems, present on admission, active -patient presenting with signs of sepsis with fever, tachycardia, tachypnea, leukopenia, lactic acidosis and developing hypotension. -sepsis related to bilateral lower extremity cellulitis which is treated as discussed below. Further differential includes pneumonia, but finding on x-ray may be residual from previous admission. -treatment: Volume resuscitation 30 milliliters/kilogram in ED, broad-spectrum antibiotic vancomycin and Rocephin, pending urine and blood culture results -repeat 4 hour lactic acid has improved to 1.0 -continue to follow labs. Procalcitonin has remained negative at 0.13. 2. Bilateral lower extremity venous stasis cellulitis, present on admission, active. -patient has been treated on outpatient basis with Keflex, Augmentin, clindamycin, doxycycline, Bactrim and penicillin since May of 2019 without significant improvement. No evidence of C difficile colitis following multiple antibiotic exposures -bilateral lower leg tenderness, redness and warmth with venous stasis skin changes and dry crusted wound on the left anterior lower leg. -ordered IV broad-spectrum antibiotic vancomycin and Rocephin. -will follow CBC and procalcitonin. 3. Hypomagnesemia, acute, present on admission, active. -magnesium admission labs is 1.5, repleted with magnesium sulfate 2 g IV 4. Paroxysmal atrial flutter, chronic, in sinus rhythm, stable -patient is in sinus rhythm with a ventricular rate of 90 on telemetry. -correct magnesium and potassium deficiency to prevent recurrence -treat underlying sepsis -patient on telemetry has intermittent junctional/supraventricular rhythms with abnormal P-waves. Have asked for repeat EKG to recheck. 5. Type 1 diabetes without complication, stable. -glucose level on admission labs is 170. -will continue the patient's home regimen of Lantus 30 mg at bedtime. -fingersticks a.c. and HS with a medium carbohydrate diet. -correctional insulin low-dose range -A1c of 9.0% indicating suboptimal control 6. Hypothyroidism, chronic, stable. -TSH on admission is 0.568 -continue home regimen of levothyroxine 125 mcg daily 7. Chronic pain, opioid dependency, benzo dependence, chronic, stable. -continue home pain medications, dispersed appropriately. -continue antidepressants Lexapro 40 mg daily and bupropion 150 mg daily. 8. Dyslipidemia, chronic, stable. -will continue home regimen of atorvastatin 20 mg daily Isolation: None VTE prophylaxis: Enoxaparin, no SCDs or Silverio hose related to bilateral cellulitis Diet: Medium constant carbohydrate Code status: FULL CODE, the is too sedated at present to designate surrogate decision maker, patient's daughter Anny Wells is her designated emergency contact. Quality VTE Deep Vein Thrombosis/Pulmonary Embolism Present on Admission: No
[2020-02-09] MEDS: CEFTRIAXONE 2 GM/50 ML FROZ.PIGGY IV (22:24)
[2020-02-09] MEDS: ATORVASTATIN 20 MG TABLET PO (22:49)
[2020-02-09] MEDS: INSULIN GLARGINE 100 UNIT/ML 3ML PEN 30 UNIT SUBCUT (22:50)
[2020-02-09] MEDS: OXYCODONE IR 5 MG TABLET PO (22:57)
--- NOTE | 2020-02-09 23:06 | PC.NURSE ---
Jewelry. During pt care, LEGAL EDITOR and I found yellow in color cross on neck. I placed the cross into a orange-top specimen cup with patient label on it. In the cup was other pieces of jewelry that appeared to be small chains (yellow in color). pt agreed to the cup placement. pt laying in room did not have anything to say about the situation.
[2020-02-10 00:15] VITALS: BP 123/59; PULSE 68; RESP 20; TEMP 37.6; O2SAT 99
[2020-02-10] MEDS: SODIUM CHLORIDE 0.9% 1,000 ML 150 ML IV (00:29)
[2020-02-10] MEDS: MORPHINE ER 15 MG TABLET PO ×3 (01:19→17:14)
[2020-02-10 04:15] VITALS: BP 123/58; PULSE 66; RESP 18; TEMP 37.1; O2SAT 98
[2020-02-10] MEDS: LEVOTHYROXINE 125 MCG TABLET PO (06:05)
[2020-02-10] MEDS: PANTOPRAZOLE 20 MG TABLET PO (06:05)
[2020-02-10] MEDS: INSULIN ASPART 100 UNIT/ML INSULN PEN SUBCUT ×3 (06:49→17:16)
[2020-02-10 08:00] VITALS: BP 143/66; PULSE 63; RESP 14; TEMP 37.3; O2SAT 95
[2020-02-10] MEDS: CYCLOBENZAPRINE 10 MG TABLET PO ×2 (08:27→16:28)
[2020-02-10] MEDS: ENOXAPARIN 40 MG/0.4 ML SYRINGE SUBCUT (08:27)
[2020-02-10] MEDS: buPROPion XL 150 MG TAB PO (08:27)
[2020-02-10] MEDS: ESCITALOPRAM 10 MG TABLET 40 MG PO (08:27)
[2020-02-10] MEDS: SODIUM CHLORIDE 0.9% FLUSH 10 ML IV (08:28)
[2020-02-10] MEDS: VANCOMYCIN 1,250 MG in SODIUM CHLORIDE 0.9% 250 ML IV (08:38)
[2020-02-10 09:15] LABS: Vancomycin Trough 9.9 ug/mL (10-20)
--- NOTE | 2020-02-10 12:03 | PT.IIE ---
Current Diagnoses Sepsis, unspecified organism (02/08/20) Surgical History (Last Reviewed 02/09/20 @ 03:22 by Yuval Tomas DO) H/O total hysterectomy (Resolved) History of cholecystectomy (Resolved) History of lymph node biopsy (Acute) Medical History (Last Reviewed 02/09/20 @ 03:22 by Yuval Tomas DO) Depression (Chronic) Diabetes (Chronic) Fibromyalgia (Acute) Fibromyalgia (Chronic) GERD (gastroesophageal reflux disease) (Chronic) Hyperlipidemia (Chronic) Hypothyroidism (Chronic) Meningioma (Chronic) Restless leg syndrome (Chronic) Sjogren's disease (Chronic) Sleep apnea (Chronic) Spinal stenosis, lumbar (Chronic) Venous stasis dermatitis of both lower extremities (Chronic) Physical Therapy Inpatient Evaluation/Re-Eval M1 PT/OT-IP Prior Functional Status Start: 02/09/20 12:15 Freq: NEEDED Status: Active Protocol: Document 02/10/20 12:03 AB (Rec: 02/10/20 14:[address] [facility] Medical Review Prior Functional Status Medical History Reviewed Yes Communication able to respond to questions but requires repetitions to answer. requires cues to keep eyes open Mobility and Gait stated that she is indpeendne tiwth all mobilities and ambulation without AD Social History Household Members spouse Living Arrangements House Number of Floors (Floors) One Floor Number of Stairs To Enter/Railing? 1 step to enter Home Environment Standard Height Toilet,Tub/ Shower Home Equipment Front Wheel Walker,Shower Seat with Backrest,Lift Recliner, Grab Bars Near Toilet,Grab Bars In Shower Additional Social History Comment pt stated that she sleeps on her lift chair M2 PT-IP Current Condition Start: 02/09/20 12:15 Freq: NEEDED Status: Active Protocol: Document 02/10/20 12:03 AB (Rec: 02/10/20 14:26 AB [email or web address]) Physical Therapy Current Condition Current Condition Evaluation Date 02/10/20 Treatment Diagnosis LLE cellulitis; sepsis; difficulty in walking Onset Date 02/08/20 Precautions Other Precautions falls M3 PT-IP Subjective Start: 02/09/20 12:15 Freq: NEEDED Status: Active Protocol: Document 02/10/20 12:03 AB (Rec: 02/10/20 14:[address] [facility] Subjective Physical Therapy Visit Type Type Initial Evaluation Visit Start Time 12:03 Visit Stop Time 12:35 Total Visit Minutes 32 Number of LEATHER POLISHER Visits 0 Physical Therapy Visit Comments Patient Comments initially agrees to sit up but afterwards, just wants to go back to bed but motivated and agreed to sit up again M4 PT-IP Mobility and Gait Start: 02/09/20 12:15 Freq: NEEDED Status: Active Protocol: Document 02/10/20 12:03 AB (Rec: 02/10/20 14:26 AB [id number]) PT-Bed Mobility Assessment Supine to Sit Supine to Sit Maximum Assistance,1 Person Assistance PT-Transfer Assessment Sit to and From Stand Sit to and from Stand Maximum Assistance,1 Person Assistance,2 Person Assistance ,Use of Upper Extremities Equipment Transfer Assistive Device Gait Belt,Front Wheeled Walker Orthotic/Prosthetic Devices or Brace: No Transfers Transfer Destination Chair,Bedside Commode Transfer Technique Stand Step Pivot Transfer Ability Level of Assist Maximum Assistance,1 Person Assistance,2 Person Assistance ,Use of Upper Extremities Comments Mobility Comments completed supine to sit with HOB elevated max A and cues. requires cues to keep eyes open and to continue moving to complete task. pt with (+) trunk shaking during sitting and required min to mod A for safety and maintaining sitting balance. pt requested to use the toilet. completed sit to stand from EOB max A x 2 and max cues and completed step transfer to bedside commode max A x1-2 and max cues using FWW. after using the commode, pt stated that she cannot sit up on chair and has to go back to bed. pt educated and agreed to sit on chair. pt required max A x 1-2 for sit to stand from bedside commode and was able to take a few steps to the chair max A and max cues. positioned pt on chair. call light and table placed within reach. Gait Assessment Gait Gait Assistance Required: Maximum Assistance,1 Person Assist,2 Person Assist Distance (Feet) 2 Able to Maintain Weight Bearing Status Yes During Gait Assistive Devices Assistive Device Gait Belt,Front Wheeled Walker Orthotic/Prosthetic Devices or Brace: No Gait Deviations General Gait Pattern Antalgic,Decreased Stride Length,Decreased Feet Clearance,Flexed Trunk,Step-to Gait Factors Limiting Gait Function Factors Limiting Gait Function Decreased Activity Tolerance, Decreased Strength,Difficulty Following Directions, Incoordination,Pain,Poor Balance,Poor Safety Awareness Comments Gait Comments pls refer to mobility section for details. PT-Balance Assessment Sitting Balance and Reactions Static Sitting Balance Ability Fair Dynamic Sitting Balance Ability Poor Standing Balance and Reactions Static Standing Balance Ability Poor Dynamic Standing Balance Ability Poor Device Used FWW M5 PT-IP Objective Assessments Start: 02/09/20 12:15 Freq: NEEDED Status: Active Protocol: Document 02/10/20 12:03 AB (Rec: 02/10/20 14:26 AB [email or web address]) Orientation Orientation/Cognition Level of Alertness Confusional State Orientation Name Safety Awareness Decreased Safety Awareness Memory Description Short Term Impaired Gross Range of Motion Lower Extremity ROM Assessment Within Functional Limits Strength Lower Extremity Strength Assessment Bilaterally Impaired Hip 4-/5 Knee 4-/5 Muscle Tone Muscle Tone WNL Yes M6 PT-IP Treatment Start: 02/09/20 12:15 Freq: NEEDED Status: Active Protocol: Document 02/10/20 12:03 AB (Rec: 02/10/20 14:26 AB [id number]) Physical Therapy Treatment Education Education Provided Safety M7 PT-IP Assessment and Plan Start: 02/09/20 12:15 Freq: NEEDED Status: Active Protocol: Document 02/10/20 12:03 AB (Rec: 02/10/20 14:26 AB [email or web address]) PT Summary Assessment and Plan Potential Rehabilitation Potential Good Status of Condition at Evaluation Evolving Summary Impairments Pain,ROM,Strength,Balance, Coordination,Sensation,Tone, Cognition,Bed Mobility, Transfers,Gait,Activity Tolerance Assessment Summary pt requires max A x 1-2 and max cues with all mobilities. requires motivation to participate and complete tasks and continues to be drowsy but able to open eyes and follow directions when instructed. pt will require SNF rehab to improve strength and mobility. Goals Bed Mobility Goal Minimal Assistance Transfer Goal Minimal Assistance,Front Wheeled Walker Gait Goal Minimal Assistance,Front Wheel Walker Gait Distance 50 Days to Meet Goals 10 Frequency of Treatment Frequency Of Treatment Once a Day Treatment Plan Physical Therapy Treatment Plan Bed Mobility Training,Transfer Training,Gait Training, Therapeutic Exercise,Balance Retraining,Discharge Planning, Neuromuscular Re-ed, Coordination Retraining Recommendations To Nursing Amount of Assist Needed 2 Person Assist Discharge Recommendations PT Discharge Recommendations SNF Rehab Equipment Needed for Home Before FWW if pt goes home Discharge Transportation Needs at Discharge Wheelchair/Cabulance,Stretcher /Ambulance
--- NOTE | 2020-02-10 12:08 | CM.SWNOTE ---
LIGHT TRUCK DRIVER Consult Note This LIGHT TRUCK DRIVER requested for consult; to assess safety of home environment, assess to see if APS referral necessary; there's a suspicion that medications are being mismanaged by spouse Gurpreet. Yesterday AM, this LIGHT TRUCK DRIVER, RN Coordinator, RN and Dr Esqueda confronted spouse because he had given patient her home morphine, upon her complaint about pain, after RN had specifically asked that no home meds be administered. Attempted to speak w/patient yesterday multiple times, patient was sleeping most of the day and when awake would call out for [place] her dtr Anny. Dtr Anny had spent the night w/her mom and stayed most of the day yesterday. According to the conversation yesterday w/ dtr: Patient has been heavily dependent on narcotics for approx. 2 years, she has lived w/chronic pain and has been on opioids for approx 15 years. Patient and spouse have been for 30+ years and live on the [facility]. Dtr Anny and Son CATHY live nearby, patient's other dtr Arely fairly recently, complications related to a heart condition in combination w/ heavy opioid use. Dtr has been worried about patient for years, stating she does not eat well and does not take good care of herself, dtr suspects patient over uses her home morphine to deaden herself and go into a cocoon. Dtr describes a co dependent relationship between patient and her spouse, spouse Gurpreet can often be heard yelling No! stop! Don't do that! when patient is cooking or cleaning; although Dtr has never witnessed or suspected physical, sexual abuse or financial exploitation by Gurpreet. Dtr thinks a pain management contract would serve her mom well, and she might consider this if her son CATHY was present and encouraging sobriety and recovery. Dtr has recognized her mom's memory loss but cannot get a good assessment d/t her narcotic use. This LIGHT TRUCK DRIVER asks about h/o counseling? Patient has gone to see a counselor in [place], someone a family member went to, but patient will only go once every month or two months d/t the distance. Dtr feels patient may go if this was arranged closer to home. Discussed Home Health and Dtr feels this would be a great idea, no agency preference. Dtr explained that when she or her brother drop off groceries/meals patient/spouse eat much better. Discussed meals on wheels and frozen meal options ? Dtr interested in this and wonders if the [facility] is providing meals at this time (COVID-19 pandemic)? And if they offer diabetic friendly options ? Reviewed summary of above w/ Dr Esqueda this morning during multidisciplinary rounds. This LIGHT TRUCK DRIVER suggests HH upon DC RN/PT/OT/DONOR FLOOR TECHNICIAN/LIGHT TRUCK DRIVER, no grounds for APS referral at this time, based on information provided by dtr. This LIGHT TRUCK DRIVER will attempt further conversation w/patient today if more alert. Also discussed referral to toy painter Dr Blandon ? Dr Esqueda explains Dr Blandon does not manage narcotics, only injections, so a pain management contract (taper?) using opioids will need to discussed w/ PCP. Following closely for coordination of safe dispo. Requested that Scada Technician Shaila fax HH referral to [facility] per weekly rotation and she kindly agreed. Plan to place call to spouse Gurpreet soon to review dispo as well. LAURIE Linares
--- NOTE | 2020-02-10 12:28 | P.PN_ITS ---
Subjective Subjective Date Patient Seen: 02/10/20 Time Patient Seen: 12:28 Interval history: Ms. Alissa Kirby is a 68-year-old female patient with a history type 1 diabetes mellitus, meningioma, atrial flutter, hypertension, hypothyroidism, hyperlipidemia, Sjogren syndrome, GERD, fibromyalgia, venous stasis dermatitis and depression who presented to the emergency department for complaints of fever and worsening cellulitis. She was admitted for sepsis presumed secondary to cellulitis. She was previously admitted for sepsis where she was found to have pneumonia. She had a chest x-ray which showed possible developing pneumonia, but this may be residual from her previous disease. Her procalcitonin was negative. She has defervesced today from a T-max of a 103? in the emergency room. Her COVID-19 testing was negative. She has chronic low back pain, but states this is controlled today on oral medications. She does complain of some left lower extremity pain but this has also improved today. She denies any subjective fevers or chills. She has no nausea vomiting. Patient's warmth has improved today on ceftriaxone and vancomycin. Given her improvement, and negative cultures, vancomycin will be discontinued today and she will continue on ceftriaxone. If she continues to improve anticipate she could potentially go home with home health tomorrow potentially on an oral cephalosporin. Exam Vital Signs (past 8 hours): - 02/10/20 08:00 Temperature 99.1 F Pulse Rate 63 Respiratory Rate 14 Blood Pressure 143/66 H Pulse Oximetry 95 Oxygen Delivery Method Nasal Cannula Oxygen Flow Rate 0 Narrative Exam Narrative: GENERAL APPEARANCE: well developed, well nourished, in no acute distress. HEENT: Normocephalic, PERRLA, conjunctiva clear, EOMs intact without nystagmus, no sinus tenderness to percussion, no rhinorrhea, mucous membranes are moist and pink without lesions or exudate. NECK/THYROID: neck supple, no JVD, no carotid bruit, no thyromegaly, trachea midline. LYMPH NODES: no cervical or supraclavicular lymphadenopathy. SKIN: [place], warm and dry, redness from ankle to tibial tuberosity, warmth anterior lower leg bilaterally with zabala scarring/venous stasis skin changes left anterior lower leg with dry wound anterior lower leg. HEART: regular rate and rhythm, S1-S2, 1/6 systolic murmur loudest left upper sternal border, no rubs or gallops, brisk capillary refill, 1+ bilateral lower extremity edema LUNGS: clear to auscultation bilaterally, no coarseness crackles or wheezing, no cough present CHEST: Symmetrical movement, no accessory muscle use, good tidal volume. ABDOMEN: Soft, no distention, no abdominal tenderness, no organomegaly, no flank or suprapubic tenderness, active bowel tones. BACK: Normal curvature, nontender to palpation, no CVA tenderness on percussion EXTREMITIES: Restless legs, moves all extremities, strength is 5/5 and symmetrical, no calf tenderness negative Jennifer sign. NEUROLOGIC: Alert and oriented x3, no focal neurologic deficits as able to identify, cranial nerves II-XII grossly intact, sensation intact to light touch. PSYCH: calm, appropriate behavior. Objective Labs Result Diagrams: 02/09/20 05:05 02/09/20 05:05 Labs: Laboratory Results - last 24 hr 02/10/20 07:32 Vancomycin Trough 9.9 L Assessment & Plan Assessment & Plan narrative: Ms. Alissa Kirby is a 68-year-old female patient with a history type 1 diabetes mellitus, meningioma, atrial flutter, hypertension, hypothyroidism, hyperlipidemia, Sjogren syndrome, GERD, fibromyalgia, venous stasis dermatitis and depression who presented to the emergency department for complaints of fever and worsening cellulitis. She was admitted for sepsis secondary to presumed cellulitis. She has improved with antibiotic therapy and could potentially discharge as early as tomorrow. 1. Severe sepsis affecting cardiovascular pulmonary immune systems, present on admission, active -patient presented with signs of sepsis with fever, tachycardia, tachypnea, leukopenia, lactic acidosis and developing hypotension. -sepsis related to bilateral lower extremity cellulitis which is treated as discussed below. Further differential includes pneumonia, but finding on x-ray may be residual from previous admission. -treatment: Volume resuscitation 30 milliliters/kilogram in ED, broad-spectrum antibiotic vancomycin and Rocephin. Urine negative and blood cultures without growth. -Have discontinued vancomycin today given negative cultures. Will continue ceftriaxone to ensure continued improvement in cellulitis. -appreciate PT evaluations. 2. Bilateral lower extremity venous stasis cellulitis, present on admission, active. -patient has been treated on outpatient basis with Keflex, Augmentin, clindamycin, doxycycline, Bactrim and penicillin since May of 2019 without significant improvement. No evidence of C difficile colitis following multiple antibiotic exposures -bilateral lower leg tenderness, redness and warmth with venous stasis skin changes and dry crusted wound on the left anterior lower leg. Warmth has continued to improve as has redness on IV therapy.; -ordered IV broad-spectrum antibiotic vancomycin and Rocephin. Discontinued vancomycin today given negative cultures. 3. Hypomagnesemia, acute, present on admission, active. -magnesium admission labs is 1.5, repleted with magnesium sulfate 2 g -continue to follow chemistries. 4. Paroxysmal atrial flutter, chronic, in sinus rhythm, stable -patient is in sinus rhythm on telemetry. -correct magnesium and potassium deficiency to prevent recurrence 5. Type 1 diabetes without complication, stable. -glucose level on admission labs is 170. -will continue the patient's home regimen of Lantus 30 mg at bedtime. -fingersticks a.c. and HS with a medium carbohydrate diet. -correctional insulin low-dose range -A1c of 9.0% indicating suboptimal control 6. Hypothyroidism, chronic, stable. -TSH on admission is 0.568 -continue home regimen of levothyroxine 125 mcg daily 7. Chronic pain, opioid dependency, benzo dependence, chronic, stable. -continue home pain medications, dispersed appropriately. Highly recommend outpatient referral to pain management from primary care. -continue antidepressants Lexapro 40 mg daily and bupropion 150 mg daily. 8. Dyslipidemia, chronic, stable. -will continue home regimen of atorvastatin 20 mg daily Isolation: None VTE prophylaxis: Enoxaparin Diet: Medium constant carbohydrate Code status: FULL. Dispo: Inpatient, anticipate discharge home with home health in the next 24-48 hours with continued improvement in cellulitis. COVID-19 COVID-19 status: Negative Quality VTE Deep Vein Thrombosis/Pulmonary Embolism Present on Admission: No
[2020-02-10] MEDS: SODIUM CHLORIDE 0.9% 1,000 ML 100 ML IV (12:35)
[2020-02-10 13:00] VITALS: BP 113/51; PULSE 54; RESP 16; TEMP 37.1; O2SAT 95
--- NOTE | 2020-02-10 13:34 | PC.NURSE ---
Day shift note: Patient awake, alert, and oriented to self and place, required reminder of how she got to the hospital and the situation. Medicated for muscle spasms and pain with FRANCISCO JAVIER MS extended release, and Flexeril with adequate relief. Up OOB to BSC and chair, required 2P Max [id number] belt, and frequent cues. Voided 650 ml this shift. Poor PO intake, encouraging fluids. Sleeping during care, but arouses easily. Somnolence noted during day, states she is usually sleepy at home. No additional pain medication required, other than scheduled MS. Found bottle of Bactrim pills, RX patients info, obtained and sent to pharmacy. Asked regarding any other meds in room, denied. Discussed importance of keeping all home meds at home, medication administration only to be done by RN during hospitalization. Verbalized understanding.
--- NOTE | 2020-02-10 15:19 | OT.IP.EVAL ---
Current Diagnoses Sepsis, unspecified organism (02/08/20) Past Medical History (Last Reviewed 02/09/20 @ 03:22 by Yuval Tomas DO) Depression (Chronic) Diabetes (Chronic) Fibromyalgia (Acute) Fibromyalgia (Chronic) GERD (gastroesophageal reflux disease) (Chronic) Hyperlipidemia (Chronic) Hypothyroidism (Chronic) Meningioma (Chronic) Restless leg syndrome (Chronic) Sjogren's disease (Chronic) Sleep apnea (Chronic) Spinal stenosis, lumbar (Chronic) Venous stasis dermatitis of both lower extremities (Chronic) Surgical History (Last Reviewed 02/09/20 @ 03:22 by Yuval Tomas DO) H/O total hysterectomy (Resolved) History of cholecystectomy (Resolved) History of lymph node biopsy (Acute) Occupational Therapy Inpatient Evaluation/Re-Eval M1 PT/OT-IP Prior Functional Status Start: 02/09/20 12:15 Freq: NEEDED Status: Active Protocol: Document 02/10/20 15:42 CGR (Rec: 02/10/20 15:54 CGR [email or web address]) Medical Review Prior Functional Status Medical History Reviewed Yes Communication pt is an effective verbal communicator Mobility and Gait stated that she is IND all mobilities and ambulation without AD Activities of Daily Living and IADL's Pt states she was IND in all ADLs without AD Social History Household Members spouse Living Arrangements House Number of Floors (Floors) One Floor Number of Stairs To Enter/Railing? 1 step to enter Home Environment Standard Height Toilet,Tub/ Shower Home Equipment Front Wheel Walker,Shower Seat with Backrest,Lift Recliner, Grab Bars Near Toilet,Grab Bars In Shower Employment Status Retired Additional Social History Comment pt stated that she sleeps on her lift chair M2 OT-IP Current Condition Start: 02/10/20 15:41 Freq: Status: Active Protocol: Document 02/10/20 15:42 CGR (Rec: 02/10/20 15:54 CGR [email or web address]) Occupational Therapy Current Condition Current Condition Evaluation Date 02/10/20 Treatment Diagnosis LLE cellulitis causing sepsis Diagnosis Onset Date 02/08/20 M3 OT- IP Subjective and Pain Start: 02/10/20 15:41 Freq: Status: Active Protocol: Document 02/10/20 15:42 CGR (Rec: 02/10/20 15:54 CGR [email or web address]) OT- Subjective Occupational Therapy Visit Type Type Initial Evaluation Visit Start Time 15:03 Visit Stop Time 15:19 Total Visit Minutes 16 Notes Pt's daughter entered the room at end of session. Occupational Therapy Visit Comments Patient Comments I was able to do everything like a normal person OT Pain Assessment Pain When Pain Assessed At Rest Pain Present Pain Present Pain Reported Location Left Leg Intensity 7 Scale Used Numeric (0 - 10) Management Techniques Modification of Treatment,Re- positioning,Timing of Activity with Medications M4 OT- IP ADL's Start: 02/10/20 15:41 Freq: Status: Active Protocol: Document 02/10/20 15:42 CGR (Rec: 02/10/20 15:54 CGR [email or web address]) OT [id number] Comments OT Self-Feeding Comments not meal time OT ADL-Grooming Comments OT Grooming Comments pt declined OT ADL-Oral Care Comments Oral Care Comments pt declined OT ADL-Dressing General Eval Lower Body Dressing Ability Total Assistance OT ADL-Toileting Comments OT Toileting Comments not performed, pt declined need OT ADL-Bathing Comments OT Bathing Comments not performed M5 OT- IP IADL's Start: 02/10/20 15:41 Freq: Status: Active Protocol: Document 02/10/20 15:42 CGR (Rec: 02/10/20 15:54 CGR [email or web address]) OT-Instrumental Activities of Daily Living Deficits IADL Deficits Identified Deficits Home Safety Awareness Awareness of Need for Assistance at Home Decreased Awareness Ability to Problem Solve Emergency Unable to Problem Solve Situations Medication Management Medication Management Caregiver Administers Money Management Money Management Caregiver Provides Assistance Meal Preparation Meal Preparation Caregiver Provides Assist Adventure Guide Adventure Guide Caregiver Provides Assist Driving Driving Concerns Identified Regarding Safety Driving Comments 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 OT- IP Functional Cognition Start: 02/10/20 15:41 Freq: Status: Active Protocol: Document 02/10/20 15:42 CGR (Rec: 02/10/20 15:54 CGR [email or web address]) Cognitive Factors Limiting Selfcare Function Cognitive Ability Level of Alertness Alert Patient Orientation Name,Age,Birthday,Month,Date, Year,Day of Week,Place, Situation Attention Span Ability Capable of Focused Attention, Capable of Sustained Attention Ability to Follow Commands Able to Follow One Step Commands with Increased Time, Able to Follow One Step Commands with Repetition Cognitive Comments Cognitive Assessment Comments Pt needs extra time for cognitive processing but appears more clear than in previous reports. OT- Vision and Hearing OT- Hearing Assessment OT- Hearing Assessment WFL OT- Vision Assessment Visual Acuity Glasses For Reading Visual Attentiveness WFL Occular Pursuits WFL Vision Assessment Comments Pt kept eyes open throughout session. M7 OT- IP Mobility and Balance Start: 02/10/20 15:41 Freq: Status: Active Protocol: Document 02/10/20 15:42 CGR (Rec: 02/10/20 15:54 CGR [email or web address]) OT- Bed Mobility Assessment Sit to Supine Sit to Supine Assist Standby Assistance Scooting Scooting to Edge of Bed Standby Assistance OT-Transfer Assessment Sit to and From Stand Sit to and from Stand Contact Guard Assistance Transfers Transfer Ability Contact Guard Assistance Technique Transfer Destination Bed,Chair Transfer Technique Stand Step Pivot Devices Transfer Assistive Devices Gait Belt,Front Wheeled Walker Comments Mobility Comments Pt was able to stand from chair with CGA and transfer to the edge of the bed with CGA. Pt stated dizziness upon initially sitting up without back support but BP 130/56 and pt stated that dizziness improved. OT- Gait Assessment Comments Gait Ability Comments Pt only transfered from chair to bed OT- Balance Assessment Sitting Balance and Reactions Static Sitting Balance Ability Fair Dynamic Sitting Balance Ability Poor M8 OT- IP Objective Assessments Start: 02/10/20 15:41 Freq: Status: Active Protocol: Document 02/10/20 15:42 CGR (Rec: 02/10/20 15:54 CGR [email or web address]) OT Gross Range of Motion Upper Extremity Range of Motion Assessment Within Functional Limits OT Strength Upper Extremity Strength Assessment Within Functional Limits OT- Coordination Assessment Upper Extremity Finger to Nose Test Within Functional Limits Finger Tapping Test Within Functional Limits OT-Muscle Tone Assessment Muscle Tone WNL Yes OT Sensation Assessment Edema Edema Absent M9 OT- IP Assessment and Plan Start: 02/10/20 15:41 Freq: Status: Active Protocol: Document 02/10/20 15:42 CGR (Rec: 02/10/20 15:54 CGR [email or web address]) OT Summary Assessment and Plan Potential Rehabilitation Potential Good Analytic Complexity at Evaluation Low Summary OT Impairments Pain,Balance,Functional Cognition,Functional Mobility, Grooming,Dressing,Toileting, Bathing,Toilet Transfers, Shower Transfers,Activity Tolerance Progress Towards Goals Progressing Toward Goals Assessment Summary Pt presents as a low complexity evaluation s/p admission for sepsis from LLE cellulitis. Pt appears more cognitively clear than in previous reports and was able to transfer with less assist. Pt reported throbbing to the LLE after transfer, typical with cellulitis. Pt is progressing with her ability to perform ADLs and functional mobility and is likely to benefit from continued therapy . Goals Grooming Goal Independent Dressing Goal Independent Toileting Goal Independent Bathing Goal Independent Toilet Transfer Goal Independent Shower Transfer Goal Independent Days to Meet Goals 5 Frequency of Treatment Frequency Of Treatment Once a Day Treatment Plan OT Treatment Plan ADL Training,Functional Cognition Training,Functional Mobility,Patient/Family Education,Discharge Planning Other Treatment Recommendations and Next Pt would benefit from Treatment Focus endurance activity and shower. Discharge Recommendations OT Discharge Recommendations Home with Assistance Home Equipment Needs TBD Transportation Needs at Discharge Private Vehicle
[2020-02-10 16:35] VITALS: BP 137/66; PULSE 64; RESP 17; TEMP 36.4; O2SAT 96
[2020-02-10 21:00] VITALS: BP 148/66; PULSE 63; RESP 19; TEMP 36.3; O2SAT 99
[2020-02-10] MEDS: ATORVASTATIN 20 MG TABLET PO (21:36)
[2020-02-10] MEDS: GABAPENTIN 600 MG TABLET PO (21:36)
[2020-02-10] MEDS: CEFTRIAXONE 2 GM/50 ML FROZ.PIGGY IV (21:36)
[2020-02-10] MEDS: ALPRAZolam 0.5 MG TABLET PO (21:36)
[2020-02-10] MEDS: INSULIN GLARGINE 100 UNIT/ML 3ML PEN 35 UNIT SUBCUT (21:37)
[2020-02-11] VITALS (8 sets, daily range): BP systolic 126–147; BP diastolic 56–75; PULSE 52–62; RESP 15–20; TEMP 36.1–36.7; O2SAT 96–98
[2020-02-11] MEDS: MORPHINE ER 15 MG TABLET PO ×3 (00:15→16:53)
[2020-02-11 05:25] LABS: Add Manual Diff / Slide Review NO; Basophils Absolute Auto 0 /uL (0-100); Basophils Percent Auto 0.7 % (0-2); Eosinophils Absolute Auto 200 /uL (0-450); Eosinophils Percent Auto 4.6 % (2-4); Hematocrit 32.8 % (36-46); Hemoglobin 11.1 g/dL (12.0-16.0); Lymphocytes Absolute Auto 1500 /uL (1100-4500); Lymphocytes Percent Auto 35.4 % (25-40); Mean Corpuscular HGB Conc 33.9 % (30-36); Mean Corpuscular Hemoglobin 28.5 PG (26-34); Mean Corpuscular Volume 84.3 fL (80-100); Monocytes Absolute Auto 300 /uL (0-900); Monocytes Percent Auto 6.9 % (3-14); Neutrophils Absolute Auto 2300 /uL (1500-7000); Neutrophils Percent Auto 52.4 % (50-75); Platelet Count 153 X10^3/uL (150-400); Red Blood Cell Count 3.89 X10^6/uL (4.0-5.2); Red Cell Distribution Width 13.3 % (11.6-14.8); White Blood Cell Count 4.3 X10^3/uL (4.5-11.0)
[2020-02-11 05:39] LABS: Alanine Aminotransferase 65 IU/L (<35); Albumin 2.7 g/dL (3.5-5.0); Albumin Globulin Ratio 0.8 (1.0-2.8); Alkaline Phosphatase 115 U/L (38-126); Aspartate Aminotransferase 45 IU/L (14-36); Bilirubin Total 0.3 mg/dL (0.2-1.3); Bilirubin Unconjugated 0.2 mg/dL (0.0-1.1); Blood Urea Nitrogen 11 mg/dL (7-17); Calcium 8.2 mg/dL (8.4-10.2); Carbon Dioxide 27 mmol/L (22-32); Chloride 105 mmol/L (98-107); Estimated Glomerular Filt Rate > 60.0 mL/min (>60); Globulin 3.5 g/dL (1.7-4.1); Glucose 123 mg/dL (80-110); HEMOLYSIS < 15 (0-50); Magnesium 1.8 mg/dL (1.6-2.3); Sodium 136 mmol/L (137-145); Total Protein 6.2 g/dL (6.3-8.2)
[2020-02-11] MEDS: PANTOPRAZOLE 20 MG TABLET PO (06:10)
[2020-02-11] MEDS: LEVOTHYROXINE 125 MCG TABLET PO (06:10)
[2020-02-11] MEDS: FUROSEMIDE 40 MG TABLET PO (09:46)
[2020-02-11] MEDS: ENOXAPARIN 40 MG/0.4 ML SYRINGE SUBCUT (09:46)
[2020-02-11] MEDS: ESCITALOPRAM 10 MG TABLET 40 MG PO (09:48)
[2020-02-11] MEDS: CYCLOBENZAPRINE 10 MG TABLET PO ×3 (09:55→22:27)
--- NOTE | 2020-02-11 11:23 | OT.IP.TRT ---
Current Diagnoses Sepsis, unspecified organism (02/08/20) Occupational Therapy Treatment Note M2 OT-IP Current Condition Start: 02/10/20 15:41 Freq: Status: Active Protocol: Document 02/10/20 15:42 CGR (Rec: 02/10/20 15:54 CGR [email or web address]) Occupational Therapy Current Condition Current Condition Evaluation Date 02/10/20 Treatment Diagnosis LLE cellulitis causing sepsis Diagnosis Onset Date 02/08/20 M3 OT- IP Subjective and Pain Start: 02/10/20 15:41 Freq: Status: Active Protocol: Document 02/11/20 14:44 CGR (Rec: 02/11/20 14:53 CGR [email or web address]) OT- Subjective Occupational Therapy Visit Type Type Progress Note Visit Start Time 10:30 Visit Stop Time 11:23 Total Visit Minutes 53 Occupational Therapy Visit Comments Patient Comments Oh, I can't do a shower today, I am just too tired. OT Pain Assessment Pain When Pain Assessed At Rest Pain Present Pain Present Pain Reported Location Left Leg Intensity 7 Management Techniques Modification of Treatment, Timing of Activity with Medications M4 OT- IP ADL's Start: 02/10/20 15:41 Freq: Status: Active Protocol: Document 02/11/20 14:44 CGR (Rec: 02/11/20 14:53 CGR [email or web address]) OT [id number] Comments OT Self-Feeding Comments not meal time OT ADL-Grooming General Evaluation Grooming Ability Maximum Assistance,Total Assistance Areas Needing Assistance Combing/Brushing Hair Comments OT Grooming Comments Pt needed max to total a for brushing out extremely tangled hair. OT ADL-Oral Care Comments Oral Care Comments pt declined to perform OT ADL-Dressing Comments OT Dressing Comments not performed OT ADL-Toileting General Evaluation Toileting Ability Standby Assistance Devices Toileting Assistive Devices Commode,Grab Bars Comments OT Toileting Comments seated on toielt for urination OT ADL-Bathing Comments OT Bathing Comments Pt declined M5 OT- IP IADL's Start: 02/10/20 15:41 Freq: Status: Active Protocol: Document 02/10/20 15:42 CGR (Rec: 02/10/20 15:54 CGR [email or web address]) OT-Instrumental Activities of Daily Living Deficits IADL Deficits Identified Deficits Home Safety Awareness Awareness of Need for Assistance at Home Decreased Awareness Ability to Problem Solve Emergency Unable to Problem Solve Situations Medication Management Medication Management Caregiver Administers Money Management Money Management Caregiver Provides Assistance Meal Preparation Meal Preparation Caregiver Provides Assist Hydrogenation Operator Hydrogenation Operator Caregiver Provides Assist Driving Driving Concerns Identified Regarding Safety Driving Comments 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 OT- IP Functional Cognition Start: 02/10/20 15:41 Freq: Status: Active Protocol: Document 02/10/20 15:42 CGR (Rec: 02/10/20 15:54 CGR [email or web address]) Cognitive Factors Limiting Selfcare Function Cognitive Ability Level of Alertness Alert Patient Orientation Name,Age,Birthday,Month,Date, Year,Day of Week,Place, Situation Attention Span Ability Capable of Focused Attention, Capable of Sustained Attention Ability to Follow Commands Able to Follow One Step Commands with Increased Time, Able to Follow One Step Commands with Repetition Cognitive Comments Cognitive Assessment Comments Pt needs extra time for cognitive processing but appears more clear than in previous reports. OT- Vision and Hearing OT- Hearing Assessment OT- Hearing Assessment WFL OT- Vision Assessment Visual Acuity Glasses For Reading Visual Attentiveness WFL Occular Pursuits WFL Vision Assessment Comments Pt kept eyes open throughout session. M7 OT- IP Mobility and Balance Start: 02/10/20 15:41 Freq: Status: Active Protocol: Document 02/11/20 14:44 CGR (Rec: 02/11/20 14:53 CGR [email or web address]) OT- Bed Mobility Assessment Rolling Type of Rolling Roll to Left Level of Assistance Standby Assistance Supine to Sit Supine to Sit Assist Standby Assistance Scooting Scooting to Edge of Bed Standby Assistance OT-Transfer Assessment Sit to and From Stand Sit to and from Stand Standby Assistance,Contact Guard Assistance Transfers Transfer Ability Standby Assistance,Contact Guard Assistance Technique Transfer Destination Bed,Chair,Toilet Transfer Technique Stand Step Pivot Devices Transfer Assistive Devices Gait Belt,Front Wheeled Walker Comments Mobility Comments Pt transfered from the bed to the chair for brushing out her hair. Pt then requested to get up to the toielt and performed urination before returing to the chair. Pt left sitting in the chair at the end of the session. OT- Gait Assessment Gait Gait Assistance Required: Standby Assistance,Contact Guard Assist Assistive Devices Assistive Device Gait Belt,Front Wheeled Walker Comments Gait Ability Comments Mobility around the room. OT- Balance Assessment Sitting Balance and Reactions Static Sitting Balance Ability Fair Dynamic Sitting Balance Ability Fair M8 OT- IP Objective Assessments Start: 02/10/20 15:41 Freq: Status: Active Protocol: Document 02/10/20 15:42 CGR (Rec: 02/10/20 15:54 CGR [email or web address]) OT Gross Range of Motion Upper Extremity Range of Motion Assessment Within Functional Limits OT Strength Upper Extremity Strength Assessment Within Functional Limits OT- Coordination Assessment Upper Extremity Finger to Nose Test Within Functional Limits Finger Tapping Test Within Functional Limits OT-Muscle Tone Assessment Muscle Tone WNL Yes OT Sensation Assessment Edema Edema Absent M9 OT- IP Assessment and Plan Start: 02/10/20 15:41 Freq: Status: Active Protocol: Document 02/11/20 14:44 CGR (Rec: 02/11/20 14:53 CGR [email or web address]) OT Summary Assessment and Plan Potential Rehabilitation Potential Good Analytic Complexity at Evaluation Low Summary OT Impairments Pain,Balance,Functional Cognition,Functional Mobility, Grooming,Dressing,Toileting, Bathing,Toilet Transfers, Shower Transfers,Activity Tolerance Progress Towards Goals Progressing Toward Goals Assessment Summary Pt is progressing well with therapy. Pt will continue to benefit from OT services while hospitalized to address declines to endurance, ADLs and functional mobility. Pt may benefit from home health upon discharge. Goals Grooming Goal Independent Dressing Goal Independent Toileting Goal Independent Bathing Goal Independent Toilet Transfer Goal Independent Shower Transfer Goal Independent Days to Meet Goals 4 Frequency of Treatment Frequency Of Treatment Once a Day Treatment Plan OT Treatment Plan ADL Training,Functional Cognition Training,Functional Mobility,Patient/Family Education,Discharge Planning Other Treatment Recommendations and Next Pt would benefit from Treatment Focus endurance activity and shower. Discharge Recommendations OT Discharge Recommendations Home with Assistance Home Equipment Needs TBD Transportation Needs at Discharge Private Vehicle
[2020-02-11] MEDS: INSULIN ASPART 100 UNIT/ML INSULN PEN SUBCUT ×2 (12:18→16:52)
[2020-02-11] MEDS: SODIUM CHLORIDE 0.9% 1,000 ML 100 ML IV ×2 (12:55)
--- NOTE | 2020-02-11 12:58 | PT.IPTN ---
Current Diagnoses Sepsis, unspecified organism (02/08/20) Physical Therapy Treatment Note M2 PT-IP Current Condition Start: 02/09/20 12:15 Freq: NEEDED Status: Active Protocol: Document 02/10/20 12:03 AB (Rec: 02/10/20 14:26 AB [email or web address]) Physical Therapy Current Condition Current Condition Evaluation Date 02/10/20 Treatment Diagnosis LLE cellulitis; sepsis; difficulty in walking Onset Date 02/08/20 Precautions Other Precautions falls M3 PT-IP Subjective Start: 02/09/20 12:15 Freq: NEEDED Status: Active Protocol: Document 02/11/20 12:58 DLM (Rec: 02/11/20 13:21 DLM [email or web address]) Subjective Physical Therapy Visit Type Type Treatment Note Visit Start Time 12:25 Visit Stop Time 12:58 Total Visit Minutes 33 Number of MEAT STOCKER Visits 0 Physical Therapy Visit Comments Patient Comments She reports feeling very weak and tired. She does not feel ready to go home today. Therapy Pain Assessment Pain When Pain Assessed After Treatment Pain Present Pain Present Pain Reported Location Left Leg Intensity 3 Scale Used Numeric (0 - 10) Description Aching,Chronic Pain Management Techniques Re-positioning M4 PT-IP Mobility and Gait Start: 02/09/20 12:15 Freq: NEEDED Status: Active Protocol: Document 02/11/20 12:58 DLM (Rec: 02/11/20 13:21 DLM [email or web address]) PT-Bed Mobility Assessment Rolling Type of Rolling Roll to Right Supine to Sit Supine to Sit Independent Sit to Supine Sit to Supine Independent Scooting Scooting to Edge of Bed Independent PT-Transfer Assessment Sit to and From Stand Sit to and from Stand Standby Assistance Equipment Transfer Assistive Device Gait Belt,Front Wheeled Walker Orthotic/Prosthetic Devices or Brace: No Transfers Transfer Destination Bed,Chair,Toilet Transfer Technique Stand Step Pivot Transfer Ability Level of Assist Standby Assistance,Use of Upper Extremities Comments Mobility Comments she c/o knee pain during sit- stand Gait Assessment Gait Gait Assistance Required: Standby Assistance Distance (Feet) 25 Assistive Devices Assistive Device Gait Belt,Front Wheeled Walker Gait Deviations General Gait Pattern Flexed Trunk Factors Limiting Gait Function Factors Limiting Gait Function Decreased Activity Tolerance, Pain Comments Gait Comments she ambulated in the room around the bed, to the toilet, to the sink to wash hands and then back to bed PT-Balance Assessment Sitting Balance and Reactions Static Sitting Balance Ability Good Dynamic Sitting Balance Ability Good Standing Balance and Reactions Static Standing Balance Ability Good Dynamic Standing Balance Ability Good Device Used FWW M5 PT-IP Objective Assessments Start: 02/09/20 12:15 Freq: NEEDED Status: Active Protocol: Document 02/10/20 12:03 AB (Rec: 02/10/20 14:26 AB [email or web address]) Orientation Orientation/Cognition Level of Alertness Confusional State Orientation Name Safety Awareness Decreased Safety Awareness Memory Description Short Term Impaired Gross Range of Motion Lower Extremity ROM Assessment Within Functional Limits Strength Lower Extremity Strength Assessment Bilaterally Impaired Hip 4-/5 Knee 4-/5 Muscle Tone Muscle Tone WNL Yes M6 PT-IP Treatment Start: 02/09/20 12:15 Freq: NEEDED Status: Active Protocol: Document 02/11/20 12:58 DLM (Rec: 02/11/20 13:21 DLM [email or web address]) Physical Therapy Treatment Education Education Provided Safety Equipment Issued Equipment Type and Company she has a fWW to use at home M7 PT-IP Assessment and Plan Start: 02/09/20 12:15 Freq: NEEDED Status: Active Protocol: Document 02/11/20 12:58 DLM (Rec: 02/11/20 13:21 DLM [email or web address]) PT Summary Assessment and Plan Summary Impairments Pain,ROM,Strength,Balance, Sensation,Cognition,Bed Mobility,Transfers,Gait, Activity Tolerance Progress Towards Goals Progressing Toward Goals Assessment Summary She is alert today and showed good improvement in her mobility. She tolerated short distances of gait well in her room with fWW. She continues to describe feeling weak in general. She appears safe to discharge home with famility assist when medically stable. Home health would be helpful to assist with full return of her strength and activity tolerance. Upgraded her goals to reflect her current progress Goals Bed Mobility Goal Minimal Assistance Transfer Goal Independent,Front Wheeled Walker Gait Goal Standby Assistance,Front Wheel Walker Gait Distance 50 Days to Meet Goals 10 Frequency of Treatment Frequency Of Treatment Once a Day Treatment Plan Physical Therapy Treatment Plan Bed Mobility Training,Transfer Training,Gait Training, Therapeutic Exercise,Balance Retraining,Discharge Planning, Neuromuscular Re-ed Recommendations To Nursing Amount of Assist Needed 1 Person Assist Discharge Recommendations PT Discharge Recommendations Home with Assistance,Home Health Equipment Needed for Home Before she has fWW for home use Discharge Transportation Needs at Discharge Private Vehicle
--- NOTE | 2020-02-11 14:12 | PC.NURSE ---
Day shift note: Weaned to RA, sats 96-98%.
--- NOTE | 2020-02-11 14:46 | P.PN_ITS ---
Subjective Subjective Date Patient Seen: 02/11/20 Interval history: Ms. Alissa Kirby is a 68-year-old female patient with a history type 1 diabetes mellitus, meningioma, atrial flutter, hypertension, hypothyroidism, hyperlipidemia, Sjogren syndrome, GERD, fibromyalgia, venous stasis dermatitis and depression who presented to the emergency department for complaints of fever and worsening cellulitis. She was admitted for sepsis presumed secondary to cellulitis. She was previously admitted for sepsis where she was found to have pneumonia. She had a chest x-ray which showed possible developing pneumonia, but this may be residual from her previous disease. Her procalcitonin was 0.13. She has defervesced from a T-max of a 103? in the emergency room. Her COVID-19 testing was negative. She has chronic low back pain, but states this is controlled on oral medications. Patient's warmth has improved today on ceftriaxone and vancomycin and vancomycin was discontinued on 02/09 due to negative cultures. Patient was seen by PT/OT earlier today and recommended could DC home when ready with home health services. She uses front wheel walker. She states she feels too weak to go home today. Exam Vital Signs (past 8 hours): - 02/11/20 07:50 02/11/20 09:01 02/11/20 11:55 Temperature 98 F Pulse Rate 60 Respiratory Rate 15 16 Blood Pressure 136/64 131/56 L Pulse Oximetry 97 98 Oxygen Delivery Method Nasal Cannula Oxygen Flow Rate 0 Narrative Exam Narrative: General: Alert and pleasant female in no acute distress Lungs: Clear to auscultation Heart:Regular rate and rhythm Abdomen: Soft nontender Extremities: Right leg with normal coloration, no edema, no tenderness. Left leg with significant chronic venous stasis changes and there is mild macular erythema on the thomas and calf areas. No oozing or drainage. Neurological: Nonfocal Objective Labs Result Diagrams: 02/11/20 05:05 02/11/20 05:05 Labs: Laboratory Results - last 24 hr 02/11/20 02/11/20 05:05 05:05 WBC 4.3 L RBC 3.89 L Hgb 11.1 L Hct 32.8 L MCV 84.3 MCH 28.5 MCHC 33.9 RDW 13.3 Plt Count 153 Neut % (Auto) 52.4 D Lymph % (Auto) 35.4 D [place] % (Auto) 6.9 Eos % (Auto) 4.6 H Baso % (Auto) 0.7 Neut # (Auto) 2300 Lymph # (Auto) 1500 [place] # (Auto) 300 Eos # (Auto) 200 Baso # (Auto) 0 Sodium 136 L Potassium 4.0 Chloride 105 Carbon Dioxide 27 BUN 11 Creatinine 0.44 L Estimated GFR > 60.0 BUN/Creatinine Ratio 25.0 H Glucose 123 H D Calcium 8.2 L Magnesium 1.8 Total Bilirubin 0.3 Conjugated Bilirubin 0.0 Unconjugated Bilirubin 0.2 AST 45 H ALT 65 H Alkaline Phosphatase 115 Total Protein 6.2 L Albumin 2.7 L Globulin 3.5 Albumin/Globulin Ratio 0.8 L Assessment & Plan Assessment & Plan narrative: Ms. Alissa Kirby is a 68-year-old female patient with a history type 1 diabetes mellitus, meningioma, atrial flutter, hypertension, hypothyroidism, hyperlipidemia, Sjogren syndrome, GERD, fibromyalgia, venous stasis dermatitis and depression who presented to the emergency department for complaints of fever and worsening cellulitis. She was admitted for sepsis secondary to presumed cellulitis. She has improved with antibiotic therapy and could potentially discharge tomorrow. 1. Severe sepsis affecting cardiovascular pulmonary immune systems, present on admission, active -patient presented with signs of sepsis with fever, tachycardia, tachypnea, leukopenia, lactic acidosis and developing hypotension. -sepsis related to bilateral lower extremity cellulitis which is treated as discussed below. Further differential includes pneumonia, but finding on x-ray may be residual from previous admission. -treatment: Volume resuscitation 30 milliliters/kilogram in ED, broad-spectrum antibiotic vancomycin and Rocephin. Urine negative and blood cultures without growth. -vancomycin discontinued 02/09 given negative cultures. Will continue ceftriaxone to ensure continued improvement in cellulitis. -appreciate PT evaluations. 2. Bilateral lower extremity venous stasis cellulitis, present on admission, active. -patient has been treated on outpatient basis with Keflex, Augmentin, clindamycin, doxycycline, Bactrim and penicillin since May of 2019 without significant improvement. No evidence of C difficile colitis following multiple antibiotic exposures -bilateral lower leg tenderness, redness and warmth with venous stasis skin changes and dry crusted wound on the left anterior lower leg. Warmth has continued to improve as has redness on IV therapy.; -continue IV Rocephin 3. Hypomagnesemia, acute, present on admission, resolved. -magnesium admission labs is 1.5, repleted with magnesium sulfate 2 g 4. Paroxysmal atrial flutter, chronic, in sinus rhythm, stable -patient is in sinus rhythm on telemetry. -corrected magnesium and potassium deficiency to prevent recurrence 5. Type 1 diabetes without complication, stable. -glucose level on admission labs is 170. -patient's Lantus ones increased from 30 to 35 units HS -fingersticks a.c. and HS with a medium carbohydrate diet. -correctional insulin low-dose range -A1c of 9.0% indicating suboptimal control 6. Hypothyroidism, chronic, stable. -TSH on admission is 0.568 -continue home regimen of levothyroxine 125 mcg daily 7. Chronic pain, opioid dependency, benzo dependence, chronic, stable. -continue home pain medications, dispersed appropriately. Highly recommend outpatient referral to pain management from primary care. -continue antidepressants Lexapro 40 mg daily and bupropion 150 mg daily. 8. Dyslipidemia, chronic, stable. -will continue home regimen of atorvastatin 20 mg daily Patient with improving course and can probably discharge home tomorrow on oral cephalosporin. Also would benefit from outpatient wound care consultation for help with the chronic venous stasis. Isolation: None VTE prophylaxis: Enoxaparin Diet: Medium constant carbohydrate Code status: FULL. Dispo: Inpatient, anticipate discharge home with home health in the next 24-48 hours with continued improvement in cellulitis. COVID-19 status: Negative Quality VTE Deep Vein Thrombosis/Pulmonary Embolism Present on Admission: No
--- NOTE | 2020-02-11 15:22 | CM.DPNOTE ---
DCP Cont Placed call to January at [facility] this AM; asked about referral and they do not take [employer] M[employer]. Reviewed therapy notes this afternoon and patient has made progress; she is cleared for return home w/HH and family to assist when medically stable and patient is agreeable to this plan. According to VM from [facility] yesterday, they do not accept [employer] M[employer]. Thus placed call yesterday to Everardo at [facility] and gave referral, requested RN/PT/OT/MEDICARE SALES EXECUTIVE/SEARCH MARKETING ANALYST. F/u is expected Thursday if patient is discharged Thursday. Patient remained somnolent throughout the day yesterday and again today, Dr Esqueda and Dr Hooper aware of this SEARCH MARKETING ANALYST's concerns re: alertness , patient slightly more alert today per RN and PT. This SEARCH MARKETING ANALYST unable to reassess needs w/patient this afternoon at bedside, d/t caseload demands. Did not assess patient's response re: safety at home (?) and medication management by spouse (?) This SEARCH MARKETING ANALYST hopeful coordination can be done Thursday between patient, spouse Gene (by phone) and family. P: DC home expected over the next 24-48hrs, w/ [facility] and family to assist, home via private auto LAURIE Linares
[2020-02-11] MEDS: CEFTRIAXONE 2 GM/50 ML FROZ.PIGGY IV (21:17)
[2020-02-11] MEDS: ATORVASTATIN 20 MG TABLET PO (21:17)
[2020-02-11] MEDS: SODIUM CHLORIDE 0.9% FLUSH 10 ML IV (21:18)
[2020-02-11] MEDS: INSULIN GLARGINE 100 UNIT/ML 3ML PEN 35 UNIT SUBCUT (21:21)
[2020-02-12] MEDS: MORPHINE ER 15 MG TABLET PO ×2 (01:16→08:16)
--- NOTE | 2020-02-12 02:00 | PC.NURSE ---
Patient's home med Cevimeline brought in by patient's daughter, given to coordinator to send to pharmacy to ID and dispense.
[2020-02-12 03:00] VITALS: BP 153/63; PULSE 78; RESP 18; TEMP 36.1; O2SAT 95
[2020-02-12 05:59] LABS: Add Manual Diff / Slide Review NO; Basophils Absolute Auto 0 /uL (0-100); Basophils Percent Auto 0.2 % (0-2); Eosinophils Absolute Auto 100 /uL (0-450); Eosinophils Percent Auto 2.5 % (2-4); Hematocrit 34.9 % (36-46); Lymphocytes Absolute Auto 1700 /uL (1100-4500); Lymphocytes Percent Auto 43.9 % (25-40); Mean Corpuscular HGB Conc 34.3 % (30-36); Mean Corpuscular Hemoglobin 28.4 PG (26-34); Mean Corpuscular Volume 82.6 fL (80-100); Monocytes Absolute Auto 300 /uL (0-900); Monocytes Percent Auto 8.3 % (3-14); Neutrophils Absolute Auto 1700 /uL (1500-7000); Neutrophils Percent Auto 45.1 % (50-75); Platelet Count 175 X10^3/uL (150-400); Red Blood Cell Count 4.23 X10^6/uL (4.0-5.2); Red Cell Distribution Width 13.2 % (11.6-14.8); White Blood Cell Count 3.8 X10^3/uL (4.5-11.0)
[2020-02-12] MEDS: PANTOPRAZOLE 20 MG TABLET PO (06:02)
[2020-02-12] MEDS: LEVOTHYROXINE 125 MCG TABLET PO (06:02)
[2020-02-12 06:07] LABS: Alanine Aminotransferase 47 IU/L (<35); Albumin Globulin Ratio 0.9 (1.0-2.8); Alkaline Phosphatase 101 U/L (38-126); Aspartate Aminotransferase 29 IU/L (14-36); Bilirubin Total 0.3 mg/dL (0.2-1.3); Bilirubin Unconjugated 0.3 mg/dL (0.0-1.1); Blood Urea Nitrogen 6 mg/dL (7-17); Calcium 8.4 mg/dL (8.4-10.2); Carbon Dioxide 29 mmol/L (22-32); Chloride 100 mmol/L (98-107); Estimated Glomerular Filt Rate > 60.0 mL/min (>60); Globulin 3.3 g/dL (1.7-4.1); Glucose 153 mg/dL (80-110); HEMOLYSIS < 15 (0-50); Magnesium 1.6 mg/dL (1.6-2.3); Potassium 3.4 mmol/L (3.4-5.1); Sodium 134 mmol/L (137-145); Total Protein 6.3 g/dL (6.3-8.2)
[2020-02-12 07:38] VITALS: BP 157/65; PULSE 59; RESP 20; TEMP 36.3; O2SAT 98
[2020-02-12] MEDS: INSULIN ASPART 100 UNIT/ML INSULN PEN SUBCUT ×2 (08:13→12:46)
[2020-02-12] MEDS: ESCITALOPRAM 10 MG TABLET 40 MG PO (08:14)
[2020-02-12] MEDS: buPROPion XL 150 MG TAB PO (08:14)
[2020-02-12] MEDS: FUROSEMIDE 40 MG TABLET PO (08:14)
[2020-02-12] MEDS: ENOXAPARIN 40 MG/0.4 ML SYRINGE SUBCUT (08:15)
[2020-02-12] MEDS: SODIUM CHLORIDE 0.9% FLUSH 10 ML IV (08:17)
[2020-02-12] MEDS: CYCLOBENZAPRINE 10 MG TABLET PO (09:27)
--- NOTE | 2020-02-12 11:15 | PT.IPTN ---
Current Diagnoses Sepsis, unspecified organism (02/08/20) Physical Therapy Treatment Note M2 PT-IP Current Condition Start: 02/09/20 12:15 Freq: NEEDED Status: Active Protocol: Document 02/10/20 12:03 AB (Rec: 02/10/20 14:26 AB [email or web address]) Physical Therapy Current Condition Current Condition Evaluation Date 02/10/20 Treatment Diagnosis LLE cellulitis; sepsis; difficulty in walking Onset Date 02/08/20 Precautions Other Precautions falls M3 PT-IP Subjective Start: 02/09/20 12:15 Freq: NEEDED Status: Active Protocol: Document 02/12/20 11:15 DLM (Rec: 02/12/20 12:31 DLM [email or web address]) Subjective Physical Therapy Visit Type Type Treatment Note Visit Start Time 11:00 Visit Stop Time 11:15 Total Visit Minutes 15 Number of WOODWORKER Visits 0 Physical Therapy Visit Comments Patient Comments She reports feeling sleepy today due to taking Flexeril. She describes having poor appetite while in hospital but that it typically goes back to normal at home. Patient Goals She is ok going home today. Therapy Pain Assessment Pain When Pain Assessed After Treatment Pain Present Pain Present Pain Reported Location Left Leg Intensity 3 Scale Used Numeric (0 - 10) Description Aching,Chronic Pain Management Techniques Re-positioning M4 PT-IP Mobility and Gait Start: 02/09/20 12:15 Freq: NEEDED Status: Active Protocol: Document 02/12/20 11:15 DLM (Rec: 02/12/20 12:31 DLM [email or web address]) PT-Bed Mobility Assessment Scooting Scooting to Edge of Bed Independent PT-Transfer Assessment Sit to and From Stand Sit to and from Stand Standby Assistance Equipment Transfer Assistive Device Gait Belt,Front Wheeled Walker Orthotic/Prosthetic Devices or Brace: No Transfers Transfer Destination Bed Transfer Technique Stand Step Pivot Transfer Ability Level of Assist Standby Assistance,Use of Upper Extremities Comments Mobility Comments pt up in recliner and wants to stay up Gait Assessment Gait Gait Assistance Required: Standby Assistance Distance (Feet) 25 Assistive Devices Assistive Device Gait Belt,Front Wheeled Walker Gait Deviations General Gait Pattern Flexed Trunk Factors Limiting Gait Function Factors Limiting Gait Function Decreased Activity Tolerance, Pain Comments Gait Comments pt ambulated in room, she declines to ambulate in meneses, she worries about infection PT-Balance Assessment Sitting Balance and Reactions Static Sitting Balance Ability Good Dynamic Sitting Balance Ability Good Standing Balance and Reactions Static Standing Balance Ability Good Dynamic Standing Balance Ability Good Device Used FWW M5 PT-IP Objective Assessments Start: 02/09/20 12:15 Freq: NEEDED Status: Active Protocol: Document 02/10/20 12:03 AB (Rec: 02/10/20 14:26 AB [email or web address]) Orientation Orientation/Cognition Level of Alertness Confusional State Orientation Name Safety Awareness Decreased Safety Awareness Memory Description Short Term Impaired Gross Range of Motion Lower Extremity ROM Assessment Within Functional Limits Strength Lower Extremity Strength Assessment Bilaterally Impaired Hip 4-/5 Knee 4-/5 Muscle Tone Muscle Tone WNL Yes M6 PT-IP Treatment Start: 02/09/20 12:15 Freq: NEEDED Status: Active Protocol: Document 02/12/20 11:15 DLM (Rec: 02/12/20 12:31 DLM [email or web address]) Physical Therapy Treatment Exercises Exercises Ankle Pumps,Seated Knee Flexion/Extension Education Education Provided Safety Other Treatments Other Treatment Performed seated marching, all ex x 10 reps bilaterally M7 PT-IP Assessment and Plan Start: 02/09/20 12:15 Freq: NEEDED Status: Active Protocol: Document 02/12/20 11:15 DLM (Rec: 02/12/20 12:31 DLM [email or web address]) PT Summary Assessment and Plan Summary Impairments Pain,Strength,Balance, Sensation,Bed Mobility, Transfers,Gait,Activity Tolerance Progress Towards Goals Progressing Toward Goals Assessment Summary She describes feeling tired and sleepy. She is alert throughout this visit and participates in conversation. Her Daughter is present at this time. Pt feels she is ready to go home today. She tolerated gait well in her room with FWW. She continues to demonstrate decreased activity tolerance. She appears safe to discharge home with assist from her family. She could benefit from home health to assist with full recovery back to baseline activity tolerance which she describes as active most of the day. Goals Bed Mobility Goal Minimal Assistance Transfer Goal Independent,Front Wheeled Walker Gait Goal Standby Assistance,Front Wheel Walker Gait Distance 50 Days to Meet Goals 10 Frequency of Treatment Frequency Of Treatment Once a Day Treatment Plan Physical Therapy Treatment Plan Bed Mobility Training,Transfer Training,Gait Training, Therapeutic Exercise,Balance Retraining,Discharge Planning, Neuromuscular Re-ed Recommendations To Nursing Amount of Assist Needed 1 Person Assist Discharge Recommendations PT Discharge Recommendations Home with Assistance,Home Health Transportation Needs at Discharge Private Vehicle
--- NOTE | 2020-02-12 12:19 | P.DS_ITS ---
History of Present Illness History of Present Illness Date Patient Seen: 02/10/20 Chief complaint: Leg pain Narrative: Written by Andrea ZAMBRANO: Ms. Alissa Kirby is a 68-year-old female patient with a history type 1 diabetes mellitus, meningioma, atrial flutter, hypertension, hypothyroidism, hyperlipidemia, Sjogren syndrome, GERD, fibromyalgia, venous stasis dermatitis and depression who presents to the emergency department for complaints of fever and worsening cellulitis. The patient reports developing cellulitis of both lower extremities with wounds developing on the left lower leg since May 2019 the patient has had for emergency room visits and has followed up with her primary care provider Dr. Brittany Warner. Over the course of over since 8 months the patient has been treated with Keflex, Augmentin, penicillin, clindamycin and doxycycline with minimal or no improvement. A few days ago the patient was seen by Dr. Warner and had requested to try another course of Bactrim to which the patient has had a previous untoward reaction. The patient states she took 1 tablet of Bactrim he began to feel quite ill with a high fever up to 103.5, orthostatic dizziness, weakness and malaise. The patient's daughter brought her to the ER for evaluation. Prior to today's episode the patient has been at her baseline mentation and function. She has had no other fevers or chills she has had no known COVID-19 exposures has been isolating. She denies falls, trauma, head injury neck or back pain. Denies chest pain or palpitations, shortness of breath cough or wheezing. She has no abdominal pain and denies nausea vomiting. She reports no difficulty with bowel movements or diarrhea and denies urgency, frequency, burning or hematuria. Upon arrival to the ER patient has a temperature 103.2?, tachycardic at 108, hypertensive 160/67, respiratory rate of 22 saturating 96% on room air. No imaging is obtained, laboratory analysis finds a white count of 2.0, hemoglobin 12 5, hematocrit 36.0 and platelets 209. She has mild increase in neutrophils 84.8, lactic acid of 2.2, he has are 31, CRP of 0.6, procalcitonin of 0.3. On electrolytes she has a potassium of 3.8 and magnesium 1.5, BUN of 13 and creatinine 0.52. Her nonfasting glucose is 170. Or liver functions all within normal range and she has a TSH of 0.568. COVID-19 screening is ordered. In the ER the patient received Tylenol for fever, famotidine, Toradol, vancomycin 1 g IV and ceftriaxone 2 g IV, 2 L normal saline and lorazepam for anxiety. The patient is admitted to the medicine service for severe sepsis with bilateral lower extremity cellulitis failing outpatient treatment. Discharge Providers Provider Date of admission: 02/08/20 22:19 Discharge Date: 02/12/20 Primary care physician: Brittany Warner MD Consults: 02/08/20 23:23 Consult to Discharge Planning Routine Comment: 02/09/20 11:30 Consult to INTERNAL SALES ENGINEER - [employer]eder Routine Comment: possible APS, overuse of pain medication 02/09/20 12:08 Consult to Occupational Therapy Evaluate & Treat Comment: Physician Instructions: Evaluate and treat Consult to Physical Therapy Evaluate & Treat Comment: Physician Instructions: Evaluate and Treat 02/10/20 11:36 Consult to Home Health Routine Comment: Reason For Exam: HH Upon DC 02/10/20 21:29 Consult to Pharmacy Urgent Comment: ?Takes gabapentin 1200 qhs, not on list Discharge provider: Lucy Hooper DO Summary Hospital Course Discharge Diagnosis: 1. Severe sepsis, present on admission. Resolved.? 2. Chronic bilateral lower extremity venous stasis with acute cellulitis, present on admission. Resolving. 3. Acute?hypomagnesemia, present on admission. Resolved. 4. Paroxysmal atrial flutter, chronic, present on admission. Stable. 5. Chronic pain with opiate?dependence, present on admission. Stable. 6. Diabetes mellitus type I, chronic, present on admission.? Stable. 7. Hyperlipidemia, chronic, present on admission.? Stable. 8. Hypothyroidism, chronic, present on admission.? Stable. 9. Sjogren's syndrome, chronic, present on admission.? Stable. 10. Gastroesophageal reflux disorder, chronic, present on admission.? Stable. 11. Depression and anxiety, chronic, present on admission.? Stable. Hospital Course: Alissa Kirby is a 68-year-old female patient with a history type 1 diabetes mellitus, meningioma, atrial flutter, hypertension, hypothyroidism, hyperlipidemia,? Sjogren syndrome, GERD, fibromyalgia, venous stasis dermatitis and depression who presented to the emergency department for complaints of fever and worsening cellulitis. She was admitted for sepsis secondary to presumed cellulitis. She has improved with antibiotic therapy and could potentially discharge as early as tomorrow. 1. Severe sepsis, present on admission. Resolved.? -Patient presented with? signs of sepsis with fever, tachycardia, tachypnea, leukopenia, lactic acidosis with end-organ dysfunction hypotension and source bilateral infected?chronic venous stasis cellulitis. -Early goal directed therapy met including: IV resuscitation and broad spectrum IV antibiotics. -Continued to trend lactic acid until under 2.0. 2. Chronic bilateral lower extremity venous stasis with acute cellulitis, prese nt on admission. Resolving. -Patient has been treated on an outpatient basis with Keflex, Augmentin, clindamycin, doxycycline, Bactrim and penicillin since May of 2019 without significant improvement.? No evidence of C. difficile colitis following multiple antibiotic exposures. -Patient presented with bilateral lower extremity erythema, warmth and tenderness with cellulitis superimposed on chronic venous stasis dermatitis and dry crusted wound on the left anterior lower leg. Warmth has continued to improve as has the redness on IV antibiotic therapy. -Received in ED and continue ceftriaxone 2 g IV daily and vancomycin with dosing per pharmacist. Discontinued vancomycin on 02/09 given negative cultures. Discharged on Keflex 500 mg twice daily for 6 additional days to complete 10 days total of antibiotic therapy. Recommend outpatient follow-up with vascular surgery as patient may need revascularization and or venous radioablation. 3. Acute?hypomagnesemia, present on admission. Resolved. -Initial magnesium 1.5. Received?magnesium sulfate 2 g IV x 1. Magnesium now 2.2. -Continue to monitor and replete as necessary. Goal Mg > 2.0. 4. Paroxysmal atrial flutter, chronic, present on admission. Stable. -Patient is currently in sinus rhythm. -Continued to monitor electrolytes and replete if necessary. Goal K > 4.0 and Mg > 2.0. -Patient is not on rate control medication or anticoagulation. -[id number] score is 4 (age, gender, hypertension, and diabetes) indicative of high risk of VTE and patient should consider anticoagulation and discuss this with PCP. 5. Chronic pain with opiate?dependence, present on admission. Stable. -Patient with a history of fibromyalgia and chronic back pain with spinal stenosis. -Patient's had to be removed from hospital as he was giving the patient her home narcotics in addition to the narcotics dispense by the hospital. Concerned that patient is taking controlled, high risk narcotics other than how they are prescribed. INTERNAL SALES ENGINEER consulted and we appreciate her time and recommendations. -Continued home pain regimen with medications dispensed appropriately with morphine ER 15 mg every 8 hours and hydrocodone 5-325 mg three times daily as needed for breakthrough pain. Continued muscle relaxant but changed medication frequency of cyclobenzaprine 10 mg from 3 times daily to daily at bedtime as patient reports this is the only time she takes this medication as it causes drowsiness and sedation. Patient is followed by Nelida Henriquez [facility] family medicine with subspecialty in pain management and recommended close follow-up and titration down on high risk narcotics due to potential for adverse outcome. 6. Diabetes mellitus type I, chronic, present on admission.? Stable. -Hemoglobin A1c 9.0% indicative of suboptimal control.?Patient with highly rani iable blood sugars and non-noncompliance with diet. No evidence of nephropathy, retinopathy or neuropathy, however, she does have fibromyalgia. -Continued home Lantus increased from 30 units?to 35 units daily at bedtime and nutritional insulin 4-6 units three times daily with meals. -Continued [facility] blood glucose checks and medium-dose correctional scale insulin. 7. Hyperlipidemia, chronic, present on admission.? Stable. -Continued home atorvastatin 20 mg daily. 8. Hypothyroidism, chronic, present on admission.? Stable. -TSH normal at?0.568. -Continued home levothyroxine 125 mcg daily. 9. Sjogren's syndrome, chronic, present on admission.? Stable. -Continued home cevimeline 30 mg three times daily to increase salivation. 10. Gastroesophageal reflux disorder, chronic, present on admission.? Stable. -Continued home protonix 20 mg daily. 11. Depression and anxiety, chronic, present on admission.? Stable. -Continued home bupropion 150 mg extended release daily and escitalopram 40 mg daily. -Discontinued alprazolam 0.5 mg daily as needed for anxiety as this is a high- risk medication in combination with narcotics as above and patient would like to stop this medication as she reports that she only takes it a couple times a week and has received 1 dose during this hospitalization. Exam Vital Signs (past 8 hours): - 02/12/20 07:38 Temperature 97.3 F L Pulse Rate 59 L Respiratory Rate 20 Blood Pressure 157/65 H Pulse Oximetry 98 Oxygen Delivery Method Room Air Oxygen Flow Rate 0 Narrative Exam Narrative: General: Older female sitting in bedside chair and in no acute distress, appear s older than stated age, well-developed, well-nourished, depressed mood and affect otherwise appropriately interactive. HEENT: Normocephalic, atraumatic. External ears without defect. Pupils equal, ro und, and reactive to light. Anicteric sclerae, moist conjunctivae, and no lid lag. Oropharynx free of erythema and cobble stoning with moist mucosa. Neck: Supple with full range of motion. No jugular venous distension. No bruits. No lymphadenopathy or thyromegaly. Cardiovascular: Regular rate and rhythm without murmurs, rubs, or gallops appreciated Pulmonary: Clear to auscultation bilaterally without crackles, wheezes, or rhonchi. Normal respiratory effort with no use of accessory muscles. Abdomen: Soft, bowel sounds present, nontender, nondistended. No hepatosplenomegaly or masses appreciated. Extremities: No clubbing or cyanosis. Right lower extremity with slight erythema on medial aspect of leg and left lower extremity with stasis dermatitis and superimposed cellulitis that is resolving with eschar over venous stasis ulcers on anterior aspect of leg. Skin: Normal temperature, turgor, and texture; no rash, ulcers, or subcutaneous nodules appreciated. Neurological: Cranial nerves grossly intact. Psychiatric: Depressed mood and affect. Alert and oriented to person, place, and time. Poor insight. Objective Labs Result Diagrams: 02/12/20 05:11 02/12/20 05:11 Labs: Laboratory Results - last 24 hr 02/12/20 02/12/20 05:11 05:11 WBC 3.8 L RBC 4.23 Hgb 12.0 Hct 34.9 L MCV 82.6 MCH 28.4 MCHC 34.3 RDW 13.2 Plt Count 175 Neut % (Auto) 45.1 L Lymph % (Auto) 43.9 H [place] % (Auto) 8.3 Eos % (Auto) 2.5 Baso % (Auto) 0.2 Neut # (Auto) 1700 Lymph # (Auto) 1700 [place] # (Auto) 300 Eos # (Auto) 100 Baso # (Auto) 0 Sodium 134 L Potassium 3.4 Chloride 100 Carbon Dioxide 29 BUN 6 L Creatinine 0.40 L Estimated GFR > 60.0 BUN/Creatinine Ratio 15.0 Glucose 153 H Calcium 8.4 Magnesium 1.6 Total Bilirubin 0.3 Conjugated Bilirubin 0.0 Unconjugated Bilirubin 0.3 AST 29 ALT 47 H Alkaline Phosphatase 101 Total Protein 6.3 Albumin 3.0 L Globulin 3.3 Albumin/Globulin Ratio 0.9 L Discharge Plan Discharge Plan Patient Disposition: Home Health Service Discharge comment: You are being discharged home with home health for nursing and physical and occupational therapy. You had cellulitis or infection of your left lower extremity due to chronic venous stasis. You have been prescribed Keflex 500 mg twice daily for 6 additional days to complete 10 day total course of antibiotics. Please continue to elevate your legs when you are not up and m oving. Please follow-up with your primary care physician, Dr. Warner, next 1 week regarding your hospitalization. Recommend you follow-up with your pain specialist Nelida ZAMBRANO regarding your narcotics including MS Contin and hydrocodone and potentially titrating down on these medications. These are high risk medications and carry 4 times the risk of all cause mortality. Do not use these medications in combination with cyclobenzaprine or alprazolam as they lower your risk of respiratory depression and . Please be sure to take your medication list with you to all appointments. Recommend follow-up with vascular surgeon regarding your venous stasis of the left lower extremity for vascular studies and to ensure that you do not need any revascularization. Discharge orders & Medications Prescriptions: New cephalexin [Keflex] 500 mg capsule 500 mg PO BID Qty: 12 RF: 0 Continued omeprazole 20 mg Capsule,Delayed Release(Dr/Ec) 20 mg PO DAILY Qty: 0 RF: 0 escitalopram oxalate [Lexapro] 20 mg Tablet 40 mg PO DAILY Qty: 0 RF: 0 cevimeline 30 mg Capsule 30 mg PO TID RF: 0 lisinopril 2.5 mg Tablet 2.5 mg PO DAILY RF: 0 insulin aspart U-100 [Novolog Flexpen U-100 Insulin] 100 unit/mL Insulin Pen 4 - 6 unit SUBCUT AC RF: 0 hydrocodone-acetaminophen 5-325 mg Tablet 1 tab PO TID Qty: 0 RF: 0 Lantus Solostar U-100 Insulin 100 unit/mL (3 mL) insulin pen 30 unit SUBCUT BEDTIME RF: 0 atorvastatin 20 mg Tablet 20 mg PO DAILY RF: 0 morphine [MS Contin] 15 mg tablet extended release 15 mg PO Q8H Qty: 30 RF: 0 ondansetron 4 mg tablet,disintegrating 4 mg PO Q6H PRN (Reason: nausea and vomiting) Qty: 20 RF: 0 furosemide 40 mg Tablet 40 mg PO DAILY RF: 0 potassium chloride 10 mEq Capsule, Extended Release 10 meq PO DAILY RF: 0 bupropion HCl 150 mg Tablet Extended Release 24 Hr 150 mg PO QAM RF: 0 levothyroxine 125 mcg capsule 125 mcg PO DAILY Qty: 30 RF: 0 Changed cyclobenzaprine 10 mg tablet 10 mg PO BEDTIME Qty: 10 RF: 0 Discontinued alprazolam 0.5 mg tablet 0.5 mg PO BEDTIME Qty: 0 RF: 0 Follow up/Referrals: Brittany Warner MD [Primary Care Provider] - 1 Week Diet/Activity/Treatments Diet: Low-fat, Low-sodium and Low-cholesterol Visit Report/Discharge Packet Instructions: DI for Edema Due to Venous Stasis, How To Perform RICE (Rest, Ice, Compress, Elevate), Morphine, Venous Stasis Ulcer, Cephalexin (By mouth), Hydrocodone/Acetaminophen (By mouth), Cyclobenzaprine (By mouth) Visit Report Forms: Patient Portal/API, Stroke Signs & Symptoms Discharge Data Primary Care Provider: Brittany Warenr Discharges patient from system. Discharge Date/Time: 02/12/20 14:09 Quality VTE Deep Vein Thrombosis/Pulmonary Embolism Present on Admission: No
--- NOTE | 2020-02-12 13:07 | PC.NURSE ---
Patient and her daughter have been arguing a good portion of this shift. She is now discharged. Her lower extremity is rough with excoriation and leathery skin. PP is weaker on affected leg. Given flexaril for pain and patient became sleepy but totally a&ox3. She is being discharged from the hospital in a bit.
--- NOTE | 2020-02-12 14:35 | CM.DPC ---
DCP/continued: Reviewed BILINGUAL HR GENERALIST note from current stay. Current d/c plan is for patient to d/c home with family and Home Health through [facility]. Per provider, patient medically stable for d/c today. BILINGUAL HR GENERALIST and provider met with patient and daughter/Anny at bedside. Patient alert and oriented x3 today. Provider discussed with patient current status re: opiate dependence. Patient reports that prescriber has lessened her dosing of narcotics. Patient educated by provider on dangers of taking both opiates and benzos together. Patient does get prescription for benzos (Dr. Poon)? from another provider. Patient reports that she takes a very small amount of benzos and does not feel that she will need them or withdrawal from them. Patient reports that she did ask her spouse/Gurpreet to bring in her home narcotics a few days ago. Patient acknowledges that this was the wrong thing to do. Per daughter, spouse very codependent with patient. Daughter wishes to be more involved but patient will not let her. Patient confirms that she does not want her daughter involved in taking her to/from appointments or in my business. At present, patient alert and oriented and understands danger(s) of not taking prescription medication as prescribed. BILINGUAL HR GENERALIST agrees with previous BILINGUAL HR GENERALIST in regards to [facility] referral. Not needed at this time. Patient denies physical, verbal an/or exploitation of vulnerable adult at this time. Left message with [facility] re:d/c today. Received return message indicating that they have received referral and have accepted. D/C summary to be faxed to [facility] when available. No additional CM needs identified. P: Home today. Spouse to provide transport. Patient in agreement with d/c plan and PRINCESS initialed by BILINGUAL HR GENERALIST. LAURIE Castanon
--- NOTE | 2020-02-13 12:24 | CM.DPC ---
DCP cont: Faxed discharge summary to [facility] at fax # [phone]. Fax confirmation scanned in. Shaila Anthony, Care Work Environment Safety Inspector
== END 2020-02-12 14:09 | disposition home health service (06) | DRG 872 ==
LOC: ED 22:11 → AC 22:19
PROVIDERS: Internal Medicine; Admitting Provider Nurse Practitioner Adult Health; Emergency Provider Emergency Medicine; Family Provider Internal Medicine; PCP Internal Medicine; Referring Provider Emergency Medicine; Visit Provider Nurse Practitioner Adult Health
DX: A41.9 Sepsis, unspecified organism (principal); L03.116 Cellulitis of left lower limb; L03.115 Cellulitis of right lower limb; I48.92 Unspecified atrial flutter; R65.20 Severe sepsis without septic shock; E83.42 Hypomagnesemia; E10.9 Type 1 diabetes mellitus without complications; I10 Essential (primary) hypertension; E03.9 Hypothyroidism, unspecified; E78.5 Hyperlipidemia, unspecified; M35.00 Sjogren syndrome, unspecified; K21.9 Gastro-esophageal reflux disease without esophagitis; M79.7 Fibromyalgia; F32.9 Major depressive disorder, single episode, unspecified; I87.8 Other specified disorders of veins; G89.29 Other chronic pain; F17.210 Nicotine dependence, cigarettes, uncomplicated; Z79.4 Long term (current) use of insulin
CPT/HCPCS: 36415; 51798; 71045; 80048; 80053; 80076; 80202; 82962; 83036; 83605; 83690; 83735; 84100; 84145; 84443; 85025; 85651; 86140; 87040; 87635; 93005; 96361; 96365; 96375; 97116; 97162; 97165; 97530; 97535; 99285; J0696; J1650; J1885; J2060

== ENCOUNTER → 2020-03-14 14:54 | Outpatient (CLI) | payer OTHER, SELFPAY ==
[2020-02-09 02:10] VITALS: BMI 28.6
== END ==
PROVIDERS: Family Provider Internal Medicine; PCP Internal Medicine; Referring Provider Internal Medicine; Visit Provider Family Medicine
DX: I87.312 Chronic venous hypertension (idiopathic) with ulcer of left lower extremity (principal); L97.821 Non-pressure chronic ulcer of other part of left lower leg limited to breakdown of skin; M35.00 Sjogren syndrome, unspecified; E10.622 Type 1 diabetes mellitus with other skin ulcer; L08.9 Local infection of the skin and subcutaneous tissue, unspecified
CPT/HCPCS: 11042; 87070; 87075; 87077; 87205; 99213; 99214

== ENCOUNTER → 2020-03-21 14:13 | Outpatient (CLI) | payer OTHER, SELFPAY ==
[2020-02-09 02:10] VITALS: BMI 28.6
== END ==
PROVIDERS: Family Provider Internal Medicine; PCP Internal Medicine; Referring Provider Internal Medicine; Visit Provider Family Medicine
DX: I87.312 Chronic venous hypertension (idiopathic) with ulcer of left lower extremity (principal); L97.821 Non-pressure chronic ulcer of other part of left lower leg limited to breakdown of skin; M35.00 Sjogren syndrome, unspecified; E10.622 Type 1 diabetes mellitus with other skin ulcer
CPT/HCPCS: 97597

== ENCOUNTER → 2020-03-28 14:52 | Outpatient (CLI) | payer OTHER, SELFPAY ==
[2020-02-09 02:10] VITALS: BMI 28.6
== END ==
PROVIDERS: Family Provider Internal Medicine; PCP Internal Medicine; Referring Provider Internal Medicine; Visit Provider Family Medicine
DX: I87.312 Chronic venous hypertension (idiopathic) with ulcer of left lower extremity (principal); L97.821 Non-pressure chronic ulcer of other part of left lower leg limited to breakdown of skin; M35.00 Sjogren syndrome, unspecified; E10.622 Type 1 diabetes mellitus with other skin ulcer; L08.9 Local infection of the skin and subcutaneous tissue, unspecified
CPT/HCPCS: 87070; 87075; 87077; 87186; 87205; 97597; 99214

== ENCOUNTER → 2020-04-03 13:15 | Outpatient (CLI) | payer OTHER, SELFPAY ==
[2020-02-09 02:10] VITALS: BMI 28.6
== END ==
PROVIDERS: Family Provider Internal Medicine; PCP Internal Medicine; Referring Provider Internal Medicine; Visit Provider Family Medicine
DX: I87.2 Venous insufficiency (chronic) (peripheral) (principal); L97.821 Non-pressure chronic ulcer of other part of left lower leg limited to breakdown of skin
CPT/HCPCS: 29581

== ENCOUNTER → 2020-04-05 13:50 | Outpatient (CLI) | payer OTHER, SELFPAY ==
[2020-02-09 02:10] VITALS: BMI 28.6
== END ==
PROVIDERS: Family Provider Internal Medicine; PCP Internal Medicine; Referring Provider Internal Medicine; Visit Provider Family Medicine
DX: I87.312 Chronic venous hypertension (idiopathic) with ulcer of left lower extremity (principal); L97.821 Non-pressure chronic ulcer of other part of left lower leg limited to breakdown of skin; M35.00 Sjogren syndrome, unspecified; E10.622 Type 1 diabetes mellitus with other skin ulcer; L08.9 Local infection of the skin and subcutaneous tissue, unspecified; B95.7 Other staphylococcus as the cause of diseases classified elsewhere; Z79.2 Long term (current) use of antibiotics
CPT/HCPCS: 93922; 97597; 99213

== ENCOUNTER → 2020-04-12 15:39 | Outpatient (CLI) | payer OTHER, SELFPAY ==
[2020-02-09 02:10] VITALS: BMI 28.6
== END ==
PROVIDERS: Family Provider Internal Medicine; PCP Internal Medicine; Referring Provider Internal Medicine; Visit Provider Family Medicine
DX: I87.312 Chronic venous hypertension (idiopathic) with ulcer of left lower extremity (principal); R60.0 Localized edema; Z79.2 Long term (current) use of antibiotics
CPT/HCPCS: 99212; 99213

== ENCOUNTER → 2020-05-03 14:08 | Outpatient (CLI) | payer OTHER, SELFPAY ==
[2020-02-09 02:10] VITALS: BMI 28.6
== END ==
PROVIDERS: Family Provider Internal Medicine; PCP Internal Medicine; Referring Provider Internal Medicine; Visit Provider Family Medicine
DX: I87.312 Chronic venous hypertension (idiopathic) with ulcer of left lower extremity (principal); L97.821 Non-pressure chronic ulcer of other part of left lower leg limited to breakdown of skin; R60.0 Localized edema; L08.9 Local infection of the skin and subcutaneous tissue, unspecified
CPT/HCPCS: 11042; 87070; 87075; 87077; 87147; 87186; 87205; 99214

== ENCOUNTER → 2020-05-10 14:32 | Outpatient (CLI) | payer OTHER, SELFPAY ==
[2020-02-09 02:10] VITALS: BMI 28.6
== END ==
PROVIDERS: Family Provider Internal Medicine; PCP Internal Medicine; Referring Provider Internal Medicine; Visit Provider Family Medicine
DX: I87.2 Venous insufficiency (chronic) (peripheral) (principal); L97.821 Non-pressure chronic ulcer of other part of left lower leg limited to breakdown of skin
CPT/HCPCS: 29581

== ENCOUNTER → 2020-05-17 15:12 | Outpatient (CLI) | payer OTHER, SELFPAY ==
[2020-02-09 02:10] VITALS: BMI 28.6
== END ==
PROVIDERS: Family Provider Internal Medicine; PCP Internal Medicine; Referring Provider Internal Medicine; Visit Provider Family Medicine
DX: I87.2 Venous insufficiency (chronic) (peripheral) (principal); L97.821 Non-pressure chronic ulcer of other part of left lower leg limited to breakdown of skin
CPT/HCPCS: 29581

== ENCOUNTER → 2020-05-24 15:45 | Outpatient (CLI) | payer OTHER, SELFPAY ==
[2020-02-09 02:10] VITALS: BMI 28.6
== END ==
PROVIDERS: Family Provider Internal Medicine; PCP Internal Medicine; Referring Provider Internal Medicine; Visit Provider Family Medicine
DX: I87.312 Chronic venous hypertension (idiopathic) with ulcer of left lower extremity (principal); L97.821 Non-pressure chronic ulcer of other part of left lower leg limited to breakdown of skin; R60.0 Localized edema
CPT/HCPCS: 11042

== ENCOUNTER → 2020-05-31 15:46 | Outpatient (CLI) | payer OTHER, SELFPAY ==
[2020-02-09 02:10] VITALS: BMI 28.6
== END ==
PROVIDERS: Family Provider Internal Medicine; PCP Internal Medicine; Referring Provider Internal Medicine; Visit Provider Family Medicine
DX: I87.2 Venous insufficiency (chronic) (peripheral) (principal); L97.821 Non-pressure chronic ulcer of other part of left lower leg limited to breakdown of skin
CPT/HCPCS: 29580

== ENCOUNTER → 2020-06-07 15:35 | Outpatient (CLI) | payer OTHER, SELFPAY ==
[2020-02-09 02:10] VITALS: BMI 28.6
== END ==
PROVIDERS: Family Provider Internal Medicine; PCP Internal Medicine; Referring Provider Internal Medicine; Visit Provider Family Medicine
DX: I87.312 Chronic venous hypertension (idiopathic) with ulcer of left lower extremity (principal); L97.821 Non-pressure chronic ulcer of other part of left lower leg limited to breakdown of skin; R60.0 Localized edema
CPT/HCPCS: 29580; 99213

== ENCOUNTER → 2020-06-14 14:18 | Outpatient (CLI) | payer OTHER, SELFPAY ==
[2020-02-09 02:10] VITALS: BMI 28.6
== END ==
PROVIDERS: Family Provider Internal Medicine; PCP Internal Medicine; Referring Provider Internal Medicine; Visit Provider Family Medicine
DX: I87.312 Chronic venous hypertension (idiopathic) with ulcer of left lower extremity (principal); L97.821 Non-pressure chronic ulcer of other part of left lower leg limited to breakdown of skin; R60.0 Localized edema
CPT/HCPCS: 11042

== ENCOUNTER → 2020-06-21 15:13 | Outpatient (CLI) | payer OTHER, SELFPAY ==
[2020-02-09 02:10] VITALS: BMI 28.6
== END ==
PROVIDERS: Family Provider Internal Medicine; PCP Internal Medicine; Referring Provider Internal Medicine; Visit Provider Family Medicine
DX: I87.312 Chronic venous hypertension (idiopathic) with ulcer of left lower extremity (principal); L97.821 Non-pressure chronic ulcer of other part of left lower leg limited to breakdown of skin; R60.0 Localized edema
CPT/HCPCS: 29581; 99213

== ENCOUNTER → 2020-06-28 16:18 | Outpatient (CLI) | payer OTHER, SELFPAY ==
[2020-02-09 02:10] VITALS: BMI 28.6
== END ==
PROVIDERS: Family Provider Internal Medicine; PCP Internal Medicine; Referring Provider Internal Medicine; Visit Provider Family Medicine
DX: I87.312 Chronic venous hypertension (idiopathic) with ulcer of left lower extremity (principal); L97.821 Non-pressure chronic ulcer of other part of left lower leg limited to breakdown of skin; R60.0 Localized edema
CPT/HCPCS: 97597; 99213

== ENCOUNTER → 2020-06-29 19:48 | Outpatient (ROUT) | payer OTHER, SELFPAY ==
[2020-02-09 02:10] VITALS: BMI 28.6
[2020-06-29 20:06] LABS: UR Morphine/Opiate cutoff 300 Positive (Negative); Ur Creatinine Normal (Normal); Ur Specific Gravity Normal (Normal); Urine Amphetamines Positive (Negative); Urine Barbiturates Negative (Negative); Urine Benzodiazepines Negative (Negative); Urine Cocaine Negative (Negative); Urine MDMA Negative (Negative); Urine Methadone Negative (Negative); Urine Methamphetamines Negative (Negative); Urine Oxycodone Negative (Negative); Urine Phencyclidine Negative (Negative); Urine Tetrahydrocannabinol Negative (Negative); Urine Tricyclic Antidepressant Positive (Negative); Urine pH Normal (Normal)
[2020-06-29 20:07] LABS: Alanine Aminotransferase 14 IU/L (<35); Albumin 3.6 g/dL (3.5-5.0); Albumin Globulin Ratio 1.1 (1.0-2.8); Alkaline Phosphatase 56 U/L (38-126); Aspartate Aminotransferase 19 IU/L (14-36); BUN Creatinine Ratio 26.3 (6-22); Bilirubin Total 0.3 mg/dL (0.2-1.3); Blood Urea Nitrogen 15 mg/dL (7-17); Carbon Dioxide 38 mmol/L (22-32); Chloride 98 mmol/L (98-107); Cholesterol 133 mg/dL (140-199); Estimated Glomerular Filt Rate > 60.0 mL/min (>60); Globulin 3.4 g/dL (1.7-4.1); Glucose 274 mg/dL (80-110); HDL Cholesterol 43 mg/dL (40-60); HEMOLYSIS < 15 (0-50); LDL Cholesterol Calculated 60 mg/dL (<100); Magnesium 1.9 mg/dL (1.6-2.3); Potassium 4.1 mmol/L (3.4-5.1); Sodium 136 mmol/L (137-145); Triglycerides 150 mg/dL (35-150)
[2020-06-29 20:09] LABS: Hemoglobin A1C% w Est Avg Glu 8.9 % (4.0-6.0)
[2020-06-29 20:10] LABS: Add Manual Diff / Slide Review NO; Basophils Absolute Auto 0 /uL (0-100); Basophils Percent Auto 0.1 % (0-2); Eosinophils Absolute Auto 500 /uL (0-450); Eosinophils Percent Auto 9.1 % (2-4); Hematocrit 37.6 % (36-46); Hemoglobin 12.7 g/dL (12.0-16.0); Lymphocytes Absolute Auto 2600 /uL (1100-4500); Lymphocytes Percent Auto 47.9 % (25-40); Mean Corpuscular HGB Conc 33.8 % (30-36); Mean Corpuscular Hemoglobin 28.8 PG (26-34); Mean Corpuscular Volume 85.1 fL (80-100); Monocytes Absolute Auto 500 /uL (0-900); Monocytes Percent Auto 9.2 % (3-14); Neutrophils Absolute Auto 1800 /uL (1500-7000); Neutrophils Percent Auto 33.7 % (50-75); Platelet Count 204 X10^3/uL (150-400); Red Blood Cell Count 4.43 X10^6/uL (4.0-5.2); Red Cell Distribution Width 13.8 % (11.6-14.8); White Blood Cell Count 5.4 X10^3/uL (4.5-11.0)
[2020-06-29 20:31] LABS: Creatinine Urine Random 78.4 mg/dL
[2020-06-29 20:36] LABS: Microalbumin Urine Random 1.1 mg/dL (0-1.6)
[2020-06-29 20:37] LABS: TSH w/ Reflex to FT4 0.21 uIU/mL (0.47-4.68)
[2020-06-29 21:16] LABS: Free T4, Direct Thyroxine 1.62 ng/dL (0.78-2.19)
== END ==
PROVIDERS: Family Provider Internal Medicine; PCP Internal Medicine; Visit Provider Internal Medicine
DX: G89.4 Chronic pain syndrome (principal); E10.9 Type 1 diabetes mellitus without complications; E83.42 Hypomagnesemia; G47.33 Obstructive sleep apnea (adult) (pediatric); I48.0 Paroxysmal atrial fibrillation; E78.2 Mixed hyperlipidemia; E03.9 Hypothyroidism, unspecified
CPT/HCPCS: 80053; 80061; 80305; 82043; 82570; 83036; 83735; 84439; 84443; 85025

== ENCOUNTER → 2020-07-05 14:39 | Outpatient (CLI) | payer OTHER, SELFPAY ==
[2020-02-09 02:10] VITALS: BMI 28.6
== END ==
PROVIDERS: Family Provider Internal Medicine; PCP Internal Medicine; Referring Provider Internal Medicine; Visit Provider Family Medicine
DX: R60.0 Localized edema (principal); I87.2 Venous insufficiency (chronic) (peripheral)
CPT/HCPCS: 29581

== ENCOUNTER → 2020-08-15 16:30 | Outpatient (CLI) | payer OTHER, SELFPAY ==
[2020-02-09 02:10] VITALS: BMI 28.6
--- NOTE | 2020-08-15 16:38 | DI.RAD.S_ITS ---
PROCEDURE: XR KNEE STANDING BI INDICATIONS: PAIN IN LEFT KNEE TECHNIQUE: Single views of the left knee, and single views of the right knee. COMPARISON: [facility], CR, XR KNEE LT 1TO2V, 08/15/2020, 16:43. [facility], CR, XR KNEE RT 3V, 02/04/2019, 16:03. FINDINGS: No acute fractures or dislocations. No focal osseous destruction. On the right, scattered degenerative subchondral sclerosis and spurring. Severe narrowing of the medial joint space. On the left, scattered degenerative subchondral sclerosis and spurring. 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 Dictated by: Matteo Anders M.D. on 08/16/2020 at 8:56 Approved by: Matteo Anders M.D. on 08/16/2020 at 8:58
--- NOTE | 2020-08-15 16:38 | DI.RAD.S_ITS ---
PROCEDURE: XR CHEST 2V INDICATIONS: BRONCHITIS TECHNIQUE: 2 views of the chest were acquired. COMPARISON: [facility], CR, XR CHEST 1V, 02/09/2020, 9:59. FINDINGS: Surgical changes and devices: None. Lungs and pleura: Scattered subsegmental scarring and/or atelectasis. No acute consolidation. No pleural effusions or pneumothorax. Mediastinum: Mediastinal contours are normal. Heart size is normal. Bones and chest wall: No suspicious bony abnormalities. Soft tissues appear unremarkable. IMPRESSION: No acute disease. Dictated by: Matteo Anders M.D. on 08/16/2020 at 9:42 Approved by: Matteo Anders M.D. on 08/16/2020 at 9:42
--- NOTE | 2020-08-15 16:38 | DI.RAD.S_ITS ---
PROCEDURE: XR KNEE LT 1TO2V INDICATIONS: PAIN IN LEFT KNEE TECHNIQUE: 2 views of the knee were acquired. COMPARISON: , CR, XR KNEE RT 3V, 02/04/2019, 16:03. FINDINGS: Bones: No fractures or dislocations. No suspicious bony lesions. Spurring at the superior pole the patella. Marginal lucencies seen at the lateral aspect of the patellofemoral compartment, technically nonspecific. Soft tissues: Small joint effusion IMPRESSION: Small joint effusion and chronic degenerative changes. No fracture. If the patient's pain or other symptoms persist, consider further evaluation with MRI Dictated by: Matteo Anders M.D. on 08/16/2020 at 9:27 Approved by: Matteo Anders M.D. on 08/16/2020 at 9:28
== END ==
PROVIDERS: Family Provider Internal Medicine; PCP Internal Medicine; Referring Provider Internal Medicine; Visit Provider Internal Medicine
DX: J40 Bronchitis, not specified as acute or chronic (principal); M17.0 Bilateral primary osteoarthritis of knee; M25.461 Effusion, right knee
CPT/HCPCS: 71046; 73560; 73565

== ENCOUNTER → 2020-09-06 13:08 | Outpatient (CLI) | payer OTHER, SELFPAY ==
[2020-02-09 02:10] VITALS: BMI 28.6
== END ==
PROVIDERS: Family Provider Internal Medicine; PCP Internal Medicine; Referring Provider Internal Medicine; Visit Provider Family Medicine
DX: I87.2 Venous insufficiency (chronic) (peripheral) (principal); R21 Rash and other nonspecific skin eruption; L29.8 Other pruritus; E10.628 Type 1 diabetes mellitus with other skin complications; R60.0 Localized edema
CPT/HCPCS: 99213; 99214

== ENCOUNTER → 2020-09-20 15:32 | Outpatient (CLI) | payer OTHER, SELFPAY ==
[2020-02-09 02:10] VITALS: BMI 28.6
== END ==
PROVIDERS: Family Provider Internal Medicine; PCP Internal Medicine; Referring Provider Internal Medicine; Visit Provider Family Medicine
DX: I87.2 Venous insufficiency (chronic) (peripheral) (principal); E10.622 Type 1 diabetes mellitus with other skin ulcer; R21 Rash and other nonspecific skin eruption
CPT/HCPCS: 99212; 99213

== ENCOUNTER → 2020-10-23 13:35 | Outpatient (CLI) | payer OTHER, SELFPAY ==
[2020-02-09 02:10] VITALS: BMI 28.6
== END ==
PROVIDERS: Family Provider Internal Medicine; PCP Internal Medicine; Referring Provider Internal Medicine; Visit Provider Family Medicine
DX: I87.2 Venous insufficiency (chronic) (peripheral) (principal); L97.821 Non-pressure chronic ulcer of other part of left lower leg limited to breakdown of skin; E10.622 Type 1 diabetes mellitus with other skin ulcer; R60.0 Localized edema; L08.9 Local infection of the skin and subcutaneous tissue, unspecified; I10 Essential (primary) hypertension; F17.200 Nicotine dependence, unspecified, uncomplicated
CPT/HCPCS: 97597; 99213; 99214

== ENCOUNTER → 2020-10-30 15:14 | Outpatient (CLI) | payer OTHER, SELFPAY ==
[2020-02-09 02:10] VITALS: BMI 28.6
== END ==
PROVIDERS: Family Provider Internal Medicine; PCP Internal Medicine; Referring Provider Internal Medicine; Visit Provider Family Medicine
DX: I87.2 Venous insufficiency (chronic) (peripheral) (principal); E10.622 Type 1 diabetes mellitus with other skin ulcer; R60.0 Localized edema
CPT/HCPCS: 99212; 99213

== ENCOUNTER → 2020-11-16 14:39 | Outpatient (CLI) | payer OTHER, SELFPAY ==
[2020-02-09 02:10] VITALS: BMI 28.6
== END ==
PROVIDERS: Family Provider Internal Medicine; PCP Internal Medicine; Referring Provider Internal Medicine; Visit Provider Family Medicine
DX: I87.2 Venous insufficiency (chronic) (peripheral) (principal); L03.116 Cellulitis of left lower limb; E10.622 Type 1 diabetes mellitus with other skin ulcer
CPT/HCPCS: 99213

== ENCOUNTER → 2020-11-23 15:10 | Outpatient (CLI) | payer OTHER, SELFPAY ==
[2020-02-09 02:10] VITALS: BMI 28.6
== END ==
PROVIDERS: Family Provider Internal Medicine; PCP Internal Medicine; Referring Provider Internal Medicine; Visit Provider Nurse Practitioner Family
DX: I87.2 Venous insufficiency (chronic) (peripheral) (principal); E78.5 Hyperlipidemia, unspecified; E03.9 Hypothyroidism, unspecified; D64.9 Anemia, unspecified; E10.9 Type 1 diabetes mellitus without complications; L97.821 Non-pressure chronic ulcer of other part of left lower leg limited to breakdown of skin; E10.622 Type 1 diabetes mellitus with other skin ulcer; F17.200 Nicotine dependence, unspecified, uncomplicated; R60.0 Localized edema
CPT/HCPCS: 29581; 36415; 80053; 80061; 82728; 83036; 83540; 83550; 84443; 85025

== ENCOUNTER → 2020-11-23 15:26 | Outpatient (CLI) | payer OTHER, SELFPAY ==
[2020-02-09 02:10] VITALS: BMI 28.6
[2020-11-23 17:28] LABS: Add Manual Diff / Slide Review NO; Basophils Absolute Auto 0 /uL (0-100); Basophils Percent Auto 0.1 % (0-2); Eosinophils Absolute Auto 500 /uL (0-450); Eosinophils Percent Auto 10.1 % (2-4); Hematocrit 38.1 % (36-46); Lymphocytes Absolute Auto 2600 /uL (1100-4500); Lymphocytes Percent Auto 49.6 % (25-40); Mean Corpuscular HGB Conc 34.1 % (30-36); Mean Corpuscular Hemoglobin 29.1 PG (26-34); Mean Corpuscular Volume 85.2 fL (80-100); Monocytes Absolute Auto 400 /uL (0-900); Monocytes Percent Auto 8.4 % (3-14); Neutrophils Absolute Auto 1700 /uL (1500-7000); Neutrophils Percent Auto 31.8 % (50-75); Platelet Count 199 X10^3/uL (150-400); Red Blood Cell Count 4.48 X10^6/uL (4.0-5.2); Red Cell Distribution Width 13.3 % (11.6-14.8); White Blood Cell Count 5.2 X10^3/uL (4.5-11.0)
[2020-11-23 17:40] LABS: HEMOLYSIS < 15 (0-50); Iron 46 ug/dL (37-170)
[2020-11-23 17:41] LABS: Alanine Aminotransferase 17 IU/L (<35); Albumin 3.9 g/dL (3.5-5.0); Alkaline Phosphatase 61 U/L (38-126); Aspartate Aminotransferase 23 IU/L (14-36); BUN Creatinine Ratio 28.1 (6-22); Bilirubin Total 0.2 mg/dL (0.2-1.3); Blood Urea Nitrogen 16 mg/dL (7-17); Calcium 9.6 mg/dL (8.4-10.2); Carbon Dioxide 37 mmol/L (22-32); Chloride 100 mmol/L (98-107); Cholesterol 163 mg/dL (140-199); Estimated Glomerular Filt Rate > 60.0 mL/min (>60); Globulin 3.8 g/dL (1.7-4.1); Glucose 56 mg/dL (80-110); HDL Cholesterol 55 mg/dL (40-60); HEMOLYSIS < 15 (0-50); LDL Cholesterol Calculated 87 mg/dL (<100); Potassium 4.4 mmol/L (3.4-5.1); Sodium 141 mmol/L (137-145); Total Protein 7.7 g/dL (6.3-8.2); Triglycerides 105 mg/dL (35-150)
[2020-11-23 17:42] LABS: Hemoglobin A1C% w Est Avg Glu 8.7 % (4.0-6.0)
[2020-11-23 17:53] LABS: Percent Iron Saturation 17 % (15-50); Total Iron Binding Capacity 270 ug/dL (265-497); Transferrin 224 mg/dL (206-381)
[2020-11-23 18:11] LABS: TSH w/ Reflex to FT4 1.87 uIU/mL (0.47-4.68)
[2020-11-23 18:16] LABS: Ferritin 47 ng/mL (11-264)
== END ==
PROVIDERS: Family Provider Internal Medicine; PCP Physician Assistant; Referring Provider Physician Assistant; Visit Provider Physician Assistant
DX: E78.5 Hyperlipidemia, unspecified (principal); E10.9 Type 1 diabetes mellitus without complications; D64.9 Anemia, unspecified; E03.9 Hypothyroidism, unspecified
CPT/HCPCS: 36415; 80053; 80061; 82728; 83036; 83540; 83550; 84443; 85025

== ENCOUNTER → 2020-11-29 13:17 | Outpatient (CLI) | payer OTHER, SELFPAY ==
[2020-02-09 02:10] VITALS: BMI 28.6
== END ==
PROVIDERS: Family Provider Internal Medicine; PCP Physician Assistant; Referring Provider Physician Assistant; Visit Provider Family Medicine
DX: I87.2 Venous insufficiency (chronic) (peripheral) (principal)
CPT/HCPCS: 29581

== ENCOUNTER → 2020-12-07 14:06 | Outpatient (CLI) | payer OTHER, SELFPAY ==
[2020-02-09 02:10] VITALS: BMI 28.6
== END ==
PROVIDERS: Family Provider Internal Medicine; PCP Physician Assistant; Referring Provider Physician Assistant; Visit Provider Nurse Practitioner Family
DX: I87.2 Venous insufficiency (chronic) (peripheral) (principal); E10.622 Type 1 diabetes mellitus with other skin ulcer; F17.200 Nicotine dependence, unspecified, uncomplicated
CPT/HCPCS: 99212; 99213

== ENCOUNTER 2020-12-13 14:20 | Inpatient (IN) | payer OTHER, SELFPAY ==
[2020-02-09 02:10] VITALS: BMI 28.6
[2020-12-13] VITALS (8 sets, daily range): BP systolic 119–139; BP diastolic 58–63; PULSE 84–106; RESP 14–22; TEMP 36.5–36.7; O2SAT 93–97; BMI 31.3
[2020-12-13] MEDS: SODIUM CHLORIDE 0.9% 1,000 ML 1000 ML IV (15:03)
[2020-12-13 15:14] LABS: Add Manual Diff / Slide Review NO; Basophils Absolute Auto 0 /uL (0-100); Basophils Percent Auto 0.1 % (0-2); Eosinophils Absolute Auto 100 /uL (0-450); Eosinophils Percent Auto 0.7 % (2-4); Hematocrit 39.1 % (36-46); Lymphocytes Absolute Auto 2000 /uL (1100-4500); Lymphocytes Percent Auto 19.5 % (25-40); Mean Corpuscular HGB Conc 33.3 % (30-36); Mean Corpuscular Hemoglobin 28.8 PG (26-34); Mean Corpuscular Volume 86.4 fL (80-100); Monocytes Absolute Auto 600 /uL (0-900); Monocytes Percent Auto 6.2 % (3-14); Neutrophils Absolute Auto 7600 /uL (1500-7000); Neutrophils Percent Auto 73.5 % (50-75); Platelet Count 219 X10^3/uL (150-400); Red Blood Cell Count 4.53 X10^6/uL (4.0-5.2); Red Cell Distribution Width 13.7 % (11.6-14.8); White Blood Cell Count 10.3 X10^3/uL (4.5-11.0)
[2020-12-13 15:21] LABS: Alanine Aminotransferase 17 IU/L (<35); Albumin 3.8 g/dL (3.5-5.0); Alkaline Phosphatase 91 U/L (38-126); Aspartate Aminotransferase 25 IU/L (14-36); BUN Creatinine Ratio 24.1 (6-22); Bilirubin Total 0.5 mg/dL (0.2-1.3); Blood Urea Nitrogen 13 mg/dL (7-17); Calcium 9.3 mg/dL (8.4-10.2); Carbon Dioxide 17 mmol/L (22-32); Chloride 100 mmol/L (98-107); Estimated Glomerular Filt Rate > 60.0 mL/min (>60); Globulin 3.7 g/dL (1.7-4.1); Glucose 367 mg/dL (80-110); HEMOLYSIS < 15 (0-50); Potassium 4.4 mmol/L (3.4-5.1); Sodium 134 mmol/L (137-145); Total Protein 7.5 g/dL (6.3-8.2)
--- NOTE | 2020-12-13 15:22 | ED_ITS ---
HPI - General Adult General Chief complaint: Weakness Stated complaint: weakness Time Seen by Provider: 12/13/20 15:01 Source: patient and EMS Mode of arrival: EMS Limitations: no limitations History of Present Illness HPI narrative: 70-year-old woman with history of type 1 diabetes, atrial flutter, hypertension, hypothyroidism, hyperlipidemia, fibromyalgia, Sjogren syndrome, chronic opioid use presents 24 hours after having an outpatient left lower extremity vein stripping procedure done yesterday. She reports being discharged home and having little recollection of what happened since. She states that her a does not typically help manage her medications specifically her insulin. She reports that she usually takes 15 units of Lantus insulin in the evening and then uses a sliding scale during the day based on food intake. She called medics today because she was hurting and so weak. On questioning she is altered, quite sleepy (falling asleep mid sentence), poor eye contact, complains that she is globally weak and worried that she is septic (reports 4 episodes of sepsis in the last 2 years) and complains of significant lower extremity postoperative pain. She denies fevers or chills. She notes that she has had of minor nonproductive cough for the last 6 months that has not changed. She denies headaches, abdominal pain, diarrhea. She notes that she has been somewhat nauseated. She says she has been taking her morphine for pain control but is not sure if she has eaten since she came home from surgery or if she has used any of her insulin. Related Data Home Medications Medication Instructions Recorded Confirmed escitalopram oxalate [Lexapro] 40 mg PO DAILY #0 03/16/10 02/09/20 omeprazole 20 mg PO DAILY #0 03/16/10 02/09/20 cevimeline 30 mg PO TID 06/24/18 02/09/20 insulin aspart U-100 [Novolog 4 - 6 unit SUBCUT AC 06/24/18 02/09/20 Flexpen U-100 Insulin] lisinopril 2.5 mg PO DAILY 06/24/18 02/09/20 Lantus Solostar U-100 Insulin 30 unit SUBCUT BEDTIME 01/03/19 02/09/20 atorvastatin 20 mg PO DAILY 01/03/19 02/09/20 bupropion HCl 150 mg PO QAM 03/22/19 02/09/20 furosemide 40 mg PO DAILY 03/22/19 02/09/20 potassium chloride 10 meq PO DAILY 03/22/19 02/09/20 Previous Rx's Medication Instructions Recorded hydrocodone-acetaminophen 1 tab PO TID #0 tab 06/27/18 morphine [MS Contin] 15 mg PO Q8H #30 tab 01/09/19 levothyroxine 125 mcg PO DAILY #30 cap 03/26/19 ondansetron 4 mg PO Q6H PRN #20 tab 04/28/19 cephalexin [Keflex] 500 mg PO BID #12 cap 02/12/20 cyclobenzaprine 10 mg PO BEDTIME #10 tab 02/12/20 Allergies Allergy/AdvReac Type Severity Reaction Status Date / Time sulfamethoxazole Allergy Verified 04/28/19 13:58 [From Bactrim] trimethoprim [From Bactrim] Allergy Verified 04/28/19 13:58 Review of Systems Review of Systems Narrative: Remainder of complete review of systems is otherwise unremarkable except for that included in the HPI. Patient History Medical History (Updated 12/13/20 @ 16:03 by Kusum Mac MD) Depression Diabetes Fibromyalgia Fibromyalgia GERD (gastroesophageal reflux disease) Hyperlipidemia Hypothyroidism Meningioma Restless leg syndrome Sjogren's disease Sleep apnea Spinal stenosis, lumbar Venous stasis dermatitis of both lower extremities Surgical History H/O total hysterectomy History of cholecystectomy History of lymph node biopsy Family History Mother Bowel obstruction Father Psychiatric disorder Brother Hypertension Sister Cancer Social History household members: spouse Smoking Status: Current some day smoker alcohol intake: never Smoking Status: Current some day smoker alcohol intake frequency: 0-2 drinks per day Substance Use Type: does not use Exam Narrative Exam Narrative: General: Pale, slightly altered, confused history but able to speak in full sentences. No respiratory distress HEENT: Moist mucous membranes, normal sclera with reactive but small pupils, Neck: No JVD, supple Respiratory: Lungs are clear to auscultation, no wheezing no rales no rhonchi. Full and symmetrical air movement Cardiac: Regular rate and rhythm no murmurs no bruits Abdomen: Soft, nontender, good bowel tones, no flank pain Skin: Warm and dry, no rashes Neurologic: Globally weak but Grossly neurologically intact with no obvious asymmetries or abnormalities Extremities: well perfused, surgical dressings in place for intermittent wounds on the left leg after vein stripping. No evidence of cellulitis and appears to be healing nicely on day 1 postoperative. Psych: Mildly confused, overall poor insight Initial Vital Signs Initial Vital Signs: Vital Signs Pulse Rate 84 12/13/20 14:28 Respiratory Rate 22 12/13/20 14:28 Blood Pressure 127/58 L 12/13/20 14:28 Pulse Oximetry 94 12/13/20 14:28 Course Orders Ordered: ED Orders 12/13/20 14:18 EKG-12 Lead Routine 12/13/20 14:45 Complete Blood Count AUTO DIFF Stat Comprehensive Metabolic Panel Stat 12/13/20 15:10 Troponin I Stat 12/13/20 16:02 COVID19 - ADMIT ([employer]IVE swab/PCR) Stat Discontinued Medications Sodium Chloride (Normal Saline 0.9%) 1,000 mls @ 1,000 mls/hr IV BOLUS ONE Stop: 12/13/20 15:57 Last Infusion: 12/13/20 16:07 Dose: 0 mls/hr Documented by: Admin: 12/13/20 15:03 Dose: 1,000 mls/hr Documented by: CARRIE Insulin Human Regular (Insulin Regular 100 Unit/Ml 3 Ml Vial) 5 unit SUBCUT NOW ONE Stop: 12/13/20 16:04 Last Admin: 12/13/20 16:18 Dose: Not Given Documented by: ANDREEA Vital Signs Vital signs: Vital Signs - 8 hr 12/13/20 14:28 12/13/20 14:52 12/13/20 16:00 Temperature 97.7 F Pulse Rate 84 96 H Respiratory Rate 22 18 Blood Pressure 127/58 L 128/60 139/63 Pulse Oximetry 94 96 12/13/20 16:05 12/13/20 16:21 12/13/20 16:30 Temperature Pulse Rate 101 H 97 H 95 H Respiratory Rate 14 Blood Pressure 133/63 133/63 136/63 Pulse Oximetry 97 97 93 12/13/20 17:00 Temperature Pulse Rate 98 H Respiratory Rate Blood Pressure 119/58 L Pulse Oximetry 93 Medical Decision Making Medical Records Medical records reviewed: Yes I reviewed the patient's medical records. Lab Data Lab results reviewed: Yes I reviewed the patient's lab results. Result diagrams: 12/13/20 14:45 12/13/20 14:45 Labs: Lab Results 12/13/20 12/13/20 12/13/20 Range/Units 14:45 14:45 15:10 WBC 10.3 (4.5-11.0) X10^3/uL RBC 4.53 (4.0-5.2) X10^6/uL Hgb 13.0 (12.0-16.0) g/dL Hct 39.1 (36-46) % MCV 86.4 (80-100) fL MCH 28.8 (26-34) PG MCHC 33.3 (30-36) % RDW 13.7 (11.6-14.8) % Plt Count 219 (150-400) X10^3/uL Neut % (Auto) 73.5 (50-75) % Lymph % (Auto) 19.5 L (25-40) % Edmonson % (Auto) 6.2 (3-14) % Eos % (Auto) 0.7 L (2-4) % Baso % (Auto) 0.1 (0-2) % Neut # (Auto) 7600 H (2965-9329) /uL Lymph # (Auto) 2000 (0520-1618) /uL [place]monson # (Auto) 600 (0-900) /uL Eos # (Auto) 100 (0-450) /uL Baso # (Auto) 0 (0-100) /uL Sodium 134 L (137-145) mmol/L Potassium 4.4 (3.4-5.1) mmol/L Chloride 100 (98-107) mmol/L Carbon Dioxide 17 L (22-32) mmol/L BUN 13 (7-17) mg/dL Creatinine 0.54 (0.52-1.04) mg/dL Estimated GFR > 60.0 (>60) mL/min BUN/Creatinine Ratio 24.1 H (6-22) Glucose 367 H (80-110) mg/dL Calcium 9.3 (8.4-10.2) mg/dL Total Bilirubin 0.5 (0.2-1.3) mg/dL AST 25 (14-36) IU/L ALT 17 (<35) IU/L Alkaline Phosphatase 91 (38-126) U/L Troponin I < 0.012 (0.01-0.034) ng/mL Total Protein 7.5 (6.3-8.2) g/dL Albumin 3.8 (3.5-5.0) g/dL Globulin 3.7 (1.7-4.1) g/dL Albumin/Globulin Ratio 1.0 (1.0-2.8) SARS-CoV-2 (PCR) (Negative) 12/13/20 Range/Units 16:02 WBC (4.5-11.0) X10^3/uL RBC (4.0-5.2) X10^6/uL Hgb (12.0-16.0) g/dL Hct (36-46) % MCV (80-100) fL MCH (26-34) PG MCHC (30-36) % RDW (11.6-14.8) % Plt Count (150-400) X10^3/uL Neut % (Auto) (50-75) % Lymph % (Auto) (25-40) % Edmonson % (Auto) (3-14) % Eos % (Auto) (2-4) % Baso % (Auto) (0-2) % Neut # (Auto) (2071-9392) /uL Lymph # (Auto) (2053-2203) /uL Edmonson # (Auto) (0-900) /uL Eos # (Auto) (0-450) /uL Baso # (Auto) (0-100) /uL Sodium (137-145) mmol/L Potassium (3.4-5.1) mmol/L Chloride (98-107) mmol/L Carbon Dioxide (22-32) mmol/L BUN (7-17) mg/dL Creatinine (0.52-1.04) mg/dL Estimated GFR (>60) mL/min BUN/Creatinine Ratio (6-22) Glucose (80-110) mg/dL Calcium (8.4-10.2) mg/dL Total Bilirubin (0.2-1.3) mg/dL AST (14-36) IU/L ALT (<35) IU/L Alkaline Phosphatase (38-126) U/L Troponin I (0.01-0.034) ng/mL Total Protein (6.3-8.2) g/dL Albumin (3.5-5.0) g/dL Globulin (1.7-4.1) g/dL Albumin/Globulin Ratio (1.0-2.8) SARS-CoV-2 (PCR) Negative (Negative) Point of Care Testing Glucose POC 328 Urine Dip Bedside Urine Glucose 500 mg/dl Bedside Urine Bilirubin - Negative Bedside Urine Ketone +++ 80 Urine Specific Remus 1.030 Bedside Urine Occult Blood - Negative Bedside Urine pH 6.0 Bedside Urine Protein - Negative Bedside Urine Urobilinogen - Negative Bedside Urine Nitrite - Negative Bedside Urine Leukocytes - Negative Esterase Point of care testing: Point of Care Testing Glucose POC 328 Urine Dip Bedside Urine Glucose 500 mg/dl Bedside Urine Bilirubin - Negative Bedside Urine Ketone +++ 80 Urine Specific Remus 1.030 Bedside Urine Occult Blood - Negative Bedside Urine pH 6.0 Bedside Urine Protein - Negative Bedside Urine Urobilinogen - Negative Bedside Urine Nitrite - Negative Bedside Urine Leukocytes - Negative Esterase ECG Data Attestation: I personally reviewed and interpreted this ECG as follows: Interpretation: Sinus rhythm at a rate of [address] T wave changes Normal intervals, normal axis No acute ischemic changes MDM Narrative Medical decision making narrative: 70-year-old woman with type 1 diabetes postop day 1 after an outpatient vein stripping with increased confusion. It sounds like she has not been taking her insulin and has been taking all of her pain medication if not a bit more. She is concerned that she is septic. She has a slightly elevated anion gap, confusion, increased pain and I am concerned that she is at risk for DKA and narcotic overdose. No evidence of acute coronary syndrome. She does have a history of recurrent episodes of sepsis as well as overuse of prescription narcotics in the past and has had issues with her not helping with acute medical care and providing extra narcotics. At this time, I believe she is at significant risk for postoperative complication, DKA and narcotic overdose and will recommend brief hospital admission for pain management and an immediate type 1 diabetes control. Care is reviewed with Dr. Gaston, she agrees to hospital admission. Blood sugar is 367 came down 50 points with fluid. She is declining any subcu insulin at all. I think this offers insight into her overall poor decisional capacity and confirms need for hospital admission. Discharge Plan Departure Patient Disposition: Admitted as Observation Clinical Impression: Acute hyperglycemia Post surgical complication Qualifiers: Surgical complication system/body Area: circulatory system Surgical complication type: unspecified Procedure type: circulatory, unspecified Qualified Code(s): I97.89 - Other postprocedural complications and disorders of the circulatory system, not elsewhere classified Narcotic overdose Qualifiers: Encounter type: initial encounter Injury intent: accidental or unintentional Qualified Code(s): T40.601A - Poisoning by unspecified narcotics, accidental (unintentional), initial encounter Admit Date/Time: 12/13/20 17:00 Admit Provider: Stacey Gaston
[2020-12-13 15:46] LABS: Troponin I < 0.012 ng/mL (0.01-0.034)
--- NOTE | 2020-12-13 16:18 | PC.NURSE ---
patient was informed of her blood sugar being over 300 and she stated that she knows herself and she knows its going to keep coming down. When asked if she was refusing her insulin she said yes, I do not want the insulin.
[2020-12-13 16:47] LABS: COVID19 - ADMIT (NP swab/PCR) Negative (Negative)
--- NOTE | 2020-12-13 18:35 | PC.ADMIT ---
Admission Note: The patient,Alissa Kirby,70 y/o, was given written information regarding hospital policies, unit procedures and contact persons. Patient's smoking status: Current some day smoker. Pt arrived from ED via stretcher. Slider board used to transfer to bed. Pt requested to use bedpan, once on bedpan stated she could not void. Pt flailing legs from side to side. Stating I am so thirsty. Moistened mouth swabs provided. Oriented to room and call system. Bed alarm placed on. Curtain open for close monitoring. Vital Signs - 8 hr 12/13/20 14:28 12/13/20 14:52 12/13/20 16:00 Temperature 97.7 F Pulse Rate 84 96 H Respiratory Rate 22 18 Blood Pressure 127/58 L 128/60 139/63 Pulse Oximetry 94 96 12/13/20 16:05 12/13/20 16:21 12/13/20 16:30 Temperature Pulse Rate 101 H 97 H 95 H Respiratory Rate 14 Blood Pressure 133/63 133/63 136/63 Pulse Oximetry 97 97 93 12/13/20 17:00 Temperature Pulse Rate 98 H Respiratory Rate Blood Pressure 119/58 L Pulse Oximetry 93
--- NOTE | 2020-12-13 21:42 | P.HP_ITS ---
History of Present Illness History of Present Illness Date Patient Seen: 12/13/20 Time Patient Seen: 21:55 Chief complaint: weakness Narrative: Ms. Alissa Kirby is a 68-year-old female patient with a history type 1 diabetes mellitus, meningioma, atrial flutter, hypertension, hypothyroidism, hyperlipidemia, Sjogren syndrome, GERD, fibromyalgia, venous stasis dermatitis and depression who presents to the emergency department complaining of weakness and has not been taking her insulin. The patient is 1 day postoperative left lower extremity vein stripping and reportedly has little recollection following discharge. She is concerned about infection and sepsis having had 4 episodes in last 2 years. The patient is has a difficult time concentrating and is very drowsy falling asleep mid-sentence. The patient's has been attempting to help with medications however the patient is unable provide directions and he is unaccustomed to her medication regimen. Subjective input is limited however the patient denies fevers or chills, headaches or dizziness. She has had no chest pain or shortness of breath. She reported to the ER provider that she has had a chronic nonproductive cough for 6 months. She denies abdominal pain. She has been nauseated and has had poor appetite with poor fluid intake. She reports no bowel or bladder problems. Upon arrival the ER the patient's temperature 97.7?, heart rate 96, blood pressure 128/60, respirations of 18 saturating 96% on room air. No imaging was obtained while in the ER. Twelve lead EKG: Sinus rhythm at a rate of 88, no ectopy or block, no ST or T-wave changes, no evidence of infarct. On laboratory analysis the patient has white count of 10.3 with neutrophils of 7600, hemoglobin of 13.0, hematocrit of 39.1 and platelets of 219. Her sodium is 134, potassium is 4 4, her CO2 is 17 her BUN is 13 with creatinine of 0.54. Her serum glucose is 367. Her liver functions within normal limits. On urinalysis she has a specific gravity of 1.030 with 3+ ketones. In her COVID-19 screening is negative. The patient is accepted to the hospitalist service for type 1 diabetic with hyperglycemia and mild ketoacidosis and medication complications and somnolence. Patient History Medical History Depression Diabetes Fibromyalgia GERD (gastroesophageal reflux disease) Hyperlipidemia Hypothyroidism Meningioma Restless leg syndrome Sjogren's disease Sleep apnea Spinal stenosis, lumbar Venous stasis dermatitis of both lower extremities Surgical History H/O total hysterectomy History of cholecystectomy History of lymph node biopsy History of vein stripping Family & Social History Family History Mother Bowel obstruction Father Psychiatric disorder Brother Hypertension Sister Cancer Social History: household members spouse Prior Living Arrangements House Safety & Behavioral: Feels Safe in Current Yes Environment Been Physically Hurt or No Threatened By a Person Suicidal Ideation Description None Suicide Plan Description No Plan Tobacco & Substance use: Tobacco type cigarettes Smoking Status Current some day smoker alcohol intake never alcohol intake frequency 0-2 drinks per day Substance Use Type does not use Meds Home Medications and Allergies Home Medications Medication Instructions Recorded Confirmed Type escitalopram oxalate [Lexapro] 40 mg PO DAILY #0 03/16/10 12/13/20 History omeprazole 20 mg PO DAILY #0 03/16/10 12/13/20 History cevimeline 10 mg PO TID 06/24/18 12/13/20 History insulin aspart U-100 [Novolog 4 - 6 unit SUBCUT AC 06/24/18 12/13/20 History Flexpen U-100 Insulin] lisinopril 2.5 mg PO DAILY 06/24/18 12/13/20 History hydrocodone-acetaminophen 1 tab PO TID #0 tab 06/27/18 02/09/20 Rx Lantus Solostar U-100 Insulin 25 unit SUBCUT BEDTIME 01/03/19 12/13/20 History atorvastatin 20 mg PO DAILY 01/03/19 12/13/20 History morphine [MS Contin] 15 mg PO Q8H #30 tab 01/09/19 12/13/20 Rx bupropion HCl 150 mg PO QAM 03/22/19 12/13/20 History furosemide 40 mg PO DAILY 03/22/19 12/13/20 History potassium chloride 10 meq PO DAILY 03/22/19 12/13/20 History levothyroxine 125 mcg PO DAILY #30 cap 03/26/19 12/13/20 Rx ondansetron 4 mg PO Q6H PRN #20 tab 04/28/19 12/13/20 Rx cephalexin [Keflex] 500 mg PO BID #12 cap 02/12/20 Rx cyclobenzaprine 10 mg PO BEDTIME #10 tab 02/12/20 12/13/20 Rx alprazolam 0.5 mg PO DAILY PRN 12/13/20 12/13/20 History gabapentin 1,200 mg PO BEDTIME 12/13/20 12/13/20 History hydroxyzine HCl 25 mg PO TID 12/13/20 12/13/20 History olanzapine 2.5 mg PO BEDTIME 12/13/20 12/13/20 History Allergies Allergy/AdvReac Type Severity Reaction Status Date / Time sulfamethoxazole Allergy Verified 04/28/19 13:58 [From Bactrim] trimethoprim [From Bactrim] Allergy Verified 04/28/19 13:58 Review of Systems Review of Systems ROS: Yes All systems reviewed with the patient and are negative except as otherwise documented Exam Vital Signs (past 8 hours): - 12/13/20 14:28 12/13/20 14:52 12/13/20 16:00 Temperature 97.7 F Pulse Rate 84 96 H Respiratory Rate 22 18 Blood Pressure 127/58 L 128/60 139/63 Pulse Oximetry 94 96 12/13/20 16:05 12/13/20 16:21 12/13/20 16:30 Temperature Pulse Rate 101 H 97 H 95 H Respiratory Rate 14 Blood Pressure 133/63 133/63 136/63 Pulse Oximetry 97 97 93 12/13/20 17:00 12/13/20 17:50 Temperature 98.0 F Pulse Rate 98 H 106 H Respiratory Rate 22 Blood Pressure 119/58 L 136/63 Pulse Oximetry 93 96 Oxygen Delivery Method Room Air Narrative Exam Narrative: GENERAL APPEARANCE: well developed, abdominal obesity, resppnsive to verbal stimulus, somulent, restless when awake. HEENT: Normocephalic, PERRLA, conjunctiva clear, EOMs intact without nystagmus, no sinus tenderness to percussion, no rhinorrhea, mucous membranes are moist and pink without lesions or exudate. NECK/THYROID: neck supple, no JVD, no carotid bruit, no thyromegaly, trachea midline. LYMPH NODES: no cervical or supraclavicular lymphadenopathy. SKIN: [place], warm and dry, no visible lesions, rashes, ulcerations or petechiae. HEART: regular rate and rhythm, S1-S2, no murmur, no rubs or gallops, brisk capillary refill, no edema LUNGS: clear to auscultation bilaterally, no coarseness crackles or wheezing, no cough present CHEST: Symmetrical movement, no accessory muscle use, good tidal volume. ABDOMEN: Soft, abdominal obesity, nontender to palpation, no epigastric pain, no organomegaly, no flank or suprapubic tenderness, active bowel tones. EXTREMITIES: alfredo wrap left let to distal upper leg, ecchymosis without redness, warmth or swelling left thigh wounds post vein stripping, MOEx4, strength is 5/5 and symmetrical, no clubing or cyanosis. NEUROLOGIC: AAO x person and place, somulent, impaired mentation and recall, difficulty keepin eyes open, cranial nerves II-XII grossly intact, sensation intact to light touch, hearing grossly normal to speech. PSYCH: Poor eye contact, follows commands, restless, moans, quickly falls asleep when not stimulated. Objective Labs Result Diagrams: 12/13/20 14:45 12/13/20 21:55 Labs: Laboratory Results - last 24 hr 12/13/20 12/13/20 12/13/20 14:45 14:45 15:10 WBC 10.3 RBC 4.53 Hgb 13.0 Hct 39.1 MCV 86.4 MCH 28.8 MCHC 33.3 RDW 13.7 Plt Count 219 Neut % (Auto) 73.5 Lymph % (Auto) 19.5 L [place] % (Auto) 6.2 Eos % (Auto) 0.7 L Baso % (Auto) 0.1 Neut # (Auto) 7600 H Lymph # (Auto) 2000 [place] # (Auto) 600 Eos # (Auto) 100 Baso # (Auto) 0 Sodium 134 L Potassium 4.4 Chloride 100 Carbon Dioxide 17 L BUN 13 Creatinine 0.54 Estimated GFR > 60.0 BUN/Creatinine Ratio 24.1 H Glucose 367 H Calcium 9.3 Total Bilirubin 0.5 AST 25 ALT 17 Alkaline Phosphatase 91 Troponin I < 0.012 Total Protein 7.5 Albumin 3.8 Globulin 3.7 Albumin/Globulin Ratio 1.0 SARS-CoV-2 (PCR) 12/13/20 16:02 WBC RBC Hgb Hct MCV MCH MCHC RDW Plt Count Neut % (Auto) Lymph % (Auto) [place] % (Auto) Eos % (Auto) Baso % (Auto) Neut # (Auto) Lymph # (Auto) [place] # (Auto) Eos # (Auto) Baso # (Auto) Sodium Potassium Chloride Carbon Dioxide BUN Creatinine Estimated GFR BUN/Creatinine Ratio Glucose Calcium Total Bilirubin AST ALT Alkaline Phosphatase Troponin I Total Protein Albumin Globulin Albumin/Globulin Ratio SARS-CoV-2 (PCR) Negative Assessment & Plan Assessment & Plan narrative: 68-year-old female patient with a history type 1 diabetes mellitus, meningioma, atrial flutter, hypertension, hypothyroidism, hyperlipidemia, Sjogren syndrome, GERD, fibromyalgia, venous stasis dermatitis and depression who presents to the emergency department complaining of weakness and has not been taking her insulin. The patient is found to be altered likely related to medication is management with hyperglycemia with mild DKA. 1. Diabetic ketoacidosis, present on admission, active -patient is type 1 diabetic reports not taking insulin. Patient refused insulin in the ER. Initial anion gap admission labs with 17 the CO left 17. Urinalysis: Specific gravity is 1.0303+ ketones and on infective. -Recheck of labs following admission has anion gap increasing to 23 with a CO decreased 8 potassium increased from 4.4 to 5.7. -the patient received her evening dose of Lantus 25 units and 4 units of lispro subcutaneously prior to receipt of labs. -patient is transferred to the intensive care unit, given 5 units regular insulin for glucose on fingerstick 458 and initiation of insulin infusion. VBG obtained with a pH of 7.1, bicarbonate of 10 and base excess of -20. -the patient has received 1 L of normal saline in the emergency department with continuing IV fluid at 150 cc/hour. Ordered saline bolus 1 L over 2 hours will infuse saline at 200 cc/hour. -will change IV fluid to D5 NS 1 glucose is less than 200. -will obtain serial chemistries and treat accordingly. 2. Paroxysmal atrial flutter, chronic, present on admission. Stable. -Patient is currently in sinus rhythm. Will obtain magnesium level and replete as needed for goal ofl K > 4.0 and Mg > 2.0. -Patient is not on rate control medication or anticoagulation. -[id number] score is 4 consistent with high risk for VTE. 3. Chronic pain with opiate dependence, present on admission. Stable. -Patient with a history of fibromyalgia and chronic back pain with spinal oleg nosis. -on prior admission the patient's was providing narcotics for pain, he has been managing patient medications at home likely over medicating the patient. -Continued home pain regimen with medications dispensed appropriately with morphine ER 15 mg every 8 hours, cyclobenzaprine 10 mg from 3 times daily to daily and gabapentin 1200 mg at bedtime. 4. Hyperlipidemia, chronic, present on admission. Stable. -Continued home atorvastatin 20 mg daily. 5. Hypothyroidism, chronic, present on admission. Stable. -TSH normal at 1.87, will add a free T4. -Continued home levothyroxine 125 mcg daily. 6. Sjogren's syndrome, chronic, present on admission. Stable. -Continued home cevimeline 30 mg three times daily to increase salivation. 7. Gastroesophageal reflux disorder, chronic, present on admission. Stable. -patient takes omeprazole 20 mg daily. -ordered Protonix 40 mg x 1 now and will continue Protonix 20 mg daily. 8. Depression and anxiety, chronic, present on admission. Stable. -Continued home bupropion 150 mg extended release daily and escitalopram 40 mg daily. -alprazolam is discontinued with patient presenting with over sedation and significant polypharmacy in high risk combination with opiates. VTE prophylaxis: Enoxaparin IV fluid: Normal saline 200 cc per, transition to D5 NS 1 serum glucose is less than 200. Diet: NPO Code status: FULL CODE, the patient is unable to designate surrogate decision maker, patient's daughter Anny Wells is her designated emergency contact. The patient is admitted to the hospital due to severity of metabolic derangement progressing to diabetic ketoacidosis requiring management in the intensive care unit with IV insulin infusion. Critical care time: 70 minutes. COVID-19 COVID-19 status: Negative Result date/Date tested (Pos, Neg/Pending): 12/13/20 Quality VTE Deep Vein Thrombosis/Pulmonary Embolism Present on Admission: No
[2020-12-13 22:14] LABS: Blood Urea Nitrogen 16 mg/dL (7-17); Calcium 9.6 mg/dL (8.4-10.2); Chloride 105 mmol/L (98-107); Estimated Glomerular Filt Rate > 60.0 mL/min (>60); Glucose 419 mg/dL (80-110); Magnesium 1.8 mg/dL (1.6-2.3); Sodium 136 mmol/L (137-145)
[2020-12-13 22:19] LABS: HEMOLYSIS 64 (0-50); Potassium 5.7 mmol/L (3.4-5.1)
[2020-12-13] MEDS: OLANZapine 2.5 MG TABLET PO (22:22)
[2020-12-13] MEDS: INSULIN GLARGINE 100 UNIT/ML 3ML PEN 25 UNIT SUBCUT (22:23)
[2020-12-13] MEDS: CYCLOBENZAPRINE 10 MG TABLET PO (22:23)
[2020-12-13] MEDS: GABAPENTIN 600 MG TABLET 1200 MG PO (22:23)
[2020-12-13] MEDS: MORPHINE ER 15 MG TABLET PO (22:23)
[2020-12-13 22:26] LABS: Carbon Dioxide 8 mmol/L (22-32)
[2020-12-13] MEDS: INSULIN LISPRO 100 UNIT/ML 3ML VIAL SUBCUT (22:42)
[2020-12-13] MEDS: SODIUM CHLORIDE 0.9% 1,000 ML 200 ML IV (22:53)
[2020-12-13] MEDS: PANTOPRAZOLE 40 MG VIAL IV (22:59)
[2020-12-13] MEDS: INSULIN REGULAR 100 UNIT/ML 3 ML VIAL SUBCUT (23:14)
[2020-12-13 23:16] LABS: Phosphorous 4.7 mg/dL (2.8-4.1)
[2020-12-13 23:19] LABS: HCO3 VBG 10 mmol/L (23-28); Oxygen Saturation VBG 38 % (70-75); PCO2 VBG 31.1 mmHg (45-50); PO2 VBG 29 mmHg (35-45); Total CO2 VBG 11 mmol/L (24-29)
--- NOTE | 2020-12-13 23:28 | PC.NURSE ---
Rec critical lab value CO2 of 8. BG 452, K 5.7 Provider notified. Insulin administered per oct. Pt trans to ICU room 226. Hand-off Report given to Jennifer WREN.
[2020-12-14] VITALS (19 sets, daily range): BP systolic 89–148; BP diastolic 49–83; PULSE 75–108; RESP 14–34; TEMP 36.3–37.3; O2SAT 83–100
[2020-12-14] MEDS: INSULIN DRIP PREMIX 100 UNIT/100 ML PLAST..BAG 6 UNIT IV (00:09)
--- NOTE | 2020-12-14 01:29 | PC.NURSE ---
0000- Insulin gtt started per order. Titrating gtt to BG per order. Bolus of 1 liter of NS over 2hrs started per order. Patient is lethargic but cooperative with care. Will monitor.
[2020-12-14] MEDS: SODIUM CHLORIDE 0.9% 1,000 ML 200 ML IV (01:47)
[2020-12-14] MEDS: DEXTROSE 5%-0.9% NS 1,000 ML 150 ML IV (03:59)
[2020-12-14 04:04] LABS: Hemoglobin A1C% w Est Avg Glu 8.8 % (4.0-6.0)
[2020-12-14 04:09] LABS: BUN Creatinine Ratio 25.4 (6-22); Blood Urea Nitrogen 16 mg/dL (7-17); Calcium 9.4 mg/dL (8.4-10.2); Chloride 113 mmol/L (98-107); Estimated Glomerular Filt Rate > 60.0 mL/min (>60); Glucose 169 mg/dL (80-110); HEMOLYSIS < 15 (0-50); Magnesium 1.6 mg/dL (1.6-2.3); Potassium 4.3 mmol/L (3.4-5.1); Sodium 140 mmol/L (137-145)
[2020-12-14 04:18] LABS: Carbon Dioxide 9 mmol/L (22-32)
[2020-12-14 04:26] LABS: Free T4, Direct Thyroxine 1.29 ng/dL (0.78-2.19)
[2020-12-14] MEDS: SODIUM CHLORIDE 0.45% 1,000 ML 1000 ML IV (04:41)
[2020-12-14] MEDS: DEXTROSE 5%-0.45% NS 1,000 ML 150 ML IV ×2 (05:24→12:12)
[2020-12-14] MEDS: MORPHINE ER 15 MG TABLET PO (05:29)
[2020-12-14] MEDS: LEVOTHYROXINE 125 MCG TABLET PO (05:32)
[2020-12-14 09:16] LABS: Blood Urea Nitrogen 18 mg/dL (7-17); Calcium 8.9 mg/dL (8.4-10.2); Carbon Dioxide 15 mmol/L (22-32); Chloride 113 mmol/L (98-107); Estimated Glomerular Filt Rate > 60.0 mL/min (>60); Glucose 137 mg/dL (80-110); HEMOLYSIS < 15 (0-50); Magnesium 1.6 mg/dL (1.6-2.3); Phosphorous 1.7 mg/dL (2.8-4.1); Sodium 134 mmol/L (137-145)
--- NOTE | 2020-12-14 10:25 | PT-IP ANOTE ---
Physical therapy order received and chart reviewed. Discussed her case with her nurse. Pt is very sleepy today and unable to participate in physical therapy today. Will check back tomorrow as her condition improves.
[2020-12-14 10:32] LABS: HCO3 VBG 15 mmol/L (23-28); Oxygen Saturation VBG 44 % (70-75); PCO2 VBG 34.4 mmHg (45-50); PO2 VBG 28 mmHg (35-45); Total CO2 VBG 16 mmol/L (24-29); pH VBG 7.26 (7.33-7.43)
[2020-12-14] MEDS: INSULIN DRIP PREMIX 100 UNIT/100 ML PLAST..BAG 6.8 UNIT IV (10:41)
--- NOTE | 2020-12-14 10:45 | PM.PN.1 ---
Subjective Subjective Date Patient Seen: 12/14/20 Time Patient Seen: 10:46 Interval history: 68-year-old female patient with a history type 1 diabetes mellitus, meningioma, atrial flutter, hypertension, hypothyroidism, hyperlipidemia, Sjogren syndrome, GERD, fibromyalgia, venous stasis dermatitis and depression who presented to the emergency department complaining of weakness and has not been taking her insulin. She was admitted with DKA. She is more somnolent this AM. She had received multiple doses of pain medications overnight and had worsening acidosis and DKA and was on insulin infusion. Gap is improving, but still mildly acidotic and remains on insulin infusion. She is quite somnolent today, no significant hypercarbia on VBG. Narcan with no improvement. Will check head CT. Exam Vital Signs (past 8 hours): - 12/14/20 04:08 12/14/20 08:00 12/14/20 09:00 Temperature 98.0 F 99.2 F Pulse Rate 95 H 90 92 H Respiratory Rate 28 H 21 23 Blood Pressure 144/83 H 89/49 L 100/55 L Pulse Oximetry 94 97 97 12/14/20 10:00 Temperature Pulse Rate 92 H Respiratory Rate 34 H Blood Pressure 125/59 L Pulse Oximetry 98 Oxygen Delivery Method Room Air Oxygen Flow Rate 0 Narrative Exam Narrative: GENERAL APPEARANCE: well developed, abdominal obesity, moans, not following commands. HEENT: NCAT. sclearae non-icteric. NECK/THYROID: neck supple, no JVD, no carotid bruit, no thyromegaly, trachea midline. LYMPH NODES: no cervical or supraclavicular lymphadenopathy. SKIN: [place], warm and dry, no visible lesions, rashes, ulcerations or petechiae. HEART: regular rate and rhythm, S1-S2, no murmur, no rubs or gallops, brisk capillary refill, no edema LUNGS: clear to auscultation bilaterally, no coarseness crackles or wheezing, no cough present CHEST: Symmetrical movement, no accessory muscle use, good tidal volume. ABDOMEN: Soft, abdominal obesity, nontender to palpation, no epigastric pain, no organomegaly, no flank or suprapubic tenderness, active bowel tones. EXTREMITIES: alfredo wrap left let to distal upper leg, ecchymosis without redness, warmth or swelling left thigh wounds post vein stripping, MOEx4, strength is 5/5 and symmetrical, no clubing or cyanosis. NEUROLOGIC: GCS as noted below at 10. Not following commands this AM. improved later in the day slightly to following commands but with moaning. Opens eyes to voice. PSYCH: restless, moans at times. Objective Labs Result Diagrams: 12/13/20 14:45 12/14/20 08:50 Labs: Laboratory Results - last 24 hr 12/13/20 12/13/20 12/13/20 14:45 14:45 15:10 WBC 10.3 RBC 4.53 Hgb 13.0 Hct 39.1 MCV 86.4 MCH 28.8 MCHC 33.3 RDW 13.7 Plt Count 219 Neut % (Auto) 73.5 Lymph % (Auto) 19.5 L [place] % (Auto) 6.2 Eos % (Auto) 0.7 L Baso % (Auto) 0.1 Neut # (Auto) 7600 H Lymph # (Auto) 2000 [place] # (Auto) 600 Eos # (Auto) 100 Baso # (Auto) 0 VBG pH VBG pCO2 VBG pO2 VBG HCO3 VBG Total CO2 VBG O2 Saturation VBG Base Excess Sodium 134 L Potassium 4.4 Chloride 100 Carbon Dioxide 17 L BUN 13 Creatinine 0.54 Estimated GFR > 60.0 BUN/Creatinine Ratio 24.1 H Glucose 367 H Hemoglobin A1c Calcium 9.3 Phosphorus Magnesium Total Bilirubin 0.5 AST 25 ALT 17 Alkaline Phosphatase 91 Troponin I < 0.012 Total Protein 7.5 Albumin 3.8 Globulin 3.7 Albumin/Globulin Ratio 1.0 Free T4 SARS-CoV-2 (PCR) 12/13/20 12/13/20 12/13/20 16:02 21:55 21:55 WBC RBC Hgb Hct MCV MCH MCHC RDW Plt Count Neut % (Auto) Lymph % (Auto) [place] % (Auto) Eos % (Auto) Baso % (Auto) Neut # (Auto) Lymph # (Auto) [place] # (Auto) Eos # (Auto) Baso # (Auto) VBG pH VBG pCO2 VBG pO2 VBG HCO3 VBG Total CO2 VBG O2 Saturation VBG Base Excess Sodium 136 L Potassium 5.7 H D Chloride 105 Carbon Dioxide 8 L* BUN 16 Creatinine 0.64 Estimated GFR > 60.0 BUN/Creatinine Ratio 25.0 H Glucose 419 H Hemoglobin A1c Calcium 9.6 Phosphorus 4.7 H Magnesium 1.8 Total Bilirubin AST ALT Alkaline Phosphatase Troponin I Total Protein Albumin Globulin Albumin/Globulin Ratio Free T4 SARS-CoV-2 (PCR) Negative 12/13/20 12/14/20 12/14/20 23:10 03:45 03:45 WBC RBC Hgb Hct MCV MCH MCHC RDW Plt Count Neut % (Auto) Lymph % (Auto) [place] % (Auto) Eos % (Auto) Baso % (Auto) Neut # (Auto) Lymph # (Auto) [place] # (Auto) Eos # (Auto) Baso # (Auto) VBG pH 7.10 L* VBG pCO2 31.1 L VBG pO2 29 L VBG HCO3 10 L VBG Total CO2 11 L VBG O2 Saturation 38 L VBG Base Excess -20.0 L Sodium 140 Potassium 4.3 D Chloride 113 H Carbon Dioxide 9 L* BUN 16 Creatinine 0.63 Estimated GFR > 60.0 BUN/Creatinine Ratio 25.4 H Glucose 169 H D Hemoglobin A1c 8.8 H Calcium 9.4 Phosphorus Magnesium 1.6 Total Bilirubin AST ALT Alkaline Phosphatase Troponin I Total Protein Albumin Globulin Albumin/Globulin Ratio Free T4 SARS-CoV-2 (PCR) 12/14/20 12/14/20 12/14/20 03:45 08:50 08:51 WBC RBC Hgb Hct MCV MCH MCHC RDW Plt Count Neut % (Auto) Lymph % (Auto) [place] % (Auto) Eos % (Auto) Baso % (Auto) Neut # (Auto) Lymph # (Auto) [place] # (Auto) Eos # (Auto) Baso # (Auto) VBG pH 7.26 L VBG pCO2 34.4 L VBG pO2 28 L VBG HCO3 15 L VBG Total CO2 16 L VBG O2 Saturation 44 L VBG Base Excess -12.0 L Sodium 134 L Potassium 4.0 Chloride 113 H Carbon Dioxide 15 L BUN 18 H Creatinine 0.58 Estimated GFR > 60.0 BUN/Creatinine Ratio 31.0 H Glucose 137 H Hemoglobin A1c Calcium 8.9 Phosphorus 1.7 L D Magnesium 1.6 Total Bilirubin AST ALT Alkaline Phosphatase Troponin I Total Protein Albumin Globulin Albumin/Globulin Ratio Free T4 1.29 SARS-CoV-2 (PCR) [facility] Medical History Depression Diabetes Fibromyalgia GERD (gastroesophageal reflux disease) Hyperlipidemia Hypothyroidism Meningioma Restless leg syndrome Sjogren's disease Sleep apnea Spinal stenosis, lumbar Venous stasis dermatitis of both lower extremities Surgical History H/O total hysterectomy History of cholecystectomy History of lymph node biopsy History of vein stripping Family History Mother Bowel obstruction Father Psychiatric disorder Brother Hypertension Sister Cancer Social History household members: spouse Smoking Status: Current some day smoker alcohol intake: never Assessment & Plan Assessment & Plan narrative: 68-year-old female patient with a history type 1 diabetes mellitus, meningioma, atrial flutter, hypertension, hypothyroidism, hyperlipidemia, Sjogren syndrome, GERD, fibromyalgia, venous stasis dermatitis and depression who presents to the emergency department complaining of weakness and has not been taking her insulin. The patient is found to be altered likely related to medication is management with hyperglycemia with mild DKA. 1. Diabetic ketoacidosis, present on admission, active -patient is type 1 diabetic reports not taking insulin. Patient refused insulin in the ER. Initial anion gap admission labs with 17 the CO left 17. Urinalysis: Specific gravity is 1.0303+ ketones and on infective. -Recheck of labs following admission has anion gap increasing to 23 with a CO decreased 8 potassium increased from 4.4 to 5.7. Slowly improving this afternoon with insulin infusion. -continue to follow serial chemistries q4. Continue insulin infusion until gap closed, acidosis resolved, and able to tolerate oral intake. -continue insulin infusion per DKA protocol currently. 2. Metabolic encephalopathy, acute, present on admission - suspect secondary to DKA. No improvement with Narcan today, VBG without hypercarbia. Improving with insulin infusion this afternoon. - GCS of 10 this AM during severe DKA. - no head imaging since admission, will check non-con head CT. If continued encephalopathy consider MRI. 3. Paroxysmal atrial flutter, chronic, present on admission. Stable. -Patient is currently in sinus rhythm. Will obtain magnesium level and replete as needed for goal ofl K > 4.0 and Mg > 2.0. -Patient is not on rate control medication or anticoagulation. -[id number] score is 4 4. Chronic pain with opiate dependence, present on admission. Stable. -Patient with a history of fibromyalgia and chronic back pain with spinal stenosis. -on prior admission the patient's was providing narcotics for pain, he has been managing patient medications at home likely over medicating the patient. -Continued home pain regimen intially with medications dispensed appropriately with morphine ER 15 mg every 8 hours, cyclobenzaprine 10 mg from 3 times daily to daily and gabapentin 1200 mg at bedtime. Will hold these given current encephaloapthy. 5. Hyperlipidemia, chronic, present on admission. Stable. -Continued home atorvastatin 20 mg daily. 6. Hypothyroidism, chronic, present on admission. Stable. -TSH normal at 1.87, will add a free T4. -Continued home levothyroxine 125 mcg daily. 7. Sjogren's syndrome, chronic, present on admission. Stable. -Continued home cevimeline 30 mg three times daily to increase salivation. 8. Gastroesophageal reflux disorder, chronic, present on admission. Stable. -patient takes omeprazole 20 mg daily. -ordered Protonix 40 mg x 1 now and will continue Protonix 20 mg daily. 9. Depression and anxiety, chronic, present on admission. Stable. -Continued home bupropion 150 mg extended release daily and escitalopram 40 mg daily. -alprazolam is discontinued with patient presenting with over sedation and significant polypharmacy in high risk combination with opiates. VTE prophylaxis: Enoxaparin Diet: NPO Code status: FULL CODE, the patient is unable to designate surrogate decision maker, patient's daughter Anny Wells is her designated emergency contact. Dispo: Remains ICU I spent 35 minutes providing critical care management this patient. This excludes time spent in performing separately billed procedures. Scores GCS [place] coma scale eye opening: To sound [place] coma scale verbal response: Sounds [place] coma scale motor response: Normal flexion [place] coma scale total score: 9 Quality VTE Deep Vein Thrombosis/Pulmonary Embolism Present on Admission: No
--- NOTE | 2020-12-14 10:52 | DIET.PN ---
Dietary Progress Note Assessment: 70y F c T1D admitted c mild DKA referred to nutrition for same. Pt was somnolent when RD visited. Per pts in room, pt dx c adult onset T1D 20y ago and has only been hospitalized once for DKA since then. Pt had vein stripped at hospital in [place] a few days ago, was fasting night prior to surgery and did not take insulin. That evening at home, pt ate large bowl cream of wheat, did not take insulin, and yesterday only ate 1.5 Katelyn oranges, again, not taking insulin. HT: 170.1cm WT: 85.5kg BMI: 29.5 Labs:admit: VBG ph 7.1 LL, K+ 5.7 H, CO2 8 LL, BG 419 H, A1c 8.8 H, phos 4.7 H, MNA:12 normal Jv:22 Nutrition Diagnosis: altered nutrition related laboratory values r/t endocrine dysfunction and acute lack of insulin use aeb pt in atypical eating pattern secondary to recent surgical procedure, pt reports not taking insulin x3d, pt admitted c mild DKA and electrolyte derangement (see labs above). Interventions: 1. Discussed ensuring adequate T1D pre- and post- surgical instruction to avoid future issues.. Diet Order: NPO Monitoring/Evaluations: associated labs, diet advancement
[2020-12-14] MEDS: NALOXONE 0.4 MG/ML VIAL 0.2 MG IV (11:30)
[2020-12-14] MEDS: ENOXAPARIN 40 MG/0.4 ML SYRINGE SUBCUT (11:30)
--- NOTE | 2020-12-14 12:40 | DI.CT.S_ITS ---
PROCEDURE: CT HEAD/BRAIN WO CON INDICATIONS: AMS TECHNIQUE: Noncontrast 4.5 mm thick angled axial sections acquired from the foramen magnum to the vertex, with coronal and sagittal reformats. For radiation dose reduction, the following was used: automated exposure control, adjustment of mA and/or kV according to patient size. COMPARISON: None. FINDINGS: Image quality: Excellent. CSF spaces: Basal cisterns are patent. No extra-axial fluid collections. Ventricles are normal in size and shape. Brain: No midline shift. No intracranial masses or hemorrhage. Jensen-white matter interface is normal. Skull and face: Calvarium and visualized facial bones are intact, without suspicious lesions. Sinuses: There is mucosal thickening involving the ethmoid air cells and right maxillary sinus, with a air-fluid level 1/3 filling the volume of the right maxillary sinus indicating acute sinusitis. 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 IMPRESSION: Brain parenchyma appears normal. No intracranial hemorrhage or mass. Note is made of ethmoid air cell and right maxillary sinusitis. The sinusitis at the right maxillary sinus includes an air-fluid level. 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 Ethmoid air cells show mucosal thickening. Mastoid air cells are normal. Dictated by: Weston Paulson M.D. on 12/14/2020 at 13:37 Approved by: Weston Paulson M.D. on 12/14/2020 at 13:39
--- NOTE | 2020-12-14 14:29 | PC.NURSE ---
Addendum entered by Clarisa Abraham R.N. 12/14/20 15:25: Unable to get med rec completed as is unsure of home medications. Addendum entered by Clarisa Abraham R.N. 12/14/20 14:40: Pt has been using bedpan to void, needs frequent cues to stay awake enough to finish using bedpan. Addendum entered by Clarisa Abraham R.N. 12/14/20 14:39: CO2 monitor placed by RT. Original Note: AM shift Pt is on insulin gtt @ 4.3units/hr and d5 0.45 NS @ 150mls/hr Pt is very somnolent. No meds given PO, as Pt is unsafe to swallow at this time. Will wake to loud voice and touch or sternal rub. Unable to hold gaze. Spouse at bedside and reports Pt is a heavy sleeper, often in recliners at home. Following DKA per protocol. Pt remains very sedate. Dr Esqueda ordered head CT, came back negative. Pt is being turned PRN. Hourly blood sugar checks. Labs drawn at 1400, awaiting results. JOSEPH active.
[2020-12-14] MEDS: DEXTROSE 10 % IN WATER 1,000 ML 85.5 ML IV ×3 (16:40→22:15)
[2020-12-14 17:27] LABS: BUN Creatinine Ratio 27.3 (6-22); Blood Urea Nitrogen 15 mg/dL (7-17); Calcium 9.4 mg/dL (8.4-10.2); Carbon Dioxide 15 mmol/L (22-32); Chloride 113 mmol/L (98-107); Estimated Glomerular Filt Rate > 60.0 mL/min (>60); Glucose 134 mg/dL (80-110); HEMOLYSIS < 15 (0-50); Potassium 3.8 mmol/L (3.4-5.1); Sodium 135 mmol/L (137-145)
[2020-12-14] MEDS: ATORVASTATIN 20 MG TABLET PO (21:16)
[2020-12-14] MEDS: DOCUSATE 100 MG CAPSULE PO (21:16)
[2020-12-14] MEDS: GABAPENTIN 600 MG TABLET 1200 MG PO (21:17)
[2020-12-14] MEDS: INSULIN GLARGINE 100 UNIT/ML 3ML PEN 25 UNIT SUBCUT (21:17)
[2020-12-14] MEDS: OLANZapine 2.5 MG TABLET PO (21:17)
--- NOTE | 2020-12-14 22:36 | PC.NURSE ---
shift note: Pt wakes easily,oriented but lethargic. VSS, Sats 99% on RA. IV saline locked, insulin infusion dc/d. Denies pain or discomfort, up to BSC x1 this shift.
[2020-12-15] VITALS (20 sets, daily range): BP systolic 118–191; BP diastolic 58–81; PULSE 79–104; RESP 13–27; TEMP 36.2–37.3; O2SAT 96–100
[2020-12-15 05:24] LABS: BUN Creatinine Ratio 26.9 (6-22); Blood Urea Nitrogen 14 mg/dL (7-17); Carbon Dioxide 14 mmol/L (22-32); Chloride 113 mmol/L (98-107); Estimated Glomerular Filt Rate > 60.0 mL/min (>60); Glucose 318 mg/dL (80-110); HEMOLYSIS < 15 (0-50); Magnesium 1.9 mg/dL (1.6-2.3); Phosphorous 1.5 mg/dL (2.8-4.1); Potassium 3.7 mmol/L (3.4-5.1); Sodium 135 mmol/L (137-145)
[2020-12-15] MEDS: LEVOTHYROXINE 125 MCG TABLET PO (05:59)
[2020-12-15] MEDS: INSULIN LISPRO 100 UNIT/ML 3ML VIAL 10 UNIT SUBCUT (06:44)
--- NOTE | 2020-12-15 07:47 | P.PN_ITS ---
Subjective Subjective Date Patient Seen: 12/15/20 Time Patient Seen: 07:47 Interval history: 68-year-old female patient with a history type 1 diabetes mellitus, meningioma, atrial flutter, hypertension, hypothyroidism, hyperlipidemia, Sjogren syndrome, GERD, fibromyalgia, venous stasis dermatitis and depression who presented to the emergency department complaining of weakness and had not been taking her insulin. She was admitted with DKA. She was quite somnolent yesterday but awoke later in the evening. Her insulin infusion was shut off around 10:30 pm yesterday evening. She is awake and alert this morning. Denies complaints other than chronic back pain and is asking for resumption of her home MS rachelle. Denies fever, chills, nausea, vomiting, abdominal pain this AM. Exam Vital Signs (past 8 hours): - 12/15/20 00:00 12/15/20 00:15 12/15/20 00:30 Temperature 97.5 F L Pulse Rate 80 83 86 Respiratory Rate 17 16 18 Blood Pressure 125/60 Pulse Oximetry 98 98 98 12/15/20 00:45 12/15/20 01:00 12/15/20 01:15 Temperature Pulse Rate 96 H 92 H 86 Respiratory Rate 21 20 15 Blood Pressure 157/71 H Pulse Oximetry 99 99 99 12/15/20 01:30 12/15/20 01:45 12/15/20 02:00 Temperature Pulse Rate 87 86 81 Respiratory Rate 17 15 14 Blood Pressure 130/60 Pulse Oximetry 99 98 100 12/15/20 02:15 12/15/20 02:30 12/15/20 02:45 Temperature Pulse Rate 85 84 84 Respiratory Rate 15 15 15 Blood Pressure Pulse Oximetry 98 99 12/15/20 03:00 12/15/20 03:15 12/15/20 03:30 Temperature Pulse Rate 82 104 H 83 Respiratory Rate 16 27 H 13 Blood Pressure 147/68 H Pulse Oximetry 99 99 99 12/15/20 07:25 Temperature 98.9 F Pulse Rate 88 Respiratory Rate 20 Blood Pressure 191/81 H Pulse Oximetry 100 Oxygen Delivery Method Room Air Oxygen Flow Rate 0 Narrative Exam Narrative: GENERAL APPEARANCE: well developed, no acute distress. just w aking up. HEENT: NCAT. sclearae non-icteric. NECK/THYROID: neck supple, no JVD, no carotid bruit, no thyromegaly, trachea midline. LYMPH NODES: no cervical or supraclavicular lymphadenopathy. SKIN: [place], warm and dry, no visible lesions, rashes, ulcerations or petechiae. HEART: regular rate and rhythm, S1-S2, no murmur, no rubs or gallops, brisk capillary refill, no edema LUNGS: clear to auscultation bilaterally, no coarseness crackles or wheezing, no cough present CHEST: Symmetrical movement, no accessory muscle use, good tidal volume. ABDOMEN: Soft, NT/ND. EXTREMITIES: chronic venous stasis changes, no effusions, no tenderness. L groin dressing c/d/i from vein stripping. NEUROLOGIC: awake and alert. GCS now 15. No focal deficits. Objective Labs Result Diagrams: 12/13/20 14:45 12/15/20 04:47 Labs: Laboratory Results - last 24 hr 12/14/20 12/14/20 12/14/20 08:50 08:51 14:23 VBG pH 7.26 L VBG pCO2 34.4 L VBG pO2 28 L VBG HCO3 15 L VBG Total CO2 16 L VBG O2 Saturation 44 L VBG Base Excess -12.0 L Sodium 134 L Cancelled Potassium 4.0 Cancelled Chloride 113 H Cancelled Carbon Dioxide 15 L Cancelled BUN 18 H Cancelled Creatinine 0.58 Cancelled Estimated GFR > 60.0 Cancelled BUN/Creatinine Ratio 31.0 H Cancelled Glucose 137 H Cancelled Calcium 8.9 Cancelled Phosphorus 1.7 L D Magnesium 1.6 12/14/20 12/15/20 17:10 04:47 VBG pH VBG pCO2 VBG pO2 VBG HCO3 VBG Total CO2 VBG O2 Saturation VBG Base Excess Sodium 135 L 135 L Potassium 3.8 3.7 Chloride 113 H 113 H Carbon Dioxide 15 L 14 L BUN 15 14 Creatinine 0.55 0.52 Estimated GFR > 60.0 > 60.0 BUN/Creatinine Ratio 27.3 H 26.9 H Glucose 134 H 318 H D Calcium 9.4 9.0 Phosphorus 1.5 L Magnesium 1.9 [facility] Medical History Depression Diabetes Fibromyalgia GERD (gastroesophageal reflux disease) Hyperlipidemia Hypothyroidism Meningioma Restless leg syndrome Sjogren's disease Sleep apnea Spinal stenosis, lumbar Venous stasis dermatitis of both lower extremities Surgical History H/O total hysterectomy History of cholecystectomy History of lymph node biopsy History of vein stripping Family History Mother Bowel obstruction Father Psychiatric disorder Brother Hypertension Sister Cancer Social History household members: spouse Smoking Status: Current some day smoker alcohol intake: never Assessment & Plan Assessment & Plan narrative: 68-year-old female patient with a history type 1 diabetes mellitus, meningioma, atrial flutter, hypertension, hypothyroidism, hyperlipidemia, Sjogren syndrome, GERD, fibromyalgia, venous stasis dermatitis and depression who presented to the emergency department complaining of weakness and has not been taking her insulin. The patient is found to be altered likely related to severe DKA. 1. Diabetic ketoacidosis in type 1 diabetic, present on admission, DKA resolved -patient is type 1 diabetic reports not taking insulin. Patient refused insulin in the ER. Initial anion gap admission labs with 17 the CO left 17. Urinalysis: Specific gravity is 1.0303+ ketones and on infective -continued insulin infusion per DKA protocol until anion gap closed, acidosis improved, and patient's mentation improved. Now on basal bolus insulin. -continued home lantus 25 units, AM glucose today 325. will increase to 30. Add home meal time today at 6 U lispro AC and continue sliding scale. May need additional increase tomorrow depending on fasting values. -A1c 8.8% 2. Metabolic encephalopathy, acute, present on admission, improving - suspect secondary to DKA. No improvement with Narcan, VBG without hypercarbia. Improved with insulin infusion and treatment of DKA. - GCS of 10 during severe DKA, now improved. - CT head without acute abnormalities. No focal deficits to suggest CVA now that patient is more alert. - PT evaluation today. 3. Paroxysmal atrial flutter, chronic, present on admission. Stable. -Patient is currently in sinus rhythm. Goal K > 4.0 and Mg > 2.0. -Patient is not on rate control medication or anticoagulation. Defer discussion to PCP. -[id number] score is 4 4. Chronic pain with opiate dependence, present on admission. Stable. -Patient with a history of fibromyalgia and chronic back pain with spinal steno sis. -on prior admission the patient's was providing narcotics for pain, he has been managing patient medications at home likely over medicating the patient. -Continued home pain regimen intially with medications dispensed appropriately with morphine ER 15 mg every 8 hours, cyclobenzaprine 10 mg from 3 times daily to daily and gabapentin 1200 mg at bedtime. Held these given encephalopathy but will slowly resume starting today with initially MS contin. 5. Hyperlipidemia, chronic, present on admission. Stable. -Continued home atorvastatin 20 mg daily. 6. Hypothyroidism, chronic, present on admission. Stable. -TSH normal at 1.87, will add a free T4. -Continued home levothyroxine 125 mcg daily. 7. Sjogren's syndrome, chronic, present on admission. Stable. -Continued home cevimeline 30 mg three times daily to increase salivation. 8. Gastroesophageal reflux disorder, chronic, present on admission. Stable. -patient takes omeprazole 20 mg daily. -ordered Protonix 40 mg x 1 now and will continue Protonix 20 mg daily. 9. Depression and anxiety, chronic, present on admission. Stable. -Continued home bupropion 150 mg extended release daily and escitalopram 40 mg daily. -alprazolam is discontinued with patient presenting with over sedation and significant polypharmacy in high risk combination with opiates. 10. Non-anion gap metabolic acidosis. - likely post DKA NAGMA currently with Bicarb of 14. Patient initially presented with an anion gap acidosis. Will continue to monitor BMP. VTE prophylaxis: Enoxaparin Diet: DM diet. Code status: FULL CODE, surrogate decision maker patient's . Dispo: Inpatient, depending on PT evaluation possible discharge tomorrow if blood glucose remains stable and non-anion gap acidosis improves. Quality VTE Deep Vein Thrombosis/Pulmonary Embolism Present on Admission: No
[2020-12-15] MEDS: ESCITALOPRAM 10 MG TABLET 40 MG PO (08:33)
[2020-12-15] MEDS: ENOXAPARIN 40 MG/0.4 ML SYRINGE SUBCUT (08:33)
[2020-12-15] MEDS: buPROPion XL 150 MG TAB PO (08:34)
[2020-12-15] MEDS: DOCUSATE 100 MG CAPSULE PO ×2 (08:34→21:11)
[2020-12-15] MEDS: lisinopriL 5 MG TABLET 2.5 MG PO (08:34)
[2020-12-15] MEDS: MORPHINE ER 15 MG TABLET PO ×2 (08:35→21:10)
[2020-12-15] MEDS: FUROSEMIDE 40 MG TABLET PO (08:35)
[2020-12-15] MEDS: INSULIN LISPRO 100 UNIT/ML 3ML VIAL SUBCUT ×3 (08:41→16:48)
[2020-12-15] MEDS: INSULIN LISPRO 100 UNIT/ML 3ML VIAL 6 UNIT SUBCUT ×3 (08:42→16:49)
--- NOTE | 2020-12-15 09:09 | CM.DANOTE ---
Discharge Planning/Care Management DCP: assessment: Late entry for 12/14: Case received, EMR reviewed and met with pt's Jamey in team bedside rounds. Gene is designated Pt at that time was somnolent and did not rouse during the rounding process. Pt is a 70 year old female who admitted to care of hospitalist team 12/13 1700. PCP: Natasha Fang Payer: [employer] Sailaja is seeing for diabetic management. Pt carries multiple medical comorbidities in setting of chronic pain/opiate dependence and type I diabetes. Pt with recent surgical procedure at [facility] resulting in minimal food intake and no insulin use for [address] [employer] note for more details. P: will check in again today during Rounds and follow for d/c issues/options. Pt has used [facility] in the past. Would anticipate pt will start mobilizing today/12/15 as she appears to be more alert. Advanced directive, confirm from FAMILY Start: 12/13/20 18:15 Freq: Q24H Status: Active Protocol: Document 12/13/20 18:15 GMP (Rec: 12/13/20 18:54 GMP [id number]) Advance Directive, confirm on record Time 18:54 Person contacted pt Copy received No Document 12/14/20 16:23 CW (Rec: 12/14/20 17:24 CW [id number]) Advance Directive, confirm on record Time 18:54 Person contacted pt Copy received No Copy received No CM Discharge Assessment Start: 12/15/20 09:07 Freq: Status: Active Protocol: Document 12/15/20 09:07 ITV (Rec: 12/15/20 09:09 ITV [id number]) Discharge Planning Assessment Advance Directives? Yes History Provided By Family Member,Medical Record Has Patient been admitted in last 30 No days? Comment last admission to was January 2020 Prior Living Arrangements House Household Members spouse Comment lives with Gurpreet Kirby, prefers Gene Review Status In Process
--- NOTE | 2020-12-15 09:30 | PT.IIE ---
Current Diagnoses Type 1 diabetes mellitus with ketoacidosis without coma (12/13/20) Surgical History (Last Reviewed 12/14/20 @ 00:56 by KENYA Doty) H/O total hysterectomy History of cholecystectomy History of lymph node biopsy History of vein stripping Medical History (Last Reviewed 12/14/20 @ 00:56 by KENYA Doty) Depression Diabetes Fibromyalgia GERD (gastroesophageal reflux disease) Hyperlipidemia Hypothyroidism Meningioma Restless leg syndrome Sjogren's disease Sleep apnea Spinal stenosis, lumbar Venous stasis dermatitis of both lower extremities Physical Therapy Inpatient Evaluation/Re-Eval M1 PT/OT-IP Prior Functional Status Start: 12/15/20 11:49 Freq: NEEDED Status: Active Protocol: Document 12/15/20 09:30 AB (Rec: 12/15/20 12:04 AB [id number]) Medical Review Prior Functional Status Medical History Reviewed Yes Communication able to make needs known Mobility and Gait pt stated that she is independent with all mobilities and ambulation without AD Social History Household Members spouse Living Arrangements House Number of Floors (Floors) One Floor Number of Stairs To Enter/Railing? 1 step to enter Home Environment High Toilet,Tub/Shower Home Equipment Front Wheel Walker,Shower Seat with Backrest,Hand Held Shower,Lift Recliner,Grab Bars Near Toilet,Grab Bars In Shower Additional Social History Comment pt sleeps on her lift chair M2 PT-IP Current Condition Start: 12/15/20 11:49 Freq: NEEDED Status: Active Protocol: Document 12/15/20 09:30 AB (Rec: 12/15/20 12:04 AB [email or web address]) Physical Therapy Current Condition Current Condition Evaluation Date 12/15/20 Treatment Diagnosis DKA; difficulty in walking Onset Date 12/13/20 M3 PT-IP Subjective Start: 12/15/20 11:49 Freq: NEEDED Status: Active Protocol: Document 12/15/20 09:30 AB (Rec: 12/15/20 12:04 AB [email or web address]) Subjective Physical Therapy Visit Type Type Initial Evaluation Visit Start Time 09:30 Visit Stop Time 11:00 Total Visit Minutes 25 Notes pt seen for split visits: 930 to 940 am and 1045 to 1100 am. Number of MUSIC THEORY TEACHER Visits 0 Physical Therapy Visit Comments Patient Comments pt initially refusing but checked back again and agreed to ambulate. M4 PT-IP Mobility and Gait Start: 12/15/20 11:49 Freq: NEEDED Status: Active Protocol: Document 12/15/20 09:30 AB (Rec: 12/15/20 12:04 AB [email or web address]) PT-Bed Mobility Assessment Supine to Sit Supine to Sit Standby Assistance Sit to Supine Sit to Supine Standby Assistance PT-Transfer Assessment Sit to and From Stand Sit to and from Stand Standby Assistance Equipment Transfer Assistive Device Gait Belt,Front Wheeled Walker Orthotic/Prosthetic Devices or Brace: No Transfers Transfer Destination Bed,Chair Transfer Technique ambulated using FWW Transfer Ability Level of Assist Standby Assistance,Contact Guard Assistance,1 Person Assistance,Use of Upper Extremities Comments Mobility Comments nurse informed PT that pt is up to use the toilet. checked on pt and pt using the toilet and PT took over. pt completed sit to stand from the toilet SBA and ambulated to the sink using FWW SBA to CGA. pt was able to maintain standing SBA while completing handwashing. instructed pt to walk to the bed and demonstrate sit <>supine and pt completed bed mobility SBA. pt ambulated in room using FWW SBA to occasional CGA ~ 30 ft . agreed to sit up on chair. positioned on chair. call light and table placed within reach. Left pt with spouse in room. Gait Assessment Gait Gait Assistance Required: Standby Assistance,Contact Guard Assist Distance (Feet) 25 Able to Maintain Weight Bearing Status Yes During Gait Assistive Devices Assistive Device Gait Belt,Front Wheeled Walker Orthotic/Prosthetic Devices or Brace: No Gait Deviations General Gait Pattern Decreased Stride Length, Decreased Feet Clearance Factors Limiting Gait Function Factors Limiting Gait Function Decreased Activity Tolerance, Decreased Strength,Limited Range of Motion,Poor Balance, Poor Safety Awareness PT-Balance Assessment Sitting Balance and Reactions Static Sitting Balance Ability Good Dynamic Sitting Balance Ability Good Standing Balance and Reactions Static Standing Balance Ability Fair Dynamic Standing Balance Ability Fair Device Used using FWW M5 PT-IP Objective Assessments Start: 12/15/20 11:49 Freq: NEEDED Status: Active Protocol: Document 12/15/20 09:30 AB (Rec: 12/15/20 12:04 AB [id number]) Orientation Orientation/Cognition Level of Alertness Alert Orientation Name,Date,Place,Situation Language Function Ability No Deficits Noted Safety Awareness Understands Safety Issues Memory Description No Deficits Noted Gross Range of Motion Lower Extremity ROM Assessment Within Functional Limits Strength Lower Extremity Strength Assessment Within Functional Limits Muscle Tone Muscle Tone WNL Yes M6 PT-IP Treatment Start: 12/15/20 11:49 Freq: NEEDED Status: Active Protocol: Document 12/15/20 09:30 AB (Rec: 12/15/20 12:04 AB [id number]) Physical Therapy Treatment Education Education Provided Safety M7 PT-IP Assessment and Plan Start: 12/15/20 11:49 Freq: NEEDED Status: Active Protocol: Document 12/15/20 09:30 AB (Rec: 12/15/20 12:04 AB [email or web address]) PT Summary Assessment and Plan Potential Rehabilitation Potential Good Status of Condition at Evaluation Stable Summary Impairments Pain,ROM,Strength,Balance, Coordination,Sensation,Bed Mobility,Transfers,Gait, Activity Tolerance Assessment Summary pt requiring SBA to CGA with mobility using FWW. pt was independent without AD prior to admission but stated that she feels weak. recommending use of FWW at this time for safety but PT to continue to work towards independence without AD. pt has her spouse to assist her at home if needed. will also complete stair climbing prior to d/c. Goals Bed Mobility Goal Independent Transfer Goal Independent,Front Wheeled Walker Gait Goal Independent,Front Wheel Walker Gait Distance 200 Other Goals improve ambulation without AD 250 ft I up/down 1 step FWW/without AD SBA Days to Meet Goals 5 Frequency of Treatment Frequency Of Treatment Once a Day Treatment Plan Physical Therapy Treatment Plan Bed Mobility Training,Transfer Training,Gait Training, Therapeutic Exercise,Balance Retraining,Discharge Planning, Hot or Cold Pack,Neuromuscular Re-ed,Coordination Retraining Recommendations To Nursing Amount of Assist Needed 1 Person Assist Discharge Recommendations PT Discharge Recommendations Home with Assistance,Home Health,Outpatient PT Transportation Needs at Discharge Private Vehicle
[2020-12-15] MEDS: SODIUM,POTASSIUM PHOSPHATES PACKET 1 EACH PO (12:12)
[2020-12-15] MEDS: INSULIN GLARGINE 100 UNIT/ML 3ML PEN 30 UNIT SUBCUT (21:09)
[2020-12-15] MEDS: GABAPENTIN 600 MG TABLET 1200 MG PO (21:11)
[2020-12-15] MEDS: ATORVASTATIN 20 MG TABLET PO (21:11)
[2020-12-15] MEDS: OLANZapine 2.5 MG TABLET PO (21:12)
[2020-12-16 00:12] VITALS: BP 138/68; PULSE 85; RESP 16; TEMP 36.4; O2SAT 97
[2020-12-16 04:10] VITALS: BP 105/59; PULSE 77; RESP 16; TEMP 36.4; O2SAT 93
[2020-12-16 05:21] LABS: BUN Creatinine Ratio 23.9 (6-22); Blood Urea Nitrogen 11 mg/dL (7-17); Calcium 9.1 mg/dL (8.4-10.2); Carbon Dioxide 26 mmol/L (22-32); Chloride 106 mmol/L (98-107); Estimated Glomerular Filt Rate > 60.0 mL/min (>60); Glucose 221 mg/dL (80-110); HEMOLYSIS < 15 (0-50); Magnesium 1.7 mg/dL (1.6-2.3); Potassium 3.1 mmol/L (3.4-5.1); Sodium 136 mmol/L (137-145)
[2020-12-16] MEDS: MORPHINE ER 15 MG TABLET PO (05:58)
[2020-12-16] MEDS: LEVOTHYROXINE 125 MCG TABLET PO (05:59)
[2020-12-16] MEDS: POTASSIUM CHLORIDE 40 MEQ in SODIUM CHLORIDE 0.9% 500 ML 130 ML IV (07:20)
[2020-12-16 08:03] VITALS: BP 109/69; PULSE 79; RESP 16; TEMP 36.1; O2SAT 100
[2020-12-16] MEDS: INSULIN LISPRO 100 UNIT/ML 3ML VIAL SUBCUT ×2 (08:12→12:05)
[2020-12-16] MEDS: INSULIN LISPRO 100 UNIT/ML 3ML VIAL 6 UNIT SUBCUT ×2 (08:13→12:05)
[2020-12-16 08:14] VITALS: BP 109/69; PULSE 78
[2020-12-16] MEDS: lisinopriL 5 MG TABLET 2.5 MG PO (08:14)
[2020-12-16] MEDS: ENOXAPARIN 40 MG/0.4 ML SYRINGE SUBCUT (08:17)
[2020-12-16] MEDS: FUROSEMIDE 40 MG TABLET PO (08:18)
[2020-12-16] MEDS: ESCITALOPRAM 10 MG TABLET 40 MG PO (08:18)
[2020-12-16] MEDS: buPROPion XL 150 MG TAB PO (08:18)
[2020-12-16] MEDS: DOCUSATE 100 MG CAPSULE PO (08:18)
--- NOTE | 2020-12-16 10:49 | PT.IPTN ---
Current Diagnoses Type 1 diabetes mellitus with ketoacidosis without coma (12/13/20) Physical Therapy Treatment Note M2 PT-IP Current Condition Start: 12/15/20 11:49 Freq: NEEDED Status: Active Protocol: Document 12/15/20 09:30 AB (Rec: 12/15/20 12:04 AB [id number]) Physical Therapy Current Condition Current Condition Evaluation Date 12/15/20 Treatment Diagnosis DKA; difficulty in walking Onset Date 12/13/20 M3 PT-IP Subjective Start: 12/15/20 11:49 Freq: NEEDED Status: Active Protocol: Document 12/16/20 10:49 AW (Rec: 12/16/20 11:26 AW [id number]) Subjective Physical Therapy Visit Type Type Treatment Note Visit Start Time 10:25 Visit Stop Time 10:49 Total Visit Minutes 24 Physical Therapy Visit Comments Patient Comments Pt is willing to participate with PT M4 PT-IP Mobility and Gait Start: 12/15/20 11:49 Freq: NEEDED Status: Active Protocol: Document 12/16/20 10:49 AW (Rec: 12/16/20 11:26 AW [id number]) PT-Transfer Assessment Sit to and From Stand Sit to and from Stand Standby Assistance Equipment Transfer Assistive Device Gait Belt,Front Wheeled Walker Orthotic/Prosthetic Devices or Brace: No Transfers Transfer Destination Chair,Toilet Transfer Technique ambulated using FWW Transfer Ability Level of Assist Standby Assistance,Contact Guard Assistance,1 Person Assistance,Use of Upper Extremities Comments Mobility Comments Pt was up with nursing moving toward the toilet at PT arrived. PT took over. Pt transferred to the toilet SBA, voided, and completed pericare IND. She stood from the toilet with heavy use of grab bar and ambulated to the sink with FWW SBA. She needed cues to push the walker up to the sink but was then able to stand with good balance for handwashing. She ambulated in the halls 200 feet with two rest breaks using FWW SBA up to CGA with increased fatigue. On return to the room, she transferred to the chair SBA where she was left with call light and all needs in reach. Gait Assessment Gait Gait Assistance Required: Standby Assistance,Contact Guard Assist Distance (Feet) 200 Able to Maintain Weight Bearing Status Yes During Gait Assistive Devices Assistive Device Gait Belt,Front Wheeled Walker Orthotic/Prosthetic Devices or Brace: No Gait Deviations General Gait Pattern Decreased Stride Length, Decreased Feet Clearance, Flexed Trunk Factors Limiting Gait Function Factors Limiting Gait Function Decreased Activity Tolerance, Decreased Strength,Limited Range of Motion,Poor Balance, Poor Safety Awareness Stair Climbing Assessment Evaluation Level of Assist On Stairs Contact Guard Assistance, Minimal Assistance,1 Person Assistance Devices Stair Climbing Assistive Devices None,Front Wheel Walker Technique/Endurance Stair Climbing Direction Ascend and Descend Stair Climbing Technique Step to Step Number of Steps Climbed 1 Stair Climbing Set # Repetitions (reps) 4 Comments Stair Climbing Comments Pt completed two reps with FWW and two reps without AD. She needed CGA with FWW and min assist with no device. PT-Balance Assessment Sitting Balance and Reactions Static Sitting Balance Ability Good Dynamic Sitting Balance Ability Good Standing Balance and Reactions Static Standing Balance Ability Good Dynamic Standing Balance Ability Fair Device Used using FWW M5 PT-IP Objective Assessments Start: 12/15/20 11:49 Freq: NEEDED Status: Active Protocol: Document 12/15/20 09:30 AB (Rec: 12/15/20 12:04 AB [id number]) Orientation Orientation/Cognition Level of Alertness Alert Orientation Name,Date,Place,Situation Language Function Ability No Deficits Noted Safety Awareness Understands Safety Issues Memory Description No Deficits Noted Gross Range of Motion Lower Extremity ROM Assessment Within Functional Limits Strength Lower Extremity Strength Assessment Within Functional Limits Muscle Tone Muscle Tone WNL Yes M6 PT-IP Treatment Start: 12/15/20 11:49 Freq: NEEDED Status: Active Protocol: Document 12/16/20 10:49 AW (Rec: 12/16/20 11:28 AW [id number]) Physical Therapy Treatment Education Education Provided Safety M7 PT-IP Assessment and Plan Start: 12/15/20 11:49 Freq: NEEDED Status: Active Protocol: Document 12/16/20 10:49 AW (Rec: 12/16/20 11:28 AW [id number]) PT Summary Assessment and Plan Potential Rehabilitation Potential Good Status of Condition at Evaluation Stable Summary Impairments Pain,ROM,Strength,Balance, Coordination,Sensation,Bed Mobility,Transfers,Gait, Activity Tolerance Progress Towards Goals Progressing Toward Goals Assessment Summary Pt continues to require SBA to CGA to mobilize with FWW. PT recommends continued use of FWW which pt has at home and pt agrees. Pt has discharge order and will be safe to go home with spouse assist once medically stable. Goals Bed Mobility Goal Independent Transfer Goal Independent,Front Wheeled Walker Gait Goal Independent,Front Wheel Walker Gait Distance 200 Other Goals improve ambulation without AD 250 ft I up/down 1 step FWW/without AD SBA Days to Meet Goals 5 Frequency of Treatment Frequency Of Treatment Once a Day Treatment Plan Physical Therapy Treatment Plan Bed Mobility Training,Transfer Training,Gait Training, Therapeutic Exercise,Balance Retraining,Discharge Planning, Hot or Cold Pack,Neuromuscular Re-ed,Coordination Retraining Recommendations To Nursing Amount of Assist Needed Independent Discharge Recommendations PT Discharge Recommendations Home with Assistance,Home Health,Outpatient PT Transportation Needs at Discharge Private Vehicle
--- NOTE | 2020-12-16 11:02 | CM.DPC ---
Addendum entered by Lindsay Buchanan LPN 12/16/20 11:15: Did check in with both and with pt re ? HH need. Pt says Ying NGUYEN was very helpful a couple years ago after she went to [facility] rehab and then was sent home with HH services. But she states that this time the focus was on her diabetes and she prefers to continue to see her PCP for this management. Original Note: DCP: continued: Case discussed in Team Rounds with Dr. Esqueda confirming pt's readiness for d/c today. Met now with pt in followup. She was found up at sink washing up and preparing to go home. Pt confirmed that her Gene had just been here and was coming back to take her home. IMM #2 given to pt. Pt says she feels very pleased to be going home today.
--- NOTE | 2020-12-16 11:18 | P.DS_ITS ---
History of Present Illness History of Present Illness Date Patient Seen: 12/16/20 Time Patient Seen: 11:19 Chief complaint: weakness Narrative: Per KENYA Doty: Ms. Alissa Kirby is a 68-year-old female patient with a history type 1 diabetes mellitus, meningioma, atrial flutter, hypertension, hypothyroidism, hyperlipidemia, Sjogren syndrome, GERD, fibromyalgia, venous stasis dermatitis and depression who presents to the emergency department complaining of weakness and has not been taking her insulin. The patient is 1 day postoperative left lower extremity vein stripping and reportedly has little recollection following discharge. She is concerned about infection and sepsis having had 4 episodes in last 2 years. The patient is has a difficult time concentrating and is very drowsy falling asleep mid-sentence. The patient's has been attempting to help with medications however the patient is unable provide directions and he is unaccustomed to her medication regimen. Subjective input is limited however the patient denies fevers or chills, headaches or dizziness. She has had no chest pain or shortness of breath. She reported to the ER provider that she has had a chronic nonproductive cough for 6 months. She denies abdominal pain. She has been nauseated and has had poor appetite with poor fluid intake. She rep orts no bowel or bladder problems. Upon arrival the ER the patient's temperature 97.7?, heart rate 96, blood pressure 128/60, respirations of 18 saturating 96% on room air. No imaging was obtained while in the ER. Twelve lead EKG: Sinus rhythm at a rate of 88, no ectopy or block, no ST or T-wave changes, no evidence of infarct. On laboratory analysis the patient has white count of 10.3 with neutrophils of 7600, hemoglobin of 13.0, hematocrit of 39.1 and platelets of 219. Her sodium is 134, potassium is 4 4, her CO2 is 17 her BUN is 13 with creatinine of 0.54. Her serum glucose is 367. Her liver functions within normal limits. On urinalysis she has a specific gravity of 1.030 with 3+ ketones. In her COVID-19 screening is negative. The patient is accepted to the hospitalist service for type 1 diabetic with hyperglycemia and mild ketoacidosis and medication complications and somnolence. Discharge Providers Provider Date of admission: 12/13/20 17:00 Discharge Date: 12/16/20 Primary care physician: Natasha Fang PA-C Consults: 12/13/20 21:35 Consult to Dietitian, Adult Routine Comment: Reason For Exam: Type 1 diabetes, hyperglycemia Consult to Physical Therapy Evaluate & Treat Comment: Fibromyalgia, status post veins present, weakness Physician Instructions: Evaluate and Treat Discharge provider: Andrea Esqueda DO Summary Hospital Course Discharge Diagnosis: Please see hospital course by problem list noted below Hospital Course: 68-year-old female patient with a history type 1 diabetes mellitus, meningioma, atrial flutter, hypertension, hypothyroidism, hyperlipidemia, Sjogren syndrome, GERD, fibromyalgia, venous stasis dermatitis and depression who presented to the emergency department complaining of weakness and has not been taking her insulin. The patient was admitted with encephalopathy secondary to DKA. Improved with insulin infusion, although lethargy took some time to improve. Ultimately discharged home with after doing well with PT and OT. 1. Diabetic ketoacidosis in type 1 diabetic, present on admission, DKA resolved -patient is type 1 diabetic reports not taking insulin. Patient refused insulin in the ER. Initial anion gap admission labs with 17 the CO left 17. Urinalysis: Specific gravity is 1.0303+ ketones and on infective. No infectious etiology identified. Patient has history of toxic encephalopathy and seemingly was confused after vein stripping procedure leading her to not taking her insulin. -continued insulin infusion per DKA protocol until anion gap closed, acidosis improved, and patient's mentation improved. Now on basal bolus insulin. -continued home lantus 25 units, initially but increased to 30. Added back home meal time dosing at 6 U lispro AC with improvement. Recommend discharge at 30 units lantus, with PCP follow up for continued titration. -A1c 8.8% 2. Metabolic encephalopathy, acute, present on admission, improving - suspect secondary to DKA. No improvement with Narcan, VBG without hypercarbia. Improved with insulin infusion and treatment of DKA. - GCS of 10 during severe DKA, now improved. - CT head without acute abnormalities. No focal deficits to suggest CVA now that patient is more alert. - appreciate PT and OT evaluations. 3. Paroxysmal atrial flutter, chronic, present on admission. Stable. -Patient was in sinus rhythm. Goal K > 4.0 and Mg > 2.0. -Patient is not on rate control medication or anticoagulation. Defer discussion to PCP. -[id number] score is 4 4. Chronic pain with opiate dependence, present on admission. Stable. -Patient with a history of fibromyalgia and chronic back pain with spinal stenosis. -on prior admission the patient's was providing narcotics for pain, he has been managing patient medications at home likely over medicating the patient. -Continued home pain regimen intially with medications dispensed appropriately with morphine ER 15 mg every 8 hours, cyclobenzaprine 10 mg from 3 times daily to daily and gabapentin 1200 mg at bedtime. Held these given encephalopathy but will slowly resumed with no signs of toxic encephalopathy and pain was controlled. 5. Hyperlipidemia, chronic, present on admission. Stable. -Continued home atorvastatin 20 mg daily. 6. Hypothyroidism, chronic, present on admission. Stable. -TSH normal at 1.87, will add a free T4. -Continued home levothyroxine 125 mcg daily. 7. Sjogren's syndrome, chronic, present on admission. Stable. -Continued home cevimeline 30 mg three times daily to increase salivation. 8. Gastroesophageal reflux disorder, chronic, present on admission. Stable. -replaced home medications with pantoprazole during admission. 9. Depression and anxiety, chronic, present on admission. Stable. -Continued home bupropion 150 mg extended release daily and escitalopram 40 mg daily. -alprazolam was held with patient presenting with over sedation and significant polypharmacy in high risk combination with opiates. Given improvement and likely cause being DKA these can be resumed with caution. 10. Non-anion gap metabolic acidosis, resolved. - likely post DKA NAGMA with Bicarb of 14 which ultimatelty improved. Patient initially presented with an anion gap acidosis. Status at Discharge Cognitive/behavioral status at discharge: at baseline, oriented Overall status at discharge: patient is progressing back to baseline Time Spent with Patient Time spent: Greater than 30 minutes Exam Vital Signs (past 8 hours): - 12/16/20 04:10 12/16/20 08:03 12/16/20 08:14 Temperature 97.5 F L 97.0 F L Pulse Rate 77 79 78 Respiratory Rate 16 16 Blood Pressure 105/59 L 109/69 109/69 Pulse Oximetry 93 100 Oxygen Delivery Method Room Air Oxygen Flow Rate 0 Narrative Exam Narrative: GENERAL APPEARANCE: well developed, no acute distress. HEENT: NCAT. sclearae non-icteric. NECK/THYROID: neck supple, no JVD, no carotid bruit, no thyromegaly, trachea midline. LYMPH NODES: no cervical or supraclavicular lymphadenopathy. SKIN: [place], warm and dry, no visible lesions, rashes, ulcerations or petechiae. HEART: regular rate and rhythm, S1-S2, no murmur, no rubs or gallops, brisk capillary refill, no edema LUNGS: clear to auscultation bilaterally, no coarseness crackles or wheezing, no cough present CHEST: Symmetrical movement, no accessory muscle use, good tidal volume. ABDOMEN: Soft, NT/ND. EXTREMITIES: chronic venous stasis changes, no effusions, no tenderness. L groin dressing c/d/i from vein stripping. NEUROLOGIC: awake and alert. GCS now 15. No focal deficits. Objective Labs Result Diagrams: 12/13/20 14:45 12/16/20 04:56 Labs: Laboratory Results - last 24 hr 12/16/20 04:56 Sodium 136 L Potassium 3.1 L Chloride 106 Carbon Dioxide 26 BUN 11 Creatinine 0.46 L Estimated GFR > 60.0 BUN/Creatinine Ratio 23.9 H Glucose 221 H Calcium 9.1 Phosphorus 2.0 L Magnesium 1.7 PFSH Medical History Depression Diabetes Fibromyalgia GERD (gastroesophageal reflux disease) Hyperlipidemia Hypothyroidism Meningioma Restless leg syndrome Sjogren's disease Sleep apnea Spinal stenosis, lumbar Venous stasis dermatitis of both lower extremities Surgical History H/O total hysterectomy History of cholecystectomy History of lymph node biopsy History of vein stripping Family History Mother Bowel obstruction Father Psychiatric disorder Brother Hypertension Sister Cancer Social History household members: spouse Smoking Status: Current some day smoker alcohol intake: never Discharge Plan Discharge Plan Patient Disposition: Home Provider Discharge Comment: You were admitted to the hospital with a process called Diabetic ketoacidosis which is a lack of insulin in your body. If you feel ill in the future generally you can cut your home insulin dosing in half if you are not eating. You can also contact your PCP office for help if needed with glucose management. I recommend increasing your lantus to 30 units at night based on blood sugars here and continuing your usual meal time dosing. Please follow up with your PCP in the next 2 weeks to recheck diabetes control. Discharge orders & Medications Prescriptions: New Lantus Solostar U-100 Insulin 100 unit/mL (3 mL) Insulin Pen 30 unit SUBCUT BEDTIME 30 Days RF: 0 Continued omeprazole 20 mg Capsule,Delayed Release(Dr/Ec) 20 mg PO DAILY Qty: 0 RF: 0 escitalopram oxalate [Lexapro] 20 mg Tablet 40 mg PO DAILY Qty: 0 RF: 0 cevimeline 30 mg Capsule 10 mg PO TID RF: 0 lisinopril 2.5 mg Tablet 2.5 mg PO DAILY RF: 0 insulin aspart U-100 [Novolog Flexpen U-100 Insulin] 100 unit/mL Insulin Pen 4 - 6 unit SUBCUT AC RF: 0 hydrocodone-acetaminophen 5-325 mg Tablet 1 tab PO TID Qty: 0 RF: 0 Lantus Solostar U-100 Insulin 100 unit/mL (3 mL) insulin pen 25 unit SUBCUT BEDTIME RF: 0 atorvastatin 20 mg Tablet 20 mg PO DAILY RF: 0 morphine [MS Contin] 15 mg tablet extended release 15 mg PO Q8H Qty: 30 RF: 0 ondansetron 4 mg tablet,disintegrating 4 mg PO Q6H PRN (Reason: nausea and vomiting) Qty: 20 RF: 0 furosemide 40 mg Tablet 40 mg PO DAILY RF: 0 potassium chloride 10 mEq Capsule, Extended Release 10 meq PO DAILY RF: 0 bupropion HCl 150 mg Tablet Extended Release 24 Hr 150 mg PO QAM RF: 0 levothyroxine 125 mcg capsule 125 mcg PO DAILY Qty: 30 RF: 0 cyclobenzaprine 10 mg tablet 10 mg PO BEDTIME Qty: 10 RF: 0 alprazolam 0.5 mg tablet 0.5 mg PO DAILY PRN (Reason: Anxiety) RF: 0 olanzapine 2.5 mg tablet 2.5 mg PO BEDTIME RF: 0 gabapentin 600 mg tablet 1,200 mg PO BEDTIME RF: 0 hydroxyzine HCl 25 mg tablet 25 mg PO TID RF: 0 Discontinued cephalexin [Keflex] 500 mg capsule 500 mg PO BID Qty: 12 RF: 0 Follow up/Referrals: Natasha Fang PA-C [Primary Care Provider] - Diet/Activity/Treatments Diet: Diet as Tolerated and Carb-consistent/Diabetic Activity: As tolerated Visit Report/Discharge Packet Instructions: Diabetic Ketoacidosis, DI for Diabetic Ketoacidosis Discharge Data Primary Care Provider: Natasha Fang Quality VTE Deep Vein Thrombosis/Pulmonary Embolism Present on Admission: No
--- NOTE | 2020-12-16 12:10 | PC.NURSE ---
Addendum entered by Ivonne Bower R.N. 12/16/20 12:55: Home via private vehicle, accompanied by spouse Gene* Original Note: Discharge note: Discharge instructions given to patient and spouse Jarod. Cleared by PT for DC home with spouse. Discussed importance of F/U with PMD, new change in Lantus insulin dose at bedtime, medication adherence, and s/sx of DKA. Both patient and spouse verbalized understanding of discharge instructions.
== END 2020-12-16 12:57 | disposition home or self-care (01) | DRG 637 ==
LOC: ED 16:03 → AC 17:01 → ICU 12-14 08:49 → AC 12-14 16:21
PROVIDERS: Emergency Medicine; Internal Medicine; Nurse Practitioner Adult Health; Admitting Provider Internal Medicine; Emergency Provider Emergency Medicine; Family Provider Internal Medicine; PCP Physician Assistant; Referring Provider Emergency Medicine; Visit Provider Internal Medicine
DX: E10.10 Type 1 diabetes mellitus with ketoacidosis without coma (principal); G93.41 Metabolic encephalopathy; I48.92 Unspecified atrial flutter; F11.20 Opioid dependence, uncomplicated; T38.3X6A Underdosing of insulin and oral hypoglycemic [antidiabetic] drugs, initial encounter; Z91.128 Patient's intentional underdosing of medication regimen for other reason; E03.9 Hypothyroidism, unspecified; E78.5 Hyperlipidemia, unspecified; M35.00 Sjogren syndrome, unspecified; K21.9 Gastro-esophageal reflux disease without esophagitis; M79.7 Fibromyalgia; F32.9 Major depressive disorder, single episode, unspecified; F41.9 Anxiety disorder, unspecified; G89.29 Other chronic pain; I87.2 Venous insufficiency (chronic) (peripheral); F17.210 Nicotine dependence, cigarettes, uncomplicated; Z79.4 Long term (current) use of insulin; Z98.890 Other specified postprocedural states; Z20.822 Contact with and (suspected) exposure to COVID-19
CPT/HCPCS: 36415; 70450; 80048; 80053; 81003; 82805; 82962; 83036; 83735; 84100; 84439; 84484; 85025; 87635; 93005; 96360; 97116; 97161; 97530; 99284; 99285; 99406; C9803; C9113; J1650; J1815; J2310; J3480; J7050

== ENCOUNTER → 2021-01-28 19:28 | Outpatient (ROUT) | payer OTHER, SELFPAY ==
[2020-12-13 17:11] VITALS: BMI 31.3
[2021-01-28 20:14] LABS: Hemoglobin A1C% w Est Avg Glu 8.2 % (4.0-6.0)
[2021-01-28 20:16] LABS: BUN Creatinine Ratio 26.4 (6-22); Blood Urea Nitrogen 14 mg/dL (7-17); Calcium 9.2 mg/dL (8.4-10.2); Carbon Dioxide 32 mmol/L (22-32); Chloride 99 mmol/L (98-107); Cholesterol 152 mg/dL (140-199); Estimated Glomerular Filt Rate > 60.0 mL/min (>60); Glucose 206 mg/dL (80-110); HDL Cholesterol 59 mg/dL (40-60); HEMOLYSIS < 15 (0-50); LDL Cholesterol Calculated 77 mg/dL (<100); Potassium 4.4 mmol/L (3.4-5.1); Sodium 138 mmol/L (137-145); Triglycerides 81 mg/dL (35-150)
== END ==
PROVIDERS: Family Provider Internal Medicine; PCP Physician Assistant; Visit Provider Physician Assistant
DX: E10.65 Type 1 diabetes mellitus with hyperglycemia (principal); E78.2 Mixed hyperlipidemia; E03.9 Hypothyroidism, unspecified
CPT/HCPCS: 80048; 80061; 82043; 82570; 83036; 84443

== ENCOUNTER → 2021-05-22 08:16 | Outpatient (CLI) | payer OTHER, SELFPAY ==
[2020-12-13 17:11] VITALS: BMI 31.3
== END ==
PROVIDERS: Family Provider Internal Medicine; PCP Physician Assistant; Referring Provider Physician Assistant; Visit Provider Family Medicine
DX: I87.2 Venous insufficiency (chronic) (peripheral) (principal); L97.821 Non-pressure chronic ulcer of other part of left lower leg limited to breakdown of skin; L03.116 Cellulitis of left lower limb; Z79.4 Long term (current) use of insulin
CPT/HCPCS: 87070; 87075; 87205; 97597; 99213; 99214

== ENCOUNTER → 2021-05-29 14:55 | Outpatient (CLI) | payer OTHER, SELFPAY ==
[2020-12-13 17:11] VITALS: BMI 31.3
== END ==
PROVIDERS: Family Provider Internal Medicine; PCP Physician Assistant; Referring Provider Physician Assistant; Visit Provider Family Medicine
DX: I87.2 Venous insufficiency (chronic) (peripheral) (principal); R60.0 Localized edema; I73.9 Peripheral vascular disease, unspecified
CPT/HCPCS: 93922; 99212; 99213

== ENCOUNTER → 2021-08-01 14:25 | Outpatient (CLI) | payer OTHER, SELFPAY ==
[2020-12-13 17:11] VITALS: BMI 31.3
== END ==
PROVIDERS: Family Provider Internal Medicine; PCP Physician Assistant; Referring Provider Physician Assistant; Visit Provider Family Medicine
DX: I87.2 Venous insufficiency (chronic) (peripheral) (principal); L97.821 Non-pressure chronic ulcer of other part of left lower leg limited to breakdown of skin; R60.0 Localized edema; E10.622 Type 1 diabetes mellitus with other skin ulcer; M35.00 Sjogren syndrome, unspecified; Z72.0 Tobacco use
CPT/HCPCS: 97597; 99213

== ENCOUNTER → 2021-09-11 12:02 | Outpatient (CLI) | payer OTHER, SELFPAY ==
[2020-12-13 17:11] VITALS: BMI 31.3
== END ==
PROVIDERS: Family Provider Internal Medicine; PCP Physician Assistant; Referring Provider Physician Assistant; Visit Provider Family Medicine

== ENCOUNTER → 2021-11-14 14:32 | Outpatient (CLI) | payer OTHER, SELFPAY ==
[2020-12-13 17:11] VITALS: BMI 31.3
== END ==
PROVIDERS: Family Provider Internal Medicine; PCP Physician Assistant; Referring Provider Physician Assistant; Visit Provider Family Medicine
DX: I87.2 Venous insufficiency (chronic) (peripheral) (principal); L97.822 Non-pressure chronic ulcer of other part of left lower leg with fat layer exposed; R60.0 Localized edema; M35.09 Sjogren syndrome with other organ involvement; L29.8 Other pruritus; E10.622 Type 1 diabetes mellitus with other skin ulcer; Z72.0 Tobacco use
CPT/HCPCS: 11042; 93922; 99212; 99214

== ENCOUNTER → 2021-11-21 15:10 | Outpatient (CLI) | payer OTHER, SELFPAY ==
[2020-12-13 17:11] VITALS: BMI 31.3
== END ==
PROVIDERS: Family Provider Internal Medicine; PCP Physician Assistant; Referring Provider Physician Assistant; Visit Provider Family Medicine
DX: Z09 Encounter for follow-up examination after completed treatment for conditions other than malignant neoplasm (principal); I87.2 Venous insufficiency (chronic) (peripheral); R60.0 Localized edema; M35.09 Sjogren syndrome with other organ involvement; L29.8 Other pruritus; E10.628 Type 1 diabetes mellitus with other skin complications; Z72.0 Tobacco use; Z87.2 Personal history of diseases of the skin and subcutaneous tissue
CPT/HCPCS: 99213; 99214

== ENCOUNTER → 2022-03-24 14:25 | Outpatient (CLI) | payer OTHER, SELFPAY ==
[2020-12-13 17:11] VITALS: BMI 31.3
== END ==
PROVIDERS: Family Provider Internal Medicine; PCP Physician Assistant; Referring Provider Physician Assistant; Visit Provider Family Medicine
DX: I87.2 Venous insufficiency (chronic) (peripheral) (principal); L97.822 Non-pressure chronic ulcer of other part of left lower leg with fat layer exposed; M35.09 Sjogren syndrome with other organ involvement; L29.8 Other pruritus; E10.622 Type 1 diabetes mellitus with other skin ulcer; F17.210 Nicotine dependence, cigarettes, uncomplicated; M35.00 Sjogren syndrome, unspecified
CPT/HCPCS: 11042; 29581; 99213; 99214

== ENCOUNTER → 2022-03-27 15:33 | Outpatient (CLI) | payer OTHER, SELFPAY ==
[2020-12-13 17:11] VITALS: BMI 31.3
== END ==
PROVIDERS: Family Provider Internal Medicine; PCP Physician Assistant; Visit Provider Family Medicine
DX: I87.2 Venous insufficiency (chronic) (peripheral) (principal); L97.822 Non-pressure chronic ulcer of other part of left lower leg with fat layer exposed
CPT/HCPCS: 29581

== ENCOUNTER → 2022-04-02 15:19 | Outpatient (CLI) | payer OTHER, SELFPAY ==
[2020-12-13 17:11] VITALS: BMI 31.3
== END ==
PROVIDERS: Family Provider Internal Medicine; PCP Physician Assistant; Visit Provider Family Medicine
DX: I87.2 Venous insufficiency (chronic) (peripheral) (principal); L97.822 Non-pressure chronic ulcer of other part of left lower leg with fat layer exposed; M35.09 Sjogren syndrome with other organ involvement; L29.8 Other pruritus
CPT/HCPCS: 99212

== ENCOUNTER → 2022-08-28 16:28 | Outpatient (CLI) | payer OTHER, SELFPAY ==
[2020-12-13 17:11] VITALS: BMI 31.3
--- NOTE | 2022-08-28 16:30 | DI.MRI.S_ITS ---
PROCEDURE: MR ORBITS FACE NECK WO/W CON INDICATIONS: 72-year-old female with left orbital rim mass, preop study TECHNIQUE: Noncontrast sagittal T1 spin echo, axial FLAIR, axial gradient echo, axial diffusion and ADC acquired through the brain. Coronal STIR, thin-slice axial T1 spin echo through the orbits. After the administration of contrast, thin-slice axial and coronal T1 spin echo with fat saturation through the orbits, axial and coronal and sagittal T1 spin echo with fat saturation through the brain. COMPARISON: None. FINDINGS: Image quality: Excellent. Orbits: Globes are symmetrical. Bilateral intra-ocular lens replacements noted The optic nerves are normal in size, without abnormal signal or enhancement. The extra-ocular muscles are normal and symmetric in appearance. Optic chiasm is normal. There is enlargement of the left lacrimal gland which decompresses under the left orbital rim into the subcutaneous tissues. The lesion is bilobed and measures overall 1.6 x 1.1 x 1.2 cm. CSF spaces: Ventricles are normal in size and shape. Basal cisterns are patent. No extra-axial fluid collections. Brain: No intracranial bleeds or mass effects. No abnormal intracranial enhancement. Jensen-white matter interface is intact. Diffusion weighted images demonstrate no acute ischemic insults. Pituitary gland appears normal, without sellar or suprasellar masses. Brainstem appears normal. Normal intravascular flow voids are present. Skull and face: Calvarial marrow is normal in signal. Sinuses: Left sinuses hypoplastic or atelectatic. Mucosal thickening in the ethmoid sinus noted. The frontal sinuses are not pneumatized. IMPRESSION: Enlargement of the left lacrimal gland decompresses into the subcutaneous tissues under the left orbital rim, as above Approved by: Perico Longo M.D. on 08/29/2022 at 13:01
== END ==
PROVIDERS: Family Provider Internal Medicine; PCP Physician Assistant; Referring Provider Ophthalmology; Visit Provider Ophthalmology
DX: D31.62 Benign neoplasm of unspecified site of left orbit (principal); H05.41 Enophthalmos due to atrophy of orbital tissue; H02.423 Myogenic ptosis of bilateral eyelids
CPT/HCPCS: 70543; A9579

== ENCOUNTER → 2022-08-29 16:10 | Outpatient (CLI) | payer OTHER, SELFPAY ==
[2020-12-13 17:11] VITALS: BMI 31.3
[2022-08-29 16:45] LABS: Add Manual Diff / Slide Review NO; Basophils Absolute Auto 0 /uL (0-100); Basophils Percent Auto 0.1 % (0-2); Eosinophils Absolute Auto 1100 /uL (0-450); Eosinophils Percent Auto 17.4 % (2-4); Hematocrit 37.8 % (36-46); Hemoglobin 12.9 g/dL (12.0-16.0); Lymphocytes Absolute Auto 3200 /uL (1100-4500); Mean Corpuscular Volume 85.2 fL (80-100); Monocytes Absolute Auto 500 /uL (0-900); Monocytes Percent Auto 7.1 % (3-14); Neutrophils Absolute Auto 1600 /uL (1500-7000); Neutrophils Percent Auto 25.4 % (50-75); Platelet Count 202 X10^3/uL (150-400); Red Blood Cell Count 4.44 X10^6/uL (4.0-5.2); Red Cell Distribution Width 13.2 % (11.6-14.8); White Blood Cell Count 6.4 X10^3/uL (4.5-11.0)
[2022-08-29 17:02] LABS: Alanine Aminotransferase 22 IU/L (<35); Alkaline Phosphatase 49 U/L (38-126); Aspartate Aminotransferase 24 IU/L (14-36); Bilirubin Total 0.3 mg/dL (0.2-1.3); Blood Urea Nitrogen 18 mg/dL (7-17); Calcium 8.8 mg/dL (8.4-10.2); Carbon Dioxide 35 mmol/L (22-32); Chloride 96 mmol/L (98-107); Estimated Glomerular Filt Rate > 60 mL/min (>60); Glucose 145 mg/dL (80-110); HEMOLYSIS < 15 (0-50); Lactate Dehydrogenase 178 U/L (120-246); Potassium 3.8 mmol/L (3.4-5.1); Sodium 136 mmol/L (137-145); Total Protein 7.6 g/dL (6.3-8.2)
[2022-08-29 17:10] LABS: BUN Creatinine Ratio 36.7 (6-22); Blood Urea Nitrogen 18 mg/dL (7-17); Carbon Dioxide 35 mmol/L (22-32); Chloride 95 mmol/L (98-107); Estimated Glomerular Filt Rate > 60 mL/min (>60); Glucose 143 mg/dL (80-110); HEMOLYSIS < 15 (0-50); Phosphorous 3.8 mg/dL (2.8-4.1); Sodium 137 mmol/L (137-145)
[2022-08-29 17:33] LABS: Albumin 3.7 g/dL (3.5-5.0); Albumin Globulin Ratio 0.9 (1.0-2.8); Globulin 3.9 g/dL (1.7-4.1)
[2022-09-02 12:58] LABS: Immunoglobulin A, Serum 134 mg/dL (64-422); Immunoglobulin G,Serum 1921 mg/dL (586-1602); Immunoglobulin M, Serum 174 mg/dL (26-217)
[2022-09-02 16:13] LABS: Albumin 3.2 g/dL (2.9-4.4); Alpha-1-Globulin 0.3 g/dL (0.0-0.4); Alpha-2-Globulin 0.7 g/dL (0.4-1.0); Free Kappa Lt Chains, Serum 84.7 mg/L (3.3-19.4); Gamma Globulin 1.7 g/dL (0.4-1.8); Globulin Total 3.7 g/dL (2.2-3.9); Protein, Total 6.9 g/dL (6.0-8.5)
[2022-09-04 13:12] LABS: Beta-2-Microglobulin 2.9 mg/L (0.6-2.4)
[2022-09-05 15:16] LABS: Albumin 3.6 g/dL (3.5-5.0)
== END ==
PROVIDERS: Internal Medicine Hematology & Oncology; Family Provider Internal Medicine; PCP Physician Assistant; Referring Provider Ophthalmology; Visit Provider Ophthalmology
DX: D31.62 Benign neoplasm of unspecified site of left orbit (principal); H05.41 Enophthalmos due to atrophy of orbital tissue; R77.8 Other specified abnormalities of plasma proteins
CPT/HCPCS: 36415; 80053; 80069; 82232; 82784; 83615; 83883; 84155; 84165; 85025; 86334

== ENCOUNTER 2022-09-17 15:20 | Emergency (ER) | payer OTHER, SELFPAY ==
[2020-12-13 17:11] VITALS: BMI 31.3
[2022-09-17] VITALS (14 sets, daily range): BP systolic 128–185; BP diastolic 65–88; PULSE 75–151; RESP 15–47; TEMP 36.6–37.7; O2SAT 90–95; BMI 26.2
--- NOTE | 2022-09-17 15:42 | DI.RAD.S_ITS ---
PROCEDURE: XR CHEST 1V INDICATIONS: Shortness of breath TECHNIQUE: One view of the chest was acquired. COMPARISON: [facility], CR, XR CHEST 2V, 08/15/2020, 16:43. [facility], CR, XR CHEST 1V, 02/09/2020, 9:59. FINDINGS: Surgical changes and devices: None. Lungs and pleura: No acute appearing airspace opacity identified. Biapical pleural/parenchymal scarring redemonstrated. No large pleural effusion or pneumothorax. Mediastinum: Mediastinal contours appear normal. Heart size is normal. Bones and chest wall: No suspicious bony lesions. Overlying soft tissues appear unremarkable. IMPRESSION: No acute cardiopulmonary abnormality. Dictated by: Devon Wharton M.D. on 09/17/2022 at 16:34 Approved by: Devon Wharton M.D. on 09/17/2022 at 16:36
[2022-09-17] MEDS: ALBUTEROL/IPRATROPIUM 3 ML AMPUL INH (16:17)
--- NOTE | 2022-09-17 16:21 | ED.SOB ---
HPI - SOB/Dyspnea General Chief Complaint: Shortness of Breath/Dyspnea Stated Complaint: cough, difficulty breathing, weak Time Seen by Provider: 09/17/22 16:09 Source: patient Mode of arrival: Family Vehicle Limitations: no limitations History of Present Illness HPI Narrative: This 72-year-old female with history of type 1 diabetes, meningioma, a flutter, hypertension, hypothyroidism, hyperlipidemia, Sjogren's syndrome, GERD, fibromyalgia, depression, and sepsis presents with shortness of breath. Symptoms started this morning and have increased throughout the day. She is no headache, sinus pressure or sore throat. Cough is nonproductive. She is no hemoptysis. She is on albuterol. The diagnosis of COPD versus asthma is unclear. She was a smoker for 7 years. She is also supposed to be taking Advair, she is not been using this medication. She takes Lasix for edema. There is no history of CHF. She currently has no orthopnea or peripheral edema. She is not experiencing fever chills with the cough and dyspnea. She is no chest discomfort or palpitations. Related Data Home Medications Medication Instructions Recorded Confirmed escitalopram oxalate 20 mg tablet 40 mg PO DAILY ##0 03/16/10 06/30/22 (Lexapro) omeprazole 20 mg capsule,delayed 20 mg PO DAILY ##0 03/16/10 06/30/22 release cevimeline 30 mg capsule 10 mg PO TID 06/24/18 06/30/22 insulin aspart U-100 100 unit/mL 4 - 6 unit SUBCUT AC 06/24/18 06/30/22 (3 mL) subcutaneous pen (Novolog Flexpen U-100 Insulin aspart) lisinopril 2.5 mg tablet 2.5 mg PO DAILY 06/24/18 06/30/22 atorvastatin 20 mg tablet 20 mg PO DAILY 01/03/19 06/30/22 insulin glargine 100 unit/mL (3 25 unit SUBCUT BEDTIME 01/03/19 06/30/22 mL) subcutaneous pen (Lantus Solostar U-100 Insulin) bupropion HCl 150 mg 24 hr tablet, 150 mg PO QAM 03/22/19 06/30/22 extended release furosemide 40 mg tablet 20 mg PO DAILY 03/22/19 06/30/22 potassium chloride 10 mEq 10 meq PO DAILY 03/22/19 06/30/22 capsule,extended release alprazolam 0.5 mg tablet 0.5 mg PO DAILY PRN Anxiety 12/13/20 06/30/22 gabapentin 600 mg tablet 1,200 mg PO BEDTIME 12/13/20 06/30/22 hydroxyzine HCl 25 mg tablet 25 mg PO TID 12/13/20 06/30/22 olanzapine 2.5 mg tablet 2.5 mg PO BEDTIME 12/13/20 06/30/22 ascorbic acid (vitamin C) 500 mg 500 mg PO DAILY 06/30/22 06/30/22 tablet (Vitamin C) cholecalciferol (vitamin D3) 25 25 mcg PO DAILY 06/30/22 06/30/22 mcg (1,000 unit) tablet (Vitamin D3) vitamin B complex 1 tab PO DAILY 06/30/22 06/30/22 Previous Rx's Medication Instructions Recorded hydrocodone 5 mg-acetaminophen 325 1 tab PO TID #0 tabs 06/27/18 mg tablet morphine 15 mg tablet,extended 15 mg PO Q8H #30 tabs 01/09/19 release (MS Contin) levothyroxine 125 mcg capsule 125 mcg PO DAILY #30 caps 03/26/19 ondansetron 4 mg disintegrating 4 mg PO Q6H PRN nausea and 04/28/19 tablet vomiting #20 tabs cyclobenzaprine 10 mg tablet 10 mg PO BEDTIME #10 tabs 02/12/20 prednisone 20 mg tablet 60 mg PO DAILY 5 days #15 tabs 09/17/22 Allergies Allergy/AdvReac Type Severity Reaction Status Date / Time sulfamethoxazole Allergy Verified 04/28/19 13:58 [From Bactrim] trimethoprim [From Bactrim] Allergy Verified 04/28/19 13:58 Patient History Medical History Depression Diabetes Fibromyalgia GERD (gastroesophageal reflux disease) Hyperlipidemia Hypothyroidism Meningioma Restless leg syndrome Sjogren's disease Sleep apnea Spinal stenosis, lumbar Venous stasis dermatitis of both lower extremities Surgical History H/O total hysterectomy History of cholecystectomy History of lymph node biopsy History of vein stripping Family History Mother Bowel obstruction Father Psychiatric disorder Brother Hypertension Sister Cancer Social History household members: spouse Smoking Status: Current some day smoker alcohol intake: never substance use type: does not use Smoking Status: Current some day smoker tobacco type: cigarettes alcohol intake frequency: 0-2 drinks per day Substance Use Type: does not use Exam Initial Vital Signs Initial Vital Signs: Vital Signs Temperature 99.8 F H 09/17/22 15:43 Pulse Rate 103 H 09/17/22 15:43 Respiratory Rate 28 H 09/17/22 15:43 Blood Pressure 143/69 H 09/17/22 15:43 Pulse Oximetry 91 09/17/22 15:43 Oxygen Delivery Method 09/17/22 15:43 Course Course Course Narrative: The patient is apparently on Spiriva in addition to albuterol. Her inhaler was initially questioned. She is not been using Spiriva. She is received multiple nebs, as well as Solu-Medrol. She required oxygen for a period of time. She is now 91% on room air, her lungs are clearing. She is feeling better. On ABG her PA O2 is 57 her pCO2 is 47 she is comfortable with these numbers. Orders Ordered: ED Orders 09/17/22 15:42 XR chest 1V Stat EKG-12 Lead Stat Measure peak expiratory flow ONCE RT Consult Eval and Treat NOW 09/17/22 15:52 Covid-19 + FLU A/B + RSV - PCR Stat 09/17/22 16:15 Blood Culture Stat Complete Blood Count AUTO DIFF Stat Comprehensive Metabolic Panel Stat D Dimer Stat Lactate (Lactic Acid) Stat NT-proBNP (BNP-Adult 18+) Stat Prothrombin Time INR Stat Troponin I Stat 09/17/22 19:35 ABG [Arterial Blood Gas] Stat Discontinued Medications Albuterol (Albuterol 2.5 Mg/3 Ml Neb (Adult)) 2.5 mg INH NOW ONE Stop: 09/17/22 18:10 Last Admin: 09/17/22 18:15 Dose: 2.5 mg Documented By: GULSHAN Albuterol/Ipratropium (Albuterol/Ipratropium 3 Ml Ampul) 3 ml INH NOW ONE Stop: 09/17/22 16:14 Last Admin: 09/17/22 16:17 Dose: 3 ml Documented By: KIT Methylprednisolone (Methylprednisolone 125 Mg/2 Ml Vial) 125 mg IV NOW ONE Stop: 09/17/22 16:26 Last Admin: 09/17/22 17:45 Dose: 125 mg Documented By: NR Vital Signs Vital signs: Vital Signs - 8 hr 09/17/22 15:43 09/17/22 16:01 09/17/22 16:02 Temperature 99.8 F H Pulse Rate 103 H 83 Respiratory Rate 28 H Blood Pressure 143/69 H 180/88 H Pulse Oximetry 91 94 Oxygen Delivery Method Room Air Oxygen Flow Rate 09/17/22 16:02 09/17/22 16:37 09/17/22 16:40 Temperature Pulse Rate 84 151 H Respiratory Rate 47 H Blood Pressure 185/85 H Pulse Oximetry 94 94 Oxygen Delivery Method Oxygen Flow Rate 09/17/22 16:40 09/17/22 17:00 09/17/22 17:00 Temperature Pulse Rate 97 H 75 Respiratory Rate 21 19 Blood Pressure 146/70 H Pulse Oximetry 95 94 Oxygen Delivery Method Oxygen Flow Rate 09/17/22 17:30 09/17/22 17:30 09/17/22 18:16 Temperature Pulse Rate 78 107 H Respiratory Rate 19 20 Blood Pressure 150/70 H Pulse Oximetry 94 94 Oxygen Delivery Method Nasal Cannula Oxygen Flow Rate 2.5 09/17/22 18:00 09/17/22 18:00 09/17/22 18:30 Temperature Pulse Rate 82 Respiratory Rate 18 Blood Pressure 136/67 136/65 Pulse Oximetry 94 Oxygen Delivery Method Oxygen Flow Rate 09/17/22 18:30 09/17/22 19:13 09/17/22 19:30 Temperature Pulse Rate 98 H 80 78 Respiratory Rate 17 17 15 Blood Pressure Pulse Oximetry 95 92 94 Oxygen Delivery Method Oxygen Flow Rate MDM - SOB/Dyspnea Lab Data 09/17/22 16:15 09/17/22 16:15 Labs: Lab Results 09/17/22 09/17/22 09/17/22 Range/Units 15:52 16:15 16:15 WBC 5.5 (4.5-11.0) X10^3/uL RBC 5.15 (4.0-5.2) X10^6/uL Hgb 14.7 (12.0-16.0) g/dL Hct 43.7 (36-46) % MCV 84.8 (80-100) fL MCH 28.6 (26-34) PG MCHC 33.7 (30-36) % RDW 13.5 (11.6-14.8) % Plt Count 188 (150-400) X10^3/uL Neut % (Auto) 43.8 L (50-75) % Lymph % (Auto) 29.1 (25-40) % [place] % (Auto) 8.5 (3-14) % Eos % (Auto) 18.6 H (2-4) % Baso % (Auto) 0.0 (0-2) % Neut # (Auto) 2400 (8996-0065) /uL Lymph # (Auto) 1600 (9124-0323) /uL [place] # (Auto) 500 (0-900) /uL Eos # (Auto) 1000 H (0-450) /uL Baso # (Auto) 0 (0-100) /uL PT 12.0 (10.1-12.7) SECONDS INR 1.0 (0.9-1.3) D-Dimer (<500) ng/ml Sodium (137-145) mmol/L Potassium (3.4-5.1) mmol/L Chloride (98-107) mmol/L Carbon Dioxide (22-32) mmol/L BUN (7-17) mg/dL Creatinine (0.52-1.04) mg/dL Estimated GFR (>60) mL/min BUN/Creatinine Ratio (6-22) Glucose (80-110) mg/dL Lactate (0.7-2.1) mmol/L Calcium (8.4-10.2) mg/dL Total Bilirubin (0.2-1.3) mg/dL AST (14-36) IU/L ALT (<35) IU/L Alkaline Phosphatase (38-126) U/L Troponin I (0.01-0.034) ng/mL NT-Pro-B Natriuret Pep (<125) pg/mL Total Protein (6.3-8.2) g/dL Albumin (3.5-5.0) g/dL Globulin (1.7-4.1) g/dL Albumin/Globulin Ratio (1.0-2.8) SARS-CoV-2 (PCR) Negative (Negative) Influenza A (RT-PCR) Flu a negative (NEGATIVE) Influenza B (RT-PCR) Flu b negative (NEGATIVE) RSV (PCR) Negative (Negative) 09/17/22 09/17/22 09/17/22 Range/Units 16:15 16:15 16:15 WBC (4.5-11.0) X10^3/uL RBC (4.0-5.2) X10^6/uL Hgb (12.0-16.0) g/dL Hct (36-46) % MCV (80-100) fL MCH (26-34) PG MCHC (30-36) % RDW (11.6-14.8) % Plt Count (150-400) X10^3/uL Neut % (Auto) (50-75) % Lymph % (Auto) (25-40) % [place] % (Auto) (3-14) % Eos % (Auto) (2-4) % Baso % (Auto) (0-2) % Neut # (Auto) (0665-1734) /uL Lymph # (Auto) (0890-4961) /uL [place] # (Auto) (0-900) /uL Eos # (Auto) (0-450) /uL Baso # (Auto) (0-100) /uL PT (10.1-12.7) SECONDS INR (0.9-1.3) D-Dimer 355 (<500) ng/ml Sodium 135 L (137-145) mmol/L Potassium 4.1 (3.4-5.1) mmol/L Chloride 96 L (98-107) mmol/L Carbon Dioxide 32 (22-32) mmol/L BUN 12 (7-17) mg/dL Creatinine 0.52 (0.52-1.04) mg/dL Estimated GFR > 60 (>60) mL/min BUN/Creatinine Ratio 23.1 H (6-22) Glucose 297 H (80-110) mg/dL Lactate 0.8 (0.7-2.1) mmol/L Calcium 9.0 (8.4-10.2) mg/dL Total Bilirubin 0.5 (0.2-1.3) mg/dL AST 31 (14-36) IU/L ALT 27 (<35) IU/L Alkaline Phosphatase 81 (38-126) U/L Troponin I < 0.012 (0.01-0.034) ng/mL NT-Pro-B Natriuret Pep 139 H (<125) pg/mL Total Protein 9.0 H (6.3-8.2) g/dL Albumin 4.4 (3.5-5.0) g/dL Globulin 4.6 H (1.7-4.1) g/dL Albumin/Globulin Ratio 1.0 (1.0-2.8) SARS-CoV-2 (PCR) (Negative) Influenza A (RT-PCR) (NEGATIVE) Influenza B (RT-PCR) (NEGATIVE) RSV (PCR) (Negative) Point of Care Testing Glucose POC 280 Urine Dip Bedside Urine Glucose 1000 mg/dl Bedside Urine Bilirubin - Negative Bedside Urine Ketone - Negative Urine Specific [place] 1.015 Bedside Urine Occult Blood - Negative Bedside Urine pH 6.5 Bedside Urine Protein - Negative Bedside Urine Urobilinogen - Negative Bedside Urine Nitrite - Negative Bedside Urine Leukocytes - Negative Esterase Imaging Data Chest x-ray: Radiologist's Impression: No acute cardiopulmonary changes. ECG Data Attestation: I personally reviewed and interpreted this ECG as follows: (Normal sinus rhythm the 76 beats per minute. Motion artifact. QT/QTC 415/465. No acute ST elevation.) Discharge Plan Departure Patient Disposition: Home Clinical Impression: Acute exacerbation of chronic obstructive pulmonary disease (COPD) Activity Restrictions/Additional Instructions: Resume Spiriva dosing regularly. Albuterol every 4 hours as needed for cough or wheezing. Prednisone 60 mg daily for 5 days. Follow-up with your doctor next week. Return here as needed. Prescriptions: New prednisone 20 mg tablet 60 mg PO DAILY 5 Days Qty: 15 0RF No Action omeprazole 20 mg Capsule,Delayed Release(Dr/Ec) 20 mg PO DAILY Qty: 0 escitalopram oxalate [Lexapro] 20 mg Tablet 40 mg PO DAILY Qty: 0 Rx Instructions: Take 2 tablets by mouth once daily at 3PM cevimeline 30 mg Capsule 10 mg PO TID lisinopril 2.5 mg Tablet 2.5 mg PO DAILY insulin aspart U-100 [Novolog Flexpen U-100 Insulin] 100 unit/mL Insulin Pen 4 - 6 unit SUBCUT AC Label Comments: takes it with meals. hydrocodone-acetaminophen 5-325 mg Tablet 1 tab PO TID Qty: 0 0RF Label Comments: Pt states she takes 1 hydrocodone/acetaminophen 5/500 mg tab PO TID insulin glargine [Lantus Solostar U-100 Insulin] 100 unit/mL (3 mL) insulin pen 25 unit SUBCUT BEDTIME atorvastatin 20 mg Tablet 20 mg PO DAILY morphine [MS Contin] 15 mg tablet extended release 15 mg PO Q8H Qty: 30 0RF Rx Instructions: 0400, 1200, 2000 ondansetron 4 mg tablet,disintegrating 4 mg PO Q6H PRN (Reason: nausea and vomiting) Qty: 20 0RF ascorbic acid (vitamin C) [Vitamin C] 500 mg Tablet 500 mg PO DAILY Label Comments: PT TO VERIFY DOSE vitamin B complex Tablet 1 tab PO DAILY cholecalciferol (vitamin D3) [Vitamin D3] 25 mcg (1,000 unit) Tablet 25 mcg PO DAILY furosemide 40 mg Tablet 20 mg PO DAILY Label Comments: PT TAKES 20 MG DAILY potassium chloride 10 mEq Capsule, Extended Release 10 meq PO DAILY bupropion HCl 150 mg Tablet Extended Release 24 Hr 150 mg PO QAM levothyroxine 125 mcg capsule 125 mcg PO DAILY Qty: 30 0RF cyclobenzaprine 10 mg tablet 10 mg PO BEDTIME Qty: 10 0RF alprazolam 0.5 mg tablet 0.5 mg PO DAILY PRN (Reason: Anxiety) Label Comments: TAKE 1 TABLET BY MOUTH DAILY NEEDED FOR ANXIETY olanzapine 2.5 mg tablet 2.5 mg PO BEDTIME Label Comments: TAKE 1 TABLET BY MOUTH AT NIGHT FOR SLEEP / MOOD gabapentin 600 mg tablet 1,200 mg PO BEDTIME hydroxyzine HCl 25 mg tablet 25 mg PO TID Referrals: Saundra Cortez PA-C [Primary Care Provider] - Stand Alone Forms: Patient Portal/API
[2022-09-17 16:40] LABS: Add Manual Diff / Slide Review NO; Basophils Absolute Auto 0 /uL (0-100); Eosinophils Absolute Auto 1000 /uL (0-450); Eosinophils Percent Auto 18.6 % (2-4); Hematocrit 43.7 % (36-46); Hemoglobin 14.7 g/dL (12.0-16.0); Lymphocytes Absolute Auto 1600 /uL (1100-4500); Lymphocytes Percent Auto 29.1 % (25-40); Mean Corpuscular HGB Conc 33.7 % (30-36); Mean Corpuscular Hemoglobin 28.6 PG (26-34); Mean Corpuscular Volume 84.8 fL (80-100); Monocytes Absolute Auto 500 /uL (0-900); Monocytes Percent Auto 8.5 % (3-14); Neutrophils Absolute Auto 2400 /uL (1500-7000); Neutrophils Percent Auto 43.8 % (50-75); Platelet Count 188 X10^3/uL (150-400); Red Blood Cell Count 5.15 X10^6/uL (4.0-5.2); Red Cell Distribution Width 13.5 % (11.6-14.8); White Blood Cell Count 5.5 X10^3/uL (4.5-11.0)
[2022-09-17 16:40] LABS: Influenza A - CEPHEID Flu A NEGATIVE (NEGATIVE); Influenza B - CEPHEID Flu B NEGATIVE (NEGATIVE); Respiratory Syncytial Virus Negative (Negative)
[2022-09-17 16:54] LABS: Lactate (Lactic Acid) 0.8 mmol/L (0.7-2.1)
[2022-09-17 16:55] LABS: Alanine Aminotransferase 27 IU/L (<35); Albumin 4.4 g/dL (3.5-5.0); Alkaline Phosphatase 81 U/L (38-126); Aspartate Aminotransferase 31 IU/L (14-36); BUN Creatinine Ratio 23.1 (6-22); Bilirubin Total 0.5 mg/dL (0.2-1.3); Blood Urea Nitrogen 12 mg/dL (7-17); Carbon Dioxide 32 mmol/L (22-32); Chloride 96 mmol/L (98-107); Estimated Glomerular Filt Rate > 60 mL/min (>60); Globulin 4.6 g/dL (1.7-4.1); Glucose 297 mg/dL (80-110); HEMOLYSIS < 15 (0-50); Potassium 4.1 mmol/L (3.4-5.1); Sodium 135 mmol/L (137-145)
[2022-09-17 17:07] LABS: NT-proBNP (BNP-Adult 18+) 139 pg/mL (<125); Troponin I < 0.012 ng/mL (0.01-0.034)
[2022-09-17 17:18] LABS: COVID-19 CEPHEID 4-PLEX PCR Negative (Negative)
[2022-09-17] MEDS: methylPREDNISolone 125 MG/2 ML VIAL IV (17:45)
--- NOTE | 2022-09-17 17:56 | PC.NURSE ---
pt oxygen dropped to 88%, pt appears to be sleeping. placed on 2L NC
[2022-09-17] MEDS: ALBUTEROL 2.5 MG/3 ML NEB (ADULT) INH (18:15)
[2022-09-17 18:17] LABS: D Dimer 355 ng/ml (<500)
[2022-09-17 20:02] LABS: Fractionated Inspired Oxygen 21; HCO3 ABG 29 mmol/L (23-27); Oxygen Saturation ABG 89 % (95-100); PCO2 ABG 46.9 mmHg (35-45); PO2 ABG 57 mmHg (80-100); TCO2 ABG 31 mmol/L (23-27)
--- NOTE | 2022-09-17 20:18 | PC.NURSE ---
Discussed continuing oxygen requirement w/ Dr. Xie. No new orders.
== END 2022-09-17 20:25 | disposition home or self-care (01) ==
PROVIDERS: Emergency Provider Emergency Medicine; Family Provider Internal Medicine; PCP Physician Assistant
DX: J44.1 Chronic obstructive pulmonary disease with (acute) exacerbation (principal); Z20.822 Contact with and (suspected) exposure to COVID-19
CPT/HCPCS: 0241U; 36415; 36600; 71045; 80053; 81003; 82805; 82962; 83605; 83880; 84484; 85025; 85379; 85610; 87040; 93005; 94640; 99284; J2930; J7613

== ENCOUNTER 2022-09-18 20:40 | Inpatient (IN) | payer OTHER, SELFPAY ==
[2020-12-13 17:11] VITALS: BMI 31.3
[2022-09-18] VITALS (11 sets, daily range): BP systolic 135–146; BP diastolic 64–72; PULSE 99–148; RESP 18–43; TEMP 36.4; O2SAT 92–97; BMI 26.6
--- NOTE | 2022-09-18 20:52 | DI.RAD.S_ITS ---
PROCEDURE: XR CHEST 1V INDICATIONS: Shortness of breath TECHNIQUE: One view of the chest was acquired. COMPARISON: [facility], CR, XR CHEST 1V, 09/17/2022, 15:51. FINDINGS: Surgical changes and devices: None. Lungs and pleura: There is hyperinflation of the lungs with flattening of the hemidiaphragms compatible with COPD. No acute consolidation. No pleural effusions or pneumothorax. Mediastinum: Mediastinal contours appear normal. Heart size is normal. Bones and chest wall: No suspicious bony lesions. Overlying soft tissues appear unremarkable. IMPRESSION: 1. No acute cardiopulmonary disease. 2. Findings compatible with COPD redemonstrated. Dictated by: Cullen Knox M.D. on 09/18/2022 at 23:33 Approved by: Cullen Knox M.D. on 09/18/2022 at 23:33
[2022-09-18 20:59] LABS: Add Manual Diff / Slide Review NO; Basophils Absolute Auto 0 /uL (0-100); Basophils Percent Auto 0.3 % (0-2); Eosinophils Absolute Auto 0 /uL (0-450); Eosinophils Percent Auto 0.2 % (2-4); Hematocrit 47.6 % (36-46); Hemoglobin 15.6 g/dL (12.0-16.0); Lymphocytes Absolute Auto 1600 /uL (1100-4500); Lymphocytes Percent Auto 14.4 % (25-40); Mean Corpuscular HGB Conc 32.8 % (30-36); Mean Corpuscular Hemoglobin 28.6 PG (26-34); Mean Corpuscular Volume 87.4 fL (80-100); Monocytes Absolute Auto 700 /uL (0-900); Monocytes Percent Auto 6.4 % (3-14); Neutrophils Absolute Auto 8800 /uL (1500-7000); Neutrophils Percent Auto 78.7 % (50-75); Platelet Count 318 X10^3/uL (150-400); Prothrombin Time 11.8 SECONDS (10.1-12.7); Red Blood Cell Count 5.45 X10^6/uL (4.0-5.2); Red Cell Distribution Width 13.4 % (11.6-14.8); White Blood Cell Count 11.1 X10^3/uL (4.5-11.0)
[2022-09-18 21:03] LABS: Lactate (Lactic Acid) 2.4 mmol/L (0.7-2.1)
[2022-09-18 21:04] LABS: Alanine Aminotransferase 28 IU/L (<35); Albumin 4.7 g/dL (3.5-5.0); Albumin Globulin Ratio 1.1 (1.0-2.8); Alkaline Phosphatase 104 U/L (38-126); Aspartate Aminotransferase 27 IU/L (14-36); BUN Creatinine Ratio 36.2 (6-22); Bilirubin Total 0.7 mg/dL (0.2-1.3); Blood Urea Nitrogen 34 mg/dL (7-17); Calcium 9.5 mg/dL (8.4-10.2); Chloride 92 mmol/L (98-107); Estimated Glomerular Filt Rate > 60 mL/min (>60); Globulin 4.4 g/dL (1.7-4.1); HEMOLYSIS < 15 (0-50); Sodium 132 mmol/L (137-145); Total Protein 9.1 g/dL (6.3-8.2)
[2022-09-18] MEDS: SODIUM CHLORIDE 0.9% 1,000 ML 1000 ML IV (21:05)
[2022-09-18 21:15] LABS: Carbon Dioxide 10 mmol/L (22-32)
[2022-09-18 21:16] LABS: NT-proBNP (BNP-Adult 18+) 445 pg/mL (<125); Troponin I < 0.012 ng/mL (0.01-0.034)
[2022-09-18 21:21] LABS: Potassium 5.4 mmol/L (3.4-5.1)
[2022-09-18 21:22] LABS: Glucose 581 mg/dL (80-110)
[2022-09-18 22:01] LABS: Ketones (Beta-Hydroxybutyrate) 10.11 mmol/L (<0.27)
[2022-09-18 22:03] LABS: HCO3 VBG 12 mmol/L (24-28); Oxygen Saturation VBG 80 % (70-75); PCO2 VBG 31.8 mmHg (45-50); PO2 VBG 54 mmHg (35-45); Total CO2 VBG 13 mmol/L (24-29); pH VBG 7.19 (7.33-7.43)
[2022-09-18 22:04] LABS: Fractionated Inspired Oxygen 21
--- NOTE | 2022-09-18 22:17 | ED_ITS ---
HPI - SOB/Dyspnea General Chief Complaint: Shortness of Breath/Dyspnea Stated Complaint: difficulty breathing Time Seen by Provider: 09/18/22 21:44 Source: patient Mode of arrival: EMS Limitations: no limitations History of Present Illness HPI Narrative: Patient is a 72-year-old female history of COPD, insulin-dependent diabetes, atrial flutter, hypothyroid, hyperlipidemia presenting today with shortness of breath and decreasing mental status. She was seen evaluated here yesterday for presumed COPD exacerbation. She was having increasing shortness of breath throughout the day yesterday she complained of a sore throat she had a nonproductive cough. She would multiple nebulizers in the ED including Solu-Me drol she low O2 sats but was feeling better and apparently wanted to go home. She presents again today reports that she is been sleeping the whole time. She still complains of sore throat and some shortness of breath. Today she is not hypoxic she has no sign of respiratory distress. She is drowsy but able to follow some commands and answer questions. She denies any chest pain or palpitations. She would blood cultures from yesterday which were negative. He denies any abdominal pain nausea vomiting. glucose is read as high. Related Data Home Medications Medication Instructions Recorded Confirmed escitalopram oxalate 20 mg tablet 40 mg PO DAILY ##0 03/16/10 06/30/22 (Lexapro) omeprazole 20 mg capsule,delayed 20 mg PO DAILY ##0 03/16/10 06/30/22 release cevimeline 30 mg capsule 10 mg PO TID 06/24/18 06/30/22 insulin aspart U-100 100 unit/mL 4 - 6 unit SUBCUT AC 06/24/18 06/30/22 (3 mL) subcutaneous pen (Novolog Flexpen U-100 Insulin aspart) lisinopril 2.5 mg tablet 2.5 mg PO DAILY 06/24/18 06/30/22 atorvastatin 20 mg tablet 20 mg PO DAILY 01/03/19 06/30/22 insulin glargine 100 unit/mL (3 25 unit SUBCUT BEDTIME 01/03/19 06/30/22 mL) subcutaneous pen (Lantus Solostar U-100 Insulin) bupropion HCl 150 mg 24 hr tablet, 150 mg PO QAM 03/22/19 06/30/22 extended release furosemide 40 mg tablet 20 mg PO DAILY 03/22/19 06/30/22 potassium chloride 10 mEq 10 meq PO DAILY 03/22/19 06/30/22 capsule,extended release alprazolam 0.5 mg tablet 0.5 mg PO DAILY PRN Anxiety 12/13/20 06/30/22 gabapentin 600 mg tablet 1,200 mg PO BEDTIME 12/13/20 06/30/22 hydroxyzine HCl 25 mg tablet 25 mg PO TID 12/13/20 06/30/22 olanzapine 2.5 mg tablet 2.5 mg PO BEDTIME 12/13/20 06/30/22 ascorbic acid (vitamin C) 500 mg 500 mg PO DAILY 06/30/22 06/30/22 tablet (Vitamin C) cholecalciferol (vitamin D3) 25 25 mcg PO DAILY 06/30/22 06/30/22 mcg (1,000 unit) tablet (Vitamin D3) vitamin B complex 1 tab PO DAILY 06/30/22 06/30/22 Previous Rx's Medication Instructions Recorded hydrocodone 5 mg-acetaminophen 325 1 tab PO TID #0 tabs 06/27/18 mg tablet morphine 15 mg tablet,extended 15 mg PO Q8H #30 tabs 01/09/19 release (MS Contin) levothyroxine 125 mcg capsule 125 mcg PO DAILY #30 caps 03/26/19 ondansetron 4 mg disintegrating 4 mg PO Q6H PRN nausea and 04/28/19 tablet vomiting #20 tabs cyclobenzaprine 10 mg tablet 10 mg PO BEDTIME #10 tabs 02/12/20 prednisone 20 mg tablet 60 mg PO DAILY 5 days #15 tabs 09/17/22 Allergies Allergy/AdvReac Type Severity Reaction Status Date / Time sulfamethoxazole Allergy Verified 09/18/22 20:53 [From Bactrim] trimethoprim [From Bactrim] Allergy Verified 09/18/22 20:53 Review of Systems Review of Systems ROS Unobtainable: All systems reviewed & are unremarkable except as noted in HPI and below Patient History Medical History Depression Diabetes Fibromyalgia GERD (gastroesophageal reflux disease) Hyperlipidemia Hypothyroidism Meningioma Restless leg syndrome Sjogren's disease Sleep apnea Spinal stenosis, lumbar Venous stasis dermatitis of both lower extremities Surgical History H/O total hysterectomy History of cholecystectomy History of lymph node biopsy History of vein stripping Family History Mother Bowel obstruction Father Psychiatric disorder Brother Hypertension Sister Cancer Social History household members: spouse Smoking Status: Current some day smoker alcohol intake: never substance use type: does not use Smoking Status: Current some day smoker tobacco type: cigarettes alcohol intake frequency: holidays/special occasions only Substance Use Type: does not use Exam Initial Vital Signs Initial Vital Signs: Vital Signs Temperature 97.5 F L 09/18/22 20:20 Pulse Rate 104 H 09/18/22 20:20 Respiratory Rate 18 09/18/22 20:20 Blood Pressure 146/64 H 09/18/22 20:20 Pulse Oximetry 96 09/18/22 20:20 Oxygen Delivery Method 09/18/22 20:20 GENERAL: Alert sleepy 72-year-old female arousable HEENT: Head atraumatic,EOMI, pupils reactive, face symmetric, [moist] mucous membranes PHARYNX; minimal erythema no tonsillar exudate no uvula swelling or deviation CARDIOVASCULAR: Regular rate and rhythm without murmurs, rubs or gallops. RESPIRATORY: clear breath sounds bilaterally no wheezes rales or rhonchi ABDOMEN: Soft, nontender. Normoactive bowel sounds all 4 quadrants. No guarding or rebound. EXTREMITIES: Normal range of motion, no clubbing or edema. Neurovascularly intact NEUROLOGICAL: Clear speech medication aid strength equal bilaterally able to move legs SKIN: Warm, dry, no laceration, no petechiae, no rashes or lesions. Course Orders Ordered: ED Orders 09/18/22 20:40 Complete Blood Count AUTO DIFF Stat Comprehensive Metabolic Panel Stat Ketones (Beta-Hydroxybutyrate) Stat Lactate (Lactic Acid) Stat NT-proBNP (BNP-Adult 18+) Stat Procalcitonin Stat Prothrombin Time INR Stat Troponin I Stat 09/18/22 20:52 XR chest 1V Stat EKG-12 Lead Stat RT Consult Eval and Treat NOW 09/18/22 21:44 VBG [Venous Blood Gas] Stat 09/18/22 22:45 Respiratory Panel (Film Array) Stat Acetaminophen (Acetaminophen 325 Mg Tablet) 650 mg PO Q6H PRN PRN Reason: Fever/Mild Pain (1-3) Hydrocodone Bitart/Acetaminophen (Hydrocodone/Acet 5/325 Tablet) 1 tab PO TID [facility] Atorvastatin Calcium (Atorvastatin 20 Mg Tablet) 20 mg PO DAILY [facility] Bupropion HCl (Bupropion Xl 150 Mg Tab) 150 mg PO DAILY [facility] Enoxaparin Sodium (Enoxaparin 40 Mg/0.4 Ml Syringe) 40 mg SUBCUT DAILY [facility] Escitalopram Oxalate (Escitalopram 10 Mg Tablet) 40 mg PO DAILY [facility] Insulin Human Regular 100 unit (/ Sodium Chloride) 100 mls @ 6 mls/hr IV TITRATE FRANCISCO JAVIER; Protocol Last Admin: 09/18/22 23:33 Dose: 6 unit/hr, 6 mls/hr Documented By: LUIS FERNANDO Co-signed By: LUCHO Levothyroxine Sodium (Levothyroxine 112 Mcg Tablet) 112 mcg PO 0600 [facility] Lisinopril (Lisinopril 5 Mg Tablet) 2.5 mg PO DAILY [facility] Naloxone HCl (Naloxone 0.4 Mg/Ml Vial) 0.2 mg IV Q2MIN PRN PRN Reason: Opiate Reversal Olanzapine (Olanzapine 2.5 Mg Tablet) 2.5 mg PO BEDTIME [facility] Ondansetron HCl (Ondansetron 4 Mg/2 Ml Inj) 4 mg IV Q4HR PRN PRN Reason: Nausea And Vomiting Discontinued Medications Diltiazem HCl (Diltiazem 5 Mg/Ml Sdv) 10 mg IV NOW ONE Stop: 09/18/22 23:48 Last Admin: 09/18/22 23:55 Dose: 10 mg Documented By: LUIS FERNANDO Sodium Chloride (Normal Saline 0.9%) 1,000 mls @ 1,000 mls/hr IV BOLUS ONE Stop: 09/18/22 23:13 Last Infusion: 09/18/22 23:40 Dose: 0 mls/hr Documented By: LUIS FERNANDO Admin: 09/18/22 21:05 Dose: 1,000 mls/hr Documented By: LUIS FERNANDO Vital Signs Vital signs: Vital Signs - 8 hr 09/18/22 20:20 09/18/22 20:51 09/18/22 21:00 Temperature 97.5 F L Pulse Rate 104 H 102 H 99 H Respiratory Rate 18 23 Blood Pressure 146/64 H Pulse Oximetry 96 96 97 Oxygen Delivery Method Room Air 09/18/22 21:30 09/18/22 21:47 09/18/22 21:47 Temperature Pulse Rate 100 H 104 H Respiratory Rate 29 H 26 H Blood Pressure 139/72 Pulse Oximetry 96 Oxygen Delivery Method 09/18/22 22:00 09/18/22 22:46 09/18/22 23:00 Temperature Pulse Rate 105 H 145 H 146 H Respiratory Rate 43 H 19 28 H Blood Pressure Pulse Oximetry 96 92 97 Oxygen Delivery Method MDM - SOB/Dyspnea Lab Data 09/18/22 20:40 09/18/22 20:40 Labs: Lab Results 09/18/22 09/18/22 09/18/22 Range/Units 20:40 20:40 20:40 WBC 11.1 H D (4.5-11.0) X10^3/uL RBC 5.45 H (4.0-5.2) X10^6/uL Hgb 15.6 (12.0-16.0) g/dL Hct 47.6 H (36-46) % MCV 87.4 (80-100) fL MCH 28.6 (26-34) PG MCHC 32.8 (30-36) % RDW 13.4 (11.6-14.8) % Plt Count 318 (150-400) X10^3/uL Neut % (Auto) 78.7 H D (50-75) % Lymph % (Auto) 14.4 L (25-40) % [place] % (Auto) 6.4 (3-14) % Eos % (Auto) 0.2 L (2-4) % Baso % (Auto) 0.3 (0-2) % Neut # (Auto) 8800 H (8429-2964) /uL Lymph # (Auto) 1600 (3592-6634) /uL [place] # (Auto) 700 (0-900) /uL Eos # (Auto) 0 (0-450) /uL Baso # (Auto) 0 (0-100) /uL PT 11.8 (10.1-12.7) SECONDS INR 1.0 (0.9-1.3) VBG pH (7.33-7.43) VBG pCO2 (45-50) mmHg VBG pO2 (35-45) mmHg VBG HCO3 (24-28) mmol/L VBG Total CO2 (24-29) mmol/L VBG O2 Saturation (70-75) % VBG Base Excess (0-4) mmol/L FiO2 Sodium 132 L (137-145) mmol/L Potassium 5.4 H D (3.4-5.1) mmol/L Chloride 92 L (98-107) mmol/L Carbon Dioxide 10 L (22-32) mmol/L BUN 34 H (7-17) mg/dL Creatinine 0.94 (0.52-1.04) mg/dL Estimated GFR > 60 (>60) mL/min BUN/Creatinine Ratio 36.2 H (6-22) Glucose 581 H* D (80-110) mg/dL Hemoglobin A1c (4.0-6.0) % Lactate (0.7-2.1) mmol/L Calcium 9.5 (8.4-10.2) mg/dL Total Bilirubin 0.7 (0.2-1.3) mg/dL AST 27 (14-36) IU/L ALT 28 (<35) IU/L Alkaline Phosphatase 104 (38-126) U/L Troponin I < 0.012 (0.01-0.034) ng/mL NT-Pro-B Natriuret Pep 445 H (<125) pg/mL Total Protein 9.1 H (6.3-8.2) g/dL Albumin 4.7 (3.5-5.0) g/dL Globulin 4.4 H (1.7-4.1) g/dL Albumin/Globulin Ratio 1.1 (1.0-2.8) Procalcitonin (<0.5) ng/mL Ketones (<0.27) mmol/L Chlamy pneumoniae PCR (Not Detect) Adenovirus (PCR) (Not Detect) B. pertussis DNA (PCR) (Not Detecte) B.parapertussis DNA PCR (Not Detecte) Coronavirus OC43 (PCR) (Not Detect) Coronavirus HKU1 (PCR) (Not Detect) Coronavirus 229E (PCR) (Not Detect) SARS-CoV-2 (PCR) (Not Detecte) Coronavirus NL63 (PCR) (Not Detect) Human Metapneumovir PCR (Not Detect) Influenza Type A (PCR) (Not Detect) Influenza Type B (PCR) (Not Detect) M. pneumoniae (PCR) (Not Detect) Parainfluenza 1 (PCR) (Not Detect) Parainfluenza 2 (PCR) (Not Detect) Parainfluenza 3 (PCR) (Not Detect) Parainfluenza 4 (PCR) (Not Detect) RSV (PCR) (Not Detect) Entero/Rhino (PCR) (Not Detect) 09/18/22 09/18/22 09/18/22 Range/Units 20:40 20:40 20:40 WBC (4.5-11.0) X10^3/uL RBC (4.0-5.2) X10^6/uL Hgb (12.0-16.0) g/dL Hct (36-46) % MCV (80-100) fL MCH (26-34) PG MCHC (30-36) % RDW (11.6-14.8) % Plt Count (150-400) X10^3/uL Neut % (Auto) (50-75) % Lymph % (Auto) (25-40) % [place] % (Auto) (3-14) % Eos % (Auto) (2-4) % Baso % (Auto) (0-2) % Neut # (Auto) (5437-0787) /uL Lymph # (Auto) (5087-9096) /uL [place] # (Auto) (0-900) /uL Eos # (Auto) (0-450) /uL Baso # (Auto) (0-100) /uL PT (10.1-12.7) SECONDS INR (0.9-1.3) VBG pH (7.33-7.43) VBG pCO2 (45-50) mmHg VBG pO2 (35-45) mmHg VBG HCO3 (24-28) mmol/L VBG Total CO2 (24-29) mmol/L VBG O2 Saturation (70-75) % VBG Base Excess (0-4) mmol/L FiO2 Sodium (137-145) mmol/L Potassium (3.4-5.1) mmol/L Chloride (98-107) mmol/L Carbon Dioxide (22-32) mmol/L BUN (7-17) mg/dL Creatinine (0.52-1.04) mg/dL Estimated GFR (>60) mL/min BUN/Creatinine Ratio (6-22) Glucose (80-110) mg/dL Hemoglobin A1c (4.0-6.0) % Lactate 2.4 H (0.7-2.1) mmol/L Calcium (8.4-10.2) mg/dL Total Bilirubin (0.2-1.3) mg/dL AST (14-36) IU/L ALT (<35) IU/L Alkaline Phosphatase (38-126) U/L Troponin I (0.01-0.034) ng/mL NT-Pro-B Natriuret Pep (<125) pg/mL Total Protein (6.3-8.2) g/dL Albumin (3.5-5.0) g/dL Globulin (1.7-4.1) g/dL Albumin/Globulin Ratio (1.0-2.8) Procalcitonin 0.36 (<0.5) ng/mL Ketones 10.11 H (<0.27) mmol/L Chlamy pneumoniae PCR (Not Detect) Adenovirus (PCR) (Not Detect) B. pertussis DNA (PCR) (Not Detecte) B.parapertussis DNA PCR (Not Detecte) Coronavirus OC43 (PCR) (Not Detect) Coronavirus HKU1 (PCR) (Not Detect) Coronavirus 229E (PCR) (Not Detect) SARS-CoV-2 (PCR) (Not Detecte) Coronavirus NL63 (PCR) (Not Detect) Human Metapneumovir PCR (Not Detect) Influenza Type A (PCR) (Not Detect) Influenza Type B (PCR) (Not Detect) M. pneumoniae (PCR) (Not Detect) Parainfluenza 1 (PCR) (Not Detect) Parainfluenza 2 (PCR) (Not Detect) Parainfluenza 3 (PCR) (Not Detect) Parainfluenza 4 (PCR) (Not Detect) RSV (PCR) (Not Detect) Entero/Rhino (PCR) (Not Detect) 09/18/22 09/18/22 09/18/22 Range/Units 20:40 21:44 22:45 WBC (4.5-11.0) X10^3/uL RBC (4.0-5.2) X10^6/uL Hgb (12.0-16.0) g/dL Hct (36-46) % MCV (80-100) fL MCH (26-34) PG MCHC (30-36) % RDW (11.6-14.8) % Plt Count (150-400) X10^3/uL Neut % (Auto) (50-75) % Lymph % (Auto) (25-40) % [place] % (Auto) (3-14) % Eos % (Auto) (2-4) % Baso % (Auto) (0-2) % Neut # (Auto) (4192-4602) /uL Lymph # (Auto) (1793-5496) /uL [place] # (Auto) (0-900) /uL Eos # (Auto) (0-450) /uL Baso # (Auto) (0-100) /uL PT (10.1-12.7) SECONDS INR (0.9-1.3) VBG pH 7.19 L* (7.33-7.43) VBG pCO2 31.8 L (45-50) mmHg VBG pO2 54 H (35-45) mmHg VBG HCO3 12 L (24-28) mmol/L VBG Total CO2 13 L (24-29) mmol/L VBG O2 Saturation 80 H (70-75) % VBG Base Excess -16.0 L (0-4) mmol/L FiO2 21 Sodium (137-145) mmol/L Potassium (3.4-5.1) mmol/L Chloride (98-107) mmol/L Carbon Dioxide (22-32) mmol/L BUN (7-17) mg/dL Creatinine (0.52-1.04) mg/dL Estimated GFR (>60) mL/min BUN/Creatinine Ratio (6-22) Glucose (80-110) mg/dL Hemoglobin A1c 9.5 H (4.0-6.0) % Lactate (0.7-2.1) mmol/L Calcium (8.4-10.2) mg/dL Total Bilirubin (0.2-1.3) mg/dL AST (14-36) IU/L ALT (<35) IU/L Alkaline Phosphatase (38-126) U/L Troponin I (0.01-0.034) ng/mL NT-Pro-B Natriuret Pep (<125) pg/mL Total Protein (6.3-8.2) g/dL Albumin (3.5-5.0) g/dL Globulin (1.7-4.1) g/dL Albumin/Globulin Ratio (1.0-2.8) Procalcitonin (<0.5) ng/mL Ketones (<0.27) mmol/L Chlamy pneumoniae PCR Not detected (Not Detect) Adenovirus (PCR) Not detected (Not Detect) B. pertussis DNA (PCR) Not detected (Not Detecte) B.parapertussis DNA PCR Not detected (Not Detecte) Coronavirus OC43 (PCR) Detected H (Not Detect) Coronavirus HKU1 (PCR) Not detected (Not Detect) Coronavirus 229E (PCR) Not detected (Not Detect) SARS-CoV-2 (PCR) Not detected (Not Detecte) Coronavirus NL63 (PCR) Not detected (Not Detect) Human Metapneumovir PCR Not detected (Not Detect) Influenza Type A (PCR) Not detected (Not Detect) Influenza Type B (PCR) Not detected (Not Detect) M. pneumoniae (PCR) Not detected (Not Detect) Parainfluenza 1 (PCR) Not detected (Not Detect) Parainfluenza 2 (PCR) Not detected (Not Detect) Parainfluenza 3 (PCR) Not detected (Not Detect) Parainfluenza 4 (PCR) Not detected (Not Detect) RSV (PCR) Not detected (Not Detect) Entero/Rhino (PCR) Not detected (Not Detect) Point of Care Testing Rapid Strep A Negative Imaging Data Chest x-ray: Radiologist's Impression: Signed Patient: Alissa Kirby MR#: [id number] : 1950 Acct:[id number] Age/Sex: 72 / F Date of Service: 09/18/22 Loc: 90B-1 Accession Number: [id number] ?? Procedure: XR chest 1V Ordering Provider: Karina Ba D.O. PROCEDURE:? XR CHEST 1V ? INDICATIONS:? Shortness of breath ? TECHNIQUE:? One view of the chest was acquired.? ? COMPARISON:? [facility], CR, XR CHEST 1V, 09/17/2022, 15:51. ? FINDINGS:? ? Surgical changes and devices:? None.? ? Lungs and pleura:? There is hyperinflation of the lungs with flattening of the hemidiaphragms compatible with COPD.? No acute consolidation.? No pleural effusions or pneumothorax.? ? Mediastinum:? Mediastinal contours appear normal.? Heart size is normal.? ? Bones and chest wall:? No suspicious bony lesions.? Overlying soft tissues appear unremarkable.? ? IMPRESSION:? ? 1. No acute cardiopulmonary disease. ? 2. Findings compatible with COPD redemonstrated. ? ? Dictated by: Cullen Knox M.D. on 09/18/2022 at 23:33 ? ? Approved by: Cullen Knox M.D. on 09/18/2022 at 23:33 ? ECG Data Interpretation: Normal sinus rhythm rate 99 IA interval 208 QRS [address] changes similar to previous EKG from yesterday EKG 2. Atrial flutter 1-2 rate 145 MDM Narrative Medical decision making narrative: Patient complaining of shortness of breath however she has no dyspnea hypoxia or pneumonia on her x-ray cause of shortness of breath. Respiratory panel does show coronavirus OC43. She is not requiring any intervention for her shortness of breath she is certainly not tachypneic. She really is having some decreasing mental status glucose is found to be elevated at 581 with an anion gap of 30 and a pH is 7.1. This is consistent with DKA. She is given 1 L normal saline insulin drip is ordered was mild delay in starting it. Repeat blood work showed decreasing bicarb however icing this is secondary to delay. She does become l ittle bit more awake. She is a viral infection, procalcitonin minimally elevated 0.36 and lactic acid elevated at 2.4 which improved 2.1. Bah catheter was placed, unfortunately urinalysis was not done. While Bah catheter was being placed she had an episode of atrial fibrillation probably 2:1 block. She was given 10 mg of diltiazem quickly converted. Bonny Anders patient's symptoms test results accepts patient to the ICU. Discharge Plan Departure Patient Disposition: Admitted As Inpatient Clinical Impression: DKA, type 1 Admit Date/Time: 09/18/22 23:16 Admit Provider: Radha Anders
[2022-09-18 22:55] LABS: Reflexed Lactate in 2 Hours Y
[2022-09-18] MEDS: INSULIN REGULAR, HUMAN 100 UNIT in SODIUM CHLORIDE 0.9% 100 ML 6 UNIT IV (23:33)
[2022-09-18 23:40] LABS: Adenovirus Not Detected (Not Detect); B. parapertussis Not Detected (Not Detecte); Bordetella pertussis Not Detected (Not Detecte); Chlamydophila pneumoniae Not Detected (Not Detect); Coronavirus 229E Not Detected (Not Detect); Coronavirus HKU1 Not Detected (Not Detect); Coronavirus NL 63 Not Detected (Not Detect); Coronavirus OC43 Detected (Not Detect); Human Metapneumovirus Not Detected (Not Detect); Human Rhinovirus/Enterovirus Not Detected (Not Detect); Influenza A Not Detected (Not Detect); Influenza B Not Detected (Not Detect); Mycoplasma pneumoniae Not Detected (Not Detect); Parainfluenza Virus 1 Not Detected (Not Detect); Parainfluenza Virus 2 Not Detected (Not Detect); Parainfluenza Virus 3 Not Detected (Not Detect); Parainfluenza Virus 4 Not Detected (Not Detect); Respiratory Syncytial Virus Not Detected (Not Detect); SARS- CoV-2 Not Detected (Not Detecte)
[2022-09-18 23:48] LABS: Procalcitonin 0.36 ng/mL (<0.5)
[2022-09-18] MEDS: dilTIAZem 5 MG/ML SDV 10 MG IV (23:55)
[2022-09-19] VITALS (33 sets, daily range): BP systolic 98–133; BP diastolic 50–63; PULSE 78–107; RESP 12–51; TEMP 36.6–37.1; O2SAT 91–98; BMI 25.2
[2022-09-19 00:07] LABS: BUN Creatinine Ratio 38.9 (6-22); Blood Urea Nitrogen 35 mg/dL (7-17); Calcium 8.7 mg/dL (8.4-10.2); Chloride 98 mmol/L (98-107); Estimated Glomerular Filt Rate > 60 mL/min (>60); HEMOLYSIS < 15 (0-50); Lactate 2HR (Lactic Acid Rflx) 2.1 mmol/L (0.7-2.1); Sodium 133 mmol/L (137-145)
[2022-09-19 00:08] LABS: Potassium 5.4 mmol/L (3.4-5.1)
[2022-09-19 00:10] LABS: Carbon Dioxide 6 mmol/L (22-32)
[2022-09-19 00:11] LABS: Glucose 535 mg/dL (80-110)
[2022-09-19 00:20] LABS: Hemoglobin A1C% w Est Avg Glu 9.5 % (4.0-6.0)
--- NOTE | 2022-09-19 00:53 | P.HP_ITS ---
History of Present Illness History of Present Illness Date Patient Seen: 09/19/22 Time Patient Seen: 00:53 Chief complaint: difficulty breathing Narrative: Alissa Kirby is a 72-year-old female smoker with COPD, Sjogren's disease, insulin-dependent diabetes, atrial flutter, hypothyroid, hyperlipidemia presented to the ED today with shortness of breath and decreasing mental status.? She was seen evaluated in the ED yesterday for a presumed COPD exacerbation.? She was having increasing shortness of breath throughout the day and complained of a sore throat and nonproductive cough. She was treated with nebulizers and solumedrol yesterday, felt better and was discharged home. ??She presentrdf again today reports that she is been sleeping the whole ti me.? She still complains of sore throat and some shortness of breath.? Today she is not hypoxic with no sign of respiratory distress.? She is drowsy but able to follow some commands and answer some questions.? She does endorse having nausea, no vomiting, denies any chest pain or palpitations.? Blood cultures drawn from yesterday were negative. Chest x-rays done yesterday and today were both negative for any acute cardiopulmonary process. While in the emergency department she did develop an atrial flutter which was sustained in the 145 range for a period and was administered IV diltiazem which apparently converted her. She is currently afebrile, blood pressure 132/60, heart rate 107, respiratory rate 22, oxygen saturation of 96% on room air she weighs 73 kg with a BMI of 31.3. She is a mildly elevated white count of 11.1 likely stress-induced mild left shift of 8800, VBG pH was 7.19 with a pCO2 of 31.8 PO2 was 54 bicarb 12, sodium 133 potassium 5.4 chloride 98 bicarb 6 (insulin drip had not been started) BUN 35 glucose 535 her A1c is 9.5 proBNP 445 ketones were positive at 10.11 and Coronavirus OC 43 was detected however COVID-19 PCR is negative. Patient History Medical History Depression Diabetes Fibromyalgia GERD (gastroesophageal reflux disease) Hyperlipidemia Hypothyroidism Meningioma Restless leg syndrome Sjogren's disease Sleep apnea Spinal stenosis, lumbar Venous stasis dermatitis of both lower extremities Surgical History H/O total hysterectomy History of cholecystectomy History of lymph node biopsy History of vein stripping Family & Social History Family History Mother Bowel obstruction Father Psychiatric disorder Brother Hypertension Sister Cancer Social History: household members spouse Safety & Behavioral: Feels Safe in Current Yes Environment Been Physically Hurt or No Threatened By a Person Tobacco & Substance use: Tobacco type cigarettes Smoking Status Current some day smoker alcohol intake never alcohol intake frequency holiday/special occasion Substance Use Type does not use Meds Home Medications and Allergies Home Medications Medication Instructions Recorded Confirmed Type escitalopram oxalate 20 mg tablet 40 mg PO DAILY ##0 03/16/10 06/30/22 History (Lexapro) omeprazole 20 mg capsule,delayed 20 mg PO DAILY ##0 03/16/10 06/30/22 History release cevimeline 30 mg capsule 10 mg PO TID 06/24/18 06/30/22 History insulin aspart U-100 100 unit/mL 4 - 6 unit SUBCUT AC 06/24/18 06/30/22 History (3 mL) subcutaneous pen (Novolog Flexpen U-100 Insulin aspart) lisinopril 2.5 mg tablet 2.5 mg PO DAILY 06/24/18 06/30/22 History hydrocodone 5 mg-acetaminophen 325 1 tab PO TID #0 tabs 06/27/18 06/30/22 Rx mg tablet atorvastatin 20 mg tablet 20 mg PO DAILY 01/03/19 06/30/22 History insulin glargine 100 unit/mL (3 25 unit SUBCUT BEDTIME 01/03/19 06/30/22 History mL) subcutaneous pen (Lantus Solostar U-100 Insulin) morphine 15 mg tablet,extended 15 mg PO Q8H #30 tabs 01/09/19 06/30/22 Rx release (MS Contin) bupropion HCl 150 mg 24 hr tablet, 150 mg PO QAM 03/22/19 06/30/22 History extended release furosemide 40 mg tablet 20 mg PO DAILY 03/22/19 06/30/22 History potassium chloride 10 mEq 10 meq PO DAILY 03/22/19 06/30/22 History capsule,extended release levothyroxine 125 mcg capsule 125 mcg PO DAILY #30 caps 03/26/19 06/30/22 Rx ondansetron 4 mg disintegrating 4 mg PO Q6H PRN nausea and 04/28/19 06/30/22 Rx tablet vomiting #20 tabs cyclobenzaprine 10 mg tablet 10 mg PO BEDTIME #10 tabs 02/12/20 06/30/22 Rx alprazolam 0.5 mg tablet 0.5 mg PO DAILY PRN Anxiety 12/13/20 06/30/22 History gabapentin 600 mg tablet 1,200 mg PO BEDTIME 12/13/20 06/30/22 History hydroxyzine HCl 25 mg tablet 25 mg PO TID 12/13/20 06/30/22 History olanzapine 2.5 mg tablet 2.5 mg PO BEDTIME 12/13/20 06/30/22 History ascorbic acid (vitamin C) 500 mg 500 mg PO DAILY 06/30/22 06/30/22 History tablet (Vitamin C) cholecalciferol (vitamin D3) 25 25 mcg PO DAILY 06/30/22 06/30/22 History mcg (1,000 unit) tablet (Vitamin D3) vitamin B complex 1 tab PO DAILY 06/30/22 06/30/22 History prednisone 20 mg tablet 60 mg PO DAILY 5 days #15 tabs 09/17/22 Rx Allergies Allergy/AdvReac Type Severity Reaction Status Date / Time sulfamethoxazole Allergy Verified 09/18/22 20:53 [From Bactrim] trimethoprim [From Bactrim] Allergy Verified 09/18/22 20:53 Review of Systems Review of Systems ROS: Yes unobtainable due to mental status Exam Vital Signs (past 8 hours): - 09/18/22 20:20 09/18/22 20:51 09/18/22 21:00 Temperature 97.5 F L Pulse Rate 104 H 102 H 99 H Respiratory Rate 18 23 Blood Pressure 146/64 H Pulse Oximetry 96 96 97 Oxygen Delivery Method Room Air 09/18/22 21:30 09/18/22 21:47 09/18/22 21:47 Temperature Pulse Rate 100 H 104 H Respiratory Rate 29 H 26 H Blood Pressure 139/72 Pulse Oximetry 96 Oxygen Delivery Method 09/18/22 22:00 09/18/22 22:46 09/18/22 23:00 Temperature Pulse Rate 105 H 145 H 146 H Respiratory Rate 43 H 19 28 H Blood Pressure Pulse Oximetry 96 92 97 Oxygen Delivery Method 09/18/22 23:30 09/18/22 23:55 09/19/22 00:35 Temperature 98.1 F Pulse Rate 145 H 145 H 107 H Respiratory Rate 21 20 Blood Pressure 135/64 132/60 Pulse Oximetry 97 96 Oxygen Delivery Method 09/18/22 23:54 09/18/22 23:54 09/19/22 00:00 Temperature Pulse Rate 148 H Respiratory Rate 36 H Blood Pressure 135/64 112/56 L Pulse Oximetry 96 Oxygen Delivery Method 09/19/22 00:00 09/19/22 00:38 09/19/22 00:38 Temperature Pulse Rate 93 H 107 H Respiratory Rate 20 22 Blood Pressure 132/60 Pulse Oximetry 96 96 Oxygen Delivery Method Oxygen Delivery Method Room Air Narrative Exam Narrative: Gen: Alert, oriented, ill-appearing but nontoxic appearing 72 y.o. female very lethargic HEENT: normocephalic, atraumatic, conjunctiva clear, sclera non-icteric, oral mucosa pink and moist Neck: supple, full ROM, no JVD, trachea is midline Resp: Lungs CTA, non-labored breathing CV: RRR, no murmur or rubs Abd: soft, non-tender, normoactive BTs Skin: no lesions or rashes, dry and intact Neuro: Alert and oriented X 4 w/no focal deficits. Speech soft but intellegible. Extremities: moves all 4 extremities, is ambulatory, negative Jennifer?s sign Psyche: depressed affect. Objective Labs 09/18/22 20:40 09/18/22 23:40 Labs: Laboratory Results - last 24 hr 09/18/22 09/18/22 09/18/22 20:40 20:40 20:40 WBC 11.1 H D RBC 5.45 H Hgb 15.6 Hct 47.6 H MCV 87.4 MCH 28.6 MCHC 32.8 RDW 13.4 Plt Count 318 Neut % (Auto) 78.7 H D Lymph % (Auto) 14.4 L Dewitt % (Auto) 6.4 Eos % (Auto) 0.2 L Baso % (Auto) 0.3 Neut # (Auto) 8800 H Lymph # (Auto) 1600 Dewitt # (Auto) 700 Eos # (Auto) 0 Baso # (Auto) 0 PT 11.8 INR 1.0 VBG pH VBG pCO2 VBG pO2 VBG HCO3 VBG Total CO2 VBG O2 Saturation VBG Base Excess FiO2 Sodium 132 L Potassium 5.4 H D Chloride 92 L Carbon Dioxide 10 L BUN 34 H Creatinine 0.94 Estimated GFR > 60 BUN/Creatinine Ratio 36.2 H Glucose 581 H* D Hemoglobin A1c Lactate Calcium 9.5 Total Bilirubin 0.7 AST 27 ALT 28 Alkaline Phosphatase 104 Troponin I < 0.012 NT-Pro-B Natriuret Pep 445 H Total Protein 9.1 H Albumin 4.7 Globulin 4.4 H Albumin/Globulin Ratio 1.1 Procalcitonin Ketones Chlamy pneumoniae PCR Adenovirus (PCR) B. pertussis DNA (PCR) B.parapertussis DNA PCR Coronavirus OC43 (PCR) Coronavirus HKU1 (PCR) Coronavirus 229E (PCR) SARS-CoV-2 (PCR) Coronavirus NL63 (PCR) Human Metapneumovir PCR Influenza Type A (PCR) Influenza Type B (PCR) M. pneumoniae (PCR) Parainfluenza 1 (PCR) Parainfluenza 2 (PCR) Parainfluenza 3 (PCR) Parainfluenza 4 (PCR) RSV (PCR) Entero/Rhino (PCR) 09/18/22 09/18/22 09/18/22 20:40 20:40 20:40 WBC RBC Hgb Hct MCV MCH MCHC RDW Plt Count Neut % (Auto) Lymph % (Auto) Dewitt % (Auto) Eos % (Auto) Baso % (Auto) Neut # (Auto) Lymph # (Auto) Dewitt # (Auto) Eos # (Auto) Baso # (Auto) PT INR VBG pH VBG pCO2 VBG pO2 VBG HCO3 VBG Total CO2 VBG O2 Saturation VBG Base Excess FiO2 Sodium Potassium Chloride Carbon Dioxide BUN Creatinine Estimated GFR BUN/Creatinine Ratio Glucose Hemoglobin A1c Lactate 2.4 H Calcium Total Bilirubin AST ALT Alkaline Phosphatase Troponin I NT-Pro-B Natriuret Pep Total Protein Albumin Globulin Albumin/Globulin Ratio Procalcitonin 0.36 Ketones 10.11 H Chlamy pneumoniae PCR Adenovirus (PCR) B. pertussis DNA (PCR) B.parapertussis DNA PCR Coronavirus OC43 (PCR) Coronavirus HKU1 (PCR) Coronavirus 229E (PCR) SARS-CoV-2 (PCR) Coronavirus NL63 (PCR) Human Metapneumovir PCR Influenza Type A (PCR) Influenza Type B (PCR) M. pneumoniae (PCR) Parainfluenza 1 (PCR) Parainfluenza 2 (PCR) Parainfluenza 3 (PCR) Parainfluenza 4 (PCR) RSV (PCR) Entero/Rhino (PCR) 09/18/22 09/18/22 09/18/22 20:40 21:44 22:45 WBC RBC Hgb Hct MCV MCH MCHC RDW Plt Count Neut % (Auto) Lymph % (Auto) Dewitt % (Auto) Eos % (Auto) Baso % (Auto) Neut # (Auto) Lymph # (Auto) Dewitt # (Auto) Eos # (Auto) Baso # (Auto) PT INR VBG pH 7.19 L* VBG pCO2 31.8 L VBG pO2 54 H VBG HCO3 12 L VBG Total CO2 13 L VBG O2 Saturation 80 H VBG Base Excess -16.0 L FiO2 21 Sodium Potassium Chloride Carbon Dioxide BUN Creatinine Estimated GFR BUN/Creatinine Ratio Glucose Hemoglobin A1c 9.5 H Lactate Calcium Total Bilirubin AST ALT Alkaline Phosphatase Troponin I NT-Pro-B Natriuret Pep Total Protein Albumin Globulin Albumin/Globulin Ratio Procalcitonin Ketones Chlamy pneumoniae PCR Not detected Adenovirus (PCR) Not detected B. pertussis DNA (PCR) Not detected B.parapertussis DNA PCR Not detected Coronavirus OC43 (PCR) Detected H Coronavirus HKU1 (PCR) Not detected Coronavirus 229E (PCR) Not detected SARS-CoV-2 (PCR) Not detected Coronavirus NL63 (PCR) Not detected Human Metapneumovir PCR Not detected Influenza Type A (PCR) Not detected Influenza Type B (PCR) Not detected M. pneumoniae (PCR) Not detected Parainfluenza 1 (PCR) Not detected Parainfluenza 2 (PCR) Not detected Parainfluenza 3 (PCR) Not detected Parainfluenza 4 (PCR) Not detected RSV (PCR) Not detected Entero/Rhino (PCR) Not detected 09/18/22 09/18/22 23:40 23:40 WBC RBC Hgb Hct MCV MCH MCHC RDW Plt Count Neut % (Auto) Lymph % (Auto) Dewitt % (Auto) Eos % (Auto) Baso % (Auto) Neut # (Auto) Lymph # (Auto) Dewitt # (Auto) Eos # (Auto) Baso # (Auto) PT INR VBG pH VBG pCO2 VBG pO2 VBG HCO3 VBG Total CO2 VBG O2 Saturation VBG Base Excess FiO2 Sodium 133 L Potassium 5.4 H Chloride 98 Carbon Dioxide 6 L* BUN 35 H Creatinine 0.90 Estimated GFR > 60 BUN/Creatinine Ratio 38.9 H Glucose 535 H* Hemoglobin A1c Lactate 2.1 Calcium 8.7 Total Bilirubin AST ALT Alkaline Phosphatase Troponin I NT-Pro-B Natriuret Pep Total Protein Albumin Globulin Albumin/Globulin Ratio Procalcitonin Ketones Chlamy pneumoniae PCR Adenovirus (PCR) B. pertussis DNA (PCR) B.parapertussis DNA PCR Coronavirus OC43 (PCR) Coronavirus HKU1 (PCR) Coronavirus 229E (PCR) SARS-CoV-2 (PCR) Coronavirus NL63 (PCR) Human Metapneumovir PCR Influenza Type A (PCR) Influenza Type B (PCR) M. pneumoniae (PCR) Parainfluenza 1 (PCR) Parainfluenza 2 (PCR) Parainfluenza 3 (PCR) Parainfluenza 4 (PCR) RSV (PCR) Entero/Rhino (PCR) Assessment & Plan Assessment & Plan narrative: Alissa Kirby is admitted to the inpatient ICU for further management of diabetic ketoacidosis with metabolic acidosis and for further workup of an acute respiratory infection versus UTI. Diabetic ketoacidosis, acute, present on admission * Admit to the ICU, tele-Solutions Development Analyst notified * Insulin drip was started in the emergency department just prior to the patient arriving to the floor and will be maintained on this per protocol * BMPs q.4 hours * A1c is 9.5 * LR at 150ml/hour per ICU tele-[employer] Analyst Leukocytosis, unknown if infectious * She was treated in the ED for a COPD exacerbation yesterday * Start doxycycline 100 mg IV b.i.d. and deescalate if no source of infection found Hx of elevated SPEP * Being followed by Dr. Rankin, oncology * Has a mass over left eye * Hx of meningioma Hypothyroidism, chronic * Continue home dose of levothryoxine 112 mcg Sjogren's disease, chronic * Continue home dose of pilacarpine 5 mg po tid * She normally takes Cevimeline 30 mg, unsure if taking and will need to confirm in the am Bipolar, chronic * Continue home doses of citalopram, buproprion and olanzapine when able to take po HLD, chronic * Continue home dose of atorvastatin, 20 mg po daily Other independent historians: none Discussion of results, plan of care with independent HCP/other ED provider Reviewed outside records: last outpatient record, ED records VTE Prophylaxis: Wells risk score 0 X Enoxaparin 40 mg subQ once daily Bilateral SCDs Patient is admitted to the inpatient intensive care service due to the severity of disease, risks of further disease progression and this stay is expected to exceed 2 midnights. FEN: IV fluids: LR at 150 ml/hour, diet: NPO, labs: CBC, C/BMP, liver enzymes, Mag, PT/INR Consultants Intercept ICU care and involvement in the patient?s care is appreciated. Social determinants of health: unknown at this time Dispo: eventual d/c to home Code status: Presumed to be full code, patient not able to declare preference Advanced care planning 0 minutes. [X] I have utilized all available immediate resources to obtain, update, or review of the patient's current medications VTE Deep Vein Thrombosis/Pulmonary Embolism Present on Admission: No MIPS - Admit I confirm the patient?s Advance Care Plan is present, Code status is documented, Surrogate decision maker is in patient?s record: Yes MIPS - DC The patient has current or prior documentation of left ventricular ejection fraction (LVEF) less than 40%, or moderate or severely depressed left ventricular systolic function.: No Time Spent With Patient Critical Care time: I spent a total of 35 minutes of critical care time on this patient's care today; this time is exclusive of procedural time.
[2022-09-19] MEDS: LACTATED RINGERS 1,000 ML 150 ML IV (01:00)
[2022-09-19] MEDS: DOXYCYCLINE 100 MG in SODIUM CHLORIDE 0.9% 100 ML IV ×2 (01:23→14:09)
[2022-09-19 02:23] LABS: RBC Urine 0-1/HPF (0-5/HPF); Squamous Epithelial Cell Urine 0-1 /HPF (0-5/HPF); WBC Urine None Seen (0-5/HPF)
[2022-09-19 02:24] LABS: Bacteria Urine None Seen
[2022-09-19 02:25] LABS: Culture Indicated Urine Cult Not Indicated
--- NOTE | 2022-09-19 03:57 | P.TELICUCN_ITS ---
History of Present Illness Consult details IF CAMERA ACTIVATED, patient seen via real-time interactive audiovisual communication: Camera activated Date Patient Seen: 09/19/22 Chief complaint: difficulty breathing Consent obtained for tele-surgical services asst care: Yes Patient Location: ICU Provider location (State): [place] Other participants/roles: TESSIE WERN Narrative: 72 y.o. female w/ active tobacco habit, Sjogren's disease, COPD, T2DM, KELLIE, bipolar disease, and hypothyroidism admitted for DKA. Was seen in ED day prior and started on Solumedrol. HgbA1c 9.5; glucose 535; BOHB 10.11, K+ 5.4, HCO3 11 PFSH Medical History (Updated 09/19/22 @ 04:21 by Phil Montes MD) Depression Diabetes Fibromyalgia GERD (gastroesophageal reflux disease) Hyperlipidemia Hypothyroidism Meningioma Restless leg syndrome Sjogren's disease Sleep apnea Spinal stenosis, lumbar Venous stasis dermatitis of both lower extremities Surgical History H/O total hysterectomy History of cholecystectomy History of lymph node biopsy History of vein stripping Family History Mother Bowel obstruction Father Psychiatric disorder Brother Hypertension Sister Cancer Social History household members: spouse Smoking Status: Current some day smoker alcohol intake: never substance use type: does not use Current Medications Current Medications Medications: Home Medications escitalopram oxalate 20 mg tablet (Lexapro) 40 mg PO DAILY ##0 03/16/10 [History Confirmed 06/30/22] omeprazole 20 mg capsule,delayed release 20 mg PO DAILY ##0 03/16/10 [History Confirmed 06/30/22] cevimeline 30 mg capsule 10 mg PO TID 06/24/18 [History Confirmed 06/30/22] insulin aspart U-100 100 unit/mL (3 mL) subcutaneous pen (Novolog Flexpen U-100 Insulin aspart) 4 - 6 unit SUBCUT AC 06/24/18 [History Confirmed 06/30/22] lisinopril 2.5 mg tablet 2.5 mg PO DAILY 06/24/18 [History Confirmed 06/30/22] hydrocodone 5 mg-acetaminophen 325 mg tablet 1 tab PO TID #0 tabs 06/27/18 [Rx Confirmed 06/30/22] atorvastatin 20 mg tablet 20 mg PO DAILY 01/03/19 [History Confirmed 06/30/22] insulin glargine 100 unit/mL (3 mL) subcutaneous pen (Lantus Solostar U-100 Insulin) 25 unit SUBCUT BEDTIME 01/03/19 [History Confirmed 06/30/22] morphine 15 mg tablet,extended release (MS Contin) 15 mg PO Q8H #30 tabs 01/09/19 [Rx Confirmed 06/30/22] bupropion HCl 150 mg 24 hr tablet, extended release 150 mg PO QAM 03/22/19 [Hist ory Confirmed 06/30/22] furosemide 40 mg tablet 20 mg PO DAILY 03/22/19 [History Confirmed 06/30/22] potassium chloride 10 mEq capsule,extended release 10 meq PO DAILY 03/22/19 [History Confirmed 06/30/22] levothyroxine 125 mcg capsule 125 mcg PO DAILY #30 caps 03/26/19 [Rx Confirmed 06/30/22] ondansetron 4 mg disintegrating tablet 4 mg PO Q6H PRN nausea and vomiting #20 tabs 04/28/19 [Rx Confirmed 06/30/22] cyclobenzaprine 10 mg tablet 10 mg PO BEDTIME #10 tabs 02/12/20 [Rx Confirmed 06/30/22] alprazolam 0.5 mg tablet 0.5 mg PO DAILY PRN Anxiety 12/13/20 [History Confirmed 06/30/22] gabapentin 600 mg tablet 1,200 mg PO BEDTIME 12/13/20 [History Confirmed 06/30/22] hydroxyzine HCl 25 mg tablet 25 mg PO TID 12/13/20 [History Confirmed 06/30/22] olanzapine 2.5 mg tablet 2.5 mg PO BEDTIME 12/13/20 [History Confirmed 06/30/22] ascorbic acid (vitamin C) 500 mg tablet (Vitamin C) 500 mg PO DAILY 06/30/22 [History Confirmed 06/30/22] cholecalciferol (vitamin D3) 25 mcg (1,000 unit) tablet (Vitamin D3) 25 mcg PO DAILY 06/30/22 [History Confirmed 06/30/22] vitamin B complex 1 tab PO DAILY 06/30/22 [History Confirmed 06/30/22] prednisone 20 mg tablet 60 mg PO DAILY 5 days #15 tabs 09/17/22 [Rx] Visit Medications (administered) Generic Name Dose Route Start Last Admin Trade Name Vimal PRN Reason Stop Dose Admin Hydrocodone Bitart/Acetaminophen 1 tab 09/18/22 23:45 09/19/22 01:16 Hydrocodone/Acet 5/325 Tablet PO Not Given TID FRANCISCO JAVIER Insulin Human Regular 100 unit 100 mls @ 6 mls/hr 09/18/22 22:15 09/18/22 23:33 / Sodium Chloride IV 6 unit/hr TITRATE FRANCISCO JAVIER 6 mls/hr Administration Protocol Lactated Ringer's 1,000 mls @ 150 mls/hr 09/19/22 01:00 09/19/22 01:00 Lactated Ringers IV 150 mls/hr CONT FRANCISCO JAVIER Administration Doxycycline Hyclate 100 mg/ 100 mls @ 100 mls/hr 09/19/22 01:00 09/19/22 02:33 Sodium Chloride IV Infused Q12H FRANCISCO JAVIER Infusion Olanzapine 2.5 mg 09/18/22 23:45 09/19/22 03:53 Olanzapine 2.5 Mg Tablet PO Not Given BEDTIME FRANCISCO JAVIER Review of Systems Constitutional Constitutional: Reports other (Unable to perform as patient was sleeping) Exam Vital Signs (past 8 hours): - 09/18/22 20:20 09/18/22 20:51 09/18/22 21:00 Temperature 97.5 F L Pulse Rate 104 H 102 H 99 H Respiratory Rate 18 23 Blood Pressure 146/64 H Pulse Oximetry 96 96 97 Oxygen Delivery Method Room Air 09/18/22 21:30 09/18/22 21:47 09/18/22 21:47 Temperature Pulse Rate 100 H 104 H Respiratory Rate 29 H 26 H Blood Pressure 139/72 Pulse Oximetry 96 Oxygen Delivery Method 09/18/22 22:00 09/18/22 22:46 09/18/22 23:00 Temperature Pulse Rate 105 H 145 H 146 H Respiratory Rate 43 H 19 28 H Blood Pressure Pulse Oximetry 96 92 97 Oxygen Delivery Method 09/18/22 23:30 09/18/22 23:55 09/19/22 00:35 Temperature 98.1 F Pulse Rate 145 H 145 H 107 H Respiratory Rate 21 20 Blood Pressure 135/64 132/60 Pulse Oximetry 97 96 Oxygen Delivery Method 09/18/22 23:54 09/18/22 23:54 09/19/22 00:00 Temperature Pulse Rate 148 H Respiratory Rate 36 H Blood Pressure 135/64 112/56 L Pulse Oximetry 96 Oxygen Delivery Method 09/19/22 00:00 09/19/22 00:38 09/19/22 00:38 Temperature Pulse Rate 93 H 107 H Respiratory Rate 20 22 Blood Pressure 132/60 Pulse Oximetry 96 96 Oxygen Delivery Method 09/19/22 00:59 09/19/22 01:00 09/19/22 01:47 Temperature Pulse Rate 106 H Respiratory Rate 19 Blood Pressure 122/57 L Pulse Oximetry 98 Oxygen Delivery Method Room Air 09/19/22 01:00 09/19/22 01:30 09/19/22 01:30 Temperature Pulse Rate 107 H 105 H Respiratory Rate 19 19 Blood Pressure 120/56 L Pulse Oximetry 98 97 Oxygen Delivery Method 09/19/22 02:00 09/19/22 02:00 09/19/22 02:30 Temperature Pulse Rate 107 H Respiratory Rate 20 Blood Pressure 128/60 124/58 L Pulse Oximetry 97 Oxygen Delivery Method 09/19/22 02:30 09/19/22 03:00 09/19/22 03:00 Temperature Pulse Rate 104 H 104 H Respiratory Rate 41 H 27 H Blood Pressure 124/58 L Pulse Oximetry 98 97 Oxygen Delivery Method 09/19/22 03:30 09/19/22 03:30 Temperature Pulse Rate 101 H Respiratory Rate 51 H Blood Pressure 115/55 L Pulse Oximetry 97 Oxygen Delivery Method Oxygen Delivery Method Room Air Resp Effort & Inspection: normal respiratory effort Cardio Rate: regular rate Rhythm: regular rhythm Objective Labs 09/18/22 20:40 09/18/22 23:40 Labs: Laboratory Results - last 24 hr 09/18/22 09/18/22 09/18/22 20:40 20:40 20:40 WBC 11.1 H D RBC 5.45 H Hgb 15.6 Hct 47.6 H MCV 87.4 MCH 28.6 MCHC 32.8 RDW 13.4 Plt Count 318 Neut % (Auto) 78.7 H D Lymph % (Auto) 14.4 L [place] % (Auto) 6.4 Eos % (Auto) 0.2 L Baso % (Auto) 0.3 Neut # (Auto) 8800 H Lymph # (Auto) 1600 [place] # (Auto) 700 Eos # (Auto) 0 Baso # (Auto) 0 PT 11.8 INR 1.0 VBG pH VBG pCO2 VBG pO2 VBG HCO3 VBG Total CO2 VBG O2 Saturation VBG Base Excess FiO2 Sodium 132 L Potassium 5.4 H D Chloride 92 L Carbon Dioxide 10 L BUN 34 H Creatinine 0.94 Estimated GFR > 60 BUN/Creatinine Ratio 36.2 H Glucose 581 H* D Hemoglobin A1c Lactate Calcium 9.5 Total Bilirubin 0.7 AST 27 ALT 28 Alkaline Phosphatase 104 Troponin I < 0.012 NT-Pro-B Natriuret Pep 445 H Total Protein 9.1 H Albumin 4.7 Globulin 4.4 H Albumin/Globulin Ratio 1.1 Procalcitonin Urine RBC Urine WBC Ur Squamous Epith Cells Urine Bacteria Ur Culture Indicated? Nasal Screen MRSA (PCR) Ketones Chlamy pneumoniae PCR Adenovirus (PCR) B. pertussis DNA (PCR) B.parapertussis DNA PCR Coronavirus OC43 (PCR) Coronavirus HKU1 (PCR) Coronavirus 229E (PCR) SARS-CoV-2 (PCR) Coronavirus NL63 (PCR) Human Metapneumovir PCR Influenza Type A (PCR) Influenza Type B (PCR) M. pneumoniae (PCR) Parainfluenza 1 (PCR) Parainfluenza 2 (PCR) Parainfluenza 3 (PCR) Parainfluenza 4 (PCR) RSV (PCR) Entero/Rhino (PCR) 09/18/22 09/18/22 09/18/22 20:40 20:40 20:40 WBC RBC Hgb Hct MCV MCH MCHC RDW Plt Count Neut % (Auto) Lymph % (Auto) [place] % (Auto) Eos % (Auto) Baso % (Auto) Neut # (Auto) Lymph # (Auto) [place] # (Auto) Eos # (Auto) Baso # (Auto) PT INR VBG pH VBG pCO2 VBG pO2 VBG HCO3 VBG Total CO2 VBG O2 Saturation VBG Base Excess FiO2 Sodium Potassium Chloride Carbon Dioxide BUN Creatinine Estimated GFR BUN/Creatinine Ratio Glucose Hemoglobin A1c Lactate 2.4 H Calcium Total Bilirubin AST ALT Alkaline Phosphatase Troponin I NT-Pro-B Natriuret Pep Total Protein Albumin Globulin Albumin/Globulin Ratio Procalcitonin 0.36 Urine RBC Urine WBC Ur Squamous Epith Cells Urine Bacteria Ur Culture Indicated? Nasal Screen MRSA (PCR) Ketones 10.11 H Chlamy pneumoniae PCR Adenovirus (PCR) B. pertussis DNA (PCR) B.parapertussis DNA PCR Coronavirus OC43 (PCR) Coronavirus HKU1 (PCR) Coronavirus 229E (PCR) SARS-CoV-2 (PCR) Coronavirus NL63 (PCR) Human Metapneumovir PCR Influenza Type A (PCR) Influenza Type B (PCR) M. pneumoniae (PCR) Parainfluenza 1 (PCR) Parainfluenza 2 (PCR) Parainfluenza 3 (PCR) Parainfluenza 4 (PCR) RSV (PCR) Entero/Rhino (PCR) 09/18/22 09/18/22 09/18/22 20:40 21:44 22:42 WBC RBC Hgb Hct MCV MCH MCHC RDW Plt Count Neut % (Auto) Lymph % (Auto) [place] % (Auto) Eos % (Auto) Baso % (Auto) Neut # (Auto) Lymph # (Auto) [place] # (Auto) Eos # (Auto) Baso # (Auto) PT INR VBG pH 7.19 L* VBG pCO2 31.8 L VBG pO2 54 H VBG HCO3 12 L VBG Total CO2 13 L VBG O2 Saturation 80 H VBG Base Excess -16.0 L FiO2 21 Sodium Potassium Chloride Carbon Dioxide BUN Creatinine Estimated GFR BUN/Creatinine Ratio Glucose Hemoglobin A1c 9.5 H Lactate Calcium Total Bilirubin AST ALT Alkaline Phosphatase Troponin I NT-Pro-B Natriuret Pep Total Protein Albumin Globulin Albumin/Globulin Ratio Procalcitonin Urine RBC 0-1/hpf Urine WBC None seen Ur Squamous Epith Cells 0-1 /hpf Urine Bacteria None seen Ur Culture Indicated? Cult not indicated Nasal Screen MRSA (PCR) Ketones Chlamy pneumoniae PCR Adenovirus (PCR) B. pertussis DNA (PCR) B.parapertussis DNA PCR Coronavirus OC43 (PCR) Coronavirus HKU1 (PCR) Coronavirus 229E (PCR) SARS-CoV-2 (PCR) Coronavirus NL63 (PCR) Human Metapneumovir PCR Influenza Type A (PCR) Influenza Type B (PCR) M. pneumoniae (PCR) Parainfluenza 1 (PCR) Parainfluenza 2 (PCR) Parainfluenza 3 (PCR) Parainfluenza 4 (PCR) RSV (PCR) Entero/Rhino (PCR) 02/10/0909/18/22 09/18/22 22:45 23:40 23:40 WBC RBC Hgb Hct MCV MCH MCHC RDW Plt Count Neut % (Auto) Lymph % (Auto) [place] % (Auto) Eos % (Auto) Baso % (Auto) Neut # (Auto) Lymph # (Auto) [place] # (Auto) Eos # (Auto) Baso # (Auto) PT INR VBG pH VBG pCO2 VBG pO2 VBG HCO3 VBG Total CO2 VBG O2 Saturation VBG Base Excess FiO2 Sodium 133 L Potassium 5.4 H Chloride 98 Carbon Dioxide 6 L* BUN 35 H Creatinine 0.90 Estimated GFR > 60 BUN/Creatinine Ratio 38.9 H Glucose 535 H* Hemoglobin A1c Lactate 2.1 Calcium 8.7 Total Bilirubin AST ALT Alkaline Phosphatase Troponin I NT-Pro-B Natriuret Pep Total Protein Albumin Globulin Albumin/Globulin Ratio Procalcitonin Urine RBC Urine WBC Ur Squamous Epith Cells Urine Bacteria Ur Culture Indicated? Nasal Screen MRSA (PCR) Ketones Chlamy pneumoniae PCR Not detected Adenovirus (PCR) Not detected B. pertussis DNA (PCR) Not detected B.parapertussis DNA PCR Not detected Coronavirus OC43 (PCR) Detected H Coronavirus HKU1 (PCR) Not detected Coronavirus 229E (PCR) Not detected SARS-CoV-2 (PCR) Not detected Coronavirus NL63 (PCR) Not detected Human Metapneumovir PCR Not detected Influenza Type A (PCR) Not detected Influenza Type B (PCR) Not detected M. pneumoniae (PCR) Not detected Parainfluenza 1 (PCR) Not detected Parainfluenza 2 (PCR) Not detected Parainfluenza 3 (PCR) Not detected Parainfluenza 4 (PCR) Not detected RSV (PCR) Not detected Entero/Rhino (PCR) Not detected 09/19/22 01:05 WBC RBC Hgb Hct MCV MCH MCHC RDW Plt Count Neut % (Auto) Lymph % (Auto) [place] % (Auto) Eos % (Auto) Baso % (Auto) Neut # (Auto) Lymph # (Auto) [place] # (Auto) Eos # (Auto) Baso # (Auto) PT INR VBG pH VBG pCO2 VBG pO2 VBG HCO3 VBG Total CO2 VBG O2 Saturation VBG Base Excess FiO2 Sodium Potassium Chloride Carbon Dioxide BUN Creatinine Estimated GFR BUN/Creatinine Ratio Glucose Hemoglobin A1c Lactate Calcium Total Bilirubin AST ALT Alkaline Phosphatase Troponin I NT-Pro-B Natriuret Pep Total Protein Albumin Globulin Albumin/Globulin Ratio Procalcitonin Urine RBC Urine WBC Ur Squamous Epith Cells Urine Bacteria Ur Culture Indicated? Nasal Screen MRSA (PCR) Negative for mrsa Ketones Chlamy pneumoniae PCR Adenovirus (PCR) B. pertussis DNA (PCR) B.parapertussis DNA PCR Coronavirus OC43 (PCR) Coronavirus HKU1 (PCR) Coronavirus 229E (PCR) SARS-CoV-2 (PCR) Coronavirus NL63 (PCR) Human Metapneumovir PCR Influenza Type A (PCR) Influenza Type B (PCR) M. pneumoniae (PCR) Parainfluenza 1 (PCR) Parainfluenza 2 (PCR) Parainfluenza 3 (PCR) Parainfluenza 4 (PCR) RSV (PCR) Entero/Rhino (PCR) Assessment & Plan Assessment and plan (1) DKA, type 1: Qualifiers: Diabetes mellitus complication detail: without coma Qualified Code(s): E10.10 - Type 1 diabetes mellitus with ketoacidosis without coma Status: Acute Plan: -Continue DKA protocol (2) Hypothyroidism: Status: Acute Plan: -Continue outpt levothyroxine (3) Sleep apnea: Status: Acute Plan: -Consider addition of nocturnal NIPPV (4) COPD (chronic obstructive pulmonary disease): Status: Acute Plan: -Agree with empiric doxycycline -I added [id number] Duoneb Time Spent With Patient Critical Care time: I spent a total of 15 minutes of time on this patient's care today.
[2022-09-19 04:23] LABS: Add Manual Diff / Slide Review NO; Basophils Absolute Auto 0 /uL (0-100); Basophils Percent Auto 0.1 % (0-2); Eosinophils Absolute Auto 100 /uL (0-450); Eosinophils Percent Auto 0.3 % (2-4); Hematocrit 43.7 % (36-46); Hemoglobin 14.4 g/dL (12.0-16.0); Lymphocytes Absolute Auto 2600 /uL (1100-4500); Mean Corpuscular Hemoglobin 28.5 PG (26-34); Mean Corpuscular Volume 86.5 fL (80-100); Monocytes Absolute Auto 1300 /uL (0-900); Monocytes Percent Auto 7.3 % (3-14); Neutrophils Absolute Auto 13300 /uL (1500-7000); Neutrophils Percent Auto 77.3 % (50-75); Platelet Count 267 X10^3/uL (150-400); Red Blood Cell Count 5.05 X10^6/uL (4.0-5.2); Red Cell Distribution Width 13.9 % (11.6-14.8)
[2022-09-19 04:26] LABS: White Blood Cell Count 17.2 X10^3/uL (4.5-11.0)
[2022-09-19 04:35] LABS: BUN Creatinine Ratio 46.8 (6-22); Blood Urea Nitrogen 36 mg/dL (7-17); Calcium 8.8 mg/dL (8.4-10.2); Carbon Dioxide 10 mmol/L (22-32); Chloride 103 mmol/L (98-107); Estimated Glomerular Filt Rate > 60 mL/min (>60); Glucose 303 mg/dL (80-110); HEMOLYSIS 21 (0-50); Sodium 134 mmol/L (137-145)
[2022-09-19 04:43] LABS: Magnesium 1.8 mg/dL (1.6-2.3)
[2022-09-19 04:45] LABS: Ketones (Beta-Hydroxybutyrate) 6.92 mmol/L (<0.27)
[2022-09-19] MEDS: LACTATED RINGERS 1,000 ML 1000 ML IV (05:35)
[2022-09-19] MEDS: POTASSIUM CHLORIDE IN WATER 10 MEQ/100 ML PIGGYBACK 100 MEQ IV ×2 (06:32→09:15)
[2022-09-19 08:14] LABS: BUN Creatinine Ratio 62.9 (6-22); Blood Urea Nitrogen 39 mg/dL (7-17); Calcium 8.7 mg/dL (8.4-10.2); Carbon Dioxide 21 mmol/L (22-32); Chloride 105 mmol/L (98-107); Estimated Glomerular Filt Rate > 60 mL/min (>60); Glucose 146 mg/dL (80-110); HEMOLYSIS 17 (0-50); Potassium 4.5 mmol/L (3.4-5.1); Sodium 133 mmol/L (137-145)
[2022-09-19] MEDS: ALBUTEROL/IPRATROPIUM 3 ML AMPUL INH ×3 (08:16→20:06)
[2022-09-19] MEDS: ESCITALOPRAM 10 MG TABLET 40 MG PO (09:16)
[2022-09-19] MEDS: ENOXAPARIN 40 MG/0.4 ML SYRINGE SUBCUT (09:16)
[2022-09-19] MEDS: HYDROCODONE/ACET 5/325 TABLET 1 TAB PO ×2 (09:16→20:34)
[2022-09-19] MEDS: buPROPion XL 150 MG TAB PO (09:16)
[2022-09-19] MEDS: predniSONE 20 MG TABLET 40 MG PO (09:16)
[2022-09-19] MEDS: lisinopriL 5 MG TABLET 2.5 MG PO (09:17)
--- NOTE | 2022-09-19 09:32 | PM.ICURNDS ---
- Date Patient Seen: 09/19/22 Time Patient Seen: 09:32 :: This patient was seen via real time interactive two-way audiovisual telecommunication. Note: AM rounds completed. AG closed and Co2 is above 17. Will transition patient wiht lantus 30 units SQ and turn off insulin gtt after 2 hours. D/w RN at bedside.
[2022-09-19] MEDS: INSULIN GLARGINE 100 UNIT/ML 3ML PEN 30 UNIT SUBCUT (11:17)
[2022-09-19 12:28] LABS: BUN Creatinine Ratio 57.6 (6-22); Blood Urea Nitrogen 34 mg/dL (7-17); Calcium 8.4 mg/dL (8.4-10.2); Carbon Dioxide 21 mmol/L (22-32); Chloride 105 mmol/L (98-107); Estimated Glomerular Filt Rate > 60 mL/min (>60); Glucose 121 mg/dL (80-110); HEMOLYSIS < 15 (0-50); Potassium 4.6 mmol/L (3.4-5.1); Sodium 135 mmol/L (137-145)
--- NOTE | 2022-09-19 17:46 | DIET.CONS ---
Dietary Consultation Note Admission Date: 09/18/2022 23:16 Assessment: RD consulted for DKA and HgA1c of 9.5%. Pt was unable to participate in assessment and not currently appropriate for education. Unable to respond to questions and seemed disoriented. Will try again Thursday if pt is still admitted. Glucose much improved since admission. Two elevations >180 mg/dl today. Highest 237 mg/dl. Ht: 170.18 cm Wt: 73 kg BMI: 25.2 Last BM: () MNA: Jv Score: 19 Diet: 09/19/22 02:34 NPO Diet Diet Modifications: NPO Type: Strict Labs: RBC 5.05 X10^6/uL (4.0-5.2) 09/19/22 04:09 Hgb 14.4 g/dL (12.0-16.0) 09/19/22 04:09 Hct 43.7 % (36-46) 09/19/22 04:09 Creatinine 0.59 mg/dL (0.52-1.04) 09/19/22 11:50 Hemoglobin A1c 9.5 % (4.0-6.0) H 09/18/22 20:40 Lactate 2.1 mmol/L (0.7-2.1) 09/18/22 23:40 NT-Pro-B Natriuret Pep 445 pg/mL (<125) H 09/18/22 20:40 Electronically Signed by: Karen Sibley 09/19/22 17:46 Clinical Dietitian [address] [address]
[2022-09-19] MEDS: INSULIN LISPRO 100 UNIT/ML 3ML VIAL SUBCUT ×2 (18:28→20:34)
[2022-09-19] MEDS: GUAIFENESIN/DM 200/20 MG/10 ML UDC PO (19:51)
[2022-09-19] MEDS: OLANZapine 2.5 MG TABLET PO (20:34)
[2022-09-19] MEDS: ATORVASTATIN 20 MG TABLET PO (20:34)
[2022-09-20 00:41] VITALS: BP 123/60; PULSE 77; RESP 18; TEMP 36.9; O2SAT 93
[2022-09-20] MEDS: ACETAMINOPHEN 325 MG TABLET 650 MG PO (00:43)
[2022-09-20] MEDS: DOXYCYCLINE 100 MG in SODIUM CHLORIDE 0.9% 100 ML IV (00:52)
[2022-09-20] MEDS: GUAIFENESIN/DM 200/20 MG/10 ML UDC PO (02:28)
[2022-09-20] MEDS: MORPHINE ER 15 MG TABLET PO (03:36)
[2022-09-20] MEDS: ALBUTEROL/IPRATROPIUM 3 ML AMPUL INH ×2 (04:31→08:48)
[2022-09-20 04:42] VITALS: BP 151/67; PULSE 78; RESP 18; TEMP 36.9; O2SAT 98
[2022-09-20 05:31] LABS: Add Manual Diff / Slide Review NO; Basophils Absolute Auto 0 /uL (0-100); Basophils Percent Auto 0.1 % (0-2); Eosinophils Absolute Auto 0 /uL (0-450); Hematocrit 38.4 % (36-46); Hemoglobin 12.9 g/dL (12.0-16.0); Lymphocytes Absolute Auto 2200 /uL (1100-4500); Lymphocytes Percent Auto 19.9 % (25-40); Mean Corpuscular HGB Conc 33.7 % (30-36); Mean Corpuscular Hemoglobin 28.3 PG (26-34); Mean Corpuscular Volume 84.1 fL (80-100); Monocytes Absolute Auto 800 /uL (0-900); Monocytes Percent Auto 7.4 % (3-14); Neutrophils Absolute Auto 8100 /uL (1500-7000); Neutrophils Percent Auto 72.6 % (50-75); Platelet Count 209 X10^3/uL (150-400); Red Blood Cell Count 4.57 X10^6/uL (4.0-5.2); Red Cell Distribution Width 13.4 % (11.6-14.8); White Blood Cell Count 11.2 X10^3/uL (4.5-11.0)
[2022-09-20 05:38] LABS: Magnesium 1.8 mg/dL (1.6-2.3)
[2022-09-20 05:40] LABS: Ketones (Beta-Hydroxybutyrate) 1.33 mmol/L (<0.27)
[2022-09-20] MEDS: LEVOTHYROXINE 112 MCG TABLET PO (05:48)
[2022-09-20 07:45] VITALS: BP 143/63; PULSE 77; RESP 96; TEMP 37; O2SAT 96
[2022-09-20 08:49] VITALS: PULSE 81; RESP 18; O2SAT 93
[2022-09-20] MEDS: ENOXAPARIN 40 MG/0.4 ML SYRINGE SUBCUT (09:02)
[2022-09-20] MEDS: lisinopriL 5 MG TABLET 2.5 MG PO (09:03)
[2022-09-20] MEDS: buPROPion XL 150 MG TAB PO (09:03)
[2022-09-20] MEDS: ESCITALOPRAM 10 MG TABLET 40 MG PO (09:03)
[2022-09-20] MEDS: INSULIN LISPRO 100 UNIT/ML 3ML VIAL SUBCUT (09:04)
[2022-09-20] MEDS: INSULIN GLARGINE 100 UNIT/ML 3ML PEN 30 UNIT SUBCUT (09:04)
[2022-09-20] MEDS: ATORVASTATIN 20 MG TABLET PO (09:04)
--- NOTE | 2022-09-20 09:38 | PM.DS.1 ---
History of Present Illness History of Present Illness Date Patient Seen: 09/20/22 Time Patient Seen: 09:38 Chief complaint: difficulty breathing Narrative: Per admitting provider, Alissa Kirby is a 72-year-old female smoker with COPD, Sjogren's disease, insulin-dependent diabetes, atrial flutter, hypothyroid, hyperlipidemia presented to the ED today with shortness of breath and decreasing mental status.? She was seen evaluated in the ED yesterday for a presumed COPD exacerbation.? She was having increasing shortness of breath throughout the day and complained of a sore throat and nonproductive cough. She was treated with nebulizers and solumedrol yesterday, felt better and was discharged home. ??She presentrdf again today reports that she is been sleeping the whole time.? She still complains of sore throat and some shortness of breath.? Today she is not hypoxic with no sign of respiratory distress.? She is drowsy but able to follow some commands and answer some questions.? She does endorse having nausea, no vomiting, denies any chest pain or palpitations.? Blood cultures drawn from yesterday were negative. Chest x-rays done yesterday and today were both negative for any acute cardiopulmonary process. While in the emergency department she did develop an atrial flutter which was sustained in the 145 range for a period and was administered IV diltiazem which apparently converted her. She is currently afebrile, blood pressure 132/60, heart rate 107, respiratory rate 22, oxygen saturation of 96% on room air she weighs 73 kg with a BMI of 31.3. She is a mildly elevated white count of 11.1 likely stress-induced mild left shift of 8800, VBG pH was 7.19 with a pCO2 of 31.8 PO2 was 54 bicarb 12, sodium 133 potassium 5.4 chloride 98 bicarb 6 (insulin drip had not been started) BUN 35 glucose 535 her A1c is 9.5 proBNP 445 ketones were positive at 10.11 and Coronavirus OC 43 was detected however COVID-19 PCR is negative. Discharge Providers Provider Date of admission: 09/18/22 23:16 Discharge Date: 09/20/22 Primary care physician: Saundra Cortez PA-C Consults: 09/18/22 23:22 Consult to Tele-food service technician Routine Comment: Consulting Provider: [facility] [employer] Reason for consultation: [facility] Consultant services Has provider been notified: Yes 09/19/22 08:08 Consult to Dietitian, Adult Routine Comment: Reason For Exam: DKA, A1c 9.5% Discharge provider: Andrea Esqueda DO Summary Hospital Course Discharge Diagnosis: Diabetic ketoacidosis, acute, present on admission Hypothyroidism, chronic Sjogren's disease, chronic Bipolar, chronic HLD, chronic Hospital Course: This is a 72-year-old female with a past medical history of type 1 diabetes who was admitted for DKA. The day prior to this admission she was in the emergency room and treated for a COPD exacerbation with 60 mg of prednisone. This is likely the etiology of her DKA as infectious workup was unremarkable. She was continued on doxycycline for anti-inflammatory effect, while her steroids were held further. She improved quickly with an insulin infusion and was titrated to long-acting insulin. She was eating and tolerating a diet the following day and was discharged home on HD#1, much more quickly than anticipated. No recommendations are recommended to her home insulin therapy at this time. Time Spent with Patient Time spent: Greater than 30 minutes Exam Vital Signs (past 8 hours): - 09/20/22 04:42 09/20/22 08:49 09/20/22 07:45 Temperature 98.5 F 98.6 F Pulse Rate 78 81 77 Respiratory Rate 18 18 96 H Blood Pressure 151/67 H 143/63 H Pulse Oximetry 98 93 96 Oxygen Delivery Method Room Air Oxygen Flow Rate 0 0 Oxygen Delivery Method Room Air Oxygen Flow Rate 0 Narrative Exam Narrative: Gen: Alert, oriented, ill-appearing but nontoxic appearing 72 y.o. female in no acute distress. HEENT: normocephalic, atraumatic, conjunctiva clear, sclera non-icteric, oral mucosa pink and moist Neck: supple, full ROM, no JVD, trachea is midline Resp: Lungs CTA, non-labored breathing CV: RRR, no murmur or rubs Abd: soft, non-tender, normoactive BTs Skin: no lesions or rashes, dry and intact Neuro: Alert and oriented X 4 w/no focal deficits. Speech soft but intellegible. Extremities: no edema or joint effusions Objective Labs 09/20/22 04:16 09/19/22 11:50 Labs: Laboratory Results - last 24 hr 09/19/22 09/20/22 09/20/22 11:50 04:16 04:16 WBC 11.2 H RBC 4.57 Hgb 12.9 Hct 38.4 MCV 84.1 MCH 28.3 MCHC 33.7 RDW 13.4 Plt Count 209 Neut % (Auto) 72.6 Lymph % (Auto) 19.9 L [place] % (Auto) 7.4 Eos % (Auto) 0.0 L Baso % (Auto) 0.1 Neut # (Auto) 8100 H Lymph # (Auto) 2200 [place] # (Auto) 800 Eos # (Auto) 0 Baso # (Auto) 0 Sodium 135 L Potassium 4.6 Chloride 105 Carbon Dioxide 21 L BUN 34 H Creatinine 0.59 Estimated GFR > 60 BUN/Creatinine Ratio 57.6 H Glucose 121 H Calcium 8.4 Magnesium 1.8 Beta-Hydroxybutyrate Ketones 1.33 H 09/20/22 04:16 WBC RBC Hgb Hct MCV MCH MCHC RDW Plt Count Neut % (Auto) Lymph % (Auto) [place] % (Auto) Eos % (Auto) Baso % (Auto) Neut # (Auto) Lymph # (Auto) [place] # (Auto) Eos # (Auto) Baso # (Auto) Sodium Potassium Chloride Carbon Dioxide BUN Creatinine Estimated GFR BUN/Creatinine Ratio Glucose Calcium Magnesium Beta-Hydroxybutyrate Cancelled Ketones [facility] Medical History (Updated 09/19/22 @ 04:21 by Phil Montes MD) Depression Diabetes Fibromyalgia GERD (gastroesophageal reflux disease) Hyperlipidemia Hypothyroidism Meningioma Restless leg syndrome Sjogren's disease Sleep apnea Spinal stenosis, lumbar Venous stasis dermatitis of both lower extremities Surgical History H/O total hysterectomy History of cholecystectomy History of lymph node biopsy History of vein stripping Family History Mother Bowel obstruction Father Psychiatric disorder Brother Hypertension Sister Cancer Social History household members: spouse Smoking Status: Current some day smoker alcohol intake: never substance use type: does not use Discharge Plan Discharge Plan Patient Disposition: Home Provider Discharge Comment: You were admitted to the hospital with DKA, likely due in part at least to the steroids for COPD exacerbation. Steroids were stopped, continue a couple more days of doxycycline for antiinflammatory effects at home. No changes recommended at this time to your home diabetes medications. Discharge orders & Medications Prescriptions: New doxycycline hyclate 100 mg tablet 100 mg PO BID 2 Days Qty: 4 0RF Continued omeprazole 20 mg Capsule,Delayed Release(Dr/Ec) 20 mg PO DAILY Qty: 0 escitalopram oxalate [Lexapro] 20 mg Tablet 40 mg PO DAILY Qty: 0 Rx Instructions: Take 2 tablets by mouth once daily at 3PM cevimeline 30 mg Capsule 10 mg PO TID lisinopril 2.5 mg Tablet 2.5 mg PO DAILY insulin aspart U-100 [Novolog Flexpen U-100 Insulin] 100 unit/mL Insulin Pen 4 - 6 unit SUBCUT AC Label Comments: takes it with meals. hydrocodone-acetaminophen 5-325 mg Tablet 1 tab PO TID Qty: 0 0RF Label Comments: Pt states she takes 1 hydrocodone/acetaminophen 5/500 mg tab PO TID insulin glargine [Lantus Solostar U-100 Insulin] 100 unit/mL (3 mL) insulin pen 25 unit SUBCUT BEDTIME atorvastatin 20 mg Tablet 20 mg PO DAILY morphine [MS Contin] 15 mg tablet extended release 15 mg PO Q8H Qty: 30 0RF Rx Instructions: 0400, 1200, 2000 ondansetron 4 mg tablet,disintegrating 4 mg PO Q6H PRN (Reason: nausea and vomiting) Qty: 20 0RF ascorbic acid (vitamin C) [Vitamin C] 500 mg Tablet 500 mg PO DAILY Label Comments: PT TO VERIFY DOSE vitamin B complex Tablet 1 tab PO DAILY cholecalciferol (vitamin D3) [Vitamin D3] 25 mcg (1,000 unit) Tablet 25 mcg PO DAILY furosemide 40 mg Tablet 20 mg PO DAILY Label Comments: PT TAKES 20 MG DAILY potassium chloride 10 mEq Capsule, Extended Release 10 meq PO DAILY bupropion HCl 150 mg Tablet Extended Release 24 Hr 150 mg PO QAM levothyroxine 125 mcg capsule 125 mcg PO DAILY Qty: 30 0RF cyclobenzaprine 10 mg tablet 10 mg PO BEDTIME Qty: 10 0RF alprazolam 0.5 mg tablet 0.5 mg PO DAILY PRN (Reason: Anxiety) Label Comments: TAKE 1 TABLET BY MOUTH DAILY NEEDED FOR ANXIETY olanzapine 2.5 mg tablet 2.5 mg PO BEDTIME Label Comments: TAKE 1 TABLET BY MOUTH AT NIGHT FOR SLEEP / MOOD gabapentin 600 mg tablet 1,200 mg PO BEDTIME hydroxyzine HCl 25 mg tablet 25 mg PO TID Discontinued prednisone 20 mg tablet 60 mg PO DAILY 5 Days Qty: 15 0RF Follow up/Referrals: Saundra Cortez PA-C [Primary Care Provider] - Diet/Activity/Treatments Diet: Diet as Tolerated and Carb-consistent/Diabetic Activity: As tolerated Visit Report/Discharge Packet Instructions: DI for Diabetic Ketoacidosis Stand Alone Forms: Patient Portal/API Discharge Data Primary Care Provider: Saundra Cortez
== END 2022-09-20 11:43 | disposition home or self-care (01) | DRG 638 ==
LOC: ED 23:16 → AC 23:18 → ICU 09-19 00:12
PROVIDERS: Admitting Provider Nurse Practitioner Family; Emergency Provider Emergency Medicine; Family Provider Internal Medicine; PCP Physician Assistant; Referring Provider Emergency Medicine; Visit Provider Nurse Practitioner Family
DX: E10.10 Type 1 diabetes mellitus with ketoacidosis without coma (principal); J44.1 Chronic obstructive pulmonary disease with (acute) exacerbation; E03.9 Hypothyroidism, unspecified; M35.00 Sjogren syndrome, unspecified; F31.9 Bipolar disorder, unspecified; E78.5 Hyperlipidemia, unspecified; J44.9 Chronic obstructive pulmonary disease, unspecified; T38.0X5A Adverse effect of glucocorticoids and synthetic analogues, initial encounter; K21.9 Gastro-esophageal reflux disease without esophagitis; F17.210 Nicotine dependence, cigarettes, uncomplicated; Z20.822 Contact with and (suspected) exposure to COVID-19
CPT/HCPCS: 0241U; 36415; 36600; 71045; 80048; 80053; 81003; 81015; 82009; 82805; 82962; 83036; 83605; 83735; 83880; 84145; 84484; 85025; 85379; 85610; 87040; 87633; 87797; 87880; 93005; 94640; 96374; 96375; 99231; 99284; 99291; 99292; J1650; J1815; J2930; J7613

== ENCOUNTER 2023-03-25 22:51 | Emergency (ER) | payer OTHER, SELFPAY ==
[2022-09-19 05:00] VITALS: BMI 25.2
[2023-03-25 22:56] VITALS: BP 131/66; PULSE 82; RESP 16; TEMP 37.1; O2SAT 98; BMI 22.8
[2023-03-25 23:48] LABS: Bacteria Urine Few (2-10); RBC Urine 0-1/HPF (0-5/HPF); Squamous Epithelial Cell Urine 1-5 /HPF (0-5/HPF); WBC Urine 30-100/HPF (0-5/HPF)
[2023-03-25 23:49] LABS: Culture Indicated Urine Specimen Cultured
== END 2023-03-26 03:00 | disposition left against medical advice (07) ==
PROVIDERS: Emergency Provider Emergency Medicine; Family Provider Internal Medicine; PCP Physician Assistant
DX: R35.0 Frequency of micturition (principal)
CPT/HCPCS: 81003; 81015; 87077; 87086; 87186; 99281

== ENCOUNTER → 2023-03-26 18:23 | Outpatient (CLI) | payer OTHER, SELFPAY ==
[2022-09-19 05:00] VITALS: BMI 25.2
== END ==
PROVIDERS: Family Provider Internal Medicine; PCP Physician Assistant; Visit Provider Nurse Practitioner Family
DX: R30.0 Dysuria (principal)
CPT/HCPCS: 87077; 87086; 87186

== ENCOUNTER 2023-05-06 14:25 | Inpatient (IN) | payer OTHER, SELFPAY ==
[2022-09-19 05:00] VITALS: BMI 25.2
[2023-05-06] VITALS (14 sets, daily range): BP systolic 108–168; BP diastolic 58–89; PULSE 78–102; RESP 17–28; TEMP 36.4–36.6; O2SAT 80–97; BMI 19.4
--- NOTE | 2023-05-06 | DI.RAD.S_ITS ---
PROCEDURE: XR CHEST 1V INDICATIONS: altered mental status, hx COPD TECHNIQUE: One view of the chest was acquired. COMPARISON: [facility], CR, XR CHEST 1V, 09/18/2022, 21:53. FINDINGS: Surgical changes and devices: None. Lungs and pleura: Lungs are clear. No pleural effusions or pneumothorax. Mediastinum: Mediastinal contours appear normal. Heart size is normal. Bones and chest wall: No suspicious bony lesions. Overlying soft tissues appear unremarkable. IMPRESSION: Portable chest within normal limits for age. Dictated by: Madhavi Perrin M.D. on 05/06/2023 at 16:44 Approved by: Madhavi Perrin M.D. on 05/06/2023 at 16:44
--- NOTE | 2023-05-06 14:47 | ED.NEUROSD ---
HPI - Neuro Symptoms/Deficit General Chief Complaint: Neuro Symptoms/Deficit Stated Complaint: Low Blood Sugar, Low Loc. Time Seen by Provider: 05/06/23 14:38 Source: patient, family and EMS Mode of arrival: EMS Limitations: altered mental status History of Present Illness HPI Narrative: Patient is a 72-year-old female. Has a type 1 insulin-dependent diabetic. Also has a history of COPD. She is here with her . Per her 's report the patient has a very abnormal sleep cycle where she is awake all night and goes to bed at approximately 0600 hours in the morning and then sleeps all day. He states that that is what happened this morning. He states he went into wake her up about 1300 hours which is normal for him. He states that it was difficult to arouse her. EMS was called. She was found to be hypoglycemic with a blood sugar less than 30. She was given glucose. This did improve her blood sugar but did not improve her mentation. Here in the emergency department the patient was very somnolent but was arousable to deep stimuli. She was maintaining her airway. Her blood sugar started to drop. Difficult to obtain any HPI or review of systems from the patient. Related Data Home Medications Medication Instructions Recorded Confirmed escitalopram oxalate 20 mg tablet 40 mg PO DAILY ##0 03/16/10 05/05/23 (Lexapro) omeprazole 20 mg capsule,delayed 20 mg PO DAILY ##0 03/16/10 05/05/23 release cevimeline 30 mg capsule 10 mg PO TID 06/24/18 05/05/23 insulin aspart U-100 100 unit/mL 4 - 6 unit SUBCUT AC 06/24/18 05/05/23 (3 mL) subcutaneous pen (Novolog FlexPen U-100 Insulin aspart) lisinopril 2.5 mg tablet 2.5 mg PO DAILY 06/24/18 05/05/23 atorvastatin 20 mg tablet 20 mg PO DAILY 01/03/19 05/05/23 insulin glargine 100 unit/mL (3 25 unit SUBCUT BEDTIME 01/03/19 05/05/23 mL) subcutaneous pen (Lantus Solostar U-100 Insulin) bupropion HCl 150 mg 24 hr tablet, 150 mg PO QAM 03/22/19 05/05/23 extended release gabapentin 600 mg tablet 1,200 mg PO BEDTIME 12/13/20 05/05/23 ascorbic acid (vitamin C) 500 mg 500 mg PO DAILY 06/30/22 05/05/23 tablet (Vitamin C) cholecalciferol (vitamin D3) 25 25 mcg PO DAILY 06/30/22 05/05/23 mcg (1,000 unit) tablet (Vitamin D3) vitamin B complex 1 tab PO DAILY 06/30/22 05/05/23 Previous Rx's Medication Instructions Recorded hydrocodone 5 mg-acetaminophen 325 1 tab PO TID #0 tabs 06/27/18 mg tablet morphine 15 mg tablet,extended 15 mg PO Q8H #30 tabs 01/09/19 release (MS Contin) levothyroxine 125 mcg capsule 125 mcg PO DAILY #30 caps 03/26/19 ondansetron 4 mg disintegrating 4 mg PO Q6H PRN nausea and 04/28/19 tablet vomiting #20 tabs cyclobenzaprine 10 mg tablet 10 mg PO BEDTIME #10 tabs 02/12/20 Allergies Allergy/AdvReac Type Severity Reaction Status Date / Time sulfamethoxazole Allergy Verified 05/06/23 14:34 [From Bactrim] trimethoprim [From Bactrim] Allergy Verified 05/06/23 14:34 venlafaxine [From Effexor] AdvReac Verified 05/06/23 14:34 Review of Systems Review of Systems ROS Unobtainable: Unobtainable due to mental status/LOC Patient History Medical History Depression Diabetes Fibromyalgia GERD (gastroesophageal reflux disease) Hyperlipidemia Hypothyroidism Meningioma Restless leg syndrome Sjogren's disease Sleep apnea Spinal stenosis, lumbar Venous stasis dermatitis of both lower extremities Surgical History H/O total hysterectomy History of cholecystectomy History of lymph node biopsy History of vein stripping Family History Mother Bowel obstruction Father Psychiatric disorder Brother Hypertension Sister Cancer Social History household members: spouse Smoking Status: Current some day smoker alcohol intake: never substance use type: does not use Smoking Status: Current some day smoker tobacco type: cigarettes alcohol intake frequency: holidays/special occasions only Substance Use Type: does not use Exam Initial Vital Signs Initial Vital Signs: Vital Signs Temperature 97.5 F L 05/06/23 14:18 Pulse Rate 94 H 05/06/23 14:18 Respiratory Rate 17 05/06/23 14:18 Blood Pressure 142/66 H 05/06/23 14:18 Pulse Oximetry 87 L 05/06/23 14:18 Oxygen Delivery Method Room Air 05/06/23 14:18 Const General: disheveled and No ill appearing HENMT Head: normal to inspection and normocephalic Eyes Pupils: PERRL Resp Effort & Inspection: normal respiratory effort Auscultation: clear to auscultation bilaterally Cardio Rate: regular rate Rhythm: regular rhythm Skin General: no rashes or lesions noted Neuro Other: Patient did follow commands. She would open her eyes to command. The words she did speak were clear however she was very somnolent. She did arouse to painful stimuli. Extrem General: capillary refill normal Other: No gross deformities Scores GCS Munir coma scale eye opening: To sound [place] coma scale verbal response: Words Munir coma scale motor response: Obey commands Munir coma scale total score: 12 Course Orders Ordered: ED Orders 05/06/23 14:35 Acetaminophen Stat Complete Blood Count AUTO DIFF Stat Comprehensive Metabolic Panel Stat Ethanol (ETOH) Stat Lactate (Lactic Acid) Stat Lipase Stat Salicylate Stat 05/06/23 14:52 EKG-12 Lead Stat 05/06/23 16:10 ABG [Arterial Blood Gas] Stat 05/06/23 17:02 Urinalysis and Microscopic Stat Urine Drug Screen, Rapid Stat Sodium Chloride (Normal Saline 0.9%) 1,000 mls @ 125 mls/hr IV CONT FRANCISCO JAVIER Last Admin: 05/06/23 14:55 Dose: 125 mls/hr Documented By: WESTLEY Dextrose (D10w) 1,000 mls @ 84 mls/hr IV CONT FRANCISCO JAVIER Last Admin: 05/06/23 14:55 Dose: 84 mls/hr Documented By: WESTLEY Naloxone HCl 2 mg/ Sodium (Chloride) 500 mls @ 62.5 mls/hr IV TITRATE FRANCISCO JAVIER; Protocol Last Admin: 05/06/23 15:24 Dose: 0.25 mg/hr, 62.5 mls/hr Documented By: TAYLOR Discontinued Medications Ammonia (Aromatic Spirit) (Ammonia Inhalant 1 Each) 1 each INH NOW ONE Stop: 05/06/23 14:47 Last Admin: 05/06/23 14:55 Dose: 1 each Documented By: WESTLEY Naloxone HCl (Naloxone 0.4 Mg/Ml Vial) 0.4 mg IV NOW ONE Stop: 05/06/23 14:50 Last Admin: 05/06/23 14:55 Dose: 0.4 mg Documented By: WESTLEY Vital Signs Vital signs: Vital Signs - 8 hr 05/06/23 14:18 05/06/23 14:30 05/06/23 14:30 Temperature 97.5 F L Pulse Rate 94 H 95 H Respiratory Rate 17 Blood Pressure 142/66 H 142/66 H Pulse Oximetry 87 L 80 L Oxygen Delivery Method Room Air 05/06/23 15:00 05/06/23 15:00 05/06/23 15:30 Temperature Pulse Rate 100 H Respiratory Rate 28 H Blood Pressure 128/71 115/68 Pulse Oximetry 93 Oxygen Delivery Method 05/06/23 15:30 05/06/23 16:00 05/06/23 16:00 Temperature Pulse Rate 95 H 96 H Respiratory Rate 22 22 Blood Pressure 144/73 H Pulse Oximetry 97 96 Oxygen Delivery Method 05/06/23 16:30 05/06/23 16:30 Temperature Pulse Rate 100 H Respiratory Rate 22 Blood Pressure 166/78 H Pulse Oximetry 94 Oxygen Delivery Method MDM - Neuro Symptoms/Deficit Medical Records Attestation: I reviewed the patient's medical records. Lab Data Attestation: I reviewed the patient's lab results. 05/06/23 14:35 05/06/23 14:35 Labs: Lab Results 05/06/23 05/06/23 05/06/23 Range/Units 14:35 14:35 14:35 WBC 5.6 (4.5-11.0) X10^3/uL RBC 4.70 (4.0-5.2) X10^6/uL Hgb 13.4 (12.0-16.0) g/dL Hct 39.8 (36-46) % MCV 84.8 (80-100) fL MCH 28.6 (26-34) PG MCHC 33.7 (30-36) % RDW 14.7 (11.6-14.8) % Plt Count 216 (150-400) X10^3/uL Neut % (Auto) 47.0 L (50-75) % Lymph % (Auto) 21.3 L (25-40) % [place] % (Auto) 6.6 (3-14) % Eos % (Auto) 24.7 H (2-4) % Baso % (Auto) 0.4 (0-2) % Neut # (Auto) 2700 (8134-6704) /uL Lymph # (Auto) 1200 (7676-4146) /uL [place] # (Auto) 400 (0-900) /uL Eos # (Auto) 1400 H (0-450) /uL Baso # (Auto) 0 (0-100) /uL ABG pH (7.35-7.45) ABG pCO2 (35-45) mmHg ABG pO2 (80-100) mmHg ABG HCO3 (23-27) mmol/L ABG Total CO2 (23-27) mmol/L ABG O2 Saturation (95-100) % ABG Base Excess (-2-3) mmol/L FiO2 Sodium 138 (137-145) mmol/L Potassium 3.7 (3.4-5.1) mmol/L Chloride 98 (98-107) mmol/L Carbon Dioxide 32 (22-32) mmol/L BUN 12 (7-17) mg/dL Creatinine 0.55 (0.52-1.04) mg/dL Estimated GFR > 60 (>60) mL/min BUN/Creatinine Ratio 21.8 (6-22) Glucose 106 (80-110) mg/dL Lactate 1.0 (0.7-2.1) mmol/L Calcium 9.2 (8.4-10.2) mg/dL Total Bilirubin 0.3 (0.2-1.3) mg/dL AST 29 (14-36) IU/L ALT 20 (<35) IU/L Alkaline Phosphatase 52 (38-126) U/L Total Protein 7.8 (6.3-8.2) g/dL Albumin 3.6 (3.5-5.0) g/dL Globulin 4.2 H (1.7-4.1) g/dL Albumin/Globulin Ratio 0.9 L (1.0-2.8) Lipase (23-300) U/L Salicylates (<20) mg/dL Acetaminophen < 10 (10-30) ug/mL Ethyl Alcohol ( - 10) mg/dL 05/06/23 05/06/23 Range/Units 14:35 16:10 WBC (4.5-11.0) X10^3/uL RBC (4.0-5.2) X10^6/uL Hgb (12.0-16.0) g/dL Hct (36-46) % MCV (80-100) fL MCH (26-34) PG MCHC (30-36) % RDW (11.6-14.8) % Plt Count (150-400) X10^3/uL Neut % (Auto) (50-75) % Lymph % (Auto) (25-40) % [place] % (Auto) (3-14) % Eos % (Auto) (2-4) % Baso % (Auto) (0-2) % Neut # (Auto) (8796-7887) /uL Lymph # (Auto) (0956-8981) /uL [place] # (Auto) (0-900) /uL Eos # (Auto) (0-450) /uL Baso # (Auto) (0-100) /uL ABG pH 7.38 (7.35-7.45) ABG pCO2 53.8 H (35-45) mmHg ABG pO2 56 L (80-100) mmHg ABG HCO3 32 H (23-27) mmol/L ABG Total CO2 33 H (23-27) mmol/L ABG O2 Saturation 87 L (95-100) % ABG Base Excess 6.0 H (-2-3) mmol/L FiO2 23 Sodium (137-145) mmol/L Potassium (3.4-5.1) mmol/L Chloride (98-107) mmol/L Carbon Dioxide (22-32) mmol/L BUN (7-17) mg/dL Creatinine (0.52-1.04) mg/dL Estimated GFR (>60) mL/min BUN/Creatinine Ratio (6-22) Glucose (80-110) mg/dL Lactate (0.7-2.1) mmol/L Calcium (8.4-10.2) mg/dL Total Bilirubin (0.2-1.3) mg/dL AST (14-36) IU/L ALT (<35) IU/L Alkaline Phosphatase (38-126) U/L Total Protein (6.3-8.2) g/dL Albumin (3.5-5.0) g/dL Globulin (1.7-4.1) g/dL Albumin/Globulin Ratio (1.0-2.8) Lipase 30 (23-300) U/L Salicylates < 1.0 (<20) mg/dL Acetaminophen (10-30) ug/mL Ethyl Alcohol < 10 ( - 10) mg/dL Point of Care Testing Glucose POC 160 ECG Data Attestation: I personally reviewed and interpreted this ECG as follows: Interpretation: Sinus rhythm Ventricular rate 90 Normal axis Normal QRS QTC [address] T wave changes MDM Narrative Medical decision making narrative: Patient was arousable but was very somnolent. Her pupils were not pinpoint however medical record does show that she is on opioids. She was given 0.4 mg of Narcan and this arouse her to the point where she was alert oriented. She then became somnolent once again. During the time that she was aroused she was able to tolerate a small amount of oral intake however her blood sugar started to drop again. She was placed on a Narcan drip and also on a glucose infusion. Given her response to Narcan I have low suspicion for trauma and I do suspect that this is a situation where she has taken too much of her opioid medication and also her insulin and not eaten to keep her blood pressure up. I did discuss the case with Dr. Esqueda hospitalist on-call. We will admit for further evaluation and treatment. Discharge Plan Departure Patient Disposition: Admitted As Inpatient Clinical Impression: Hypoglycemia, Opioid overdose, Altered mental status Admit Date/Time: 05/06/23 16:33 Admit Provider: Andrea Esqueda
[2023-05-06] MEDS: SODIUM CHLORIDE 0.9% 1,000 ML 125 ML IV (14:55)
[2023-05-06] MEDS: DEXTROSE 10 % IN WATER 1,000 ML 84 ML IV (14:55)
[2023-05-06] MEDS: AMMONIA INHALANT 1 EACH INH (14:55)
[2023-05-06] MEDS: NALOXONE 0.4 MG/ML VIAL IV (14:55)
[2023-05-06 15:05] LABS: Add Manual Diff / Slide Review NO; Basophils Absolute Auto 0 /uL (0-100); Basophils Percent Auto 0.4 % (0-2); Eosinophils Absolute Auto 1400 /uL (0-450); Eosinophils Percent Auto 24.7 % (2-4); Hematocrit 39.8 % (36-46); Hemoglobin 13.4 g/dL (12.0-16.0); Lymphocytes Absolute Auto 1200 /uL (1100-4500); Lymphocytes Percent Auto 21.3 % (25-40); Mean Corpuscular HGB Conc 33.7 % (30-36); Mean Corpuscular Hemoglobin 28.6 PG (26-34); Mean Corpuscular Volume 84.8 fL (80-100); Monocytes Absolute Auto 400 /uL (0-900); Monocytes Percent Auto 6.6 % (3-14); Neutrophils Absolute Auto 2700 /uL (1500-7000); Platelet Count 216 X10^3/uL (150-400); Red Cell Distribution Width 14.7 % (11.6-14.8); White Blood Cell Count 5.6 X10^3/uL (4.5-11.0)
[2023-05-06 15:07] LABS: Acetaminophen < 10 ug/mL (10-30); Alanine Aminotransferase 20 IU/L (<35); Albumin 3.6 g/dL (3.5-5.0); Albumin Globulin Ratio 0.9 (1.0-2.8); Alkaline Phosphatase 52 U/L (38-126); Aspartate Aminotransferase 29 IU/L (14-36); BUN Creatinine Ratio 21.8 (6-22); Bilirubin Total 0.3 mg/dL (0.2-1.3); Blood Urea Nitrogen 12 mg/dL (7-17); Calcium 9.2 mg/dL (8.4-10.2); Carbon Dioxide 32 mmol/L (22-32); Chloride 98 mmol/L (98-107); Estimated Glomerular Filt Rate > 60 mL/min (>60); Ethanol (ETOH) < 10 mg/dL; Globulin 4.2 g/dL (1.7-4.1); Glucose 106 mg/dL (80-110); HEMOLYSIS < 15 (0-50); Lipase 30 U/L (23-300); Potassium 3.7 mmol/L (3.4-5.1); Salicylate < 1.0 mg/dL (<20); Sodium 138 mmol/L (137-145); Total Protein 7.8 g/dL (6.3-8.2)
[2023-05-06] MEDS: NALOXONE 2 MG in SODIUM CHLORIDE 0.9% 500 ML 62.5 MG IV (15:24)
--- NOTE | 2023-05-06 16:06 | P.HP_ITS ---
History of Present Illness History of Present Illness Date Patient Seen: 05/06/23 Time Patient Seen: 17:30 Chief complaint: Low Blood Sugar, Low Loc. Narrative: Alissa Kirby is a 72-year-old female smoker with COPD, Sjogren's disease, insulin-dependent diabetes, atrial flutter, hypothyroid, hyperlipidemia, chronic pain on opiate therapies, presented to the ED today with altered mental status. Patient reportedly sleeps during the day and is awake at night. tried to give her her morning medications but could not arouse her. Her glucose was in the 20s with EMS, given d50 with improvement. She remained sleepy in the emergency room, given 1 dose of narcan with improvement but then became drowsy after and she was started on a narcan infusion. Previous documentation does list concern for overmedication with narcotics. Patient is arousable now, states she does not recall anything since yesterday evening and had no recent complaints including chest pain, worsening of chronic shortness of breath, LE edema, orthopnea. She does report a lot of low blood sugars recently, did not adjust insulin therapy. CBC was unremarkable, as was presenting chemistries. UA grossly positive. UDS positive for opiates and amphetamines. History obtained via discussion with the ER provider, patient, and grandson. EKG - NSR with prolonged QtC at 513. CXR - some flattening of the diaphragm but no acute infiltrates or pulmonary edema. [facility] Medical History Depression Diabetes Fibromyalgia GERD (gastroesophageal reflux disease) Hyperlipidemia Hypothyroidism Meningioma Restless leg syndrome Sjogren's disease Sleep apnea Spinal stenosis, lumbar Venous stasis dermatitis of both lower extremities Surgical History H/O total hysterectomy History of cholecystectomy History of lymph node biopsy History of vein stripping Family History Mother Bowel obstruction Father Psychiatric disorder Brother Hypertension Sister Cancer Social History household members: spouse Smoking Status: Current some day smoker alcohol intake: never substance use type: does not use Meds Home Medications and Allergies Home Medications Medication Instructions Recorded Confirmed Type escitalopram oxalate 20 mg tablet 40 mg PO DAILY ##0 03/16/10 05/05/23 History (Lexapro) omeprazole 20 mg capsule,delayed 20 mg PO DAILY ##0 03/16/10 05/05/23 History release cevimeline 30 mg capsule 10 mg PO TID 06/24/18 05/05/23 History insulin aspart U-100 100 unit/mL 4 - 6 unit SUBCUT AC 06/24/18 05/05/23 History (3 mL) subcutaneous pen (Novolog FlexPen U-100 Insulin aspart) lisinopril 2.5 mg tablet 2.5 mg PO DAILY 06/24/18 05/05/23 History hydrocodone 5 mg-acetaminophen 325 1 tab PO TID #0 tabs 06/27/18 05/05/23 Rx mg tablet atorvastatin 20 mg tablet 20 mg PO DAILY 01/03/19 05/05/23 History insulin glargine 100 unit/mL (3 25 unit SUBCUT BEDTIME 01/03/19 05/05/23 History mL) subcutaneous pen (Lantus Solostar U-100 Insulin) morphine 15 mg tablet,extended 15 mg PO Q8H #30 tabs 01/09/19 05/05/23 Rx release (MS Contin) bupropion HCl 150 mg 24 hr tablet, 150 mg PO QAM 03/22/19 05/05/23 History extended release levothyroxine 125 mcg capsule 125 mcg PO DAILY #30 caps 03/26/19 05/05/23 Rx ondansetron 4 mg disintegrating 4 mg PO Q6H PRN nausea and 04/28/19 05/05/23 Rx tablet vomiting #20 tabs cyclobenzaprine 10 mg tablet 10 mg PO BEDTIME #10 tabs 02/12/20 05/05/23 Rx gabapentin 600 mg tablet 1,200 mg PO BEDTIME 12/13/20 05/05/23 History ascorbic acid (vitamin C) 500 mg 500 mg PO DAILY 06/30/22 05/05/23 History tablet (Vitamin C) cholecalciferol (vitamin D3) 25 25 mcg PO DAILY 06/30/22 05/05/23 History mcg (1,000 unit) tablet (Vitamin D3) vitamin B complex 1 tab PO DAILY 06/30/22 05/05/23 History Allergies Allergy/AdvReac Type Severity Reaction Status Date / Time sulfamethoxazole Allergy Verified 05/06/23 14:34 [From Bactrim] trimethoprim [From Bactrim] Allergy Verified 05/06/23 14:34 venlafaxine [From Effexor] AdvReac Verified 05/06/23 14:34 Review of Systems Review of Systems Narrative: All other systems reviewed with the patient and are negative unless otherwise stated. Exam Vital Signs (past 8 hours): - 05/06/23 14:18 05/06/23 14:30 05/06/23 14:30 Temperature 97.5 F L Pulse Rate 94 H 95 H Respiratory Rate 17 Blood Pressure 142/66 H 142/66 H Pulse Oximetry 87 L 80 L Oxygen Delivery Method Room Air 05/06/23 15:00 05/06/23 15:00 05/06/23 15:30 Temperature Pulse Rate 100 H Respiratory Rate 28 H Blood Pressure 128/71 115/68 Pulse Oximetry 93 Oxygen Delivery Method 05/06/23 15:30 05/06/23 16:00 05/06/23 16:00 Temperature Pulse Rate 95 H 96 H Respiratory Rate 22 22 Blood Pressure 144/73 H Pulse Oximetry 97 96 Oxygen Delivery Method Oxygen Delivery Method Room Air Narrative Exam Narrative: Gen: Alert but mildly ill-appearing 72 y.o. female, appears uncomfortable and in right lateral recumbent position. HEENT: normocephalic, atraumatic, conjunctiva clear, sclera non-icteric, oral mucosa pink and moist Neck: supple, full ROM, no JVD, trachea is midline Resp: Lungs CTA, non-labored breathing CV: RRR, no murmur or rubs Abd: soft, non-tender, non-distended Skin: no lesions or rashes, dry and intact Neuro: Alert and oriented w/no focal deficits. Speech soft but intellegible. Does fall asleep and moan. Moves all extremities equally with sensation intact to light touch. No deficits to cranial nerves. Extremities: no edema or joint effusions Objective ECG Impression: NSR with prolonged QT. Imaging Chest x-ray: My impression: flattening of the diaphragm, no acute infiltrates or pulmonary edema. Labs 05/06/23 14:35 05/06/23 14:35 Labs: Laboratory Results - last 24 hr 05/06/23 05/06/23 05/06/23 14:35 14:35 14:35 WBC 5.6 RBC 4.70 Hgb 13.4 Hct 39.8 MCV 84.8 MCH 28.6 MCHC 33.7 RDW 14.7 Plt Count 216 Neut % (Auto) 47.0 L Lymph % (Auto) 21.3 L [place] % (Auto) 6.6 Eos % (Auto) 24.7 H Baso % (Auto) 0.4 Neut # (Auto) 2700 Lymph # (Auto) 1200 [place] # (Auto) 400 Eos # (Auto) 1400 H Baso # (Auto) 0 Sodium 138 Potassium 3.7 Chloride 98 Carbon Dioxide 32 BUN 12 Creatinine 0.55 Estimated GFR > 60 BUN/Creatinine Ratio 21.8 Glucose 106 Lactate 1.0 Calcium 9.2 Total Bilirubin 0.3 AST 29 ALT 20 Alkaline Phosphatase 52 Total Protein 7.8 Albumin 3.6 Globulin 4.2 H Albumin/Globulin Ratio 0.9 L Lipase Salicylates Acetaminophen < 10 Ethyl Alcohol 05/06/23 14:35 WBC RBC Hgb Hct MCV MCH MCHC RDW Plt Count Neut % (Auto) Lymph % (Auto) [place] % (Auto) Eos % (Auto) Baso % (Auto) Neut # (Auto) Lymph # (Auto) [place] # (Auto) Eos # (Auto) Baso # (Auto) Sodium Potassium Chloride Carbon Dioxide BUN Creatinine Estimated GFR BUN/Creatinine Ratio Glucose Lactate Calcium Total Bilirubin AST ALT Alkaline Phosphatase Total Protein Albumin Globulin Albumin/Globulin Ratio Lipase 30 Salicylates < 1.0 Acetaminophen Ethyl Alcohol < 10 Assessment & Plan Assessment & Plan narrative: #Toxic AND metabolic encephalopathy secondary to polypharmacy and accidental opiate overdose with hypoglycemia with mild hypoxic respiratory failure - trial off of narcan infusion now to see if remains awake. If she becomes somnolent or difficult to arouse again restart. Remain in ICU overnight. - suspect multifactorial etiologies due to polypharmacy including opiates and hypoglycemia. - can lower d10 infusion to 40 cc per hour, if sugars continue to rise can discontinue. - currently on approx 1L via NC, goal O2 89-96% on supplemental therapy given COPD history. Chest xray without acute process, suspect due to encephalopathy and decreased respiratory drive. ABG with normal pH and PCO2 of 56, likely her baseline. - UA grossly positive, likely also contributing so will start on ceftriaxone. Obtain blood cultures as well, not drawn in ER. Cxr is negative. #COPD without exacerbation - ordered RT eval and treat - albuterol prn along with duonebs to replace home spiriva. #Type 1 diabetes with hypoglycemia - continue d10. - suspect hypoglycemia due to too much insulin use. Her weight measured is about 10 Kg lower than last admission. Reduce home lantus from 25 U to 10 U nightly, do not hold as she is type 1 and has prior admissions for DKA. - continue only sliding scale insulin for now. - blood sugar q2 while on d10 and after insulin given overnight. #Hypothyroidism, chronic Continue home dose of levothryoxine #Sjogren's disease, chronic continue home medications #Bipolar, chronic Continue home medications #HLD, chronic continue home statin #acute cystitis - follow up urine culture, continue ceftriaxone. Blood cultures ordered. Code: Full, surrogate is patient's I have utilized all available immediate resources to obtain, update, or review the patient's current medications. DVT: lovenox daily Dispo: Admitted ICU on [facility], inpatient. I spent 45 minutes providing critical care management this patient. This excludes time spent in performing separately billed procedures. Quality MIPS - Admit I confirm the patient?s Advance Care Plan is present, Code status is documented, Surrogate decision maker is in patient?s record [If Yes, STOP here]: Yes
--- NOTE | 2023-05-06 16:12 | PC.NURSE ---
Pt has been difficult to arouse, attempted to wake and feed pt, she had 2 spoonfuls of peanut butter, 1/2 apple juice and one bite of cheese. Family is with the patient and have encouraged to talk to her and wake her.
[2023-05-06 17:00] LABS: Fractionated Inspired Oxygen 23; HCO3 ABG 32 mmol/L (23-27); Oxygen Saturation ABG 87 % (95-100); PCO2 ABG 53.8 mmHg (35-45); PO2 ABG 56 mmHg (80-100); TCO2 ABG 33 mmol/L (23-27); pH ABG 7.38 (7.35-7.45)
[2023-05-06 17:19] LABS: Appearance Urine UA CLEAR; Bilirubin Urine UA NEGATIVE (NEGATIVE); Color Urine UA YELLOW; Glucose Urine UA NEGATIVE (Negative); Ketones Urine UA NEGATIVE (NEGATIVE); Leukocyte Esterase Urine UA 3+ (NEGATIVE); Nitrite Urine UA NEGATIVE (Negative); Occult Blood Urine UA NEGATIVE (Negative); Protein Urine UA NEGATIVE (Negative)
[2023-05-06] MEDS: ALBUTEROL/IPRATROPIUM 3 ML AMPUL INH (17:40)
[2023-05-06 17:46] LABS: UR Morphine/Opiate cutoff 300 Positive (Negative); Ur Creatinine Normal (Normal); Ur Specific Gravity Normal (Normal); Urine Amphetamines Positive (Negative); Urine Barbiturates Negative (Negative); Urine Benzodiazepines Negative (Negative); Urine Cocaine Negative (Negative); Urine MDMA Negative (Negative); Urine Methadone Negative (Negative); Urine Methamphetamines Negative (Negative); Urine Oxycodone Negative (Negative); Urine Phencyclidine Negative (Negative); Urine Tetrahydrocannabinol Negative (Negative); Urine Tricyclic Antidepressant Negative (Negative); Urine pH Normal (Normal)
[2023-05-06 17:47] LABS: Bacteria Urine Few (2-10); Culture Indicated Urine Specimen Cultured; RBC Urine 0-1/HPF (0-5/HPF); Squamous Epithelial Cell Urine 5-10 /HPF (0-5/HPF); Transitional Epi Cells Urine 5-10/HPF (0-5/HPF); WBC Urine 10-30/HPF (0-5/HPF)
[2023-05-06 17:52] LABS: Anisocytosis 1+; Neutrophils Absolute Manual 2800 /uL (3000-5900); Total Cells Counted 100
[2023-05-06] MEDS: cefTRIAXone 1,000 MG in SODIUM CHLORIDE 0.9% 100 ML 200 MG IV (18:51)
[2023-05-06] MEDS: DEXTROSE 10 % IN WATER 1,000 ML 40 ML IV (18:51)
[2023-05-06 19:22] LABS: MRSA (Nasal) PCR Not Detected (Not Detect)
[2023-05-06] MEDS: ACETAMINOPHEN 325 MG TABLET 650 MG PO (20:55)
[2023-05-06] MEDS: INSULIN GLARGINE 100 UNIT/ML 3ML PEN 10 UNIT SUBCUT (20:56)
[2023-05-06] MEDS: INSULIN LISPRO 100 UNIT/ML 3ML VIAL SUBCUT (20:57)
[2023-05-07] VITALS (8 sets, daily range): BP systolic 128–142; BP diastolic 66–75; PULSE 77–84; RESP 16–53; TEMP 36.4–36.6; O2SAT 93–95
[2023-05-07] MEDS: ALBUTEROL 2.5 MG/3 ML NEB (ADULT) INH (03:15)
[2023-05-07] MEDS: ACETAMINOPHEN 325 MG TABLET 650 MG PO (03:21)
[2023-05-07 05:00] LABS: Add Manual Diff / Slide Review NO; Basophils Absolute Auto 0 /uL (0-100); Basophils Percent Auto 0.7 % (0-2); Eosinophils Absolute Auto 300 /uL (0-450); Eosinophils Percent Auto 4.4 % (2-4); Hematocrit 40.2 % (36-46); Hemoglobin 13.6 g/dL (12.0-16.0); Lymphocytes Absolute Auto 2400 /uL (1100-4500); Lymphocytes Percent Auto 40.7 % (25-40); Mean Corpuscular HGB Conc 33.7 % (30-36); Mean Corpuscular Hemoglobin 28.5 PG (26-34); Mean Corpuscular Volume 84.6 fL (80-100); Monocytes Absolute Auto 500 /uL (0-900); Monocytes Percent Auto 8.1 % (3-14); Neutrophils Absolute Auto 2700 /uL (1500-7000); Neutrophils Percent Auto 46.1 % (50-75); Platelet Count 236 X10^3/uL (150-400); Red Blood Cell Count 4.75 X10^6/uL (4.0-5.2); Red Cell Distribution Width 14.6 % (11.6-14.8); White Blood Cell Count 5.9 X10^3/uL (4.5-11.0)
[2023-05-07 05:19] LABS: BUN Creatinine Ratio 25.6 (6-22); Blood Urea Nitrogen 11 mg/dL (7-17); Carbon Dioxide 27 mmol/L (22-32); Chloride 102 mmol/L (98-107); Estimated Glomerular Filt Rate > 60 mL/min (>60); Glucose 210 mg/dL (80-110); HEMOLYSIS < 15 (0-50); Magnesium 1.7 mg/dL (1.6-2.3); Sodium 135 mmol/L (137-145)
[2023-05-07 05:48] LABS: TSH w/ Reflex to FT4 0.31 uIU/mL (0.47-4.68)
[2023-05-07 07:25] LABS: Free T4, Direct Thyroxine 1.43 ng/dL (0.78-2.19)
[2023-05-07] MEDS: ALBUTEROL/IPRATROPIUM 3 ML AMPUL INH (07:48)
[2023-05-07] MEDS: ENOXAPARIN 40 MG/0.4 ML SYRINGE SUBCUT (08:34)
[2023-05-07] MEDS: MORPHINE ER 15 MG TABLET PO (08:34)
[2023-05-07] MEDS: HYDROCODONE/ACET 5/325 TABLET 1 TAB PO (10:00)
[2023-05-07] MEDS: BISACODYL 10 MG SUPP PR (10:00)
[2023-05-07] MEDS: MAGNESIUM CHLORIDE 64 MG TABLET 128 MG PO (10:24)
--- NOTE | 2023-05-07 11:25 | CM.DANOTE ---
Initial DCP Assessment Note Pt is a 72 yo female, resident of [place], presents via EMS for concern of passing out at home, low blood sugar w/altered mental status. Patient admitted for management of metabolic encephalopathy, suspected to be sec to polypharmacy and accidental opiate overdose and hypoglycemia. UDS positive for opiates and amphetamines. PCP: Brittany Warner, [facility] Payer: [employer] Reviewed chart, met w/patient, spouse Gurpreet and daughter Anny at bedside, introduced self and role. Patient lives with spouse Gurpreet, stays up most of the night and sleeps during the day. Patient says she has a tendency to forget things even when she writes them down. Spouse Gurpreet reviews how he found patient, passed out, and talks about how patient's blood sugar has not been properly checked r/t her sleep schedule. Patient qualifies for a glucose meter (to be placed on her arm per spouse?) but that patient needs to follow up with her PCP to get this ordered. Patient's daughter Anny takes this SCHOOL SECRETARY aside and expresses concern about spouse Gurpreet caring for patient as he is 11 years older and loosing executive function. Asked Anny if patient and spouse would consider an debridging machine operator? Anny responds by indicating she is the caregiver as long as patient will allow assistance. Patient and spouse agreeable to services, no agency preference. JIGNESH Larios, placed call to [facility] and they accepted this referral, follow up is scheduled for ThursdayMay 11. Updated RN Jaida and patient/family, [facility] brochure provided Plan: Discharge home w/spouse and family to assist, private vehicle, [facility]/PT/LAURIE Guerra Discharge Planning/Care Management CM Discharge Assessment Start: 05/07/23 09:13 Freq: Status: Active Protocol: Document 05/07/23 09:13 RAVIN (Rec: 05/07/23 09:41 RAVIN [id number]) Discharge Planning Assessment Assigned Soap Tender LAURIE Walsh/Assigned Designee Name santi Dawn Contact Information [phone] Advance Directives? Yes Advance Directives on File No History Provided By Patient,Family Member,Medical Record Prior Living Arrangements House Household Members spouse,family Type of transporation used prior to Relies on Others admit Independent with ADL's No: Needs assist w/higher ADLs r/t memory loss and poor activity tolerance Is patient alert and oriented? Yes: Has mild short term memory loss Needs Assistance With Bathing,Meal Prep,Managing Medications,Home Chores / Shopping Patient/Family Preference Home with Home Health Barriers to Discharge No Comment Home w/supportive spouse and daughter. Attempting to secure HH w/patient's [employer] MCR. Close outpatient f/u recommended Discharge Plan Home with Home Health Transportation Arrangement Spouse Referrals Initiated Home Health Additional Comment Patient's [employer] MCR may be a barrier to securing HH, [facility] have denied thus far, waiting on [facility] to respond SNF/HH Preference No HH agency preference
--- NOTE | 2023-05-07 15:53 | P.DS_ITS ---
History of Present Illness History of Present Illness Date Patient Seen: 05/07/23 Time Patient Seen: 08:45 Chief complaint: Low Blood Sugar, Low Loc. Narrative: Alissa Kirby is a 72-year-old female smoker with COPD, Sjogren's disease, insulin-dependent diabetes, atrial flutter, hypothyroid, hyperlipidemia, chronic pain on opiate therapies, presented to the ED today with altered mental status. Patient reportedly sleeps during the day and is awake at night. tried to give her her morning medications but could not arouse her. Her glucose was in the 20s with EMS, given d50 with improvement. She remained sleepy in the emergency room, given 1 dose of narcan with improvement but then became drowsy after and she was started on a narcan infusion. Previous documentation does list concern for overmedication with narcotics. Patient is arousable now, states she does not recall anything since yesterday evening and had no recent complaints including chest pain, worsening of chronic shortness of breath, LE edema, orthopnea. She does report a lot of low blood sugars recently, did not adjust insulin therapy. CBC was unremarkable, as was presenting chemistries. UA grossly positive. UDS positive for opiates and amphetamines. History obtained via discussion with the ER provider, patient, and grandson. EKG - NSR with prolonged QtC at 513. CXR - some flattening of the diaphragm but no acute infiltrates or pulmonary edema. Discharge Providers Provider Date of admission: 05/06/23 16:33 Discharge Date: 05/07/23 Primary care physician: Saundra Cortez PA-C Consults: 05/07/23 09:06 Consult to Home Health Routine Comment: Reason For Exam: Home Health RN/PT/PATENT [place] Discharge provider: Andrea Esqueda DO Summary Hospital Course Discharge Diagnosis: #Toxic AND metabolic encephalopathy secondary to polypharmacy and accidental opiate overdose with hypoglycemia with mild hypoxic respiratory failure ? #COPD without exacerbation #Type 1 diabetes with hypoglycemia #Hypothyroidism, chronic #Sjogren's disease, chronic #Bipolar, chronic #HLD, chronic #acute cystitis Hospital Course: 72 year old female with DM1, COPD, chronic pain with opiate use, Bipolar disorder, Sjogrens, hypothyroid admitted with a multifactorial encephalopathy. Etiologies are suspected to be due to excess opiate use for her chronic pain, combined with hypoglycemia, polypharmacy, and possibly acute cystitis. She was placed on a narcan infusion with improvement, as well as d10 infusion. She was able to be quickly taken off of these infusions and her home lantus was given at 10 U here initially to avoid hypoglycemia. She reports fairly marked weight loss, and is noted to be about 10 Kg less than her prior admission. Her home lantus is recommended to be reduced from 25 U to 15 U at discharge. respiratory failure is suspected to be due to opiate use and encephalopathy as it also improved the following day. She improved more quickly than expected and was able to return home the day after admission. I recommended she cut her morphine and hydrocodone/tylenol prescriptions and try to continue to use less opiate therapy at home. Home health referral was mad as well. For her acute cystitis, based on prior cultures she was discharged on a 5 day course of amoxicillin - pot clavulanate and was given a dose of ceftriaxone here in the hospital. She should follow up with primary care for continued diabetes management and chronic pain medication management. Time Spent with Patient Time spent: Greater than 30 minutes Exam Vital Signs (past 8 hours): - 05/07/23 08:00 05/07/23 08:00 05/07/23 08:00 Temperature 97.8 F Pulse Rate 82 Respiratory Rate 22 Blood Pressure 132/66 Pulse Oximetry 94 Fraction of Inspired Oxygen 28 SaO2/FiO2 Ratio 339 Oxygen Delivery Method Nasal Cannula Oxygen Flow Rate 2 Narrative Exam Narrative: Gen: Alert but mildly ill-appearing 72 y.o. female, no acute distress HEENT: normocephalic, atraumatic, conjunctiva clear, sclera non-icteric, oral mucosa pink and moist Neck: supple, full ROM, no JVD, trachea is midline Resp: Lungs CTA, non-labored breathing CV: RRR, no murmur or rubs Abd: soft, non-tender, non-distended Skin: no lesions or rashes, dry and intact Neuro: Alert and oriented w/no focal deficits. Speech soft but intellegible. Moves all extremities equally with sensation intact to light touch. No deficits to cranial nerves. Extremities: no edema or joint effusions Objective Labs 05/07/23 04:40 05/07/23 04:40 Labs: Laboratory Results - last 24 hr 05/06/23 05/06/23 05/06/23 14:35 16:10 17:02 WBC RBC Hgb Hct MCV MCH MCHC RDW Plt Count Neut % (Auto) Lymph % (Auto) [place] % (Auto) Eos % (Auto) Baso % (Auto) Neut # (Auto) Lymph # (Auto) [place] # (Auto) Eos # (Auto) Baso # (Auto) Total Counted 100 Seg Neutrophils % 50.0 Lymphocytes % (Manual) 13.0 L Atypical Lymphs % 2.0 H Monocytes % (Manual) 8.0 Eosinophils % (Manual) 27.0 H Neutrophils # (Manual) 2800 L RBC Morphology See below Anisocytosis 1+ H ABG pH 7.38 ABG pCO2 53.8 H ABG pO2 56 L ABG HCO3 32 H ABG Total CO2 33 H ABG O2 Saturation 87 L ABG Base Excess 6.0 H FiO2 23 Sodium Potassium Chloride Carbon Dioxide BUN Creatinine Estimated GFR BUN/Creatinine Ratio Glucose Calcium Magnesium TSH Free T4 Urine Color Yellow Urine Appearance Clear Urine pH 7.0 Ur Specific [place] 1.010 Urine Protein Negative Urine Glucose (UA) Negative Urine Ketones Negative Urine Occult Blood Negative Urine Nitrate Negative Urine Bilirubin Negative Urine Urobilinogen 1.0 Ur Leukocyte Esterase 3+ H Urine RBC 0-1/hpf Urine WBC 10-30/hpf H Ur Squamous Epith Cells 5-10 /hpf H Ur Transition Epith Cell 5-10/hpf H Urine Bacteria Few (2-10) H Ur Culture Indicated? Specimen cultured Nasal Screen MRSA (PCR) U Opiates 300ng/mL cut Ur Oxycodone Screen Urine Methadone Screen Ur Barbiturates Screen U Tricyclic Antidepress Ur Phencyclidine Scrn Ur Amphetamines Screen U Methamphetamines Scrn Ur MDMA Scrn (Ecstasy) U Benzodiazepines Scrn Urine Cocaine Screen U Marijuana (THC) Screen 05/06/23 05/06/23 05/07/23 17:02 17:14 04:40 WBC 5.9 RBC 4.75 Hgb 13.6 Hct 40.2 MCV 84.6 MCH 28.5 MCHC 33.7 RDW 14.6 Plt Count 236 Neut % (Auto) 46.1 L Lymph % (Auto) 40.7 H [place] % (Auto) 8.1 Eos % (Auto) 4.4 H Baso % (Auto) 0.7 Neut # (Auto) 2700 Lymph # (Auto) 2400 [place] # (Auto) 500 Eos # (Auto) 300 Baso # (Auto) 0 Total Counted Seg Neutrophils % Lymphocytes % (Manual) Atypical Lymphs % Monocytes % (Manual) Eosinophils % (Manual) Neutrophils # (Manual) RBC Morphology Anisocytosis ABG pH ABG pCO2 ABG pO2 ABG HCO3 ABG Total CO2 ABG O2 Saturation ABG Base Excess FiO2 Sodium Potassium Chloride Carbon Dioxide BUN Creatinine Estimated GFR BUN/Creatinine Ratio Glucose Calcium Magnesium TSH Free T4 Urine Color Urine Appearance Urine pH Ur Specific [place] Urine Protein Urine Glucose (UA) Urine Ketones Urine Occult Blood Urine Nitrate Urine Bilirubin Urine Urobilinogen Ur Leukocyte Esterase Urine RBC Urine WBC Ur Squamous Epith Cells Ur Transition Epith Cell Urine Bacteria Ur Culture Indicated? Nasal Screen MRSA (PCR) Not detected U Opiates 300ng/mL cut Positive H Ur Oxycodone Screen Negative Urine Methadone Screen Negative Ur Barbiturates Screen Negative U Tricyclic Antidepress Negative Ur Phencyclidine Scrn Negative Ur Amphetamines Screen Positive H U Methamphetamines Scrn Negative Ur MDMA Scrn (Ecstasy) Negative U Benzodiazepines Scrn Negative Urine Cocaine Screen Negative U Marijuana (THC) Screen Negative 05/07/23 05/07/23 04:40 04:40 WBC RBC Hgb Hct MCV MCH MCHC RDW Plt Count Neut % (Auto) Lymph % (Auto) [place] % (Auto) Eos % (Auto) Baso % (Auto) Neut # (Auto) Lymph # (Auto) [place] # (Auto) Eos # (Auto) Baso # (Auto) Total Counted Seg Neutrophils % Lymphocytes % (Manual) Atypical Lymphs % Monocytes % (Manual) Eosinophils % (Manual) Neutrophils # (Manual) RBC Morphology Anisocytosis ABG pH ABG pCO2 ABG pO2 ABG HCO3 ABG Total CO2 ABG O2 Saturation ABG Base Excess FiO2 Sodium 135 L Potassium 4.0 Chloride 102 Carbon Dioxide 27 BUN 11 Creatinine 0.43 L Estimated GFR > 60 BUN/Creatinine Ratio 25.6 H Glucose 210 H D Calcium 9.0 Magnesium 1.7 TSH 0.31 L Free T4 1.43 Urine Color Urine Appearance Urine pH Ur Specific [place] Urine Protein Urine Glucose (UA) Urine Ketones Urine Occult Blood Urine Nitrate Urine Bilirubin Urine Urobilinogen Ur Leukocyte Esterase Urine RBC Urine WBC Ur Squamous Epith Cells Ur Transition Epith Cell Urine Bacteria Ur Culture Indicated? Nasal Screen MRSA (PCR) U Opiates 300ng/mL cut Ur Oxycodone Screen Urine Methadone Screen Ur Barbiturates Screen U Tricyclic Antidepress Ur Phencyclidine Scrn Ur Amphetamines Screen U Methamphetamines Scrn Ur MDMA Scrn (Ecstasy) U Benzodiazepines Scrn Urine Cocaine Screen U Marijuana (THC) Screen PFSH Medical History Depression Diabetes Fibromyalgia GERD (gastroesophageal reflux disease) Hyperlipidemia Hypothyroidism Meningioma Restless leg syndrome Sjogren's disease Sleep apnea Spinal stenosis, lumbar Venous stasis dermatitis of both lower extremities Surgical History H/O total hysterectomy History of cholecystectomy History of lymph node biopsy History of vein stripping Family History Mother Bowel obstruction Father Psychiatric disorder Brother Hypertension Sister Cancer Social History household members: spouse and family Smoking Status: Former smoker alcohol intake: never substance use type: does not use Discharge Plan Discharge Plan Patient Disposition: Home Health Service Transfer to: [facility] and Healthcare Provider Discharge Comment: You were admitted to the hospital with confusion, likely due to overdosing of pain medications in combination with low blood sugar and a UTI. please reschedule follow up with [employer] for vaginal prolapse. Antibiotics prescribed for UTI. Your home lantus was decreased. Continue to make adjustments. If sugars are >250, you can go back up to 17 U. Please follow up with primary care for continued adjustments. Discharge orders & Medications Prescriptions: New amoxicillin-pot clavulanate 875-125 mg tablet 1 tab PO BID 5 Days Qty: 10 0RF Continued omeprazole 20 mg Capsule,Delayed Release(Dr/Ec) 20 mg PO DAILY Qty: 0 escitalopram oxalate [Lexapro] 20 mg Tablet 40 mg PO DAILY Qty: 0 Rx Instructions: Take 2 tablets by mouth once daily at 3PM cevimeline 30 mg Capsule 10 mg PO TID lisinopril 2.5 mg Tablet 2.5 mg PO DAILY insulin aspart U-100 [Novolog FlexPen U-100 Insulin] 100 unit/mL Insulin Pen 4 - 6 unit SUBCUT AC Patient Comments: takes it with meals. atorvastatin 20 mg Tablet 20 mg PO DAILY ondansetron 4 mg tablet,disintegrating 4 mg PO Q6H PRN (Reason: nausea and vomiting) Qty: 20 0RF ascorbic acid (vitamin C) [Vitamin C] 500 mg Tablet 500 mg PO DAILY Patient Comments: PT TO VERIFY DOSE vitamin B complex Tablet 1 tab PO DAILY cholecalciferol (vitamin D3) [Vitamin D3] 25 mcg (1,000 unit) Tablet 25 mcg PO DAILY bupropion HCl 150 mg Tablet Extended Release 24 Hr 150 mg PO QAM levothyroxine 125 mcg capsule 125 mcg PO DAILY Qty: 30 0RF cyclobenzaprine 10 mg tablet 10 mg PO BEDTIME Qty: 10 0RF gabapentin 600 mg tablet 1,200 mg PO BEDTIME Changed hydrocodone-acetaminophen 5-325 mg Tablet 1 tab PO TID PRN (Reason: Moderate Pain (Scale Score 5-6)) Qty: 7 0RF Patient Comments: Pt states she takes 1 hydrocodone/acetaminophen 5/500 mg tab PO TID morphine [MS Contin] 15 mg tablet extended release 15 mg PO BID Qty: 30 0RF Rx Instructions: 0400, 1200, 2000 insulin glargine [Lantus Solostar U-100 Insulin] 100 unit/mL (3 mL) insulin pen 15 unit SUBCUT BEDTIME Qty: 15 0RF Follow up/Referrals: Saundra Cortez, PACindyC [Primary Care Provider] - Diet/Activity/Treatments Diet: Diet as Tolerated and Carb-consistent/Diabetic Activity: As tolerated no restrictions Visit Report/Discharge Packet Instructions: DI for Prescription Opioid Use Stand Alone Forms: Patient Portal/API, Stroke Signs & Symptoms Discharge Data Primary Care Provider: Saundra Cortez Discharges patient from system. Discharge Date/Time: 05/07/23 11:30
== END 2023-05-07 11:30 | disposition home health service (06) | DRG 917 ==
LOC: ED 16:22 → AC 16:35 → ICU 16:53
PROVIDERS: Admitting Provider Internal Medicine; Emergency Provider Emergency Medicine; Family Provider Internal Medicine; PCP Physician Assistant; Referring Provider Emergency Medicine; Visit Provider Internal Medicine
DX: T40.601A Poisoning by unspecified narcotics, accidental (unintentional), initial encounter (principal); G92.8 Other toxic encephalopathy; G93.41 Metabolic encephalopathy; J96.91 Respiratory failure, unspecified with hypoxia; N30.00 Acute cystitis without hematuria; F17.210 Nicotine dependence, cigarettes, uncomplicated; J44.9 Chronic obstructive pulmonary disease, unspecified; E10.649 Type 1 diabetes mellitus with hypoglycemia without coma; E03.9 Hypothyroidism, unspecified; M35.00 Sjogren syndrome, unspecified; F31.9 Bipolar disorder, unspecified; E78.5 Hyperlipidemia, unspecified; K21.9 Gastro-esophageal reflux disease without esophagitis; G25.81 Restless legs syndrome
CPT/HCPCS: 36415; 36600; 71045; 80048; 80053; 80305; 80320; 80329; 81001; 82805; 82962; 83605; 83690; 83735; 84439; 84443; 85007; 85025; 87040; 87086; 87797; 93005; 94640; 96365; 96375; 99284; G0480; J0696; J1650; J1815; J2310; J7613

== ENCOUNTER → 2023-05-22 15:11 | Outpatient (CLI) | payer OTHER, SELFPAY ==
[2023-05-14 16:58] VITALS: BMI 19.4
== END ==
PROVIDERS: Family Provider Internal Medicine; PCP Physician Assistant; Visit Provider Student in an Organized Health Care Education/Training Program
DX: R35.0 Frequency of micturition (principal)
CPT/HCPCS: 87086

== ENCOUNTER 2023-07-22 21:25 | Emergency (ER) | payer OTHER, SELFPAY ==
[2023-05-14 16:58] VITALS: BMI 19.4
[2023-07-22 21:38] VITALS: BP 140/66; PULSE 99; RESP 14; TEMP 36.6; O2SAT 96; BMI 21.2
--- NOTE | 2023-07-22 22:06 | ED.SKABFB ---
HPI - Skin/Abscess/Foreign Bdy General Chief complaint: Skin/Abscess/Foreign Body Stated complaint: cellulitis rt leg Time Seen by Provider: 07/22/23 21:57 Source: patient Mode of arrival: Ambulatory History of Present Illness HPI narrative: 73-year-old female with history of type 1 diabetes, venous stasis dermatitis, fibromyalgia presents by private vehicle from home for red area on her lower extremity. She states she is concerned that this is cellulitis and will lead to sepsis. She states she is been on Keflex and doxycycline but it is not improving. It is more or less the same. She reports chronic lower extremity swelling of her left leg, but it is slightly larger than usual. Denies fevers, chills, other complaints. Related Data Home Medications Medication Instructions Recorded Confirmed escitalopram oxalate 20 mg tablet 40 mg PO DAILY ##0 03/16/10 07/08/23 (Lexapro) omeprazole 20 mg capsule,delayed 20 mg PO DAILY ##0 03/16/10 07/08/23 release cevimeline 30 mg capsule 10 mg PO TID 06/24/18 07/08/23 insulin aspart U-100 100 unit/mL 4 - 6 unit SUBCUT AC 06/24/18 07/08/23 (3 mL) subcutaneous pen (Novolog FlexPen U-100 Insulin aspart) lisinopril 2.5 mg tablet 2.5 mg PO DAILY 06/24/18 07/08/23 atorvastatin 20 mg tablet 20 mg PO DAILY 01/03/19 07/08/23 bupropion HCl 150 mg 24 hr tablet, 150 mg PO QAM 03/22/19 07/08/23 extended release gabapentin 600 mg tablet 1,200 mg PO BEDTIME 12/13/20 07/08/23 ascorbic acid (vitamin C) 500 mg 500 mg PO DAILY 06/30/22 07/08/23 tablet (Vitamin C) cholecalciferol (vitamin D3) 25 25 mcg PO DAILY 06/30/22 07/08/23 mcg (1,000 unit) tablet (Vitamin D3) vitamin B complex 1 tab PO DAILY 06/30/22 07/08/23 Previous Rx's Medication Instructions Recorded levothyroxine 125 mcg capsule 125 mcg PO DAILY #30 caps 03/26/19 ondansetron 4 mg disintegrating 4 mg PO Q6H PRN nausea and 04/28/19 tablet vomiting #20 tabs cyclobenzaprine 10 mg tablet 10 mg PO BEDTIME #10 tabs 02/12/20 hydrocodone 5 mg-acetaminophen 325 1 tab PO TID PRN Moderate Pain 05/07/23 mg tablet (Scale Score 5-6) #7 tabs insulin glargine 100 unit/mL (3 15 unit (0.15 mL) SUBCUT BEDTIME 05/07/23 mL) subcutaneous pen (Lantus #15 mL Solostar U-100 Insulin) morphine 15 mg tablet,extended 15 mg PO BID #30 tabs 05/07/23 release (MS Contin) oxyquinoline 0.025 %-sodium lauryl 1 ea vaginal 2XW #113.4 grams 06/24/23 sulfate 0.01 % vaginal gel Allergies Allergy/AdvReac Type Severity Reaction Status Date / Time sulfamethoxazole Allergy Verified 07/08/23 14:25 [From Bactrim] trimethoprim [From Bactrim] Allergy Verified 07/08/23 14:25 venlafaxine [From Effexor] AdvReac Verified 07/08/23 14:25 Review of Systems Review of Systems Narrative: Negative except as noted above Patient History Medical History Hyperlipidemia Hypothyroidism Venous stasis dermatitis of both lower extremities Restless leg syndrome Fibromyalgia Meningioma Spinal stenosis, lumbar Sleep apnea Sjogren's disease Depression GERD (gastroesophageal reflux disease) Diabetes Surgical History History of vein stripping History of cholecystectomy History of lymph node biopsy H/O total hysterectomy Family History Mother Bowel obstruction Father Psychiatric disorder Brother Hypertension Sister Cancer Social History household members: spouse and family Smoking Status: Former smoker alcohol intake: never substance use type: does not use Smoking Status: Former smoker tobacco type: cigarettes alcohol intake frequency: holidays/special occasions only Substance Use Type: does not use Exam Initial Vital Signs Initial Vital Signs: Vital Signs Temperature 97.9 F 07/22/23 21:38 Pulse Rate 99 H 07/22/23 21:38 Respiratory Rate 14 07/22/23 21:38 Blood Pressure 140/66 07/22/23 21:38 Pulse Oximetry 96 07/22/23 21:38 Oxygen Delivery Method Room Air 07/22/23 21:38 Const: Awake, alert, no acute distress, frail, nontoxic appearing Eyes: PERRL, EOMI, conjunctiva normal ENT: Atraumatic, dentition normal, mucous membranes moist Cardiac: regular rate, regular rhythm RESP: unlabored, clear bilaterally, no wheezing GI: Atraumatic, soft, nontender, nondistended, no rebound, no guarding MSK: Atraumatic, full range of motion, pulses equal Skin: Warm, Dry, intact, erythema of anterior distal right lower extremity, noncircumferential Neuro: AO x3, CN II-XII grossly intact, moves all extremities Psych: affect normal, mood normal, not suicidal, not homicidal Course Orders Ordered: ED Orders 07/22/23 22:16 perip venous low extrem rt Stat 07/22/23 22:40 CBC Auto Diff [Complete Blood Count AUTO DIFF] Stat CMP [Comprehensive Metabolic Panel] Stat Vital Signs Vital signs: Vital Signs - 8 hr 07/22/23 21:38 07/23/23 00:43 Temperature 97.9 F 98 F Pulse Rate 99 H 88 Respiratory Rate 14 18 Blood Pressure 140/66 136/84 Pulse Oximetry 96 98 Oxygen Delivery Method Room Air Room Air MDM - Skin/Abscess/Foreign Bdy Differential Diagnosis Differential diagnosis: Likely abscess of skin or subcutaneous tissue, urticaria and contact dermatitis Lab Data 07/22/23 22:40 07/22/23 22:40 Labs: Lab Results 07/22/23 Range/Units 22:40 WBC 5.6 (4.5-11.0) X10^3/uL RBC 4.12 (4.0-5.2) X10^6/uL Hgb 11.9 L (12.0-16.0) g/dL Hct 34.9 L (36-46) % MCV 84.9 (80-100) fL MCH 29.0 (26-34) PG MCHC 34.2 (30-36) % RDW 13.5 (11.6-14.8) % Plt Count 243 (150-400) X10^3/uL Neut % (Auto) Not Reportable Lymph % (Auto) Not Reportable [place] % (Auto) Not Reportable Eos % (Auto) Not Reportable Baso % (Auto) Not Reportable Lymph # (Auto) Not Reportable [place] # (Auto) Not Reportable Baso # (Auto) Not Reportable Total Counted 100 Seg Neutrophils % 33.0 L (38-70) % Lymphocytes % (Manual) 47.0 H (25-45) % Monocytes % (Manual) 3.0 (2-11) % Eosinophils % (Manual) 17.0 H (2-4) % Neutrophils # (Manual) 1848 L (8953-8939) /uL RBC Morphology See below Anisocytosis 1+ H Tear Drop Cells 1+ H Ovalocytes 1+ H Sodium 137 (137-145) mmol/L Potassium 4.4 (3.4-5.1) mmol/L Chloride 100 (98-107) mmol/L Carbon Dioxide 32 (22-32) mmol/L BUN 16 (7-17) mg/dL Creatinine 0.52 (0.52-1.04) mg/dL Estimated GFR > 60 (>60) mL/min BUN/Creatinine Ratio 30.8 H (6-22) Glucose 112 H (80-110) mg/dL Calcium 9.5 (8.4-10.2) mg/dL Total Bilirubin 0.4 (0.2-1.3) mg/dL AST 24 (14-36) IU/L ALT 20 (<35) IU/L Alkaline Phosphatase 46 (38-126) U/L Total Protein 7.9 (6.3-8.2) g/dL Albumin 3.5 (3.5-5.0) g/dL Globulin 4.4 H (1.7-4.1) g/dL Albumin/Globulin Ratio 0.8 L (1.0-2.8) MDM Narrative Medical decision making narrative: Well-appearing patient with persistent red area on her distal anterior right lower extremity. Patient has been on doxycycline for the last approximately 5 days, she states that the red area has been stable but does not seem to be resolving. It is slightly warm to the touch, however patient also reports that her right lower extremity has chronic lymphedema. This could possibly be venous stasis dermatitis. We will order labs and ultrasound imaging Laboratory work shows no leukocytosis, no severe derangements and glucose. Ultrasound is negative for acute findings, no evidence of DVT. Patient is on appropriate therapy for cellulitis, and in addition I suspect that there is a component of venous stasis contributing to this erythematous area. Patient was counseled on labs and imaging, she is in agreement with continuing her doxycycline as she states that by now if it was truly infected per her usual course she would have developed sepsis by now. Patient will call her primary care physician for follow up appointment. Wound care instructions discussed at bedside, red flag signs of spreading infection discussed with patient and at bedside. Discharge Plan Departure Patient Disposition: Home Clinical Impression: Cellulitis Instructions: DI for Cellulitis -- Adult Prescriptions: No Action omeprazole 20 mg Capsule,Delayed Release(Dr/Ec) 20 mg PO DAILY Qty: 0 escitalopram oxalate [Lexapro] 20 mg Tablet 40 mg PO DAILY Qty: 0 Rx Instructions: Take 2 tablets by mouth once daily at 3PM oxyquinoline-sod.lauryl sulfat 0.025-0.01 % gel 1 ea vaginal 2XW Qty: 113.4 3RF Rx Instructions: Use one applicator full 1-2 times weekly cevimeline 30 mg Capsule 10 mg PO TID lisinopril 2.5 mg Tablet 2.5 mg PO DAILY insulin aspart U-100 [Novolog FlexPen U-100 Insulin] 100 unit/mL Insulin Pen 4 - 6 unit SUBCUT AC Patient Comments: takes it with meals. atorvastatin 20 mg Tablet 20 mg PO DAILY ondansetron 4 mg tablet,disintegrating 4 mg PO Q6H PRN (Reason: nausea and vomiting) Qty: 20 0RF ascorbic acid (vitamin C) [Vitamin C] 500 mg Tablet 500 mg PO DAILY Patient Comments: PT TO VERIFY DOSE vitamin B complex Tablet 1 tab PO DAILY cholecalciferol (vitamin D3) [Vitamin D3] 25 mcg (1,000 unit) Tablet 25 mcg PO DAILY bupropion HCl 150 mg Tablet Extended Release 24 Hr 150 mg PO QAM levothyroxine 125 mcg capsule 125 mcg PO DAILY Qty: 30 0RF cyclobenzaprine 10 mg tablet 10 mg PO BEDTIME Qty: 10 0RF gabapentin 600 mg tablet 1,200 mg PO BEDTIME hydrocodone-acetaminophen 5-325 mg Tablet 1 tab PO TID PRN (Reason: Moderate Pain (Scale Score 5-6)) Qty: 7 0RF Patient Comments: Pt states she takes 1 hydrocodone/acetaminophen 5/500 mg tab PO TID morphine [MS Contin] 15 mg tablet extended release 15 mg PO BID Qty: 30 0RF Rx Instructions: 0400, 1200, 2000 insulin glargine [Lantus Solostar U-100 Insulin] 100 unit/mL (3 mL) insulin pen 15 unit SUBCUT BEDTIME Qty: 15 0RF Referrals: Saundra Cortez PA-C [Primary Care Provider] - Stand Alone Forms: Patient Portal/API
--- NOTE | 2023-07-22 22:16 | DI.US.S_ITS ---
PROCEDURE: US PERIPH VENOUS LOW EXTREM RT INDICATIONS: RLE SWELLING, ERYTHEMA TECHNIQUE: Real-time imaging, as well as color and pulse Doppler interrogation, were performed of the lower extremity deep veins from the inguinal ligament to the popliteal fossa, with documentation of the visualized calf veins. COMPARISON: None. FINDINGS: The common femoral, femoral, popliteal, and the visualized calf veins are normally compressible, and free of intraluminal thrombus. Color and pulse Doppler demonstrate normal phasic intraluminal flow. There is normal augmentation response to distal compression maneuver. IMPRESSION: No findings of lower extremity deep venous thrombosis. Dictated by: Waldemar Ramon M.D. on 07/23/2023 at 0:29 Approved by: Waldemar Ramon M.D. on 07/23/2023 at 0:29
[2023-07-22 22:54] LABS: Hematocrit 34.9 % (36-46); Hemoglobin 11.9 g/dL (12.0-16.0); Mean Corpuscular HGB Conc 34.2 % (30-36); Mean Corpuscular Volume 84.9 fL (80-100); Platelet Count 243 X10^3/uL (150-400); Red Blood Cell Count 4.12 X10^6/uL (4.0-5.2); Red Cell Distribution Width 13.5 % (11.6-14.8); White Blood Cell Count 5.6 X10^3/uL (4.5-11.0)
[2023-07-22 23:02] LABS: Alanine Aminotransferase 20 IU/L (<35); Albumin 3.5 g/dL (3.5-5.0); Albumin Globulin Ratio 0.8 (1.0-2.8); Alkaline Phosphatase 46 U/L (38-126); Aspartate Aminotransferase 24 IU/L (14-36); BUN Creatinine Ratio 30.8 (6-22); Bilirubin Total 0.4 mg/dL (0.2-1.3); Blood Urea Nitrogen 16 mg/dL (7-17); Calcium 9.5 mg/dL (8.4-10.2); Carbon Dioxide 32 mmol/L (22-32); Chloride 100 mmol/L (98-107); Estimated Glomerular Filt Rate > 60 mL/min (>60); Globulin 4.4 g/dL (1.7-4.1); Glucose 112 mg/dL (80-110); HEMOLYSIS < 15 (0-50); Potassium 4.4 mmol/L (3.4-5.1); Sodium 137 mmol/L (137-145); Total Protein 7.9 g/dL (6.3-8.2)
[2023-07-22 23:03] LABS: Add Manual Diff / Slide Review YES
[2023-07-22 23:28] LABS: Neutrophils Absolute Manual 1848 /uL (3000-5900); Total Cells Counted 100
[2023-07-22 23:29] LABS: Anisocytosis 1+; Ovalocytes 1+; Tear Drop Cells 1+
[2023-07-23 00:43] VITALS: BP 136/84; PULSE 88; RESP 18; TEMP 36.6; O2SAT 98
== END 2023-07-23 00:44 | disposition home or self-care (01) ==
PROVIDERS: Emergency Provider Emergency Medicine; Family Provider Internal Medicine; PCP Physician Assistant
DX: L03.115 Cellulitis of right lower limb (principal)
CPT/HCPCS: 80053; 85007; 85025; 93971; 99281; 99284

== ENCOUNTER → 2023-07-30 14:09 | Outpatient (CLI) | payer OTHER, SELFPAY ==
[2023-05-14 16:58] VITALS: BMI 19.4
== END ==
PROVIDERS: Family Provider Internal Medicine; PCP Physician Assistant; Referring Provider Physician Assistant; Visit Provider Surgery
DX: I87.321 Chronic venous hypertension (idiopathic) with inflammation of right lower extremity (principal); R60.0 Localized edema
CPT/HCPCS: 29581; 99213

== ENCOUNTER → 2023-08-03 15:19 | Outpatient (CLI) | payer OTHER, SELFPAY ==
[2023-05-14 16:58] VITALS: BMI 19.4
== END ==
PROVIDERS: Family Provider Internal Medicine; PCP Physician Assistant; Visit Provider Surgery
DX: R60.0 Localized edema (principal)
CPT/HCPCS: 29581

== ENCOUNTER → 2023-08-12 15:28 | Outpatient (CLI) | payer OTHER, SELFPAY ==
[2023-05-14 16:58] VITALS: BMI 19.4
== END ==
PROVIDERS: Family Provider Internal Medicine; PCP Physician Assistant; Referring Provider Physician Assistant; Visit Provider Surgery
DX: R60.0 Localized edema (principal)
CPT/HCPCS: 29581

== ENCOUNTER → 2023-08-27 14:18 | Outpatient (CLI) | payer OTHER, SELFPAY ==
[2023-05-14 16:58] VITALS: BMI 19.4
== END ==
PROVIDERS: Family Provider Internal Medicine; PCP Physician Assistant; Visit Provider Surgery
DX: R60.0 Localized edema (principal); I87.2 Venous insufficiency (chronic) (peripheral); E10.628 Type 1 diabetes mellitus with other skin complications; Z87.891 Personal history of nicotine dependence
CPT/HCPCS: 99213

== ENCOUNTER 2023-10-17 16:22 | Observation (INO) | payer OTHER, SELFPAY ==
[2023-05-14 16:58] VITALS: BMI 19.4
[2023-10-17] VITALS (13 sets, daily range): BP systolic 93–147; BP diastolic 54–80; PULSE 87–93; RESP 15–27; TEMP 37.3–37.5; O2SAT 87–95; BMI 23.2
[2023-10-17] MEDS: SODIUM CHLORIDE 0.9% 1,000 ML 700 ML IV (16:30)
--- NOTE | 2023-10-17 16:37 | ED.GENADULT ---
HPI - General Adult General Chief complaint: Altered Mental Status Stated complaint: T101.2 UTI/tired Time Seen by Provider: 10/17/23 16:35 History of Present Illness HPI narrative: 73-year-old female with history of opiate overdose, hypoglycemia, COPD, KELLIE, hypothyroidism, diabetes, DKA, sepsis presents with altered mental status. She seems sleepy on initial assessment on exam, repeatedly falling asleep. Her medication list contains morphine, insulin, hydrocodone-acetaminophen, Flexeril, bupropion. She denies any pain, shortness of breath, fevers or chills, nausea or vomiting, trauma, thoughts of hurting herself, overdose attempts, extra medications taken recently, or any other changes. However, she is clearly confused on exam. Per report, EMS was called and noted blood sugar in 100s. No other available history currently. I called her daughter on phone and spoke with her. Daughter states she last spoke to her mother a few days ago and that she seemed OK at the time. She states her memory has not been good though. She has been complaining of malaise but unable to specify further what she has been feeling. She has been feeling like her liver is not doing well and reported possibly trying to detox, perhaps with milk thistle supplement. She is full code. Daughter will go to patient's house to assess if there are any other new medications there then call us. Related Data Home Medications Medication Instructions Recorded Confirmed escitalopram oxalate 20 mg tablet 40 mg PO DAILY ##0 03/16/10 09/11/23 (Lexapro) omeprazole 20 mg capsule,delayed 20 mg PO DAILY ##0 03/16/10 09/11/23 release cevimeline 30 mg capsule 10 mg PO TID 06/24/18 09/11/23 insulin aspart U-100 100 unit/mL 4 - 6 unit SUBCUT AC 06/24/18 09/11/23 (3 mL) subcutaneous pen (Novolog FlexPen U-100 Insulin aspart) lisinopril 2.5 mg tablet 2.5 mg PO DAILY 06/24/18 09/11/23 atorvastatin 20 mg tablet 20 mg PO DAILY 01/03/19 09/11/23 bupropion HCl 150 mg 24 hr tablet, 150 mg PO QAM 03/22/19 09/11/23 extended release gabapentin 600 mg tablet 1,200 mg PO BEDTIME 12/13/20 09/11/23 ascorbic acid (vitamin C) 500 mg 500 mg PO DAILY 06/30/22 09/11/23 tablet (Vitamin C) cholecalciferol (vitamin D3) 25 25 mcg PO DAILY 06/30/22 09/11/23 mcg (1,000 unit) tablet (Vitamin D3) vitamin B complex 1 tab PO DAILY 06/30/22 09/11/23 Previous Rx's Medication Instructions Recorded levothyroxine 125 mcg capsule 125 mcg PO DAILY #30 caps 03/26/19 ondansetron 4 mg disintegrating 4 mg PO Q6H PRN nausea and 04/28/19 tablet vomiting #20 tabs cyclobenzaprine 10 mg tablet 10 mg PO BEDTIME #10 tabs 02/12/20 hydrocodone 5 mg-acetaminophen 325 1 tab PO TID PRN Moderate Pain 05/07/23 mg tablet (Scale Score 5-6) #7 tabs insulin glargine 100 unit/mL (3 15 unit (0.15 mL) SUBCUT BEDTIME 05/07/23 mL) subcutaneous pen (Lantus #15 mL Solostar U-100 Insulin) morphine 15 mg tablet,extended 15 mg PO BID #30 tabs 05/07/23 release (MS Contin) oxyquinoline 0.025 %-sodium lauryl 1 ea vaginal 2XW #113.4 grams 06/24/23 sulfate 0.01 % vaginal gel Allergies Allergy/AdvReac Type Severity Reaction Status Date / Time sulfamethoxazole Allergy Verified 09/11/23 15:08 [From Bactrim] trimethoprim [From Bactrim] Allergy Verified 09/11/23 15:08 venlafaxine [From Effexor] AdvReac Verified 09/11/23 15:08 Review of Systems Review of Systems Narrative: No other available information. Patient altered. Patient History Medical History Hyperlipidemia Hypothyroidism Venous stasis dermatitis of both lower extremities Restless leg syndrome Fibromyalgia Meningioma Spinal stenosis, lumbar Sleep apnea Sjogren's disease Depression GERD (gastroesophageal reflux disease) Diabetes Surgical History History of vein stripping History of cholecystectomy History of lymph node biopsy H/O total hysterectomy Family History Mother Bowel obstruction Father Psychiatric disorder Brother Hypertension Sister Cancer Social History household members: spouse and family Smoking Status: Former smoker alcohol intake: never substance use type: does not use Smoking Status: Former smoker tobacco type: cigarettes alcohol intake frequency: holidays/special occasions only Substance Use Type: does not use Exam Narrative Exam Narrative: Const: no acute distress, non toxic appearing; patient confused, arouses to verbal stimulation but then rapidly falls asleep again after answering questions; on 2 L nasal cannula satting low to mid 90s Eyes: PERRLA, EOMI ENT: mucous membranes moist Neck: supple, non-tender Resp: no respiratory distress, clear to auscultation bilaterally Card: regular rate and rhythm, no murmurs Abd: non tender diffusely, no rigidity or rebound or guarding Back: no T or L spine tenderness, no CVA tenderness bilaterally Extrem: no deformities, no swelling bilateral lower extremities Neuro: ANOx3/4, electrocardiogram technician 2-12 intact, intact sensation and strength all extremities, normal coordination, no clonus bilateral lower extremities Skin: no rash, warm and dry Initial Vital Signs Initial Vital Signs: Vital Signs Pulse Rate 90 10/17/23 16:28 Respiratory Rate 16 10/17/23 16:28 Pulse Oximetry 88 L 10/17/23 16:28 Oxygen Delivery Method Room Air 10/17/23 16:28 Course Course Course Narrative: This patient presents with altered mental status for which I have considered a broad differential including but not limited to hypoglycemia, narcotic overdose, hepatic encephalopathy, CO2 narcosis, electrolyte derangement, renal failure, azotemia, pneumonia, UTI, intoxication, medication side effect, stroke, ICH, among others. Last known normal is unclear but may be days. No clear focal neurologic deficit on exam. We are going to trial small dose of Narcan to see if she responds to this, while obtaining proper workup with EKG, labs, chest x-ray, urinalysis, head CT. I am also giving small fluid bolus and closely reassessing. Daughter will call us with additional information in the near future. Patient had clear response to narcan, though she does not fully return to baseline with it. She has received total of 0.08mg IN Narcan and 0.4mg IV Narcan. She is more alert though still seems confused. EKG NSR without acute ischemia or immediately concerning interval prolongation on my review. Labs: CBC with no leukocytosis or anemia or thrombocytopenia. Chemistry with hyperglycemia, creatinine similar to prior, AST and ALT elevation in a pattern that could suggest alcohol use, with no abdominal tenderness or pain here, no bilirubin or alk-phos elevation. Ammonia is reassuring; while patient can not fully cooperate with asterixis assessment on exam, this does reduce likelihood of hepatic encephalopathy. INR reassuring, producing likelihood of acute liver failure. Ethanol, Tylenol, salicylate levels negative. UDS with opiates. 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 Urine culture will be sent. VBG without respiratory acidosis. Bah was placed. CT: radiology read below FINDINGS: Image quality: Diagnostic. CSF spaces: Basal cisterns are patent. No extra-axial fluid collections. Ventricles are normal in size and shape. Brain: No midline shift. No intracranial masses or hemorrhage. Jensen-white matter interface is normal. Skull and face: Calvarium and visualized facial bones are intact, without suspicious lesions. Sinuses: Bilateral ethmoid complete opacification. Atelectatic left maxillary sinus with opacification as well. IMPRESSION: Unremarkable CT brain without intracranial hemorrhage or mass effect. Ethmoid and left maxillary mucosal sinus disease Approved by: Perico Longo M.D. on 10/17/2023 at 16:53 CXR: Awaiting formal read, however no clear acute opacities on my assessment. At this juncture, I suspect patient has metabolic encephalopathy from polypharmacy, with possible contribution of UTI. I spoke with Dr. Esqueda who accepted patient. Patient currently stable. Daughter en route. Patient is full code. Orders Ordered: ED Orders 10/17/23 16:33 EKG-12 Lead Routine 10/17/23 16:38 XR chest 1V Stat EKG-12 Lead Stat 10/17/23 16:46 CBC Auto Diff [Complete Blood Count AUTO DIFF] Stat CMP [Comprehensive Metabolic Panel] Stat 10/17/23 16:47 CT head/brain wo con Stat 10/17/23 16:51 Acetaminophen Stat Ammonia (NH3) Stat Ethanol (ETOH) Stat Prothrombin Time INR Stat Salicylate Stat 10/17/23 16:53 VBG [Venous Blood Gas] Stat 10/17/23 17:45 Ictotest Urine Stat Urinalysis and Microscopic Stat Urine Culture Stat Urine Drug Screen, Rapid Stat 10/17/23 18:07 Urine Culture Stat Sodium Chloride (Normal Saline 0.9%) 1,000 mls @ 1,000 mls/hr IV BOLUS PRN PRN Reason: Fluid replacement Last Infusion: 10/17/23 17:23 Dose: Infused Documented By: Admin: 10/17/23 16:30 Dose: 700 mls/hr Documented By: RB Discontinued Medications Naloxone HCl (Naloxone 1 Mg/Ml Syringe) 0.04 mg NASAL NOW ONE Stop: 10/17/23 16:38 Last Admin: 10/17/23 16:45 Dose: 0.04 mg Documented By: RB Naloxone HCl (Naloxone 1 Mg/Ml Syringe) 0.04 mg NASAL NOW ONE Stop: 10/17/23 16:39 Last Admin: 10/17/23 16:50 Dose: 0.04 mg Documented By: SIMI Naloxone HCl (Naloxone 1 Mg/Ml Syringe) 0.4 mg NASAL NOW ONE Stop: 10/17/23 17:19 Last Admin: 10/17/23 17:48 Dose: Not Given Documented By: RB Naloxone HCl (Naloxone 0.4 Mg/Ml Vial) 0.4 mg IV NOW ONE Stop: 10/17/23 17:26 Last Admin: 10/17/23 17:30 Dose: 0.4 mg Documented By: SIMI Vital Signs Vital signs: Vital Signs - 8 hr 10/17/23 16:28 10/17/23 16:30 10/17/23 16:30 Temperature Pulse Rate 90 87 Respiratory Rate 16 16 Blood Pressure 104/56 L Pulse Oximetry 88 L 95 Oxygen Delivery Method Room Air Nasal Cannula Oxygen Flow Rate 2 10/17/23 16:34 10/17/23 16:45 10/17/23 16:45 Temperature 99.5 F Pulse Rate 89 93 H Respiratory Rate 16 Blood Pressure 94/55 L 95/54 L Pulse Oximetry 87 L 91 Oxygen Delivery Method Room Air Room Air Oxygen Flow Rate 10/17/23 17:04 10/17/23 17:05 10/17/23 17:05 Temperature Pulse Rate 90 89 Respiratory Rate 21 Blood Pressure 95/55 L Pulse Oximetry 91 Oxygen Delivery Method Room Air Oxygen Flow Rate 10/17/23 17:15 10/17/23 17:15 10/17/23 17:30 Temperature Pulse Rate 88 Respiratory Rate 23 Blood Pressure 93/54 L 105/58 L Pulse Oximetry 91 Oxygen Delivery Method Room Air Oxygen Flow Rate 10/17/23 17:30 10/17/23 17:45 10/17/23 17:45 Temperature Pulse Rate 87 87 Respiratory Rate 15 23 Blood Pressure 138/69 Pulse Oximetry 91 93 Oxygen Delivery Method Room Air Room Air Oxygen Flow Rate Medical Decision Making Lab Data 10/17/23 16:46 10/17/23 16:46 Labs: Lab Results 10/17/23 10/17/23 10/17/23 Range/Units 16:46 16:51 17:45 WBC 9.1 (4.5-11.0) X10^3/uL RBC 4.77 (4.0-5.2) X10^6/uL Hgb 13.7 (12.0-16.0) g/dL Hct 40.8 (36-46) % MCV 85.6 (80-100) fL MCH 28.7 (26-34) PG MCHC 33.5 (30-36) % RDW 13.2 (11.6-14.8) % Plt Count 234 (150-400) X10^3/uL Neut % (Auto) 80.0 H (50-75) % Lymph % (Auto) 10.4 L (25-40) % [place] % (Auto) 8.5 (3-14) % Eos % (Auto) 0.8 L (2-4) % Baso % (Auto) 0.3 (0-2) % Neut # (Auto) 7300 H (1459-1359) /uL Lymph # (Auto) 900 L (0489-7861) /uL Catron # (Auto) 800 (0-900) /uL Eos # (Auto) 100 (0-450) /uL Baso # (Auto) 0 (0-100) /uL PT 12.9 H (9.4-12.5) SECONDS INR 1.1 (0.9-1.3) Sodium 137 (137-145) mmol/L Potassium 4.3 (3.4-5.1) mmol/L Chloride 102 (98-107) mmol/L Carbon Dioxide 32 (22-32) mmol/L BUN 22 H (7-17) mg/dL Creatinine 0.61 (0.52-1.04) mg/dL Estimated GFR > 60 (>60) mL/min BUN/Creatinine Ratio 36.1 H (6-22) Glucose 150 H (80-110) mg/dL Calcium 9.1 (8.4-10.2) mg/dL Total Bilirubin 0.7 (0.2-1.3) mg/dL AST 94 H (14-36) IU/L ALT 57 H (<35) IU/L Alkaline Phosphatase 74 (38-126) U/L Ammonia 12 (9-30) umol/L Total Protein 7.7 (6.3-8.2) g/dL Albumin 3.4 L (3.5-5.0) g/dL Globulin 4.3 H (1.7-4.1) g/dL Albumin/Globulin Ratio 0.8 L (1.0-2.8) Urine Color [place] Urine Appearance Clear Urine pH 5.0 (4.5-8.0) Ur Specific [place] 1.015 (1.000-1.035) Urine Protein Trace H (Negative) Urine Glucose (UA) Negative (Negative) g/dL Urine Ketones Trace H (NEGATIVE) Urine Occult Blood Negative (Negative) Urine Nitrate Positive H (Negative) Urine Bilirubin 1+ H (NEGATIVE) Ur Bilirubin Confirm TNP Urine Urobilinogen 1.0 (0.2) E.U./dL Ur Leukocyte Esterase Trace H (NEGATIVE) Urine RBC None seen (0-5/HPF) Urine WBC 5-10/hpf H (0-5/HPF) Ur Squamous Epith Cells None seen (0-5/HPF) Urine Bacteria Occasional (0-1) (None) Urine Yeast 10-30/hpf H (None) Ur Culture Indicated? Specimen cultured Vol Urine Centrifuged 10ml (spun) Salicylates < 1.0 (<20) mg/dL U Opiates 300ng/mL cut Positive H (Negative) Ur Oxycodone Screen Negative (Negative) Urine Methadone Screen Negative (Negative) Acetaminophen < 10 (10-30) ug/mL Ur Barbiturates Screen Negative (Negative) U Tricyclic Antidepress Negative (Negative) Ur Phencyclidine Scrn Negative (Negative) Ur Amphetamines Screen Negative (Negative) U Methamphetamines Scrn Negative (Negative) Ur MDMA Scrn (Ecstasy) Negative (Negative) U Benzodiazepines Scrn Negative (Negative) Urine Cocaine Screen Negative (Negative) U Marijuana (THC) Screen Negative (Negative) Urine Specific [place] (Normal) Ethyl Alcohol < 10 ( - 10) mg/dL Ur Creatinine (Normal) 10/17/23 Range/Units 17:45 WBC (4.5-11.0) X10^3/uL RBC (4.0-5.2) X10^6/uL Hgb (12.0-16.0) g/dL Hct (36-46) % MCV (80-100) fL MCH (26-34) PG MCHC (30-36) % RDW (11.6-14.8) % Plt Count (150-400) X10^3/uL Neut % (Auto) (50-75) % Lymph % (Auto) (25-40) % Catron % (Auto) (3-14) % Eos % (Auto) (2-4) % Baso % (Auto) (0-2) % Neut # (Auto) (6820-9304) /uL Lymph # (Auto) (2543-9731) /uL Catron # (Auto) (0-900) /uL Eos # (Auto) (0-450) /uL Baso # (Auto) (0-100) /uL PT (9.4-12.5) SECONDS INR (0.9-1.3) Sodium (137-145) mmol/L Potassium (3.4-5.1) mmol/L Chloride (98-107) mmol/L Carbon Dioxide (22-32) mmol/L BUN (7-17) mg/dL Creatinine (0.52-1.04) mg/dL Estimated GFR (>60) mL/min BUN/Creatinine Ratio (6-22) Glucose (80-110) mg/dL Calcium (8.4-10.2) mg/dL Total Bilirubin (0.2-1.3) mg/dL AST (14-36) IU/L ALT (<35) IU/L Alkaline Phosphatase (38-126) U/L Ammonia (9-30) umol/L Total Protein (6.3-8.2) g/dL Albumin (3.5-5.0) g/dL Globulin (1.7-4.1) g/dL Albumin/Globulin Ratio (1.0-2.8) Urine Color Urine Appearance Urine pH Normal (4.5-8.0) Ur Specific [place] (1.000-1.035) Urine Protein (Negative) Urine Glucose (UA) (Negative) g/dL Urine Ketones (NEGATIVE) Urine Occult Blood (Negative) Urine Nitrate (Negative) Urine Bilirubin (NEGATIVE) Ur Bilirubin Confirm Urine Urobilinogen (0.2) E.U./dL Ur Leukocyte Esterase (NEGATIVE) Urine RBC (0-5/HPF) Urine WBC (0-5/HPF) Ur Squamous Epith Cells (0-5/HPF) Urine Bacteria (None) Urine Yeast (None) Ur Culture Indicated? Vol Urine Centrifuged Salicylates (<20) mg/dL U Opiates 300ng/mL cut (Negative) Ur Oxycodone Screen (Negative) Urine Methadone Screen (Negative) Acetaminophen (10-30) ug/mL Ur Barbiturates Screen (Negative) U Tricyclic Antidepress (Negative) Ur Phencyclidine Scrn (Negative) Ur Amphetamines Screen (Negative) U Methamphetamines Scrn (Negative) Ur MDMA Scrn (Ecstasy) (Negative) U Benzodiazepines Scrn (Negative) Urine Cocaine Screen (Negative) U Marijuana (THC) Screen (Negative) Urine Specific [place] Normal (Normal) Ethyl Alcohol ( - 10) mg/dL Ur Creatinine Normal (Normal) Point of Care Testing Glucose POC 146 Point of care testing: Point of Care Testing Glucose POC 146 Discharge Plan Departure Patient Disposition: Admitted as Observation Clinical Impression: Encephalopathy, Acute UTI, History of narcotic use Prescriptions: No Action omeprazole 20 mg Capsule,Delayed Release(Dr/Ec) 20 mg PO DAILY Qty: 0 escitalopram oxalate [Lexapro] 20 mg Tablet 40 mg PO DAILY Qty: 0 Rx Instructions: Take 2 tablets by mouth once daily at 3PM oxyquinoline-sod.lauryl sulfat 0.025-0.01 % gel 1 ea vaginal 2XW Qty: 113.4 3RF Rx Instructions: Use one applicator full 1-2 times weekly cevimeline 30 mg Capsule 10 mg PO TID lisinopril 2.5 mg Tablet 2.5 mg PO DAILY insulin aspart U-100 [Novolog FlexPen U-100 Insulin] 100 unit/mL Insulin Pen 4 - 6 unit SUBCUT AC Patient Comments: takes it with meals. atorvastatin 20 mg Tablet 20 mg PO DAILY ondansetron 4 mg tablet,disintegrating 4 mg PO Q6H PRN (Reason: nausea and vomiting) Qty: 20 0RF ascorbic acid (vitamin C) [Vitamin C] 500 mg Tablet 500 mg PO DAILY Patient Comments: PT TO VERIFY DOSE vitamin B complex Tablet 1 tab PO DAILY cholecalciferol (vitamin D3) [Vitamin D3] 25 mcg (1,000 unit) Tablet 25 mcg PO DAILY bupropion HCl 150 mg Tablet Extended Release 24 Hr 150 mg PO QAM levothyroxine 125 mcg capsule 125 mcg PO DAILY Qty: 30 0RF cyclobenzaprine 10 mg tablet 10 mg PO BEDTIME Qty: 10 0RF gabapentin 600 mg tablet 1,200 mg PO BEDTIME hydrocodone-acetaminophen 5-325 mg Tablet 1 tab PO TID PRN (Reason: Moderate Pain (Scale Score 5-6)) Qty: 7 0RF Patient Comments: Pt states she takes 1 hydrocodone/acetaminophen 5/500 mg tab PO TID morphine [MS Contin] 15 mg tablet extended release 15 mg PO BID Qty: 30 0RF Rx Instructions: 0400, 1200, 2000 insulin glargine [Lantus Solostar U-100 Insulin] 100 unit/mL (3 mL) insulin pen 15 unit SUBCUT BEDTIME Qty: 15 0RF Referrals: Saundra Cortez PA-C [Primary Care Provider] -
--- NOTE | 2023-10-17 16:38 | DI.RAD.S_ITS ---
PROCEDURE: XR CHEST 1V INDICATIONS: AMS TECHNIQUE: One view of the chest was acquired. COMPARISON: [facility], CR, XR CHEST 1V, 05/06/2023, 16:15. FINDINGS: Patient's mandible obscures the left lung apex Lungs and pleura: Lungs are clear. No pleural effusions or pneumothorax. Underlying chronic interstitial changes Mediastinum: Mediastinal contours appear normal. Heart size is normal. Bones and chest wall: No suspicious bony lesions. Overlying soft tissues appear unremarkable. Generalized decreased osseous mineralization noted. IMPRESSION: No acute cardiopulmonary abnormality is seen. Approved by: Perico Longo M.D. on 10/17/2023 at 17:28
[2023-10-17] MEDS: NALOXONE 1 MG/ML SYRINGE NASAL ×2 (16:45→16:50)
--- NOTE | 2023-10-17 16:47 | DI.CT.S_ITS ---
PROCEDURE: CT HEAD/BRAIN WO CON INDICATIONS: AMS TECHNIQUE: Noncontrast 4.5 mm thick angled axial sections acquired from the foramen magnum to the vertex, with coronal and sagittal reformats. For radiation dose reduction, the following was used: automated exposure control, adjustment of mA and/or kV according to patient size. COMPARISON: [facility], CT, CT HEAD/BRAIN WO CON, 12/14/2020, 13:19. FINDINGS: Image quality: Diagnostic. CSF spaces: Basal cisterns are patent. No extra-axial fluid collections. Ventricles are normal in size and shape. Brain: No midline shift. No intracranial masses or hemorrhage. Jensen-white matter interface is normal. Skull and face: Calvarium and visualized facial bones are intact, without suspicious lesions. Sinuses: Bilateral ethmoid complete opacification. Atelectatic left maxillary sinus with opacification as well. IMPRESSION: Unremarkable CT brain without intracranial hemorrhage or mass effect. Ethmoid and left maxillary mucosal sinus disease Approved by: Perico Longo M.D. on 10/17/2023 at 16:53
[2023-10-17 16:49] LABS: Add Manual Diff / Slide Review NO; Basophils Absolute Auto 0 /uL (0-100); Basophils Percent Auto 0.3 % (0-2); Eosinophils Absolute Auto 100 /uL (0-450); Eosinophils Percent Auto 0.8 % (2-4); Hematocrit 40.8 % (36-46); Hemoglobin 13.7 g/dL (12.0-16.0); Lymphocytes Absolute Auto 900 /uL (1100-4500); Lymphocytes Percent Auto 10.4 % (25-40); Mean Corpuscular HGB Conc 33.5 % (30-36); Mean Corpuscular Hemoglobin 28.7 PG (26-34); Mean Corpuscular Volume 85.6 fL (80-100); Monocytes Absolute Auto 800 /uL (0-900); Monocytes Percent Auto 8.5 % (3-14); Neutrophils Absolute Auto 7300 /uL (1500-7000); Platelet Count 234 X10^3/uL (150-400); Red Blood Cell Count 4.77 X10^6/uL (4.0-5.2); Red Cell Distribution Width 13.2 % (11.6-14.8); White Blood Cell Count 9.1 X10^3/uL (4.5-11.0)
--- NOTE | 2023-10-17 16:49 | PC.NURSE ---
Provider gave verbal order to give additional 0.04 nalaxone to patient.
[2023-10-17 16:55] LABS: INR 1.1 (0.9-1.3); Prothrombin Time 12.9 SECONDS (9.4-12.5)
[2023-10-17 17:01] LABS: Alanine Aminotransferase 57 IU/L (<35); Albumin 3.4 g/dL (3.5-5.0); Albumin Globulin Ratio 0.8 (1.0-2.8); Alkaline Phosphatase 74 U/L (38-126); Aspartate Aminotransferase 94 IU/L (14-36); BUN Creatinine Ratio 36.1 (6-22); Bilirubin Total 0.7 mg/dL (0.2-1.3); Blood Urea Nitrogen 22 mg/dL (7-17); Calcium 9.1 mg/dL (8.4-10.2); Carbon Dioxide 32 mmol/L (22-32); Chloride 102 mmol/L (98-107); Estimated Glomerular Filt Rate > 60 mL/min (>60); Globulin 4.3 g/dL (1.7-4.1); Glucose 150 mg/dL (80-110); HEMOLYSIS < 15 (0-50); Potassium 4.3 mmol/L (3.4-5.1); Sodium 137 mmol/L (137-145); Total Protein 7.7 g/dL (6.3-8.2)
[2023-10-17 17:02] LABS: Acetaminophen < 10 ug/mL (10-30); Ethanol (ETOH) < 10 mg/dL; Salicylate < 1.0 mg/dL (<20)
[2023-10-17 17:03] LABS: Ammonia (NH3) 12 umol/L (9-30)
--- NOTE | 2023-10-17 17:18 | PC.NURSE ---
Addendum entered by Jonathon Busby R.N. 10/17/23 17:24: Provider updated order to by given by IV same dosage. This RN placed verbal order to cancel this order and reordered same dose via IV. Original Note: Patient has increased responsiveness for 5-10 post narcan before returning back to previous setting. Provider ordered increased dose of 0.40 narcan nasally to be given.
[2023-10-17] MEDS: NALOXONE 0.4 MG/ML VIAL IV (17:30)
[2023-10-17 17:58] LABS: Appearance Urine UA CLEAR; Bilirubin Urine UA 1+ (NEGATIVE); Glucose Urine UA NEGATIVE (Negative); Ketones Urine UA TRACE (NEGATIVE); Leukocyte Esterase Urine UA TRACE (NEGATIVE); Nitrite Urine UA POSITIVE (Negative); Occult Blood Urine UA NEGATIVE (Negative); Protein Urine UA TRACE (Negative); Specific Gravity Urine UA 1.015 (1.000-1.035)
[2023-10-17 17:59] LABS: Color Urine UA ORANGE
[2023-10-17 18:01] LABS: Ur Creatinine Normal (Normal); Ur Specific Gravity Normal (Normal); Urine pH Normal (Normal)
[2023-10-17 18:02] LABS: UR Morphine/Opiate cutoff 300 Positive (Negative); Urine Amphetamines Negative (Negative); Urine Barbiturates Negative (Negative); Urine Benzodiazepines Negative (Negative); Urine Cocaine Negative (Negative); Urine MDMA Negative (Negative); Urine Methadone Negative (Negative); Urine Methamphetamines Negative (Negative); Urine Oxycodone Negative (Negative); Urine Phencyclidine Negative (Negative); Urine Tetrahydrocannabinol Negative (Negative); Urine Tricyclic Antidepressant Negative (Negative)
[2023-10-17 18:03] LABS: Urine Volume 10mL (spun)
[2023-10-17 18:06] LABS: Bacteria Urine Occasional (0-1); Culture Indicated Urine Specimen Cultured; RBC Urine None Seen (0-5/HPF); Squamous Epithelial Cell Urine None Seen (0-5/HPF); WBC Urine 5-10/HPF (0-5/HPF)
[2023-10-17] MEDS: cefTRIAXone 1,000 MG in SODIUM CHLORIDE 0.9% 100 ML 200 MG IV (18:25)
[2023-10-17 19:41] LABS: pH VBG 7.42 (7.33-7.43)
[2023-10-17 19:42] LABS: Fractionated Inspired Oxygen 21; HCO3 VBG 24 mmol/L (24-28); Oxygen Saturation VBG 92 % (70-75); PCO2 VBG 36.5 mmHg (45-50); PO2 VBG 63 mmHg (35-45); Total CO2 VBG 25 mmol/L (24-29)
[2023-10-17 21:38] LABS: MRSA (Nasal) PCR Not Detected (Not Detect)
[2023-10-18] VITALS: BP 126/61; PULSE 93; RESP 22; TEMP 37.3; O2SAT 95
[2023-10-18 00:08] VITALS: O2SAT 95
[2023-10-18 04:00] VITALS: BP 129/66; PULSE 89; RESP 17; TEMP 37.3; O2SAT 95
--- NOTE | 2023-10-18 04:31 | PM.HP.1 ---
History of Present Illness History of Present Illness Date Patient Seen: 10/17/23 Time Patient Seen: 22:30 Chief complaint: T101.2 UTI/tired Narrative: 74 years old female with a past medical history of diabetes, COPD, obstructive sleep apnea, hypothyroidism, chronic pain on multiple medications and other medical issues was brought to the emergency room for progressive lethargy with generalized fatigue. Apparently patient was repeatedly falling asleep. Patient is not a good historian and most of the history has been obtained from the chart and from the spouse at the bedside. She opens her eyes but drifts back to sleep. Per caregivers, no recent history of cough fever. Denies any chest pain. This complain of generalized fatigue and has been trying to detox with noticeable supplement. Blood sugars have been in the 100s per EMS. Home meds include gabapentin, bupropion, Flexeril, [place], and oral morphine. CT scan of the brain in the ED shows no acute process. Systolic blood pressure was 90s. Labs showed a WBC count of 9.1 with a hemoglobin of 13.7, BUN of 22 and a creatinine of 0.61. Ammonia is 12. Urine analysis is positive for WBCs and leukocyte esterase. Patient was initiated on IV Rocephin and admitted for further evaluation [facility] Medical History Hyperlipidemia Hypothyroidism Venous stasis dermatitis of both lower extremities Restless leg syndrome Fibromyalgia Meningioma Spinal stenosis, lumbar Sleep apnea Sjogren's disease Depression GERD (gastroesophageal reflux disease) Diabetes Surgical History History of vein stripping History of cholecystectomy History of lymph node biopsy H/O total hysterectomy Family History Mother Bowel obstruction Father Psychiatric disorder Brother Hypertension Sister Cancer Social History household members: spouse and family Smoking Status: Former smoker alcohol intake: never substance use type: does not use Meds Home Medications and Allergies Home Medications Medication Instructions Recorded Confirmed Type escitalopram oxalate 20 mg tablet 40 mg PO DAILY ##0 03/16/10 09/11/23 History (Lexapro) omeprazole 20 mg capsule,delayed 20 mg PO DAILY ##0 03/16/10 09/11/23 History release cevimeline 30 mg capsule 10 mg PO TID 06/24/18 09/11/23 History insulin aspart U-100 100 unit/mL 4 - 6 unit SUBCUT AC 06/24/18 09/11/23 History (3 mL) subcutaneous pen (Novolog FlexPen U-100 Insulin aspart) lisinopril 2.5 mg tablet 2.5 mg PO DAILY 06/24/18 09/11/23 History atorvastatin 20 mg tablet 20 mg PO DAILY 01/03/19 09/11/23 History bupropion HCl 150 mg 24 hr tablet, 150 mg PO QAM 03/22/19 09/11/23 History extended release levothyroxine 125 mcg capsule 125 mcg PO DAILY #30 caps 03/26/19 09/11/23 Rx ondansetron 4 mg disintegrating 4 mg PO Q6H PRN nausea and 04/28/19 09/11/23 Rx tablet vomiting #20 tabs cyclobenzaprine 10 mg tablet 10 mg PO BEDTIME #10 tabs 02/12/20 09/11/23 Rx gabapentin 600 mg tablet 1,200 mg PO BEDTIME 12/13/20 09/11/23 History ascorbic acid (vitamin C) 500 mg 500 mg PO DAILY 06/30/22 09/11/23 History tablet (Vitamin C) cholecalciferol (vitamin D3) 25 25 mcg PO DAILY 06/30/22 09/11/23 History mcg (1,000 unit) tablet (Vitamin D3) vitamin B complex 1 tab PO DAILY 06/30/22 09/11/23 History hydrocodone 5 mg-acetaminophen 325 1 tab PO TID PRN Moderate Pain 05/07/23 09/11/23 Rx mg tablet (Scale Score 5-6) #7 tabs insulin glargine 100 unit/mL (3 15 unit (0.15 mL) SUBCUT BEDTIME 05/07/23 09/11/23 Rx mL) subcutaneous pen (Lantus #15 mL Solostar U-100 Insulin) morphine 15 mg tablet,extended 15 mg PO BID #30 tabs 05/07/23 09/11/23 Rx release (MS Contin) oxyquinoline 0.025 %-sodium lauryl 1 ea vaginal 2XW #113.4 grams 06/24/23 09/11/23 Rx sulfate 0.01 % vaginal gel Allergies Allergy/AdvReac Type Severity Reaction Status Date / Time sulfamethoxazole Allergy Verified 09/11/23 15:08 [From Bactrim] trimethoprim [From Bactrim] Allergy Verified 09/11/23 15:08 venlafaxine [From Effexor] AdvReac Verified 09/11/23 15:08 Review of Systems Review of Systems Narrative: Review of systems limited given the patient's cognition change Exam Vital Signs (past 8 hours): - 10/17/23 20:32 10/17/23 21:25 10/18/23 00:00 Temperature 99.2 F Pulse Rate 93 H Respiratory Rate 22 Blood Pressure 126/61 Pulse Oximetry 90 L 95 Oxygen Delivery Method Room Air Room Air Oxygen Flow Rate 0 10/18/23 00:08 10/18/23 04:00 Temperature Pulse Rate Respiratory Rate Blood Pressure Pulse Oximetry 95 95 Oxygen Delivery Method Nasal Cannula Nasal Cannula Oxygen Flow Rate Oxygen Delivery Method Nasal Cannula Oxygen Flow Rate 0 Narrative Exam Narrative: Patient is drowsy but arousable Air entry equal bilaterally no wheezes no crackles Abdomen soft is nontender Objective Labs 10/17/23 16:46 10/17/23 16:46 Labs: Laboratory Results - last 24 hr 10/17/23 10/17/23 10/17/23 16:46 16:51 17:45 WBC 9.1 RBC 4.77 Hgb 13.7 Hct 40.8 MCV 85.6 MCH 28.7 MCHC 33.5 RDW 13.2 Plt Count 234 Neut % (Auto) 80.0 H Lymph % (Auto) 10.4 L [place] % (Auto) 8.5 Eos % (Auto) 0.8 L Baso % (Auto) 0.3 Neut # (Auto) 7300 H Lymph # (Auto) 900 L [place] # (Auto) 800 Eos # (Auto) 100 Baso # (Auto) 0 PT 12.9 H INR 1.1 VBG pH VBG pCO2 VBG pO2 VBG HCO3 VBG Total CO2 VBG O2 Saturation VBG Base Excess FiO2 Sodium 137 Potassium 4.3 Chloride 102 Carbon Dioxide 32 BUN 22 H Creatinine 0.61 Estimated GFR > 60 BUN/Creatinine Ratio 36.1 H Glucose 150 H Calcium 9.1 Total Bilirubin 0.7 AST 94 H ALT 57 H Alkaline Phosphatase 74 Ammonia 12 Total Protein 7.7 Albumin 3.4 L Globulin 4.3 H Albumin/Globulin Ratio 0.8 L Urine Color [place] Urine Appearance Clear Urine pH 5.0 Ur Specific [place] 1.015 Urine Protein Trace H Urine Glucose (UA) Negative Urine Ketones Trace H Urine Occult Blood Negative Urine Nitrate Positive H Urine Bilirubin 1+ H Ur Bilirubin Confirm TNP Urine Urobilinogen 1.0 Ur Leukocyte Esterase Trace H Urine RBC None seen Urine WBC 5-10/hpf H Ur Squamous Epith Cells None seen Urine Bacteria Occasional (0-1) Urine Yeast 10-30/hpf H Ur Culture Indicated? Specimen cultured Vol Urine Centrifuged 10ml (spun) Nasal Screen MRSA (PCR) Salicylates < 1.0 U Opiates 300ng/mL cut Positive H Ur Oxycodone Screen Negative Urine Methadone Screen Negative Acetaminophen < 10 Ur Barbiturates Screen Negative U Tricyclic Antidepress Negative Ur Phencyclidine Scrn Negative Ur Amphetamines Screen Negative U Methamphetamines Scrn Negative Ur MDMA Scrn (Ecstasy) Negative U Benzodiazepines Scrn Negative Urine Cocaine Screen Negative U Marijuana (THC) Screen Negative Urine Specific [place] Ethyl Alcohol < 10 Ur Creatinine 10/17/23 10/17/23 10/17/23 17:45 18:26 20:05 WBC RBC Hgb Hct MCV MCH MCHC RDW Plt Count Neut % (Auto) Lymph % (Auto) [place] % (Auto) Eos % (Auto) Baso % (Auto) Neut # (Auto) Lymph # (Auto) [place] # (Auto) Eos # (Auto) Baso # (Auto) PT INR VBG pH 7.42 VBG pCO2 36.5 L VBG pO2 63 H VBG HCO3 24 VBG Total CO2 25 VBG O2 Saturation 92 H VBG Base Excess -1.0 L FiO2 21 Sodium Potassium Chloride Carbon Dioxide BUN Creatinine Estimated GFR BUN/Creatinine Ratio Glucose Calcium Total Bilirubin AST ALT Alkaline Phosphatase Ammonia Total Protein Albumin Globulin Albumin/Globulin Ratio Urine Color Urine Appearance Urine pH Normal Ur Specific [place] Urine Protein Urine Glucose (UA) Urine Ketones Urine Occult Blood Urine Nitrate Urine Bilirubin Ur Bilirubin Confirm Urine Urobilinogen Ur Leukocyte Esterase Urine RBC Urine WBC Ur Squamous Epith Cells Urine Bacteria Urine Yeast Ur Culture Indicated? Vol Urine Centrifuged Nasal Screen MRSA (PCR) Not detected Salicylates U Opiates 300ng/mL cut Ur Oxycodone Screen Urine Methadone Screen Acetaminophen Ur Barbiturates Screen U Tricyclic Antidepress Ur Phencyclidine Scrn Ur Amphetamines Screen U Methamphetamines Scrn Ur MDMA Scrn (Ecstasy) U Benzodiazepines Scrn Urine Cocaine Screen U Marijuana (THC) Screen Urine Specific [place] Normal Ethyl Alcohol Ur Creatinine Normal Assessment & Plan Assessment & Plan narrative: 74 years old female with a past medical history of diabetes, COPD, obstructive sleep apnea, hypothyroidism, chronic pain on multiple medications and other medical issues was brought to the emergency room for progressive lethargy with generalized fatigue. Apparently patient was repeatedly falling asleep. Patient is not a good historian and most of the history has been obtained from the chart and from the spouse at the bedside. She opens her eyes but drifts back to sleep. Per caregivers, no recent history of cough fever. Denies any chest pain. This complain of generalized fatigue and has been trying to detox with noticeable supplement. Blood sugars have been in the 100s per EMS. Home meds include gabapentin, bupropion, Flexeril, [place], and oral morphine. CT scan of the brain in the ED shows no acute process. Systolic blood pressure was 90s. Labs showed a WBC count of 9.1 with a hemoglobin of 13.7, BUN of 22 and a creatinine of 0.61. Ammonia is 12. Urine analysis is positive for WBCs and leukocyte esterase. Patient was initiated on IV Rocephin and admitted for further evaluation 1 Altered mental status/lethargy appears multifactorial due to formation of underlying urinary tract infection/polypharmacy with superimposed metabolic encephalopathy. Treat the reversible factors including infection and hold the psychotropic medications and monitor for now. Avoid narcotics 2 urinary tract infection. Pending cultures, continue IV Rocephin initiated in emergency room 3 depression/anxiety. For now given the patient is lethargic, hold home medications 4 diabetes mellitus type 2. For now hold the home medications given the cognition change and watch the blood sugar ACHS with sliding scale 5 hypothyroidism. Confirm the levothyroxine dose and resume. Check a TSH level 6 GERD. Resume the home PPI 7 DVT prophylaxis will be with Lovenox Plan of care discussed with the spouse at the bedside. For now patient is full code Patient will be admitted under observation status
[2023-10-18 05:49] LABS: Add Manual Diff / Slide Review NO; Basophils Absolute Auto 0 /uL (0-100); Basophils Percent Auto 0.3 % (0-2); Eosinophils Absolute Auto 0 /uL (0-450); Eosinophils Percent Auto 0.1 % (2-4); Hematocrit 39.9 % (36-46); Hemoglobin 13.3 g/dL (12.0-16.0); Lymphocytes Absolute Auto 1900 /uL (1100-4500); Lymphocytes Percent Auto 17.3 % (25-40); Mean Corpuscular HGB Conc 33.3 % (30-36); Mean Corpuscular Hemoglobin 28.6 PG (26-34); Mean Corpuscular Volume 85.9 fL (80-100); Monocytes Absolute Auto 1000 /uL (0-900); Monocytes Percent Auto 9.4 % (3-14); Neutrophils Absolute Auto 7900 /uL (1500-7000); Neutrophils Percent Auto 72.9 % (50-75); Platelet Count 87 X10^3/uL (150-400); Red Blood Cell Count 4.65 X10^6/uL (4.0-5.2); Red Cell Distribution Width 13.2 % (11.6-14.8); White Blood Cell Count 10.9 X10^3/uL (4.5-11.0)
[2023-10-18 06:10] LABS: Alanine Aminotransferase 49 IU/L (<35); Albumin 3.2 g/dL (3.5-5.0); Albumin Globulin Ratio 0.8 (1.0-2.8); Alkaline Phosphatase 77 U/L (38-126); Aspartate Aminotransferase 57 IU/L (14-36); BUN Creatinine Ratio 47.8 (6-22); Bilirubin Total 0.6 mg/dL (0.2-1.3); Blood Urea Nitrogen 22 mg/dL (7-17); Calcium 8.5 mg/dL (8.4-10.2); Carbon Dioxide 29 mmol/L (22-32); Chloride 104 mmol/L (98-107); Estimated Glomerular Filt Rate > 60 mL/min (>60); Glucose 179 mg/dL (80-110); HEMOLYSIS < 15 (0-50); Magnesium 1.8 mg/dL (1.6-2.3); Potassium 3.7 mmol/L (3.4-5.1); Sodium 137 mmol/L (137-145); Total Protein 7.2 g/dL (6.3-8.2)
[2023-10-18 08:00] VITALS: BP 133/66; PULSE 91; RESP 18; TEMP 37; O2SAT 92; O2SAT 93
--- NOTE | 2023-10-18 09:14 | PM.DS.1 ---
History of Present Illness History of Present Illness Date Patient Seen: 10/18/23 Time Patient Seen: 09:14 Chief complaint: T101.2 UTI/tired Narrative: Per admitting provider, 74 years old female with a past medical history of diabetes, COPD, obstructive sleep apnea, hypothyroidism, chronic pain on multiple medications and other medical issues was brought to the emergency room for progressive lethargy with generalized fatigue. Apparently patient was repeatedly falling asleep. Patient is not a good historian and most of the history has been obtained from the chart and from the spouse at the bedside. She opens her eyes but drifts back to sleep. Per caregivers, no recent history of cough fever. Denies any chest pain. This complain of generalized fatigue and has been trying to detox with noticeable supplement. Blood sugars have been in the 100s per EMS. Home meds include gabapentin, bupropion, Flexeril, [place], and oral morphine. CT scan of the brain in the ED shows no acute process. Systolic blood pressure was 90s. Labs showed a WBC count of 9.1 with a hemoglobin of 13.7, BUN of 22 and a creatinine of 0.61. Ammonia is 12. Urine analysis is positive for WBCs and leukocyte esterase. Patient was initiated on IV Rocephin and admitted for further evaluation Discharge Providers Provider Date of admission: 10/17/23 18:19 Discharge Date: 10/18/23 Primary care physician: Saundra Cortez PA-C Consults: 10/18/23 04:30 Consult to Physical Therapy Evaluate & Treat Comment: Physician Instructions: Evaluate and Treat Discharge provider: Andrea Esqueda DO Summary Hospital Course Discharge Diagnosis: 1 Acute metabolic encephalopathy due to opiate administration 2 Asymptomatic bacteruria. 3 depression/anxiety. 4 diabetes mellitus type 2. 5 hypothyroidism 6 GERD. Hospital Course: 74 years old female with a past medical history of diabetes, COPD, obstructive sleep apnea, hypothyroidism, chronic pain on multiple medications and other medical issues was brought to the emergency room for progressive lethargy with generalized fatigue. Apparently patient was repeatedly falling asleep. She has a history of opiate overuse. The following morning she was back to baseline after holding her home opiates. She denied dysuria or urinary frequency, and urine was possibly consistent with infection but this is felt to be more due to asymptomatic bacteruria given her rapid improvement. She was advised as during previous admissions to reduce her home opiate use. Please see nursing note from the day of discharge regarding significant issues with family dynamics and concern for medication administration at home. Time Spent with Patient Time spent: Greater than 30 minutes Exam Vital Signs (past 8 hours): - 10/18/23 04:00 10/18/23 04:00 10/18/23 07:00 Temperature 99.1 F Pulse Rate 89 Respiratory Rate 17 Blood Pressure 129/66 Pulse Oximetry 95 95 Oxygen Delivery Method Nasal Cannula Room Air Oxygen Flow Rate 2 10/18/23 08:00 10/18/23 08:00 Temperature 98.6 F Pulse Rate 91 H Respiratory Rate 18 Blood Pressure 133/66 Pulse Oximetry 92 93 Oxygen Delivery Method Room Air Oxygen Flow Rate 2 Oxygen Delivery Method Room Air Oxygen Flow Rate 2 Narrative Exam Narrative: Gen: Alert but mildly ill-appearing 72 y.o. female, no acute distress HEENT: normocephalic, atraumatic, conjunctiva clear, sclera non-icteric, oral mucosa pink and moist Neck: supple, full ROM, no JVD, trachea is midline Resp: Lungs CTA, non-labored breathing CV: RRR, no murmur or rubs Abd: soft, non-tender, non-distended Skin: no lesions or rashes, dry and intact Neuro: Alert and oriented w/no focal deficits. Speech soft but intellegible. Moves all extremities equally with sensation intact to light touch. No deficits to cranial nerves. Extremities: no edema or joint effusions Objective Labs 10/18/23 04:40 10/18/23 04:40 Labs: Laboratory Results - last 24 hr 10/17/23 10/17/23 10/17/23 16:46 16:51 17:45 WBC 9.1 RBC 4.77 Hgb 13.7 Hct 40.8 MCV 85.6 MCH 28.7 MCHC 33.5 RDW 13.2 Plt Count 234 Neut % (Auto) 80.0 H Lymph % (Auto) 10.4 L [place] % (Auto) 8.5 Eos % (Auto) 0.8 L Baso % (Auto) 0.3 Neut # (Auto) 7300 H Lymph # (Auto) 900 L [place] # (Auto) 800 Eos # (Auto) 100 Baso # (Auto) 0 PT 12.9 H INR 1.1 VBG pH VBG pCO2 VBG pO2 VBG HCO3 VBG Total CO2 VBG O2 Saturation VBG Base Excess FiO2 Sodium 137 Potassium 4.3 Chloride 102 Carbon Dioxide 32 BUN 22 H Creatinine 0.61 Estimated GFR > 60 BUN/Creatinine Ratio 36.1 H Glucose 150 H Calcium 9.1 Magnesium Total Bilirubin 0.7 AST 94 H ALT 57 H Alkaline Phosphatase 74 Ammonia 12 Total Protein 7.7 Albumin 3.4 L Globulin 4.3 H Albumin/Globulin Ratio 0.8 L Urine Color [place] Urine Appearance Clear Urine pH 5.0 Ur Specific [place] 1.015 Urine Protein Trace H Urine Glucose (UA) Negative Urine Ketones Trace H Urine Occult Blood Negative Urine Nitrate Positive H Urine Bilirubin 1+ H Ur Bilirubin Confirm TNP Urine Urobilinogen 1.0 Ur Leukocyte Esterase Trace H Urine RBC None seen Urine WBC 5-10/hpf H Ur Squamous Epith Cells None seen Urine Bacteria Occasional (0-1) Urine Yeast 10-30/hpf H Ur Culture Indicated? Specimen cultured Vol Urine Centrifuged 10ml (spun) Nasal Screen MRSA (PCR) Salicylates < 1.0 U Opiates 300ng/mL cut Positive H Ur Oxycodone Screen Negative Urine Methadone Screen Negative Acetaminophen < 10 Ur Barbiturates Screen Negative U Tricyclic Antidepress Negative Ur Phencyclidine Scrn Negative Ur Amphetamines Screen Negative U Methamphetamines Scrn Negative Ur MDMA Scrn (Ecstasy) Negative U Benzodiazepines Scrn Negative Urine Cocaine Screen Negative U Marijuana (THC) Screen Negative Urine Specific [place] Ethyl Alcohol < 10 Ur Creatinine 10/17/23 10/17/23 10/17/23 17:45 18:26 20:05 WBC RBC Hgb Hct MCV MCH MCHC RDW Plt Count Neut % (Auto) Lymph % (Auto) [place] % (Auto) Eos % (Auto) Baso % (Auto) Neut # (Auto) Lymph # (Auto) [place] # (Auto) Eos # (Auto) Baso # (Auto) PT INR VBG pH 7.42 VBG pCO2 36.5 L VBG pO2 63 H VBG HCO3 24 VBG Total CO2 25 VBG O2 Saturation 92 H VBG Base Excess -1.0 L FiO2 21 Sodium Potassium Chloride Carbon Dioxide BUN Creatinine Estimated GFR BUN/Creatinine Ratio Glucose Calcium Magnesium Total Bilirubin AST ALT Alkaline Phosphatase Ammonia Total Protein Albumin Globulin Albumin/Globulin Ratio Urine Color Urine Appearance Urine pH Normal Ur Specific [place] Urine Protein Urine Glucose (UA) Urine Ketones Urine Occult Blood Urine Nitrate Urine Bilirubin Ur Bilirubin Confirm Urine Urobilinogen Ur Leukocyte Esterase Urine RBC Urine WBC Ur Squamous Epith Cells Urine Bacteria Urine Yeast Ur Culture Indicated? Vol Urine Centrifuged Nasal Screen MRSA (PCR) Not detected Salicylates U Opiates 300ng/mL cut Ur Oxycodone Screen Urine Methadone Screen Acetaminophen Ur Barbiturates Screen U Tricyclic Antidepress Ur Phencyclidine Scrn Ur Amphetamines Screen U Methamphetamines Scrn Ur MDMA Scrn (Ecstasy) U Benzodiazepines Scrn Urine Cocaine Screen U Marijuana (THC) Screen Urine Specific [place] Normal Ethyl Alcohol Ur Creatinine Normal 10/18/23 04:40 WBC 10.9 RBC 4.65 Hgb 13.3 Hct 39.9 MCV 85.9 MCH 28.6 MCHC 33.3 RDW 13.2 Plt Count 87 L Neut % (Auto) 72.9 Lymph % (Auto) 17.3 L [place] % (Auto) 9.4 Eos % (Auto) 0.1 L Baso % (Auto) 0.3 Neut # (Auto) 7900 H Lymph # (Auto) 1900 [place] # (Auto) 1000 H Eos # (Auto) 0 Baso # (Auto) 0 PT INR VBG pH VBG pCO2 VBG pO2 VBG HCO3 VBG Total CO2 VBG O2 Saturation VBG Base Excess FiO2 Sodium 137 Potassium 3.7 Chloride 104 Carbon Dioxide 29 BUN 22 H Creatinine 0.46 L Estimated GFR > 60 BUN/Creatinine Ratio 47.8 H Glucose 179 H Calcium 8.5 Magnesium 1.8 Total Bilirubin 0.6 AST 57 H ALT 49 H Alkaline Phosphatase 77 Ammonia Total Protein 7.2 Albumin 3.2 L Globulin 4.0 Albumin/Globulin Ratio 0.8 L Urine Color Urine Appearance Urine pH Ur Specific [place] Urine Protein Urine Glucose (UA) Urine Ketones Urine Occult Blood Urine Nitrate Urine Bilirubin Ur Bilirubin Confirm Urine Urobilinogen Ur Leukocyte Esterase Urine RBC Urine WBC Ur Squamous Epith Cells Urine Bacteria Urine Yeast Ur Culture Indicated? Vol Urine Centrifuged Nasal Screen MRSA (PCR) Salicylates U Opiates 300ng/mL cut Ur Oxycodone Screen Urine Methadone Screen Acetaminophen Ur Barbiturates Screen U Tricyclic Antidepress Ur Phencyclidine Scrn Ur Amphetamines Screen U Methamphetamines Scrn Ur MDMA Scrn (Ecstasy) U Benzodiazepines Scrn Urine Cocaine Screen U Marijuana (THC) Screen Urine Specific [place] Ethyl Alcohol Ur Creatinine PFSH Medical History Hyperlipidemia Hypothyroidism Venous stasis dermatitis of both lower extremities Restless leg syndrome Fibromyalgia Meningioma Spinal stenosis, lumbar Sleep apnea Sjogren's disease Depression GERD (gastroesophageal reflux disease) Diabetes Surgical History History of vein stripping History of cholecystectomy History of lymph node biopsy H/O total hysterectomy Family History Mother Bowel obstruction Father Psychiatric disorder Brother Hypertension Sister Cancer Social History household members: spouse and family Smoking Status: Former smoker alcohol intake: never substance use type: does not use Discharge Plan Discharge Plan Patient Disposition: Home Provider Discharge Comment: You were admitted to the hospital with confusion, likely due to excess opiate dosing. Recommend cutting down the hydrocodone-acetaminophen to twice daily as needed. Discharge orders & Medications Prescriptions: Continued omeprazole 20 mg Capsule,Delayed Release(Dr/Ec) 20 mg PO DAILY Qty: 0 escitalopram oxalate [Lexapro] 20 mg Tablet 40 mg PO DAILY Qty: 0 Rx Instructions: Take 2 tablets by mouth once daily at 3PM oxyquinoline-sod.lauryl sulfat 0.025-0.01 % gel 1 ea vaginal 2XW Qty: 113.4 3RF Rx Instructions: Use one applicator full 1-2 times weekly cevimeline 30 mg Capsule 10 mg PO TID lisinopril 2.5 mg Tablet 2.5 mg PO DAILY insulin aspart U-100 [Novolog FlexPen U-100 Insulin] 100 unit/mL Insulin Pen 4 - 6 unit SUBCUT AC Patient Comments: takes it with meals. atorvastatin 20 mg Tablet 20 mg PO DAILY ondansetron 4 mg tablet,disintegrating 4 mg PO Q6H PRN (Reason: nausea and vomiting) Qty: 20 0RF ascorbic acid (vitamin C) [Vitamin C] 500 mg Tablet 500 mg PO DAILY Patient Comments: PT TO VERIFY DOSE vitamin B complex Tablet 1 tab PO DAILY cholecalciferol (vitamin D3) [Vitamin D3] 25 mcg (1,000 unit) Tablet 25 mcg PO DAILY bupropion HCl 150 mg Tablet Extended Release 24 Hr 150 mg PO QAM levothyroxine 125 mcg capsule 125 mcg PO DAILY Qty: 30 0RF cyclobenzaprine 10 mg tablet 10 mg PO BEDTIME Qty: 10 0RF gabapentin 600 mg tablet 1,200 mg PO BEDTIME morphine [MS Contin] 15 mg tablet extended release 15 mg PO BID Qty: 30 0RF Rx Instructions: 0400, 1200, 2000 insulin glargine [Lantus Solostar U-100 Insulin] 100 unit/mL (3 mL) insulin pen 15 unit SUBCUT BEDTIME Qty: 15 0RF Changed hydrocodone-acetaminophen 5-325 mg Tablet 1 tab PO BID Qty: 7 0RF Patient Comments: Pt states she takes 1 hydrocodone/acetaminophen 5/500 mg tab PO TID Follow up/Referrals: Saundra Cortez, PACindyC [Primary Care Provider] - Diet/Activity/Treatments Diet: Diet as Tolerated and Carb-consistent/Diabetic Activity: As tolerated, no restrictions Visit Report/Discharge Packet Instructions: DI for Opioid Use Disorder, DI for Prescription Opioid Use Stand Alone Forms: Patient Portal/API, Stroke Signs & Symptoms Discharge Data Primary Care Provider: Saundra Cortez Attending Provider: Andrea Esqueda Date/Time: 10/17/23 18:19
[2023-10-18] MEDS: MORPHINE ER 15 MG TABLET PO (09:38)
--- NOTE | 2023-10-18 09:41 | CM.DANOTE ---
Addendum entered by LAURIE Nugent 10/18/23 11:24: From [facility] manager business operations RN, no red flags in chart why they couldn't accept her back. Team will officially review Thursday. ASSISTANT CENTER MANAGER completed f2f and placed in folder for scanning into chart. SL Addendum entered by LAURIE Nugent 10/18/23 10:58: ASSISTANT CENTER MANAGER spoke with provider, agreeable to HH RN/DIRECTOR OF APPLICATION DEVELOPMENT. ASSISTANT CENTER MANAGER placed order. ASSISTANT CENTER MANAGER spoke with weekend intake at [facility], agreeable to review. ASSISTANT CENTER MANAGER faxed initial review to [facility]. ASSISTANT CENTER MANAGER spoke with dtr on the phone. Agreeable to HH. Appreciative of this ASSISTANT CENTER MANAGER's help. [facility] acceptance pending. SL Addendum entered by LAURIE Nugent 10/18/23 10:38: Per RN, there was some question from family about HH RN/DIRECTOR OF APPLICATION DEVELOPMENT. Per chart review, hx of [facility] in fall 2022. ASSISTANT CENTER MANAGER called and lvm with pt and called dtr, no response from either. Encouraged them to reach out to PCP to set up HH if interested now that they have left the hospital. LETI Original Note: Brief DCP Ax Note Pt is a 73yo F here following potential polypharm induced lethargy/overuse of chronic pain med usage. PCP Saundra Gamble [employer] medicare and self pay ASSISTANT CENTER MANAGER reviewed EMR. Per provider in morning rounds, dc home with family today. Per chart review, spouse and dtr to support at home in [facility]. Per RN, home today no additional CM needs. Pt left with family prior to being seen by this ASSISTANT CENTER MANAGER. Home with family no additional CM needs on previous admissions. Plan: home with family support. No CM needs identified. CM team will follow as needed. LAURIE Nugent Discharge Planning/Care Management CM Discharge Assessment Start: 10/18/23 09:38 Freq: Status: Active Protocol: Document 10/18/23 09:38 SL (Rec: 10/18/23 09:41 [id number]) Discharge Planning Assessment Assigned Dental Prosthetist LAURIE Mast DPOA/Assigned Designee Name uday Mccormick Contact Information [phone] Advance Directives? Yes Advance Directives on File No History Provided By Patient,Family Member,Medical Record Prior Living Arrangements House Household Members spouse,family Type of transporation used prior to Relies on Others admit Needs Assistance With Bathing,Meal Prep,Managing Medications,Home Chores / Shopping Patient/Family Preference Home with Home Health Comment Home w/supportive spouse and daughter. Attempting to secure HH w/patient's [employer] MCR. Close outpatient f/u recommended Discharge Plan Home Transportation Arrangement Spouse Referrals Initiated None needed Whiteboard Updated in Patient Room with No name and ext. # of Dental Prosthetist Comment pt left prior to being seen by this ASSISTANT CENTER MANAGER Review Status In Process Next Review Type Continued Stay Review
[2023-10-18 09:52] LABS: TSH w/ Reflex to FT4 0.35 uIU/mL (0.47-4.68)
--- NOTE | 2023-10-18 10:15 | PT-IP ANOTE ---
PT order received and hospitalist asks PT to d/c order. Will d/c PT order.
[2023-10-18 10:20] LABS: Free T4, Direct Thyroxine 1.26 ng/dL (0.78-2.19)
--- NOTE | 2023-10-18 11:18 | PC.NURSE ---
Pt very upset that she received narcan in the ED, screaming that she is going thru withdrawal now and needs to go home so she can take her regular medications. Daughter at bedside expressing concern that pt will go home and take too much medication this nurse educated both patient and about correct administration of pain medications. Both patient and stated that they understood and that patient never takes too much medication, that daughter just wants patient to not take pain medication. That statement started a family screaming match, in which patient stated just get me out of here. This nurse dressed patient and assisted patient to wheelchair, wheeled patient out to car while she slumped over in the wheelchair and moaned, I asked pt if she was ok and wanted to go home and she stated just get me to my car and with my . Pt was assisted into car, no further pt contact at this time. Daughter stayed behind and again expressed her concerns, this nurse explained that pt is able to make her own decisions and the matter is something that needs to be addressed with patient. No further contact at this time
== END 2023-10-18 11:00 | disposition home or self-care (01) ==
LOC: ED 18:16 → AC 18:20 → ICU 19:36
PROVIDERS: Internal Medicine; Admitting Provider Internal Medicine; Emergency Provider Emergency Medicine; Family Provider Internal Medicine; PCP Physician Assistant; Referring Provider Emergency Medicine; Visit Provider Internal Medicine
DX: G92.8 Other toxic encephalopathy (principal); T40.605A Adverse effect of unspecified narcotics, initial encounter; R82.71 Bacteriuria; F32.A Depression, unspecified; F41.9 Anxiety disorder, unspecified; E11.9 Type 2 diabetes mellitus without complications; E03.9 Hypothyroidism, unspecified; K21.9 Gastro-esophageal reflux disease without esophagitis; Z79.4 Long term (current) use of insulin
CPT/HCPCS: 36415; 70450; 71045; 80053; 80305; 80320; 80329; 81001; 82140; 82805; 82962; 83735; 84439; 84443; 85025; 85610; 87040; 87086; 87797; 93005; 96361; 96365; 96375; 99285; G0378; G0480; J0696; J2310

== ENCOUNTER → 2023-11-13 16:53 | Outpatient (CLI) | payer MEDICARE, SELFPAY ==
[2023-10-17 20:18] VITALS: BMI 23.2
--- NOTE | 2023-11-13 16:54 | DI.US.S_ITS ---
PROCEDURE: US ABDOMEN LIMITED INDICATIONS: FATTY LIVER AND RIGHT UPPER QUADRANT PAIN TECHNIQUE: Real-time scanning was performed of the abdominal and retroperitoneal organs, with image documentation. COMPARISON: [facility], US, US ABDOMEN LIMITED, 01/02/2019, 20:02. FINDINGS: Liver: Liver is normal in size . Mildly increased liver parenchymal echotexture is seen. 2 homogeneously isoechoic structures are noted in left hepatic lobe measures 1.4 x 2.1 x 0.8 cm and 2.9 x 2.1 x 0.9 cm in size and show no internal vascularity. Gallbladder: Gallbladder is surgically absent. Biliary ducts: Intrahepatic bile ducts are non-dilated. Extrahepatic bile duct caliber measures 6.4 mm. Normal is 6-7 mm or less in diameter, or 10 mm or less post-cholecystectomy. Pancreas: Visualized portion of pancreatic head and body appears atrophic. No discrete pancreatic lesion is seen. Miscellaneous: No free abdominal fluid. IMPRESSION: 1. Mild hepatic steatosis. 2 fairly isoechoic and solid appearing areas in left hepatic lobe which may represent atypical hemangioma versus areas of sparing. No internal vascularity is seen. 2. Gallbladder is surgically absent. 3. Atrophic appearing visualized portion of pancreas as above. Dictated by: Chalino Avina M.D. on 11/14/2023 at 12:24 Approved by: Chalino Avina M.D. on 11/14/2023 at 12:27
== END ==
PROVIDERS: Family Provider Internal Medicine; PCP Physician Assistant; Referring Provider Physician Assistant; Visit Provider Physician Assistant
DX: K76.0 Fatty (change of) liver, not elsewhere classified (principal); Z87.19 Personal history of other diseases of the digestive system; Z90.49 Acquired absence of other specified parts of digestive tract
CPT/HCPCS: 76705

== ENCOUNTER → 2023-11-24 17:02 | Outpatient (CLI) | payer MEDICARE, SELFPAY ==
[2023-10-17 20:18] VITALS: BMI 23.2
== END ==
PROVIDERS: Family Provider Internal Medicine; PCP Physician Assistant; Visit Provider Nurse Practitioner Family
DX: R39.9 Unspecified symptoms and signs involving the genitourinary system (principal); R30.0 Dysuria
CPT/HCPCS: 87077; 87086; 87186

== ENCOUNTER 2023-12-07 18:57 | Emergency (ER) | payer MEDICARE, SELFPAY ==
[2023-10-17 20:18] VITALS: BMI 23.2
== END 2023-12-07 19:20 | disposition left against medical advice (07) ==
PROVIDERS: Emergency Provider Emergency Medicine; Family Provider Internal Medicine; PCP Physician Assistant
DX: Z53.21 Procedure and treatment not carried out due to patient leaving prior to being seen by health care provider (principal)

== ENCOUNTER → 2023-12-09 18:01 | Outpatient (CLI) | payer MEDICARE, SELFPAY ==
[2023-10-17 20:18] VITALS: BMI 23.2
== END ==
PROVIDERS: Family Provider Internal Medicine; PCP Physician Assistant; Visit Provider Nurse Practitioner Family
DX: R35.0 Frequency of micturition (principal); R30.9 Painful micturition, unspecified
CPT/HCPCS: 87077; 87086; 87186

== ENCOUNTER → 2023-12-16 15:43 | Outpatient (CLI) | payer MEDICARE, SELFPAY ==
[2023-10-17 20:18] VITALS: BMI 23.2
== END ==
LOC: WC 15:43
PROVIDERS: Family Provider Internal Medicine; PCP Physician Assistant; Referring Provider Physician Assistant; Visit Provider Surgery
DX: L89.320 Pressure ulcer of left buttock, unstageable (principal)
CPT/HCPCS: 99212; 99213

== ENCOUNTER → 2023-12-21 15:17 | Outpatient (CLI) | payer MEDICARE, SELFPAY ==
[2023-10-17 20:18] VITALS: BMI 23.2
--- NOTE | 2023-12-21 15:18 | DI.RAD.S_ITS ---
PROCEDURE: XR DEXA AXIAL SKELETON INDICATIONS: Asymptomatic menopausal state COMPARISON: [facility], , DEXA PERIPHERAL, 10/27/2006, 14:23. FINDINGS: Lumbar Spine: Bone mineral density is 0.977 g/cm2, T score -0.6, normal. Left Hip: Bone mineral density 0.785 g/cm2, T score -1.3 this, osteopenia. Left Femoral Neck: Bone mineral density is 0.724 g/cm2, T score -1.1, osteopenia. Right Hip: Bone mineral density 0.778 g/cm2, T score -1.3, osteopenia. Right Femoral Neck: Bone mineral density 0.702 g/cm2, T score -1.3, osteopenia. Fracture Risk Calculation (when applicable): 10-year fracture risk of a major osteoporotic fracture 8.8 % and of a hip fracture 1.4 %. (T score greater or equal to -1.0 to: NORMAL) (T score from -1.1 to -2.4: OSTEOPENIA) (T score less than or equal to -2.5: OSTEOPOROSIS) IMPRESSION: Osteopenia. Follow-up guidelines as follows: Osteoporosis: Consider a repeat DEXA and Vertebral Fracture Assessment (VFA) exam in 2 years or sooner if medically necessary, to reassess this patient's status. Osteopenia: Consider a repeat DEXA in 2-3 years to reassess this patient's status, or if there is a new clinical indication. Normal: Consider a repeat DEXA in 5 years or sooner, or if there is a new clinical indication. Dictated by: Klaus Yeager M.D. on 12/21/2023 at 16:19 Approved by: Klaus Yeager M.D. on 12/21/2023 at 16:21
== END ==
PROVIDERS: Family Provider Internal Medicine; PCP Physician Assistant; Referring Provider Physician Assistant; Visit Provider Physician Assistant
DX: M85.80 Other specified disorders of bone density and structure, unspecified site (principal); Z13.820 Encounter for screening for osteoporosis; Z78.0 Asymptomatic menopausal state
CPT/HCPCS: 77080

== ENCOUNTER → 2024-01-19 14:34 | Outpatient (CLI) | payer MEDICARE, SELFPAY ==
[2023-10-17 20:18] VITALS: BMI 23.2
== END ==
LOC: WC 14:34
PROVIDERS: Family Provider Internal Medicine; PCP Physician Assistant; Referring Provider Physician Assistant; Visit Provider Surgery
DX: L84 Corns and callosities (principal); E10.628 Type 1 diabetes mellitus with other skin complications; I87.2 Venous insufficiency (chronic) (peripheral); Z87.891 Personal history of nicotine dependence
CPT/HCPCS: 99213

== ENCOUNTER → 2024-08-12 16:08 | Outpatient (CLI) | payer MEDICARE, SELFPAY ==
[2023-10-17 20:18] VITALS: BMI 23.2
--- NOTE | 2024-08-18 16:05 | DIAB.MNT ---
Initial Diabetes Medical Nutrition Therapy Assessment Name: Alissa Kirby Date: 08/12/24 Time: 420-5p Dx: Type I Diabetes Provider: Dana Alissa presents for initial Dm visit. Reports diagnosis at age 48 in 1998 with DKA presentation. Endorses a number of diagnosis including Reynauds, thyroid insufficiencies, fibromyalgia, and Sjogrens. States she was recently dx with fatty liver disease and wants to know what to eat. Difficulty determining food choices since she watches carbs with T1Dm and now fats with fatty liver. Endorses unintentional wt loss over the last 6 years. States with her daughter passing 6 years ago, her health in general has not been its best. Lost her appetite and has struggled to eat since. Hospitalized with colitis per report. Demonstrates physical s/s of PCM. See bargeman at [place] via virtual visits. May benefit from pump therapy given low time in range per CGM. Also had a low incident while in clinic today. Was treating with homemade candies but then provided 15g CHO which brought BG up. Barriers to care: drives her to appts and can only drive short distances. Appt short due to late arrival. Anthropometrics: Ht: 68 Wt: 120# reported Self-Monitoring Blood Glucose: Poor time in range with excessive time in high and very high. TIR Today: 28% very high 26% high 42% in range 3% low 1% very low Av mg/dl GMI: 8.1% std dev: 94mg/dl variance 46.8mg/dl Diabetes Medications: 15u Lantus 2-3u Novolog 2-3x per day + correction Pertinent Labs: HgA1c: 8.5-8.7% reported Past Medical History: (Last Reviewed 04/25/24 @ 14:19 by KENYA Lorenz) Depression Diabetes Fibromyalgia GERD (gastroesophageal reflux disease) Hyperlipidemia Hypothyroidism Meningioma Restless leg syndrome Sjogren's disease Sleep apnea Spinal stenosis, lumbar Venous stasis dermatitis of both lower extremities Nutrition Rx: Carbohydrates: Meal:45g Snack:15-30g Nutrition Diagnosis: - Predicted inadequate energy intake r/t limited appetite and nutrition knowledge deficit aeb pt report Intervention: This participant was very receptive. Provided appropriate educational handouts. Discussed the following topics: Fatty Liver MNT and balancing with T1DM Potential for insulin pump: types and action ways to increase wt with lower sat fat options Fiber importance and sources Created SMART goals for patient self-care and success. Goals: Avoid sat fats- new Read pump handouts- new Follow-up: FREDY MORA follow-up in 2-3 weeks Karen Sibley RDN, MORGAN Certified Diabetes Care and Card Reader P: [phone] Thank you for this referral
== END ==
PROVIDERS: Family Provider Internal Medicine; PCP Physician Assistant; Referring Provider Physician Assistant
DX: E11.65 Type 2 diabetes mellitus with hyperglycemia (principal); E03.9 Hypothyroidism, unspecified; M35.00 Sjogren syndrome, unspecified; M79.7 Fibromyalgia; K76.0 Fatty (change of) liver, not elsewhere classified; Z71.3 Dietary counseling and surveillance; R63.4 Abnormal weight loss; Z79.4 Long term (current) use of insulin
CPT/HCPCS: 97802

== ENCOUNTER → 2024-11-15 15:05 | Outpatient (CLI) | payer MEDICARE, SELFPAY ==
[2023-10-17 20:18] VITALS: BMI 23.2
--- NOTE | 2024-11-15 15:12 | DIAB.FU ---
Follow-up Diabetes Education Assessment Name: Alissa Kirby Date: 11/15/24 Time: 310-4p Dx: Type I Diabetes Provider: Dana Maxwell presents for follow-up Dm visit. Reports diagnosis at age 48 in 1998 with DKA presentation. Endorses a number of diagnosis including Reynauds, thyroid insufficiencies, fibromyalgia, fatty liver, and Sjogrens. Since our last visit, has had DKA, pneumonia and influenza A since last visit. Was hospitalized and rehab at a SNF. Was seeing a [facility], but now looking for local care. Also interested in an insulin pump. Running out of syringes. Uses syringes to pull insulin from pens. Prefers syringes over pens. Reports recent A1c reported in the 8-9% range. Endorses being conscious of carb intake. Dosed 3u for eggs, toast, sf jam, and milk with chocolate ovaltine, resulted in BG >250mg/dl. Endorses fear of lows, due to having h/o very low BG <40mg/dl. Runs BG high before bed to avoid lows. Wakes in the middle of the night and eats chocolate pb cups to avoid lows, even when elevated. Denies any dangerous lows since starting CGM. Interested in pump therapy. After discussion of options, prefers to try 780G. Has good support with live in grandson and his finace. Low alerts set to 150mg/dl. She would prefer 100mg/dl. Avoiding all saturated fat due to fatty liver dx. Has eye appt in two weeks. Anthropometrics: Ht: 68 Wt: 121# reported today with goal of 130# 112# 3/ reported 120# reported last visit Self-Monitoring Blood Glucose: Low time in range with excessive time in high and very high. TIR Today: 44% very high 28% high 28% in range 0% low <1% very low Av mg/dl GMI: 9.0% std dev: 83mg/dl variance 34.8mg/dl TIR Today: 28% very high 26% high 42% in range 3% low 1% very low Av mg/dl GMI: 8.1% std dev: 94mg/dl variance 46.8mg/dl Diabetes Medications: 15u Lantus 3-4u Novolog 2-3x per day Pertinent Labs: HgA1c: 8.5-8.7% reported Past Medical History: (Last Reviewed 04/25/24 @ 14:19 by KENYA Lorenz) Depression Diabetes Fibromyalgia GERD (gastroesophageal reflux disease) Hyperlipidemia Hypothyroidism Meningioma Restless leg syndrome Sjogren's disease Sleep apnea Spinal stenosis, lumbar Venous stasis dermatitis of both lower extremities Intervention: This participant was very receptive. Provided appropriate educational handouts. Discussed the following topics: Insulin pump types CGM alerts Saturated fat in moderation Insulin pump process Local endocrinologists Fears about lows and risks Created SMART goals for patient self-care and success. Goals: Avoid sat fats- met Read pump handouts- not met but discussed in person Connect with [employer], as discussed- new Follow-up: FREDY MORA follow-up in 2-3 weeks. Will review nutrition and insulin dosing next visit prn. Karen Sibley RDN, CDCES Certified Diabetes Care and Business Development Professional P: [phone] Thank you for this referral
== END ==
PROVIDERS: Family Provider Internal Medicine; PCP Physician Assistant; Referring Provider Physician Assistant
DX: E10.9 Type 1 diabetes mellitus without complications (principal); K76.0 Fatty (change of) liver, not elsewhere classified; Z71.3 Dietary counseling and surveillance
CPT/HCPCS: G0108

== ENCOUNTER → 2024-12-13 14:45 | Outpatient (CLI) | payer MEDICARE, SELFPAY ==
[2023-10-17 20:18] VITALS: BMI 23.2
--- NOTE | 2024-12-13 15:12 | DIAB.MNTFU ---
Follow-up Diabetes Medical Nutrition Therapy Assessment Name: Alissa Kirby Date: 12/13/24 Time: 310-350p Dx: Type I Diabetes Provider: Dana Alissa presents for follow-up Dm visit. Reports diagnosis at age 48 in 1998 with DKA presentation. Endorses a number of diagnosis including Reynauds, thyroid insufficiencies, fibromyalgia, fatty liver, and Sjogrens. Increased Lantus dose since she gained wt from 112# to 130#. Meal times: taking 1-2u ac, 2-3uac and 3-4u ac. Reports eating sugar if CGM arrow is pointing down, even when >180mg/dl. Worries about quick approaching lows. Seems to go low when doing house work. States she some times does not know what foods to choose between fatty liver and DM. Plans to get labs drawn on Thursday for analysis internship. Does not have an reed or wind instrument repairer currently. Looking forward to pump therapy. Anthropometrics: Ht: 68 Wt: 130# reported today 12/13 121# reported 11/15/24 with goal of 130# 112# 10/21 reported 120# reported 07/2024 Self-Monitoring Blood Glucose: Similar time in range as last visit with excessive elevations and some lows. TIR Today: 47% very high 24% high 28% in range 1% low <1% very low Av mg/dl GMI: 9.0% std dev: 87mg/dl variance 34.9mg/dl TIR Today: 44% very high 28% high 28% in range 0% low <1% very low Av mg/dl GMI: 9.0% std dev: 83mg/dl variance 34.8mg/dl Diabetes Medications: 23u Lantus 1-4u Novolog 2-3x per day Pertinent Labs: HgA1c: 8.5-8.7% reported Past Medical History: (Last Reviewed 04/25/24 @ 14:19 by KENYA Lorenz) Depression Diabetes Fibromyalgia GERD (gastroesophageal reflux disease) Hyperlipidemia Hypothyroidism Meningioma Restless leg syndrome Sjogren's disease Sleep apnea Spinal stenosis, lumbar Venous stasis dermatitis of both lower extremities Nutrition Rx: Carbohydrates: Meal:30-45g Snack:15-30g Nutrition Diagnosis: - Predicted excessive CHO intake r/t limited protein and some high CHO choices aeb pt report and diet recall- new Intervention: This participant was very receptive. Provided appropriate educational handouts. Discussed the following topics: Fatty liver MNT Carb portion recs and balancing with protein Saturated fats Encouraged endo Physical activity Created SMART goals for patient self-care and success. Goals: Connect with [employer], as discussed- met Contact PCP for endo referral- new Start walking and bring a snack- new Avoid cereal and choose PB sandwich- new Try just peanuts pb- new Follow-up: FREDY MORA follow-up in 4 weeks. Karen Sibley RDN, [facility] Certified Diabetes Care and Rag Grader P: [phone] Thank you for this referral
== END ==
PROVIDERS: Family Provider Internal Medicine; PCP Physician Assistant; Referring Provider Physician Assistant
DX: E11.9 Type 2 diabetes mellitus without complications (principal); I73.00 Raynaud's syndrome without gangrene; M79.7 Fibromyalgia; K76.0 Fatty (change of) liver, not elsewhere classified; M35.00 Sjogren syndrome, unspecified; E03.9 Hypothyroidism, unspecified; Z71.3 Dietary counseling and surveillance; Z79.4 Long term (current) use of insulin
CPT/HCPCS: 97803

== ENCOUNTER → 2024-12-21 16:12 | Outpatient (CLI) | payer MEDICARE, SELFPAY ==
[2023-10-17 20:18] VITALS: BMI 23.2
[2024-12-21 17:59] LABS: Appearance Urine UA CLEAR; Bilirubin Urine UA NEGATIVE (NEGATIVE); Color Urine UA YELLOW; Glucose Urine UA NEGATIVE (Negative); Ketones Urine UA NEGATIVE (NEGATIVE); Leukocyte Esterase Urine UA NEGATIVE (NEGATIVE); Nitrite Urine UA NEGATIVE (Negative); Occult Blood Urine UA NEGATIVE (Negative); Protein Urine UA NEGATIVE (Negative); Specific Gravity Urine UA 1.015 (1.000-1.035); Urobilinogen Urine UA 0.2 E.U./dL (0.2)
[2024-12-21 18:10] LABS: Bacteria Urine None Seen; Culture Indicated Urine Cult Not Indicated; RBC Urine None Seen (0-5/HPF); Squamous Epithelial Cell Urine None Seen (0-5/HPF); Urine Volume 10mL (spun); WBC Urine None Seen (0-5/HPF)
== END ==
LOC: LAB 16:13
PROVIDERS: Family Provider Internal Medicine; PCP Physician Assistant; Visit Provider Obstetrics & Gynecology Gynecology
DX: R39.15 Urgency of urination (principal); N39.0 Urinary tract infection, site not specified
CPT/HCPCS: 81001

== ENCOUNTER → 2025-01-11 14:00 | Outpatient (CLI) | payer MEDICARE, SELFPAY ==
[2023-10-17 20:18] VITALS: BMI 23.2
--- NOTE | 2025-01-19 14:10 | DIAB.MNTFU ---
Follow-up Diabetes Medical Nutrition Therapy Assessment Name: Alissa Kirby Date: 01/11/25 Time: 205-3p Dx: Type I Diabetes Provider: Dana Maxwell presents for follow-up Dm visit. Reports diagnosis at age 48 in 1998 with DKA presentation. Endorses a number of diagnosis including Reynauds, thyroid insufficiencies, fibromyalgia, fatty liver, and Sjogrens. Endorses stress lately and usually stress eats nibbling when feeing this way per report. Has cut out cereal States fatty liver dx makes her very nervous and would like to review nutrition recs again Loves pesto and has been eating more recently Loves spam, gets the 25% reduced sodium, but saturated fat is still high. UTD on eye appt Treating lows with fresh oranges or toast with sugar. Saw a mail delivery supervisor in [place] and needs labs done for insulin pump acquisition per report. Plans to complete pump training here with family living educator/RD. Would benefit from potential endo referral closer to home, ie [facility]. Anthropometrics: Ht: 68 Wt: 138# reported today 12/2024 130# reported 12/13 121# reported 11/15/24 with goal of 130# 112# 10/21 reported 120# reported 07/2024 Self-Monitoring Blood Glucose: Similar time in range as last visit with some improvement in hyperglycemia. TIR Today: 40% very high 30% high 28% in range 1% low <1% very low Av mg/dl GMI: 8.9% std dev: 83mg/dl variance 35.8mg/dl TIR Today: 47% very high 24% high 28% in range 1% low <1% very low Av mg/dl GMI: 9.0% std dev: 87mg/dl variance 34.9mg/dl Diabetes Medications: 26u Lantus 1-4u Novolog 2-3x per day Pertinent Labs: HgA1c: 8.5-8.7% reported Past Medical History: (Last Reviewed 04/25/24 @ 14:19 by KENYA Lorenz) Depression Diabetes Fibromyalgia GERD (gastroesophageal reflux disease) Hyperlipidemia Hypothyroidism Meningioma Restless leg syndrome Sjogren's disease Sleep apnea Spinal stenosis, lumbar Venous stasis dermatitis of both lower extremities Nutrition Rx: Carbohydrates: Meal:30-45gSnack:15-30g Nutrition Diagnosis: - Predicted excessive saturated fat intake r/t nutrition knowledge deficit aeb pt report- new - Food and nutrition knowledge deficit r/t needing review of Rule of 15 to treat lows with quick acting carb aeb pt report of treating with more complex carbs- new Intervention: This participant was very receptive. Provided appropriate educational handouts. Discussed the following topics: Fatty liver MNT Saturated fats Encouraged endo Rule of 15 for treating lows lab work for pump acquisition Mediterranean diet Created SMART goals for patient self-care and success. Goals: Connect with [employer], as discussed- met Contact PCP for endo referral- in progress Start walking and bring a snack- met Avoid cereal and choose PB sandwich- met Try just peanuts pb- in progress Look for spam lite- new Complete labs- new Try rule of 15 for lows- new Bring insulin log book next visit- new Follow-up: FREDY MORA follow-up in 3-4 weeks. Karen Sibley RDN, MORGAN Certified Diabetes Care and Career Discovery Teacher P: [phone] Thank you for this referral
== END ==
LOC: DIET 14:00
PROVIDERS: Family Provider Internal Medicine; PCP Physician Assistant; Referring Provider Physician Assistant
DX: E11.65 Type 2 diabetes mellitus with hyperglycemia (principal); K76.0 Fatty (change of) liver, not elsewhere classified; E03.9 Hypothyroidism, unspecified; Z71.3 Dietary counseling and surveillance; Z79.4 Long term (current) use of insulin
CPT/HCPCS: 97803

== ENCOUNTER → 2025-02-08 13:01 | Outpatient (CLI) | payer MEDICARE, SELFPAY ==
[2023-10-17 20:18] VITALS: BMI 23.2
--- NOTE | 2025-02-08 14:50 | DIAB.MNTFU ---
Addendum entered by Karen Sibley 02/08/25 15:05: Type I Diabetes (not Type II) Original Note: Follow-up Diabetes Medical Nutrition Therapy Assessment Name: Alissa Kirby Date: 02/08/25 Time: 105-150p Dx: Type II Diabetes Alissa presents for follow-up Dm visit. Reports diagnosis at age 48 in 1998 with DKA presentation. Endorses a number of diagnosis including Reynauds, thyroid insufficiencies, fibromyalgia, fatty liver, and Sjogrens. Reports stress with health conditions. Endorses feeling depressed and unable to follow through on tasks as a result. Reports feeling down about kidney status and liver health. states she can feel her liver feeling bigger. Though does also reports some wt gain recently, post hospital admission with improved BG. Encouraged her to chat more with PCP in regards to this. In review of last kidney labs, last year, GFR was >60 and creatinine was low. Recent urinalysis, protein, glucose, and ketones were WNL. Again, encouraged her to get updated labs and chat more with PCP about liver and kidney health status. States she has switched to lite Spam, with lower saturated fat. Tried Rule of 15 for lows, which she reports we well. used honey and keep glucose tabs at the house. Wants to know hwo to avoid high fructose corn syrup. Questions regarding CHO in vamshi crackers she consumes. States she still needs a local endo referral. Diet Recall: 10a: eggs, olive oil, with pesto and slice of ww thin bread OR ww bread with Garza pb and sf jam snacking through the day: vamshi crackers 20-40g CHO, oat bites 17g CHO 7p: pasta x 1/2c with cheese and broccoli Anthropometrics: Ht: 68 Wt: 138# reported 12/2024 130# reported 12/13 121# reported 11/15/24 with goal of 130# 112# 10/21 reported 120# reported 07/2024 Self-Monitoring Blood Glucose: Improved TIR since last visit, though still having excessive hyperglcyemia. TIR Today: 19% very high 36% high 44% in range 1% low <1% very low Av mg/dl GMI: 8.0% std dev: 69mg/dl variance 35.1mg/dl TIR Today: 40% very high 30% high 28% in range 1% low <1% very low Av mg/dl GMI: 8.9% std dev: 83mg/dl variance 35.8mg/dl Diabetes Medications: 26u Lantus 1-4u Novolog 2-3x per day Pertinent Labs: HgA1c: 8.5-8.7% reported Past Medical History: (Last Reviewed 04/25/24 @ 14:19 by KENYA Lorenz) Depression Diabetes Fibromyalgia GERD (gastroesophageal reflux disease) Hyperlipidemia Hypothyroidism Meningioma Restless leg syndrome Sjogren's disease Sleep apnea Spinal stenosis, lumbar Venous stasis dermatitis of both lower extremities Nutrition Rx: Carbohydrates: Meal:30-45gSnack:15-30g Nutrition Diagnosis: - Predicted excessive saturated fat intake r/t nutrition knowledge deficit aeb pt report- improved - Food and nutrition knowledge deficit r/t needing review of Rule of 15 to treat lows with quick acting carb aeb pt report of treating with more complex carbs- improved - Food and nutrition knowledge deficit r/t needing info about avoiding HFCS aeb pt report- new Intervention: This participant was very receptive. Provided appropriate educational handouts. Discussed the following topics: Fatty liver MNT Saturated fats Encouraged endo Ways to avoid HFCS lab work for pump acquisition prn CHO content of some of her favorite snacks Created SMART goals for patient self-care and success. Goals: Look for spam lite- met Complete labs- in progress Try rule of 15 for lows- met Bring insulin log book next visit- not met Look for non HFCS ketchup- new Check vamshi crackers total CHO at home- new Discuss [facility] end[facility] referral with PCP- new Follow-up: FREDY MORA follow-up in 3-4 weeks. Karen Sibley RDN, MORGAN Certified Diabetes Care and Vp Of Digital Marketing P: [phone] Thank you for this referral
== END ==
LOC: DIET 13:01
PROVIDERS: Family Provider Internal Medicine; PCP Physician Assistant
DX: E10.65 Type 1 diabetes mellitus with hyperglycemia (principal); E03.8 Other specified hypothyroidism; K76.0 Fatty (change of) liver, not elsewhere classified; Z71.3 Dietary counseling and surveillance
CPT/HCPCS: 97803

== ENCOUNTER → 2025-05-23 16:08 | Outpatient (CLI) | payer MEDICARE, SELFPAY ==
[2023-10-17 20:18] VITALS: BMI 23.2
[2025-05-23 17:22] LABS: Hemoglobin A1C% w Est Avg Glu 7.9 % (4.0-6.0)
[2025-05-23 17:23] LABS: Hematocrit 36.6 % (36-46); Hemoglobin 12.4 g/dL (12.0-16.0); Mean Corpuscular HGB Conc 34.0 % (30-36); Mean Corpuscular Hemoglobin 29.4 PG (26-34); Mean Corpuscular Volume 86.4 fL (80-100); Platelet Count 227 X10^3/uL (150-400)
[2025-05-23 17:26] LABS: Add Manual Diff / Slide Review YES
[2025-05-23 17:53] LABS: Alanine Aminotransferase 19 IU/L (<35); Albumin 3.7 g/dL (3.5-5.0); Albumin Globulin Ratio 1.0 (1.0-2.8); Alkaline Phosphatase 50 U/L (38-126); Blood Urea Nitrogen 20 mg/dL (7-17); Calcium 9.0 mg/dL (8.4-10.2); Carbon Dioxide 33 mmol/L (22-32); Chloride 99 mmol/L (98-107); Estimated Glomerular Filt Rate > 60 mL/min (>60); Globulin 3.7 g/dL (1.7-4.1); Glucose 143 mg/dL (70-99); HEMOLYSIS < 15 (0-50); Potassium 4.2 mmol/L (3.4-5.1); Sodium 137 mmol/L (137-145); Total Protein 7.4 g/dL (6.3-8.2)
[2025-05-23 17:55] LABS: Eosinophils Percent Manual 25.0 % (2-4); Lymphocytes Percent Manual 43.0 % (25-45); Monocytes Percent Manual 5.0 % (2-11); Neutrophils Absolute Manual 1512 /uL (3000-5900); Segmented Neutrophils Percent 27.0 % (38-70); Total Cells Counted 100
[2025-05-23 17:56] LABS: Polychromasia 1+
[2025-05-29 15:10] LABS: GAD-65 Antibody <5.0 U/mL (0.0-5.0)
== END ==
PROVIDERS: PCP Physician Assistant; Referring Provider Family Medicine; Visit Provider Obstetrics & Gynecology Gynecology
DX: Z01.818 Encounter for other preprocedural examination (principal); E10.9 Type 1 diabetes mellitus without complications
CPT/HCPCS: 36415; 80053; 83036; 85007; 85025; 86341